=== PATIENT | male | born 1935 | race Caucasian/White ===

== ENCOUNTER 2018-12-09 19:23 | Inpatient (IN) | payer BC ==
[~2018-12-09] VITALS: Ht 165.1 cm; Wt 62.0 kg
[2018-12-09] MEDS ORDERED: AUGM500T34 PO (19:32)
[2018-12-09] MEDS ORDERED: DONE10TA90 PO (19:32)
[2018-12-09] MEDS ORDERED: FLOM0.4C39 PO (19:32)
[2018-12-09] MEDS ORDERED: DEPA500T2 PO (19:32)
[2018-12-09] MEDS: DONEPEZIL 5 MG TAB PO SCH (21:00)
[2018-12-09 22:06] LABS: BASO # 0.1 10^3/uL (0.0-0.2); BASO % 0.5 % (0.0-1.0); EOS # 0.1 10^3/uL (0.0-0.5); EOS % 1.1 % (0.0-3.0); HEMATOCRIT 30.4 % (42.0-52.0); HEMOGLOBIN 10.2 g/dl (13.5-17.5); LYMPH # 1.1 10^3/uL (1.5-5.0); LYMPH % 10.2 % (24.0-44.0); MEAN CORPUSCULAR HEMOGLOBIN 33.4 pg (27.0-33.0); MEAN CORPUSCULAR HGB CONC 33.6 g/dl (32.0-36.5); MEAN CORPUSCULAR VOLUME 99.7 fl (80.0-96.0); MONO % 9.7 % (0.0-5.0); NEUTROPHILS % 77.7 % (36.0-66.0); PLATELET COUNT, AUTOMATED 325 10^3/uL (150-450); RED BLOOD COUNT 3.05 10^6/uL (4.30-6.10); WHITE BLOOD COUNT 10.3 10^3/uL (4.0-10.0)
[2018-12-09 22:27] LABS: ALBUMIN 2.6 GM/DL (3.2-5.2); ALT/SGPT 20 U/L (12-78); BILIRUBIN,DIRECT < 0.1 MG/DL (0.0-0.2); BILIRUBIN,TOTAL 0.4 MG/DL (0.2-1.0); BLOOD UREA NITROGEN 31 MG/DL (7-18); CALCIUM LEVEL 8.6 MG/DL (8.8-10.2); CARBON DIOXIDE LEVEL 27 MEQ/L (21-32); CHLORIDE LEVEL 107 MEQ/L (98-107); CREATININE FOR GFR 1.28 MG/DL (0.70-1.30); GLUCOSE, FASTING 95 MG/DL (70-100); POTASSIUM SERUM 5.5 MEQ/L (3.5-5.1); SODIUM LEVEL 140 MEQ/L (136-145); TOTAL PROTEIN 7.2 GM/DL (6.4-8.2)
[2018-12-09 23:06] LABS: NT-PRO BNP 1391 PG/ML (<450)
--- NOTE | 2018-12-10 00:21 | HPEPDOC ---
General Date of Admission Date of Service: Dec 10, 2018 Chief Complaint The patient is a 83-year-old male admitted with a reason for visit of Weakness. History of Present Illness Pt is a 83 yo male with PMH of RA, COPD, dementia, and HTN presented to [facility] due to 3 weeks of generalized weakness and right fifth toe wound for a month. It was noted that he had been receiving augmentin about a week ago without improvement, and that his staff nuclear weapons officer said he will need to see a vascular surgeon. It was noted that it first appeared as tissue irritation/erythema, and it evolved into an eschar/gangrene; pt reported intermittent pain in the toe. No other symptoms reported. Pt was treated for PNA in August, but he still has some productive cough with yellow sputum. Pt usually walks with a walker at home, but he has not been able to since the generalized weakness, and family reported worsening of weakn ess especially from 2-3 days ago. Denies any fever, chills, nausea, vomiting, dyspnea, abdominal pain, constipation, or diarrhea. Home Medications Scheduled Amoxicillin/Potassium Clav (Augmentin 500-125 Tablet) 1 Each Tablet, 500 MG PO BID, (Reported) 10 DAYS SUPPLY: STARTING 12/01/18 Cholecalciferol (Vitamin D3) (Vitamin D3) 1,000 Unit Tablet, 1,000 UNIT PO QHS, (Reported) Cyanocobalamin (Vitamin B-12) (Vitamin B-12) 1,000 Mcg Tab.subl, 1,000 MCG SL QHS, (Reported) Divalproex Sodium (Divalproex Sodium ER) 500 Mg Tab.er.24h, 500 MG PO QHS, ( Reported) Donepezil HCl (Donepezil HCl) 10 Mg Tablet, 10 MG PO QHS, (Reported) Folic Acid (Folic Acid) 1 Mg Tablet, 1 MG PO QHS, (Reported) Tamsulosin HCl (Flomax) 0.4 Mg Capsule, 0.8 MG PO QHS, (Reported) Allergies Coded Allergies: No Known Allergies (Unverified , 12/09/18) Past Medical History Medical History Dementia Past pneumonia HTN Rheumatoid arthritis COPD Social History * Smoker: Denies A-FIB/CHADSVASC A-FIB History Current/History of A-Fib/PAF?: No Review of Systems Constitutional: Reports: Weakness (Generalized); Denies: Chills, Fever Skin: Reports: Lesions (right little toe) Pulmonary: Reports: Cough; Denies: Dyspnea, Pleuritic Chest Pain Cardiovascular: Denies: Chest Pain, Palpitations Gastrointestinal: Denies: Abdominal Pain, Diarrhea, Constipation Neurological: Reports: Other Symptoms (baseline dementia) Physical Examination General Exam: Positive: Alert, Cooperative, No Acute Distress Eye Exam: Negative: Sclera icteric ENT Exam: Positive: Atraumatic Neck Exam: Positive: Supple Chest Exam: Positive: Clear to auscultation, Normal air movement; Negative: Rales, Rhonchi, Wheezing Heart Exam: Positive: Rate Normal, Regular Rhythm, Normal S1, Normal S2; Negative: Murmurs Abdomen Exam: Positive: Normal bowel sounds, Soft; Negative: Tenderness Skin Exam: Positive: Breakdown (pruluent drainag on right little toe and web area b/w right 4th and 5th toe), Lesion (Eschar/necrosis of 5th right toe) Neuro Exam: Positive: Strength at 5/5 X4 ext Psych Exam: Positive: Mood NL, Other (mild dementia/slowed response) Vital Signs Vital Signs Date Time Temp Pulse Resp B/P (MAP) Pulse Ox O2 Delivery O2 Flow Rate FiO2 12/09/18 23:23 64 17 191/87 (121) 94 12/09/18 20:52 99.1 Room Air Laboratory Data Labs 24H Laboratory Tests 2 12/09/18 21:34: Immature Granulocyte % (Auto) 0.8, White Blood Count 10.3H, Red Blood Count 3.05L, Hemoglobin 10.2L, Hematocrit 30.4L, Mean Corpuscular Volume 99.7H, Mean Corpuscular Hemoglobin 33.4H, Mean Corpuscular Hemoglobin Concent 33.6, Red Cell Distribution Width 15.7H, Platelet Count 325, Neutrophils (%) (Auto) 77.7H, Lymphocytes (%) (Auto) 10.2L, Monocytes (%) (Auto) 9.7H, Eosinophils (%) (Auto) 1.1, Basophils (%) (Auto) 0.5, Neutrophils # (Auto) 8.0, Lymphocytes # (Auto) 1.1L, Monocytes # (Auto) 1.0H, Eosinophils # (Auto) 0.1, Basophils # (Auto) 0.1, Nucleated Red Blood Cells % (auto) 0.0, Anion Gap 6L, Glomerular Filtration Rate 57.0, Lactic Acid Level 1.0, Calcium Level 8.6L, Aspartate Amino Transf (AST/SGOT) 28, Alanine Aminotransferase (ALT/SGPT) 20, Alkaline Phosphatase 78, Total Bilirubin 0.4, Direct Bilirubin < 0.1, SS-Ryu-J-Type Natriuretic Peptide 1391H, Total Protein 7.2, Albumin 2.6L, Albumin/Globulin Ratio 0.57L CBC/BMP Laboratory Tests 12/09/18 21:34 Red Blood Count 3.05 L, Mean Corpuscular Volume 99.7 H, Mean Corpuscular Hemoglobin 33.4 H, Mean Corpuscular Hemoglobin Concent 33.6, Red Cell Distribution Width 15.7 H, Neutrophils (%) (Auto) 77.7 H, Lymphocytes (%) (Auto) 10.2 L, Monocytes (%) (Auto) 9.7 H, Eosinophils (%) (Auto) 1.1, Basophils (%) (Auto) 0.5, Neutrophils # (Auto) 8.0, Lymphocytes # (Auto) 1.1 L, Monocytes # (Auto) 1.0 H, Eosinophils # (Auto) 0.1, Basophils # (Auto) 0.1 Microbiology Microbiology 12/09/18 Blood Culture, Received Pending Assessment/Plan 1. Right fifth toe eschar/necrosis 2/2 cellulitis vs osteomyelitis vs antiphospholipid syndrome ulcer vs calciphylaxis vs less likely herpetic shagufta -MRI right foot ordered to r/o osteomyelitis, wound cx and gram stain -hold home med Ca supplement. Phos and PTH lvl pending -Start IV Vanco; wound care -Consider staff nuclear weapons officer and/or vascular surgeon consult in the morning 2. Rheumatoid arthritis -Pt has been having home med MTX on held -cont to hold MTX at this time; cont home med folic acid 3. COPD -no signs of exacerbation at this time. Cont duoneb, oxy therapy 4. HTN -Not on home med. Pt was on HCTZ but had not been on the medication. BP elevated with SBP 170s in ER. Give one dose of 12.5 HCTZ now. Vital signs as scheduled. HCTZ 12.5mg daily with holding parameters 5. Dementia -Cont home meds DVT prophylaxis SCD and TEDS diet: low Na diet I, Oscar Allan, have independently examined this patient and performed my own physical exam, as well as reviewed the documentation and edited where necessary. I have discussed in detail with the resident / student the findings and plan of treatment as documented by the resident / student and edited their note. There is concern for acute osteomyelitis, I started broad-spectrum antibiotics empirically. Foot MRI ordered to rule out or confirm osteomyelitis of right 5th toe. Appreciate/agree with staff nuclear weapons officer consult. We will check sedimentation rate and CRP I agree with their findings and treatment plan and have edited their documentation. I will continue to follow the patient during this hospital stay. Plan / VTE VTE Prophylaxis Ordered?: Yes KIRBY FULTON DO Dec 10, 2018 00:21 OSCAR ALLAN DO Dec 10, 2018 06:44
[2018-12-10] MEDS ORDERED: COMBIVENT RESPIMAT 100-20MCG INHALER 4GM INH SCH (00:30)
[2018-12-10] MEDS ORDERED: VANCOMYCIN HCL 1 MG in IV FLUID PLACE HOLDER 1 EA IV SCH (00:45)
[2018-12-10] MEDS ORDERED: VANCOMYCIN HCL 1,000 MG, VIAL MATE ADAPTER 1 EACH in D5W 250 ML IV ONE (01:00)
[2018-12-10] MEDS ORDERED: B-12100011 SL (01:02)
[2018-12-10] MEDS ORDERED: D31000TA PO (01:02)
[2018-12-10] MEDS ORDERED: DIVA500T9 PO (01:02)
[2018-12-10] MEDS ORDERED: FOLI1TAB11 PO (01:02)
[2018-12-10] MEDS ORDERED: AUGM500T34 PO (01:02)
[2018-12-10] MEDS ORDERED: hydroCHLOROthiazide 12.5 MG CAPSULE PO ONE (01:15)
--- NOTE | 2018-12-10 02:03 | PHACANCOPD ---
PHARMACY VANCOMYCIN DOSING Pt Demographics Demographics Patient Age:83 , Weight:62.270 , Gender: male Adjusted Body Weight Date: 12/10/18, Adjusted Body Weight: Kg Events Past 24 Hours Events Past 24 Hours: NO: Dialysis, Diuretic Therapy, Change in CrCl, Fever, Elevation in WBC, Pending Diagnostics, Pending Procedures, Other Vancomycin Vancomycin Target Ranges: 15-20 mcg/ml Vancomycin Load Y/N: No Load Dose Date Time Vancomycin Load Dose: Date: Time: Vancomycin Dose Date: 12/10/18. Current Vancomycin Dose: [1000mg q24h] Intermittent Dosing?: No Labs Labs Item Value Date Time White Blood Count 10.3 10^3/uL H 12/09/182133 Glomerular Filtration Rate 57.0 12/09/182133 Creatinine 1.28 MG/DL 12/09/182133 Blood Urea Nitrogen 31 MG/DL H 12/09/182133 Vital Signs Label Value Date Time Patient Temperature 99.1 degrees F 12/09/182051 Temperature Source Temporal 12/09/182051 Micro Microbiology 12/09/18 Blood Culture, Received Pending Creatinine Clearance Date:12/10/18. Creatinine Clearance: [~35]. Pending Labs Trough 09-13 @1999 Assessment and Plan Maintaining Current Dose?: Yes Reason for dose change: No Dose Change Pharmacist Note Pharmacist Note Date: 12/10/18. Pharmacist note:Will monitor and make adjustments as needed. [facility] Dec 10, 2018 02:03
[2018-12-10 02:45] LABS: PHOSPHORUS LEVEL 3.2 MG/DL (2.5-4.9)
[2018-12-10] MEDS: DIVALPROEX 500MG *ER* TAB PO SCH ×2 (06:41→20:48)
[2018-12-10] MEDS: FOLIC ACID 1 MG TAB PO SCH ×2 (06:41→20:48)
[2018-12-10] MEDS: TAMSULOSIN 0.4 MG CAP PO SCH ×2 (06:41→20:48)
[2018-12-10] MEDS: PIPERACILLIN/TAZOBACTAM SOD 3.375 GM in D5W MINI-BAG PLUS 50 ML IV SCH ×3 (06:42→20:47)
[2018-12-10] MEDS: hydroCHLOROthiazide 12.5 MG CAPSULE PO SCH (06:42)
[2018-12-10 07:55] LABS: BASO # 0.1 10^3/uL (0.0-0.2); BASO % 0.4 % (0.0-1.0); EOS # 0.3 10^3/uL (0.0-0.5); EOS % 2.5 % (0.0-3.0); HEMATOCRIT 36.6 % (42.0-52.0); HEMOGLOBIN 12.2 g/dl (13.5-17.5); LYMPH # 1.6 10^3/uL (1.5-5.0); LYMPH % 14.4 % (24.0-44.0); MEAN CORPUSCULAR HEMOGLOBIN 32.8 pg (27.0-33.0); MEAN CORPUSCULAR HGB CONC 33.3 g/dl (32.0-36.5); MEAN CORPUSCULAR VOLUME 98.4 fl (80.0-96.0); MONO # 1.2 10^3/uL (0.0-0.8); MONO % 10.5 % (0.0-5.0); NEUTROPHILS % 71.4 % (36.0-66.0); PLATELET COUNT, AUTOMATED 402 10^3/uL (150-450); RED BLOOD COUNT 3.72 10^6/uL (4.30-6.10); WHITE BLOOD COUNT 11.3 10^3/uL (4.0-10.0)
[2018-12-10] MEDS: IPRATROPIUM 0.5MG/ALBUTEROL 2.5MG INH SOL UD 3ML (DUONEB)(J7620) INH SCH ×4 (07:57→20:28)
[2018-12-10 08:12] LABS: ERYTHROCYTE SEDIMENTATION RATE 72 mm/hr (0-20)
[2018-12-10 08:12] LABS: C REACTIVE PROTEIN QUANTITATIV 3.98 MG/DL (0.00-0.30)
--- NOTE | 2018-12-10 08:14 | ECGEPIP ---
[facility] - ED Test Date: 2018-12-09 Pat Name: VLADIMIR POOLE Department: Room: [place] [address] Gender: Male Market Research Analyst: RANDY : 1935 Requested By: BOBBY Cain Order Number: [id number] Reading MD: Kacy Stubbs Measurements Intervals Byron Rate: 74 P: 16 ND: 141 QRS: -7 QRSD: 85 T: 18 QT: 390 QTc: 434 Interpretive Statements SINUS RHYTHM VOLTAGE CRITERIA FOR LVH NO PRIOR Electronically Signed on 12-10-2018 8:13:57 EDT by Kacy Stubbs
[2018-12-10 08:24] LABS: BLOOD UREA NITROGEN 29 MG/DL (7-18); CALCIUM LEVEL 8.7 MG/DL (8.8-10.2); CARBON DIOXIDE LEVEL 27 MEQ/L (21-32); CHLORIDE LEVEL 106 MEQ/L (98-107); CREATININE FOR GFR 1.18 MG/DL (0.70-1.30); GLOMERULAR FILTRATION RATE > 60.0 (>35); GLUCOSE, FASTING 87 MG/DL (70-100); MAGNESIUM LEVEL 2.1 MG/DL (1.8-2.4); POTASSIUM SERUM 4.1 MEQ/L (3.5-5.1); SODIUM LEVEL 140 MEQ/L (136-145)
[2018-12-10 08:31] LABS: PTH INTACT 29.8 PG/ML (18.5-88.0)
[2018-12-10] MEDS ORDERED: HEPARIN SOD (PORCINE) 5000 UNITS/ML VIAL SC SCH (09:00)
--- NOTE | 2018-12-10 09:06 | REP ---
Oral chest x-ray: Single view. History: Weakness. No comparison study. Findings: EKG monitoring electrodes are seen. The heart appears mildly prominent. Interstitial markings are increased particulate the bases consistent with fibrosis and/or interstitial edema. There is coarse linear discoid atelectasis or fibrosis at the right base. Pulmonary vasculature is not increased. There is some vascular calcification and diffuse osteopenia. Impression: Interstitial lung disease most prominent at the bases, fibrosis versus edema. Squared atelectasis versus coarse fibrosis right base. Electronically Signed by Jacinto Eisenberg MD 12/10/2018 08:59 A
--- NOTE | 2018-12-10 09:27 | REP ---
RIGHT TOE SERIES: HISTORY: Swelling of the 5th toe. Rule out osteomyelitis. Soft tissue eschar. FINDINGS: Incidental note is made of a severe hammertoe deformity of the 2nd digit. There is some vascular calcification. Overall mineralization pattern is normal. There is soft tissue swelling about the 5th proximal phalanx. No bony erosive change is seen. There may be some soft tissue gas adjacent to the proximal phalanx of the 5th toe. Lateral view shows diffuse soft tissue swelling dorsally over the forefoot. No opaque foreign body is seen. IMPRESSION: Possible soft tissue emphysema. Diffuse swelling. No acute bony erosive change. Electronically Signed by Jacinto Eisenberg MD 12/10/2018 12:53 P
[2018-12-10] MEDS ORDERED: ISOVUE-370 76% 100ML VIAL (Q9967) As Ordered ONE (09:46)
--- NOTE | 2018-12-10 10:54 | REP ---
CT STUDY RIGHT FOOT WITH IV CONTRAST: HISTORY: Right 5th digit necrosis. Comparison radiograph is from 09:[address] on the previous day. CT CONTRAST DOSE: 100 mL of intravenous Isovue 370. TECHNIQUE: Helical scanning is acquired and 2 mm axial images are generated. Coronal and sagittal MPR images are generated. CT FINDINGS: There is one bubble of gas in the soft tissues just medial to the proximal phalanx of the 5th toe. No other soft tissue emphysema is seen. There is no bony erosive change. No fracture is appreciated. There is no evidence of soft tissue abscess. No abnormal contrast enhancement is seen. There is diffuse dorsal forefoot and midfoot soft tissue swelling and there is diffuse swelling medially and laterally at the ankle. IMPRESSION: Diffuse soft tissue swelling of the forefoot, midfoot and ankle. No abscess is seen. One bubble of soft tissue gas is seen along the medial aspect of the proximal phalanx of the 5th digit. No other soft tissue emphysema is seen. No erosive change is seen to suggest osteomyelitis by CT criteria. Vascular calcification is noted. Electronically Signed by Jacinto Eisenberg MD 12/10/2018 12:59 P
--- NOTE | 2018-12-10 11:21 | REP ---
Right lower extremity Duplex Doppler venous ultrasound: Real time compression and duplex Doppler interrogation of the right lower extremity deep venous system is performed. The right common femoral, superficial femoral and popliteal veins are fully compressible with transducer pressure and demonstrate normal spontaneous and phasic flow, without evidence of deep venous thrombosis. Impression: No evidence of deep venous thrombosis of the right lower extremity femoral popliteal venous system. Electronically Signed by Jameson Duarte MD 12/10/2018 11:13 A
[2018-12-10 12:45] VITALS: BP 153/66
[2018-12-10 14:00] VITALS: BP 153/66
--- NOTE | 2018-12-10 14:54 | IPNPDOC ---
Text Note Date of Service The patient was seen on 12/10/18. NOTE SUBJECTIVE: Patient seen this AM in ED holding bed while eating breakfast, was not with him. He was unable to give much of a history likely secondary to his underlying dementia, but stated he had problems with his R-fifth toe for at least the past 2 weeks, but not longer than a month. He does not recall any specific inciting injury and nothing like this has happened before. Per Dr. Parra's note, the patient is being seen by a dry boss who recommended vascular surgery consultation after being on Augmentin for a week without improvement. OBJECTIVE: PHYSICAL EXAM: Vitals: (see below) General: No acute distress, laying comfortably in bed. HEENT: Normocephalic, atraumatic. EOMI. No scleral icterus. Moist mucous membranes. No pharyngeal erythema or uvular deviation. Neck: No JVD, lymphadenopathy, or thyromegaly. Cardiac: RRR, Normal S1 and S2, No murmurs, gallops, rubs. Pulm: Clear to auscultation b/l. Symmetric thorax. No wheezing, crackles, rhonchi Abd: Bowel Sounds present. Abdomen is soft, non-tender, non-distended. No guarding, rebound tenderness, or rigidity. No hepatosplenomegaly. No masses or eccymosis. Ext: Right lower extremity with circumferential 2+ pitting edema up to the ankle. 1+ DP, PT pulses. R-fifth digit circumferentially black with both hard planter and surrounding soft areas. No capillary refill appreciated in toe. Tingling sensation on palpation of 5th digit and below the ankle as well. LLE normal. Neuro: No focal neuro deficits LABORATORY DATA, MICROBIOLOGY: Please see below. IMAGING STUDIES: 12/09/18 chest x-ray: Interstitial lung disease most prominent at the bases, fibrosis versus edema. Squared atelectasis versus coarse fibrosis right base. 12/09/18 toe x-ray: Possible soft tissue emphysema. Diffuse swelling. No acute bony erosive change. 12/10/[address]: Diffuse soft tissue swelling of the forefoot, midfoot and ankle. No abscess is seen. One bubble of soft tissue gas is seen along the medial aspect of the proximal phalanx of the 5th digit. No other soft tissue emphysema is seen. No erosive change is seen to suggest osteomyelitis by CT criteria. Vascular calcification is noted. 12/10/18 vascular ultrasound: No evidence of deep venous thrombosis of the right lower extremity femoral popliteal venous system. ASSESSMENT AND PLAN: #. Right fifth toe necrosis -Consulted Dr. Hart, who will see patient today. CT angiogram ordered showing small bubble of soft tissue gas in medial aspect of proximal 5th digit. No erosive change to suggest osteomyelitis. RLE ultrasound negative for DVT. Rec ommendations from Dr. Hart appreciated. I imagine patient will likely require toe amputation as it does not seem viable at this time. We will continue to monitor. Given that their is evidence of gangrene we will continue broad spectrum antibiotics for the time being as well. #. Hypertension Continue hydrochlorothiazide, will continue to monitor and make appropriate changes. #.Rheumatoid Arthritis -Patient is on methotrexate at home, continue to hold - Continue folic acid supplements. #. COPD Continue home DuoNeb, albuterol #. Dementia Continue home donepezil, Depakote #.BPH -Continue flomax DVT prophylaxis: Teds and sequentials / Heparin DISPOSITION: Pending clinical improvement VS,Romy, I+O VS, Romy, I+O Laboratory Tests 12/09/18 21:34 Red Blood Count 3.05 L, Mean Corpuscular Volume 99.7 H, Mean Corpuscular Hemoglobin 33.4 H, Mean Corpuscular Hemoglobin Concent 33.6, Red Cell Distribution Width 15.7 H, Neutrophils (%) (Auto) 77.7 H, Lymphocytes (%) (Auto) 10.2 L, Monocytes (%) (Auto) 9.7 H, Eosinophils (%) (Auto) 1.1, Basophils (%) (Auto) 0.5, Neutrophils # (Auto) 8.0, Lymphocytes # (Auto) 1.1 L, Monocytes # (Auto) 1.0 H, Eosinophils # (Auto) 0.1, Basophils # (Auto) 0.1 12/10/18 07:25 Red Blood Count 3.72 L, Mean Corpuscular Volume 98.4 H, Mean Corpuscular Hemoglobin 32.8, Mean Corpuscular Hemoglobin Concent 33.3, Red Cell Distribution Width 15.7 H, Neutrophils (%) (Auto) 71.4 H, Lymphocytes (%) (Auto) 14.4 L, Monocytes (%) (Auto) 10.5 H, Eosinophils (%) (Auto) 2.5, Basophils (%) (Auto) 0.4, Neutrophils # (Auto) 8.0, Lymphocytes # (Auto) 1.6, Monocytes # (Auto) 1.2 H, Eosinophils # (Auto) 0.3, Basophils # (Auto) 0.1 12/10/18 07:34 Calcium Level 8.7 L Vital Signs Date Time Temp Pulse Resp B/P (MAP) Pulse Ox O2 Delivery O2 Flow Rate FiO2 12/10/18 12:45 97.6 64 18 153/66 (95) 97 12/10/18 08:15 Room Air GME ATTESTATION GME ATTESTATION My faculty preceptor for this patient encounter was physically present during the encounter and was fully available. All aspects of the patient interview, examination, medical decision making process, and medical care plan development were reviewed and approved by the faculty preceptor. The faculty preceptor is aware and concurs with the plan as stated in the body of this note and will attest to such by his/her cosignature. ATTENDING NOTE I, Oumar Doherty, have independently examined this patient and performed my own physical exam, as well as reviewed the documentation and edited where necessary. I have discussed in detail with the resident / student the findings and plan of treatment as documented by the resident / student and edited their note. I agree with their findings and treatment plan and have edited their documentation. I will continue to follow the patient during this hospital stay. SHEBA IRVING DO Dec 10, 2018 14:53 OUMAR DOHERTY MD Dec 10, 2018 15:49
[2018-12-10] MEDS: CYANOCOBALAMIN 500 MCG TAB PO SCH (15:10)
[2018-12-10] MEDS: HEPARIN SOD (PORCINE) 5000 UNITS/ML VIAL SC SCH ×2 (15:30→22:26)
[2018-12-10] MEDS: DONEPEZIL 5 MG TAB PO SCH (20:48)
[2018-12-10 22:00] VITALS: BP 148/85
[2018-12-10] MEDS: VANCOMYCIN HCL 1,000 MG, VIAL MATE ADAPTER 1 EACH in D5W 250 ML IV SCH (22:26)
[2018-12-11] MEDS: PIPERACILLIN/TAZOBACTAM SOD 3.375 GM in D5W MINI-BAG PLUS 50 ML IV SCH ×3 (03:47→20:21)
[2018-12-11] MEDS: HEPARIN SOD (PORCINE) 5000 UNITS/ML VIAL SC SCH ×3 (05:27→22:16)
[2018-12-11 06:00] VITALS: BP 167/77
[2018-12-11 07:09] LABS: HEMATOCRIT 33.7 % (42.0-52.0); HEMOGLOBIN 11.4 g/dl (13.5-17.5); MEAN CORPUSCULAR HEMOGLOBIN 32.1 pg (27.0-33.0); MEAN CORPUSCULAR HGB CONC 33.8 g/dl (32.0-36.5); MEAN CORPUSCULAR VOLUME 94.9 fl (80.0-96.0); PLATELET COUNT, AUTOMATED 377 10^3/uL (150-450); RED BLOOD COUNT 3.55 10^6/uL (4.30-6.10); WHITE BLOOD COUNT 12.3 10^3/uL (4.0-10.0)
[2018-12-11] MEDS: IPRATROPIUM 0.5MG/ALBUTEROL 2.5MG INH SOL UD 3ML (DUONEB)(J7620) INH SCH ×4 (07:13→20:49)
--- NOTE | 2018-12-11 07:24 | CR ---
DATE: 12/10/2018 CHIEF COMPLAINT: 83-year-old male seen for evaluation of swelling and pain of his 5th toe. Patient states it has been painful and swollen for several days. However, patient is a poor historian. He states it does not give him pain on a continuous basis but it is proximal in nature. PAST MEDICAL HISTORY: Positive for rheumatoid arthritis. Chronic obstructive pulmonary disease. Dementia. Hypertension. HOME MEDICATIONS: - vitamin D3 - donepezil 10 mg - folic acid 1 mg tablet - Flomax 0.4 mg - divalproex 500 tablet PHYSICAL EXAMINATION: Reveals and 83-year-old male. He is in no acute distress. Evaluation of his foot reveals a swollen right lower extremity. The entire dorsal aspect of the toe is firm and necrotic. He has a discolored planar 5th toe with no capillary filling time. Dorsalis pedis and posterior tibial pulses are not palpable but the popliteal pulse is palpable. Laboratory studies were reviewed revealing a white blood cell count of 11.3, ESR 72, C-reactive protein 3.98. Imaging studies were reviewed. Toe x-rays were negative for osteomyelitis. Foot CT was also negative for osteomyelitis. Some air noted in the soft tissue at the location of his dark eschar. Vascular duplex scan negative for deep vein thrombosis on the right side. ASSESSMENT: Necrotic 5th toe right foot. PLAN: Discussed with the patient monitoring his toe. This toe is not viable. We discussed since it is well demarcated a surgical amputation of the 5th toe could be performed. However, we could left the toe completely necrose, possible auto amputate. Discussed with the patient his options. He stated that he would like to talk to his to discuss his options. His questions were answered. Thank you for this consultation.
[2018-12-11 08:38] LABS: C REACTIVE PROTEIN QUANTITATIV 3.19 MG/DL (0.00-0.30); CALCIUM LEVEL 8.8 MG/DL (8.8-10.2); CREATININE FOR GFR 1.29 MG/DL (0.70-1.30); GLOMERULAR FILTRATION RATE 56.5 (>35); POTASSIUM SERUM 3.7 MEQ/L (3.5-5.1)
[2018-12-11] MEDS: hydroCHLOROthiazide 12.5 MG CAPSULE PO SCH (08:55)
[2018-12-11] MEDS: CYANOCOBALAMIN 500 MCG TAB PO SCH (08:55)
[2018-12-11 08:56] VITALS: BP 125/96
--- NOTE | 2018-12-11 10:09 | IPNPDOC ---
Text Note Date of Service The patient was seen on 12/11/18. NOTE SUBJECTIVE: No acute events overnight. Patient was seen by Dr. Hart last night but wanted to speak with his before making a decision regarding whether or not he should have surgery or let the toe fall off. addendum: Dr. Hart had long discussion with and about surgery vs letting the toe fall off on its own. The then asked to speak with me and I voiced agreement with Dr. Hart's plan. They want the toe to fall off on its own and do not wish to pursue surgery at this time. OBJECTIVE: PHYSICAL EXAM: Vitals: (see below) General: No acute distress, laying comfortably in bed. HEENT: Normocephalic, atraumatic. EOMI. No scleral icterus. Moist mucous membranes. No pharyngeal erythema or uvular deviation. Neck: No JVD, lymphadenopathy, or thyromegaly. Cardiac: RRR, Normal S1 and S2, No murmurs, gallops, rubs. Pulm: Clear to auscultation b/l. Symmetric thorax. No wheezing, crackles, rhonchi Abd: Bowel Sounds present. Abdomen is soft, non-tender, non-distended. No guarding, rebound tenderness, or rigidity. No hepatosplenomegaly. No masses or eccymosis. Ext: Right lower extremity with circumferential 2+ pitting edema up to the ankle. 1+ DP, PT pulses. R-fifth digit circumferentially black with both hard planter and surrounding soft areas. No capillary refill appreciated in toe. Tingling sensation on palpation of 5th digit and below the ankle as well. LLE normal. Neuro: No focal neuro deficits LABORATORY DATA, MICROBIOLOGY: Please see below. IMAGING STUDIES: 12/09/18 chest x-ray: Interstitial lung disease most prominent at the bases, fibrosis versus edema. Squared atelectasis versus coarse fibrosis right base. 12/09/18 toe x-ray: Possible soft tissue emphysema. Diffuse swelling. No acute bony erosive change. 12/10/[address]: Diffuse soft tissue swelling of the forefoot, midfoot and ankle. No abscess is seen. One bubble of soft tissue gas is seen along the medial aspect of the proximal phalanx of the 5th digit. No other soft tissue emphysema is seen. No erosive change is seen to suggest osteomyelitis by CT criteria. Vascular calcification is noted. 12/10/18 vascular ultrasound: No evidence of deep venous thrombosis of the right lower extremity femoral popliteal venous system. ASSESSMENT AND PLAN: #. Right fifth toe necrosis -Consulted Dr. Hart, who will see patient today. CT angiogram ordered showing small bubble of soft tissue gas in medial aspect of proximal 5th digit. No erosive change to suggest osteomyelitis. RLE ultrasound negative for DVT. Recommendations from Dr. Hart appreciated. -Continue broad spectrum antibiotics in the setting of gangrene - will be in today at 11:30 so we will await a decision after that. Dr. Hart going on vacation so may need Dr. Murphy if the plan is for surgery. -Patient will work with PT #. Hypertension Continue hydrochlorothiazide, will continue to monitor and make appropriate changes. #.Rheumatoid Arthritis -Patient is on methotrexate at home, continue to hold - Continue folic acid supplements. #. COPD Continue home DuoNeb, albuterol #. Dementia Continue home donepezil, Depakote #.BPH -Continue flomax DVT prophylaxis: Teds and sequentials / Heparin DISPOSITION: Pending clinical improvement VSRomy, I+O VS, Romy, I+O Laboratory Tests 12/11/18 06:53 Red Blood Count 3.55 L, Mean Corpuscular Volume 94.9, Mean Corpuscular Hemoglobin 32.1, Mean Corpuscular Hemoglobin Concent 33.8, Red Cell Distribution Width 15.6 H, Calcium Level 8.8 Vital Signs Date Time Temp Pulse Resp B/P (MAP) Pulse Ox O2 Delivery O2 Flow Rate FiO2 12/11/18 08:56 87 125/96 (106) 12/11/18 06:00 96.7 17 95 12/10/18 08:15 Room Air I&O- Last 24 Hours up to 6 AM 12/11/18 06:00 Intake Total 1290 ml Output Total 425 ml Balance 865 ml GME ATTESTATION GME ATTESTATION My faculty preceptor for this patient encounter was physically present during the encounter and was fully available. All aspects of the patient interview, examination, medical decision making process, and medical care plan development were reviewed and approved by the faculty preceptor. The faculty preceptor is aware and concurs with the plan as stated in the body of this note and will attest to such by his/her cosignature. ATTENDING NOTE I, Oumar Doherty, have independently examined this patient and performed my own physical exam, as well as reviewed the documentation and edited where necessary. I have discussed in detail with the resident / student the findings and plan of treatment as documented by the resident / student and edited their note. I agree with their findings and treatment plan and have edited their documentation. I will continue to follow the patient during this hospital stay. SHEBA IRVING DO Dec 11, 2018 10:09 OUMAR DOHERTY MD Dec 11, 2018 14:28
[2018-12-11 14:00] VITALS: BP 133/60
--- NOTE | 2018-12-11 18:07 | IPN ---
DATE: 12/11/2018 CHIEF COMPLAINT: The patient is seen today at bedside with his present. The patient was seen in the emergency room on where he had a dry gangrene on the top of his foot and some cyanotic changes of the fifth toe. We discussed with the patient a fifth toe amputation or letting his toe mummify and then fall off. He states he wishes to discuss this with his and he is seen today with his at bedside. The foot was evaluated. The foot has continued to remain swollen but considerably less swelling of the lower leg and foot. 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 Talking with the patient and his , they do not wish to have any surgery. They wish to have the toe mummify and fall off and we discuss with the patient they can change their opinion at any time and we will be happy to follow them in the future. She did state she was concerned about the toe falling off. I did advise the patient that they can keep a sock on his foot while in bed and try to monitor his toe daily for any changes. Their questions were answered.
[2018-12-11 20:00] VITALS: BP 171/71
[2018-12-11] MEDS: DONEPEZIL 5 MG TAB PO SCH (20:21)
[2018-12-11] MEDS: FOLIC ACID 1 MG TAB PO SCH (20:21)
[2018-12-11] MEDS: DIVALPROEX 500MG *ER* TAB PO SCH (20:22)
[2018-12-11] MEDS: TAMSULOSIN 0.4 MG CAP PO SCH (20:22)
[2018-12-11] MEDS: VANCOMYCIN HCL 1,000 MG, VIAL MATE ADAPTER 1 EACH in D5W 250 ML IV SCH (22:16)
[2018-12-11 23:15] VITALS: BP 144/76
[2018-12-12] MEDS: IPRATROPIUM 0.5MG/ALBUTEROL 2.5MG INH SOL UD 3ML (DUONEB)(J7620) INH SCH ×3 (01:17→14:00)
[2018-12-12] MEDS: PIPERACILLIN/TAZOBACTAM SOD 3.375 GM in D5W MINI-BAG PLUS 50 ML IV SCH (04:49)
[2018-12-12] MEDS: HEPARIN SOD (PORCINE) 5000 UNITS/ML VIAL SC SCH ×3 (05:51→21:25)
[2018-12-12 06:00] VITALS: BP 136/59
[2018-12-12 06:27] LABS: HEMATOCRIT 35.3 % (42.0-52.0); HEMOGLOBIN 11.8 g/dl (13.5-17.5); MEAN CORPUSCULAR HEMOGLOBIN 32.5 pg (27.0-33.0); MEAN CORPUSCULAR HGB CONC 33.4 g/dl (32.0-36.5); MEAN CORPUSCULAR VOLUME 97.2 fl (80.0-96.0); PLATELET COUNT, AUTOMATED 353 10^3/uL (150-450); RED BLOOD COUNT 3.63 10^6/uL (4.30-6.10)
[2018-12-12 06:59] LABS: C REACTIVE PROTEIN QUANTITATIV 4.7 MG/DL (0.00-0.30); CALCIUM LEVEL 8.7 MG/DL (8.8-10.2); CREATININE FOR GFR 1.36 MG/DL (0.70-1.30); GLOMERULAR FILTRATION RATE 53.1 (>35); POTASSIUM SERUM 3.9 MEQ/L (3.5-5.1)
[2018-12-12] MEDS: CYANOCOBALAMIN 500 MCG TAB PO SCH (09:32)
[2018-12-12] MEDS: hydroCHLOROthiazide 12.5 MG CAPSULE PO SCH (09:32)
--- NOTE | 2018-12-12 12:56 | IPNPDOC ---
Text Note Date of Service The patient was seen on 12/12/18. NOTE SUBJECTIVE: Pt reported no complaints including any fever, chills, nausea, vomiting. It was noted that per pt and family discussion with Dr. Hart, they would like to have the right fifth toe mummified instead of pursuing surgery at this time. It was noted that pt had not cleared PT yet OBJECTIVE: PHYSICAL EXAM: General: No acute distress, laying comfortably in bed. HEENT: Normocephalic, atraumatic. No scleral icterus. Moist mucous membranes. Neck: supple Cardiac: RRR, Normal S1 and S2, No murmurs Pulm: Clear to auscultation b/l. No wheezing, crackles, rhonchi Abd: Bowel Sounds present. Abdomen is soft; no tenderness in all quad. No guarding or distention. Ext: Right lower extremity with circumferential 1+ pitting edema. R-fifth digit circumferentially black with both hard planter and surrounding soft areas. No abnormality noted in left lower extremity Neuro: Slowed response IMAGING STUDIES: 12/09/18 chest x-ray: Interstitial lung disease most prominent at the bases, fibrosis versus edema. Squared atelectasis versus coarse fibrosis right base. 12/09/18 toe x-ray: Possible soft tissue emphysema. Diffuse swelling. No acute bony erosive change. 12/10/[address]: Diffuse soft tissue swelling of the forefoot, midfoot and ankle. No abscess is seen. One bubble of soft tissue gas is seen along the medial aspect of the proximal phalanx of the 5th digit. No other soft tissue emphysema is seen. No erosive change is seen to suggest osteomyelitis by CT criteria. Vascular calcification is noted. 12/10/18 vascular ultrasound: No evidence of deep venous thrombosis of the right lower extremity femoral popliteal venous system. ASSESSMENT AND PLAN: 1. Right fifth toe necrosis -Per Dr. Hart's discussion with family, they would like to have the right fifth toe mummified at this time instead of surgery -CT angiogram ordered showing small bubble of soft tissue gas in medial aspect of proximal 5th digit.; no erosive change to suggest osteomyelitis - RLE ultrasound negative for DVT -IV Vanco and Zosyn will be switched to PO doxy -Pt recommended to cont rehab vs home with / care -Pending PT clearance as it was reported pt has unsteady gait with walker use 2. Hypertension -will d/c HCTZ at this time as creatinine elevates -start amlodipine 5mg QD with holding parameters 3.Rheumatoid Arthritis -Patient is on methotrexate at home, continue to hold -Continue folic acid supplements. 4. COPD -Continue home DuoNeb, albuterol 5. Dementia Continue home donepezil, Depakote 6.BPH -Continue flomax DVT prophylaxis: Teds and sequentials / Heparin DISPOSITION: Awaiting right 5th toe mummified per family wish. Vanco and Zosyn switch to doxy. Pending PT clearance. VS,Fishbone, I+O VS, Fishbone, I+O Laboratory Tests 12/12/18 06:11 Red Blood Count 3.63 L, Mean Corpuscular Volume 97.2 H, Mean Corpuscular Hemoglobin 32.5, Mean Corpuscular Hemoglobin Concent 33.4, Red Cell Distribution Width 15.7 H, Calcium Level 8.7 L Vital Signs Date Time Temp Pulse Resp B/P (MAP) Pulse Ox O2 Delivery O2 Flow Rate FiO2 12/12/18 06:00 98.1 64 20 136/59 (84) 94 12/10/18 08:15 Room Air I&O- Last 24 Hours up to 6 AM 12/12/18 06:00 Intake Total 2400 ml Output Total 400 ml Balance 2000 ml GME ATTESTATION GME ATTESTATION My faculty preceptor for this patient encounter was physically present during the encounter and was fully available. All aspects of the patient interview, examination, medical decision making process, and medical care plan development were reviewed and approved by the faculty preceptor. The faculty preceptor is aware and concurs with the plan as stated in the body of this note and will attest to such by his/her cosignature. ATTENDING NOTE I, Oumar Acuña, have independently examined this patient and performed my own physical exam, as well as reviewed the documentation and edited where necessary. I have discussed in detail with the resident / student the findings and plan of treatment as documented by the resident / student and edited their note. I agree with their findings and treatment plan and have edited their documentation. I will continue to follow the patient during this hospital stay. KIRBY FULTON DO Dec 12, 2018 12:56 OUMAR ACUÑA MD Dec 12, 2018 14:35
[2018-12-12] MEDS: DOXYCYCLINE HYCLATE 100 MG TAB PO SCH ×2 (13:03→21:25)
[2018-12-12 14:00] VITALS: BP 140/65
[2018-12-12] MEDS ORDERED: IPRATROPIUM 0.5MG/ALBUTEROL 2.5MG INH SOL UD 3ML (DUONEB)(J7620) INH PRN (15:45)
[2018-12-12] MEDS: DONEPEZIL 5 MG TAB PO SCH (21:25)
[2018-12-12] MEDS: DIVALPROEX 500MG *ER* TAB PO SCH (21:25)
[2018-12-12] MEDS: FOLIC ACID 1 MG TAB PO SCH (21:25)
[2018-12-12] MEDS: TAMSULOSIN 0.4 MG CAP PO SCH (21:25)
[2018-12-12 22:00] VITALS: BP 146/62
[2018-12-13 06:00] VITALS: BP 158/67
[2018-12-13 06:32] LABS: HEMATOCRIT 34.1 % (42.0-52.0); HEMOGLOBIN 11.3 g/dl (13.5-17.5); MEAN CORPUSCULAR HEMOGLOBIN 31.7 pg (27.0-33.0); MEAN CORPUSCULAR HGB CONC 33.1 g/dl (32.0-36.5); MEAN CORPUSCULAR VOLUME 95.5 fl (80.0-96.0); PLATELET COUNT, AUTOMATED 371 10^3/uL (150-450); RED BLOOD COUNT 3.57 10^6/uL (4.30-6.10); WHITE BLOOD COUNT 11.6 10^3/uL (4.0-10.0)
[2018-12-13] MEDS: HEPARIN SOD (PORCINE) 5000 UNITS/ML VIAL SC SCH ×3 (06:32→20:12)
[2018-12-13 06:55] LABS: C REACTIVE PROTEIN QUANTITATIV 4.17 MG/DL (0.00-0.30); CALCIUM LEVEL 8.8 MG/DL (8.8-10.2); CREATININE FOR GFR 1.42 MG/DL (0.70-1.30); GLOMERULAR FILTRATION RATE 50.6 (>35); POTASSIUM SERUM 3.8 MEQ/L (3.5-5.1)
[2018-12-13] MEDS ORDERED: NS 1,000 ML IV SCH (08:00)
[2018-12-13] MEDS: CYANOCOBALAMIN 500 MCG TAB PO SCH (08:13)
[2018-12-13] MEDS: DOXYCYCLINE HYCLATE 100 MG TAB PO SCH ×2 (08:13→20:11)
[2018-12-13] MEDS: amLODIPine 5 MG TAB PO SCH (08:17)
[2018-12-13 14:00] VITALS: BP 134/69
[2018-12-13] MEDS: FOLIC ACID 1 MG TAB PO SCH (20:11)
[2018-12-13] MEDS: DONEPEZIL 5 MG TAB PO SCH (20:11)
[2018-12-13] MEDS: DIVALPROEX 500MG *ER* TAB PO SCH (20:11)
[2018-12-13] MEDS: TAMSULOSIN 0.4 MG CAP PO SCH (20:11)
[2018-12-13 22:00] VITALS: BP 136/69
[2018-12-14] MEDS: HEPARIN SOD (PORCINE) 5000 UNITS/ML VIAL SC SCH ×3 (05:36→20:44)
[2018-12-14 06:00] VITALS: BP 129/81
[2018-12-14 06:50] LABS: HEMATOCRIT 35.6 % (42.0-52.0); HEMOGLOBIN 11.9 g/dl (13.5-17.5); MEAN CORPUSCULAR HEMOGLOBIN 32.9 pg (27.0-33.0); MEAN CORPUSCULAR HGB CONC 33.4 g/dl (32.0-36.5); MEAN CORPUSCULAR VOLUME 98.3 fl (80.0-96.0); PLATELET COUNT, AUTOMATED 369 10^3/uL (150-450); RED BLOOD COUNT 3.62 10^6/uL (4.30-6.10); WHITE BLOOD COUNT 11.3 10^3/uL (4.0-10.0)
[2018-12-14 07:12] LABS: BLOOD UREA NITROGEN 32 MG/DL (7-18); C REACTIVE PROTEIN QUANTITATIV 3.39 MG/DL (0.00-0.30); CALCIUM LEVEL 8.5 MG/DL (8.8-10.2); CARBON DIOXIDE LEVEL 25 MEQ/L (21-32); CHLORIDE LEVEL 106 MEQ/L (98-107); CREATININE FOR GFR 1.17 MG/DL (0.70-1.30); GLOMERULAR FILTRATION RATE > 60.0 (>35); GLUCOSE, FASTING 82 MG/DL (70-100); POTASSIUM SERUM 3.9 MEQ/L (3.5-5.1); SODIUM LEVEL 139 MEQ/L (136-145)
[2018-12-14] MEDS: CYANOCOBALAMIN 500 MCG TAB PO SCH (08:42)
[2018-12-14] MEDS: DOXYCYCLINE HYCLATE 100 MG TAB PO SCH ×2 (08:42→20:43)
[2018-12-14] MEDS: amLODIPine 5 MG TAB PO SCH (08:43)
[2018-12-14 14:00] VITALS: BP 131/73
[2018-12-14] MEDS: DIVALPROEX 500MG *ER* TAB PO SCH (20:43)
[2018-12-14] MEDS: DONEPEZIL 5 MG TAB PO SCH (20:43)
[2018-12-14] MEDS: FOLIC ACID 1 MG TAB PO SCH (20:43)
[2018-12-14] MEDS: TAMSULOSIN 0.4 MG CAP PO SCH (20:43)
[2018-12-14 22:00] VITALS: BP 133/83
[2018-12-15] MEDS: HEPARIN SOD (PORCINE) 5000 UNITS/ML VIAL SC SCH ×3 (05:48→22:16)
[2018-12-15 05:58] VITALS: BP 151/79
[2018-12-15 06:17] LABS: HEMATOCRIT 33.8 % (42.0-52.0); HEMOGLOBIN 11.3 g/dl (13.5-17.5); MEAN CORPUSCULAR HEMOGLOBIN 31.8 pg (27.0-33.0); MEAN CORPUSCULAR HGB CONC 33.4 g/dl (32.0-36.5); MEAN CORPUSCULAR VOLUME 95.2 fl (80.0-96.0); PLATELET COUNT, AUTOMATED 401 10^3/uL (150-450); RED BLOOD COUNT 3.55 10^6/uL (4.30-6.10); WHITE BLOOD COUNT 12.3 10^3/uL (4.0-10.0)
[2018-12-15 06:39] LABS: BLOOD UREA NITROGEN 30 MG/DL (7-18); C REACTIVE PROTEIN QUANTITATIV 3.13 MG/DL (0.00-0.30); CALCIUM LEVEL 8.6 MG/DL (8.8-10.2); CARBON DIOXIDE LEVEL 25 MEQ/L (21-32); CHLORIDE LEVEL 106 MEQ/L (98-107); CREATININE FOR GFR 1.14 MG/DL (0.70-1.30); GLOMERULAR FILTRATION RATE > 60.0 (>35); GLUCOSE, FASTING 82 MG/DL (70-100); POTASSIUM SERUM 3.9 MEQ/L (3.5-5.1); SODIUM LEVEL 139 MEQ/L (136-145)
[2018-12-15 09:09] VITALS: BP 149/77
[2018-12-15] MEDS: CYANOCOBALAMIN 500 MCG TAB PO SCH (09:11)
[2018-12-15] MEDS: amLODIPine 5 MG TAB PO SCH (09:11)
[2018-12-15] MEDS: DOXYCYCLINE HYCLATE 100 MG TAB PO SCH ×2 (09:11→20:14)
[2018-12-15 14:00] VITALS: BP 136/60
[2018-12-15] MEDS: FOLIC ACID 1 MG TAB PO SCH (20:14)
[2018-12-15] MEDS: DONEPEZIL 5 MG TAB PO SCH (20:14)
[2018-12-15] MEDS: TAMSULOSIN 0.4 MG CAP PO SCH (20:15)
[2018-12-15] MEDS: DIVALPROEX 500MG *ER* TAB PO SCH (20:15)
[2018-12-15 22:00] VITALS: BP 140/68
[2018-12-16] MEDS: HEPARIN SOD (PORCINE) 5000 UNITS/ML VIAL SC SCH ×3 (05:21→22:03)
[2018-12-16 06:00] VITALS: BP 138/71
[2018-12-16 08:08] LABS: HEMATOCRIT 33.5 % (42.0-52.0); HEMOGLOBIN 11.1 g/dl (13.5-17.5); MEAN CORPUSCULAR HEMOGLOBIN 31.7 pg (27.0-33.0); MEAN CORPUSCULAR HGB CONC 33.1 g/dl (32.0-36.5); MEAN CORPUSCULAR VOLUME 95.7 fl (80.0-96.0); PLATELET COUNT, AUTOMATED 394 10^3/uL (150-450); WHITE BLOOD COUNT 12.2 10^3/uL (4.0-10.0)
[2018-12-16 08:34] LABS: C REACTIVE PROTEIN QUANTITATIV 4.03 MG/DL (0.00-0.30); CREATININE FOR GFR 1.29 MG/DL (0.70-1.30); GLOMERULAR FILTRATION RATE 56.5 (>35); POTASSIUM SERUM 4.1 MEQ/L (3.5-5.1)
[2018-12-16] MEDS: DOXYCYCLINE HYCLATE 100 MG TAB PO SCH ×2 (08:41→22:04)
[2018-12-16] MEDS: amLODIPine 5 MG TAB PO SCH (08:42)
[2018-12-16] MEDS: CYANOCOBALAMIN 500 MCG TAB PO SCH (08:42)
[2018-12-16 14:00] VITALS: BP 135/73
[2018-12-16 22:00] VITALS: BP 152/69
[2018-12-16] MEDS: DONEPEZIL 5 MG TAB PO SCH (22:03)
[2018-12-16] MEDS: DIVALPROEX 500MG *ER* TAB PO SCH (22:04)
[2018-12-16] MEDS: FOLIC ACID 1 MG TAB PO SCH (22:04)
[2018-12-16] MEDS: TAMSULOSIN 0.4 MG CAP PO SCH (22:04)
[2018-12-17 06:00] VITALS: BP_SYST 144; BP_SYST 168; BP_DIAS 70; BP_DIAS 82
[2018-12-17] MEDS: HEPARIN SOD (PORCINE) 5000 UNITS/ML VIAL SC SCH ×3 (06:24→22:28)
[2018-12-17] MEDS: CYANOCOBALAMIN 500 MCG TAB PO SCH (08:43)
[2018-12-17] MEDS: DOXYCYCLINE HYCLATE 100 MG TAB PO SCH ×2 (08:44→22:27)
[2018-12-17] MEDS: amLODIPine 5 MG TAB PO SCH (08:44)
[2018-12-17 14:00] VITALS: BP 140/66
[2018-12-17 22:00] VITALS: BP 150/82
[2018-12-17] MEDS: DONEPEZIL 5 MG TAB PO SCH ×2 (22:24→22:26)
[2018-12-17] MEDS: DIVALPROEX 500MG *ER* TAB PO SCH (22:26)
[2018-12-17] MEDS: FOLIC ACID 1 MG TAB PO SCH (22:27)
[2018-12-17] MEDS: TAMSULOSIN 0.4 MG CAP PO SCH (22:27)
[2018-12-18 06:00] VITALS: BP 140/78
[2018-12-18] MEDS: HEPARIN SOD (PORCINE) 5000 UNITS/ML VIAL SC SCH ×3 (06:06→23:31)
[2018-12-18] MEDS: CYANOCOBALAMIN 500 MCG TAB PO SCH (08:16)
[2018-12-18] MEDS: DOXYCYCLINE HYCLATE 100 MG TAB PO SCH (08:18)
[2018-12-18] MEDS: amLODIPine 5 MG TAB PO SCH (08:18)
[2018-12-18 14:00] VITALS: BP 160/70
--- NOTE | 2018-12-18 14:52 | IPNPDOC ---
Text Note Date of Service The patient was seen on 12/18/18. NOTE SUBJECTIVE: Pt reported no complaints including any fever, chills, nausea, vomiting. Pt's would like to have updates on his right fifth toe and also there seems to have some increased productive cough and sputum for the past 2-3 days but no fever was noted; pt reported baseline sensation of feeling cold. It was noted that pt had some occasional difficulty swallowing but still have good appetite. No other symptoms were noted and pt has been walking with PT. OBJECTIVE: PHYSICAL EXAM: General: No acute distress, laying comfortably in bed. HEENT: Normocephalic, atraumatic. No scleral icterus. Moist mucous membranes. Neck: supple Cardiac: RRR, Normal S1 and S2, No murmurs Pulm: Clear to auscultation b/l. Bilateral rales noted worse on right which was reported to be baseline by . No accessory muscle use noted. Cough noted Ext: Right lower extremity with circumferential minimal pitting edema. R-fifth digit circumferentially black with both hard planter and surrounding soft areas; part of tissue in the inferior portion of right fifth toe missing; no pus/drainage noted; no erythema noted around the toe. No abnormality noted in left lower extremity Neuro: Slowed response IMAGING STUDIES: 12/09/18 chest x-ray: Interstitial lung disease most prominent at the bases, fibrosis versus edema. Squared atelectasis versus coarse fibrosis right base. 12/09/18 toe x-ray: Possible soft tissue emphysema. Diffuse swelling. No acute bony erosive change. 12/10/[address]: Diffuse soft tissue swelling of the forefoot, midfoot and ankle. No abscess is seen. One bubble of soft tissue gas is seen along the medial aspect of the proximal phalanx of the 5th digit. No other soft tissue emphysema is seen. No erosive change is seen to suggest osteomyelitis by CT criteria. Vascular calcification is noted. 12/10/18 vascular ultrasound: No evidence of deep venous thrombosis of the right lower extremity femoral popliteal venous system. ASSESSMENT AND PLAN: 1. Right fifth toe necrosis -Per Dr. Hart's discussion with family, they would like to have the right fifth toe mummified at this time instead of surgery -CT angiogram ordered showing small bubble of soft tissue gas in medial aspect of proximal 5th digit.; no erosive change to suggest osteomyelitis -RLE ultrasound negative for DVT -D/c doxycycline at this time as per discussion with Dr. Hart it is thought to be 2/2 poor circulation -Pt recommended to cont rehab vs home with 21/10 care -Pending PT clearance as it was reported pt has unsteady gait with walker use 2. Hypertension -Cont amlodipine 5mg QD with holding parameters 3.Rheumatoid Arthritis -Patient is on methotrexate at home, continue to hold -Continue folic acid supplements. 4. COPD -Continue home DuoNeb, albuterol -It was reported that pt had some mild increased SOB and sputum production compared to baseline. At this time our team decided no further workup is needed. Cont to monitor the pt; leukocytosis at baseline since admission 5. Dementia Continue home donepezil, Depakote 6.BPH -Continue flomax 7. Difficulty swallowing -it was reported that pt has some difficulty swallowing; speech therapy swallow study ordered 8. Weight loss -may be 2/2 decreased oral intake vs other underlying etiology such as COPD vs malabsorption - reported pt seems to have weight loss since admission. 58kg compared to 62kg since admission. -no diarrhea noted. Diet consult recommends increased protein needs -Cont to f/u weight. Discussed with pt's to encourage PO intake. Past colonoscopy no abnormality and no smoking hx. Recommends workup outpatient DVT prophylaxis: Teds and sequentials / Heparin DISPOSITION: Awaiting right 5th toe mummified per family wish. D/C doxycycline; swallow eval and weigh daily I saw and evaluated the patient. I agree with the findings and plan of care as documented in the above note VS,Fishbone, I+O VS, Fishbone, I+O Vital Signs Date Time Temp Pulse Resp B/P (MAP) Pulse Ox O2 Delivery O2 Flow Rate FiO2 12/18/18 08:18 77 115/59 12/18/18 06:00 98.4 18 92 I&O- Last 24 Hours up to 6 AM 12/18/18 06:00 Intake Total 930 ml Output Total 0 ml Balance 930 ml KIRBY FULTON DO Dec 18, 2018 14:52 BRIDGETT SCRUGGS MD Dec 19, 2018 13:03
[2018-12-18] MEDS: DIVALPROEX 500MG *ER* TAB PO SCH (20:27)
[2018-12-18] MEDS: FOLIC ACID 1 MG TAB PO SCH (20:28)
[2018-12-18] MEDS: TAMSULOSIN 0.4 MG CAP PO SCH (20:28)
[2018-12-18 22:00] VITALS: BP 154/70
[2018-12-19 06:00] VITALS: BP 145/68
[2018-12-19] MEDS: HEPARIN SOD (PORCINE) 5000 UNITS/ML VIAL SC SCH ×3 (06:32→22:33)
[2018-12-19] MEDS: CYANOCOBALAMIN 500 MCG TAB PO SCH (09:27)
[2018-12-19] MEDS: amLODIPine 5 MG TAB PO SCH (09:29)
[2018-12-19 14:00] VITALS: BP 150/68
[2018-12-19 20:00] VITALS: BP 126/60
[2018-12-19] MEDS: NYSTATIN 100,000 UNITS/GM TOPICAL PWD 15 GM TOP SCH (20:00)
[2018-12-19 22:00] VITALS: BP 126/60
[2018-12-19] MEDS: FOLIC ACID 1 MG TAB PO SCH (22:32)
[2018-12-19] MEDS: DONEPEZIL 5 MG TAB PO SCH (22:32)
[2018-12-19] MEDS: TAMSULOSIN 0.4 MG CAP PO SCH (22:33)
[2018-12-19] MEDS: DIVALPROEX 500MG *ER* TAB PO SCH (22:33)
[2018-12-20] MEDS: HEPARIN SOD (PORCINE) 5000 UNITS/ML VIAL SC SCH ×3 (05:47→21:03)
[2018-12-20 06:00] VITALS: BP 155/63
[2018-12-20] MEDS: CYANOCOBALAMIN 500 MCG TAB PO SCH (08:19)
[2018-12-20] MEDS: NYSTATIN 100,000 UNITS/GM TOPICAL PWD 15 GM TOP SCH (08:20)
[2018-12-20] MEDS: amLODIPine 5 MG TAB PO SCH (08:21)
[2018-12-20 14:00] VITALS: BP 124/65
[2018-12-20] MEDS: DONEPEZIL 5 MG TAB PO SCH (20:29)
[2018-12-20] MEDS: TAMSULOSIN 0.4 MG CAP PO SCH (20:29)
[2018-12-20] MEDS: FOLIC ACID 1 MG TAB PO SCH (20:30)
[2018-12-20] MEDS: DIVALPROEX 500MG *ER* TAB PO SCH (20:30)
[2018-12-20 22:00] VITALS: BP 143/65
[2018-12-21] MEDS: HEPARIN SOD (PORCINE) 5000 UNITS/ML VIAL SC SCH ×3 (05:57→21:23)
[2018-12-21 06:00] VITALS: BP 176/70
[2018-12-21] MEDS: amLODIPine 5 MG TAB PO SCH (09:09)
[2018-12-21] MEDS: NYSTATIN 100,000 UNITS/GM TOPICAL PWD 15 GM TOP SCH (09:09)
[2018-12-21] MEDS: CYANOCOBALAMIN 500 MCG TAB PO SCH (09:09)
[2018-12-21] MEDS ORDERED: VARIBAR NECTAR 40% w/v 240ML SUSP BTL As Ordered ONE (11:05)
[2018-12-21] MEDS ORDERED: E-Z-PAQUE 96% w/w SUSP 176GM BTL As Ordered ONE (11:05)
[2018-12-21] MEDS ORDERED: VARIBAR PUDDING 40% w/v 230ML TUBE As Ordered ONE (11:05)
[2018-12-21] MEDS ORDERED: BARIUM SULFATE 700 MG TABLET (E-Z-DISK) As Ordered ONE (11:06)
[2018-12-21 14:00] VITALS: BP 155/66
[2018-12-21] MEDS: DONEPEZIL 5 MG TAB PO SCH (21:22)
[2018-12-21] MEDS: DIVALPROEX 500MG *ER* TAB PO SCH (21:22)
[2018-12-21] MEDS: TAMSULOSIN 0.4 MG CAP PO SCH (21:23)
[2018-12-21] MEDS: FOLIC ACID 1 MG TAB PO SCH (21:23)
[2018-12-21 22:00] VITALS: BP 144/69
[2018-12-22 06:00] VITALS: BP 140/66
[2018-12-22] MEDS: MIRALAX *UNIT DOSE* 17GM PACKET PO PRN ×2 (06:35→13:54)
[2018-12-22] MEDS: HEPARIN SOD (PORCINE) 5000 UNITS/ML VIAL SC SCH ×3 (06:35→21:26)
[2018-12-22] MEDS: amLODIPine 5 MG TAB PO SCH (09:36)
[2018-12-22] MEDS: CYANOCOBALAMIN 500 MCG TAB PO SCH (09:36)
[2018-12-22] MEDS: NYSTATIN 100,000 UNITS/GM TOPICAL PWD 15 GM TOP SCH (09:37)
--- NOTE | 2018-12-22 09:52 | REP ---
COOKIE SWALLOW The procedure was performed under the direct supervision of Dr. Duarte. The procedure was performed with Salome Ross from speech pathology present. 5 ml aliquots of nectar, pudding, thin, honey and soft solid consistency barium was administered. With nectar and thin consistency barium there is laryngeal penetration. The detailed report of this examination will be provided by speech pathology. 2.3 minutes of fluoroscopy time was utilized for this procedure. Electronically Signed by NARA Blake 12/21/2018 03:55 P Electronically Signed by Jameson Duarte MD 12/22/2018 09:43 A
[2018-12-22] MEDS: TAMSULOSIN 0.4 MG CAP PO SCH (21:26)
[2018-12-22] MEDS: DONEPEZIL 5 MG TAB PO SCH (21:26)
[2018-12-22] MEDS: FOLIC ACID 1 MG TAB PO SCH (21:26)
[2018-12-22] MEDS: DIVALPROEX 500MG *ER* TAB PO SCH (21:26)
[2018-12-22 22:00] VITALS: BP 116/58
[2018-12-23] MEDS: HEPARIN SOD (PORCINE) 5000 UNITS/ML VIAL SC SCH (05:22)
[2018-12-23 06:00] VITALS: BP 127/66
[2018-12-23] MEDS: CYANOCOBALAMIN 500 MCG TAB PO SCH (09:12)
[2018-12-23 09:13] VITALS: BP 127/66
[2018-12-23] MEDS: NYSTATIN 100,000 UNITS/GM TOPICAL PWD 15 GM TOP SCH (09:13)
[2018-12-23] MEDS: amLODIPine 5 MG TAB PO SCH (09:13)
--- NOTE | 2018-12-23 11:05 | DS.PDOC ---
Discharge Summary General Date of Admission Dec 10, 2018 at 03:07 Date of Discharge 12/23/18 Discharge Summary Chief Complaint The patient is a 83-year-old male admitted with a reason for visit of Weakness. Final diagnosis Right fifth toe necrosis Rheumatoid Arthritis History of present illness and Hospital course Pt is a 83 yo male with PMH of RA, COPD, dementia, and HTN presented to [facility] due to 3 weeks of generalized weakness and right fifth toe wound for a month. 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 It was noted that it first appeared as tissue irritation/erythema, and it evolved into an eschar/gangrene; pt reported intermittent pain in the toe. For her to pain as Per Dr. Hart's discussion with family, they would like to have the right fifth toe mummified at this time instead of surgery. CT angiogram ordered showing small bubble of soft tissue gas in medial aspect of proximal 5th digit.; no erosive change to suggest osteomyelitis .RLE ultrasound negative for DVT. D/c doxycycline at this time as per discussion with Dr. Hart it is thought to be 2/2 poor circulation . Pt recommended to cont rehab vs home with 24/ care. The patient will be discharged today. He also had Difficulty swallowing Speech therapy saw and cleared the patient. For the patient's Weight loss , may be 2/2 decreased oral intake vs other underlying etiology such as COPD vs malabsorption. reported pt seems to have weight loss since admission. 58kg compared to 62kg since admission. no diarrhea noted. Diet consult recommends increased protein needs. Discussed with pt's to encourage PO intake. Past colonoscopy no abnormality and no smoking hx. Recommends workup outpatient. PHYSICAL EXAM: General: No acute distress, laying comfortably in bed. HEENT: Normocephalic, atraumatic. No scleral icterus. Moist mucous membranes. Neck: supple Cardiac: RRR, Normal S1 and S2, No murmurs Pulm: Clear to auscultation b/l. Bilateral rales noted worse on right which was reported to be baseline by . No accessory muscle use noted. Cough noted Ext: Right lower extremity with circumferential minimal pitting edema. R-fifth digit circumferentially black with both hard planter and surrounding soft areas; part of tissue in the inferior portion of right fifth toe missing; no pus/drainage noted; no erythema noted around the toe. No abnormality noted in left lower extremity Neuro: Slowed response IMAGING STUDIES: 12/09/18 chest x-ray: Interstitial lung disease most prominent at the bases, fibrosis versus edema. Squared atelectasis versus coarse fibrosis right base. 12/09/18 toe x-ray: Possible soft tissue emphysema. Diffuse swelling. No acute bony erosive change. 12/10/[address]: Diffuse soft tissue swelling of the forefoot, midfoot and ankle. No abscess is seen. One bubble of soft tissue gas is seen along the medial aspect of the proximal phalanx of the 5th digit. No other soft tissue emphysema is seen. No erosive change is seen to suggest osteomyelitis by CT criteria. Vascular calcification is noted. 12/10/18 vascular ultrasound: No evidence of deep venous thrombosis of the right lower extremity femoral popliteal venous system. Medications. As per discharge reconciliation medication list Activity as tolerated Diet. 2 g sodium diet Follow-up appointments. PCP in 1 week Condition on discharge. Patient is medically optimized for discharge Discharge disposition: Subacute rehabilitation Total time spent on this discharge including coordination of care, review of chart documentation and extubation contact is around 35 minutes Vital Signs/I&Os Vital Signs Date Time Temp Pulse Resp B/P (MAP) Pulse Ox O2 Delivery O2 Flow Rate FiO2 12/23/18 09:13 77 127/66 12/23/18 06:00 98.0 18 98 I&O- Last 24 Hours up to 6 AM 12/23/18 06:00 Intake Total 760 ml Balance 760 ml Discharge Medications Scheduled Cholecalciferol (Vitamin D3) (Vitamin D3) 1,000 Unit Tablet, 1,000 UNIT PO QHS, (Reported) Cyanocobalamin (Vitamin B-12) (Vitamin B-12) 1,000 Mcg Tab.subl, 1,000 MCG SL QHS, (Reported) Divalproex Sodium (Divalproex Sodium ER) 500 Mg Tab.er.24h, 500 MG PO QHS, (Reported) Donepezil HCl (Donepezil HCl) 10 Mg Tablet, 10 MG PO QHS, (Reported) Folic Acid (Folic Acid) 1 Mg Tablet, 1 MG PO QHS, (Reported) Tamsulosin HCl (Flomax) 0.4 Mg Capsule, 0.8 MG PO QHS, (Reported) Allergies Coded Allergies: No Known Allergies (Unverified , 12/09/18) PERLA ROBERSON MD Dec 23, 2018 11:05
== END 2018-12-23 12:02 | DRG 197 ==
LOC: M ED 19:23 → M ED INP 12-10 03:07 → M MSPAV 12-10 12:42
PROVIDERS: ADMIT Internal Medicine; ATTEND Internal Medicine
DX: I96 Gangrene, not elsewhere classified (principal); J44.9 Chronic obstructive pulmonary disease, unspecified; F03.90 Unspecified dementia, unspecified severity, without behavioral disturbance, psychotic disturbance, mood disturbance, and anxiety; M06.9 Rheumatoid arthritis, unspecified; L03.031 Cellulitis of right toe; I10 Essential (primary) hypertension; Z79.899 Other long term (current) drug therapy; N40.0 Benign prostatic hyperplasia without lower urinary tract symptoms

== ENCOUNTER 2019-02-12 00:44 | Inpatient (IN) | payer MEDICARE, MEDICAID ==
[2019-02-12] VITALS (15 sets, daily range): BP systolic 116–200; BP diastolic 58–83
[~2019-02-12] VITALS: Ht 165.1 cm; Wt 51.7 kg
[~2019-02-12 00:44] MED LIST: AUGM500T34 PO; B-12100011 SL; D31000TA PO; DEPA500T2 PO; DIVA500T9 PO; DONE10TA90 PO; FLOM0.4C39 PO; FOLI1TAB11 PO
--- NOTE | 2019-02-12 02:29 | HPEPDOC ---
[facility] Medical History & Physical Date of Admission Feb 12, 2019 Date of Service: Feb 12, 2019 Other Provider Kennedy Granger MD Attending Physician: NICHOLAS MEJÍA MD History and Physical TIME OF SERVICE: 2:43AM CHIEF COMPLAINT: Gangrene of the toes HISTORY OF PRESENT ILLNESS: This patient has dementia and is a poor historian. The majority of history is obtained from the Dr. Malagon [facility]. This is an 83-year-old male who was transferred from [facility] for management of right second and fifth toe dry gangrene. The patient was initially sent from his fdc for evaluation of a foot infection; he was afebrile and his vitals were within normal limits except for blood pressure 170/80. His WBC count was 9, hematocrit was 33, creatinine is 1.4 which is at baseline, and BUN is 27. X-ray of the foot was negative for signs of osteoarthritis or gas gangrene. Bilateral lower extremity ultrasounds were unremarkable. The patient received vancomycin & Unasyn and was evaluated by an Orthopedic surgeon who recommended transfer for evaluation a by Vascular surgeon. Currently the patient denies having any pain. REVIEW OF SYSTEMS: unable to obtain because the patient has dementia PAST MEDICAL/ SURGICAL HISTORY: COPD Dementia PVD Per Dr. Malagon the patient's family denied a history of hypertension SOCIAL HISTORY: The patient resides in a fdc FAMILY HISTORY: unable to obtain because the patient has dementia ALLERGIES: Please see below. HOME MEDICATIONS: Please see below. PHYSICAL EXAMINATION: VITAL SIGNS: Please see below. GENERAL APPEARANCE: Slim built, well-developed, does not appear toxic. HEENT: normocephalic, atraumatic, mucous members slightly dry CARDIOVASCULAR: Regular rate and rhythm, no murmurs, rubs or gallops. Dorsalis pedis pulses are palpable bilaterally LUNGS: clear to auscultation bilaterally on room air ABDOMEN: soft and nontender MUSCULOSKELETAL: . There is no redness or swelling of the lower legs. INTEGUMENT: The right foot is red and swollen. The second and fifth toes are black in color NEUROLOGICAL: Unable to evaluate cranial nerves because patient is not cooperative. His speech is not dysarthric PSYCHIATRIC: The patient is asleep but arousable with vocal stimuli. He is not cooperative with exam LABORATORY DATA: Pending ASSESSMENT: Mr. Gomez is an 83 old male with a past medical history of dementia, COPD, severe PVD and possibly hypertension. Will be admitted for evaluation of dry gangrene affecting the toes. PLAN: 1. Dry gangrene affecting the 2nd and 5th toes on the right foot Plan: Admit to PCU/telemetry/nothing by mouth/fluids/ continue vancomycin and Unasyn/follow-up with orthopedics and vascular surgery in the morning 2. Uncontrolled hypertension. Plan: IV labetalol when necessary 3. PVD Plan: Resume home meds 4. COPD Stable. Plan: Resume home meds DVT prophylaxis with SCDs. Disposition: Likely back to fdc after more than 2 midnight's stay/ will consult PFS Laboratory Data Labs 24H Vital Signs Date Time Temp Pulse Resp B/P (MAP) Pulse Ox O2 Delivery O2 Flow Rate FiO2 02/12/19 02:20 97.8 57 18 188/80 (116) 96 Room Air Laboratory Tests 02/12/19 03:01 Home Medications Scheduled Cholecalciferol (Vitamin D3) (Vitamin D3) 1,000 Unit Tablet, 1,000 UNIT PO QHS Cyanocobalamin (Vitamin B-12) (Vitamin B-12) 1,000 Mcg Tab.subl, 1,000 MCG SL QHS Divalproex Sodium (Divalproex Sodium ER) 500 Mg Tab.er.24h, 500 MG PO QHS Donepezil HCl (Donepezil HCl) 10 Mg Tablet, 10 MG PO QHS Saline Lock Flush (Normal Saline Flush) 3 Ml Syringe, 3 ML IV Q8H Tamsulosin HCl (Flomax) 0.4 Mg Capsule, 0.4 MG PO QHS Vancomycin HCl (Vancomycin HCl) 500 Mg Vial, 400 MG IV DAILY 1400 Scheduled PRN Bisacodyl (Bisacodyl) 10 Mg Supp.rect, 10 MG MT Q3DP PRN for CONSTIPATION IF NO BM BY DAY 3 AT 0600 Glucagon,Human Recombinant (Glucagon Emergency Kit) 1 Mg Vial, 1 MG IM ASDIRECTED PRN for LOW BLOOD SUGAR Magnesium Hydroxide (Milk of Magnesia) 400 Mg/5 Ml Oral.susp, 2,400 MG PO Q2D PRN for CONSTIPATION IF NO BOWEL MOVEMENT BY DAY 2 AT 2000 Sodium Phosphate,Assumption-Dibasic (Fleet Enema) 133 Ml Enema, 1 RYLIE MT Q4DP PRN for CONGESTION IF NO BM BY DAY 4 Allergies Coded Allergies: No Known Allergies (Unverified , 12/09/18) A-FIB/CHADSVASC A-FIB History Current/History of A-Fib/PAF?: No Current PO Anticoag Therapy: No NICHOLAS MEJÍA MD Feb 12, 2019 02:29
[2019-02-12] MEDS ORDERED: D5W/LR 1,000 ML IV SCH (02:30)
[2019-02-12] MEDS ORDERED: VANCOMYCIN HCL 750 MG, VIAL MATE ADAPTER 1 EACH in D5W 250 ML IV SCH (02:30)
[2019-02-12 03:06] LABS: HEMATOCRIT 31.5 % (42.0-52.0); HEMOGLOBIN 10.3 g/dl (13.5-17.5); MEAN CORPUSCULAR HEMOGLOBIN 31.6 pg (27.0-33.0); MEAN CORPUSCULAR HGB CONC 32.7 g/dl (32.0-36.5); MEAN CORPUSCULAR VOLUME 96.6 fl (80.0-96.0); PLATELET COUNT, AUTOMATED 302 10^3/uL (150-450); RED BLOOD COUNT 3.26 10^6/uL (4.30-6.10); WHITE BLOOD COUNT 9.4 10^3/uL (4.0-10.0)
[2019-02-12 03:17] LABS: INR 1.09; PROTHROMBIN TIME 13.8 SECONDS (11.8-14.0)
[2019-02-12] MEDS ORDERED: LABETALOL 100MG/20ML VIAL IV PRN (03:45)
[2019-02-12] MEDS ORDERED: VANC50SOL IV (03:51)
[2019-02-12] MEDS ORDERED: FLEEENE12 PR (03:51)
[2019-02-12] MEDS ORDERED: BISA10SU20 PR (03:51)
[2019-02-12] MEDS ORDERED: GLUC1KIT IM (03:51)
[2019-02-12] MEDS ORDERED: MOM30SS2 PO (03:51)
[2019-02-12] MEDS ORDERED: SLF3ML IV (03:54)
[2019-02-12 04:03] LABS: ALBUMIN 2.3 GM/DL (3.2-5.2); BILIRUBIN,TOTAL 0.2 MG/DL (0.2-1.0); CALCIUM LEVEL 8.4 MG/DL (8.8-10.2); CREATININE FOR GFR 1.34 MG/DL (0.70-1.30); GLOMERULAR FILTRATION RATE 54.1 (>35); POTASSIUM SERUM 3.9 MEQ/L (3.5-5.1)
[2019-02-12] MEDS: AMPICILLIN SOD/SULBACTAM SOD 1.5 GM in D5W MINI-BAG PLUS 50 ML IV SCH ×4 (04:57→22:35)
[2019-02-12 05:18] LABS: VANCOMYCIN RANDOM 5.9 UG/ML
[2019-02-12] MEDS: VANCOMYCIN HCL 1,000 MG, VIAL MATE ADAPTER 1 EACH in D5W 250 ML IV SCH (06:35)
--- NOTE | 2019-02-12 06:45 | PHACANCOPD ---
PHARMACY VANCOMYCIN DOSING Pt Demographics Demographics Patient Age:83 , Weight:57.500 , Gender: male Adjusted Body Weight Date: 02/12/19, Adjusted Body Weight: [55.48] Kg(ACTUAL) Vancomycin Vancomycin indication: GANGRENE TOES Vancomycin Target Ranges: 15-20 mcg/ml Vancomycin Load Y/N: No Load Dose Date Time Vancomycin Load Dose: Date: Time: Vancomycin Dose Date: 02/12/19. Current Vancomycin Dose: [1GM Q18H] Intermittent Dosing?: No Labs Micro Microbiology 02/12/19 Blood Culture, Received Pending Creatinine Clearance Date:02/12/19. Creatinine Clearance: [32.2].CALCULATED Assessment and Plan Maintaining Current Dose?: Yes Reason for dose change: No Dose Change Pharmacist Note Pharmacist Note Date: 02/12/19. Pharmacist note: [id number] Direct admission from [facility] w/gangrene toes. SCR=1.34,CALCULATED CRCL=32.2,NKDA,TO RECEIVE Ampicillin Sulbactam 1.5GM [id number] and Pharmacy dosed Vancomycin.Had received Vancomycin at [facility] so random level was ordered (reported as 5.9@05:30),Will begin Vancomycin 1 gram IV [id number]@0600. Next level is scheduled for 02/13@1700-will continue to follow labs JOHN [facility]ARC[facility] Feb 12, 2019 06:45
--- NOTE | 2019-02-12 08:56 | CR.PDOC ---
General Date of Consultation: Feb 12, [address] Jolly. 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 The [facility] was [facility] for [facility] of a foot infection; he was afebrile and his vitals were within normal limits except for blood pressure 170/80. His WBC count was 9, hematocrit was 33, creatinine is 1.4 GFR 48. X-ray of the foot was reportedly negative for signs of osteoarthritis or gas gangrene. The patient received vancomycin & Unasyn and was evaluated by an Orthopedic surgeon who recommended transfer for evaluation a by Vascular surgeon. Vascular Surgery is consulted. It is not clear the last time the Pt was ambulatory but appears to possibly have contractures in LEs. The pt is unable to provide history and there is currently no family available. PMHx: COPD Dementia PVD Elevated BP incontinence SOCHX: Resides in longterm facility Advanced directives: Full code FAMHX: The pt is unable to provide additional history ROS: The pt is unable to provide additional history. PE: GEN: 83yoM. Thin appearing. No acute distress. Alert but confused. HEENT: Normocephalic, atraumatic. Moist mucous membranes. CHEST: Regular rate and rhythm, +S1, +S2 LUNGS: Clear to auscultation bilaterally. No accessory muscle use. ABD: Flat, soft, non-tender, non-distended. EXT: The Rt foot noted to have edema and erythema extending to the distal pretib area. There is dark discoloration quarter sized on heels bilaterally. There is a scabbed area on Rt second toe, no drainage. Rt fifth toe with gangrene. Monophasic DP/PT pulses are obtained with doppler bilaterally. NEURO: No focal deficits appreciated, he is moving both UEs and LEs but appears to possibly have contractures of LEs B/L. BLE arterial US pending. A&P: 1. PAD with Rt foot cellulitis and fifth toe gangrene. Little history is able to be obtained, and it is not clear the last time the pt was ambulatory. Appears to have contractures of LEs. Limited cooperation with exam at this time. Monophasic pulses BL. The pt is afebrile. WBC 9.4. Scr 1.34, GFR 54. IV antibiotics as per Medicine Svc. Podiatry consult pending for foot wound. Heel discoloration likely related to pressure, avoid pressure on heels. Chart mentions Arterial US however no records are available for review at this time, therefore will begin with BL LE Arterial US and provide further recommendations pending results. The pt appears to be a poor candidate for arteriogram as he is poorly following commands and it is not clear he will comply with lying flat. 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 Since these contractures would indicate the pt is non ambulatory, it is unlikely he would benefit from any heroic revascularization. Will continue to follow with you. Vital Signs/I&O Vital Signs Date Time Temp Pulse Resp B/P (MAP) Pulse Ox O2 Delivery O2 Flow Rate FiO2 02/12/19 06:00 47 149/69 (95) 96 Room Air 02/12/19 04:00 97.8 16 I&O- Last 24 Hours up to 6 AM 02/12/19 05:59 Intake Total 0 ml Output Total 30 ml Balance -30 ml Laboratory Data Labs 24H Laboratory Tests 2 02/12/19 03:01: Nucleated Red Blood Cells % (auto) 0.0, Prothrombin Time 13.8, Prothromb Time International Ratio 1.09, Anion Gap 8, Glomerular Filtration Rate 54.1, Calcium Level 8.4L, Total Bilirubin 0.2, Aspartate Amino Transf (AST/SGOT) 15, Alanine Aminotransferase (ALT/SGPT) 15, Alkaline Phosphatase 80, Total Protein 7.0, Albumin 2.3L, Albumin/Globulin Ratio 0.49L, Random Vancomycin Level 5.9 02/12/19 03:31: Methicillin-Resist S.aureus DNA PCR NOT DETECTED CBC/BMP Laboratory Tests 02/12/19 03:01 Microbiology Microbiology 02/12/19 Blood Culture, Received Pending Allergies Coded Allergies: No Known Allergies (Unverified , 12/09/18) Home Medications Scheduled Cholecalciferol (Vitamin D3) (Vitamin D3) 1,000 Unit Tablet, 1,000 UNIT PO QHS, (Reported) Cyanocobalamin (Vitamin B-12) (Vitamin B-12) 1,000 Mcg Tab.subl, 1,000 MCG SL QHS, (Reported) Divalproex Sodium (Divalproex Sodium ER) 500 Mg Tab.er.24h, 500 MG PO QHS, (Reported) Donepezil HCl (Donepezil HCl) 10 Mg Tablet, 10 MG PO QHS, (Reported) Saline Lock Flush (Normal Saline Flush) 3 Ml Syringe, 3 ML IV Q8H, (Reported) Tamsulosin HCl (Flomax) 0.4 Mg Capsule, 0.4 MG PO QHS, (Reported) Vancomycin HCl (Vancomycin HCl) 500 Mg Vial, 400 MG IV DAILY, (Reported) 1400 Scheduled PRN Bisacodyl (Bisacodyl) 10 Mg Supp.rect, 10 MG [place] Q3DP PRN for CONSTIPATION, (Reported) IF NO BM BY DAY 3 AT 0600 Glucagon,Human Recombinant (Glucagon Emergency Kit) 1 Mg Vial, 1 MG IM ASDIRECTED PRN for LOW BLOOD SUGAR, (Reported) Magnesium Hydroxide (Milk of Magnesia) 400 Mg/5 Ml Oral.susp, 2,400 MG PO Q2D PRN for CONSTIPATION, (Reported) IF NO BOWEL MOVEMENT BY DAY 2 AT 2000 Sodium Phosphate,[place]-Dibasic (Fleet Enema) 133 Ml Enema, 1 RYLIE [place] Q4DP PRN for CONGESTION, (Reported) IF NO BM BY DAY 4 Jewels Barrera Feb 12, 2019 08:56
--- NOTE | 2019-02-12 11:04 | REP ---
Bilateral lower extremity duplex arterial ultrasound: History: Peripheral vascular disease with gangrene. Findings: Ankle brachial indices could not be obtained on either side due to noncompressible vessels. Mild plaquing is seen in the upper legs and severe plaquing is seen in the calves bilaterally. The distal right posterior tibial artery is heavily calcified and we were not able to demonstrate flow within it. Monophasic waveforms are noted in the proximal AT A and proximal CHIP APPLYING MACHINE TENDER on the right as well as the posterior tibial artery on the left. This vessel shows reverse flow at the ankle. Monophasic waveforms are noted in the proximal anterior tibial artery on the left as well. Right lower extremity arterial Doppler velocity chart: Right CF A 65 cm/S Profunda 30 Proximal SFA 66 Mid SFA 81 Distal SFA 62 Popliteal 50 Proximal AT A 41 Tibioperoneal trunk 61 Proximal CHIP APPLYING MACHINE TENDER 20 Distal CHIP APPLYING MACHINE TENDER heavily calcified Distal AT A 120 Left lower extremity arterial Doppler velocity chart: CF A 51 cm/S Profunda 26 Proximal SFA 57 Mid SFA 60 five Distal SFA 43 Popliteal 33 Proximal AT A 42 Tibioperoneal trunk 31 Proximal CHIP APPLYING MACHINE TENDER 30 Distal CHIP APPLYING MACHINE TENDER 41 Distal AT A 27 Electronically Signed by Jacinto Eisenberg MD 02/12/2019 10:55 A
[2019-02-12] MEDS ORDERED: **hydrALAZINE** 10 MG TAB PO SCH (12:00)
[2019-02-12] MEDS ORDERED: **hydrALAZINE** 10 MG TAB PO ONE (12:30)
[2019-02-12] MEDS ORDERED: amLODIPine 10 MG TAB PO ONE (12:30)
[2019-02-12] MEDS: amLODIPine 10 MG TAB PO SCH (12:53)
[2019-02-12] MEDS: NITROGLYCERIN 2% OINT 1 GM *U/D* PKT TOP SCH ×3 (12:54→21:00)
[2019-02-12] MEDS: hydrALAZINE 20MG/ML 1ML VIAL (J0360 PER 20MG) IV SCH ×3 (14:38→20:26)
--- NOTE | 2019-02-12 18:10 | CR ---
DATE OF CONSULTATION: 02/12/2019 REASON FOR CONSULTATION: Toe gangrene. Cristian Gomez is an 83-year-old male who presented to the hospital with concern of gangrene to his right 5th toe. He is accompanied by his family, who gives most of the history. He has dementia, and he is a poor historian. They state that the toe has been black for about 2 months. There is some concern whether there was extending infection from this wound, for which he was admitted. REVIEW OF SYSTEMS: Not obtainable. PAST MEDICAL HISTORY: 1. Chronic obstructive pulmonary disease (COPD). 2. Dementia. 3. Peripheral vascular disease. SOCIAL HISTORY: Resides in shelter. FAMILY HISTORY: Noncontributory ALLERGIES: None. Vital signs are reviewed. He has remained afebrile since admission. White blood cell count is 9.4. Arterial studies reviewed. There are noncompressible vessels. There is no flow obvious noted from the right posterior tibial artery. There are some monophasic waveforms to the right anterior tibial artery (JÚNIOR) and posterior tibial artery (LOG DECK TENDER). Lower extremity examination: Mild edema to the right foot with some local erythema to the right forefoot. He has a fully gangrenous right 5th toe. There is some gangrene on the dorsal proximal interphalangeal joint. Gangrenous portion is well demarcated. There are no signs of wet gangrene or soft tissue gas. This is an 83-year-old male with peripheral vascular disease (PVD) and gangrene. PLAN: Discussion had with family. Family concerned about anesthesia affecting his mental status. Last time he had anesthesia, his dementia was greatly worsened for a time, and he took quite awhile to come out of it. Given this and that the wound is well demarcated, would plan to do amputation of toe using local anesthetic only. This could be done either while he is in house or outpatient. Family would like to wait to see how his blood pressure does for a day or two. Will plan to continue current antibiotics for a day or two. Patient most likely will be able to be discharged back to facility Friday. If patient amenable, will remove toe while in house, otherwise can be done in my office. Keep wound dry with Betadine. He is okay to eat.
[2019-02-12] MEDS ORDERED: BISACODYL 10 MG SUPP PR PRN (18:45)
[2019-02-12] MEDS ORDERED: MOM 30ML SUSPENSION UDC PO PRN (19:00)
[2019-02-12] MEDS ORDERED: FLEET ENEMA PR PRN (19:00)
--- NOTE | 2019-02-12 20:06 | IPN ---
DATE: 02/12/2019 According to nurse, patient has been very irritable. He does not open his eyes during interview. Denied any headaches despite elevated blood pressure. Patient remains with his knees flexed. Appears to be contracted with his toes and feet. He denies any headache, changes in vision, blurred vision, pain, eye pain, nausea, vomiting, chest pain, pressure, or tightness, or shortness of breath. As he was being cleaned up at the bedside, he kept on yelling "no" and did not appear to be very cooperative. Patient was to be evaluated with arterial ultrasound for his known gangrene in the right 3rd and 5th toes, to be evaluated by vascular surgery as well as Dr. Murphy. Patient was found to be bradycardic with a rate of 47 overnight but no sinus pauses. Blood pressure was very well maintained without any decompensation. Temperature 97.8, pulse 54, respiratory rate 18, blood pressure is 200/80, 97% on room air. GENERAL: Patient is awake and alert only to his name. He is not very cooperative this morning. Has his eyes closed during the entire interview. Does not truly follow commands but appears to be much more subjective than not being able to. He does have purposeful movements but is not very interactive this morning. No respiratory distress. No jugular venous distention (JVD). No thyromegaly. LUNGS: Rhonchi with diminished breath sounds, coarse. HEART: S1, S2, sinus bradycardia. ABDOMEN: Is soft, nontender. Positive bowel sounds. No rebound or guarding. EXTREMITIES: Patient has a gangrenous right 5th and 2nd toe with some edema and gangrene of the 5th toe. No purulent drainage or open ulcers. Diminished pulses bilaterally, unable to be palpated, but reported to be present by nursing. NEUROLOGIC: Patient is not cooperative but does state his name. He has purposeful movements but does not cooperative with a neurologic exam with contractures of lower extremities with his knees flexes. LABORATORY DATA: White count 9.4, hemoglobin 10, hematocrit 31, platelet count 302. Sodium 141, potassium 3.9, chloride 106, bicarbonate 27, BUN 25, creatinine 1.34, glucose of 88, calcium 8.4. Total bilirubin 0.2 direct. AST 15, ALT 15, alkaline phosphatase 80, albumin 2.3, total protein 7. Blood culture is pending. IMAGING STUDY: Extremity arterial study: Mild plaquing in the upper legs. Severe plaquing in the calves bilaterally. Distal right posterior tibial arteries heavy calcified. Not able to demonstrate flow within it. Reverse flow at the ankle. Monophasic waveforms are noted proximal anterior tibial artery (JÚNIOR) and proximal posterior tibial artery (TREAD BUILDER) on the right as well as posterior tibial artery on the left. Monophasic waveforms are noted within the proximal anterior tibial artery on the left as well. ASSESSMENT AND PLAN: This is an 83-year-old male with a history of chronic obstructive pulmonary disease (COPD), dementia, peripheral vascular disease, transferred from [facility] for vascular services due to right 2nd and 5th toe gangrene and evaluation of a foot infection. Patient was stable overnight. X-ray of the foot was negative for signs of gas gangrene. Lower extremity ultrasounds were negative. Patient was started on vancomycin and Unasyn, and vascular surgery was consulted for revascularization versus amputation. Active issues: 1. Gangrene on the right 5th toe, 2nd toe. Vascular surgery has been consulted. Arterial Doppler shows heavy plaquing, bilateral lower extremities, at the calves. Defer to vascular surgery regarding revascularization. If unable to salvage, may need amputation. Patient is unable to give consent but has a son as well as his to provide consent if needed. 2. Hypertensive urgency. Patient denies any pain at the bedside. He is a known vasculopath. He may benefit from better blood pressure control. Because of the significant bradycardia, we have attempted to avoid beta blockers and calcium channel blockers. Therefore, patient has been given direct vasodilator, hydralazine, and nitroglycerine patch for faster control. Currently denies any headaches or any focal neurologic complaints to suggest a possible intracranial hemorrhage from uncontrolled blood pressure but will continue to monitor. 3. Sinus bradycardia. Will check a thyroid function test, Lyme. Monitor for heart blocks. May need cardiology referral for pacer if patient has sinus pauses or significant bradycardia causing hemodynamic compromise. Patient's blood pressure has been well maintained. He is currently not complaining of any acute ischemic symptoms, such as chest pain or pressure, chest tightness. Patient is nonambulatory and unable to assess for lightheadedness or dizziness with ambulation. 4. History of chronic obstructive pulmonary disease (COPD). Currently with no acute exacerbation. 5. Dementia. Consent to be obtained from the patient's son and . 6. Deep vein thrombosis (DVT) prophylaxis. Held for possible intervention. Will defer to vascular surgery regarding timing of revascularization after consent has been obtained from the family. Code status is a full code. Will need to discuss with the family once they are available. FLORINA
[2019-02-12] MEDS: DONEPEZIL 5 MG TAB PO SCH (20:24)
[2019-02-12] MEDS: DIVALPROEX 250MG *ER* TAB PO SCH (20:25)
[2019-02-12] MEDS: CYANOCOBALAMIN 500 MCG TAB PO SCH (20:25)
[2019-02-12] MEDS: VITAMIN D 1,000 INTERNATIONAL UNITS TABLET PO SCH (20:25)
[2019-02-12] MEDS: TAMSULOSIN 0.4 MG CAP PO SCH (20:25)
[2019-02-13] VITALS (10 sets, daily range): BP systolic 118–162; BP diastolic 56–70
[2019-02-13] MEDS: VANCOMYCIN HCL 1,000 MG, VIAL MATE ADAPTER 1 EACH in D5W 250 ML IV SCH ×2 (00:36→18:28)
[2019-02-13] MEDS: NITROGLYCERIN 2% OINT 1 GM *U/D* PKT TOP SCH ×3 (00:37→08:53)
[2019-02-13] MEDS: hydrALAZINE 20MG/ML 1ML VIAL (J0360 PER 20MG) IV SCH ×2 (03:20→05:23)
[2019-02-13] MEDS: AMPICILLIN SOD/SULBACTAM SOD 1.5 GM in D5W MINI-BAG PLUS 50 ML IV SCH ×4 (05:23→22:26)
[2019-02-13 05:32] LABS: HEMATOCRIT 30.4 % (42.0-52.0); HEMOGLOBIN 10.1 g/dl (13.5-17.5); MEAN CORPUSCULAR HEMOGLOBIN 31.6 pg (27.0-33.0); MEAN CORPUSCULAR HGB CONC 33.2 g/dl (32.0-36.5); PLATELET COUNT, AUTOMATED 295 10^3/uL (150-450); WHITE BLOOD COUNT 10.6 10^3/uL (4.0-10.0)
[2019-02-13 05:58] LABS: CALCIUM LEVEL 7.9 MG/DL (8.8-10.2); CREATININE FOR GFR 1.26 MG/DL (0.70-1.30); POTASSIUM SERUM 3.6 MEQ/L (3.5-5.1)
[2019-02-13] MEDS: amLODIPine 10 MG TAB PO SCH (08:52)
[2019-02-13] MEDS: ACETAMINOPHEN TAB 650MG DOSE (2X325MG) PO PRN (08:57)
[2019-02-13] MEDS ORDERED: amLODIPine 10 MG TAB PO SCH (09:00)
[2019-02-13] MEDS ORDERED: SODIUM CHLORIDE NASAL 0.65% SPRAY BTL (OCEAN) PRN (09:30)
[2019-02-13] MEDS ORDERED: CETIRIZINE (ZyrTEC) 10 MG TAB PO ONE (09:30)
[2019-02-13] MEDS ORDERED: ACETAMINOPHEN 500 MG TAB PO ONE (09:30)
--- NOTE | 2019-02-13 09:39 | IPNPDOC ---
Date Seen The patient was seen on 02/13/19. Progress Note The patient was seen and examined at the bedside yesterday, with his and son present. Please see Jewels HOOD consult note for full consultation. I discussed with the patient his and his son with her goals of care were. The patient is demented, lives at home with his . She says he no longer walks because physical therapy has been discontinued as of a week ago. She said he is able to move from the bed to the chair and the chair to the commode and that is the extent of his ambulation. She does not feel he will be able to ambulate without consistent work with physical therapy. I asked her if she felt he would be bedridden and she said possibly soon but she is not sure. I asked her if her goal is to get him to another living environment or to keep him home and it seems that her goal is to keep him home. Initially, the patient's knees would not straighten this morning and he appeared chronically contracted but this afternoon his legs are straight and he does not appear to have a chronic contraction. He does have pressure ulcers on the back of both heels, a gangrenous right toe with an ulceration over the second toe as well. I put Betadine and gauze over the toe and wrap the foot with dry gauze. The foot is swollen, there is erythema, and it appears the swelling extends to the midcalf. The foot is warm, but there is monophasic DP and PT signals in both feet. I have reviewed his noninvasive arterial study and he appears to have good perfusion to the knee but poor tibial outflow. This is the case bilaterally. Unfortunately, I am not sure he has adequate flow for healing. I discussed with the patient and his if they thought that he could tolerate an arteriogram to see if we might improve flow. There is concerned that he would not be able to lay flat or hold still for the procedure, or to stay in bed after the procedure, but his thinks he may be able to tolerate that she is just not sure. I discussed with her that if the goal was to keep him home and for him to be able to continue to use his foot to help her with transfers, we should probably be more aggressive in our efforts to get more blood flow to the foot and help with amputation healing of that toe. She is not sure if that is what she wants or not. I told her that if there becomes a rapid ascending infection of the foot and leg, the patient would likely require an above-knee amputation. I do not think he has adequate flow for sufficient healing of a below-knee amputation. If he is nonambulatory, and above-knee amputation is a better option. However, at this moment, that is not urgent. I gave him several options to think about, and answered all of their questions. Following this yesterday afternoon, I discussed the patient's case with our podiatry colleague, Dr Murphy, who felt it may be worthwhile to amputate the toe at the bedside, limiting anesthesia (the patient had significant mental status changes after his last round of anesthesia) and addressing the gangrene. Depending on how he heals from this, we may need to pursue arterial intervention, or re-visit the idea of amputation above the knee. Scars the left lower extremity, the heel pressure wound is concerning, but there is no open wound and no gangrene is noted in the left lower extremity tests there is no urgent intervention required. For now we will continue to follow along with podiatry and try to help the family with their decisions regarding further intervention and goals of care. We appreciate the opportunity to participate in the care of this patient. VS, I&O, 24H, Fishbone Vital Signs/I&O Vital Signs Date Time Temp Pulse Resp B/P (MAP) Pulse Ox O2 Delivery O2 Flow Rate FiO2 02/13/19 08:53 143/63 02/13/19 08:52 75 02/13/19 07:36 99.8 16 94 Room Air I&O- Last 24 Hours up to 6 AM 02/13/19 06:00 Intake Total 1750 ml Output Total 0 ml Balance 1750 ml Laboratory Data 24H LABS Laboratory Tests 2 02/13/19 05:06: Nucleated Red Blood Cells % (auto) 0.0, Anion Gap 7L, Glomerular Filtration Rate 58.0, Calcium Level 7.9L CBC/BMP Laboratory Tests 02/13/19 05:06 Microbiology Microbiology 02/12/19 Blood Culture - Preliminary, Resulted No growth after 24 hours . All specim... MARYANNE POPE MD Feb 13, 2019 09:39
[2019-02-13] MEDS: **hydrALAZINE HCL** 25 MG TAB PO SCH ×4 (09:53→21:00)
[2019-02-13] MEDS: SODIUM CHLORIDE NASAL 0.65% SPRAY BTL (OCEAN) SCH ×3 (11:09→22:27)
[2019-02-13] MEDS: ATENOLOL 12.5MG PER 1/2 TABLET PO SCH ×2 (11:10→21:00)
--- NOTE | 2019-02-13 16:45 | IPN ---
DATE: 02/13/2019 The patient's blood pressure was better controlled on IV hydralazine and nitroglycerin. He complains of headache this morning, rated at 6 out of 10, most likely due to nitroglycerin. The patient has no other complaints aside from nasal congestion. He does not take any medications for this at home. Denies any runny nose, rhinorrhea, cough, sore throat, chest pain, pressure, tightness, shortness of breath, lightheadedness or dizziness. The patient, per the family, was ambulating about 2 weeks ago but due to no significant progression physical therapy (PT) was discontinued at the senior care. Family is undecided whether to proceed with revascularization versus amputation. They have many questions and have yet to decide. PHYSICAL EXAMINATION: VITAL SIGNS: Temperature 99.8, pulse 65, respiratory rate 16, blood pressure 150/68, pulse oximetry is 94% on room air. GENERAL: The patient has a bruise under the left eye. He is awake, alert, oriented to person only. He does answer questions appropriately. No use of respiratory muscles. Face is symmetric. No jugular venous distention (JVD) or thyromegaly. Dry mucous membranes. LUNGS: Clear to auscultation. HEART: S1, S2. Sinus rhythm. No murmurs or rubs. ABDOMEN: Soft, nontender, nondistended. EXTREMITIES: The has gangrene on the fifth right digit. Dorsalis pedis and posterior tibialis bilateral lower extremities could not be palpated at bedside but found on Dopplers. Foot remains warm, pink in color with gangrenous changes on the right fifth toe and right second toe with ulcers on bilateral heels, positive pitting edema. Arterial extremity ultrasound showed monophasic waveform is noted, proximal AV and proximal PT on the right, as well as posterior tibial artery, distal right posterior tibial is heavily calcified and we were not able to demonstrate flow within it. The patient has mild plaquing in the upper legs and severe plaquing in the calves bilaterally. LABORATORY DATA: 02/13/2019 white count 10, hemoglobin 10, hematocrit 30, platelet count 295. Sodium 138, potassium 3.6, chloride 105, bicarbonate 26, BUN 22, creatinine 1.26, glucose of 85. Blood culture negative after 24 hours. ASSESSMENT AND PLAN: This is an 83-year-old male who lives at a senior care with chronic obstructive pulmonary disease (COPD), dementia, peripheral vascular disease, transferred from [facility] for vascular services due to right second and fifth toe gangrene and treatment for foot infection. The patient had no issues overnight and with better blood pressure control on IV hydralazine. X-ray of the foot was negative for gas gangrene. Lower ultrasound negative. The patient is currently on Unasyn and vancomycin. Vascular surgery and podiatry, Dr. Murphy, have been consulted. CURRENT ISSUES: 1. Gangrene of the right fifth and second toe. Vascular surgery has been consulted. Arterial studies show heavy plaquing bilaterally. The patient has adequate perfusion to the knee but poor tibial outflow bilaterally. Per vascular surgery, this may not be sufficient for healing. The patient may not tolerate arteriogram and decision still needs to be made regarding further intervention. is not sure whether to proceed. He is currently still being treated for infection of the foot and leg. Options are above the knee amputation, as the patient may not have enough circulation for proper healing for below the knee amputation. Per the family, the patient was ambulatory 2 weeks ago but since he had not progressed, physical therapy (PT) had been discontinued. He was walking previously with a walker about 2 weeks ago. Awaiting decision from the family regarding what type of intervention they would like to proceed with. 2. Hypertension, uncontrolled. The patient's IV hydralazine and nitroglycerin have been discontinued. He may be transferred to medical/surgical floor. Low dose atenolol has been given, 12.5 mg twice a day with holding parameters for a heart rate less than 60, systolic pressure that is less than 140. He is continued on hydralazine 20 mg four times a day and Norvasc 10 mg daily. 3. Headaches due to nitroglycerin patch given at the right dose and frequency. The patient has had complaints of headache, therefore it has been discontinued. 4. Chronic obstructive pulmonary disease (COPD). No exacerbation. 5. Sinus bradycardia. The patient has not had any sinus pauses during this admission. 6. Dementia. The patient lives at a senior care. Consent to be obtained from the patient's for any intervention. [facility]
[2019-02-13] MEDS: ISOSORBIDE DIN. (ISORDIL) 20 MG TAB PO SCH (18:29)
[2019-02-13] MEDS: TAMSULOSIN 0.4 MG CAP PO SCH (22:26)
[2019-02-13] MEDS: CYANOCOBALAMIN 500 MCG TAB PO SCH (22:26)
[2019-02-13] MEDS: DONEPEZIL 5 MG TAB PO SCH (22:26)
[2019-02-13] MEDS: VITAMIN D 1,000 INTERNATIONAL UNITS TABLET PO SCH (22:26)
[2019-02-13] MEDS: DIVALPROEX 250MG *ER* TAB PO SCH (22:26)
[2019-02-14] VITALS (7 sets, daily range): BP systolic 110–146; BP diastolic 49–64
[2019-02-14] MEDS: ISOSORBIDE DIN. (ISORDIL) 20 MG TAB PO SCH ×5 (06:49→23:26)
[2019-02-14] MEDS: AMPICILLIN SOD/SULBACTAM SOD 1.5 GM in D5W MINI-BAG PLUS 50 ML IV SCH ×4 (06:50→23:26)
[2019-02-14] MEDS: **hydrALAZINE HCL** 25 MG TAB PO SCH ×4 (09:00→20:57)
[2019-02-14] MEDS: ATENOLOL 12.5MG PER 1/2 TABLET PO SCH ×2 (09:00→20:57)
[2019-02-14] MEDS: amLODIPine 10 MG TAB PO SCH (09:52)
[2019-02-14] MEDS: CETIRIZINE (ZyrTEC) 10 MG TAB PO SCH (09:52)
[2019-02-14] MEDS: SODIUM CHLORIDE NASAL 0.65% SPRAY BTL (OCEAN) SCH ×3 (09:58→20:55)
[2019-02-14 10:26] LABS: BASO % 0.4 % (0.0-1.0); EOS # 0.3 10^3/uL (0.0-0.5); EOS % 2.9 % (0.0-3.0); HEMATOCRIT 31.9 % (42.0-52.0); HEMOGLOBIN 10.3 g/dl (13.5-17.5); LYMPH # 1.5 10^3/uL (1.5-5.0); LYMPH % 15.3 % (24.0-44.0); MEAN CORPUSCULAR HEMOGLOBIN 31.8 pg (27.0-33.0); MEAN CORPUSCULAR HGB CONC 32.3 g/dl (32.0-36.5); MEAN CORPUSCULAR VOLUME 98.5 fl (80.0-96.0); MONO # 1.1 10^3/uL (0.0-0.8); MONO % 11.6 % (0.0-5.0); NEUTROPHILS # 6.7 10^3/uL (1.5-8.5); NEUTROPHILS % 69.2 % (36.0-66.0); PLATELET COUNT, AUTOMATED 326 10^3/uL (150-450); RED BLOOD COUNT 3.24 10^6/uL (4.30-6.10); WHITE BLOOD COUNT 9.7 10^3/uL (4.0-10.0)
[2019-02-14 10:44] LABS: ERYTHROCYTE SEDIMENTATION RATE 79 mm/hr (0-20)
[2019-02-14 10:50] LABS: C REACTIVE PROTEIN QUANTITATIV 2.72 MG/DL (0.00-0.30); CALCIUM LEVEL 8.6 MG/DL (8.8-10.2); CREATININE FOR GFR 1.46 MG/DL (0.70-1.30); POTASSIUM SERUM 3.8 MEQ/L (3.5-5.1)
[2019-02-14] MEDS: VANCOMYCIN HCL 1,000 MG, VIAL MATE ADAPTER 1 EACH in D5W 250 ML IV SCH (11:20)
--- NOTE | 2019-02-14 19:28 | IPN ---
DATE: 02/14/2019 The patient had no complaints overnight. The had demanded that the patient be transferred to [facility] for a second opinion from vascular surgery. Per [facility], since this is a lateral transfer we would need preauthorization from the patient's medical insurance prior to acceptance. Vascular surgeon at [facility] and [facility] felt that the patient has services available at [facility] and did not requite an emergent transfer and therefore the patient was not accepted. Awaiting patient and family services (PFS) to call the patient's insurance to see if they would provide us with preauthorization to transfer for a second opinion. The patient was afebrile. No complaints of chills. No other issues per nursing overnight. The patient's blood pressure was stable on oral medications, 146 systolic with holding parameters on his medications. He denies any headaches this morning. No chest pain, pressure, tightness or changes in vision. The patient is willing to work with physical therapy (PT) to start ambulation again. He is still maintained on vancomycin and Zosyn for gangrene infection. PHYSICAL EXAMINATION: Temperature 97.8, pulse 60, respiratory rate 18, blood pressure 146/57, 94% on room air. GENERAL: Patient is awake, alert, oriented to himself. Answers questions appropriately. Disoriented to time and place. He has a bruise under the left eye. Face is symmetric. There is no jugular venous distention (JVD) or thyromegaly. Dry mucous membranes. LUNGS: Diminished but clear to auscultation. There is no wheezing, rales or rhonchi. HEART: S1, S2. Sinus rhythm. No murmurs, rubs or gallops. ABDOMEN: Soft, nontender, nondistended. Normoactive bowel sounds. No abdominal bruits, hepatosplenomegaly. No rebound or guarding. EXTREMITIES: Gangrene at the fifth right toe. Dorsalis pedis and posterior tibialis of bilateral lower extremities could not be palpated, best found on Dopplers. The foot remains warm and pink in color. Gangrenous changes and ulcers on bilateral heels and positive 1+ pitting edema. Arterial extremity ultrasound showed monophasic waveform in the proximal AV, proximal PT on the right and posterior tibial artery distal and right posterior tibial is heavily calcified. Unable to demonstrate flow within it. The patient has mild plaquing in the upper legs and severe plaquing in the calves bilaterally. LABORATORY DATA: Pending. ASSESSMENT AND PLAN: This is an 86-year-old, FULL CODE, demented gentleman from a senior living with a history of chronic obstructive pulmonary disease (COPD), peripheral vascular disease, transferred from [facility] for vascular services due to right second and fifth toe gangrene and treatment for foot infection. The patient was found to have hypertensive urgency and required blood pressure medications, initially intravenously, but currently stable on oral medications. He is currently on Unasyn, vancomycin. Vascular surgery and career technical education instructor, Dr. Murphy, has been consulted for gangrene in right fifth and second toe, vascular surgery consulted, arterial studies showed heavy plaquing bilaterally. The patient has adequate perfusion to the knee but poor tibial outflow bilaterally, which may not be sufficient for healing. The patient may not tolerate arteriogram. Decision needs to be made regarding further intervention. is unsure what to do but demanding to be transferred for a second opinion to [facility]. We are currently awaiting insurance preauthorization for lateral transfer. Patient and family services (PFS) has been consulted. He is currently being treated with Unasyn, IV vancomycin for infection of the foot. Options are above the knee amputation, the patient may not have enough circulation for proper healing below the knee. Per the family, the patient was ambulatory with a walker 2 weeks ago and since he has not progressed, physical therapy (PT) has been discontinued at the outlying facility. Hypertension, improved. Currently with holding parameters on his Norvasc, hydralazine and isosorbide. Atenolol has been added with holding parameters for heart rate less than 60. Headache due to nitroglycerin. At this time, nitroglycerin patch has been discontinued. Chronic obstructive pulmonary disease (COPD), currently compensated. Sinus bradycardia. No signs of pauses noted on telemetry. Judicious use of atenolol and discontinue if heart rate is less than 60. Dementia. Lives at a senior living. Consent is obtained from the . [facility]
[2019-02-14] MEDS: DIVALPROEX 250MG *ER* TAB PO SCH (20:54)
[2019-02-14] MEDS: CYANOCOBALAMIN 500 MCG TAB PO SCH (20:54)
[2019-02-14] MEDS: DONEPEZIL 5 MG TAB PO SCH (20:54)
[2019-02-14] MEDS: VITAMIN D 1,000 INTERNATIONAL UNITS TABLET PO SCH (20:54)
[2019-02-14] MEDS: TAMSULOSIN 0.4 MG CAP PO SCH (20:54)
[2019-02-15] MEDS: AMPICILLIN SOD/SULBACTAM SOD 1.5 GM in D5W MINI-BAG PLUS 50 ML IV SCH (05:19)
[2019-02-15] MEDS: ISOSORBIDE DIN. (ISORDIL) 20 MG TAB PO SCH ×3 (05:21→18:05)
[2019-02-15 06:00] VITALS: BP 136/54
--- NOTE | 2019-02-15 06:06 | PHACANCOPD ---
PHARMACY VANCOMYCIN DOSING Pt Demographics Demographics Patient Age:83 , Weight:58.700 , Gender: male Adjusted Body Weight Date: 02/12/19, Adjusted Body Weight: [55.48] Kg(ACTUAL) Vancomycin Vancomycin indication: GANGRENE TOES Vancomycin Target Ranges: 15-20 mcg/ml Vancomycin Load Y/N: No Load Dose Date Time Vancomycin Load Dose: Date: Time: Vancomycin Dose Date: 02/12/19. Current Vancomycin Dose: [1GM Q18H] Intermittent Dosing?: No Labs Micro Microbiology 02/12/19 Blood Culture - Preliminary, Resulted No Growth after 72 hours. All specime... Creatinine Clearance Date:02/12/19. Creatinine Clearance: [32.2].CALCULATED Assessment and Plan Maintaining Current Dose?: No Reason for dose change: Trough too high, Trough too low Pharmacist Note Pharmacist Note Date: 02/15/19. Pharmacist note:Vancomycin trough drawn this morning@5:15 reported as 220.3. Will adjust Vancomycin regimen to from 1 gram IV Q18 hours to 1 gram IV Q24 hours to begin@12noon today.-will continue to follow labs Date: 02/12/19. Pharmacist note: [id number] Direct admission from [facility] w/gangrene toes. SCR=1.34,CALCULATED CRCL=32.2,NKDA,TO RECEIVE Ampicillin Sulbactam 1.5GM [id number] and Pharmacy dosed Vancomycin.Had received Vancomycin at [facility] so random level was ordered (reported as 5.9@05:30),Will begin Vancomycin 1 gram IV [id number]@0600. Next level is scheduled for 02/13@1700-will continue to follow labs JOHN GARCIA PHARMACY Feb 15, 2019 06:06
[2019-02-15] MEDS: **hydrALAZINE HCL** 25 MG TAB PO SCH ×4 (08:40→21:00)
[2019-02-15] MEDS: amLODIPine 10 MG TAB PO SCH (08:41)
[2019-02-15] MEDS: ATENOLOL 12.5MG PER 1/2 TABLET PO SCH (08:41)
[2019-02-15] MEDS: CETIRIZINE (ZyrTEC) 10 MG TAB PO SCH (09:00)
[2019-02-15] MEDS: SODIUM CHLORIDE NASAL 0.65% SPRAY BTL (OCEAN) SCH ×3 (09:01→21:24)
[2019-02-15] MEDS ORDERED: NS 500 ML IV ONE (09:30)
[2019-02-15 10:00] VITALS: BP 132/55
[2019-02-15] MEDS: AUGMENTIN 875 MG TAB PO SCH ×2 (11:19→21:22)
[2019-02-15] MEDS ORDERED: VANCOMYCIN HCL 1,000 MG, VIAL MATE ADAPTER 1 EACH in D5W 250 ML IV SCH (12:00)
[2019-02-15] MEDS: ENOXAPARIN 30MG/0.3ML SYRINGE (J1650 PER 10MG) SC SCH (12:21)
--- NOTE | 2019-02-15 15:01 | IPN ---
DATE OF SERVICE: 02/15/2019 Patient has no complaints. Was noted to cough whenever he tried to eat. Swallow evaluation recommends a mechanical soft diet for him. He is has been bradycardic but denies any lightheadedness or dizziness. No pain, pressure or tightness of the chest. No nausea or vomiting. Tolerating his diet well. The patient is nonambulatory at the moment, but family is requesting rehab services. PHYSICAL EXAMINATION: Temperature 97.6, pulse 51, respiratory rate 19, blood pressure 132/55, 99% on room air. GENERAL: Awake, alert, oriented to himself only. He is disoriented to time and place. He does answer questions, but inappropriate at times. No use of accessory muscles. No jugular venous distention (JVD). No thyromegaly. LUNGS: Diminished but clear to auscultation. No wheezing, rales or rhonchi. HEART: S1, S2. Sinus rhythm. No murmurs, rubs or gallops. ABDOMEN: Soft, nontender, nondistended. Normal active bowel sounds. No abdominal bruits, hepatosplenomegaly. No rebound or guarding. EXTREMITIES: Gangrene of the fifth right toe. Dorsalis pedis and posterior tibialis of bilateral lower extremities could not be palpated, best found on Dopplers. The foot remains warm, pink in color, except for the gangrenous changes in the fifth right toe and second right toe. The patient does have ulcers on bilateral heels with 1+ pitting edema. Extremity ultrasound monophasic waveform proximal AVPT on the right and posterior tibial artery distal and right posterior tibial is heavily calcified. Unable to demonstrate flow within it. The patient has mild plaquing in the upper legs and severe plaquing in the calves bilaterally. LABORATORY DATA: Microbiology and other imaging studies have been reviewed. ASSESSMENT AND PLAN: 86-year-old, FULL CODE, demented gentleman from group home with history of chronic obstructive pulmonary disease (COPD), peripheral vascular disease, transferred from [facility] for vascular services due to right second and fifth toe gangrene and treatment for foot infection. The patient was found to have hypertensive urgency and required blood pressure medications, intravenously initially, but currently stable on oral medications. The patient had been on IV Zosyn and vancomycin per vascular surgery and events administrative assistant, Dr. Murphy. Amputation or autoamputation can be provided and the patient may followup as an outpatient with Dr. Jolly if the patient can tolerate angiogram and if the amputated toe does not heal may consider revascularization. At this time, the patient's is opting to pursue any amputation. CURRENT ISSUES: 1. Gangrene of the right fifth toe and right second toe. The patient's is not giving permission for amputation. She would like autoamputation. His IV vanco and Unasyn have been changed to Augmentin for now. Methicillin-resistant Staphylococcus aureus (MRSA) screen was negative. 2. Hypertension. Currently on Norvasc, hydralazine and isosorbide. 3. Headache due to nitroglycerin has been resolved. 4. Chronic obstructive pulmonary disease (COPD), compensated. 5. Sinus bradycardia. On telemetry. Atenolol discontinued. 6. Dementia. Lives at a group home, but will need replacement. [facility]
[2019-02-15] MEDS: TAMSULOSIN 0.4 MG CAP PO SCH (21:22)
[2019-02-15] MEDS: VITAMIN D 1,000 INTERNATIONAL UNITS TABLET PO SCH (21:22)
[2019-02-15] MEDS: DIVALPROEX 250MG *ER* TAB PO SCH (21:23)
[2019-02-15] MEDS: CYANOCOBALAMIN 500 MCG TAB PO SCH (21:23)
[2019-02-15] MEDS: DONEPEZIL 5 MG TAB PO SCH (21:23)
[2019-02-15 22:00] VITALS: BP 147/67
[2019-02-16] MEDS: ISOSORBIDE DIN. (ISORDIL) 20 MG TAB PO SCH ×4 (00:37→17:31)
[2019-02-16 02:00] VITALS: BP 141/68
[2019-02-16 06:00] VITALS: BP 142/66
[2019-02-16 08:10] LABS: HEMATOCRIT 28.2 % (42.0-52.0); HEMOGLOBIN 9.3 g/dl (13.5-17.5); MEAN CORPUSCULAR VOLUME 96.9 fl (80.0-96.0); PLATELET COUNT, AUTOMATED 307 10^3/uL (150-450); RED BLOOD COUNT 2.91 10^6/uL (4.30-6.10); WHITE BLOOD COUNT 9.7 10^3/uL (4.0-10.0)
[2019-02-16 08:38] LABS: CALCIUM LEVEL 8.3 MG/DL (8.8-10.2); CREATININE FOR GFR 1.24 MG/DL (0.70-1.30); GLOMERULAR FILTRATION RATE 59.1 (>35); POTASSIUM SERUM 3.9 MEQ/L (3.5-5.1)
[2019-02-16 09:00] VITALS: BP 128/60
[2019-02-16] MEDS: AUGMENTIN 875 MG TAB PO SCH ×2 (11:11→21:18)
[2019-02-16] MEDS: SODIUM CHLORIDE NASAL 0.65% SPRAY BTL (OCEAN) SCH ×3 (11:11→21:17)
[2019-02-16] MEDS: amLODIPine 10 MG TAB PO SCH (11:12)
[2019-02-16] MEDS: CETIRIZINE (ZyrTEC) 10 MG TAB PO SCH (11:12)
[2019-02-16] MEDS: **hydrALAZINE HCL** 25 MG TAB PO SCH ×4 (11:12→21:18)
[2019-02-16] MEDS: ENOXAPARIN 30MG/0.3ML SYRINGE (J1650 PER 10MG) SC SCH (11:34)
--- NOTE | 2019-02-16 11:41 | IPNPDOC ---
Text Note Date of Service The patient was seen on 02/16/19. NOTE SUBJECTIVE: Somnolent but easily arousable and answers questions though inap propriately, cooperative , follows commands. Falls asleep during interview. Denies any complaints. PHYSICAL EXAMINATION: VITALS : As below. GENERAL: Awake, alert, oriented to himself only. He is disoriented to time and place. He does answer questions, but inappropriate at times. HEENT: Normocephalic , atraumatic, anicteric eyes, moist mucus membranes. NECK: No jugular venous distention (JVD). No thyromegaly. LUNGS: Diminished but clear to auscultation. No wheezing, rales or rhonchi. HEART: S1, S2. Sinus rhythm. No murmurs, rubs or gallops. ABDOMEN: Soft, nontender, nondistended. Normal active bowel sounds. No hepatosplenomegaly. No rebound or guarding. EXTREMITIES: Gangrene of the right fifth toe and right second toe. Dorsalis pedis and posterior tibialis of bilateral lower extremities could not be palpated, best found on Dopplers. The foot remains warm, pink in color, except for the gangrenous changes in the fifth right toe and second right toe. The patient does have ulcers on bilateral heels , No edema. LABORATORY DATA: Reviewed. ASSESSMENT AND PLAN: 86-year-old, FULL CODE, demented [facility] with history of chronic obstructive pulmonary disease (COPD), peripheral vascular disease, Dementia, Hypertension, transferred from [facility] for vascular services due to right second and fifth toe gangrene and treatment for foot infection. The patient was found to have hypertensive urgency and required blood pressure medications, intravenously initially, but currently stable on oral medications. The patient had been on IV Zosyn and vancomycin now discontinued. Per vascular surgery and ed educational aide, Dr. Murphy amputation or autoamputation can be provided and the patient may followup as an outpatient with Dr. Jolly if the patient can tolerate angiogram and if the amputated toe does not heal may consider revascularization. At this time, the patient's is opting not to pursue any amputation. Wants it to autoamputate. PVD with Gangrene of the right fifth toe and right second toe. The patient's is not giving permission for amputation. She would like autoamputation. on augmentin (MRSA) screen was negative. Hypertension. Currently on Norvasc, hydralazine Had bradycardia with betablocker. Chronic obstructive pulmonary disease (COPD), compensated. Sinus bradycardia. On telemetry. Atenolol discontinued. Dementia : penitentiary replacement. on donepezil and depakote BPH continue flomax. Pressure ulcers in both heels. boots in place. DVT prophylaxis in place. Dispo: [facility] placement. VS,Fishbone, I+O VS, Christoferbone, I+O Laboratory Tests 02/16/19 07:58 Vital Signs Date Time Temp Pulse Resp B/P (MAP) Pulse Ox O2 Delivery O2 Flow Rate FiO2 02/16/19 11:12 65 128/60 02/16/19 06:00 97.9 20 91 Room Air I&O- Last 24 Hours up to 6 AM 02/16/19 06:00 Intake Total 1802 ml Output Total 0 ml Balance 1802 ml PARESH BAKER MD Feb 16, 2019 11:40
[2019-02-16 14:00] VITALS: BP 120/60
[2019-02-16 18:00] VITALS: BP 130/75
[2019-02-16] MEDS: VITAMIN D 1,000 INTERNATIONAL UNITS TABLET PO SCH (21:18)
[2019-02-16] MEDS: CYANOCOBALAMIN 500 MCG TAB PO SCH (21:18)
[2019-02-16] MEDS: TAMSULOSIN 0.4 MG CAP PO SCH (21:18)
[2019-02-16] MEDS: DONEPEZIL 5 MG TAB PO SCH (21:18)
[2019-02-16] MEDS: DIVALPROEX 250MG *ER* TAB PO SCH (21:19)
[2019-02-16 22:00] VITALS: BP 169/65
[2019-02-17] VITALS (8 sets, daily range): BP systolic 110–164; BP diastolic 49–83
[2019-02-17] MEDS: ISOSORBIDE DIN. (ISORDIL) 20 MG TAB PO SCH ×3 (00:25→11:06)
[2019-02-17 06:31] LABS: HEMATOCRIT 29.3 % (42.0-52.0); HEMOGLOBIN 9.8 g/dl (13.5-17.5); MEAN CORPUSCULAR HEMOGLOBIN 32.2 pg (27.0-33.0); MEAN CORPUSCULAR HGB CONC 33.4 g/dl (32.0-36.5); MEAN CORPUSCULAR VOLUME 96.4 fl (80.0-96.0); PLATELET COUNT, AUTOMATED 347 10^3/uL (150-450); RED BLOOD COUNT 3.04 10^6/uL (4.30-6.10); WHITE BLOOD COUNT 9.5 10^3/uL (4.0-10.0)
[2019-02-17 06:50] LABS: CALCIUM LEVEL 8.5 MG/DL (8.8-10.2); CREATININE FOR GFR 1.3 MG/DL (0.70-1.30); POTASSIUM SERUM 3.8 MEQ/L (3.5-5.1)
--- NOTE | 2019-02-17 08:49 | IPN ---
DATE OF VISIT: 02/15/2019 The patient seen and examined. Family is at bedside. No overnight events are noted. Maximum temperature (Tmax) 99. Labs are reviewed. Most recent white blood cell count was 9.7, ESR 79, CRP 2.72. Lower extremity examination: Erythema and edema somewhat improved of the right foot. Right 5th toe is still fully gangrenous. No purulence is noted. No further dysvascular changes. ASSESSMENT: 83-year-old male with peripheral vascular disease with right 5th toe gangrene and cellulitis. PLAN: Treatment options discussed with family. The family had come to consensus that for now they do not wish the toe to be removed and would like the gangrene to take its course, ideally allowing the toe to fall off on its own. Did discuss risks of this including persisting or recurring infection. Given poor vasculature though it is not any guarantee that removing the 5th toe would heal. The family at this time not interested in preceding with vascular intervention. There had been some discussion of possible transfer to [place] for another opinion regarding vascular options, but family at time of my visit no longer seemed interested in this. For now the plan will be to allow the toe to continue to mummify and ideally cleanly fall on its own accord. They are to keep it clean with Betadine. If there is persisting infection or any changes otherwise, can plan to remove the toe. This could be done in my office outpatient with just local anesthesia if need be. They are directed to call me if any changes or any new problems arise. He should have followup with me in the office 1-2 weeks after discharge. Edited: 02/17/2019 0848 colby
[2019-02-17] MEDS: AUGMENTIN 875 MG TAB PO SCH ×2 (11:04→20:26)
[2019-02-17] MEDS: CETIRIZINE (ZyrTEC) 10 MG TAB PO SCH (11:04)
[2019-02-17] MEDS: ENOXAPARIN 30MG/0.3ML SYRINGE (J1650 PER 10MG) SC SCH (11:05)
[2019-02-17] MEDS: SODIUM CHLORIDE NASAL 0.65% SPRAY BTL (OCEAN) SCH ×3 (11:05→20:27)
[2019-02-17] MEDS: amLODIPine 10 MG TAB PO SCH (11:08)
[2019-02-17] MEDS: **hydrALAZINE HCL** 25 MG TAB PO SCH (11:08)
--- NOTE | 2019-02-17 12:50 | IPNPDOC ---
Text Note Date of Service The patient was seen on 02/17/19. NOTE SUBJECTIVE: Awake and alert this am. DOes not offer any complaints. No fever or chills, no abdominal pain , nausea or vomiting. PHYSICAL EXAMINATION: VITALS : As below. GENERAL: Awake, alert, oriented to himself only. He is disoriented to time and place. He does answer questions, but inappropriate at times. HEENT: Normocephalic , atraumatic, anicteric eyes, moist mucus membranes. NECK: No jugular venous distention (JVD). No thyromegaly. LUNGS: Diminished but clear to auscultation. No wheezing, rales or rhonchi. HEART: S1, S2. Sinus rhythm. No murmurs, rubs or gallops. ABDOMEN: Soft, nontender, nondistended. Normal active bowel sounds. No hepatosplenomegaly. No rebound or guarding. EXTREMITIES: Gangrene of the right fifth toe and right second toe. Dorsalis pedis and posterior tibialis of bilateral lower extremities could not be palpated, best found on Dopplers. The foot remains warm, pink in color, except for the gangrenous changes in the fifth right toe and second right toe. The patient does have ulcers on bilateral heels , No edema. LABORATORY DATA: Reviewed. ASSESSMENT AND PLAN: 86-year-old, FULL CODE, demented gentleman from snf with history of chronic obstructive pulmonary disease (COPD), peripheral vascular disease, Dementia, Hypertension, transferred from [facility] for vascular services due to right second and fifth toe gangrene and treatment for foot infection. The patient was found to have hypertensive urgency and required blood pressure medications, intravenously initially, but currently stable on oral medications. The patient had been on IV Zosyn and vancomycin now discontinued. Per vascular surgery and straight tooth gear generator operator, Dr. Murphy amputation or autoamputation can be provided and the patient may followup as an outpatient with Dr. Jolly if the patient can tolerate angiogram and if the amputated toe does not heal may consider revascularization. At this time, the patient's is opting not to pursue any amputation. Wants it to autoamputate. PVD with Gangrene of the right fifth toe and right second toe. family does not want any surgical intervention now. Wants to allow it to autoamputate. (MRSA) screen was negative. Follow up with Dr Murphy in 1 to 2 weeks after discharge or prn . If surgical amputation is required it can be done in the office under local anesthesia Hypertension. Currently on Norvasc, will start on lisinopril. willstop hydralazine and isosorbide. Had bradycardia with betablocker. Chronic obstructive pulmonary disease (COPD), compensated. Sinus bradycardia. On telemetry. Atenolol discontinued. Dementia : snf replacement. on donepezil and depakote BPH continue flomax. Pressure ulcers in both heels. boots in place. DVT prophylaxis in place. Dispo: halfway placement. VS,Fishbone, I+O VS, Fishbone, I+O Laboratory Tests 02/17/19 06:06 Vital Signs Date Time Temp Pulse Resp B/P (MAP) Pulse Ox O2 Delivery O2 Flow Rate FiO2 02/17/19 11:08 70 162/60 02/17/19 10:00 97.7 17 91 Room Air I&O- Last 24 Hours up to 6 AM 02/17/19 06:00 Intake Total 780 ml Output Total 0 ml Balance 780 ml PARESH BAKER MD Feb 17, 2019 12:49
[2019-02-17] MEDS: DONEPEZIL 5 MG TAB PO SCH (20:26)
[2019-02-17] MEDS: lisinopriL 10 MG TAB PO SCH (20:26)
[2019-02-17] MEDS: TAMSULOSIN 0.4 MG CAP PO SCH (20:26)
[2019-02-17] MEDS: CYANOCOBALAMIN 500 MCG TAB PO SCH (20:26)
[2019-02-17] MEDS: VITAMIN D 1,000 INTERNATIONAL UNITS TABLET PO SCH (20:26)
[2019-02-17] MEDS: DIVALPROEX 250MG *ER* TAB PO SCH (20:27)
[2019-02-18] VITALS (7 sets, daily range): BP systolic 92–154; BP diastolic 54–80
[2019-02-18 06:32] LABS: HEMATOCRIT 31.2 % (42.0-52.0); MEAN CORPUSCULAR HEMOGLOBIN 31.6 pg (27.0-33.0); MEAN CORPUSCULAR HGB CONC 32.1 g/dl (32.0-36.5); MEAN CORPUSCULAR VOLUME 98.7 fl (80.0-96.0); PLATELET COUNT, AUTOMATED 353 10^3/uL (150-450); RED BLOOD COUNT 3.16 10^6/uL (4.30-6.10); WHITE BLOOD COUNT 9.8 10^3/uL (4.0-10.0)
[2019-02-18 06:53] LABS: CALCIUM LEVEL 8.1 MG/DL (8.8-10.2); CREATININE FOR GFR 1.35 MG/DL (0.70-1.30); GLOMERULAR FILTRATION RATE 53.6 (>35); POTASSIUM SERUM 3.6 MEQ/L (3.5-5.1)
[2019-02-18] MEDS: ENOXAPARIN 30MG/0.3ML SYRINGE (J1650 PER 10MG) SC SCH (09:00)
[2019-02-18] MEDS: amLODIPine 10 MG TAB PO SCH (09:00)
[2019-02-18] MEDS: CETIRIZINE (ZyrTEC) 10 MG TAB PO SCH (09:42)
[2019-02-18] MEDS: AUGMENTIN 875 MG TAB PO SCH ×2 (09:42→21:30)
[2019-02-18] MEDS: SODIUM CHLORIDE NASAL 0.65% SPRAY BTL (OCEAN) SCH ×3 (09:43→21:31)
[2019-02-18] MEDS: DIVALPROEX 250MG *ER* TAB PO SCH (21:30)
[2019-02-18] MEDS: VITAMIN D 1,000 INTERNATIONAL UNITS TABLET PO SCH (21:30)
[2019-02-18] MEDS: lisinopriL 10 MG TAB PO SCH (21:30)
[2019-02-18] MEDS: TAMSULOSIN 0.4 MG CAP PO SCH (21:30)
[2019-02-18] MEDS: DONEPEZIL 5 MG TAB PO SCH (21:30)
[2019-02-18] MEDS: CYANOCOBALAMIN 500 MCG TAB PO SCH (21:30)
[2019-02-19 02:00] VITALS: BP 149/78
[2019-02-19 06:00] VITALS: BP 149/80
[2019-02-19] MEDS: AUGMENTIN 875 MG TAB PO SCH ×2 (08:33→20:31)
[2019-02-19] MEDS: CETIRIZINE (ZyrTEC) 10 MG TAB PO SCH (08:33)
[2019-02-19] MEDS: amLODIPine 10 MG TAB PO SCH (08:33)
[2019-02-19] MEDS: SODIUM CHLORIDE NASAL 0.65% SPRAY BTL (OCEAN) SCH ×3 (08:34→20:37)
[2019-02-19] MEDS: ENOXAPARIN 30MG/0.3ML SYRINGE (J1650 PER 10MG) SC SCH (08:34)
[2019-02-19 10:00] VITALS: BP 106/54
[2019-02-19 14:00] VITALS: BP 112/68
[2019-02-19 18:00] VITALS: BP 120/74
[2019-02-19] MEDS: VITAMIN D 1,000 INTERNATIONAL UNITS TABLET PO SCH (20:30)
[2019-02-19] MEDS: CYANOCOBALAMIN 500 MCG TAB PO SCH (20:30)
[2019-02-19] MEDS: DONEPEZIL 5 MG TAB PO SCH (20:31)
[2019-02-19] MEDS: DIVALPROEX 250MG *ER* TAB PO SCH (20:31)
[2019-02-19] MEDS: TAMSULOSIN 0.4 MG CAP PO SCH (20:31)
[2019-02-19] MEDS: lisinopriL 10 MG TAB PO SCH (20:35)
[2019-02-19 22:00] VITALS: BP 146/78
[2019-02-20 02:00] VITALS: BP 151/75
[2019-02-20] MEDS: amLODIPine 10 MG TAB PO SCH (09:00)
[2019-02-20] MEDS: AUGMENTIN 875 MG TAB PO SCH ×2 (09:10→20:28)
[2019-02-20] MEDS: CETIRIZINE (ZyrTEC) 10 MG TAB PO SCH (09:10)
[2019-02-20] MEDS: ENOXAPARIN 30MG/0.3ML SYRINGE (J1650 PER 10MG) SC SCH (09:11)
[2019-02-20] MEDS: SODIUM CHLORIDE NASAL 0.65% SPRAY BTL (OCEAN) SCH ×3 (09:11→20:45)
[2019-02-20 10:00] VITALS: BP 97/52
[2019-02-20 14:00] VITALS: BP 130/58
[2019-02-20 18:00] VITALS: BP 90/52
[2019-02-20 18:38] VITALS: BP 104/62
[2019-02-20] MEDS: DIVALPROEX 250MG *ER* TAB PO SCH (20:28)
[2019-02-20] MEDS: VITAMIN D 1,000 INTERNATIONAL UNITS TABLET PO SCH (20:28)
[2019-02-20] MEDS: CYANOCOBALAMIN 500 MCG TAB PO SCH (20:29)
[2019-02-20] MEDS: DONEPEZIL 5 MG TAB PO SCH (20:29)
[2019-02-20] MEDS: TAMSULOSIN 0.4 MG CAP PO SCH (20:29)
[2019-02-20] MEDS: lisinopriL 10 MG TAB PO SCH (20:31)
[2019-02-20 22:00] VITALS: BP 142/72
[2019-02-21] VITALS (7 sets, daily range): BP systolic 98–180; BP diastolic 50–80
[2019-02-21] MEDS ORDERED: amLODIPine 10 MG TAB PO ONE (01:45)
[2019-02-21] MEDS ORDERED: traZODone 25MG PER 1/2 TABLET PO PRN (06:45)
[2019-02-21 07:07] LABS: BASO % 0.3 % (0.0-1.0); EOS # 0.3 10^3/uL (0.0-0.5); EOS % 2.3 % (0.0-3.0); HEMOGLOBIN 10.5 g/dl (13.5-17.5); LYMPH # 1.6 10^3/uL (1.5-5.0); LYMPH % 15.1 % (24.0-44.0); MEAN CORPUSCULAR HEMOGLOBIN 32.7 pg (27.0-33.0); MEAN CORPUSCULAR HGB CONC 32.8 g/dl (32.0-36.5); MEAN CORPUSCULAR VOLUME 99.7 fl (80.0-96.0); MONO # 1.1 10^3/uL (0.0-0.8); MONO % 9.9 % (0.0-5.0); NEUTROPHILS # 7.7 10^3/uL (1.5-8.5); NEUTROPHILS % 71.7 % (36.0-66.0); PLATELET COUNT, AUTOMATED 405 10^3/uL (150-450); RED BLOOD COUNT 3.21 10^6/uL (4.30-6.10); WHITE BLOOD COUNT 10.8 10^3/uL (4.0-10.0)
[2019-02-21 07:38] LABS: CALCIUM LEVEL 8.6 MG/DL (8.8-10.2); CREATININE FOR GFR 1.48 MG/DL (0.70-1.30); GLOMERULAR FILTRATION RATE 48.2 (>35); POTASSIUM SERUM 4.4 MEQ/L (3.5-5.1)
[2019-02-21] MEDS: CETIRIZINE (ZyrTEC) 10 MG TAB PO SCH (08:06)
[2019-02-21] MEDS: SODIUM CHLORIDE NASAL 0.65% SPRAY BTL (OCEAN) SCH ×3 (08:07→20:31)
[2019-02-21] MEDS: AUGMENTIN 875 MG TAB PO SCH ×2 (08:07→20:29)
[2019-02-21] MEDS: ENOXAPARIN 30MG/0.3ML SYRINGE (J1650 PER 10MG) SC SCH (08:07)
--- NOTE | 2019-02-21 08:46 | IPNPDOC ---
Text Note Date of Service The patient was seen on 02/21/19. NOTE SUBJECTIVE: No issues this week. pateint does not offer any complaints today. Seen sitting up in chair having his breakfast by himself. No fever or chills, no abdominal pain , nausea or vomiting. answers questions and follows commands. Oriented to only person. Says he is in the [facility]. PHYSICAL EXAMINATION: VITALS : As below. GENERAL: Awake, alert, oriented to himself only. He is disoriented to time and place. He does answer questions, but inappropriate at times. HEENT: Normocephalic , atraumatic, anicteric eyes, moist mucus membranes. NECK: No jugular venous distention (JVD). No thyromegaly. LUNGS: Diminished but clear to auscultation. No wheezing, rales or rhonchi. HEART: S1, S2. Sinus rhythm. No murmurs, rubs or gallops. ABDOMEN: Soft, nontender, nondistended. Normal active bowel sounds. No hepatosplenomegaly. No rebound or guarding. EXTREMITIES: Gangrene of the right fifth toe and right second toe. Dorsalis pedis and posterior tibialis of bilateral lower extremities could not be palpated, best found on Dopplers. The foot remains warm, pink in color, except for the gangrenous changes in the fifth right toe . The patient does have ulcers on bilateral heels , No edema. LABORATORY DATA: Reviewed. ASSESSMENT AND PLAN: 86-year-old, FULL CODE, demented gentleman from intermediate with history of chronic obstructive pulmonary disease (COPD), peripheral vascular disease, Dementia, Hypertension, transferred from [facility] for vascular services due to right second and fifth toe gangrene and treatment for foot infection. The patient was found to have hypertensive urgency and required b lood pressure medications, intravenously initially, but currently stable on oral medications. The patient had been on IV Zosyn and vancomycin now discontinued. Per vascular surgery and pasteurizer, Dr. Murphy amputation or autoamputation can be provided and the patient may followup as an outpatient with Dr. Jolly if the patient can tolerate angiogram and if the amputated toe does not heal may consider revascularization. At this time, the patient's is opting not to pursue any amputation. Wants it to autoamputate. PVD with Gangrene of the right fifth toe and right second toe. family does not want any surgical intervention now. Wants to allow it to autoamputate. (MRSA) screen was negative. Follow up with Dr Murphy in 1 to 2 weeks after discharge or prn . If surgical amputation is required it can be done in the office under local anesthesia finished a course of antibiotics. Hypertension. not controlled at night. however low in the AMs Currently on Norvasc and lisinopril. will decrease lisinopril to 5 and change amlodipine to night time. Had bradycardia with betablocker. Chronic obstructive pulmonary disease (COPD), compensated. Sinus bradycardia. On telemetry. Atenolol discontinued. Dementia : intermediate replacement. on donepezil and depakote trazodone for insomnia. BPH continue flomax. Pressure ulcers in both heels. boots in place. CKD stage 3 mild elevation in creatinine. will continue to monitor Lisinopril dosage reduced. DVT prophylaxis in place. Dispo: [facility] placement. VS,Santie, I+O VS, Romy, I+O Vital Signs Date Time Temp Pulse Resp B/P (MAP) Pulse Ox O2 Delivery O2 Flow Rate FiO2 02/21/19 06:00 97.9 61 17 144/76 (98) 94 Room Air I&O- Last 24 Hours up to 6 AM 02/21/19 06:00 Intake Total 1300 ml Output Total 475 ml Balance 825 ml PARESH BAKER MD Feb 21, 2019 06:46
[2019-02-21] MEDS ORDERED: amLODIPine 10 MG TAB PO SCH (09:00)
[2019-02-21] MEDS: TAMSULOSIN 0.4 MG CAP PO SCH (20:28)
[2019-02-21] MEDS: VITAMIN D 1,000 INTERNATIONAL UNITS TABLET PO SCH (20:28)
[2019-02-21] MEDS: DONEPEZIL 5 MG TAB PO SCH (20:28)
[2019-02-21] MEDS: DIVALPROEX 250MG *ER* TAB PO SCH (20:29)
[2019-02-21] MEDS: CYANOCOBALAMIN 500 MCG TAB PO SCH (20:29)
[2019-02-21] MEDS: amLODIPine 10 MG TAB PO SCH (20:29)
[2019-02-21] MEDS: lisinopriL 5 MG TAB PO SCH (20:30)
[2019-02-21] MEDS ORDERED: lisinopriL 10 MG TAB PO SCH ×2 (21:00)
[2019-02-22 02:00] VITALS: BP 156/68
[2019-02-22 06:00] VITALS: BP 148/64
[2019-02-22] MEDS: CETIRIZINE (ZyrTEC) 10 MG TAB PO SCH (09:09)
[2019-02-22] MEDS: ENOXAPARIN 30MG/0.3ML SYRINGE (J1650 PER 10MG) SC SCH (09:10)
[2019-02-22] MEDS: SODIUM CHLORIDE NASAL 0.65% SPRAY BTL (OCEAN) SCH ×3 (09:10→20:47)
[2019-02-22 10:00] VITALS: BP 118/56
[2019-02-22 14:00] VITALS: BP 106/53
[2019-02-22] MEDS: DONEPEZIL 5 MG TAB PO SCH (20:44)
[2019-02-22] MEDS: TAMSULOSIN 0.4 MG CAP PO SCH (20:45)
[2019-02-22] MEDS: CYANOCOBALAMIN 500 MCG TAB PO SCH (20:45)
[2019-02-22] MEDS: VITAMIN D 1,000 INTERNATIONAL UNITS TABLET PO SCH (20:45)
[2019-02-22] MEDS: DIVALPROEX 250MG *ER* TAB PO SCH (20:45)
[2019-02-22] MEDS: amLODIPine 10 MG TAB PO SCH (20:47)
[2019-02-22] MEDS: lisinopriL 5 MG TAB PO SCH (20:47)
[2019-02-23 06:00] VITALS: BP 147/65
[2019-02-23] MEDS: CETIRIZINE (ZyrTEC) 10 MG TAB PO SCH (08:03)
[2019-02-23] MEDS: ENOXAPARIN 30MG/0.3ML SYRINGE (J1650 PER 10MG) SC SCH (08:04)
[2019-02-23] MEDS: SODIUM CHLORIDE NASAL 0.65% SPRAY BTL (OCEAN) SCH ×3 (08:04→20:36)
[2019-02-23] MEDS ORDERED: VARIBAR PUDDING 40% w/v 230ML TUBE As Ordered ONE (13:20)
[2019-02-23] MEDS ORDERED: VARIBAR NECTAR 40% w/v 240ML SUSP BTL As Ordered ONE ×2 (13:21→13:22)
[2019-02-23] MEDS ORDERED: E-Z-PAQUE 96% w/w SUSP 176GM BTL As Ordered ONE (13:21)
[2019-02-23] MEDS ORDERED: BARIUM SULFATE 700 MG TABLET (E-Z-DISK) As Ordered ONE (13:21)
[2019-02-23] MEDS: TAMSULOSIN 0.4 MG CAP PO SCH (20:34)
[2019-02-23] MEDS: amLODIPine 10 MG TAB PO SCH (20:34)
[2019-02-23] MEDS: DIVALPROEX 250MG *ER* TAB PO SCH (20:34)
[2019-02-23] MEDS: CYANOCOBALAMIN 500 MCG TAB PO SCH (20:35)
[2019-02-23] MEDS: DONEPEZIL 5 MG TAB PO SCH (20:35)
[2019-02-23] MEDS: VITAMIN D 1,000 INTERNATIONAL UNITS TABLET PO SCH (20:35)
[2019-02-23] MEDS: lisinopriL 5 MG TAB PO SCH (20:35)
[2019-02-24 06:00] VITALS: BP 118/55
[2019-02-24] MEDS: SODIUM CHLORIDE NASAL 0.65% SPRAY BTL (OCEAN) SCH ×3 (07:54→20:18)
[2019-02-24] MEDS: CETIRIZINE (ZyrTEC) 10 MG TAB PO SCH (07:55)
[2019-02-24] MEDS: ENOXAPARIN 30MG/0.3ML SYRINGE (J1650 PER 10MG) SC SCH (07:55)
[2019-02-24] MEDS: amLODIPine 10 MG TAB PO SCH (20:17)
[2019-02-24] MEDS: DONEPEZIL 5 MG TAB PO SCH (20:17)
[2019-02-24] MEDS: VITAMIN D 1,000 INTERNATIONAL UNITS TABLET PO SCH (20:17)
[2019-02-24] MEDS: DIVALPROEX 250MG *ER* TAB PO SCH (20:18)
[2019-02-24] MEDS: TAMSULOSIN 0.4 MG CAP PO SCH (20:18)
[2019-02-24] MEDS: CYANOCOBALAMIN 500 MCG TAB PO SCH (20:18)
[2019-02-24] MEDS: lisinopriL 5 MG TAB PO SCH (20:18)
[2019-02-25 06:00] VITALS: BP 140/66
[2019-02-25] MEDS: ENOXAPARIN 30MG/0.3ML SYRINGE (J1650 PER 10MG) SC SCH (09:08)
[2019-02-25] MEDS: CETIRIZINE (ZyrTEC) 10 MG TAB PO SCH (09:08)
[2019-02-25] MEDS: SODIUM CHLORIDE NASAL 0.65% SPRAY BTL (OCEAN) SCH ×3 (09:09→22:58)
[2019-02-25 14:00] VITALS: BP 135/70
--- NOTE | 2019-02-25 17:41 | IPNPDOC ---
Text Note Date of Service The patient was seen on 02/25/19. NOTE Mr. Gomez is comfortable sitting up in a chair in his room. He is oriented principally to self. He is aware that he has gangrene to his toes and states that it "stings a little" but otherwise has no distress. Physical exam: Please see vital signs below HEENT: The patient has some resolving left periorbital ecchymoses without contusion, neck is otherwise supple with no adenopathy, dentition is moderately poor Cardiovascular: Regular rate and rhythm with a normal S1 and S2 Respiratory: Clear to auscultation with good air movement currently. Abdomen: Soft, nontender, nondistended, normal bowel tones. Extremities: With directed attention to the right foot. The right fifth toe exhibits dry gangrene, patient then has a hammertoe deformity to the second toe. Assessment/Plan: This is an 83-year-old male with dry gangrene to his right foot involving his toes. His family has opted to allow this to "self amputate". There is to be no further intervention. While patient is awaiting placement. His underlying conditions of chronic kidney disease, hypertension and COPD remain stable. VS,Fishbone, I+O VS, Fishbone, I+O Vital Signs Date Time Temp Pulse Resp B/P (MAP) Pulse Ox O2 Delivery O2 Flow Rate FiO2 02/25/19 14:00 97.4 75 17 135/70 (91) 96 Room Air I&O- Last 24 Hours up to 6 AM 02/25/19 06:00 Intake Total 890 ml Output Total 100 ml Balance 790 ml GEOFF JACINTO MD Feb 25, 2019 17:40
[2019-02-25] MEDS: VITAMIN D 1,000 INTERNATIONAL UNITS TABLET PO SCH (22:56)
[2019-02-25] MEDS: DONEPEZIL 5 MG TAB PO SCH (22:56)
[2019-02-25] MEDS: TAMSULOSIN 0.4 MG CAP PO SCH (22:56)
[2019-02-25] MEDS: lisinopriL 5 MG TAB PO SCH (22:57)
[2019-02-25] MEDS: amLODIPine 10 MG TAB PO SCH (22:57)
[2019-02-25] MEDS: DIVALPROEX 250MG *ER* TAB PO SCH (22:58)
[2019-02-25] MEDS: CYANOCOBALAMIN 500 MCG TAB PO SCH (22:58)
[2019-02-26 06:00] VITALS: BP 143/69
[2019-02-26 06:30] LABS: HEMATOCRIT 33.9 % (42.0-52.0); HEMOGLOBIN 10.8 g/dl (13.5-17.5); MEAN CORPUSCULAR HEMOGLOBIN 31.4 pg (27.0-33.0); MEAN CORPUSCULAR HGB CONC 31.9 g/dl (32.0-36.5); MEAN CORPUSCULAR VOLUME 98.5 fl (80.0-96.0); PLATELET COUNT, AUTOMATED 378 10^3/uL (150-450); RED BLOOD COUNT 3.44 10^6/uL (4.30-6.10); WHITE BLOOD COUNT 11.3 10^3/uL (4.0-10.0)
[2019-02-26 06:47] LABS: CALCIUM LEVEL 8.4 MG/DL (8.8-10.2); CREATININE FOR GFR 1.28 MG/DL (0.70-1.30); POTASSIUM SERUM 4.1 MEQ/L (3.5-5.1)
[2019-02-26] MEDS: SODIUM CHLORIDE NASAL 0.65% SPRAY BTL (OCEAN) SCH ×3 (08:02→20:14)
[2019-02-26] MEDS: CETIRIZINE (ZyrTEC) 10 MG TAB PO SCH (08:02)
[2019-02-26] MEDS: ENOXAPARIN 30MG/0.3ML SYRINGE (J1650 PER 10MG) SC SCH (08:02)
--- NOTE | 2019-02-26 08:43 | REP ---
Examination Requested: Cookie Swallow Reason For Exam: Reevaluate swallowing The procedure was performed by NARA Jones, under the direct supervision of Dr. Cavanaugh. The procedure was performed with Arin Mckeon from speech pathology present. 5 ml aliquots of thin, pudding, mixed fruit, soft food, and pill consistency barium was administered. Flash penetration was visualized with thin consistency barium. The detailed report of this examination will be provided by speech pathology. 2.7 minutes of fluoroscopy time was utilized for this procedure. Reviewed by NARA Montes 02/23/2019 04:25 P Electronically Signed by Sergio Cavanaugh MD 02/26/2019 08:34 A
--- NOTE | 2019-02-26 16:25 | IPNPDOC ---
Text Note Date of Service The patient was seen on 02/26/19. NOTE SUBJECTIVE: Mr. Gomez is comfortable sitting up in a chair in his room. He is oriented principally to self. Although there is a bed alarm and chair alarm attached to him. He somehow had a fall to the floor last night; he was found on the floor with a blanket over his head. He states he got entangled in the bed rails and slipped to the floor. OBJECTIVE: Physical exam: Please see vital signs below General: Patient is fully inspected at bedside. There are no signs of skin injury, contusion or abrasion and he does not complain of any site of pain. HEENT: The patient has some resolving left periorbital ecchymoses without contusion, neck is otherwise supple with no adenopathy, dentition is moderately poor Cardiovascular: Regular rate and rhythm with a normal S1 and S2 Respiratory: Clear to auscultation with good air movement currently. Abdomen: Soft, nontender, nondistended, normal bowel tones. Extremities: With directed attention to the right foot. The right fifth toe exhibits dry gangrene, patient then has a hammertoe deformity to the second toe. 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 His family has opted to allow this to "self amputate". There is to be no further intervention while patient is awaiting placement. His underlying conditions of chronic kidney disease, hypertension and COPD adriano in stable. VS,Fishbone, I+O VS, Fishbone, I+O Laboratory Tests 02/26/19 06:01 Vital Signs Date Time Temp Pulse Resp B/P (MAP) Pulse Ox O2 Delivery O2 Flow Rate FiO2 02/26/19 06:00 97.8 69 15 143/69 (93) 98 Room Air I&O- Last 24 Hours up to 6 AM 02/26/19 06:00 Intake Total 1210 ml Output Total 50 ml Balance 1160 ml GEOFF JACINTO MD Feb 26, 2019 16:25
[2019-02-26] MEDS: DONEPEZIL 5 MG TAB PO SCH (20:12)
[2019-02-26] MEDS: TAMSULOSIN 0.4 MG CAP PO SCH (20:12)
[2019-02-26] MEDS: CYANOCOBALAMIN 500 MCG TAB PO SCH (20:12)
[2019-02-26] MEDS: lisinopriL 5 MG TAB PO SCH (20:13)
[2019-02-26] MEDS: DIVALPROEX 250MG *ER* TAB PO SCH (20:13)
[2019-02-26] MEDS: VITAMIN D 1,000 INTERNATIONAL UNITS TABLET PO SCH (20:14)
[2019-02-26] MEDS: amLODIPine 10 MG TAB PO SCH (20:14)
[2019-02-27 06:00] VITALS: BP 134/61
[2019-02-27] MEDS: SODIUM CHLORIDE NASAL 0.65% SPRAY BTL (OCEAN) SCH ×3 (08:22→20:58)
[2019-02-27] MEDS: CETIRIZINE (ZyrTEC) 10 MG TAB PO SCH (08:22)
[2019-02-27] MEDS: ENOXAPARIN 30MG/0.3ML SYRINGE (J1650 PER 10MG) SC SCH (08:22)
--- NOTE | 2019-02-27 10:40 | IPNPDOC ---
Text Note Date of Service The patient was seen on 02/27/19. NOTE SUBJECTIVE: Mr. Gomez is comfortable sitting up in a chair in his room. He is oriented principally to self due to underlying dementia, but can be social. He has not had any acute events overnight. He is admitted with dry gangrene to his right foot. OBJECTIVE: Physical exam: Please see vital signs below General: Patient is fully inspected at bedside. There are no signs of skin injury, contusion or abrasion and he does not complain of any site of pain. HEENT: The patient has some resolving left periorbital ecchymoses without contusion, neck is otherwise supple with no adenopathy, dentition is moderately poor Cardiovascular: Regular rate and rhythm with a normal S1 and S2 Respiratory: Clear to auscultation with good air movement currently. Abdomen: Soft, nontender, nondistended, normal bowel tones. Extremities: With directed attention to the right foot-The right fifth toe exhibits dry gangrene, with a hammertoe deformity to the second toe. 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 His family has opted to allow this to "self amputate". There is to be no further intervention while patient is awaiting placement. His underlying conditions of chronic kidney disease, hypertension and COPD remain stable. Chronic kidney disease stage III--stable. Essential hypertension--patient remains on Norvasc and lisinopril COPD-patient does not have any exacerbation at this time. VS,Fishbone, I+O VS, Fishbone, I+O Vital Signs Date Time Temp Pulse Resp B/P (MAP) Pulse Ox O2 Delivery O2 Flow Rate FiO2 02/27/19 06:00 98.0 65 16 134/61 (85) 94 Room Air I&O- Last 24 Hours up to 6 AM 02/27/19 06:00 Intake Total 1414 ml Output Total 0 ml Balance 1414 ml GEOFF JACINTO MD Feb 27, 2019 10:40
[2019-02-27] MEDS: CYANOCOBALAMIN 500 MCG TAB PO SCH (20:56)
[2019-02-27] MEDS: DONEPEZIL 5 MG TAB PO SCH (20:56)
[2019-02-27] MEDS: DIVALPROEX 250MG *ER* TAB PO SCH (20:57)
[2019-02-27] MEDS: amLODIPine 10 MG TAB PO SCH (20:57)
[2019-02-27] MEDS: VITAMIN D 1,000 INTERNATIONAL UNITS TABLET PO SCH (20:57)
[2019-02-27] MEDS: lisinopriL 5 MG TAB PO SCH (20:58)
[2019-02-27] MEDS: TAMSULOSIN 0.4 MG CAP PO SCH (20:58)
[2019-02-28 06:00] VITALS: BP 137/75
[2019-02-28] MEDS: SODIUM CHLORIDE NASAL 0.65% SPRAY BTL (OCEAN) SCH ×3 (09:00→20:08)
[2019-02-28] MEDS: CETIRIZINE (ZyrTEC) 10 MG TAB PO SCH (09:00)
[2019-02-28] MEDS: ENOXAPARIN 30MG/0.3ML SYRINGE (J1650 PER 10MG) SC SCH (09:00)
[2019-02-28] MEDS: amLODIPine 10 MG TAB PO SCH (20:06)
[2019-02-28] MEDS: TAMSULOSIN 0.4 MG CAP PO SCH (20:07)
[2019-02-28] MEDS: CYANOCOBALAMIN 500 MCG TAB PO SCH (20:07)
[2019-02-28] MEDS: DIVALPROEX 250MG *ER* TAB PO SCH (20:07)
[2019-02-28] MEDS: VITAMIN D 1,000 INTERNATIONAL UNITS TABLET PO SCH (20:07)
[2019-02-28] MEDS: lisinopriL 5 MG TAB PO SCH (20:07)
[2019-02-28] MEDS: DONEPEZIL 5 MG TAB PO SCH (20:07)
[2019-03-01 06:00] VITALS: BP 134/64
[2019-03-01] MEDS: CETIRIZINE (ZyrTEC) 10 MG TAB PO SCH (07:58)
[2019-03-01] MEDS: ENOXAPARIN 30MG/0.3ML SYRINGE (J1650 PER 10MG) SC SCH (07:59)
[2019-03-01] MEDS: SODIUM CHLORIDE NASAL 0.65% SPRAY BTL (OCEAN) SCH ×3 (07:59→20:13)
[2019-03-01] MEDS: DIVALPROEX 250MG *ER* TAB PO SCH (20:11)
[2019-03-01] MEDS: DONEPEZIL 5 MG TAB PO SCH (20:11)
[2019-03-01] MEDS: CYANOCOBALAMIN 500 MCG TAB PO SCH (20:11)
[2019-03-01] MEDS: TAMSULOSIN 0.4 MG CAP PO SCH (20:11)
[2019-03-01] MEDS: lisinopriL 5 MG TAB PO SCH (20:11)
[2019-03-01] MEDS: amLODIPine 10 MG TAB PO SCH (20:12)
[2019-03-01] MEDS: VITAMIN D 1,000 INTERNATIONAL UNITS TABLET PO SCH (20:12)
[2019-03-02 06:00] VITALS: BP 111/52
[2019-03-02] MEDS: SODIUM CHLORIDE NASAL 0.65% SPRAY BTL (OCEAN) SCH ×3 (10:09→21:27)
[2019-03-02] MEDS: CETIRIZINE (ZyrTEC) 10 MG TAB PO SCH (10:09)
[2019-03-02] MEDS: ENOXAPARIN 30MG/0.3ML SYRINGE (J1650 PER 10MG) SC SCH (10:09)
[2019-03-02] MEDS: DONEPEZIL 5 MG TAB PO SCH (21:27)
[2019-03-02] MEDS: TAMSULOSIN 0.4 MG CAP PO SCH (21:28)
[2019-03-02] MEDS: CYANOCOBALAMIN 500 MCG TAB PO SCH (21:28)
[2019-03-02] MEDS: DIVALPROEX 250MG *ER* TAB PO SCH (21:28)
[2019-03-02] MEDS: VITAMIN D 1,000 INTERNATIONAL UNITS TABLET PO SCH (21:28)
[2019-03-02] MEDS: amLODIPine 10 MG TAB PO SCH (21:33)
[2019-03-02] MEDS: lisinopriL 5 MG TAB PO SCH (21:33)
[2019-03-03 06:00] VITALS: BP 146/69
[2019-03-03] MEDS: CETIRIZINE (ZyrTEC) 10 MG TAB PO SCH (09:04)
[2019-03-03] MEDS: SODIUM CHLORIDE NASAL 0.65% SPRAY BTL (OCEAN) SCH ×3 (09:05→21:55)
[2019-03-03] MEDS: ENOXAPARIN 30MG/0.3ML SYRINGE (J1650 PER 10MG) SC SCH (09:05)
[2019-03-03] MEDS: DIVALPROEX 250MG *ER* TAB PO SCH (21:50)
[2019-03-03] MEDS: TAMSULOSIN 0.4 MG CAP PO SCH (21:54)
[2019-03-03] MEDS: DONEPEZIL 5 MG TAB PO SCH (21:54)
[2019-03-03] MEDS: VITAMIN D 1,000 INTERNATIONAL UNITS TABLET PO SCH (21:54)
[2019-03-03] MEDS: CYANOCOBALAMIN 500 MCG TAB PO SCH (21:54)
[2019-03-03] MEDS: amLODIPine 10 MG TAB PO SCH (21:55)
[2019-03-03] MEDS: lisinopriL 5 MG TAB PO SCH (21:55)
[2019-03-04 04:24] VITALS: BP 159/67
[2019-03-04 06:00] VITALS: BP 139/65
[2019-03-04] MEDS: SODIUM CHLORIDE NASAL 0.65% SPRAY BTL (OCEAN) SCH ×3 (09:12→21:08)
[2019-03-04] MEDS: CETIRIZINE (ZyrTEC) 10 MG TAB PO SCH (09:12)
[2019-03-04] MEDS: ENOXAPARIN 30MG/0.3ML SYRINGE (J1650 PER 10MG) SC SCH (09:12)
[2019-03-04] MEDS: TAMSULOSIN 0.4 MG CAP PO SCH (21:06)
[2019-03-04] MEDS: lisinopriL 5 MG TAB PO SCH (21:06)
[2019-03-04] MEDS: DONEPEZIL 5 MG TAB PO SCH (21:07)
[2019-03-04] MEDS: VITAMIN D 1,000 INTERNATIONAL UNITS TABLET PO SCH (21:07)
[2019-03-04] MEDS: DIVALPROEX 250MG *ER* TAB PO SCH (21:07)
[2019-03-04] MEDS: CYANOCOBALAMIN 500 MCG TAB PO SCH (21:07)
[2019-03-04] MEDS: amLODIPine 10 MG TAB PO SCH (21:07)
[2019-03-05 06:00] VITALS: BP 144/71
[2019-03-05] MEDS: ENOXAPARIN 30MG/0.3ML SYRINGE (J1650 PER 10MG) SC SCH (09:19)
[2019-03-05] MEDS: SODIUM CHLORIDE NASAL 0.65% SPRAY BTL (OCEAN) SCH ×3 (09:19→20:10)
[2019-03-05] MEDS: CETIRIZINE (ZyrTEC) 10 MG TAB PO SCH (09:19)
[2019-03-05 11:30] VITALS: BP 103/42
[2019-03-05 12:42] LABS: BASO % 0.2 % (0.0-1.0); EOS % 0.1 % (0.0-3.0); HEMATOCRIT 33.8 % (42.0-52.0); HEMOGLOBIN 10.9 g/dl (13.5-17.5); LYMPH % 5.1 % (24.0-44.0); MEAN CORPUSCULAR HEMOGLOBIN 31.7 pg (27.0-33.0); MEAN CORPUSCULAR HGB CONC 32.2 g/dl (32.0-36.5); MEAN CORPUSCULAR VOLUME 98.3 fl (80.0-96.0); MONO # 1.3 10^3/uL (0.0-0.8); MONO % 7.2 % (0.0-5.0); NEUTROPHILS % 86.5 % (36.0-66.0); PLATELET COUNT, AUTOMATED 350 10^3/uL (150-450); RED BLOOD COUNT 3.44 10^6/uL (4.30-6.10); WHITE BLOOD COUNT 18.5 10^3/uL (4.0-10.0)
--- NOTE | 2019-03-05 13:03 | REP ---
Clinical: Pneumonia. Technique: AP and lateral. Comparison: 12/09/2018. Findings: Mediastinum and cardiac silhouette are stable. Diffuse chronic interstitial changes with bibasilar fibrosis. Superimposed atelectasis/infiltrates cannot be excluded. No obvious effusion. No pneumothorax. Skeletal structures demonstrate osteopenia and degenerative changes as well as suggestions for chronic vertebra plana at T6. Impression: Chronic interstitial changes. Superimposed basilar infiltrate cannot be excluded. Suspected chronic compression fracture of T6. Electronically Signed by Sergio Cavanaugh MD 03/05/2019 12:55 P
[2019-03-05 13:10] LABS: ALBUMIN 2.5 GM/DL (3.2-5.2); BILIRUBIN,TOTAL 0.7 MG/DL (0.2-1.0); CALCIUM LEVEL 8.8 MG/DL (8.8-10.2); CREATININE FOR GFR 2.02 MG/DL (0.70-1.30); GLOMERULAR FILTRATION RATE 33.7 (>35); TOTAL PROTEIN 7.5 GM/DL (6.4-8.2)
[2019-03-05] MEDS: ACETAMINOPHEN TAB 650MG DOSE (2X325MG) PO PRN (16:25)
[2019-03-05] MEDS: DIVALPROEX 250MG *ER* TAB PO SCH (20:11)
[2019-03-05] MEDS: VITAMIN D 1,000 INTERNATIONAL UNITS TABLET PO SCH (20:12)
[2019-03-05] MEDS: DONEPEZIL 5 MG TAB PO SCH (20:13)
[2019-03-05] MEDS: TAMSULOSIN 0.4 MG CAP PO SCH (20:13)
[2019-03-05] MEDS: CYANOCOBALAMIN 500 MCG TAB PO SCH (20:13)
[2019-03-05] MEDS: amLODIPine 10 MG TAB PO SCH (20:17)
[2019-03-05] MEDS: lisinopriL 5 MG TAB PO SCH (20:17)
[2019-03-06] MEDS: AZITHROMYCIN INJ 500 MG, VIAL MATE ADAPTER 1 EACH in D5W 250 ML IV SCH (01:09)
[2019-03-06 06:00] VITALS: BP 124/76
[2019-03-06 06:57] LABS: BASO % 0.3 % (0.0-1.0); EOS # 0.1 10^3/uL (0.0-0.5); EOS % 0.9 % (0.0-3.0); HEMATOCRIT 34.6 % (42.0-52.0); HEMOGLOBIN 11.2 g/dl (13.5-17.5); LYMPH # 1.3 10^3/uL (1.5-5.0); LYMPH % 10.2 % (24.0-44.0); MEAN CORPUSCULAR HEMOGLOBIN 31.5 pg (27.0-33.0); MEAN CORPUSCULAR HGB CONC 32.4 g/dl (32.0-36.5); MEAN CORPUSCULAR VOLUME 97.2 fl (80.0-96.0); MONO % 7.6 % (0.0-5.0); NEUTROPHILS # 10.5 10^3/uL (1.5-8.5); NEUTROPHILS % 80.1 % (36.0-66.0); PLATELET COUNT, AUTOMATED 336 10^3/uL (150-450); RED BLOOD COUNT 3.56 10^6/uL (4.30-6.10); WHITE BLOOD COUNT 13.1 10^3/uL (4.0-10.0)
[2019-03-06] MEDS: CETIRIZINE (ZyrTEC) 10 MG TAB PO SCH (10:01)
[2019-03-06] MEDS: ENOXAPARIN 30MG/0.3ML SYRINGE (J1650 PER 10MG) SC SCH (10:02)
[2019-03-06] MEDS: SODIUM CHLORIDE NASAL 0.65% SPRAY BTL (OCEAN) SCH ×3 (10:02→21:07)
--- NOTE | 2019-03-06 14:10 | IPNPDOC ---
Text Note Date of Service The patient was seen on 03/06/19. NOTE Subjective: No any acute events overnight. Patient stated that he has mild sh ortness of breath GENERAL APPEARANCE: Well-nourished, well-developed, not in apparent distress HEENT: Normocephalic, atraumatic. Mucous members moist and pink CARDIOVASCULAR: Regular rate and rhythm. No murmurs, rubs or gallops. Radial pulses are intact. There is no lower extremity edema LUNGS: . Diminished lung sounds, ABDOMEN: Bowel sounds are hypoactive. Abdomen is soft and nontender. MUSCULOSKELETAL: Range of motion is intact in all 4 extremities NEUROLOGICAL: Cranial nerves II-12 are grossly intact. Speech is not dysarthric Comparison: 12/09/2018. Findings: Mediastinum and cardiac silhouette are stable. Diffuse chronic interstitial changes with bibasilar fibrosis. Superimposed atelectasis/infiltrates cannot be excluded. No obvious effusion. No pneumothorax. Skeletal structures demonstrate osteopenia and degenerative changes as well as suggestions for chronic vertebra plana at T6. Impression: Chronic interstitial changes. Superimposed basilar infiltrate cannot be excluded. Suspected chronic compression fracture of T6. 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 His family has opted to allow this to "self amputate". His underlying conditions of chronic kidney disease, hypertension and COPD remain stable. Oropharyngeal dysfunction Patient was found to have oropharyngeal dysfunction. His diet was modified Aspiration pneumonia/reactive pneumonitis Patient developed some aspiration episodes yesterday with desaturation Leukocytes count was significantly elevated I started Unasyn IV and azithromycin IV Leukocytes count improvedtoday Chronic kidney disease stage III--stable. Essential hypertension--patient remains on Norvasc and lisinopril VS,Fishbone, I+O VS, Fishbone, I+O Laboratory Tests 03/06/19 06:35 Vital Signs Date Time Temp Pulse Resp B/P (MAP) Pulse Ox O2 Delivery O2 Flow Rate FiO2 03/06/19 06:00 96.7 63 18 124/76 (92) 95 Room Air I&O- Last 24 Hours up to 6 AM 03/06/19 06:00 Intake Total 1069 ml Balance 1069 ml HAMILTON AGUILAR DO Mar 06, 2019 14:09
[2019-03-06 15:13] LABS: CALCIUM LEVEL 8.4 MG/DL (8.8-10.2); CREATININE FOR GFR 1.89 MG/DL (0.70-1.30); GLOMERULAR FILTRATION RATE 36.4 (>35); POTASSIUM SERUM 3.8 MEQ/L (3.5-5.1)
[2019-03-06] MEDS: VITAMIN D 1,000 INTERNATIONAL UNITS TABLET PO SCH (21:06)
[2019-03-06] MEDS: CYANOCOBALAMIN 500 MCG TAB PO SCH (21:06)
[2019-03-06] MEDS: DONEPEZIL 5 MG TAB PO SCH (21:07)
[2019-03-06] MEDS: DIVALPROEX 250MG *ER* TAB PO SCH (21:07)
[2019-03-06] MEDS: TAMSULOSIN 0.4 MG CAP PO SCH (21:07)
[2019-03-06] MEDS: amLODIPine 10 MG TAB PO SCH (21:11)
[2019-03-06] MEDS: lisinopriL 5 MG TAB PO SCH (21:12)
[2019-03-06] MEDS: AMPICILLIN SOD/SULBACTAM SOD 3 GM in D5W MINI-BAG PLUS 100 ML IV SCH (23:23)
[2019-03-07] MEDS: AZITHROMYCIN INJ 500 MG, VIAL MATE ADAPTER 1 EACH in D5W 250 ML IV SCH (00:44)
[2019-03-07 06:00] VITALS: BP 155/66
[2019-03-07 07:12] LABS: BASO # 0.1 10^3/uL (0.0-0.2); BASO % 0.4 % (0.0-1.0); EOS # 0.2 10^3/uL (0.0-0.5); EOS % 1.5 % (0.0-3.0); HEMATOCRIT 31.3 % (42.0-52.0); HEMOGLOBIN 10.3 g/dl (13.5-17.5); LYMPH # 1.6 10^3/uL (1.5-5.0); LYMPH % 12.5 % (24.0-44.0); MEAN CORPUSCULAR HEMOGLOBIN 31.7 pg (27.0-33.0); MEAN CORPUSCULAR HGB CONC 32.9 g/dl (32.0-36.5); MEAN CORPUSCULAR VOLUME 96.3 fl (80.0-96.0); MONO # 0.9 10^3/uL (0.0-0.8); MONO % 7.6 % (0.0-5.0); NEUTROPHILS # 9.6 10^3/uL (1.5-8.5); NEUTROPHILS % 77.2 % (36.0-66.0); PLATELET COUNT, AUTOMATED 335 10^3/uL (150-450); RED BLOOD COUNT 3.25 10^6/uL (4.30-6.10); WHITE BLOOD COUNT 12.4 10^3/uL (4.0-10.0)
[2019-03-07] MEDS: CETIRIZINE (ZyrTEC) 10 MG TAB PO SCH (08:39)
[2019-03-07] MEDS: SODIUM CHLORIDE NASAL 0.65% SPRAY BTL (OCEAN) SCH ×3 (08:40→21:10)
[2019-03-07] MEDS: ENOXAPARIN 30MG/0.3ML SYRINGE (J1650 PER 10MG) SC SCH (08:48)
[2019-03-07] MEDS: AMPICILLIN SOD/SULBACTAM SOD 3 GM in D5W MINI-BAG PLUS 100 ML IV SCH (11:39)
--- NOTE | 2019-03-07 17:24 | IPNPDOC ---
Text Note Date of Service The patient was seen on 03/07/19. NOTE Subjective: No any acute events overnight, shortness of breath resolved GENERAL APPEARANCE: Well-nourished, well-developed, not in apparent distress HEENT: Normocephalic, atraumatic. Mucous members moist and pink CARDIOVASCULAR: Regular rate and rhythm. No murmurs, rubs or gallops. Radial pulses are intact. There is no lower extremity edema LUNGS: Diminished lung sounds, ABDOMEN: Bowel sounds are hypoactive. Abdomen is soft and nontender. MUSCULOSKELETAL: Range of motion is intact in all 4 extremities NEUROLOGICAL: Cranial nerves II-12 are grossly intact. 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 His family has opted to allow this to "self amputate". His underlying conditions of chronic kidney disease, hypertension and COPD remain stable. Oropharyngeal dysfunction Patient was found to have oropharyngeal dysfunction. His diet was modified ST follows him Aspiration pneumonia/reactive pneumonitis Patient developed some aspiration episodes with desaturation Leukocytes count was significantly elevated I changed his IV medications to by mouth on 03/07/19 Leukocytes count improved today Chronic kidney disease stage III--stable. Essential hypertension--patient remains on Norvasc and lisinopril VS,Fishbone, I+O VS, Fishbone, I+O Laboratory Tests 03/07/19 06:38 Vital Signs Date Time Temp Pulse Resp B/P (MAP) Pulse Ox O2 Delivery O2 Flow Rate FiO2 03/07/19 06:00 97.5 60 18 155/66 (95) 95 Room Air I&O- Last 24 Hours up to 6 AM 03/07/19 06:00 Intake Total 1292 ml Balance 1292 ml HAMILTON AGUILAR DO Mar 07, 2019 17:24
[2019-03-07] MEDS: AZITHROMYCIN 250MG TABLET PO SCH (17:48)
[2019-03-07] MEDS: VITAMIN D 1,000 INTERNATIONAL UNITS TABLET PO SCH (21:08)
[2019-03-07] MEDS: AUGMENTIN 500 MG TAB PO SCH (21:08)
[2019-03-07] MEDS: amLODIPine 10 MG TAB PO SCH (21:09)
[2019-03-07] MEDS: TAMSULOSIN 0.4 MG CAP PO SCH (21:09)
[2019-03-07] MEDS: CYANOCOBALAMIN 500 MCG TAB PO SCH (21:09)
[2019-03-07] MEDS: DONEPEZIL 5 MG TAB PO SCH (21:09)
[2019-03-07] MEDS: lisinopriL 5 MG TAB PO SCH (21:09)
[2019-03-07] MEDS: DIVALPROEX 250MG *ER* TAB PO SCH (21:20)
[2019-03-08 06:00] VITALS: BP_SYST 135; BP_SYST 147; BP_DIAS 63; BP_DIAS 67
[2019-03-08 06:27] LABS: BASO # 0.1 10^3/uL (0.0-0.2); BASO % 0.5 % (0.0-1.0); EOS # 0.2 10^3/uL (0.0-0.5); EOS % 2.2 % (0.0-3.0); HEMATOCRIT 32.6 % (42.0-52.0); HEMOGLOBIN 10.8 g/dl (13.5-17.5); LYMPH # 1.3 10^3/uL (1.5-5.0); LYMPH % 13.4 % (24.0-44.0); MEAN CORPUSCULAR HEMOGLOBIN 31.7 pg (27.0-33.0); MEAN CORPUSCULAR HGB CONC 33.1 g/dl (32.0-36.5); MEAN CORPUSCULAR VOLUME 95.6 fl (80.0-96.0); MONO # 0.7 10^3/uL (0.0-0.8); MONO % 7.1 % (0.0-5.0); NEUTROPHILS # 7.6 10^3/uL (1.5-8.5); NEUTROPHILS % 75.7 % (36.0-66.0); PLATELET COUNT, AUTOMATED 357 10^3/uL (150-450); RED BLOOD COUNT 3.41 10^6/uL (4.30-6.10)
[2019-03-08] MEDS: AZITHROMYCIN 250MG TABLET PO SCH (09:05)
[2019-03-08] MEDS: CETIRIZINE (ZyrTEC) 10 MG TAB PO SCH (09:05)
[2019-03-08] MEDS: AUGMENTIN 500 MG TAB PO SCH ×2 (09:05→20:49)
[2019-03-08] MEDS: SODIUM CHLORIDE NASAL 0.65% SPRAY BTL (OCEAN) SCH ×3 (09:06→20:55)
[2019-03-08] MEDS: ENOXAPARIN 30MG/0.3ML SYRINGE (J1650 PER 10MG) SC SCH (09:06)
[2019-03-08] MEDS: DIVALPROEX 250MG *ER* TAB PO SCH (20:54)
[2019-03-08] MEDS: VITAMIN D 1,000 INTERNATIONAL UNITS TABLET PO SCH (20:54)
[2019-03-08] MEDS: DONEPEZIL 5 MG TAB PO SCH (20:54)
[2019-03-08] MEDS: CYANOCOBALAMIN 500 MCG TAB PO SCH (20:55)
[2019-03-08] MEDS: TAMSULOSIN 0.4 MG CAP PO SCH (20:55)
[2019-03-08] MEDS: amLODIPine 10 MG TAB PO SCH (21:00)
[2019-03-08] MEDS: lisinopriL 5 MG TAB PO SCH (21:00)
[2019-03-09 06:00] VITALS: BP 153/67
[2019-03-09 06:48] LABS: BASO # 0.1 10^3/uL (0.0-0.2); BASO % 0.8 % (0.0-1.0); EOS # 0.3 10^3/uL (0.0-0.5); EOS % 2.8 % (0.0-3.0); HEMATOCRIT 33.1 % (42.0-52.0); HEMOGLOBIN 10.8 g/dl (13.5-17.5); LYMPH # 1.5 10^3/uL (1.5-5.0); LYMPH % 15.5 % (24.0-44.0); MEAN CORPUSCULAR HEMOGLOBIN 31.3 pg (27.0-33.0); MEAN CORPUSCULAR HGB CONC 32.6 g/dl (32.0-36.5); MEAN CORPUSCULAR VOLUME 95.9 fl (80.0-96.0); MONO # 0.7 10^3/uL (0.0-0.8); MONO % 7.6 % (0.0-5.0); NEUTROPHILS # 6.8 10^3/uL (1.5-8.5); PLATELET COUNT, AUTOMATED 361 10^3/uL (150-450); RED BLOOD COUNT 3.45 10^6/uL (4.30-6.10); WHITE BLOOD COUNT 9.4 10^3/uL (4.0-10.0)
[2019-03-09] MEDS: AUGMENTIN 500 MG TAB PO SCH ×2 (08:34→22:03)
[2019-03-09] MEDS: CETIRIZINE (ZyrTEC) 10 MG TAB PO SCH (08:34)
[2019-03-09] MEDS: AZITHROMYCIN 250MG TABLET PO SCH (08:34)
[2019-03-09] MEDS: SODIUM CHLORIDE NASAL 0.65% SPRAY BTL (OCEAN) SCH ×3 (08:35→22:04)
[2019-03-09] MEDS: ENOXAPARIN 30MG/0.3ML SYRINGE (J1650 PER 10MG) SC SCH (08:35)
--- NOTE | 2019-03-09 19:41 | IPNPDOC ---
Text Note Date of Service The patient was seen on 03/09/19. NOTE Subjective: -No any acute events overnight, -No shortness of breath or chest pain Interval events: -Patient does appear more lethargic and tired - concerned that he may actually be worsening despite normal vitals without a fever or hypoxemia Objective: GENERAL APPEARANCE: Well-nourished, ill appearing, not in apparent distress HEENT: Normocephalic, atraumatic. Mucous members moist and pink CARDIOVASCULAR: Regular rate and rhythm. No murmurs, rubs or gallops. Ext: Radial pulses are intact. There is no lower extremity edema. WWP LUNGS: Diminished lung sounds without kevon crackles, rhonchi or wheezing ABDOMEN: Bowel sounds are normoactive. Abdomen is soft and nontender. MUSCULOSKELETAL: Range of motion is intact in all 4 extremities NEUROLOGICAL: Cranial nerves II-12 are grossly intact. Speech is not dysarthric. Sleeping in chair, lethargic. Labs: WBC: 9.4 Hct: 10.8 Ht: 33.1 Platelets 361 Assessment: 83-year-old man with dry gangrene of his right foot involving his toes with family decision to allow them to "self amputate" as well as underlying CKD, h ypertension and COPD, who was brought in for generally feeling unwell whose course was c/b presumed aspiration PNA and is on augmentin, who is pending placement. Oropharyngeal dysfunction -Patient was found to have oropharyngeal dysfunction. His diet was modified to mechanical soft -is currently on augmentin for aspiration PNA Aspiration pneumonia/reactive pneumonitis -Patient developed some aspiration episodes with desaturation with leukocytosis and so he was started on unasyn and eventually now on augmentin, this is day 4 of antibiotics. -Looks unwell today despite labs being stable and hemodynamically stable, so will check CXR Chronic kidney disease stage III: -stable. Essential hypertension: -patient remains on Norvasc and lisinopril DVT ppx: lovenox Diet: mechanical soft VS,Fishbone, I+O VS, Fishbone, I+O Laboratory Tests 03/09/19 06:18 Vital Signs Date Time Temp Pulse Resp B/P (MAP) Pulse Ox O2 Delivery O2 Flow Rate FiO2 03/09/19 06:00 97.8 66 16 153/67 (95) 94 Room Air I&O- Last 24 Hours up to 6 AM 03/09/19 06:00 Intake Total 1320 ml Output Total 0 ml Balance 1320 ml GENNA PRIETO MD Mar 09, 2019 19:41
[2019-03-09] MEDS: VITAMIN D 1,000 INTERNATIONAL UNITS TABLET PO SCH (22:03)
[2019-03-09] MEDS: DIVALPROEX 250MG *ER* TAB PO SCH (22:03)
[2019-03-09] MEDS: DONEPEZIL 5 MG TAB PO SCH (22:03)
[2019-03-09] MEDS: TAMSULOSIN 0.4 MG CAP PO SCH (22:03)
[2019-03-09] MEDS: CYANOCOBALAMIN 500 MCG TAB PO SCH (22:03)
[2019-03-09] MEDS: lisinopriL 5 MG TAB PO SCH (22:04)
[2019-03-09] MEDS: amLODIPine 10 MG TAB PO SCH (22:04)
[2019-03-10 06:00] VITALS: BP 130/64
[2019-03-10 06:23] LABS: BASO # 0.1 10^3/uL (0.0-0.2); BASO % 0.5 % (0.0-1.0); EOS # 0.2 10^3/uL (0.0-0.5); HEMATOCRIT 33.7 % (42.0-52.0); HEMOGLOBIN 11.1 g/dl (13.5-17.5); LYMPH # 1.3 10^3/uL (1.5-5.0); LYMPH % 13.2 % (24.0-44.0); MEAN CORPUSCULAR HEMOGLOBIN 31.9 pg (27.0-33.0); MEAN CORPUSCULAR HGB CONC 32.9 g/dl (32.0-36.5); MEAN CORPUSCULAR VOLUME 96.8 fl (80.0-96.0); MONO # 0.8 10^3/uL (0.0-0.8); MONO % 7.9 % (0.0-5.0); NEUTROPHILS # 7.4 10^3/uL (1.5-8.5); NEUTROPHILS % 75.1 % (36.0-66.0); PLATELET COUNT, AUTOMATED 341 10^3/uL (150-450); RED BLOOD COUNT 3.48 10^6/uL (4.30-6.10); WHITE BLOOD COUNT 9.9 10^3/uL (4.0-10.0)
[2019-03-10 06:46] LABS: CALCIUM LEVEL 8.8 MG/DL (8.8-10.2); CREATININE FOR GFR 1.28 MG/DL (0.70-1.30); MAGNESIUM LEVEL 2.1 MG/DL (1.8-2.4); POTASSIUM SERUM 4.3 MEQ/L (3.5-5.1)
--- NOTE | 2019-03-10 08:37 | REP ---
Portable chest x-ray: Single view. History: Shortness of breath. Comparison chest x-ray is from March 05, 2019. December 09, 2018 prior chest x-ray is also reviewed. Findings: There are chronic interstitial infiltrates in the bases bilaterally. Interstitial fibrosis is suspected diffusely. These findings are essentially unchanged. No definite acute infiltrate is seen. Heart size is borderline unchanged. Electronically Signed by Jacinto Eisenberg MD 03/10/2019 08:28 A
[2019-03-10] MEDS: AZITHROMYCIN 250MG TABLET PO SCH (09:00)
[2019-03-10] MEDS: SODIUM CHLORIDE NASAL 0.65% SPRAY BTL (OCEAN) SCH ×3 (09:00→21:21)
[2019-03-10] MEDS: AUGMENTIN 500 MG TAB PO SCH ×2 (09:00→21:18)
[2019-03-10] MEDS: ENOXAPARIN 30MG/0.3ML SYRINGE (J1650 PER 10MG) SC SCH (09:00)
[2019-03-10] MEDS: CETIRIZINE (ZyrTEC) 10 MG TAB PO SCH (09:00)
--- NOTE | 2019-03-10 15:59 | IPNPDOC ---
Text Note Date of Service The patient was seen on 03/10/19. NOTE Subjective: -No any acute events overnight, -No shortness of breath or chest pain Interim events: -interval CXR looks the same, no worsening -Cr improved Objective: GENERAL APPEARANCE: Well-nourished, ill appearing, not in apparent distress HEENT: Normocephalic, atraumatic. Mucous members moist and pink CARDIOVASCULAR: Regular rate and rhythm. No murmurs, rubs or gallops. Ext: Radial pulses are intact. There is no lower extremity edema. WWP LUNGS: Diminished lung sounds without kevon crackles, rhonchi or wheezing ABDOMEN: Bowel sounds are normoactive. Abdomen is soft and nontender. MUSCULOSKELETAL: Range of motion is intact in all 4 extremities NEUROLOGICAL: Cranial nerves II-12 are grossly intact. Speech is not dysarthric. Sleeping in chair, lethargic. Labs: WBC: 9.9 Hgb: 11.1 Ht: 33.7 Platelets 341 K 4.3 Cr 1.28 Mag 2.1 Assessment: 83-year-old man with dry gangrene of his right foot involving his toes with family decision to allow them to "self amputate" as well as underlying CKD, hypertension and COPD, who was brought in for generally feeling unwell whose course was c/b presumed aspiration PNA and is on augmentin, who is pending placement. Oropharyngeal dysfunction -Patient was found to have oropharyngeal dysfunction. His diet was modified to mechanical soft -is currently on augmentin for aspiration PNA Aspiration pneumonia/reactive pneumonitis -Patient developed some aspiration episodes with desaturation with leukocytosis and so he was started on unasyn and eventually now on augmentin, this is day 5 of 7 of antibiotics Chronic kidney disease stage III: improved -stable. Essential hypertension: -patient remains on Norvasc and lisinopril DVT ppx: lovenox Diet: mechanical soft VS,Fishbone, I+O VS, Fishbone, I+O Laboratory Tests 03/10/19 06:05 Vital Signs Date Time Temp Pulse Resp B/P (MAP) Pulse Ox O2 Delivery O2 Flow Rate FiO2 03/10/19 06:00 97.0 64 20 130/64 (86) 96 Room Air I&O- Last 24 Hours up to 6 AM 03/10/19 06:00 Intake Total 960 ml Output Total 0 ml Balance 960 ml [id number],GENNA V. MD Mar 10, 2019 08:30
[2019-03-10] MEDS: TAMSULOSIN 0.4 MG CAP PO SCH (21:18)
[2019-03-10] MEDS: DONEPEZIL 5 MG TAB PO SCH (21:18)
[2019-03-10] MEDS: DIVALPROEX 250MG *ER* TAB PO SCH (21:18)
[2019-03-10] MEDS: amLODIPine 10 MG TAB PO SCH (21:21)
[2019-03-10] MEDS: CYANOCOBALAMIN 500 MCG TAB PO SCH (21:21)
[2019-03-10] MEDS: VITAMIN D 1,000 INTERNATIONAL UNITS TABLET PO SCH (21:21)
[2019-03-10] MEDS: lisinopriL 5 MG TAB PO SCH (21:21)
[2019-03-11 06:00] VITALS: BP 136/61
[2019-03-11 07:09] LABS: BASO # 0.1 10^3/uL (0.0-0.2); BASO % 0.9 % (0.0-1.0); EOS # 0.3 10^3/uL (0.0-0.5); EOS % 2.8 % (0.0-3.0); HEMOGLOBIN 10.4 g/dl (13.5-17.5); LYMPH # 1.8 10^3/uL (1.5-5.0); MEAN CORPUSCULAR HEMOGLOBIN 31.1 pg (27.0-33.0); MEAN CORPUSCULAR HGB CONC 31.5 g/dl (32.0-36.5); MEAN CORPUSCULAR VOLUME 98.8 fl (80.0-96.0); MONO # 1.1 10^3/uL (0.0-0.8); MONO % 10.2 % (0.0-5.0); NEUTROPHILS % 67.2 % (36.0-66.0); PLATELET COUNT, AUTOMATED 360 10^3/uL (150-450); RED BLOOD COUNT 3.34 10^6/uL (4.30-6.10); WHITE BLOOD COUNT 10.4 10^3/uL (4.0-10.0)
[2019-03-11 07:35] LABS: CALCIUM LEVEL 8.6 MG/DL (8.8-10.2); CREATININE FOR GFR 1.73 MG/DL (0.70-1.30); GLOMERULAR FILTRATION RATE 40.3 (>35); MAGNESIUM LEVEL 2.2 MG/DL (1.8-2.4); POTASSIUM SERUM 4.2 MEQ/L (3.5-5.1)
[2019-03-11] MEDS: AUGMENTIN 500 MG TAB PO SCH ×2 (08:29→21:58)
[2019-03-11] MEDS: SODIUM CHLORIDE NASAL 0.65% SPRAY BTL (OCEAN) SCH ×3 (08:29→21:59)
[2019-03-11] MEDS: ENOXAPARIN 30MG/0.3ML SYRINGE (J1650 PER 10MG) SC SCH (08:29)
[2019-03-11] MEDS: AZITHROMYCIN 250MG TABLET PO SCH (08:29)
[2019-03-11] MEDS: CETIRIZINE (ZyrTEC) 10 MG TAB PO SCH (08:29)
--- NOTE | 2019-03-11 15:58 | IPNPDOC ---
Text Note Date of Service The patient was seen on 03/11/19. NOTE Subjective: -No any acute events overnight, -No shortness of breath or chest pain Objective: GENERAL APPEARANCE: Well-nourished, ill appearing, not in apparent distress HEENT: Normocephalic, atraumatic, bruising over L lower eyelid. Mucous members moist and pink CARDIOVASCULAR: Regular rate and rhythm. No murmurs, rubs or gallops. Ext: Radial pulses are intact. There is no lower extremity edema. WWP LUNGS: Diminished lung sounds without kevon crackles, rhonchi or wheezing ABDOMEN: Bowel sounds are normoactive. Abdomen is soft and nontender. MUSCULOSKELETAL: Range of motion is intact in all 4 extremities NEUROLOGICAL: Cranial nerves II-12 are grossly intact. Speech is not dysarthric. Sleeping in chair, lethargic. Labs: WBC: 10.4 Hgb: 10.4 Ht: 33 K 4.2 Cr 1.73 Assessment: 83-year-old man with dry gangrene of his right foot involving his toes with family decision to allow them to "self amputate" as well as underlying CKD, hypertension and COPD, who was brought in for generally feeling unwell whose course was c/b presumed aspiration PNA and is on augmentin, who is pending placement. Oropharyngeal dysfunction -Patient was found to have oropharyngeal dysfunction. His diet was modified to mechanical soft -is currently on augmentin for aspiration PNA Aspiration pneumonia/reactive pneumonitis -Patient developed some aspiration episodes with desaturation with leukocytosis and so he was started on unasyn and eventually now on augmentin, this is day 6 of 7 of antibiotics Chronic kidney disease stage III: improved -will monitor Essential hypertension: -patient remains on Norvasc and lisinopril DVT ppx: lovenox Diet: mechanical soft Dispo: pending placement VS,Fishbone, I+O VS, Fishbone, I+O Laboratory Tests 03/11/19 06:21 Vital Signs Date Time Temp Pulse Resp B/P (MAP) Pulse Ox O2 Delivery O2 Flow Rate FiO2 03/11/19 06:00 98.2 59 15 136/61 (86) 96 Room Air l I&O- Last 24 Hours up to 6 AM 03/11/19 06:00 Intake Total 1190 ml Output Total 0 ml Balance 1190 ml GENNA PRIETO MD Mar 11, 2019 07:32
[2019-03-11] MEDS: VITAMIN D 1,000 INTERNATIONAL UNITS TABLET PO SCH (21:58)
[2019-03-11] MEDS: DIVALPROEX 250MG *ER* TAB PO SCH (21:58)
[2019-03-11] MEDS: DONEPEZIL 5 MG TAB PO SCH (21:59)
[2019-03-11] MEDS: lisinopriL 5 MG TAB PO SCH (21:59)
[2019-03-11] MEDS: amLODIPine 10 MG TAB PO SCH (21:59)
[2019-03-11] MEDS: CYANOCOBALAMIN 500 MCG TAB PO SCH (21:59)
[2019-03-11] MEDS: TAMSULOSIN 0.4 MG CAP PO SCH (21:59)
[2019-03-12 06:00] VITALS: BP 129/60
[2019-03-12 06:52] LABS: BASO # 0.1 10^3/uL (0.0-0.2); BASO % 0.6 % (0.0-1.0); EOS # 0.4 10^3/uL (0.0-0.5); HEMATOCRIT 33.6 % (42.0-52.0); LYMPH # 1.6 10^3/uL (1.5-5.0); LYMPH % 13.7 % (24.0-44.0); MEAN CORPUSCULAR HEMOGLOBIN 31.7 pg (27.0-33.0); MEAN CORPUSCULAR HGB CONC 32.7 g/dl (32.0-36.5); MEAN CORPUSCULAR VOLUME 96.8 fl (80.0-96.0); MONO % 8.5 % (0.0-5.0); NEUTROPHILS # 8.4 10^3/uL (1.5-8.5); NEUTROPHILS % 72.8 % (36.0-66.0); PLATELET COUNT, AUTOMATED 351 10^3/uL (150-450); RED BLOOD COUNT 3.47 10^6/uL (4.30-6.10); WHITE BLOOD COUNT 11.6 10^3/uL (4.0-10.0)
[2019-03-12 07:20] LABS: CALCIUM LEVEL 8.6 MG/DL (8.8-10.2); CREATININE FOR GFR 1.64 MG/DL (0.70-1.30); GLOMERULAR FILTRATION RATE 42.8 (>35); MAGNESIUM LEVEL 2.2 MG/DL (1.8-2.4); POTASSIUM SERUM 4.5 MEQ/L (3.5-5.1)
[2019-03-12] MEDS: AZITHROMYCIN 250MG TABLET PO SCH (09:03)
[2019-03-12] MEDS: ENOXAPARIN 30MG/0.3ML SYRINGE (J1650 PER 10MG) SC SCH (09:03)
[2019-03-12] MEDS: CETIRIZINE (ZyrTEC) 10 MG TAB PO SCH (09:03)
[2019-03-12] MEDS: SODIUM CHLORIDE NASAL 0.65% SPRAY BTL (OCEAN) SCH ×3 (09:03→22:26)
[2019-03-12] MEDS: AUGMENTIN 500 MG TAB PO SCH (09:04)
--- NOTE | 2019-03-12 13:26 | IPNPDOC ---
Text Note Date of Service The patient was seen on 03/12/19. NOTE Subjective: -No any acute events overnight, -No shortness of breath or chest pain Objective: GENERAL APPEARANCE: Well-nourished, ill appearing, not in apparent distress HEENT: Normocephalic, atraumatic, bruising over L lower eyelid. Mucous members moist and pink CARDIOVASCULAR: Regular rate and rhythm. No murmurs, rubs or gallops. Ext: Radial pulses are intact. There is no lower extremity edema. WWP LUNGS: Diminished lung sounds without kevon crackles, rhonchi or wheezing ABDOMEN: Bowel sounds are normoactive. Abdomen is soft and nontender. MUSCULOSKELETAL: Range of motion is intact in all 4 extremities NEUROLOGICAL: Cranial nerves II-12 are grossly intact. Speech is not dysarthric. Sleeping in chair, lethargic. 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 Oropharyngeal dysfunction -Patient was found to have oropharyngeal dysfunction. His diet was modified to mechanical soft -is currently on augmentin for aspiration PNA Aspiration pneumonia/reactive pneumonitis -Patient developed some aspiration episodes with desaturation with leukocytosis and so he was started on unasyn and eventually now on augmentin, this is day 6 of 7 of antibiotics Chronic kidney disease stage III: improved -will monitor Essential hypertension: -patient remains on Norvasc and lisinopril DVT ppx: lovenox Diet: mechanical soft Dispo: pending placement VS,Fishbone, I+O VS, Fishbone, I+O Laboratory Tests 03/12/19 06:25 Vital Signs Date Time Temp Pulse Resp B/P (MAP) Pulse Ox O2 Delivery O2 Flow Rate FiO2 03/12/19 06:00 97.6 71 16 129/60 (83) 96 Room Air I&O- Last 24 Hours up to 6 AM 03/12/19 05:59 Intake Total 360 ml Output Total 0 ml Balance 360 ml GENNA PRIETO MD Mar 12, 2019 09:18
[2019-03-12] MEDS: amLODIPine 10 MG TAB PO SCH (22:24)
[2019-03-12] MEDS: VITAMIN D 1,000 INTERNATIONAL UNITS TABLET PO SCH (22:24)
[2019-03-12] MEDS: TAMSULOSIN 0.4 MG CAP PO SCH (22:25)
[2019-03-12] MEDS: CYANOCOBALAMIN 500 MCG TAB PO SCH (22:25)
[2019-03-12] MEDS: DONEPEZIL 5 MG TAB PO SCH (22:25)
[2019-03-12] MEDS: DIVALPROEX 250MG *ER* TAB PO SCH (22:25)
[2019-03-12] MEDS: lisinopriL 5 MG TAB PO SCH (22:25)
[2019-03-13 06:00] VITALS: BP 145/66
[2019-03-13] MEDS: CETIRIZINE (ZyrTEC) 10 MG TAB PO SCH (10:02)
[2019-03-13] MEDS: SODIUM CHLORIDE NASAL 0.65% SPRAY BTL (OCEAN) SCH ×3 (10:03→20:57)
[2019-03-13] MEDS: ENOXAPARIN 30MG/0.3ML SYRINGE (J1650 PER 10MG) SC SCH (10:03)
[2019-03-13] MEDS: AZITHROMYCIN 250MG TABLET PO SCH (10:03)
--- NOTE | 2019-03-13 14:20 | IPNPDOC ---
Text Note Date of Service The patient was seen on 03/13/19. NOTE Subjective: -No any acute events overnight, -No shortness of breath or chest pain Objective: GENERAL APPEARANCE: Well-nourished, ill appearing, not in apparent distress HEENT: Normocephalic, atraumatic, bruising over L lower eyelid. Mucous members moist and pink CARDIOVASCULAR: Regular rate and rhythm. No murmurs, rubs or gallops. Ext: Radial pulses are intact. There is no lower extremity edema. WWP LUNGS: Diminished lung sounds without kevon crackles, rhonchi or wheezing ABDOMEN: Bowel sounds are normoactive. Abdomen is soft and nontender. MUSCULOSKELETAL: Range of motion is intact in all 4 extremities NEUROLOGICAL: Cranial nerves II-12 are grossly intact. Speech is not dysarthric. Sleeping in chair, lethargic. Labs: No labs today. Ordered for tomorrow and then Q72H. 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 Oropharyngeal dysfunction -Patient was found to have oropharyngeal dysfunction. His diet was modified to mechanical soft Aspiration pneumonia/reactive pneumonitis -Patient developed some aspiration episodes with desaturation with leukocytosis and so he was started on unasyn and eventually now on augmentin, completed 7d of antibiotics. Chronic kidney disease stage III: improved -will monitor Essential hypertension: -patient remains on Norvasc and lisinopril DVT ppx: lovenox Diet: mechanical soft Dispo: switched to [facility], pending placement VS,Fishbone, I+O VS, Fishbone, I+O Vital Signs Date Time Temp Pulse Resp B/P (MAP) Pulse Ox O2 Delivery O2 Flow Rate FiO2 03/13/19 06:00 96.8 73 18 145/66 (92) 96 Room Air I&O- Last 24 Hours up to 6 AM 03/13/19 06:00 Intake Total 1160 ml Output Total 0 ml Balance 1160 ml GENNA PRIETO MD Mar 13, 2019 14:20
[2019-03-13] MEDS: DONEPEZIL 5 MG TAB PO SCH (20:53)
[2019-03-13] MEDS: VITAMIN D 1,000 INTERNATIONAL UNITS TABLET PO SCH (20:53)
[2019-03-13] MEDS: DIVALPROEX 250MG *ER* TAB PO SCH (20:56)
[2019-03-13] MEDS: amLODIPine 10 MG TAB PO SCH ×2 (20:56→21:15)
[2019-03-13] MEDS: TAMSULOSIN 0.4 MG CAP PO SCH (20:56)
[2019-03-13] MEDS: CYANOCOBALAMIN 500 MCG TAB PO SCH (20:57)
[2019-03-13] MEDS: lisinopriL 5 MG TAB PO SCH (21:14)
[2019-03-14 06:00] VITALS: BP 152/67
[2019-03-14 06:15] LABS: HEMATOCRIT 33.6 % (42.0-52.0); HEMOGLOBIN 10.9 g/dl (13.5-17.5); MEAN CORPUSCULAR HEMOGLOBIN 31.7 pg (27.0-33.0); MEAN CORPUSCULAR HGB CONC 32.4 g/dl (32.0-36.5); MEAN CORPUSCULAR VOLUME 97.7 fl (80.0-96.0); PLATELET COUNT, AUTOMATED 342 10^3/uL (150-450); RED BLOOD COUNT 3.44 10^6/uL (4.30-6.10); WHITE BLOOD COUNT 9.5 10^3/uL (4.0-10.0)
[2019-03-14 06:42] LABS: CALCIUM LEVEL 8.9 MG/DL (8.8-10.2); CREATININE FOR GFR 1.36 MG/DL (0.70-1.30); GLOMERULAR FILTRATION RATE 53.1 (>35); POTASSIUM SERUM 4.2 MEQ/L (3.5-5.1)
[2019-03-14] MEDS: ENOXAPARIN 30MG/0.3ML SYRINGE (J1650 PER 10MG) SC SCH (09:42)
[2019-03-14] MEDS: CETIRIZINE (ZyrTEC) 10 MG TAB PO SCH (09:42)
[2019-03-14] MEDS: SODIUM CHLORIDE NASAL 0.65% SPRAY BTL (OCEAN) SCH ×3 (09:42→21:46)
[2019-03-14] MEDS: TAMSULOSIN 0.4 MG CAP PO SCH (21:46)
[2019-03-14] MEDS: DIVALPROEX 250MG *ER* TAB PO SCH (21:46)
[2019-03-14] MEDS: VITAMIN D 1,000 INTERNATIONAL UNITS TABLET PO SCH (21:46)
[2019-03-14] MEDS: CYANOCOBALAMIN 500 MCG TAB PO SCH (21:46)
[2019-03-14] MEDS: DONEPEZIL 5 MG TAB PO SCH (21:46)
[2019-03-14] MEDS: amLODIPine 10 MG TAB PO SCH (21:49)
[2019-03-14] MEDS: lisinopriL 5 MG TAB PO SCH (21:49)
[2019-03-15 06:00] VITALS: BP 130/60
[2019-03-15] MEDS: CETIRIZINE (ZyrTEC) 10 MG TAB PO SCH (09:35)
[2019-03-15] MEDS: SODIUM CHLORIDE NASAL 0.65% SPRAY BTL (OCEAN) SCH ×3 (09:35→22:44)
[2019-03-15] MEDS: ENOXAPARIN 30MG/0.3ML SYRINGE (J1650 PER 10MG) SC SCH (09:36)
[2019-03-15] MEDS: DONEPEZIL 5 MG TAB PO SCH (22:43)
[2019-03-15] MEDS: TAMSULOSIN 0.4 MG CAP PO SCH (22:43)
[2019-03-15] MEDS: DIVALPROEX 250MG *ER* TAB PO SCH (22:43)
[2019-03-15] MEDS: VITAMIN D 1,000 INTERNATIONAL UNITS TABLET PO SCH (22:43)
[2019-03-15] MEDS: CYANOCOBALAMIN 500 MCG TAB PO SCH (22:43)
[2019-03-15] MEDS: lisinopriL 5 MG TAB PO SCH (22:44)
[2019-03-15] MEDS: amLODIPine 10 MG TAB PO SCH (22:44)
[2019-03-16 06:00] VITALS: BP 139/59
[2019-03-16] MEDS: CETIRIZINE (ZyrTEC) 10 MG TAB PO SCH (08:54)
[2019-03-16] MEDS: ENOXAPARIN 30MG/0.3ML SYRINGE (J1650 PER 10MG) SC SCH (08:54)
[2019-03-16] MEDS: SODIUM CHLORIDE NASAL 0.65% SPRAY BTL (OCEAN) SCH ×3 (08:54→22:10)
[2019-03-16] MEDS: DONEPEZIL 5 MG TAB PO SCH (22:09)
[2019-03-16] MEDS: CYANOCOBALAMIN 500 MCG TAB PO SCH (22:10)
[2019-03-16] MEDS: TAMSULOSIN 0.4 MG CAP PO SCH (22:10)
[2019-03-16] MEDS: VITAMIN D 1,000 INTERNATIONAL UNITS TABLET PO SCH (22:10)
[2019-03-16] MEDS: DIVALPROEX 250MG *ER* TAB PO SCH (22:10)
[2019-03-16] MEDS: amLODIPine 10 MG TAB PO SCH (22:11)
[2019-03-16] MEDS: lisinopriL 5 MG TAB PO SCH (22:11)
[2019-03-17 06:00] VITALS: BP 133/79
[2019-03-17 06:54] LABS: HEMATOCRIT 34.4 % (42.0-52.0); HEMOGLOBIN 11.1 g/dl (13.5-17.5); MEAN CORPUSCULAR HEMOGLOBIN 31.5 pg (27.0-33.0); MEAN CORPUSCULAR HGB CONC 32.3 g/dl (32.0-36.5); MEAN CORPUSCULAR VOLUME 97.7 fl (80.0-96.0); PLATELET COUNT, AUTOMATED 345 10^3/uL (150-450); RED BLOOD COUNT 3.52 10^6/uL (4.30-6.10); WHITE BLOOD COUNT 11.6 10^3/uL (4.0-10.0)
[2019-03-17 07:29] LABS: CALCIUM LEVEL 8.8 MG/DL (8.8-10.2); CREATININE FOR GFR 1.5 MG/DL (0.70-1.30); GLOMERULAR FILTRATION RATE 47.5 (>35); POTASSIUM SERUM 4.3 MEQ/L (3.5-5.1)
[2019-03-17] MEDS: ENOXAPARIN 30MG/0.3ML SYRINGE (J1650 PER 10MG) SC SCH (09:02)
[2019-03-17] MEDS: CETIRIZINE (ZyrTEC) 10 MG TAB PO SCH (09:02)
[2019-03-17] MEDS: SODIUM CHLORIDE NASAL 0.65% SPRAY BTL (OCEAN) SCH ×3 (09:02→21:33)
[2019-03-17] MEDS: DONEPEZIL 5 MG TAB PO SCH (21:31)
[2019-03-17] MEDS: CYANOCOBALAMIN 500 MCG TAB PO SCH (21:32)
[2019-03-17] MEDS: DIVALPROEX 250MG *ER* TAB PO SCH (21:32)
[2019-03-17] MEDS: VITAMIN D 1,000 INTERNATIONAL UNITS TABLET PO SCH (21:32)
[2019-03-17] MEDS: TAMSULOSIN 0.4 MG CAP PO SCH (21:32)
[2019-03-17] MEDS: amLODIPine 10 MG TAB PO SCH (21:34)
[2019-03-17] MEDS: lisinopriL 5 MG TAB PO SCH (21:35)
[2019-03-18 06:00] VITALS: BP 135/65
[2019-03-18] MEDS: ENOXAPARIN 30MG/0.3ML SYRINGE (J1650 PER 10MG) SC SCH (08:58)
[2019-03-18] MEDS: CETIRIZINE (ZyrTEC) 10 MG TAB PO SCH (08:58)
[2019-03-18] MEDS: SODIUM CHLORIDE NASAL 0.65% SPRAY BTL (OCEAN) SCH (08:58)
[2019-03-18] MEDS: CYANOCOBALAMIN 500 MCG TAB PO SCH (21:01)
[2019-03-18] MEDS: TAMSULOSIN 0.4 MG CAP PO SCH (21:01)
[2019-03-18] MEDS: VITAMIN D 1,000 INTERNATIONAL UNITS TABLET PO SCH (21:01)
[2019-03-18] MEDS: lisinopriL 5 MG TAB PO SCH (21:01)
[2019-03-18] MEDS: amLODIPine 10 MG TAB PO SCH (21:01)
[2019-03-18] MEDS: DONEPEZIL 5 MG TAB PO SCH (21:01)
[2019-03-18] MEDS: DIVALPROEX 250MG *ER* TAB PO SCH (21:02)
[2019-03-19 06:00] VITALS: BP 136/58
[2019-03-19] MEDS: ENOXAPARIN 30MG/0.3ML SYRINGE (J1650 PER 10MG) SC SCH (09:08)
[2019-03-19] MEDS: CETIRIZINE (ZyrTEC) 10 MG TAB PO SCH (09:08)
[2019-03-19] MEDS: DIVALPROEX 250MG *ER* TAB PO SCH (21:32)
[2019-03-19] MEDS: VITAMIN D 1,000 INTERNATIONAL UNITS TABLET PO SCH (21:32)
[2019-03-19] MEDS: TAMSULOSIN 0.4 MG CAP PO SCH (21:32)
[2019-03-19] MEDS: DONEPEZIL 5 MG TAB PO SCH (21:32)
[2019-03-19] MEDS: CYANOCOBALAMIN 500 MCG TAB PO SCH (21:35)
[2019-03-19] MEDS: lisinopriL 5 MG TAB PO SCH (21:35)
[2019-03-19] MEDS: amLODIPine 10 MG TAB PO SCH (21:35)
[2019-03-20 06:26] LABS: HEMATOCRIT 31.5 % (42.0-52.0); HEMOGLOBIN 10.3 g/dl (13.5-17.5); MEAN CORPUSCULAR HEMOGLOBIN 31.6 pg (27.0-33.0); MEAN CORPUSCULAR HGB CONC 32.7 g/dl (32.0-36.5); MEAN CORPUSCULAR VOLUME 96.6 fl (80.0-96.0); PLATELET COUNT, AUTOMATED 376 10^3/uL (150-450); RED BLOOD COUNT 3.26 10^6/uL (4.30-6.10); WHITE BLOOD COUNT 10.8 10^3/uL (4.0-10.0)
[2019-03-20 06:51] LABS: CALCIUM LEVEL 8.3 MG/DL (8.8-10.2); CREATININE FOR GFR 1.33 MG/DL (0.70-1.30); GLOMERULAR FILTRATION RATE 54.5 (>35); POTASSIUM SERUM 4.2 MEQ/L (3.5-5.1)
--- NOTE | 2019-03-20 08:32 | IPNPDOC ---
Text Note Date of Service The patient was seen on 03/20/19. NOTE Subjective: Patient was seen and examined at the bedside. Patient was seen sitting up in a chair at the bedside. Patient denies any chest pain, shortness of breath, palpitations. Denies nausea, vomiting, abdominal pain or diarrhea. Objective: Vitals (See below) General: Lying in bed, no acute distress, comfortable, Awake / Alert HEENT: NC, AT CVS: +S1S2 Lungs: Fair air entry b/l, -w/r/r Abdomen: Soft, ND, NT Extremities: - Edema, - Calf tenderness Assessment and plan: Patient is an 83-year-old male with dry gangrene of his right foot involving his toes with family decision to allow them to "self amputate" as well as underlying CKD, hypertension and COPD, who was brought in for generally fe eling unwell whose course was c/b presumed aspiration PNA s/p antibiotic course, who is pending placement. Dry gangrene of right 5th toe - Was evaluated by Podiatry; Dr. Murphy - Family has decided that they will allow self-amputation; surgery was deferred Oropharyngeal dysfunction - Patient was found to have oropharyngeal dysfunction - Speech therapy has evaluated; c/w modified to mechanical soft Aspiration pneumonia / Reactive pneumonitis - Patient developed some aspiration episodes with desaturation with leukocytosis - s/p Unasyn; s/p Augmentin - Completed 7 day course CKD3 - Cr appears to be at baseline HTN - BP appears well controlled - c/w Amlodipine and Lisinopril Seizure disorder - c/w Divalproex Dementia - c/w Donepezil BPH - c/w Tamsulosin Insomnia - c/w Trazodone Vitamin D deficiency - c/w Supplementation DVT prophylaxis - c/w Lovenox Disposition: - Currently is ALC status - Awaiting placement VS,Fishbone, I+O VS, Fishbone, I+O Laboratory Tests 03/20/19 06:03 Vital Signs Date Time Temp Pulse Resp B/P (MAP) Pulse Ox O2 Delivery O2 Flow Rate FiO2 03/19/19 21:35 60 134/57 03/19/19 06:00 98.1 20 96 Room Air I&O- Last 24 Hours up to 6 AM 03/20/19 06:00 Intake Total 840 ml Output Total 0 ml Balance 840 ml ACUÑA,VIJESH MD Mar 20, 2019 08:32
[2019-03-20] MEDS: CETIRIZINE (ZyrTEC) 10 MG TAB PO SCH (08:38)
[2019-03-20] MEDS: ENOXAPARIN 30MG/0.3ML SYRINGE (J1650 PER 10MG) SC SCH (08:38)
[2019-03-20] MEDS: DONEPEZIL 5 MG TAB PO SCH (22:14)
[2019-03-20] MEDS: amLODIPine 10 MG TAB PO SCH (22:14)
[2019-03-20] MEDS: lisinopriL 5 MG TAB PO SCH (22:14)
[2019-03-20] MEDS: VITAMIN D 1,000 INTERNATIONAL UNITS TABLET PO SCH (22:15)
[2019-03-20] MEDS: DIVALPROEX 250MG *ER* TAB PO SCH (22:15)
[2019-03-20] MEDS: CYANOCOBALAMIN 500 MCG TAB PO SCH (22:15)
[2019-03-20] MEDS: TAMSULOSIN 0.4 MG CAP PO SCH (22:15)
[2019-03-21] MEDS: amLODIPine 10 MG TAB PO SCH ×2 (00:46→22:33)
[2019-03-21] MEDS: lisinopriL 5 MG TAB PO SCH ×2 (00:46→22:33)
[2019-03-21 06:00] VITALS: BP 133/89
[2019-03-21] MEDS: ENOXAPARIN 30MG/0.3ML SYRINGE (J1650 PER 10MG) SC SCH (09:20)
[2019-03-21] MEDS: CETIRIZINE (ZyrTEC) 10 MG TAB PO SCH (09:20)
[2019-03-21 14:00] VITALS: BP 115/63
[2019-03-21 22:00] VITALS: BP 137/58
[2019-03-21] MEDS: DIVALPROEX 250MG *ER* TAB PO SCH (22:21)
[2019-03-21] MEDS: TAMSULOSIN 0.4 MG CAP PO SCH (22:21)
[2019-03-21] MEDS: DONEPEZIL 5 MG TAB PO SCH (22:21)
[2019-03-21] MEDS: CYANOCOBALAMIN 500 MCG TAB PO SCH (22:21)
[2019-03-21] MEDS: VITAMIN D 1,000 INTERNATIONAL UNITS TABLET PO SCH (22:22)
[2019-03-22] VITALS: BP 137/58
[2019-03-22 06:00] VITALS: BP 140/56
[2019-03-22] MEDS: ENOXAPARIN 30MG/0.3ML SYRINGE (J1650 PER 10MG) SC SCH ×2 (09:00→09:13)
[2019-03-22] MEDS: CETIRIZINE (ZyrTEC) 10 MG TAB PO SCH (09:12)
[2019-03-22] MEDS: DONEPEZIL 5 MG TAB PO SCH (21:15)
[2019-03-22] MEDS: VITAMIN D 1,000 INTERNATIONAL UNITS TABLET PO SCH (21:16)
[2019-03-22] MEDS: CYANOCOBALAMIN 500 MCG TAB PO SCH (21:16)
[2019-03-22] MEDS: amLODIPine 10 MG TAB PO SCH (21:16)
[2019-03-22] MEDS: lisinopriL 5 MG TAB PO SCH (21:16)
[2019-03-22] MEDS: TAMSULOSIN 0.4 MG CAP PO SCH (21:16)
[2019-03-22] MEDS: DIVALPROEX 250MG *ER* TAB PO SCH (21:16)
[2019-03-23 06:00] VITALS: BP 119/57
[2019-03-23] MEDS: ENOXAPARIN 30MG/0.3ML SYRINGE (J1650 PER 10MG) SC SCH (09:54)
[2019-03-23] MEDS: CETIRIZINE (ZyrTEC) 10 MG TAB PO SCH (09:54)
[2019-03-23] MEDS: VITAMIN D 1,000 INTERNATIONAL UNITS TABLET PO SCH (21:38)
[2019-03-23] MEDS: CYANOCOBALAMIN 500 MCG TAB PO SCH (21:40)
[2019-03-23] MEDS: lisinopriL 5 MG TAB PO SCH (21:40)
[2019-03-23] MEDS: DONEPEZIL 5 MG TAB PO SCH (21:40)
[2019-03-23] MEDS: TAMSULOSIN 0.4 MG CAP PO SCH (21:40)
[2019-03-23] MEDS: DIVALPROEX 250MG *ER* TAB PO SCH (21:40)
[2019-03-23] MEDS: amLODIPine 10 MG TAB PO SCH (21:41)
[2019-03-24 06:00] VITALS: BP 140/61
[2019-03-24] MEDS: ENOXAPARIN 30MG/0.3ML SYRINGE (J1650 PER 10MG) SC SCH (09:00)
[2019-03-24] MEDS: CETIRIZINE (ZyrTEC) 10 MG TAB PO SCH (09:00)
[2019-03-24] MEDS: ACETAMINOPHEN TAB 650MG DOSE (2X325MG) PO PRN (12:44)
[2019-03-24] MEDS: CYANOCOBALAMIN 500 MCG TAB PO SCH (20:57)
[2019-03-24] MEDS: VITAMIN D 1,000 INTERNATIONAL UNITS TABLET PO SCH (20:57)
[2019-03-24] MEDS: lisinopriL 5 MG TAB PO SCH (20:58)
[2019-03-24] MEDS: DONEPEZIL 5 MG TAB PO SCH (20:58)
[2019-03-24] MEDS: amLODIPine 10 MG TAB PO SCH (20:59)
[2019-03-24] MEDS: DIVALPROEX 250MG *ER* TAB PO SCH (20:59)
[2019-03-24] MEDS: TAMSULOSIN 0.4 MG CAP PO SCH (21:00)
[2019-03-24 22:00] VITALS: BP 118/59
[2019-03-25 06:00] VITALS: BP 150/59
[2019-03-25] MEDS: CETIRIZINE (ZyrTEC) 10 MG TAB PO SCH (08:46)
[2019-03-25] MEDS: ENOXAPARIN 30MG/0.3ML SYRINGE (J1650 PER 10MG) SC SCH (08:46)
[2019-03-25] MEDS: TAMSULOSIN 0.4 MG CAP PO SCH (21:13)
[2019-03-25] MEDS: DIVALPROEX 250MG *ER* TAB PO SCH (21:13)
[2019-03-25] MEDS: VITAMIN D 1,000 INTERNATIONAL UNITS TABLET PO SCH (21:13)
[2019-03-25] MEDS: DONEPEZIL 5 MG TAB PO SCH (21:14)
[2019-03-25] MEDS: amLODIPine 10 MG TAB PO SCH (21:14)
[2019-03-25] MEDS: lisinopriL 5 MG TAB PO SCH (21:14)
[2019-03-25] MEDS: CYANOCOBALAMIN 500 MCG TAB PO SCH (21:14)
[2019-03-26 06:00] VITALS: BP 121/52
[2019-03-26] MEDS: CETIRIZINE (ZyrTEC) 10 MG TAB PO SCH (08:16)
[2019-03-26] MEDS: ENOXAPARIN 30MG/0.3ML SYRINGE (J1650 PER 10MG) SC SCH (08:16)
[2019-03-26 20:25] VITALS: BP 158/69
[2019-03-26] MEDS: CYANOCOBALAMIN 500 MCG TAB PO SCH (20:29)
[2019-03-26] MEDS: VITAMIN D 1,000 INTERNATIONAL UNITS TABLET PO SCH (20:29)
[2019-03-26] MEDS: TAMSULOSIN 0.4 MG CAP PO SCH (20:29)
[2019-03-26] MEDS: DIVALPROEX 250MG *ER* TAB PO SCH (20:29)
[2019-03-26] MEDS: DONEPEZIL 5 MG TAB PO SCH (20:29)
[2019-03-26] MEDS: lisinopriL 5 MG TAB PO SCH (20:30)
[2019-03-26] MEDS: amLODIPine 10 MG TAB PO SCH (20:30)
[2019-03-27 06:00] VITALS: BP 147/66
[2019-03-27] MEDS: ENOXAPARIN 30MG/0.3ML SYRINGE (J1650 PER 10MG) SC SCH (08:47)
[2019-03-27] MEDS: CETIRIZINE (ZyrTEC) 10 MG TAB PO SCH (08:47)
[2019-03-27 20:43] VITALS: BP 151/72
[2019-03-27] MEDS: lisinopriL 5 MG TAB PO SCH (20:44)
[2019-03-27] MEDS: amLODIPine 10 MG TAB PO SCH (20:44)
[2019-03-27] MEDS: DONEPEZIL 5 MG TAB PO SCH (20:45)
[2019-03-27] MEDS: DIVALPROEX 250MG *ER* TAB PO SCH (20:46)
[2019-03-27] MEDS: CYANOCOBALAMIN 500 MCG TAB PO SCH (20:46)
[2019-03-27] MEDS: TAMSULOSIN 0.4 MG CAP PO SCH (20:46)
[2019-03-27] MEDS: VITAMIN D 1,000 INTERNATIONAL UNITS TABLET PO SCH (20:46)
[2019-03-28 06:00] VITALS: BP 137/56
[2019-03-28] MEDS: ENOXAPARIN 30MG/0.3ML SYRINGE (J1650 PER 10MG) SC SCH (09:41)
[2019-03-28] MEDS: CETIRIZINE (ZyrTEC) 10 MG TAB PO SCH (09:41)
[2019-03-28] MEDS: DONEPEZIL 5 MG TAB PO SCH (20:12)
[2019-03-28] MEDS: TAMSULOSIN 0.4 MG CAP PO SCH (20:12)
[2019-03-28] MEDS: VITAMIN D 1,000 INTERNATIONAL UNITS TABLET PO SCH (20:12)
[2019-03-28] MEDS: DIVALPROEX 250MG *ER* TAB PO SCH (20:12)
[2019-03-28] MEDS: CYANOCOBALAMIN 500 MCG TAB PO SCH (20:12)
[2019-03-28] MEDS: lisinopriL 5 MG TAB PO SCH (20:13)
[2019-03-28] MEDS: amLODIPine 10 MG TAB PO SCH (20:13)
[2019-03-28 20:15] VITALS: BP 146/57
[2019-03-29 06:00] VITALS: BP 144/58
[2019-03-29] MEDS: CETIRIZINE (ZyrTEC) 10 MG TAB PO SCH (08:55)
[2019-03-29] MEDS: ENOXAPARIN 30MG/0.3ML SYRINGE (J1650 PER 10MG) SC SCH (08:55)
[2019-03-29] MEDS: VITAMIN D 1,000 INTERNATIONAL UNITS TABLET PO SCH (20:41)
[2019-03-29] MEDS: TAMSULOSIN 0.4 MG CAP PO SCH (20:41)
[2019-03-29] MEDS: CYANOCOBALAMIN 500 MCG TAB PO SCH (20:42)
[2019-03-29] MEDS: DONEPEZIL 5 MG TAB PO SCH (20:42)
[2019-03-29] MEDS: amLODIPine 10 MG TAB PO SCH (20:42)
[2019-03-29] MEDS: lisinopriL 5 MG TAB PO SCH (20:42)
[2019-03-29] MEDS: DIVALPROEX 250MG *ER* TAB PO SCH (20:42)
[2019-03-30 06:00] VITALS: BP 149/62
[2019-03-30] MEDS: CETIRIZINE (ZyrTEC) 10 MG TAB PO SCH (08:56)
[2019-03-30] MEDS: ENOXAPARIN 30MG/0.3ML SYRINGE (J1650 PER 10MG) SC SCH (08:57)
[2019-03-30] MEDS: CYANOCOBALAMIN 500 MCG TAB PO SCH (21:06)
[2019-03-30] MEDS: DONEPEZIL 5 MG TAB PO SCH (21:06)
[2019-03-30] MEDS: TAMSULOSIN 0.4 MG CAP PO SCH (21:06)
[2019-03-30] MEDS: VITAMIN D 1,000 INTERNATIONAL UNITS TABLET PO SCH (21:06)
[2019-03-30] MEDS: DIVALPROEX 250MG *ER* TAB PO SCH (21:06)
[2019-03-30] MEDS: lisinopriL 5 MG TAB PO SCH (21:07)
[2019-03-30] MEDS: amLODIPine 10 MG TAB PO SCH (21:07)
[2019-03-31 06:00] VITALS: BP 132/66
[2019-03-31] MEDS: ENOXAPARIN 30MG/0.3ML SYRINGE (J1650 PER 10MG) SC SCH (08:29)
[2019-03-31] MEDS: CETIRIZINE (ZyrTEC) 10 MG TAB PO SCH (08:29)
[2019-03-31] MEDS: lisinopriL 5 MG TAB PO SCH (21:00)
[2019-03-31] MEDS: amLODIPine 10 MG TAB PO SCH (21:00)
[2019-03-31] MEDS: VITAMIN D 1,000 INTERNATIONAL UNITS TABLET PO SCH (21:46)
[2019-03-31] MEDS: CYANOCOBALAMIN 500 MCG TAB PO SCH (21:47)
[2019-03-31] MEDS: DIVALPROEX 250MG *ER* TAB PO SCH (21:47)
[2019-03-31] MEDS: DONEPEZIL 5 MG TAB PO SCH (21:47)
[2019-03-31] MEDS: TAMSULOSIN 0.4 MG CAP PO SCH (21:47)
[2019-04-01 06:00] VITALS: BP 127/66
[2019-04-01] MEDS: ENOXAPARIN 30MG/0.3ML SYRINGE (J1650 PER 10MG) SC SCH (08:59)
[2019-04-01] MEDS: CETIRIZINE (ZyrTEC) 10 MG TAB PO SCH (08:59)
[2019-04-01 14:00] VITALS: BP 118/56
[2019-04-01] MEDS: DONEPEZIL 5 MG TAB PO SCH (20:07)
[2019-04-01] MEDS: TAMSULOSIN 0.4 MG CAP PO SCH (20:07)
[2019-04-01] MEDS: CYANOCOBALAMIN 500 MCG TAB PO SCH (20:07)
[2019-04-01] MEDS: lisinopriL 5 MG TAB PO SCH (20:08)
[2019-04-01] MEDS: DIVALPROEX 250MG *ER* TAB PO SCH (20:08)
[2019-04-01] MEDS: VITAMIN D 1,000 INTERNATIONAL UNITS TABLET PO SCH (20:09)
[2019-04-01] MEDS: amLODIPine 10 MG TAB PO SCH (20:09)
[2019-04-02 06:00] VITALS: BP_SYST 119; BP_DIAS 66; BP_DIAS 99
[2019-04-02] MEDS: ENOXAPARIN 30MG/0.3ML SYRINGE (J1650 PER 10MG) SC SCH (08:20)
[2019-04-02] MEDS: CETIRIZINE (ZyrTEC) 10 MG TAB PO SCH (08:20)
[2019-04-02] MEDS: VITAMIN D 1,000 INTERNATIONAL UNITS TABLET PO SCH (21:41)
[2019-04-02] MEDS: TAMSULOSIN 0.4 MG CAP PO SCH (21:42)
[2019-04-02] MEDS: amLODIPine 10 MG TAB PO SCH (21:42)
[2019-04-02] MEDS: lisinopriL 5 MG TAB PO SCH (21:42)
[2019-04-02] MEDS: CYANOCOBALAMIN 500 MCG TAB PO SCH (21:42)
[2019-04-02] MEDS: DIVALPROEX 250MG *ER* TAB PO SCH (21:43)
[2019-04-02] MEDS: DONEPEZIL 5 MG TAB PO SCH (21:43)
[2019-04-03 06:00] VITALS: BP 147/65
[2019-04-03] MEDS: ENOXAPARIN 30MG/0.3ML SYRINGE (J1650 PER 10MG) SC SCH (08:27)
[2019-04-03] MEDS: CETIRIZINE (ZyrTEC) 10 MG TAB PO SCH (08:27)
[2019-04-03] MEDS: amLODIPine 10 MG TAB PO SCH (21:39)
[2019-04-03] MEDS: DIVALPROEX 250MG *ER* TAB PO SCH (21:39)
[2019-04-03] MEDS: VITAMIN D 1,000 INTERNATIONAL UNITS TABLET PO SCH (21:39)
[2019-04-03] MEDS: DONEPEZIL 5 MG TAB PO SCH (21:39)
[2019-04-03] MEDS: CYANOCOBALAMIN 500 MCG TAB PO SCH (21:40)
[2019-04-03] MEDS: TAMSULOSIN 0.4 MG CAP PO SCH (21:40)
[2019-04-03] MEDS: lisinopriL 5 MG TAB PO SCH (21:40)
[2019-04-04 06:00] VITALS: BP 128/62
[2019-04-04] MEDS: CETIRIZINE (ZyrTEC) 10 MG TAB PO SCH (08:20)
[2019-04-04] MEDS: ENOXAPARIN 30MG/0.3ML SYRINGE (J1650 PER 10MG) SC SCH (08:20)
[2019-04-04] MEDS: DIVALPROEX 250MG *ER* TAB PO SCH (20:07)
[2019-04-04] MEDS: DONEPEZIL 5 MG TAB PO SCH (20:07)
[2019-04-04] MEDS: CYANOCOBALAMIN 500 MCG TAB PO SCH (20:07)
[2019-04-04] MEDS: TAMSULOSIN 0.4 MG CAP PO SCH (20:07)
[2019-04-04] MEDS: VITAMIN D 1,000 INTERNATIONAL UNITS TABLET PO SCH (20:07)
[2019-04-04] MEDS: lisinopriL 5 MG TAB PO SCH (20:12)
[2019-04-04] MEDS: amLODIPine 10 MG TAB PO SCH (20:13)
[2019-04-05 06:00] VITALS: BP 145/67
[2019-04-05] MEDS: ENOXAPARIN 30MG/0.3ML SYRINGE (J1650 PER 10MG) SC SCH (10:08)
[2019-04-05] MEDS: CETIRIZINE (ZyrTEC) 10 MG TAB PO SCH (10:09)
[2019-04-05] MEDS: TAMSULOSIN 0.4 MG CAP PO SCH (20:16)
[2019-04-05] MEDS: DIVALPROEX 250MG *ER* TAB PO SCH (20:16)
[2019-04-05] MEDS: VITAMIN D 1,000 INTERNATIONAL UNITS TABLET PO SCH (20:16)
[2019-04-05] MEDS: DONEPEZIL 5 MG TAB PO SCH (20:17)
[2019-04-05] MEDS: CYANOCOBALAMIN 500 MCG TAB PO SCH (20:17)
[2019-04-05] MEDS: lisinopriL 5 MG TAB PO SCH (20:17)
[2019-04-05] MEDS: amLODIPine 10 MG TAB PO SCH (20:17)
[2019-04-06 06:00] VITALS: BP 145/63
[2019-04-06] MEDS: ENOXAPARIN 30MG/0.3ML SYRINGE (J1650 PER 10MG) SC SCH (09:00)
[2019-04-06] MEDS: CETIRIZINE (ZyrTEC) 10 MG TAB PO SCH (09:52)
[2019-04-06] MEDS: VITAMIN D 1,000 INTERNATIONAL UNITS TABLET PO SCH (20:30)
[2019-04-06] MEDS: TAMSULOSIN 0.4 MG CAP PO SCH (20:30)
[2019-04-06] MEDS: DONEPEZIL 5 MG TAB PO SCH (20:30)
[2019-04-06] MEDS: lisinopriL 5 MG TAB PO SCH (20:31)
[2019-04-06] MEDS: DIVALPROEX 250MG *ER* TAB PO SCH (20:31)
[2019-04-06] MEDS: amLODIPine 10 MG TAB PO SCH (20:31)
[2019-04-06] MEDS: CYANOCOBALAMIN 500 MCG TAB PO SCH (20:31)
[2019-04-07 06:00] VITALS: BP 122/58
[2019-04-07] MEDS: ENOXAPARIN 30MG/0.3ML SYRINGE (J1650 PER 10MG) SC SCH (08:26)
[2019-04-07] MEDS: CETIRIZINE (ZyrTEC) 10 MG TAB PO SCH (08:26)
--- NOTE | 2019-04-07 13:49 | IPN ---
DATE OF VISIT: 04/07/2019 Patient seen and examined at the bedside. Nursing had called saying that the and family have decided that they did want the toe amputated. Last discussion was on 02/12/2019 when I had previously seen him, at which time the family was not willing to have the toe removed with hopes that the toe would auto amputate. On my examination today, no significant changes appear to have happened in the last two months. The toe remains fully gangrenous with some slight malodor. There is no other signs of infection or erythema. I called the as the patient is not able to consent himself for surgery, and after further discussion she states she did not want the toe removed and did not want any surgery performed today and that she would have to think about it further before making that decision. The patient is fine to eat. The tentative surgery has been cancelled. Reconsult once the family amenable to having surgery and are willing to consent as such.
[2019-04-07] MEDS: lisinopriL 5 MG TAB PO SCH (21:00)
[2019-04-07] MEDS: DIVALPROEX 250MG *ER* TAB PO SCH (21:18)
[2019-04-07] MEDS: VITAMIN D 1,000 INTERNATIONAL UNITS TABLET PO SCH (21:18)
[2019-04-07] MEDS: TAMSULOSIN 0.4 MG CAP PO SCH (21:18)
[2019-04-07] MEDS: CYANOCOBALAMIN 500 MCG TAB PO SCH (21:18)
[2019-04-07] MEDS: DONEPEZIL 5 MG TAB PO SCH (21:18)
[2019-04-07] MEDS: amLODIPine 10 MG TAB PO SCH (21:23)
[2019-04-08] MEDS: ACETAMINOPHEN TAB 650MG DOSE (2X325MG) PO PRN (00:18)
[2019-04-08 06:00] VITALS: BP 131/55
[2019-04-08 08:51] LABS: HEMATOCRIT 31.7 % (42.0-52.0); HEMOGLOBIN 10.5 g/dl (13.5-17.5); MEAN CORPUSCULAR HEMOGLOBIN 31.6 pg (27.0-33.0); MEAN CORPUSCULAR HGB CONC 33.1 g/dl (32.0-36.5); MEAN CORPUSCULAR VOLUME 95.5 fl (80.0-96.0); PLATELET COUNT, AUTOMATED 315 10^3/uL (150-450); RED BLOOD COUNT 3.32 10^6/uL (4.30-6.10); WHITE BLOOD COUNT 8.4 10^3/uL (4.0-10.0)
[2019-04-08 08:55] LABS: CALCIUM LEVEL 8.3 MG/DL (8.8-10.2); CREATININE FOR GFR 1.27 MG/DL (0.70-1.30); GLOMERULAR FILTRATION RATE 57.5 (>35); MAGNESIUM LEVEL 2.1 MG/DL (1.8-2.4); POTASSIUM SERUM 3.9 MEQ/L (3.5-5.1)
[2019-04-08] MEDS: ENOXAPARIN 30MG/0.3ML SYRINGE (J1650 PER 10MG) SC SCH (09:15)
[2019-04-08] MEDS: CETIRIZINE (ZyrTEC) 10 MG TAB PO SCH (09:15)
--- NOTE | 2019-04-08 11:18 | IPNPDOC ---
Subjective Date Seen The patient was seen on 04/08/19. Subjective Chief Complaint/HPI Seen and examined at bedside, asleep in bed, arousable. Assessment /Plan Assessment 1. 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 Murphy today. - family is again refusing surgical amputation. 2. Oropharyngeal dysfunction - seen by SUPERVISOR SEAMING, on modified mechanical soft diet. 3. Aspiration pneumonia / Reactive pneumonitis - completed 7 day course of unasyn/augmentin. 4. CKD stage 3 - SCr appears at baseline. 5. HTN - controlled, monitor. - continue amlodipine and lisinopril. 6. Seizure disorder - divalproex. 7. Dementia - donepezil. 8. BPH - flomax. 9. Insomnia - trazodone. 10. DVT prophylaxis - lovenox. Disposition: - Currently is ALC status - Awaiting placement Plan/VTE VTE Prophylaxis Ordered?: Yes VS, I&O, 24H, Fishbone Vital Signs/I&O Vital Signs Date Time Temp Pulse Resp B/P (MAP) Pulse Ox O2 Delivery O2 Flow Rate FiO2 04/08/19 06:00 99.0 51 20 131/55 (80) 95 Room Air I&O- Last 24 Hours up to 6 AM 04/08/19 06:00 Intake Total 560 ml Output Total 225 ml Balance 335 ml Laboratory Data 24H LABS Laboratory Tests 2 04/08/19 08:14: Nucleated Red Blood Cells % (auto) 0.0, Anion Gap 7L, Glomerular Filtration Rate 57.5, Calcium Level 8.3L, Magnesium Level 2.1 CBC/BMP Laboratory Tests 04/08/19 08:14 JC ACUÑA MD Apr 08, 2019 11:18
[2019-04-08] MEDS: CYANOCOBALAMIN 500 MCG TAB PO SCH (20:14)
[2019-04-08] MEDS: lisinopriL 5 MG TAB PO SCH (20:15)
[2019-04-08] MEDS: DONEPEZIL 5 MG TAB PO SCH (20:15)
[2019-04-08] MEDS: TAMSULOSIN 0.4 MG CAP PO SCH (20:15)
[2019-04-08] MEDS: VITAMIN D 1,000 INTERNATIONAL UNITS TABLET PO SCH (20:15)
[2019-04-08] MEDS: amLODIPine 10 MG TAB PO SCH (20:15)
[2019-04-08] MEDS: DIVALPROEX 250MG *ER* TAB PO SCH (20:16)
[2019-04-09 06:00] VITALS: BP 137/54
[2019-04-09 06:34] LABS: HEMATOCRIT 30.7 % (42.0-52.0); HEMOGLOBIN 10.3 g/dl (13.5-17.5); MEAN CORPUSCULAR HEMOGLOBIN 31.8 pg (27.0-33.0); MEAN CORPUSCULAR HGB CONC 33.6 g/dl (32.0-36.5); MEAN CORPUSCULAR VOLUME 94.8 fl (80.0-96.0); PLATELET COUNT, AUTOMATED 323 10^3/uL (150-450); RED BLOOD COUNT 3.24 10^6/uL (4.30-6.10); WHITE BLOOD COUNT 10.3 10^3/uL (4.0-10.0)
[2019-04-09 06:54] LABS: CALCIUM LEVEL 8.5 MG/DL (8.8-10.2); CREATININE FOR GFR 1.27 MG/DL (0.70-1.30); GLOMERULAR FILTRATION RATE 57.5 (>35); POTASSIUM SERUM 3.7 MEQ/L (3.5-5.1)
[2019-04-09] MEDS: CETIRIZINE (ZyrTEC) 10 MG TAB PO SCH (09:48)
[2019-04-09] MEDS: ENOXAPARIN 30MG/0.3ML SYRINGE (J1650 PER 10MG) SC SCH (09:48)
[2019-04-09] MEDS: VITAMIN D 1,000 INTERNATIONAL UNITS TABLET PO SCH (20:56)
[2019-04-09] MEDS: DIVALPROEX 250MG *ER* TAB PO SCH (20:57)
[2019-04-09] MEDS: TAMSULOSIN 0.4 MG CAP PO SCH (20:58)
[2019-04-09] MEDS: DONEPEZIL 5 MG TAB PO SCH (20:58)
[2019-04-09] MEDS: CYANOCOBALAMIN 500 MCG TAB PO SCH (20:58)
[2019-04-09] MEDS: amLODIPine 10 MG TAB PO SCH (20:58)
[2019-04-09] MEDS: lisinopriL 5 MG TAB PO SCH (20:58)
[2019-04-10 06:00] VITALS: BP 134/58
[2019-04-10 06:43] LABS: HEMATOCRIT 30.6 % (42.0-52.0); HEMOGLOBIN 10.1 g/dl (13.5-17.5); MEAN CORPUSCULAR HEMOGLOBIN 31.4 pg (27.0-33.0); PLATELET COUNT, AUTOMATED 348 10^3/uL (150-450); RED BLOOD COUNT 3.22 10^6/uL (4.30-6.10); WHITE BLOOD COUNT 9.7 10^3/uL (4.0-10.0)
[2019-04-10 07:12] LABS: BLOOD UREA NITROGEN 30 MG/DL (7-18); CALCIUM LEVEL 8.1 MG/DL (8.8-10.2); CARBON DIOXIDE LEVEL 25 MEQ/L (21-32); CHLORIDE LEVEL 105 MEQ/L (98-107); CREATININE FOR GFR 1.21 MG/DL (0.70-1.30); GLOMERULAR FILTRATION RATE > 60.0 (>35); GLUCOSE, FASTING 73 MG/DL (70-100); MAGNESIUM LEVEL 2.1 MG/DL (1.8-2.4); POTASSIUM SERUM 4.1 MEQ/L (3.5-5.1); SODIUM LEVEL 138 MEQ/L (136-145)
[2019-04-10] MEDS: CETIRIZINE (ZyrTEC) 10 MG TAB PO SCH (08:30)
[2019-04-10] MEDS: ENOXAPARIN 30MG/0.3ML SYRINGE (J1650 PER 10MG) SC SCH (08:31)
[2019-04-10] MEDS: DIVALPROEX 250MG *ER* TAB PO SCH (20:22)
[2019-04-10] MEDS: VITAMIN D 1,000 INTERNATIONAL UNITS TABLET PO SCH (20:23)
[2019-04-10] MEDS: DONEPEZIL 5 MG TAB PO SCH (20:23)
[2019-04-10] MEDS: TAMSULOSIN 0.4 MG CAP PO SCH (20:23)
[2019-04-10] MEDS: lisinopriL 5 MG TAB PO SCH (20:24)
[2019-04-10] MEDS: amLODIPine 10 MG TAB PO SCH (20:25)
[2019-04-10] MEDS: CYANOCOBALAMIN 500 MCG TAB PO SCH (20:25)
[2019-04-11 06:00] VITALS: BP 132/83
[2019-04-11 06:38] LABS: HEMATOCRIT 32.5 % (42.0-52.0); HEMOGLOBIN 10.4 g/dl (13.5-17.5); MEAN CORPUSCULAR HEMOGLOBIN 30.9 pg (27.0-33.0); MEAN CORPUSCULAR VOLUME 96.4 fl (80.0-96.0); PLATELET COUNT, AUTOMATED 346 10^3/uL (150-450); RED BLOOD COUNT 3.37 10^6/uL (4.30-6.10); WHITE BLOOD COUNT 10.1 10^3/uL (4.0-10.0)
[2019-04-11 06:56] LABS: CALCIUM LEVEL 8.2 MG/DL (8.8-10.2); CREATININE FOR GFR 1.27 MG/DL (0.70-1.30); GLOMERULAR FILTRATION RATE 57.5 (>35); MAGNESIUM LEVEL 1.9 MG/DL (1.8-2.4); POTASSIUM SERUM 4.1 MEQ/L (3.5-5.1)
[2019-04-11] MEDS: ENOXAPARIN 30MG/0.3ML SYRINGE (J1650 PER 10MG) SC SCH (08:23)
[2019-04-11] MEDS: CETIRIZINE (ZyrTEC) 10 MG TAB PO SCH (08:24)
[2019-04-11] MEDS: DIVALPROEX 250MG *ER* TAB PO SCH (21:30)
[2019-04-11] MEDS: TAMSULOSIN 0.4 MG CAP PO SCH (21:30)
[2019-04-11] MEDS: VITAMIN D 1,000 INTERNATIONAL UNITS TABLET PO SCH (21:30)
[2019-04-11] MEDS: DONEPEZIL 5 MG TAB PO SCH (21:31)
[2019-04-11] MEDS: amLODIPine 10 MG TAB PO SCH (21:31)
[2019-04-11] MEDS: CYANOCOBALAMIN 500 MCG TAB PO SCH (21:31)
[2019-04-11] MEDS: lisinopriL 5 MG TAB PO SCH (21:31)
[2019-04-12 05:37] LABS: HEMATOCRIT 31.7 % (42.0-52.0); HEMOGLOBIN 10.4 g/dl (13.5-17.5); MEAN CORPUSCULAR HEMOGLOBIN 31.3 pg (27.0-33.0); MEAN CORPUSCULAR HGB CONC 32.8 g/dl (32.0-36.5); MEAN CORPUSCULAR VOLUME 95.5 fl (80.0-96.0); PLATELET COUNT, AUTOMATED 344 10^3/uL (150-450); RED BLOOD COUNT 3.32 10^6/uL (4.30-6.10); WHITE BLOOD COUNT 10.7 10^3/uL (4.0-10.0)
[2019-04-12 06:00] VITALS: BP 128/61
[2019-04-12 06:01] LABS: CALCIUM LEVEL 8.3 MG/DL (8.8-10.2); CREATININE FOR GFR 1.25 MG/DL (0.70-1.30); GLOMERULAR FILTRATION RATE 58.6 (>35); POTASSIUM SERUM 4.3 MEQ/L (3.5-5.1)
[2019-04-12] MEDS: CETIRIZINE (ZyrTEC) 10 MG TAB PO SCH (08:44)
[2019-04-12] MEDS: ENOXAPARIN 30MG/0.3ML SYRINGE (J1650 PER 10MG) SC SCH (08:44)
--- NOTE | 2019-04-12 12:01 | IPNPDOC ---
Subjective Date Seen The patient was seen on 04/12/19. Subjective Chief Complaint/HPI Seen and examined at bedside, no change in clinical condition. General: Reports: ROS Unobtainable Objective Physical Examination General Exam: Positive: No Acute Distress Eye Exam: Positive: Conjunctiva & lids normal ENT Exam: Positive: Atraumatic, Mucous membr. moist/pink, Pharynx Normal Neck Exam: Positive: Supple; Negative: JVD, thyromegaly Chest Exam: Positive: Clear to auscultation, Normal air movement Heart Exam: Positive: Rate Normal, Regular Rhythm, Normal S1, Normal S2; Negative: Murmurs, Rubs Telemetry: Positive: No significant arrhythmia Abdomen Exam: Positive: Normal bowel sounds, Soft; Negative: Tenderness, Hepatospenomegaly Male Exam: Positive: Normal Genital Exam Extremity Exam: Positive: Normal pulses; Negative: Clubbing, Cyanosis, Edema Skin Exam: Positive: Nl turgor and temperature; Negative: Rash, Breakdown Assessment /Plan Assessment 1. 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 - family has refused surgical amputation. 2. Oropharyngeal dysfunction - seen by PROOF CLERK, on modified mechanical soft diet. 3. Aspiration pneumonia / Reactive pneumonitis - completed 7 day course of unasyn/augmentin. 4. CKD stage 3 - SCr appears at baseline. 5. HTN - controlled, monitor. - continue amlodipine and lisinopril. 6. Seizure disorder - divalproex. 7. Dementia - donepezil. 8. BPH - flomax. 9. Insomnia - trazodone. 10. DVT prophylaxis - lovenox. Disposition: - Currently is ALC status - Awaiting placement Plan/VTE VTE Prophylaxis Ordered?: Yes VS, I&O, 24H, Fishbone Vital Signs/I&O Vital Signs Date Time Temp Pulse Resp B/P (MAP) Pulse Ox O2 Delivery O2 Flow Rate FiO2 04/12/19 06:00 98.4 51 18 128/61 (83) 93 Room Air I&O- Last 24 Hours up to 6 AM 04/12/19 06:00 Intake Total 480 ml Output Total 100 ml Balance 380 ml Laboratory Data 24H LABS Laboratory Tests 2 04/12/19 05:10: Nucleated Red Blood Cells % (auto) 0.0, Anion Gap 5L, Glomerular Filtration Rate 58.6, Calcium Level 8.3L, Magnesium Level 2.0 CBC/BMP Laboratory Tests 04/12/19 05:10 JC ACUÑA MD Apr 12, 2019 12:01
[2019-04-12] MEDS: CYANOCOBALAMIN 500 MCG TAB PO SCH (20:38)
[2019-04-12] MEDS: DONEPEZIL 5 MG TAB PO SCH (20:38)
[2019-04-12] MEDS: VITAMIN D 1,000 INTERNATIONAL UNITS TABLET PO SCH (20:38)
[2019-04-12] MEDS: TAMSULOSIN 0.4 MG CAP PO SCH (20:39)
[2019-04-12] MEDS: DIVALPROEX 250MG *ER* TAB PO SCH (20:39)
[2019-04-12] MEDS: amLODIPine 10 MG TAB PO SCH (20:43)
[2019-04-12] MEDS: lisinopriL 5 MG TAB PO SCH (20:43)
[2019-04-13 06:00] VITALS: BP 133/59
[2019-04-13 07:36] LABS: HEMATOCRIT 32.1 % (42.0-52.0); HEMOGLOBIN 10.5 g/dl (13.5-17.5); MEAN CORPUSCULAR HEMOGLOBIN 31.6 pg (27.0-33.0); MEAN CORPUSCULAR HGB CONC 32.7 g/dl (32.0-36.5); MEAN CORPUSCULAR VOLUME 96.7 fl (80.0-96.0); PLATELET COUNT, AUTOMATED 352 10^3/uL (150-450); RED BLOOD COUNT 3.32 10^6/uL (4.30-6.10); WHITE BLOOD COUNT 9.1 10^3/uL (4.0-10.0)
[2019-04-13 08:07] LABS: CALCIUM LEVEL 8.4 MG/DL (8.8-10.2); CREATININE FOR GFR 1.27 MG/DL (0.70-1.30); GLOMERULAR FILTRATION RATE 57.5 (>35); POTASSIUM SERUM 4.3 MEQ/L (3.5-5.1)
[2019-04-13] MEDS: ENOXAPARIN 30MG/0.3ML SYRINGE (J1650 PER 10MG) SC SCH (09:00)
[2019-04-13] MEDS: CETIRIZINE (ZyrTEC) 10 MG TAB PO SCH (09:00)
--- NOTE | 2019-04-13 19:55 | IPNPDOC ---
Date Seen The patient was seen on 04/13/19. Progress Note SUBJECTIVE: Patient reports discomfort in gangrenous toe but otherwise denies any other c omplaints. No acute events reported overnight. Afebrile with resolution of leukocytosis. OBJECTIVE PHYSICAL EXAMINATION: VITAL SIGNS: Please see below. General: No acute distress, Alert Eyes: Normal sclera, EOMI HENT: Atraumatic Cardiovascular: Normal rate, normal rhythm. Pulmonary: Clear to auscultation b/l, no wheezing GI: Soft, nontender, nondistended Skin: R. 5th toe gangrene, dry. Neuro: CN grossly intact. No focal deficits. Strengths equal b/l. Psych: oriented x 3 LABORATORY DATA, IMAGING STUDIES, MICROBIOLOGY: Please see below. DVT prophylaxis ordered?: Lovenox ASSESSMENT AND PLAN: 1. 5th toe dry gangrene - Evaluated by podiatry but family had refused surgical amputation. - Monitor at this time. No further intervention plan. 2. Oropharyngeal dysfunction - seen by speech. on modified mechanical soft diet. 3. Aspiration PNA - s/p 7 day course of Unasyn/Augmentin. 4. HTN - c/w norvasc and lisinopril 5. Seizure disorder - c/w divalproex. 6. dementia - c/w donepezil 7. ckd stage 3 - at baseline DISPOSITION: ALC status pending placement. VS, I&O, 24H, [facility] Vital Signs/I&O Vital Signs Date Time Temp Pulse Resp B/P (MAP) Pulse Ox O2 Delivery O2 Flow Rate FiO2 04/13/19 06:00 99.1 56 17 133/59 (83) 94 Room Air I&O- Last 24 Hours up to 6 AM 04/13/19 06:00 Intake Total 640 ml Output Total 100 ml Balance 540 ml Laboratory Data 24H LABS Laboratory Tests 2 04/13/19 07:23: Nucleated Red Blood Cells % (auto) 0.0, Anion Gap 6L, Glomerular Filtration Rate 57.5, Calcium Level 8.4L CBC/BMP Laboratory Tests 04/13/19 07:23 HUMERA DAMON MD Apr 13, 2019 19:55
[2019-04-13] MEDS: CYANOCOBALAMIN 500 MCG TAB PO SCH (21:30)
[2019-04-13] MEDS: DONEPEZIL 5 MG TAB PO SCH (21:30)
[2019-04-13] MEDS: TAMSULOSIN 0.4 MG CAP PO SCH (21:30)
[2019-04-13] MEDS: VITAMIN D 1,000 INTERNATIONAL UNITS TABLET PO SCH (21:30)
[2019-04-13] MEDS: amLODIPine 10 MG TAB PO SCH (21:31)
[2019-04-13] MEDS: DIVALPROEX 250MG *ER* TAB PO SCH (21:31)
[2019-04-13] MEDS: lisinopriL 5 MG TAB PO SCH (21:31)
[2019-04-14 06:00] VITALS: BP 106/76
[2019-04-14] MEDS: CETIRIZINE (ZyrTEC) 10 MG TAB PO SCH (09:11)
[2019-04-14] MEDS: ENOXAPARIN 30MG/0.3ML SYRINGE (J1650 PER 10MG) SC SCH (09:12)
[2019-04-14] MEDS: DIVALPROEX 250MG *ER* TAB PO SCH (22:28)
[2019-04-14] MEDS: CYANOCOBALAMIN 500 MCG TAB PO SCH (22:30)
[2019-04-14] MEDS: amLODIPine 10 MG TAB PO SCH (22:30)
[2019-04-14] MEDS: lisinopriL 5 MG TAB PO SCH (22:30)
[2019-04-14] MEDS: VITAMIN D 1,000 INTERNATIONAL UNITS TABLET PO SCH (22:30)
[2019-04-14] MEDS: DONEPEZIL 5 MG TAB PO SCH (22:30)
[2019-04-14] MEDS: TAMSULOSIN 0.4 MG CAP PO SCH (22:31)
[2019-04-15 06:00] VITALS: BP 117/56
[2019-04-15] MEDS: ENOXAPARIN 30MG/0.3ML SYRINGE (J1650 PER 10MG) SC SCH ×2 (09:00→09:39)
[2019-04-15] MEDS: CETIRIZINE (ZyrTEC) 10 MG TAB PO SCH (09:39)
[2019-04-15] MEDS: TAMSULOSIN 0.4 MG CAP PO SCH (21:51)
[2019-04-15] MEDS: VITAMIN D 1,000 INTERNATIONAL UNITS TABLET PO SCH (21:51)
[2019-04-15] MEDS: CYANOCOBALAMIN 500 MCG TAB PO SCH (21:52)
[2019-04-15] MEDS: DONEPEZIL 5 MG TAB PO SCH (21:52)
[2019-04-15] MEDS: DIVALPROEX 250MG *ER* TAB PO SCH (21:52)
[2019-04-15] MEDS: lisinopriL 5 MG TAB PO SCH (21:53)
[2019-04-15] MEDS: amLODIPine 10 MG TAB PO SCH (21:53)
[2019-04-16 06:00] VITALS: BP 142/61
[2019-04-16] MEDS: ENOXAPARIN 30MG/0.3ML SYRINGE (J1650 PER 10MG) SC SCH (08:19)
[2019-04-16] MEDS: CETIRIZINE (ZyrTEC) 10 MG TAB PO SCH (08:19)
[2019-04-16] MEDS: lisinopriL 5 MG TAB PO SCH (21:00)
[2019-04-16] MEDS: amLODIPine 10 MG TAB PO SCH (21:00)
[2019-04-16] MEDS: DIVALPROEX 250MG *ER* TAB PO SCH (21:54)
[2019-04-16] MEDS: TAMSULOSIN 0.4 MG CAP PO SCH (21:54)
[2019-04-16] MEDS: DONEPEZIL 5 MG TAB PO SCH (21:54)
[2019-04-16] MEDS: CYANOCOBALAMIN 500 MCG TAB PO SCH (21:54)
[2019-04-16] MEDS: VITAMIN D 1,000 INTERNATIONAL UNITS TABLET PO SCH (21:55)
[2019-04-17] MEDS: ACETAMINOPHEN TAB 650MG DOSE (2X325MG) PO PRN ×3 (01:32→20:31)
[2019-04-17 06:00] VITALS: BP 156/68
[2019-04-17] MEDS: CETIRIZINE (ZyrTEC) 10 MG TAB PO SCH (08:25)
[2019-04-17] MEDS: ENOXAPARIN 30MG/0.3ML SYRINGE (J1650 PER 10MG) SC SCH (08:25)
--- NOTE | 2019-04-17 10:22 | IPNPDOC ---
Date Seen The patient was seen on 04/17/19. Progress Note SUBJECTIVE: Patient denies any noticable discomfort today including pain in the toe. Afebrile overnight. OBJECTIVE PHYSICAL EXAMINATION: VITAL SIGNS: Please see below. General: No acute distress, Alert Eyes: Normal sclera, EOMI HENT: Atraumatic Cardiovascular: Normal rate, normal rhythm. Pulmonary: Clear to auscultation b/l, no wheezing GI: Soft, nontender, nondistended Skin: R. 5th toe gangrene, dry. Neuro: CN grossly intact. No focal deficits. Strengths equal b/l. Psych: oriented x 3 LABORATORY DATA, IMAGING STUDIES, MICROBIOLOGY: Please see below. DVT prophylaxis ordered?: Lovenox ASSESSMENT AND PLAN: 1. 5th toe dry gangrene - Evaluated by podiatry but family had refused surgical amputation. - Monitor at this time. No further intervention plan until patient agrees to treatment. - No evidence of systemic infection at this time. 2. Oropharyngeal dysfunction - seen by speech. on modified mechanical soft diet. 3. Aspiration PNA - s/p 7 day course of Unasyn/Augmentin. 4. HTN - c/w norvasc and lisinopril 5. Seizure disorder - c/w divalproex. 6. dementia - c/w donepezil 7. ckd stage 3 - at baseline DISPOSITION: ALC status pending placement. VS, I&O, 24H, Fishbone Vital Signs/I&O Vital Signs Date Time Temp Pulse Resp B/P (MAP) Pulse Ox O2 Delivery O2 Flow Rate FiO2 04/17/19 06:00 98.3 62 16 156/68 (97) 95 Room Air I&O- Last 24 Hours up to 6 AM 04/17/19 06:00 Intake Total 360 ml Output Total 50 ml Balance 310 ml HUMERA DAMON MD Apr 17, 2019 10:22
[2019-04-17] MEDS: VITAMIN D 1,000 INTERNATIONAL UNITS TABLET PO SCH (20:31)
[2019-04-17] MEDS: DIVALPROEX 250MG *ER* TAB PO SCH (20:31)
[2019-04-17] MEDS: DONEPEZIL 5 MG TAB PO SCH (20:31)
[2019-04-17] MEDS: CYANOCOBALAMIN 500 MCG TAB PO SCH (20:31)
[2019-04-17] MEDS: TAMSULOSIN 0.4 MG CAP PO SCH (20:31)
[2019-04-17] MEDS: amLODIPine 10 MG TAB PO SCH (20:33)
[2019-04-17] MEDS: lisinopriL 5 MG TAB PO SCH (20:34)
[2019-04-18 06:00] VITALS: BP 103/57
[2019-04-18] MEDS: ENOXAPARIN 30MG/0.3ML SYRINGE (J1650 PER 10MG) SC SCH (08:55)
[2019-04-18] MEDS: CETIRIZINE (ZyrTEC) 10 MG TAB PO SCH (08:55)
[2019-04-18] MEDS: DIVALPROEX 250MG *ER* TAB PO SCH (20:55)
[2019-04-18] MEDS: amLODIPine 10 MG TAB PO SCH (20:56)
[2019-04-18] MEDS: DONEPEZIL 5 MG TAB PO SCH (20:56)
[2019-04-18] MEDS: VITAMIN D 1,000 INTERNATIONAL UNITS TABLET PO SCH (20:56)
[2019-04-18] MEDS: TAMSULOSIN 0.4 MG CAP PO SCH (20:56)
[2019-04-18] MEDS: lisinopriL 5 MG TAB PO SCH (20:57)
[2019-04-18] MEDS: CYANOCOBALAMIN 500 MCG TAB PO SCH (20:57)
[2019-04-19] MEDS: ACETAMINOPHEN TAB 650MG DOSE (2X325MG) PO PRN (02:05)
[2019-04-19 06:00] VITALS: BP 111/59
[2019-04-19] MEDS: ENOXAPARIN 30MG/0.3ML SYRINGE (J1650 PER 10MG) SC SCH (08:15)
[2019-04-19] MEDS: CETIRIZINE (ZyrTEC) 10 MG TAB PO SCH (08:15)
[2019-04-19] MEDS: DONEPEZIL 5 MG TAB PO SCH (20:11)
[2019-04-19] MEDS: TAMSULOSIN 0.4 MG CAP PO SCH (20:11)
[2019-04-19] MEDS: CYANOCOBALAMIN 500 MCG TAB PO SCH (20:11)
[2019-04-19] MEDS: amLODIPine 10 MG TAB PO SCH (20:12)
[2019-04-19] MEDS: DIVALPROEX 250MG *ER* TAB PO SCH (20:12)
[2019-04-19] MEDS: VITAMIN D 1,000 INTERNATIONAL UNITS TABLET PO SCH (20:12)
[2019-04-19] MEDS: lisinopriL 5 MG TAB PO SCH (20:12)
[2019-04-20 06:00] VITALS: BP 129/81
[2019-04-20] MEDS: CETIRIZINE (ZyrTEC) 10 MG TAB PO SCH (09:21)
[2019-04-20] MEDS: ENOXAPARIN 30MG/0.3ML SYRINGE (J1650 PER 10MG) SC SCH (09:21)
[2019-04-20 14:12] VITALS: BP 104/54
[2019-04-20 16:57] VITALS: BP 130/56
[2019-04-20] MEDS: amLODIPine 5 MG TAB PO SCH (22:25)
[2019-04-20] MEDS: TAMSULOSIN 0.4 MG CAP PO SCH (22:25)
[2019-04-20] MEDS: VITAMIN D 1,000 INTERNATIONAL UNITS TABLET PO SCH (22:25)
[2019-04-20] MEDS: DONEPEZIL 5 MG TAB PO SCH (22:26)
[2019-04-20] MEDS: CYANOCOBALAMIN 500 MCG TAB PO SCH (22:26)
[2019-04-20] MEDS: lisinopriL 5 MG TAB PO SCH (22:26)
[2019-04-20] MEDS: DIVALPROEX 250MG *ER* TAB PO SCH (22:27)
[2019-04-21 06:00] VITALS: BP 133/61
[2019-04-21] MEDS: CETIRIZINE (ZyrTEC) 10 MG TAB PO SCH (10:15)
[2019-04-21] MEDS: ENOXAPARIN 30MG/0.3ML SYRINGE (J1650 PER 10MG) SC SCH (10:16)
--- NOTE | 2019-04-21 20:39 | IPNPDOC ---
Text Note Date of Service The patient was seen on 04/21/19. NOTE SUBJECTIVE This is an 83-year-old male who unfortunately has significant gangrene to the toes of his right foot. He's had an extended hospital stay. Family has been reluctant and essentially refused any intervention. This is been a long ongoing process with trying to get this patient to transition to appropriate care; patient would likely be best placed in a facility, but family continues to want to make plans to bring the patient home. OBJECTIVE: Please see vital signs below Physical exam: General: Patient appears principally oriented to self HEENT: Neck is supple with no adenopathy or thyromegaly. He appears to have right lower periorbital ecchymoses. Cardiovascular: Regular rate and rhythm with a normal S1 and S2 Respiratory: Generally clear to auscultation, patient is at its at times be apneic. Abdomen: Soft, nontender, nondistended, positive bowel tones. Extremities: Both feet are in heel lift boots, right foot has a foul odor. Neuro: Patient moves his extremities volitionally but is very weak and requires remarkable mechanical assistance to get out of bed ASSESSMENT/PLAN: 1. Gangrene Initially, this involved the right fifth toe; this appears to extended to other toes as well. There is to be no surgical intervention. Services continue to attempt placement. 2. Dysphagia. Patient does have swallowing difficulty. This has been manifested by aspiration pneumonia. He continues at risk. VS,Fishbone, I+O VS, Fishbone, I+O Vital Signs Date Time Temp Pulse Resp B/P (MAP) Pulse Ox O2 Delivery O2 Flow Rate FiO2 04/21/19 06:00 98.0 64 18 133/61 (85) 96 04/19/19 06:00 Room Air I&O- Last 24 Hours up to 6 AM 04/21/19 06:00 Intake Total 240 ml Output Total 0 ml Balance 240 ml GEOFF JACINTO MD Apr 21, 2019 20:39
[2019-04-21] MEDS: lisinopriL 5 MG TAB PO SCH (21:40)
[2019-04-21] MEDS: DONEPEZIL 5 MG TAB PO SCH (21:40)
[2019-04-21] MEDS: amLODIPine 5 MG TAB PO SCH (21:40)
[2019-04-21] MEDS: TAMSULOSIN 0.4 MG CAP PO SCH (21:40)
[2019-04-21] MEDS: VITAMIN D 1,000 INTERNATIONAL UNITS TABLET PO SCH (21:41)
[2019-04-21] MEDS: DIVALPROEX 250MG *ER* TAB PO SCH (21:41)
[2019-04-21] MEDS: CYANOCOBALAMIN 500 MCG TAB PO SCH (21:41)
[2019-04-22 06:00] VITALS: BP 121/59
[2019-04-22] MEDS: CETIRIZINE (ZyrTEC) 10 MG TAB PO SCH (08:54)
[2019-04-22] MEDS: ENOXAPARIN 30MG/0.3ML SYRINGE (J1650 PER 10MG) SC SCH (08:55)
--- NOTE | 2019-04-22 21:30 | IPNPDOC ---
Text Note Date of Service The patient was seen on 04/22/19. NOTE SUBJECTIVE This is an 83-year-old male who unfortunately has significant gangrene to the toes of his right foot. He's had an extended hospital stay. Family has been reluctant and essentially refused any intervention. This is been a long ongoing process with trying to get this patient to transition to appropriate care; patient would likely be best placed in a facility, but family continues to want to make plans to bring the patient home. OBJECTIVE: Please see vital signs below Physical exam: General: Patient appears principally oriented to self HEENT: Neck is supple with no adenopathy or thyromegaly. He appears to have right lower periorbital ecchymoses. Cardiovascular: Regular rate and rhythm with a normal S1 and S2 Respiratory: Generally clear to auscultation, patient is observed at times be apneic. Abdomen: Soft, nontender, nondistended, positive bowel tones. Extremities: Right 5th toe with dry gangrene and underlying purulence with odor. Neuro: Patient moves his extremities volitionally but is very weak and requires remarkable mechanical assistance to get out of bed Psych: Cognition and insight are questionable, patient states his foot is going to "take care of itself" ASSESSMENT/PLAN: 1. Gangrene Initially, this involved the right fifth toe; this appears to extended to other toes as well. There is to be no surgical intervention per patient and family. Services continue to attempt placement but family states they prefer to take him home. Would need wheelchair, hospital bed and Pravin lift. 2. Dysphagia. Patient does have swallowing difficulty. This has been manifested by aspiration pneumonia. He continues at risk. VS,Fishbone, I+O VS, Fishbone, I+O Vital Signs Date Time Temp Pulse Resp B/P (MAP) Pulse Ox O2 Delivery O2 Flow Rate FiO2 04/22/19 06:00 97.8 60 20 121/59 (79) 94 Room Air I&O- Last 24 Hours up to 6 AM 04/22/19 06:00 Intake Total 1150 ml Output Total 200 ml Balance 950 ml GEOFF JACINTO MD Apr 22, 2019 21:30
[2019-04-22] MEDS: DIVALPROEX 250MG *ER* TAB PO SCH (22:58)
[2019-04-22] MEDS: VITAMIN D 1,000 INTERNATIONAL UNITS TABLET PO SCH (22:58)
[2019-04-22] MEDS: DONEPEZIL 5 MG TAB PO SCH (22:58)
[2019-04-22] MEDS: TAMSULOSIN 0.4 MG CAP PO SCH (22:59)
[2019-04-22] MEDS: CYANOCOBALAMIN 500 MCG TAB PO SCH (22:59)
[2019-04-22] MEDS: amLODIPine 5 MG TAB PO SCH (22:59)
[2019-04-22] MEDS: lisinopriL 5 MG TAB PO SCH (23:00)
[2019-04-23 06:00] VITALS: BP 134/75
[2019-04-23] MEDS: ENOXAPARIN 30MG/0.3ML SYRINGE (J1650 PER 10MG) SC SCH (10:07)
[2019-04-23] MEDS: CETIRIZINE (ZyrTEC) 10 MG TAB PO SCH (10:07)
--- NOTE | 2019-04-23 19:45 | IPNPDOC ---
Text Note Date of Service The patient was seen on 04/23/19. NOTE SUBJECTIVE This is an 83-year-old male who unfortunately has significant gangrene to the toes of his right foot. He's had an extended hospital stay. Family has been reluctant and essentially refused any intervention. This is been a long ongoing process with trying to get this patient to transition to appropriate care; patient would likely be best placed in a facility, but family continues to want to make plans to bring the patient home. OBJECTIVE: Please see vital signs below Physical exam: General: Patient appears principally oriented to self HEENT: Neck is supple with no adenopathy or thyromegaly. He appears to have right lower periorbital ecchymoses. Cardiovascular: Regular rate and rhythm with a normal S1 and S2 Respiratory: Generally clear to auscultation, patient is observed at times be apneic. Abdomen: Soft, nontender, nondistended, positive bowel tones. Extremities: Right 5th toe with dry gangrene and underlying purulence with odor. Neuro: Patient moves his extremities volitionally but is very weak and requires remarkable mechanical assistance to get out of bed Psych: Cognition and insight are questionable, patient states his foot is going to "take care of itself" ASSESSMENT/PLAN: 1. Gangrene Initially, this involved the right fifth toe; this appears to extend to adjacent toes as well. There is to be no surgical intervention per patient and family. Family is now stating they cannot take him home and requesting placement. Case management continues to attempt assistance. 2. Dysphagia. Patient does have swallowing difficulty. This has been manifested by aspiration pneumonia. He continues at risk. VS,Fishbone, I+O VS, Fishbone, I+O Vital Signs Date Time Temp Pulse Resp B/P (MAP) Pulse Ox O2 Delivery O2 Flow Rate FiO2 04/23/19 06:00 97.8 59 20 134/75 (94) 95 Room Air I&O- Last 24 Hours up to 6 AM 04/23/19 06:00 Intake Total 1140 ml Balance 1140 ml GEOFF JACINTO MD Apr 23, 2019 19:45
[2019-04-23] MEDS: amLODIPine 5 MG TAB PO SCH (20:46)
[2019-04-23] MEDS: VITAMIN D 1,000 INTERNATIONAL UNITS TABLET PO SCH (20:47)
[2019-04-23] MEDS: CYANOCOBALAMIN 500 MCG TAB PO SCH (20:47)
[2019-04-23] MEDS: lisinopriL 5 MG TAB PO SCH (20:47)
[2019-04-23] MEDS: DONEPEZIL 5 MG TAB PO SCH (20:47)
[2019-04-23] MEDS: TAMSULOSIN 0.4 MG CAP PO SCH (20:48)
[2019-04-23] MEDS: DIVALPROEX 250MG *ER* TAB PO SCH (20:48)
[2019-04-24 06:00] VITALS: BP 124/59
[2019-04-24] MEDS: CETIRIZINE (ZyrTEC) 10 MG TAB PO SCH (10:36)
[2019-04-24] MEDS: ENOXAPARIN 30MG/0.3ML SYRINGE (J1650 PER 10MG) SC SCH (10:36)
[2019-04-24] MEDS: amLODIPine 5 MG TAB PO SCH (21:00)
[2019-04-24] MEDS: lisinopriL 5 MG TAB PO SCH (21:00)
[2019-04-24] MEDS: VITAMIN D 1,000 INTERNATIONAL UNITS TABLET PO SCH (21:02)
[2019-04-24] MEDS: DONEPEZIL 5 MG TAB PO SCH (21:02)
[2019-04-24] MEDS: CYANOCOBALAMIN 500 MCG TAB PO SCH (21:02)
[2019-04-24] MEDS: TAMSULOSIN 0.4 MG CAP PO SCH (21:02)
[2019-04-24] MEDS: DIVALPROEX 250MG *ER* TAB PO SCH (21:02)
[2019-04-25 06:00] VITALS: BP 133/70
[2019-04-25] MEDS: ENOXAPARIN 30MG/0.3ML SYRINGE (J1650 PER 10MG) SC SCH (08:51)
[2019-04-25] MEDS: CETIRIZINE (ZyrTEC) 10 MG TAB PO SCH (08:51)
[2019-04-25] MEDS: DONEPEZIL 5 MG TAB PO SCH (22:22)
[2019-04-25] MEDS: DIVALPROEX 250MG *ER* TAB PO SCH (22:22)
[2019-04-25] MEDS: TAMSULOSIN 0.4 MG CAP PO SCH (22:22)
[2019-04-25] MEDS: lisinopriL 5 MG TAB PO SCH (22:23)
[2019-04-25] MEDS: VITAMIN D 1,000 INTERNATIONAL UNITS TABLET PO SCH (22:23)
[2019-04-25] MEDS: CYANOCOBALAMIN 500 MCG TAB PO SCH (22:23)
[2019-04-25] MEDS: amLODIPine 5 MG TAB PO SCH (22:23)
[2019-04-26 06:00] VITALS: BP 137/74
[2019-04-26] MEDS: ENOXAPARIN 30MG/0.3ML SYRINGE (J1650 PER 10MG) SC SCH (10:44)
[2019-04-26] MEDS: CETIRIZINE (ZyrTEC) 10 MG TAB PO SCH (10:44)
[2019-04-26] MEDS: VITAMIN D 1,000 INTERNATIONAL UNITS TABLET PO SCH (21:24)
[2019-04-26] MEDS: CYANOCOBALAMIN 500 MCG TAB PO SCH (21:24)
[2019-04-26] MEDS: DIVALPROEX 250MG *ER* TAB PO SCH (21:24)
[2019-04-26] MEDS: DONEPEZIL 5 MG TAB PO SCH (21:24)
[2019-04-26] MEDS: TAMSULOSIN 0.4 MG CAP PO SCH (21:24)
[2019-04-26] MEDS: amLODIPine 5 MG TAB PO SCH (21:25)
[2019-04-26] MEDS: lisinopriL 5 MG TAB PO SCH (21:25)
[2019-04-27 06:00] VITALS: BP 131/76
[2019-04-27] MEDS: CETIRIZINE (ZyrTEC) 10 MG TAB PO SCH (10:15)
[2019-04-27] MEDS: ENOXAPARIN 30MG/0.3ML SYRINGE (J1650 PER 10MG) SC SCH (11:13)
--- NOTE | 2019-04-27 13:06 | IPNPDOC ---
Subjective Date Seen The patient was seen on 04/27/19. Subjective Chief Complaint/HPI Cristian is sitting in chair, no family members are at the bedside. He is in no distress and has been awaiting placement for some time due to pending medicaid application. Objective Physical Examination General Exam: Positive: No Acute Distress ENT Exam: Positive: Atraumatic, Pharynx Normal Neck Exam: Positive: Supple; Negative: JVD, thyromegaly Chest Exam: Positive: Clear to auscultation, Normal air movement Heart Exam: Positive: Rate Normal, Regular Rhythm, Normal S1, Normal S2; Negative: Murmurs, Rubs Telemetry: Positive: No significant arrhythmia Abdomen Exam: Positive: Normal bowel sounds, Soft; Negative: Tenderness, Hepatospenomegaly Male Exam: Positive: Normal Genital Exam Extremity Exam: Positive: Normal pulses, Other (right foot 5th and 2nd digit dry gangrene); Negative: Clubbing, Cyanosis, Edema Skin Exam: Positive: Nl turgor and temperature; Negative: Rash, Breakdown Assessment /Plan Assessment # 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 - family has declined surgical intervention - he's HOD # 74 awaiting placement due to pending medicaid application - both podiatry and vascular were consulted during the initial days of hospitalization # Dementia - continue with aricept # HTN - controlled with lisinopril + norvasc - check am labs # BPH - continue flomax # Chronic COPD - stable no intervention warranted Plan/VTE VTE Prophylaxis Ordered?: Yes VS, I&O, 24H, Fishbone Vital Signs/I&O Vital Signs Date Time Temp Pulse Resp B/P (MAP) Pulse Ox O2 Delivery O2 Flow Rate FiO2 04/27/19 06:00 97.1 70 21 131/76 (94) 97 Room Air I&O- Last 24 Hours up to 6 AM 04/27/19 05:59 Intake Total 480 ml Balance 480 ml YRN STONER MD Apr 27, 2019 12:56
[2019-04-27] MEDS: TAMSULOSIN 0.4 MG CAP PO SCH (21:18)
[2019-04-27] MEDS: VITAMIN D 1,000 INTERNATIONAL UNITS TABLET PO SCH (21:18)
[2019-04-27] MEDS: DIVALPROEX 250MG *ER* TAB PO SCH (21:18)
[2019-04-27] MEDS: DONEPEZIL 5 MG TAB PO SCH (21:18)
[2019-04-27] MEDS: lisinopriL 5 MG TAB PO SCH (21:18)
[2019-04-27] MEDS: CYANOCOBALAMIN 500 MCG TAB PO SCH (21:18)
[2019-04-27] MEDS: amLODIPine 5 MG TAB PO SCH (21:18)
[2019-04-28 06:00] VITALS: BP 136/63
[2019-04-28 06:18] LABS: HEMATOCRIT 34.1 % (42.0-52.0); HEMOGLOBIN 10.7 g/dl (13.5-17.5); MEAN CORPUSCULAR HEMOGLOBIN 30.8 pg (27.0-33.0); MEAN CORPUSCULAR HGB CONC 31.4 g/dl (32.0-36.5); MEAN CORPUSCULAR VOLUME 98.3 fl (80.0-96.0); PLATELET COUNT, AUTOMATED 310 10^3/uL (150-450); RED BLOOD COUNT 3.47 10^6/uL (4.30-6.10); WHITE BLOOD COUNT 7.5 10^3/uL (4.0-10.0)
[2019-04-28 06:48] LABS: CALCIUM LEVEL 8.6 MG/DL (8.8-10.2); CREATININE FOR GFR 1.61 MG/DL (0.70-1.30); GLOMERULAR FILTRATION RATE 43.7 (>35)
[2019-04-28] MEDS: CETIRIZINE (ZyrTEC) 10 MG TAB PO SCH (08:02)
[2019-04-28] MEDS: ENOXAPARIN 30MG/0.3ML SYRINGE (J1650 PER 10MG) SC SCH (08:02)
[2019-04-28] MEDS: LR 1,000 ML IV SCH ×2 (09:18→20:48)
--- NOTE | 2019-04-28 13:08 | IPNPDOC ---
Subjective Date Seen The patient was seen on 04/28/19. Subjective Chief Complaint/HPI Cristian's 5th digit has partially amputated this morning. No other event reported. Objective Physical Examination General Exam: Positive: No Acute Distress ENT Exam: Positive: Atraumatic Neck Exam: Positive: Supple; Negative: JVD, thyromegaly Chest Exam: Positive: Clear to auscultation, Normal air movement Heart Exam: Positive: Rate Normal, Regular Rhythm, Normal S1, Normal S2; Negative: Murmurs, Rubs Telemetry: Positive: No significant arrhythmia Abdomen Exam: Positive: Normal bowel sounds, Soft; Negative: Tenderness, Hepatospenomegaly Male Exam: Positive: Normal Genital Exam Extremity Exam: Positive: Normal pulses, Other (right foot 5th and 2nd digit dry gangrene, 5th digit partially amputated.); Negative: Clubbing, Cyanosis, Edema Skin Exam: Positive: Nl turgor and temperature; Negative: Rash, Breakdown Assessment /Plan Assessment # 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 - family has declined surgical intervention - he's HOD # 75 awaiting placement due to pending medicaid application - both podiatry and vascular were consulted during the initial days of hospitalization - continue local wound care # Mild dehydration (Creat 1.6) - give IVF x 24 hours and recheck - encouraged increased po intake # Dementia - continue with aricept # HTN - controlled with lisinopril + norvasc - check am labs # BPH - continue flomax # Chronic COPD - stable no intervention warranted Plan/VTE VTE Prophylaxis Ordered?: Yes (lovenox 30 mg daily) VTE Exclusion Mechanical Proph: N/A:VTE Prophy Ordered VTE Exclusion Pharmacological: N/A:VTE Prophy Ordered VS, I&O, 24H, Fishbone Vital Signs/I&O Vital Signs Date Time Temp Pulse Resp B/P (MAP) Pulse Ox O2 Delivery O2 Flow Rate FiO2 04/28/19 06:00 97.0 60 18 136/63 (87) 96 Room Air I&O- Last 24 Hours up to 6 AM 04/28/19 06:00 Intake Total 840 ml Output Total 100 ml Balance 740 ml Laboratory Data 24H LABS Laboratory Tests 2 04/28/19 06:02: Nucleated Red Blood Cells % (auto) 0.0, Anion Gap 5L, Glomerular Filtration Rate 43.7, Calcium Level 8.6L CBC/BMP Laboratory Tests 04/28/19 06:02 YRN STONER MD Apr 28, 2019 13:08
[2019-04-28] MEDS: CYANOCOBALAMIN 500 MCG TAB PO SCH (20:46)
[2019-04-28] MEDS: DONEPEZIL 5 MG TAB PO SCH (20:46)
[2019-04-28] MEDS: VITAMIN D 1,000 INTERNATIONAL UNITS TABLET PO SCH (20:46)
[2019-04-28] MEDS: lisinopriL 5 MG TAB PO SCH (20:46)
[2019-04-28] MEDS: TAMSULOSIN 0.4 MG CAP PO SCH (20:47)
[2019-04-28] MEDS: DIVALPROEX 250MG *ER* TAB PO SCH (20:47)
[2019-04-28] MEDS: amLODIPine 5 MG TAB PO SCH (20:47)
[2019-04-29] VITALS (9 sets, daily range): BP systolic 72–141; BP diastolic 34–74
[2019-04-29 06:13] LABS: CALCIUM LEVEL 8.2 MG/DL (8.8-10.2); CREATININE FOR GFR 1.29 MG/DL (0.70-1.30); GLOMERULAR FILTRATION RATE 56.5 (>35)
[2019-04-29] MEDS: ENOXAPARIN 30MG/0.3ML SYRINGE (J1650 PER 10MG) SC SCH (08:49)
[2019-04-29] MEDS: CETIRIZINE (ZyrTEC) 10 MG TAB PO SCH (08:50)
[2019-04-29] MEDS: ACETAMINOPHEN TAB 650MG DOSE (2X325MG) PO PRN (08:51)
--- NOTE | 2019-04-29 10:52 | REP ---
Portable chest, 10:31 a.m., single AP view with the patient upright: Comparisons are 12/09/2018 and 05/06/2018. There are chronic bibasilar densities, unchanged, compatible with fibrosis. The interstitium is otherwise mildly coarsened chronically, also compatible with fibrosis and chronic lung disease. There are no acute infiltrates or pleural effusions. There are no masses or nodules. Cardiac size is upper normal, unchanged. The elvin, mediastinum, skeletal structures are unremarkable. Impression: There are chronic findings compatible with fibrosis and chronic lung disease. There are no new or acute cardiopulmonary findings. Electronically Signed by Jameson Alexander MD 04/29/2019 10:44 A
--- NOTE | 2019-04-29 12:12 | IPNPDOC ---
Subjective Date Seen The patient was seen on 04/29/19. Subjective Chief Complaint/HPI Cristian experienced a low BP this morning, his pressure has improved. He is asymptomatic during the event. Objective Physical Examination General Exam: Positive: No Acute Distress ENT Exam: Positive: Atraumatic Neck Exam: Positive: Supple; Negative: JVD, thyromegaly Chest Exam: Positive: Clear to auscultation, Normal air movement Heart Exam: Positive: Rate Normal, Regular Rhythm, Normal S1, Normal S2; Negative: Murmurs, Rubs Telemetry: Positive: No significant arrhythmia Abdomen Exam: Positive: Normal bowel sounds, Soft; Negative: Tenderness, Hepatospenomegaly Male Exam: Positive: Normal Genital Exam Extremity Exam: Positive: Normal pulses, Other (right foot 5th and 2nd digit dry gangrene, 5th digit partially amputated.); Negative: Clubbing, Cyanosis, Edema Skin Exam: Positive: Nl turgor and temperature; Negative: Rash, Breakdown Assessment /Plan Assessment # 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 - family has declined surgical intervention - he's HOD # 76 awaiting placement due to pending medicaid application - both podiatry and vascular were consulted during the initial days of hospitalization - continue local wound care # Mild dehydration (Creat 1.6) - resolved with fluid hydration - stop IVFs # Hypotension - likely multifactorial due to dehydration and combination of anti-hypertensive medications - monitor for now, if persists then check blood cultures. - consider stopping BP meds # Dementia - continue with aricept # HTN - on lisinopril + norvasc - with low BP will consider stopping and watching BP # BPH - continue flomax, but monitor therapy with sof tBP # Chronic COPD - stable no intervention warranted Plan/VTE VTE Prophylaxis Ordered?: Yes (lovenox 30 mg daily) VTE Exclusion Mechanical Proph: N/A:VTE Prophy Ordered VTE Exclusion Pharmacological: N/A:VTE Prophy Ordered VS, I&O, 24H, Fishbone Vital Signs/I&O Vital Signs Date Time Temp Pulse Resp B/P (MAP) Pulse Ox O2 Delivery O2 Flow Rate FiO2 04/29/19 09:30 98.1 62 22 82/48 (59) 90 Room Air I&O- Last 24 Hours up to 6 AM 04/29/19 06:00 Intake Total 2983 ml Output Total 0 ml Balance 2983 ml Laboratory Data 24H LABS Laboratory Tests 2 1/30/20 05:36: Anion Gap 4L, Glomerular Filtration Rate 56.5, Calcium Level 8.2L CBC/BMP Laboratory Tests 04/29/19 05:36 YRN STONER MD Apr 29, 2019 12:12
[2019-04-29] MEDS ORDERED: LR 1,000 ML IV ONE (14:30)
[2019-04-29 15:12] LABS: HEMATOCRIT 28.7 % (42.0-52.0); HEMOGLOBIN 9.3 g/dl (13.5-17.5); MEAN CORPUSCULAR HEMOGLOBIN 31.8 pg (27.0-33.0); MEAN CORPUSCULAR HGB CONC 32.4 g/dl (32.0-36.5); MEAN CORPUSCULAR VOLUME 98.3 fl (80.0-96.0); PLATELET COUNT, AUTOMATED 311 10^3/uL (150-450); RED BLOOD COUNT 2.92 10^6/uL (4.30-6.10); WHITE BLOOD COUNT 8.7 10^3/uL (4.0-10.0)
--- NOTE | 2019-04-29 15:12 | PHACANCOPD ---
PHARMACY VANCOMYCIN DOSING Pt Demographics Demographics Patient Age:83 , Weight:58.700 , Gender: male Adjusted Body Weight Date: 02/12/19, Adjusted Body Weight: [55.48] Kg(ACTUAL) Vancomycin Vancomycin indication: GANGRENE TOES Vancomycin Target Ranges: 15-20 mcg/ml Vancomycin Load Y/N: No Load Dose Date Time Vancomycin Load Dose: 1250 MG Date: 04/29/19 Time:1600 Vancomycin Dose Date: 04/29/19. Current Vancomycin Dose: [750 MG IV Q24H] Intermittent Dosing?: No Labs Micro Microbiology 04/29/19 Blood Culture, Received Pending Creatinine Clearance Assessment and Plan Maintaining Current Dose?: Yes Reason for dose change: No Dose Change Pharmacist Note Pharmacist Note Date: 04/29/19. Pharmacist note: Pharmacy consulted for Vancomycin dosing with a goal trough of 15-20 mcg/ml. Patient does have a history of Vanco here at [facility], we'll load him with 1250 mg and follow with 750 mg IV q24h. Pharmacy will continue to monitor and make adjustments as needed. [facility] Apr 29, 2019 15:12
[2019-04-29 15:29] LABS: APPEARANCE, URINE CLEAR (CLEAR); BACTERIA, URINE AUTO NEGATIVE (NEGATIVE); BILIRUBIN, URINE AUTO NEGATIVE (NEGATIVE); BLOOD, URINE BLOOD 1+ (NEGATIVE); COLOR, URINE YELLOW (YELLOW); GLUCOSE, URINE (UA) AUTO NEGATIVE (NEGATIVE); KETONE, URINE AUTO NEGATIVE (NEGATIVE); LEUKOCYTE ESTERASE, URINE AUTO NEGATIVE (NEGATIVE); MUCUS, URINE SMALL (NEGATIVE); NITRITE, URINE AUTO NEGATIVE (NEGATIVE); PROTEIN, URINE AUTO NEGATIVE (NEGATIVE); RBC, URINE AUTO 9 /HPF (0-3); SPECIFIC GRAVITY URINE AUTO 1.018 (1.002-1.035); SQUAMOUS EPITHELIAL CELL UR AU 0 /HPF (0-6); UROBILINOGEN, URINE AUTO 0.2 mg/dL (0.0-2.0); WBC, URINE AUTO 2 /HPF (0-3)
[2019-04-29] MEDS: PIPERACILLIN/TAZOBACTAM SOD 3.375 GM in D5W MINI-BAG PLUS 50 ML IV SCH ×2 (15:57→21:36)
[2019-04-29] MEDS ORDERED: VANCOMYCIN HCL 750 MG, VIAL MATE ADAPTER 1 EACH in D5W 250 ML IV SCH (16:00)
[2019-04-29] MEDS: LR 1,000 ML IV SCH ×2 (16:50→21:37)
[2019-04-29] MEDS ORDERED: VANCOMYCIN HCL 500 MG in D5W MINI-BAG PLUS 100 ML IV ONE (17:00)
[2019-04-29] MEDS: DONEPEZIL 5 MG TAB PO SCH (21:36)
[2019-04-29] MEDS: VITAMIN D 1,000 INTERNATIONAL UNITS TABLET PO SCH (21:36)
[2019-04-29] MEDS: DIVALPROEX 250MG *ER* TAB PO SCH (21:36)
[2019-04-29] MEDS: TAMSULOSIN 0.4 MG CAP PO SCH (21:36)
[2019-04-29] MEDS: CYANOCOBALAMIN 500 MCG TAB PO SCH (21:37)
[2019-04-30] MEDS: PIPERACILLIN/TAZOBACTAM SOD 3.375 GM in D5W MINI-BAG PLUS 50 ML IV SCH ×4 (03:50→20:47)
[2019-04-30] MEDS: LR 1,000 ML IV SCH ×2 (05:20→19:00)
[2019-04-30 05:59] LABS: HEMATOCRIT 32.1 % (42.0-52.0); HEMOGLOBIN 10.6 g/dl (13.5-17.5); PLATELET COUNT, AUTOMATED 299 10^3/uL (150-450); RED BLOOD COUNT 3.31 10^6/uL (4.30-6.10)
[2019-04-30 06:00] VITALS: BP 133/81
[2019-04-30 06:18] LABS: CALCIUM LEVEL 8.4 MG/DL (8.8-10.2); CREATININE FOR GFR 1.47 MG/DL (0.70-1.30); GLOMERULAR FILTRATION RATE 48.6 (>35)
[2019-04-30] MEDS: ENOXAPARIN 30MG/0.3ML SYRINGE (J1650 PER 10MG) SC SCH (08:01)
[2019-04-30] MEDS: CETIRIZINE (ZyrTEC) 10 MG TAB PO SCH (08:01)
--- NOTE | 2019-04-30 12:09 | IPNPDOC ---
Subjective Date Seen The patient was seen on 04/30/19. Subjective Chief Complaint/HPI Cristian's BP has remained stable overnight, and has not dropped further. He's afebrile. Objective Physical Examination General Exam: Positive: Alert, Cooperative, No Acute Distress Eye Exam: Positive: PERRLA, EOMI; Negative: Sclera icteric ENT Exam: Positive: Atraumatic Neck Exam: Positive: Supple; Negative: JVD, thyromegaly Chest Exam: Positive: Clear to auscultation, Normal air movement Heart Exam: Positive: Rate Normal, Regular Rhythm, Normal S1, Normal S2; Negative: Murmurs, Rubs Telemetry: Positive: No significant arrhythmia Abdomen Exam: Positive: Normal bowel sounds, Soft; Negative: Tenderness, Hepatospenomegaly Male Exam: Positive: Normal Genital Exam Extremity Exam: Positive: Normal pulses, Other (right foot 5th and 2nd digit dry gangrene, 5th digit partially amputated.); Negative: Clubbing, Cyanosis, Edema Skin Exam: Positive: Nl turgor and temperature, Other skin issue (Toe with mild surrounding erythema, and anaerobic odor, no pus noted); Negative: Rash, Breakdown Assessment /Plan Assessment # 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 - family has declined surgical intervention - he's HOD # 77 awaiting placement due to pending medicaid application - both podiatry and vascular were consulted during the initial days of hospitalization - continue local wound care # Hypotension - likely multifactorial due to dehydration and combination of anti-hypertensive medications - BP meds stopped - IVF rate decreased this am - b.cx no growth yet - continue zosyn for another 24 hours until b.cx results back - can stop vancomycin # Dementia - continue with aricept # HTN - stopped lisinopril + norvasc due to hypotension # BPH - continue flomax # Chronic COPD - stable no intervention warranted Plan/VTE VTE Prophylaxis Ordered?: Yes (lovenox 30 mg daily) VTE Exclusion Mechanical Proph: N/A:VTE Prophy Ordered VTE Exclusion Pharmacological: N/A:VTE Prophy Ordered VS, I&O, 24H, Fishbone Vital Signs/I&O Vital Signs Date Time Temp Pulse Resp B/P (MAP) Pulse Ox O2 Delivery O2 Flow Rate FiO2 04/30/19 06:00 97.0 58 20 133/81 (98) 93 04/29/19 14:50 Room Air I&O- Last 24 Hours up to 6 AM 04/30/19 06:00 Intake Total 2750 ml Output Total 0 ml Balance 2750 ml Laboratory Data 24H LABS Laboratory Tests 2 04/29/19 14:55: Nucleated Red Blood Cells % (auto) 0.0, Lactic Acid Level 2.6*H 04/29/19 15:12: Urine Color YELLOW, Urine Appearance CLEAR, Urine pH 5.0, Urine Specific [place] 1.018, Urine Protein NEGATIVE, Urine Glucose (Auto)(UA) NEGATIVE, Urine Ketones (Auto) NEGATIVE, Urine Blood 1+H, Urine Nitrite NEGATIVE, Urine Bilirubin NEGATIVE, Urine Urobilinogen 0.2, Urine Leukocyte Esterase (Auto) NEGATIVE, Urine WBC (Auto) 2, Urine RBC (Auto) 9H, Urine Hyaline Casts (Auto) 5, Urine Bacteria (Auto) NEGATIVE, Urine Squamous Epithelial Cells 0, Urine Mucus (Auto) SMALL, Urine Sperm (Auto) 04/29/19 18:52: Lactic Acid Level 2.6*H 04/29/19 23:14: Lactic Acid Followup at 4 Hours 1.2 04/30/19 05:31: Nucleated Red Blood Cells % (auto) 0.0, Anion Gap 2L, Glomerular Filtration Rate 48.6, Calcium Level 8.4L CBC/BMP Laboratory Tests 04/29/19 14:55 04/30/19 05:31 Microbiology Microbiology 04/29/19 Urine Culture, Received Pending 04/29/19 Blood Culture, Received Pending YRN STONER MD Apr 30, 2019 12:09
[2019-04-30 14:00] VITALS: BP 128/51
[2019-04-30] MEDS: VITAMIN D 1,000 INTERNATIONAL UNITS TABLET PO SCH (20:47)
[2019-04-30] MEDS: DONEPEZIL 5 MG TAB PO SCH (20:48)
[2019-04-30] MEDS: CYANOCOBALAMIN 500 MCG TAB PO SCH (20:48)
[2019-04-30] MEDS: TAMSULOSIN 0.4 MG CAP PO SCH (20:48)
[2019-04-30] MEDS: DIVALPROEX 250MG *ER* TAB PO SCH (20:48)
[2019-04-30 22:00] VITALS: BP 158/58
[2019-05-01] MEDS: PIPERACILLIN/TAZOBACTAM SOD 3.375 GM in D5W MINI-BAG PLUS 50 ML IV SCH (03:19)
[2019-05-01 06:00] VITALS: BP 140/58
[2019-05-01] MEDS: ENOXAPARIN 30MG/0.3ML SYRINGE (J1650 PER 10MG) SC SCH (11:22)
[2019-05-01] MEDS: CETIRIZINE (ZyrTEC) 10 MG TAB PO SCH (11:22)
[2019-05-01] MEDS: AUGMENTIN 500 MG TAB PO SCH ×2 (11:22→21:03)
[2019-05-01 11:51] VITALS: BP 140/58
--- NOTE | 2019-05-01 12:52 | IPNPDOC ---
Subjective Date Seen The patient was seen on 05/01/19. Subjective Chief Complaint/HPI Cristian is grumpy this morning. BP has remained stable w/o any dips. His right foot has more pus drainage Objective Physical Examination General Exam: Positive: Alert, Cooperative, No Acute Distress Eye Exam: Positive: PERRLA, EOMI; Negative: Sclera icteric ENT Exam: Positive: Atraumatic Neck Exam: Positive: Supple; Negative: JVD, thyromegaly Chest Exam: Positive: Clear to auscultation, Normal air movement Heart Exam: Positive: Rate Normal, Regular Rhythm, Normal S1, Normal S2; Negative: Murmurs, Rubs Telemetry: Positive: No significant arrhythmia Abdomen Exam: Positive: Normal bowel sounds, Soft; Negative: Tenderness, Hepatospenomegaly Male Exam: Positive: Normal Genital Exam Extremity Exam: Positive: Normal pulses, Other (right foot 5th and 2nd digit dry gangrene, 5th digit partially amputated.); Negative: Clubbing, Cyanosis, Edema Skin Exam: Positive: Nl turgor and temperature, Other skin issue (Toe with mild surrounding erythema, and anaerobic odor, no pus noted); Negative: Rash, Breakdown Assessment /Plan Assessment # 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 # Right foot infection - family has declined surgical intervention - he's HOD # 78 awaiting placement due to pending medicaid application - both podiatry and vascular were consulted during the initial days of hospitalization - continue local wound care - change to Augmentin + Flagyl, wound cx pending - wound care # Hypotension - likely multifactorial due to dehydration and combination of anti-hypertensive medications - BP meds stopped - stop IVFs - b.cx no growth yet - discontinue zosyn and switch to oral abx # Dementia - continue with aricept # HTN - stopped lisinopril + norvasc due to hypotension # BPH - continue flomax # Chronic COPD - stable no intervention warranted Plan/VTE VTE Prophylaxis Ordered?: Yes (lovenox 30 mg daily) VTE Exclusion Mechanical Proph: N/A:VTE Prophy Ordered VTE Exclusion Pharmacological: N/A:VTE Prophy Ordered VS, I&O, 24H, Fishbone Vital Signs/I&O Vital Signs Date Time Temp Pulse Resp B/P (MAP) Pulse Ox O2 Delivery O2 Flow Rate FiO2 05/01/19 11:51 99.5 53 17 140/58 93 Room Air I&O- Last 24 Hours up to 6 AM 05/01/19 06:00 Intake Total 2210 ml Output Total 1850 ml Balance 360 ml Laboratory Data Microbiology Microbiology 04/29/19 Urine Culture - Final, Complete 04/29/19 Blood Culture - Preliminary, Resulted No growth after 24 hours . All specim... YRN STONER MD May 01, 2019 12:52
[2019-05-01 14:00] VITALS: BP 142/49
[2019-05-01] MEDS: metroNIDAZOLE (FLAGYL) 500MG TABLET PO SCH ×2 (14:10→21:03)
[2019-05-01] MEDS ORDERED: AUGMENTIN 875 MG TAB PO SCH (21:00)
[2019-05-01] MEDS: DIVALPROEX 250MG *ER* TAB PO SCH (21:03)
[2019-05-01] MEDS: DONEPEZIL 5 MG TAB PO SCH (21:03)
[2019-05-01] MEDS: CYANOCOBALAMIN 500 MCG TAB PO SCH (21:03)
[2019-05-01] MEDS: TAMSULOSIN 0.4 MG CAP PO SCH (21:03)
[2019-05-01] MEDS: VITAMIN D 1,000 INTERNATIONAL UNITS TABLET PO SCH (21:03)
[2019-05-01 22:00] VITALS: BP 160/62
[2019-05-02] MEDS: metroNIDAZOLE (FLAGYL) 500MG TABLET PO SCH ×3 (05:38→21:35)
[2019-05-02 06:04] LABS: HEMATOCRIT 31.6 % (42.0-52.0); HEMOGLOBIN 10.6 g/dl (13.5-17.5); MEAN CORPUSCULAR HEMOGLOBIN 31.9 pg (27.0-33.0); MEAN CORPUSCULAR HGB CONC 33.5 g/dl (32.0-36.5); MEAN CORPUSCULAR VOLUME 95.2 fl (80.0-96.0); PLATELET COUNT, AUTOMATED 294 10^3/uL (150-450); RED BLOOD COUNT 3.32 10^6/uL (4.30-6.10); WHITE BLOOD COUNT 8.9 10^3/uL (4.0-10.0)
[2019-05-02 06:26] LABS: CALCIUM LEVEL 8.6 MG/DL (8.8-10.2); CREATININE FOR GFR 1.3 MG/DL (0.70-1.30); POTASSIUM SERUM 3.8 MEQ/L (3.5-5.1)
[2019-05-02] MEDS: CETIRIZINE (ZyrTEC) 10 MG TAB PO SCH (09:06)
[2019-05-02] MEDS: AUGMENTIN 500 MG TAB PO SCH ×2 (09:06→21:35)
[2019-05-02] MEDS: ENOXAPARIN 30MG/0.3ML SYRINGE (J1650 PER 10MG) SC SCH (09:06)
--- NOTE | 2019-05-02 12:17 | IPNPDOC ---
Subjective Date Seen The patient was seen on 05/02/19. Subjective Chief Complaint/HPI Cristian is fine this morning, reports his cough is better. His BP has remained stable since stopping BP meds, and IVFs. No fever overnight. Objective Physical Examination General Exam: Positive: Alert, Cooperative, No Acute Distress Eye Exam: Positive: PERRLA, EOMI; Negative: Sclera icteric ENT Exam: Positive: Atraumatic Neck Exam: Positive: Supple; Negative: JVD, thyromegaly Chest Exam: Positive: Clear to auscultation, Normal air movement Heart Exam: Positive: Rate Normal, Regular Rhythm, Normal S1, Normal S2; Negative: Murmurs, Rubs Telemetry: Positive: No significant arrhythmia Abdomen Exam: Positive: Normal bowel sounds, Soft; Negative: Tenderness, Hepatospenomegaly Male Exam: Positive: Normal Genital Exam Extremity Exam: Positive: Normal pulses, Other (right foot 5th and 2nd digit dry gangrene, 5th digit partially amputated.); Negative: Clubbing, Cyanosis, Edema Skin Exam: Positive: Nl turgor and temperature, Other skin issue (Toe looks fine no pus drainage noted, wound is wet in appearance, necrotic toe remains partially attached.); Negative: Rash, Breakdown Assessment /Plan Assessment # 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 # Right foot infection - family has declined surgical intervention - HOD # 79 awaiting placement due to pending medicaid application - both podiatry and vascular were consulted during the initial days of hospitalization - continue local wound care - change to Augmentin + Flagyl, wound cx thus far no growth, gram stain normal, can discontinue abx when cx finalized # Hypotension - likely multifactorial due to dehydration and combination of anti-hypertensive medications - BP meds stopped, can consider resuming at lower doses in next 24 hours - stop IVFs - b.cx no growth to date # Dementia - continue with aricept # HTN - stopped lisinopril + norvasc due to hypotension # BPH - continue flomax # Chronic COPD - stable no intervention warranted Plan/VTE VTE Prophylaxis Ordered?: Yes (lovenox 30 mg daily) VTE Exclusion Mechanical Proph: N/A:VTE Prophy Ordered VTE Exclusion Pharmacological: N/A:VTE Prophy Ordered VS, I&O, 24H, Fishbone Vital Signs/I&O Vital Signs Date Time Temp Pulse Resp B/P (MAP) Pulse Ox O2 Delivery O2 Flow Rate FiO2 05/02/19 09:20 15 05/01/19 22:00 98.7 68 160/62 (94) 91 Room Air I&O- Last 24 Hours up to 6 AM 05/02/19 06:00 Intake Total 456 ml Output Total 400 ml Balance 56 ml Laboratory Data 24H LABS Laboratory Tests 2 05/02/19 05:47: Nucleated Red Blood Cells % (auto) 0.0, Anion Gap 5L, Glomerular Filtration Rate 56.0, Calcium Level 8.6L CBC/BMP Laboratory Tests 05/02/19 05:47 Microbiology Microbiology 05/01/19 Gram Stain - Final, Resulted 05/01/19 Wound Culture, Resulted Pending 04/29/19 Urine Culture - Final, Complete 04/29/19 Blood Culture - Preliminary, Resulted No Growth after 48 hours. All Specime... YRN STONER MD May 02, 2019 12:17
[2019-05-02 14:00] VITALS: BP 154/62
[2019-05-02 21:15] VITALS: BP 172/63
[2019-05-02] MEDS: DONEPEZIL 5 MG TAB PO SCH (21:34)
[2019-05-02] MEDS: VITAMIN D 1,000 INTERNATIONAL UNITS TABLET PO SCH (21:35)
[2019-05-02] MEDS: DIVALPROEX 250MG *ER* TAB PO SCH (21:35)
[2019-05-02] MEDS: CYANOCOBALAMIN 500 MCG TAB PO SCH (21:35)
[2019-05-02] MEDS: TAMSULOSIN 0.4 MG CAP PO SCH (21:35)
[2019-05-02 22:40] VITALS: BP 166/62
[2019-05-02] MEDS ORDERED: amLODIPine 5 MG TAB PO ONE (23:00)
[2019-05-03 06:00] VITALS: BP 135/70
[2019-05-03] MEDS: metroNIDAZOLE (FLAGYL) 500MG TABLET PO SCH (06:56)
[2019-05-03] MEDS: CETIRIZINE (ZyrTEC) 10 MG TAB PO SCH (10:01)
[2019-05-03] MEDS: lisinopriL 10 MG TAB PO SCH (10:01)
[2019-05-03] MEDS: amLODIPine 10 MG TAB PO SCH (10:01)
[2019-05-03] MEDS: AUGMENTIN 500 MG TAB PO SCH ×2 (10:01→21:40)
[2019-05-03] MEDS: ENOXAPARIN 30MG/0.3ML SYRINGE (J1650 PER 10MG) SC SCH (10:01)
--- NOTE | 2019-05-03 11:42 | IPNPDOC ---
Subjective Date Seen The patient was seen on 05/03/19. Subjective Chief Complaint/HPI Cristian's BP is elevated this morning. He's sitting in chair eating breakfast. Appears comfortable, c/o constipation. Objective Physical Examination General Exam: Positive: Alert, Cooperative, No Acute Distress Eye Exam: Positive: PERRLA, EOMI; Negative: Sclera icteric ENT Exam: Positive: Atraumatic Neck Exam: Positive: Supple; Negative: JVD, thyromegaly Chest Exam: Positive: Clear to auscultation, Normal air movement Heart Exam: Positive: Rate Normal, Regular Rhythm, Normal S1, Normal S2; Negative: Murmurs, Rubs Telemetry: Positive: No significant arrhythmia Abdomen Exam: Positive: Normal bowel sounds, Soft; Negative: Tenderness, Hepatospenomegaly Male Exam: Positive: Normal Genital Exam Extremity Exam: Positive: Normal pulses, Other (right foot 5th and 2nd digit dry gangrene, 5th digit partially amputated.); Negative: Clubbing, Cyanosis, Edema Skin Exam: Positive: Nl turgor and temperature, Other skin issue (Toe looks fine no pus drainage noted, wound is wet in appearance, necrotic toe remains partially attached.); Negative: Rash, Breakdown Assessment /Plan Assessment # 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 # Right foot infection (Cx + enterococcus and corynebacterium) - family has declined surgical intervention - HOD # 80 awaiting placement due to pending medicaid application - both podiatry and vascular were consulted during the initial days of hospitalization - continue local wound care - continue Augmentin, stop flagyl, no anaerobes isolated - can change back to [facility] status # Hypotension - likely multifactorial due to dehydration and combination of anti-hypertensive medications - BP elevated now, will resume norvasc 10 mg daily, and lower dose of lisinopril 10 mg daily - b.cx no growth to date # Dementia - continue with aricept # HTN - resuming BP meds see above # BPH - continue flomax # Chronic COPD - stable no intervention warranted Plan/VTE VTE Prophylaxis Ordered?: Yes (lovenox 30 mg daily) VTE Exclusion Mechanical Proph: N/A:VTE Prophy Ordered VTE Exclusion Pharmacological: N/A:VTE Prophy Ordered VS, I&O, 24H, Fishbone Vital Signs/I&O Vital Signs Date Time Temp Pulse Resp B/P (MAP) Pulse Ox O2 Delivery O2 Flow Rate FiO2 05/03/19 06:00 98.5 59 15 135/70 (91) 91 Room Air I&O- Last 24 Hours up to 6 AM 05/03/19 06:00 Intake Total 920 ml Output Total 300 ml Balance 620 ml Laboratory Data Microbiology Microbiology 05/01/19 Gram Stain - Final, Complete 05/01/19 Wound Culture - Final, Complete Corynebacterium Species Enterococcus Faecalis 04/29/19 Urine Culture - Final, Complete 04/29/19 Blood Culture - Preliminary, Resulted No Growth after 72 hours. All specime... YRN STONER MD May 03, 2019 11:42
[2019-05-03] MEDS ORDERED: DOCUSATE SODIUM 100 MG CAP PO PRN (11:45)
[2019-05-03 14:00] VITALS: BP 110/69
[2019-05-03] MEDS: DIVALPROEX 250MG *ER* TAB PO SCH (21:39)
[2019-05-03] MEDS: CYANOCOBALAMIN 500 MCG TAB PO SCH (21:40)
[2019-05-03] MEDS: VITAMIN D 1,000 INTERNATIONAL UNITS TABLET PO SCH (21:40)
[2019-05-03] MEDS: DONEPEZIL 5 MG TAB PO SCH (21:40)
[2019-05-03] MEDS: TAMSULOSIN 0.4 MG CAP PO SCH (21:40)
[2019-05-03 22:00] VITALS: BP 125/60
[2019-05-04 06:00] VITALS: BP 129/64
[2019-05-04] MEDS: ENOXAPARIN 30MG/0.3ML SYRINGE (J1650 PER 10MG) SC SCH (10:17)
[2019-05-04] MEDS: amLODIPine 10 MG TAB PO SCH (10:18)
[2019-05-04] MEDS: AUGMENTIN 500 MG TAB PO SCH ×2 (10:18→21:52)
[2019-05-04] MEDS: CETIRIZINE (ZyrTEC) 10 MG TAB PO SCH (10:18)
[2019-05-04] MEDS: lisinopriL 10 MG TAB PO SCH (10:19)
[2019-05-04 14:00] VITALS: BP 124/65
[2019-05-04] MEDS: CYANOCOBALAMIN 500 MCG TAB PO SCH (21:52)
[2019-05-04] MEDS: VITAMIN D 1,000 INTERNATIONAL UNITS TABLET PO SCH (21:52)
[2019-05-04] MEDS: DONEPEZIL 5 MG TAB PO SCH (21:52)
[2019-05-04] MEDS: DIVALPROEX 250MG *ER* TAB PO SCH (21:52)
[2019-05-04] MEDS: TAMSULOSIN 0.4 MG CAP PO SCH (21:52)
[2019-05-04 22:00] VITALS: BP 117/55
[2019-05-05 06:00] VITALS: BP 146/57
[2019-05-05] MEDS: AUGMENTIN 500 MG TAB PO SCH ×2 (08:40→20:21)
[2019-05-05] MEDS: CETIRIZINE (ZyrTEC) 10 MG TAB PO SCH (08:40)
[2019-05-05] MEDS: ENOXAPARIN 30MG/0.3ML SYRINGE (J1650 PER 10MG) SC SCH (08:47)
[2019-05-05] MEDS: lisinopriL 10 MG TAB PO SCH (08:58)
[2019-05-05 09:00] VITALS: BP 98/48
[2019-05-05] MEDS: amLODIPine 10 MG TAB PO SCH (09:00)
[2019-05-05 10:30] VITALS: BP 112/52
[2019-05-05 14:00] VITALS: BP 127/56
[2019-05-05] MEDS: DIVALPROEX 250MG *ER* TAB PO SCH (20:21)
[2019-05-05] MEDS: DONEPEZIL 5 MG TAB PO SCH (20:21)
[2019-05-05] MEDS: VITAMIN D 1,000 INTERNATIONAL UNITS TABLET PO SCH (20:21)
[2019-05-05] MEDS: CYANOCOBALAMIN 500 MCG TAB PO SCH (20:21)
[2019-05-05] MEDS: TAMSULOSIN 0.4 MG CAP PO SCH (20:21)
[2019-05-06 06:00] VITALS: BP 141/63
[2019-05-06] MEDS: AUGMENTIN 500 MG TAB PO SCH ×2 (08:31→20:31)
[2019-05-06] MEDS: lisinopriL 10 MG TAB PO SCH (08:31)
[2019-05-06] MEDS: ENOXAPARIN 30MG/0.3ML SYRINGE (J1650 PER 10MG) SC SCH (08:31)
[2019-05-06] MEDS: CETIRIZINE (ZyrTEC) 10 MG TAB PO SCH (08:31)
[2019-05-06] MEDS: amLODIPine 10 MG TAB PO SCH (08:31)
[2019-05-06] MEDS: VITAMIN D 1,000 INTERNATIONAL UNITS TABLET PO SCH (20:31)
[2019-05-06] MEDS: TAMSULOSIN 0.4 MG CAP PO SCH (20:31)
[2019-05-06] MEDS: DONEPEZIL 5 MG TAB PO SCH (20:32)
[2019-05-06] MEDS: CYANOCOBALAMIN 500 MCG TAB PO SCH (20:32)
[2019-05-06] MEDS: DIVALPROEX 250MG *ER* TAB PO SCH (21:09)
[2019-05-07 06:00] VITALS: BP 173/80
[2019-05-07] MEDS: CETIRIZINE (ZyrTEC) 10 MG TAB PO SCH (08:07)
[2019-05-07] MEDS: lisinopriL 10 MG TAB PO SCH (08:07)
[2019-05-07] MEDS: ENOXAPARIN 30MG/0.3ML SYRINGE (J1650 PER 10MG) SC SCH (08:07)
[2019-05-07] MEDS: amLODIPine 10 MG TAB PO SCH (08:07)
[2019-05-07] MEDS: AUGMENTIN 500 MG TAB PO SCH ×2 (08:07→19:42)
[2019-05-07] MEDS: DONEPEZIL 5 MG TAB PO SCH (19:41)
[2019-05-07] MEDS: TAMSULOSIN 0.4 MG CAP PO SCH (19:41)
[2019-05-07] MEDS: CYANOCOBALAMIN 500 MCG TAB PO SCH (19:41)
[2019-05-07] MEDS: DIVALPROEX 250MG *ER* TAB PO SCH (19:42)
[2019-05-07] MEDS: VITAMIN D 1,000 INTERNATIONAL UNITS TABLET PO SCH (19:42)
[2019-05-08 06:00] VITALS: BP 148/61
[2019-05-08] MEDS: AUGMENTIN 500 MG TAB PO SCH ×2 (08:19→19:47)
[2019-05-08] MEDS: ENOXAPARIN 30MG/0.3ML SYRINGE (J1650 PER 10MG) SC SCH (08:19)
[2019-05-08] MEDS: CETIRIZINE (ZyrTEC) 10 MG TAB PO SCH (08:19)
[2019-05-08] MEDS: amLODIPine 10 MG TAB PO SCH (08:23)
[2019-05-08] MEDS: lisinopriL 10 MG TAB PO SCH (08:23)
[2019-05-08] MEDS: TAMSULOSIN 0.4 MG CAP PO SCH (19:46)
[2019-05-08] MEDS: CYANOCOBALAMIN 500 MCG TAB PO SCH (19:46)
[2019-05-08] MEDS: VITAMIN D 1,000 INTERNATIONAL UNITS TABLET PO SCH (19:47)
[2019-05-08] MEDS: DIVALPROEX 250MG *ER* TAB PO SCH (19:47)
[2019-05-08] MEDS: DONEPEZIL 5 MG TAB PO SCH (19:47)
[2019-05-08 22:00] VITALS: BP 118/62
[2019-05-09 06:00] VITALS: BP 158/61
[2019-05-09] MEDS: ENOXAPARIN 30MG/0.3ML SYRINGE (J1650 PER 10MG) SC SCH (08:35)
[2019-05-09] MEDS: amLODIPine 10 MG TAB PO SCH (08:35)
[2019-05-09] MEDS: CETIRIZINE (ZyrTEC) 10 MG TAB PO SCH (08:35)
[2019-05-09] MEDS: lisinopriL 10 MG TAB PO SCH ×2 (08:35→20:13)
--- NOTE | 2019-05-09 10:05 | IPNPDOC ---
Subjective Date Seen The patient was seen on 05/09/19. Subjective Chief Complaint/HPI Patient is comfortable offers no new complaints. He tended to have a low blood pressure in the morning before he gets his tablets every day since last 2 days. Patient is asymptomatic General: Denies: ROS Unobtainable, Chills, Night Sweats, Fatigue, Malaise, Normal Appetite, Other Symptoms Constitutional: Denies: Chills, Fever, Malaise, Night Sweats, Weakness, Fatigue, Weight Loss, Lethargy, Other Pulmonary: Denies: Dyspnea, Cough, Pleuritic Chest Pain, Other Symptoms Cardiovascular: Denies: Chest Pain, Palpitations, Orthopnea, Paroxysmal Noc. Dyspnea, Edema, Lt Headedness, Other Symptoms Gastrointestinal: Denies: Nausea, Vomiting, Abdominal Pain, Diarrhea, Constipation, Melena, Hematochezia, Other Symptoms Musculoskeletal: Denies: Neck Pain, Back Pain, Shoulder Pain, Arm Pain, Hand Pain, Leg Pain, Foot Pain, Joint Pain, Muscle Pain, Spasms, Other Symptoms Neurological: Denies: Weakness, Numbness, Incoordination, Change in speech, Confusion, Seizures, Other Symptoms Psych: Denies: Mood Normal, Anxiety, Depression, Memory Issues, Thoughts of Self Harm, Anger, Thoughts of Harming Other, Other Psych Objective Physical Examination Neck Exam: Positive: Supple Chest Exam: Positive: Clear to auscultation, Normal air movement Heart Exam: Positive: Rate Normal, Regular Rhythm, Normal S1, Normal S2 Telemetry: Positive: No significant arrhythmia Abdomen Exam: Positive: Normal bowel sounds, Soft Male Exam: Positive: Normal Genital Exam Extremity Exam: Positive: Normal pulses, Other (right foot 5th and 2nd digit dry gangrene, 5th digit partially amputated.) Skin Exam: Positive: Nl turgor and temperature, Other skin issue (Toe looks fine no pus drainage noted, wound is wet in appearance, necrotic toe remains partially attached.) Assessment /Plan Problems (1) Gangrene of toe of right foot Status: Acute Problem Text: 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 # Right foot infection (Cx + enterococcus and corynebacterium) - family has declined surgical intervention - HOD # 80 awaiting placement due to pending medicaid application - both podiatry and vascular were consulted during the initial days of hospitalization - continue local wound care -Augmentin and Flagyl, both were stopped -[facility] -Awaiting placement in a rehabilitation facility (2) Cellulitis of fifth toe of right foot Status: Resolved Problem Text: As above (3) HTN (hypertension) Status: Chronic Problem Text: Change lisinopril to 10 mg by mouth every PM Change Norvasc to 5 mg by mouth every morning Will monitor blood pressure readings and adjust dose and timing accordingly (4) BPH (benign prostatic hyperplasia) Status: Chronic Problem Text: Continue home meds (5) Dementia Status: Chronic Problem Text: Continue home meds Plan/VTE VTE Prophylaxis Ordered?: Yes (lovenox 30 mg daily) VTE Exclusion Mechanical Proph: N/A:VTE Prophy Ordered VTE Exclusion Pharmacological: N/A:VTE Prophy Ordered Plan # Hypotension - likely multifactorial due to dehydration and combination of anti-hypertensive medications - BP elevated now, will resume norvasc 10 mg daily, and lower dose of lisinopril 10 mg daily - b.cx no growth to date # Dementia - continue with aricept # HTN - resuming BP meds see above # BPH - continue flomax # Chronic COPD - stable no intervention warranted VS, I&O, 24H, Fishbone Vital Signs/I&O Vital Signs Date Time Temp Pulse Resp B/P (MAP) Pulse Ox O2 Delivery O2 Flow Rate FiO2 05/09/19 08:35 99/47 05/09/19 08:35 55 05/09/19 06:00 98.2 18 90 Room Air I&O- Last 24 Hours up to 6 AM 05/09/19 06:00 Intake Total 760 ml Output Total 75 ml Balance 685 ml Laboratory Data Microbiology Microbiology 05/01/19 Gram Stain - Final, Complete 05/01/19 Wound Culture - Final, Complete Corynebacterium Species Enterococcus Faecalis 04/29/19 Urine Culture - Final, Complete 04/29/19 Blood Culture - Final, Complete NO GROWTH AFTER 5 DAYS ALVERTO EDDY MD May 09, 2019 10:05
[2019-05-09] MEDS: DONEPEZIL 5 MG TAB PO SCH (20:12)
[2019-05-09] MEDS: VITAMIN D 1,000 INTERNATIONAL UNITS TABLET PO SCH (20:12)
[2019-05-09] MEDS: TAMSULOSIN 0.4 MG CAP PO SCH (20:13)
[2019-05-09] MEDS: CYANOCOBALAMIN 500 MCG TAB PO SCH (20:13)
[2019-05-09] MEDS: DIVALPROEX 250MG *ER* TAB PO SCH (20:13)
[2019-05-10 06:00] VITALS: BP 145/59
[2019-05-10] MEDS ORDERED: amLODIPine 5 MG TAB PO SCH (09:00)
[2019-05-10] MEDS: ENOXAPARIN 30MG/0.3ML SYRINGE (J1650 PER 10MG) SC SCH (09:10)
[2019-05-10] MEDS: CETIRIZINE (ZyrTEC) 10 MG TAB PO SCH (09:10)
[2019-05-10] MEDS: VITAMIN D 1,000 INTERNATIONAL UNITS TABLET PO SCH (21:50)
[2019-05-10] MEDS: TAMSULOSIN 0.4 MG CAP PO SCH (21:50)
[2019-05-10] MEDS: DONEPEZIL 5 MG TAB PO SCH (21:50)
[2019-05-10] MEDS: DIVALPROEX 250MG *ER* TAB PO SCH (21:50)
[2019-05-10] MEDS: CYANOCOBALAMIN 500 MCG TAB PO SCH (21:50)
[2019-05-10] MEDS: lisinopriL 10 MG TAB PO SCH (21:51)
[2019-05-11 06:00] VITALS: BP 131/61
[2019-05-11] MEDS: ENOXAPARIN 30MG/0.3ML SYRINGE (J1650 PER 10MG) SC SCH (09:18)
[2019-05-11] MEDS: CETIRIZINE (ZyrTEC) 10 MG TAB PO SCH (09:18)
[2019-05-11] MEDS: VITAMIN D 1,000 INTERNATIONAL UNITS TABLET PO SCH (21:16)
[2019-05-11] MEDS: DONEPEZIL 5 MG TAB PO SCH (21:17)
[2019-05-11] MEDS: CYANOCOBALAMIN 500 MCG TAB PO SCH (21:17)
[2019-05-11] MEDS: TAMSULOSIN 0.4 MG CAP PO SCH (21:17)
[2019-05-11] MEDS: DIVALPROEX 250MG *ER* TAB PO SCH (21:17)
[2019-05-11] MEDS: lisinopriL 10 MG TAB PO SCH (21:17)
[2019-05-12 06:00] VITALS: BP 146/61
[2019-05-12] MEDS: CETIRIZINE (ZyrTEC) 10 MG TAB PO SCH (11:33)
[2019-05-12] MEDS: ENOXAPARIN 30MG/0.3ML SYRINGE (J1650 PER 10MG) SC SCH (11:34)
[2019-05-12] MEDS: TAMSULOSIN 0.4 MG CAP PO SCH (21:16)
[2019-05-12] MEDS: lisinopriL 10 MG TAB PO SCH (21:16)
[2019-05-12] MEDS: DONEPEZIL 5 MG TAB PO SCH (21:16)
[2019-05-12] MEDS: DIVALPROEX 250MG *ER* TAB PO SCH (21:16)
[2019-05-12] MEDS: VITAMIN D 1,000 INTERNATIONAL UNITS TABLET PO SCH (21:16)
[2019-05-12] MEDS: CYANOCOBALAMIN 500 MCG TAB PO SCH (21:16)
[2019-05-13 06:00] VITALS: BP 135/58
[2019-05-13 08:00] VITALS: BP 113/60
[2019-05-13] MEDS: ENOXAPARIN 30MG/0.3ML SYRINGE (J1650 PER 10MG) SC SCH (12:57)
[2019-05-13] MEDS: CETIRIZINE (ZyrTEC) 10 MG TAB PO SCH (12:58)
[2019-05-13] MEDS: DIVALPROEX 250MG *ER* TAB PO SCH (20:34)
[2019-05-13] MEDS: VITAMIN D 1,000 INTERNATIONAL UNITS TABLET PO SCH (20:34)
[2019-05-13] MEDS: DONEPEZIL 5 MG TAB PO SCH (20:35)
[2019-05-13] MEDS: TAMSULOSIN 0.4 MG CAP PO SCH (20:35)
[2019-05-13] MEDS: CYANOCOBALAMIN 500 MCG TAB PO SCH (20:35)
[2019-05-13] MEDS: lisinopriL 10 MG TAB PO SCH (20:39)
[2019-05-14 06:00] VITALS: BP 101/57
[2019-05-14] MEDS: CETIRIZINE (ZyrTEC) 10 MG TAB PO SCH (10:07)
[2019-05-14] MEDS: ENOXAPARIN 30MG/0.3ML SYRINGE (J1650 PER 10MG) SC SCH (10:07)
[2019-05-14] MEDS: DONEPEZIL 5 MG TAB PO SCH (22:00)
[2019-05-14] MEDS: CYANOCOBALAMIN 500 MCG TAB PO SCH (22:01)
[2019-05-14] MEDS: VITAMIN D 1,000 INTERNATIONAL UNITS TABLET PO SCH (22:01)
[2019-05-14] MEDS: TAMSULOSIN 0.4 MG CAP PO SCH (22:01)
[2019-05-14] MEDS: DIVALPROEX 250MG *ER* TAB PO SCH (22:01)
[2019-05-14] MEDS: ACETAMINOPHEN TAB 650MG DOSE (2X325MG) PO PRN (22:03)
[2019-05-14] MEDS: lisinopriL 10 MG TAB PO SCH (22:04)
[2019-05-15 06:00] VITALS: BP 133/60
[2019-05-15] MEDS: ENOXAPARIN 30MG/0.3ML SYRINGE (J1650 PER 10MG) SC SCH (08:10)
[2019-05-15] MEDS: CETIRIZINE (ZyrTEC) 10 MG TAB PO SCH (08:10)
[2019-05-15] MEDS: VITAMIN D 1,000 INTERNATIONAL UNITS TABLET PO SCH (20:30)
[2019-05-15] MEDS: lisinopriL 10 MG TAB PO SCH (20:30)
[2019-05-15] MEDS: TAMSULOSIN 0.4 MG CAP PO SCH (20:30)
[2019-05-15] MEDS: DIVALPROEX 250MG *ER* TAB PO SCH (20:30)
[2019-05-15] MEDS: CYANOCOBALAMIN 500 MCG TAB PO SCH (20:30)
[2019-05-15] MEDS: DONEPEZIL 5 MG TAB PO SCH (20:30)
[2019-05-16 06:00] VITALS: BP 156/70
[2019-05-16] MEDS: ENOXAPARIN 30MG/0.3ML SYRINGE (J1650 PER 10MG) SC SCH (10:04)
[2019-05-16] MEDS: CETIRIZINE (ZyrTEC) 10 MG TAB PO SCH (10:04)
--- NOTE | 2019-05-16 10:10 | IPNPDOC ---
Subjective Date Seen The patient was seen on 05/16/19. Subjective Chief Complaint/HPI pt is comfortable, in no distress General: Denies: ROS Unobtainable, Chills, Night Sweats, Fatigue, Malaise, Normal Appetite, Other Symptoms Constitutional: Denies: Chills, Fever, Malaise, Night Sweats, Weakness, Fatigue, Weight Loss, Lethargy, Other Pulmonary: Denies: Dyspnea, Cough, Pleuritic Chest Pain, Other Symptoms Cardiovascular: Denies: Chest Pain, Palpitations, Orthopnea, Paroxysmal Noc. Dyspnea, Edema, Lt Headedness, Other Symptoms Gastrointestinal: Denies: Nausea, Vomiting, Abdominal Pain, Diarrhea, Constipation, Melena, Hematochezia, Other Symptoms Musculoskeletal: Denies: Neck Pain, Back Pain, Shoulder Pain, Arm Pain, Hand Pain, Leg Pain, Foot Pain, Joint Pain, Muscle Pain, Spasms, Other Symptoms Neurological: Denies: Weakness, Numbness, Incoordination, Change in speech, Confusion, Seizures, Other Symptoms Objective Physical Examination Neck Exam: Positive: Supple Chest Exam: Positive: Clear to auscultation, Normal air movement Heart Exam: Positive: Rate Normal, Regular Rhythm, Normal S1, Normal S2 Telemetry: Positive: No significant arrhythmia Abdomen Exam: Positive: Normal bowel sounds, Soft Male Exam: Positive: Normal Genital Exam Extremity Exam: Positive: Normal pulses, Other (right foot 5th and 2nd digit dry gangrene, 5th digit partially amputated.) Skin Exam: Positive: Nl turgor and temperature, Other skin issue (Toe looks fine no pus drainage noted, wound is wet in appearance, necrotic toe remains partially attached.) Assessment /Plan Problems (1) Gangrene of toe of right foot Status: Acute Problem Text: 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 # Right foot infection (Cx + enterococcus and corynebacterium) - family has declined surgical intervention - both podiatry and vascular were consulted during the initial days of hospitalization - continue local wound care - Augmentin and Flagyl, both were stopped - Pt is awaiting placement, difficulty due to insurance reasons. (2) Cellulitis of fifth toe of right foot Status: Resolved Problem Text: As above (3) HTN (hypertension) Status: Chronic Problem Text: Changed lisinopril to 10 mg by mouth every PM Changed Norvasc to 5 mg by mouth every morning Patient, his blood pressure and heart rate under well control and will continue present meds (4) BPH (benign prostatic hyperplasia) Status: Chronic Problem Text: Continue home meds (5) Dementia Status: Chronic Problem Text: Continue home meds Plan/VTE VTE Prophylaxis Ordered?: Yes (lovenox 30 mg daily) VTE Exclusion Mechanical Proph: N/A:VTE Prophy Ordered VTE Exclusion Pharmacological: N/A:VTE Prophy Ordered Plan Addendum: RN called me in the afternoon as she has noticed some weakness in excessive sleepiness on her part and not behaving as usual, as per nursing staff. Stat CT head was obtained which was negative CBC, CMP essentially within normal limits UA is still pending Was likely waxing and waning of his dementia, will continue observing patient clinically. VS, I&O, 24H, Fishbone Vital Signs/I&O Vital Signs Date Time Temp Pulse Resp B/P (MAP) Pulse Ox O2 Delivery O2 Flow Rate FiO2 05/16/19 06:00 98.4 54 17 156/70 (98) 93 Room Air I&O- Last 24 Hours up to 6 AM 05/16/19 06:00 Intake Total 838 ml Balance 838 ml ALVERTO EDDY MD May 16, 2019 10:10
--- NOTE | 2019-05-16 18:45 | REPVR ---
PROCEDURE INFORMATION: Exam: CT Head Without Contrast Exam date and time: 05/16/2019 5:41 PM Age: 83 years old Clinical indication: Altered mental status/memory loss; Confusion or disorientation; Additional info: Altered mentation TECHNIQUE: Imaging protocol: Computed tomography of the head without contrast. Radiation optimization: All CT scans at this facility use at least one of these dose optimization techniques: automated exposure control; mA and/or kV adjustment per patient size (includes targeted exams where dose is matched to clinical indication); or iterative reconstruction. COMPARISON: No relevant prior studies available. 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 There are moderate periventricular and subcortical lucencies consistent with chronic microvascular ischemic changes. The andrews-white differentiation is maintained. No hemorrhage. No edema. Chronic lacunar infarct of the left basal ganglia. Encephalomalacia in the high left frontal lobe. Ventricles: Normal. No ventriculomegaly. Bones/joints: Unremarkable. No acute fracture. Sinuses: Visualized sinuses are unremarkable. No fluid levels. Mastoid air cells: Visualized mastoid air cells are well aerated. Orbits: Bilateral cataract surgery. Soft tissues: Unremarkable. IMPRESSION: No acute intracranial abnormality. Chronic microvascular ischemic changes. Electronically signed by: Fuad Winn On 05/16/2019 18:44:50 PM
[2019-05-16 20:04] LABS: HEMATOCRIT 33.6 % (42.0-52.0); HEMOGLOBIN 10.8 g/dl (13.5-17.5); MEAN CORPUSCULAR HEMOGLOBIN 31.6 pg (27.0-33.0); MEAN CORPUSCULAR HGB CONC 32.1 g/dl (32.0-36.5); MEAN CORPUSCULAR VOLUME 98.2 fl (80.0-96.0); PLATELET COUNT, AUTOMATED 378 10^3/uL (150-450); RED BLOOD COUNT 3.42 10^6/uL (4.30-6.10); WHITE BLOOD COUNT 10.7 10^3/uL (4.0-10.0)
[2019-05-16] MEDS: VITAMIN D 1,000 INTERNATIONAL UNITS TABLET PO SCH (20:09)
[2019-05-16] MEDS: DIVALPROEX 250MG *ER* TAB PO SCH (20:09)
[2019-05-16] MEDS: TAMSULOSIN 0.4 MG CAP PO SCH (20:09)
[2019-05-16] MEDS: lisinopriL 10 MG TAB PO SCH (20:10)
[2019-05-16] MEDS: DONEPEZIL 5 MG TAB PO SCH (20:11)
[2019-05-16] MEDS: CYANOCOBALAMIN 500 MCG TAB PO SCH (20:11)
[2019-05-16 20:33] LABS: ALBUMIN 2.3 GM/DL (3.2-5.2); BILIRUBIN,TOTAL 0.2 MG/DL (0.2-1.0); CALCIUM LEVEL 8.4 MG/DL (8.8-10.2); CREATININE FOR GFR 1.66 MG/DL (0.70-1.30); GLOMERULAR FILTRATION RATE 42.2 (>35); POTASSIUM SERUM 4.5 MEQ/L (3.5-5.1); TOTAL PROTEIN 7.4 GM/DL (6.4-8.2)
[2019-05-17 06:00] VITALS: BP 154/65
[2019-05-17 09:16] VITALS: BP 102/56
[2019-05-17] MEDS: CETIRIZINE (ZyrTEC) 10 MG TAB PO SCH (10:54)
[2019-05-17] MEDS: ENOXAPARIN 30MG/0.3ML SYRINGE (J1650 PER 10MG) SC SCH (10:54)
--- NOTE | 2019-05-17 15:16 | IPNPDOC ---
Text Note Date of Service The patient was seen on 05/17/19. NOTE Pt was reportedly lethargic and and behaving unusually over the weekend. Stat CT, CBC, CMP - unremarkable. Clean catch UA today - unremarkable. Per nursing - he has returned to his baseline./ He was seen sitting up in his recliner getting ready to eat this morning. VS,Fishbone, I+O VS, Fishbone, I+O Laboratory Tests 05/16/19 19:53 Vital Signs Date Time Temp Pulse Resp B/P (MAP) Pulse Ox O2 Delivery O2 Flow Rate FiO2 05/17/19 09:16 62 14 102/56 (71) 96 Room Air 05/17/19 06:00 98.2 I&O- Last 24 Hours up to 6 AM 05/17/19 06:00 Intake Total 220 ml Output Total 0 ml Balance 220 ml NIGEL DUGGAN PA-C May 17, 2019 15:16
[2019-05-17] MEDS: TAMSULOSIN 0.4 MG CAP PO SCH (22:10)
[2019-05-17] MEDS: CYANOCOBALAMIN 500 MCG TAB PO SCH (22:10)
[2019-05-17] MEDS: DIVALPROEX 250MG *ER* TAB PO SCH (22:10)
[2019-05-17] MEDS: VITAMIN D 1,000 INTERNATIONAL UNITS TABLET PO SCH (22:10)
[2019-05-17] MEDS: lisinopriL 10 MG TAB PO SCH (22:11)
[2019-05-17] MEDS: DONEPEZIL 5 MG TAB PO SCH (22:15)
[2019-05-18 06:00] VITALS: BP 155/63
[2019-05-18] MEDS: ENOXAPARIN 30MG/0.3ML SYRINGE (J1650 PER 10MG) SC SCH (09:12)
[2019-05-18] MEDS: CETIRIZINE (ZyrTEC) 10 MG TAB PO SCH (09:12)
[2019-05-18 14:00] VITALS: BP 100/55
[2019-05-18] MEDS: DONEPEZIL 5 MG TAB PO SCH (20:47)
[2019-05-18] MEDS: TAMSULOSIN 0.4 MG CAP PO SCH (20:47)
[2019-05-18] MEDS: CYANOCOBALAMIN 500 MCG TAB PO SCH (20:47)
[2019-05-18] MEDS: VITAMIN D 1,000 INTERNATIONAL UNITS TABLET PO SCH (20:48)
[2019-05-18] MEDS: lisinopriL 10 MG TAB PO SCH (20:48)
[2019-05-18] MEDS: DIVALPROEX 250MG *ER* TAB PO SCH (20:48)
[2019-05-18 22:00] VITALS: BP 145/72
[2019-05-19 06:00] VITALS: BP 154/80
[2019-05-19] MEDS: CETIRIZINE (ZyrTEC) 10 MG TAB PO SCH (10:31)
[2019-05-19] MEDS: ENOXAPARIN 30MG/0.3ML SYRINGE (J1650 PER 10MG) SC SCH (10:32)
[2019-05-19] MEDS: ACETAMINOPHEN TAB 650MG DOSE (2X325MG) PO PRN ×2 (10:40→21:29)
[2019-05-19] MEDS: CYANOCOBALAMIN 500 MCG TAB PO SCH (21:25)
[2019-05-19] MEDS: TAMSULOSIN 0.4 MG CAP PO SCH (21:25)
[2019-05-19] MEDS: lisinopriL 10 MG TAB PO SCH (21:27)
[2019-05-19] MEDS: VITAMIN D 1,000 INTERNATIONAL UNITS TABLET PO SCH (21:27)
[2019-05-19] MEDS: DONEPEZIL 5 MG TAB PO SCH (21:27)
[2019-05-19] MEDS: DIVALPROEX 250MG *ER* TAB PO SCH (21:29)
[2019-05-20 06:00] VITALS: BP 123/84
[2019-05-20] MEDS: ENOXAPARIN 30MG/0.3ML SYRINGE (J1650 PER 10MG) SC SCH (10:08)
[2019-05-20] MEDS: CETIRIZINE (ZyrTEC) 10 MG TAB PO SCH (10:08)
[2019-05-20] MEDS: VITAMIN D 1,000 INTERNATIONAL UNITS TABLET PO SCH (21:49)
[2019-05-20] MEDS: CYANOCOBALAMIN 500 MCG TAB PO SCH (21:49)
[2019-05-20] MEDS: DONEPEZIL 5 MG TAB PO SCH (21:49)
[2019-05-20] MEDS: TAMSULOSIN 0.4 MG CAP PO SCH (21:49)
[2019-05-20] MEDS: lisinopriL 10 MG TAB PO SCH (21:50)
[2019-05-20] MEDS: DIVALPROEX 250MG *ER* TAB PO SCH (21:50)
[2019-05-21 06:00] VITALS: BP 127/53
[2019-05-21] MEDS: ENOXAPARIN 30MG/0.3ML SYRINGE (J1650 PER 10MG) SC SCH (10:57)
[2019-05-21] MEDS: CETIRIZINE (ZyrTEC) 10 MG TAB PO SCH (10:58)
[2019-05-21 20:20] VITALS: BP 170/72
[2019-05-21] MEDS: TAMSULOSIN 0.4 MG CAP PO SCH (20:26)
[2019-05-21] MEDS: CYANOCOBALAMIN 500 MCG TAB PO SCH (20:26)
[2019-05-21] MEDS: DIVALPROEX 250MG *ER* TAB PO SCH (20:26)
[2019-05-21] MEDS: VITAMIN D 1,000 INTERNATIONAL UNITS TABLET PO SCH (20:26)
[2019-05-21] MEDS: DONEPEZIL 5 MG TAB PO SCH (20:26)
[2019-05-21] MEDS: lisinopriL 10 MG TAB PO SCH (20:29)
[2019-05-22 06:00] VITALS: BP 154/66
[2019-05-22] MEDS: CETIRIZINE (ZyrTEC) 10 MG TAB PO SCH (08:40)
[2019-05-22] MEDS: ENOXAPARIN 30MG/0.3ML SYRINGE (J1650 PER 10MG) SC SCH (08:40)
[2019-05-22] MEDS: DIVALPROEX 250MG *ER* TAB PO SCH (19:38)
[2019-05-22] MEDS: DONEPEZIL 5 MG TAB PO SCH (19:38)
[2019-05-22] MEDS: VITAMIN D 1,000 INTERNATIONAL UNITS TABLET PO SCH (19:38)
[2019-05-22] MEDS: TAMSULOSIN 0.4 MG CAP PO SCH (19:38)
[2019-05-22] MEDS: CYANOCOBALAMIN 500 MCG TAB PO SCH (19:38)
[2019-05-22] MEDS: lisinopriL 10 MG TAB PO SCH (19:42)
[2019-05-23 06:00] VITALS: BP 143/59
[2019-05-23] MEDS: CETIRIZINE (ZyrTEC) 10 MG TAB PO SCH (08:20)
[2019-05-23] MEDS: ENOXAPARIN 30MG/0.3ML SYRINGE (J1650 PER 10MG) SC SCH (08:20)
[2019-05-23] MEDS: TAMSULOSIN 0.4 MG CAP PO SCH (19:53)
[2019-05-23] MEDS: VITAMIN D 1,000 INTERNATIONAL UNITS TABLET PO SCH (19:53)
[2019-05-23] MEDS: DIVALPROEX 250MG *ER* TAB PO SCH (19:54)
[2019-05-23] MEDS: CYANOCOBALAMIN 500 MCG TAB PO SCH (19:54)
[2019-05-23] MEDS: DONEPEZIL 5 MG TAB PO SCH (19:54)
[2019-05-23] MEDS: lisinopriL 10 MG TAB PO SCH (19:54)
[2019-05-24 06:00] VITALS: BP 160/69
[2019-05-24] MEDS: CETIRIZINE (ZyrTEC) 10 MG TAB PO SCH ×2 (10:30→10:39)
[2019-05-24] MEDS: ENOXAPARIN 30MG/0.3ML SYRINGE (J1650 PER 10MG) SC SCH (10:39)
--- NOTE | 2019-05-24 14:14 | IPNPDOC ---
Text Note Date of Service The patient was seen on 05/24/19. NOTE SUBJECTIVE: Patient lethargic this am. Poor interaction and does not want to talk, having low grade fevers. Poor oral intake. Foot smeling bad and looks worse than pratik and the gangrene seems to be spreading proximally. Will get new labs PHYSICAL EXAMINATION: VITALS : As below. GENERAL: Awake, oriented to himself only, lethargic. He is disoriented to time and place. He does answer questions, but inappropriate at times. HEENT: Normocephalic , atraumatic, anicteric eyes, moist mucus membranes. NECK: No jugular venous distention (JVD). No thyromegaly. LUNGS: Diminished but clear to auscultation. No wheezing, rales or rhonchi. HEART: S1, S2. Sinus rhythm. No murmurs, rubs or gallops. ABDOMEN: Soft, nontender, nondistended. Normal active bowel sounds. No hepatosplenomegaly. No rebound or guarding. EXTREMITIES: Gangrene of the right fifth toe and right second toe extending up the side of the lateral aspect of the foot. Dorsalis pedis and posterior tibialis of bilateral lower extremities could not be palpated, best found on Dopplers. The foot remains warm, The patient does have ulcers on bilateral heels , No edema. LABORATORY DATA: Reviewed. ASSESSMENT AND PLAN: 86-year-old, FULL CODE, demented gentleman from [facility] with history of chronic obstructive pulmonary disease (COPD), peripheral vascular disease, Dementia, Hypertension, transferred from [facility] for vascular services due to right second and fifth toe gangrene and treatment for foot infection. The patient was found to have hypertensive urgency and required blood pressure medications, intravenously initially, but currently stable on oral medications. The patient had been on IV Zosyn and vancomycin now discontinued. Per vascular surgery and quantitative equity head, Dr. Murphy amputation or autoamputation can be provided and the patient may followup as an outpatient with Dr. Jolly if the patient can tolerate angiogram and if the amputated toe does not heal may consider revascularization. At this time, the patient's is opting not to pursue any amputation. Wants it to autoamputate. Gangrene of the right fifth toe and right second toe. with proximal spread seen by Dr Murphy today. Needs debriidement spoke with son and left message for . Son says they will be coming up to the hospital this afternoon to discuss the further plans PVD chronic Hypertension. on lisinopril Had bradycardia with betablocker. Chronic obstructive pulmonary disease (COPD), compensated. Dementia : [facility] replacement. on donepezil and depakote trazodone for insomnia. BPH continue flomax. Pressure ulcers in both heels. boots in place. CKD stage 3 mild elevation in creatinine. will continue to monitor DVT prophylaxis in place. Dispo: [facility] placement. VS,Fishbone, I+O VS, Fishbone, I+O Vital Signs Date Time Temp Pulse Resp B/P (MAP) Pulse Ox O2 Delivery O2 Flow Rate FiO2 05/24/19 06:00 98.0 59 20 160/69 (99) 91 Room Air I&O- Last 24 Hours up to 6 AM 05/24/19 06:00 Intake Total 560 ml Balance 560 ml PARESH BAKER MD May 24, 2019 14:14
[2019-05-24 14:35] LABS: BASO % 0.4 % (0.0-1.0); EOS # 0.3 10^3/uL (0.0-0.5); EOS % 2.5 % (0.0-3.0); HEMATOCRIT 32.1 % (42.0-52.0); HEMOGLOBIN 10.5 g/dl (13.5-17.5); LYMPH # 1.2 10^3/uL (1.5-5.0); LYMPH % 10.7 % (24.0-44.0); MEAN CORPUSCULAR HEMOGLOBIN 31.9 pg (27.0-33.0); MEAN CORPUSCULAR HGB CONC 32.7 g/dl (32.0-36.5); MEAN CORPUSCULAR VOLUME 97.6 fl (80.0-96.0); MONO % 9.2 % (0.0-5.0); NEUTROPHILS # 8.4 10^3/uL (1.5-8.5); NEUTROPHILS % 76.2 % (36.0-66.0); PLATELET COUNT, AUTOMATED 381 10^3/uL (150-450); RED BLOOD COUNT 3.29 10^6/uL (4.30-6.10)
[2019-05-24 14:56] LABS: CREATININE FOR GFR 1.53 MG/DL (0.70-1.30); GLOMERULAR FILTRATION RATE 46.4 (>35); POTASSIUM SERUM 3.8 MEQ/L (3.5-5.1)
[2019-05-24] MEDS: CYANOCOBALAMIN 500 MCG TAB PO SCH (21:32)
[2019-05-24] MEDS: VITAMIN D 1,000 INTERNATIONAL UNITS TABLET PO SCH (21:32)
[2019-05-24] MEDS: lisinopriL 10 MG TAB PO SCH (21:33)
[2019-05-24] MEDS: TAMSULOSIN 0.4 MG CAP PO SCH (21:33)
[2019-05-24] MEDS: DIVALPROEX 250MG *ER* TAB PO SCH (21:33)
[2019-05-24] MEDS: DONEPEZIL 5 MG TAB PO SCH (21:33)
[2019-05-25 06:00] VITALS: BP 143/66
[2019-05-25] MEDS: CETIRIZINE (ZyrTEC) 10 MG TAB PO SCH (09:42)
--- NOTE | 2019-05-25 11:22 | IPNPDOC ---
Text Note Date of Service The patient was seen on 05/25/19. NOTE SUBJECTIVE: More awake this am, sitting up in chair , planned for amputation of the right fifth toe at bedside today. PHYSICAL EXAMINATION: VITALS : As below. GENERAL: Awake, oriented to himself only, lethargic. He is disoriented to time and place. He does answer questions, but inappropriate at times. HEENT: Normocephalic , atraumatic, anicteric eyes, moist mucus membranes. NECK: No jugular venous distention (JVD). No thyromegaly. LUNGS: Diminished but clear to auscultation. No wheezing, rales or rhonchi. HEART: S1, S2. Sinus rhythm. No murmurs, rubs or gallops. ABDOMEN: Soft, nontender, nondistended. Normal active bowel sounds. No hepatosplenomegaly. No rebound or guarding. EXTREMITIES: Gangrene of the right fifth toe and right second toe extending up the side of the lateral aspect of the foot. Dorsalis pedis and posterior tibialis of bilateral lower extremities could not be palpated, best found on Doppler. The foot remains warm, The patient does have ulcers on bilateral heels , No edema. LABORATORY DATA: Reviewed. ASSESSMENT AND PLAN: 86-year-old, FULL CODE, demented gentleman from [facility] with history of chronic obstructive pulmonary disease (COPD), peripheral vascular disease, Dementia, Hypertension, transferred from [facility] for vascular services due to right second and fifth toe gangrene and treatment for foot infection. The patient was found to have hypertensive urgency and required blood pressure medications, intravenously initially, but currently stable on oral medications. The patient had been on IV Zosyn and vancomycin now discontinued. Per vascular surgery and olive pitter, Dr. Murphy amputation or autoamputation can be provided and the patient may followup as an outpatient with Dr. Jolly if the patient can tolerate angiogram and if the amputated toe does not heal may consider revascularization. At this time, the patient's is opting not to pursue any amputation. Wants it to autoamputate. Gangrene of the right fifth toe with proximal spread amputation planned for 05/25/19 PVD chronic Hypertension. on lisinopril Had bradycardia with betablocker. Chronic obstructive pulmonary disease (COPD), compensated. Dementia : [facility] replacement. on donepezil and depakote trazodone for insomnia. BPH continue flomax. Pressure ulcers in both heels. boots in place. CKD stage 3 mild elevation in creatinine. will continue to monitor DVT prophylaxis in place. Dispo: [facility] placement. VS,Fishbone, I+O VS, Fishbone, I+O Laboratory Tests 05/24/19 14:25 Vital Signs Date Time Temp Pulse Resp B/P (MAP) Pulse Ox O2 Delivery O2 Flow Rate FiO2 05/25/19 06:00 98.1 63 18 143/66 (91) 95 Room Air I&O- Last 24 Hours up to 6 AM 05/25/19 05:59 Intake Total 240 ml Output Total 0 ml Balance 240 ml PARESH BAKER MD May 25, 2019 11:22
[2019-05-25] MEDS: CEPHALEXIN 500 MG CAP PO SCH ×2 (12:46→20:35)
[2019-05-25] MEDS: ENOXAPARIN 30MG/0.3ML SYRINGE (J1650 PER 10MG) SC SCH (12:47)
--- NOTE | 2019-05-25 15:14 | IPN ---
DATE OF SERVICE: 05/25/2019 The patient was seen and examined. Lengthy discussion had with the family last night. Decision was finally made to have amputation of the gangrenous toe performed. PHYSICAL EXAMINATION: The patient has dry gangrenous toe with some necrotic tissue undermining it. ASSESSMENT: 83-year-old patient with peripheral vascular disease and gangrene of the right foot. PLAN: Right 5th Toe amputation and 5th metatarsal head amputation performed at bedside. After obtaining consent, the foot was prepped with Betadine solution. 6 mL of 1% Lidocaine plain were injected into the right foot. Using a #15 blade, the toe was disarticulated at the metatarsophalangeal joint. It should be noted that his toe was extremely loose and only holding on by a small piece of gangrenous tissue. The metatarsal head was noted to be dessicated in the wound base as well and the amputation of this metatarsal head was performed using heavy scissors. This too was sent for pathology. Culture swab was taken and sterile dressings were applied. The patient will be started on cephalexin. Await culture results. Daily dressing changes can be started. [facility]
[2019-05-25] MEDS: DIVALPROEX 250MG *ER* TAB PO SCH (20:34)
[2019-05-25] MEDS: VITAMIN D 1,000 INTERNATIONAL UNITS TABLET PO SCH (20:34)
[2019-05-25] MEDS: DONEPEZIL 5 MG TAB PO SCH (20:35)
[2019-05-25] MEDS: lisinopriL 10 MG TAB PO SCH (20:35)
[2019-05-25] MEDS: TAMSULOSIN 0.4 MG CAP PO SCH (20:35)
[2019-05-25] MEDS: CYANOCOBALAMIN 500 MCG TAB PO SCH (20:35)
[2019-05-26 06:00] VITALS: BP 126/81
[2019-05-26 06:38] LABS: CALCIUM LEVEL 8.6 MG/DL (8.8-10.2); CREATININE FOR GFR 1.39 MG/DL (0.70-1.30); GLOMERULAR FILTRATION RATE 51.8 (>35); POTASSIUM SERUM 4.1 MEQ/L (3.5-5.1)
[2019-05-26] MEDS: ENOXAPARIN 30MG/0.3ML SYRINGE (J1650 PER 10MG) SC SCH (09:47)
[2019-05-26] MEDS: CEPHALEXIN 500 MG CAP PO SCH ×2 (09:47→22:26)
[2019-05-26] MEDS: CETIRIZINE (ZyrTEC) 10 MG TAB PO SCH (09:47)
[2019-05-26] MEDS: DIVALPROEX 250MG *ER* TAB PO SCH (22:26)
[2019-05-26] MEDS: TAMSULOSIN 0.4 MG CAP PO SCH (22:26)
[2019-05-26] MEDS: VITAMIN D 1,000 INTERNATIONAL UNITS TABLET PO SCH (22:26)
[2019-05-26] MEDS: DONEPEZIL 5 MG TAB PO SCH (22:26)
[2019-05-26] MEDS: lisinopriL 10 MG TAB PO SCH (22:27)
[2019-05-26] MEDS: CYANOCOBALAMIN 500 MCG TAB PO SCH (22:27)
[2019-05-27 06:00] VITALS: BP 147/70
[2019-05-27] MEDS: CEPHALEXIN 500 MG CAP PO SCH ×2 (14:57→22:20)
[2019-05-27] MEDS: ENOXAPARIN 30MG/0.3ML SYRINGE (J1650 PER 10MG) SC SCH (14:57)
[2019-05-27] MEDS: CETIRIZINE (ZyrTEC) 10 MG TAB PO SCH (14:57)
[2019-05-27] MEDS: lisinopriL 10 MG TAB PO SCH (22:19)
[2019-05-27] MEDS: DIVALPROEX 250MG *ER* TAB PO SCH (22:19)
[2019-05-27] MEDS: DONEPEZIL 5 MG TAB PO SCH (22:19)
[2019-05-27] MEDS: VITAMIN D 1,000 INTERNATIONAL UNITS TABLET PO SCH (22:19)
[2019-05-27] MEDS: TAMSULOSIN 0.4 MG CAP PO SCH (22:20)
[2019-05-27] MEDS: CYANOCOBALAMIN 500 MCG TAB PO SCH (22:20)
[2019-05-28 06:00] VITALS: BP 145/55
[2019-05-28 06:30] LABS: BASO % 0.3 % (0.0-1.0); EOS # 0.5 10^3/uL (0.0-0.5); EOS % 4.2 % (0.0-3.0); HEMATOCRIT 31.6 % (42.0-52.0); HEMOGLOBIN 10.3 g/dl (13.5-17.5); LYMPH # 1.6 10^3/uL (1.5-5.0); MEAN CORPUSCULAR HEMOGLOBIN 31.5 pg (27.0-33.0); MEAN CORPUSCULAR HGB CONC 32.6 g/dl (32.0-36.5); MEAN CORPUSCULAR VOLUME 96.6 fl (80.0-96.0); MONO % 8.5 % (0.0-5.0); NEUTROPHILS # 8.4 10^3/uL (1.5-8.5); NEUTROPHILS % 72.2 % (36.0-66.0); PLATELET COUNT, AUTOMATED 433 10^3/uL (150-450); RED BLOOD COUNT 3.27 10^6/uL (4.30-6.10); WHITE BLOOD COUNT 11.6 10^3/uL (4.0-10.0)
[2019-05-28 06:49] LABS: BLOOD UREA NITROGEN 34 MG/DL (7-18); CALCIUM LEVEL 8.9 MG/DL (8.8-10.2); CARBON DIOXIDE LEVEL 27 MEQ/L (21-32); CHLORIDE LEVEL 110 MEQ/L (98-107); CREATININE FOR GFR 1.19 MG/DL (0.70-1.30); GLOMERULAR FILTRATION RATE > 60.0 (>35); GLUCOSE, FASTING 89 MG/DL (70-100); SODIUM LEVEL 142 MEQ/L (136-145)
[2019-05-28] MEDS: CEPHALEXIN 500 MG CAP PO SCH ×2 (08:42→21:04)
[2019-05-28] MEDS: CETIRIZINE (ZyrTEC) 10 MG TAB PO SCH (08:42)
[2019-05-28] MEDS: ENOXAPARIN 30MG/0.3ML SYRINGE (J1650 PER 10MG) SC SCH (08:42)
[2019-05-28] MEDS: DIVALPROEX 250MG *ER* TAB PO SCH (21:03)
[2019-05-28] MEDS: DONEPEZIL 5 MG TAB PO SCH (21:03)
[2019-05-28] MEDS: VITAMIN D 1,000 INTERNATIONAL UNITS TABLET PO SCH (21:03)
[2019-05-28] MEDS: lisinopriL 10 MG TAB PO SCH (21:04)
[2019-05-28] MEDS: TAMSULOSIN 0.4 MG CAP PO SCH (21:04)
[2019-05-28] MEDS: CYANOCOBALAMIN 500 MCG TAB PO SCH (21:05)
[2019-05-29 06:00] VITALS: BP 120/68
[2019-05-29] MEDS: ENOXAPARIN 30MG/0.3ML SYRINGE (J1650 PER 10MG) SC SCH (08:12)
[2019-05-29] MEDS: CEPHALEXIN 500 MG CAP PO SCH ×2 (08:12→20:10)
[2019-05-29] MEDS: CETIRIZINE (ZyrTEC) 10 MG TAB PO SCH (08:12)
[2019-05-29] MEDS: VITAMIN D 1,000 INTERNATIONAL UNITS TABLET PO SCH (20:09)
[2019-05-29] MEDS: TAMSULOSIN 0.4 MG CAP PO SCH (20:10)
[2019-05-29] MEDS: DONEPEZIL 5 MG TAB PO SCH (20:10)
[2019-05-29] MEDS: lisinopriL 10 MG TAB PO SCH (20:10)
[2019-05-29] MEDS: CYANOCOBALAMIN 500 MCG TAB PO SCH (20:10)
[2019-05-29] MEDS: DIVALPROEX 250MG *ER* TAB PO SCH (20:11)
[2019-05-29] MEDS ORDERED: LevoFLOXacin 500 MG TABLET PO ONE (22:00)
[2019-05-30 06:00] VITALS: BP 122/74
[2019-05-30] MEDS: CETIRIZINE (ZyrTEC) 10 MG TAB PO SCH (09:55)
[2019-05-30] MEDS: ENOXAPARIN 30MG/0.3ML SYRINGE (J1650 PER 10MG) SC SCH (09:55)
[2019-05-30] MEDS: CEPHALEXIN 500 MG CAP PO SCH ×2 (09:55→20:12)
[2019-05-30] MEDS: TAMSULOSIN 0.4 MG CAP PO SCH (20:11)
[2019-05-30] MEDS: lisinopriL 10 MG TAB PO SCH (20:11)
[2019-05-30] MEDS: DONEPEZIL 5 MG TAB PO SCH (20:11)
[2019-05-30] MEDS: DIVALPROEX 250MG *ER* TAB PO SCH (20:12)
[2019-05-30] MEDS: CYANOCOBALAMIN 500 MCG TAB PO SCH (20:12)
[2019-05-30] MEDS: VITAMIN D 1,000 INTERNATIONAL UNITS TABLET PO SCH (20:12)
[2019-05-30] MEDS: LevoFLOXacin 250 MG TABLET PO SCH (22:43)
[2019-05-31 06:00] VITALS: BP 129/76
[2019-05-31] MEDS: ENOXAPARIN 30MG/0.3ML SYRINGE (J1650 PER 10MG) SC SCH (09:00)
[2019-05-31] MEDS: CETIRIZINE (ZyrTEC) 10 MG TAB PO SCH (09:39)
[2019-05-31] MEDS: CEPHALEXIN 500 MG CAP PO SCH ×2 (09:39→21:03)
[2019-05-31] MEDS: TAMSULOSIN 0.4 MG CAP PO SCH (21:02)
[2019-05-31] MEDS: LevoFLOXacin 250 MG TABLET PO SCH (21:02)
[2019-05-31] MEDS: CYANOCOBALAMIN 500 MCG TAB PO SCH (21:03)
[2019-05-31] MEDS: DIVALPROEX 250MG *ER* TAB PO SCH (21:03)
[2019-05-31] MEDS: lisinopriL 10 MG TAB PO SCH (21:03)
[2019-05-31] MEDS: DONEPEZIL 5 MG TAB PO SCH (21:03)
[2019-05-31] MEDS: VITAMIN D 1,000 INTERNATIONAL UNITS TABLET PO SCH (21:03)
[2019-06-01 06:00] VITALS: BP 156/67
[2019-06-01] MEDS: ENOXAPARIN 30MG/0.3ML SYRINGE (J1650 PER 10MG) SC SCH (08:38)
[2019-06-01] MEDS: CEPHALEXIN 500 MG CAP PO SCH ×2 (08:39→21:06)
[2019-06-01] MEDS: CETIRIZINE (ZyrTEC) 10 MG TAB PO SCH (08:39)
[2019-06-01] MEDS: CYANOCOBALAMIN 500 MCG TAB PO SCH (21:06)
[2019-06-01] MEDS: DONEPEZIL 5 MG TAB PO SCH (21:06)
[2019-06-01] MEDS: lisinopriL 10 MG TAB PO SCH (21:06)
[2019-06-01] MEDS: VITAMIN D 1,000 INTERNATIONAL UNITS TABLET PO SCH (21:06)
[2019-06-01] MEDS: DIVALPROEX 250MG *ER* TAB PO SCH (21:06)
[2019-06-01] MEDS: TAMSULOSIN 0.4 MG CAP PO SCH (21:06)
[2019-06-01] MEDS: LevoFLOXacin 250 MG TABLET PO SCH (21:06)
[2019-06-02 06:00] VITALS: BP 143/64
[2019-06-02] MEDS: ENOXAPARIN 30MG/0.3ML SYRINGE (J1650 PER 10MG) SC SCH (08:12)
[2019-06-02] MEDS: CEPHALEXIN 500 MG CAP PO SCH ×2 (08:12→20:40)
[2019-06-02] MEDS: CETIRIZINE (ZyrTEC) 10 MG TAB PO SCH (08:12)
[2019-06-02] MEDS: TAMSULOSIN 0.4 MG CAP PO SCH (20:39)
[2019-06-02] MEDS: DIVALPROEX 250MG *ER* TAB PO SCH (20:40)
[2019-06-02] MEDS: DONEPEZIL 5 MG TAB PO SCH (20:40)
[2019-06-02] MEDS: CYANOCOBALAMIN 500 MCG TAB PO SCH (20:40)
[2019-06-02] MEDS: lisinopriL 10 MG TAB PO SCH (20:41)
[2019-06-02] MEDS: VITAMIN D 1,000 INTERNATIONAL UNITS TABLET PO SCH (20:41)
[2019-06-02] MEDS: LevoFLOXacin 250 MG TABLET PO SCH (22:37)
[2019-06-03 06:00] VITALS: BP 140/77
[2019-06-03] MEDS: CETIRIZINE (ZyrTEC) 10 MG TAB PO SCH (08:06)
[2019-06-03] MEDS: CEPHALEXIN 500 MG CAP PO SCH ×2 (08:06→20:39)
[2019-06-03] MEDS: ENOXAPARIN 30MG/0.3ML SYRINGE (J1650 PER 10MG) SC SCH (08:07)
--- NOTE | 2019-06-03 15:17 | HPE ---
DATE OF ADMISSION: 06/02/2019 The patient seen and examined. No events noted. States the toe seems to be feeling better. Lower extremity examination: Amputation site without any erythema or drainage. The gangrenous portions that were proximal to the toe amputation appears superficial and have not spread. The wound base is mostly granular. ASSESSMENT: This 83-year-old male, status post 5th toe amputation. PLAN: Would continue the antibiotics for 10 days total treatment. Continue current wound care. From a foot standpoint, he will be stable for discharge.
[2019-06-03] MEDS: VITAMIN D 1,000 INTERNATIONAL UNITS TABLET PO SCH (20:39)
[2019-06-03] MEDS: CYANOCOBALAMIN 500 MCG TAB PO SCH (20:39)
[2019-06-03] MEDS: DONEPEZIL 5 MG TAB PO SCH (20:39)
[2019-06-03] MEDS: lisinopriL 10 MG TAB PO SCH (20:39)
[2019-06-03] MEDS: TAMSULOSIN 0.4 MG CAP PO SCH (20:39)
[2019-06-03] MEDS: DIVALPROEX 250MG *ER* TAB PO SCH (20:40)
[2019-06-03] MEDS: LevoFLOXacin 250 MG TABLET PO SCH (21:13)
[2019-06-04 06:00] VITALS: BP 143/76
[2019-06-04] MEDS: CEPHALEXIN 500 MG CAP PO SCH ×2 (10:01→21:01)
[2019-06-04] MEDS: CETIRIZINE (ZyrTEC) 10 MG TAB PO SCH (10:01)
[2019-06-04] MEDS: ENOXAPARIN 30MG/0.3ML SYRINGE (J1650 PER 10MG) SC SCH (10:01)
[2019-06-04] MEDS: VITAMIN D 1,000 INTERNATIONAL UNITS TABLET PO SCH (21:01)
[2019-06-04] MEDS: DONEPEZIL 5 MG TAB PO SCH (21:01)
[2019-06-04] MEDS: DIVALPROEX 250MG *ER* TAB PO SCH (21:01)
[2019-06-04] MEDS: CYANOCOBALAMIN 500 MCG TAB PO SCH (21:01)
[2019-06-04] MEDS: lisinopriL 10 MG TAB PO SCH (21:01)
[2019-06-04] MEDS: LevoFLOXacin 250 MG TABLET PO SCH (21:01)
[2019-06-04] MEDS: TAMSULOSIN 0.4 MG CAP PO SCH (21:01)
[2019-06-05 06:00] VITALS: BP 152/60
[2019-06-05] MEDS: CEPHALEXIN 500 MG CAP PO SCH ×2 (08:36→21:12)
[2019-06-05] MEDS: ENOXAPARIN 30MG/0.3ML SYRINGE (J1650 PER 10MG) SC SCH (08:36)
[2019-06-05] MEDS: CETIRIZINE (ZyrTEC) 10 MG TAB PO SCH (08:36)
[2019-06-05] MEDS: DIVALPROEX 250MG *ER* TAB PO SCH (21:12)
[2019-06-05] MEDS: TAMSULOSIN 0.4 MG CAP PO SCH (21:12)
[2019-06-05] MEDS: lisinopriL 10 MG TAB PO SCH (21:12)
[2019-06-05] MEDS: VITAMIN D 1,000 INTERNATIONAL UNITS TABLET PO SCH (21:12)
[2019-06-05] MEDS: DONEPEZIL 5 MG TAB PO SCH (21:12)
[2019-06-05] MEDS: LevoFLOXacin 250 MG TABLET PO SCH (21:12)
[2019-06-05] MEDS: CYANOCOBALAMIN 500 MCG TAB PO SCH (21:20)
[2019-06-06 06:00] VITALS: BP 119/58
[2019-06-06] MEDS: CETIRIZINE (ZyrTEC) 10 MG TAB PO SCH (09:03)
[2019-06-06] MEDS: CEPHALEXIN 500 MG CAP PO SCH ×2 (09:03→20:18)
[2019-06-06] MEDS: ENOXAPARIN 30MG/0.3ML SYRINGE (J1650 PER 10MG) SC SCH (09:03)
--- NOTE | 2019-06-06 11:36 | IPNPDOC ---
Subjective Date Seen The patient was seen on 06/06/19. Subjective Chief Complaint/HPI Patient comfortable in no distress. Offers no complaints General: Denies: ROS Unobtainable, Chills, Night Sweats, Fatigue, Malaise, Normal Appetite, Other Symptoms Constitutional: Denies: Chills, Fever, Malaise, Night Sweats, Weakness, Fatigue, Weight Loss, Lethargy, Other Pulmonary: Denies: Dyspnea, Cough, Pleuritic Chest Pain, Other Symptoms Cardiovascular: Denies: Chest Pain, Palpitations, Orthopnea, Paroxysmal Noc. Dyspnea, Edema, Lt Headedness, Other Symptoms Musculoskeletal: Denies: Neck Pain, Back Pain, Shoulder Pain, Arm Pain, Hand Pain, Leg Pain, Foot Pain, Joint Pain, Muscle Pain, Spasms, Other Symptoms Neurological: Denies: Weakness, Numbness, Incoordination, Change in speech, Confusion, Seizures, Other Symptoms Objective Physical Examination Neck Exam: Positive: Supple Chest Exam: Positive: Clear to auscultation, Normal air movement Heart Exam: Positive: Rate Normal, Regular Rhythm, Normal S1, Normal S2 Telemetry: Positive: No significant arrhythmia Abdomen Exam: Positive: Normal bowel sounds, Soft Male Exam: Positive: Normal Genital Exam Extremity Exam: Positive: Normal pulses, Other (right foot 5th and 2nd digit dry gangrene, 5th digit partially amputated.) Skin Exam: Positive: Nl turgor and temperature, Other skin issue (Toe looks fine no pus drainage noted, wound is wet in appearance, necrotic toe remains partially attached.) Assessment /Plan Problems (1) Gangrene of toe of right foot Status: Acute Problem Text: 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 # Right foot infection (Cx + enterococcus and corynebacterium) - family has declined surgical intervention - both podiatry and vascular were consulted during the initial days of hospitalization - continue local wound care - Augmentin and Flagyl, both were stopped -Podiatry last follow-up was noted, had amputation 05/25/19 - Pt is awaiting placement, difficulty due to insurance reasons. (2) Cellulitis of fifth toe of right foot Status: Resolved Problem Text: As above (3) HTN (hypertension) Status: Chronic Problem Text: Changed lisinopril to 10 mg by mouth every PM Changed Norvasc to 5 mg by mouth every morning Patient, his blood pressure and heart rate under well control and will continue present meds (4) BPH (benign prostatic hyperplasia) Status: Chronic Problem Text: Continue home meds (5) Dementia Status: Chronic Problem Text: Continue home meds Plan/VTE VTE Prophylaxis Ordered?: Yes (lovenox 30 mg daily) VTE Exclusion Mechanical Proph: N/A:VTE Prophy Ordered VTE Exclusion Pharmacological: N/A:VTE Prophy Ordered VS, I&O, 24H, Fishbone Vital Signs/I&O Vital Signs Date Time Temp Pulse Resp B/P (MAP) Pulse Ox O2 Delivery O2 Flow Rate FiO2 06/06/19 06:00 99.0 68 18 119/58 (78) 90 Room Air I&O- Last 24 Hours up to 6 AM 06/06/19 06:00 Intake Total 860 ml Balance 860 ml ALVERTO EDDY MD Jun 06, 2019 11:36
[2019-06-06] MEDS: VITAMIN D 1,000 INTERNATIONAL UNITS TABLET PO SCH (20:18)
[2019-06-06] MEDS: DIVALPROEX 250MG *ER* TAB PO SCH (20:18)
[2019-06-06] MEDS: LevoFLOXacin 250 MG TABLET PO SCH (20:18)
[2019-06-06] MEDS: CYANOCOBALAMIN 500 MCG TAB PO SCH (20:18)
[2019-06-06] MEDS: TAMSULOSIN 0.4 MG CAP PO SCH (20:18)
[2019-06-06] MEDS: DONEPEZIL 5 MG TAB PO SCH (20:18)
[2019-06-06] MEDS: lisinopriL 10 MG TAB PO SCH (20:19)
[2019-06-07 06:00] VITALS: BP 151/70
[2019-06-07 06:40] LABS: BASO # 0.1 10^3/uL (0.0-0.2); BASO % 0.5 % (0.0-1.0); EOS # 0.3 10^3/uL (0.0-0.5); EOS % 2.2 % (0.0-3.0); HEMOGLOBIN 9.8 g/dl (13.5-17.5); LYMPH # 1.5 10^3/uL (1.5-5.0); LYMPH % 11.8 % (24.0-44.0); MEAN CORPUSCULAR HGB CONC 32.7 g/dl (32.0-36.5); MEAN CORPUSCULAR VOLUME 94.9 fl (80.0-96.0); MONO # 1.2 10^3/uL (0.0-0.8); MONO % 9.4 % (0.0-5.0); NEUTROPHILS # 9.5 10^3/uL (1.5-8.5); NEUTROPHILS % 75.3 % (36.0-66.0); PLATELET COUNT, AUTOMATED 357 10^3/uL (150-450); RED BLOOD COUNT 3.16 10^6/uL (4.30-6.10); WHITE BLOOD COUNT 12.7 10^3/uL (4.0-10.0)
[2019-06-07 07:06] LABS: ALBUMIN 1.7 GM/DL (3.2-5.2); BILIRUBIN,TOTAL 0.5 MG/DL (0.2-1.0); CALCIUM LEVEL 8.7 MG/DL (8.8-10.2); CREATININE FOR GFR 1.42 MG/DL (0.70-1.30); GLOMERULAR FILTRATION RATE 50.6 (>35); MAGNESIUM LEVEL 2.1 MG/DL (1.8-2.4); TOTAL PROTEIN 7.2 GM/DL (6.4-8.2)
[2019-06-07] MEDS: ENOXAPARIN 30MG/0.3ML SYRINGE (J1650 PER 10MG) SC SCH (09:27)
[2019-06-07] MEDS: CETIRIZINE (ZyrTEC) 10 MG TAB PO SCH (09:27)
[2019-06-07] MEDS: CEPHALEXIN 500 MG CAP PO SCH ×2 (09:27→21:47)
[2019-06-07] MEDS: DIVALPROEX 250MG *ER* TAB PO SCH (21:46)
[2019-06-07] MEDS: DONEPEZIL 5 MG TAB PO SCH (21:47)
[2019-06-07] MEDS: LevoFLOXacin 250 MG TABLET PO SCH (21:47)
[2019-06-07] MEDS: lisinopriL 10 MG TAB PO SCH (21:47)
[2019-06-07] MEDS: TAMSULOSIN 0.4 MG CAP PO SCH (21:47)
[2019-06-07] MEDS: CYANOCOBALAMIN 500 MCG TAB PO SCH (21:47)
[2019-06-07] MEDS: VITAMIN D 1,000 INTERNATIONAL UNITS TABLET PO SCH (21:47)
[2019-06-08 06:00] VITALS: BP 130/78
[2019-06-08] MEDS: CETIRIZINE (ZyrTEC) 10 MG TAB PO SCH (08:24)
[2019-06-08] MEDS: ENOXAPARIN 30MG/0.3ML SYRINGE (J1650 PER 10MG) SC SCH (08:25)
[2019-06-08] MEDS: LevoFLOXacin 250 MG TABLET PO SCH (22:07)
[2019-06-08] MEDS: CYANOCOBALAMIN 500 MCG TAB PO SCH (22:07)
[2019-06-08] MEDS: DONEPEZIL 5 MG TAB PO SCH (22:07)
[2019-06-08] MEDS: VITAMIN D 1,000 INTERNATIONAL UNITS TABLET PO SCH (22:08)
[2019-06-08] MEDS: DIVALPROEX 250MG *ER* TAB PO SCH (22:08)
[2019-06-08] MEDS: TAMSULOSIN 0.4 MG CAP PO SCH (22:08)
[2019-06-08] MEDS: lisinopriL 10 MG TAB PO SCH (22:09)
[2019-06-09 06:00] VITALS: BP 163/65
[2019-06-09 06:34] VITALS: BP 158/62
[2019-06-09] MEDS: ENOXAPARIN 30MG/0.3ML SYRINGE (J1650 PER 10MG) SC SCH (09:12)
[2019-06-09] MEDS: CETIRIZINE (ZyrTEC) 10 MG TAB PO SCH (09:12)
[2019-06-09] MEDS: CYANOCOBALAMIN 500 MCG TAB PO SCH (21:36)
[2019-06-09] MEDS: VITAMIN D 1,000 INTERNATIONAL UNITS TABLET PO SCH (21:37)
[2019-06-09] MEDS: TAMSULOSIN 0.4 MG CAP PO SCH (21:37)
[2019-06-09] MEDS: DIVALPROEX 250MG *ER* TAB PO SCH (21:37)
[2019-06-09] MEDS: DONEPEZIL 5 MG TAB PO SCH (21:37)
[2019-06-09] MEDS: LevoFLOXacin 250 MG TABLET PO SCH (21:37)
[2019-06-09] MEDS: lisinopriL 10 MG TAB PO SCH (21:44)
[2019-06-09 22:00] VITALS: BP 160/72
[2019-06-10] MEDS: ACETAMINOPHEN TAB 650MG DOSE (2X325MG) PO PRN (05:20)
[2019-06-10 06:00] VITALS: BP 166/72
[2019-06-10 06:47] VITALS: BP 132/62
[2019-06-10] MEDS: ENOXAPARIN 30MG/0.3ML SYRINGE (J1650 PER 10MG) SC SCH (09:00)
[2019-06-10] MEDS: NYSTATIN 100,000 UNITS/GM TOPICAL PWD 15 GM TOP SCH ×2 (09:00→20:33)
[2019-06-10] MEDS: CETIRIZINE (ZyrTEC) 10 MG TAB PO SCH (10:15)
[2019-06-10] MEDS: LevoFLOXacin 250 MG TABLET PO SCH (20:32)
[2019-06-10] MEDS: DONEPEZIL 5 MG TAB PO SCH (20:32)
[2019-06-10] MEDS: DIVALPROEX 250MG *ER* TAB PO SCH (20:32)
[2019-06-10] MEDS: TAMSULOSIN 0.4 MG CAP PO SCH (20:32)
[2019-06-10] MEDS: CYANOCOBALAMIN 500 MCG TAB PO SCH (20:33)
[2019-06-10] MEDS: VITAMIN D 1,000 INTERNATIONAL UNITS TABLET PO SCH (20:33)
[2019-06-10] MEDS: lisinopriL 10 MG TAB PO SCH (20:35)
[2019-06-11 06:00] VITALS: BP 152/74
[2019-06-11] MEDS: ENOXAPARIN 30MG/0.3ML SYRINGE (J1650 PER 10MG) SC SCH (09:00)
[2019-06-11] MEDS: CETIRIZINE (ZyrTEC) 10 MG TAB PO SCH (09:26)
[2019-06-11] MEDS: NYSTATIN 100,000 UNITS/GM TOPICAL PWD 15 GM TOP SCH ×2 (09:26→21:12)
[2019-06-11] MEDS: DONEPEZIL 5 MG TAB PO SCH (21:11)
[2019-06-11] MEDS: lisinopriL 10 MG TAB PO SCH (21:11)
[2019-06-11] MEDS: LevoFLOXacin 250 MG TABLET PO SCH (21:11)
[2019-06-11] MEDS: TAMSULOSIN 0.4 MG CAP PO SCH (21:11)
[2019-06-11] MEDS: CYANOCOBALAMIN 500 MCG TAB PO SCH (21:11)
[2019-06-11] MEDS: DIVALPROEX 250MG *ER* TAB PO SCH (21:11)
[2019-06-11] MEDS: VITAMIN D 1,000 INTERNATIONAL UNITS TABLET PO SCH (21:12)
[2019-06-12 06:00] VITALS: BP 162/68
[2019-06-12] MEDS: CETIRIZINE (ZyrTEC) 10 MG TAB PO SCH (10:40)
[2019-06-12] MEDS: ENOXAPARIN 30MG/0.3ML SYRINGE (J1650 PER 10MG) SC SCH (10:40)
[2019-06-12] MEDS: NYSTATIN 100,000 UNITS/GM TOPICAL PWD 15 GM TOP SCH ×2 (10:41→21:39)
[2019-06-12] MEDS: lisinopriL 10 MG TAB PO SCH (21:39)
[2019-06-12] MEDS: DONEPEZIL 5 MG TAB PO SCH (21:39)
[2019-06-12] MEDS: LevoFLOXacin 250 MG TABLET PO SCH (21:39)
[2019-06-12] MEDS: TAMSULOSIN 0.4 MG CAP PO SCH (21:39)
[2019-06-12] MEDS: CYANOCOBALAMIN 500 MCG TAB PO SCH (21:39)
[2019-06-12] MEDS: VITAMIN D 1,000 INTERNATIONAL UNITS TABLET PO SCH (21:39)
[2019-06-12] MEDS: DIVALPROEX 250MG *ER* TAB PO SCH (21:40)
[2019-06-13 06:00] VITALS: BP 168/70
[2019-06-13] MEDS: CETIRIZINE (ZyrTEC) 10 MG TAB PO SCH (09:22)
[2019-06-13] MEDS: ENOXAPARIN 30MG/0.3ML SYRINGE (J1650 PER 10MG) SC SCH (09:23)
[2019-06-13] MEDS: NYSTATIN 100,000 UNITS/GM TOPICAL PWD 15 GM TOP SCH ×2 (09:23→20:54)
[2019-06-13] MEDS: CYANOCOBALAMIN 500 MCG TAB PO SCH (20:53)
[2019-06-13] MEDS: VITAMIN D 1,000 INTERNATIONAL UNITS TABLET PO SCH (20:53)
[2019-06-13] MEDS: TAMSULOSIN 0.4 MG CAP PO SCH (20:53)
[2019-06-13] MEDS: lisinopriL 10 MG TAB PO SCH (20:53)
[2019-06-13] MEDS: DONEPEZIL 5 MG TAB PO SCH (20:54)
[2019-06-13] MEDS: DIVALPROEX 250MG *ER* TAB PO SCH (20:54)
[2019-06-14 06:00] VITALS: BP 141/58
--- NOTE | 2019-06-14 09:01 | IPNPDOC ---
Text Note Date of Service The patient was seen on 06/14/19. NOTE SUBJECTIVE:alert awake sitting u;p in chair. no new events this week. PHYSICAL EXAMINATION: VITALS : As below. GENERAL: Awake, oriented to himself only, He is disoriented to time and place. He does answer questions. HEENT: Normocephalic , atraumatic, anicteric eyes, moist mucus membranes. NECK: No jugular venous distention (JVD). No thyromegaly. LUNGS: Diminished but clear to auscultation. No wheezing, rales or rhonchi. some basal crackles. HEART: S1, S2. Sinus rhythm. No murmurs, rubs or gallops. ABDOMEN: Soft, nontender, nondistended. Normal active bowel sounds. No hepatosplenomegaly. No rebound or guarding. EXTREMITIES: right fifth toe amputated. LABORATORY DATA: Reviewed. ASSESSMENT AND PLAN: 86-year-old, FULL CODE, demented gentleman from assisted with history of chronic obstructive pulmonary disease (COPD), peripheral vascular disease, Dementia, Hypertension, transferred from [facility] for vascular services due to right second and fifth toe gangrene and treatment for foot infection. The patient was found to have hypertensive urgency and required blood pressure medications, intravenously initially, but currently stable on oral medications. The patient had been on IV Zosyn and vancomycin now discontinued. Initially the wanted the toe to autoamputate. Hoever in May pateint was having low grade fevers and it looked like the toe was b ecoming moist and infected. Ultimately patient had amputation of right fifth toe on 05/25/19 at bedside. At present waiting for placement. Dementia : assisted replacement. on donepezil and depakote trazodone for insomnia. Gangrene of the right fifth toe s/p amputation on 05/25/19 PVD chronic follow up with vascular as outpateint if the amputated toe does not heal and it is felt that the patient can tolerate angiogram. Hypertension. on lisinopril Had bradycardia with betablocker. Chronic obstructive pulmonary disease (COPD), compensated. BPH continue flomax. Pressure ulcers in both heels. boots in place. CKD stage 3 creatinine stable. DVT prophylaxis in place. Dispo: assisted placement. VS,Fishbone, I+O VS, Fishbone, I+O Vital Signs Date Time Temp Pulse Resp B/P (MAP) Pulse Ox O2 Delivery O2 Flow Rate FiO2 06/14/19 06:00 98.6 57 16 141/58 (85) 94 Room Air I&O- Last 24 Hours up to 6 AM 06/14/19 06:00 Intake Total 580 ml Output Total 0 ml Balance 580 ml PARESH BAKER MD Jun 14, 2019 09:01
[2019-06-14 09:28] LABS: HEMATOCRIT 31.3 % (42.0-52.0); HEMOGLOBIN 10.2 g/dl (13.5-17.5); MEAN CORPUSCULAR HEMOGLOBIN 31.7 pg (27.0-33.0); MEAN CORPUSCULAR HGB CONC 32.6 g/dl (32.0-36.5); MEAN CORPUSCULAR VOLUME 97.2 fl (80.0-96.0); PLATELET COUNT, AUTOMATED 382 10^3/uL (150-450); RED BLOOD COUNT 3.22 10^6/uL (4.30-6.10); WHITE BLOOD COUNT 12.8 10^3/uL (4.0-10.0)
[2019-06-14 09:46] LABS: CALCIUM LEVEL 8.3 MG/DL (8.8-10.2); CREATININE FOR GFR 1.38 MG/DL (0.70-1.30); GLOMERULAR FILTRATION RATE 52.3 (>35); POTASSIUM SERUM 3.8 MEQ/L (3.5-5.1)
[2019-06-14] MEDS: ENOXAPARIN 30MG/0.3ML SYRINGE (J1650 PER 10MG) SC SCH (10:22)
[2019-06-14] MEDS: CETIRIZINE (ZyrTEC) 10 MG TAB PO SCH (10:22)
[2019-06-14] MEDS: NYSTATIN 100,000 UNITS/GM TOPICAL PWD 15 GM TOP SCH ×2 (10:23→20:32)
[2019-06-14] MEDS: CYANOCOBALAMIN 500 MCG TAB PO SCH (20:31)
[2019-06-14] MEDS: VITAMIN D 1,000 INTERNATIONAL UNITS TABLET PO SCH (20:31)
[2019-06-14] MEDS: TAMSULOSIN 0.4 MG CAP PO SCH (20:32)
[2019-06-14] MEDS: DONEPEZIL 5 MG TAB PO SCH (20:32)
[2019-06-14] MEDS: DIVALPROEX 250MG *ER* TAB PO SCH (20:32)
[2019-06-14] MEDS: lisinopriL 10 MG TAB PO SCH (20:35)
[2019-06-15 06:00] VITALS: BP 142/63
[2019-06-15] MEDS: NYSTATIN 100,000 UNITS/GM TOPICAL PWD 15 GM TOP SCH ×2 (08:56→22:08)
[2019-06-15] MEDS: ENOXAPARIN 30MG/0.3ML SYRINGE (J1650 PER 10MG) SC SCH (08:56)
[2019-06-15] MEDS: CETIRIZINE (ZyrTEC) 10 MG TAB PO SCH (08:56)
[2019-06-15] MEDS: VITAMIN D 1,000 INTERNATIONAL UNITS TABLET PO SCH (22:06)
[2019-06-15] MEDS: lisinopriL 10 MG TAB PO SCH (22:06)
[2019-06-15] MEDS: DIVALPROEX 250MG *ER* TAB PO SCH (22:06)
[2019-06-15] MEDS: DONEPEZIL 5 MG TAB PO SCH (22:07)
[2019-06-15] MEDS: TAMSULOSIN 0.4 MG CAP PO SCH (22:07)
[2019-06-15] MEDS: CYANOCOBALAMIN 500 MCG TAB PO SCH (22:08)
[2019-06-16 06:00] VITALS: BP 131/76
[2019-06-16] MEDS: CETIRIZINE (ZyrTEC) 10 MG TAB PO SCH (10:08)
[2019-06-16] MEDS: ENOXAPARIN 30MG/0.3ML SYRINGE (J1650 PER 10MG) SC SCH (10:08)
[2019-06-16] MEDS: NYSTATIN 100,000 UNITS/GM TOPICAL PWD 15 GM TOP SCH ×2 (10:08→20:18)
[2019-06-16] MEDS: ACETAMINOPHEN TAB 650MG DOSE (2X325MG) PO PRN (10:09)
[2019-06-16] MEDS: VITAMIN D 1,000 INTERNATIONAL UNITS TABLET PO SCH (20:16)
[2019-06-16] MEDS: DIVALPROEX 250MG *ER* TAB PO SCH (20:17)
[2019-06-16] MEDS: lisinopriL 10 MG TAB PO SCH (20:17)
[2019-06-16] MEDS: DONEPEZIL 5 MG TAB PO SCH (20:17)
[2019-06-16] MEDS: CYANOCOBALAMIN 500 MCG TAB PO SCH (20:17)
[2019-06-16] MEDS: TAMSULOSIN 0.4 MG CAP PO SCH (20:18)
[2019-06-17 06:00] VITALS: BP 151/67
[2019-06-17] MEDS: CETIRIZINE (ZyrTEC) 10 MG TAB PO SCH (09:03)
[2019-06-17] MEDS: ENOXAPARIN 30MG/0.3ML SYRINGE (J1650 PER 10MG) SC SCH (09:04)
[2019-06-17] MEDS: NYSTATIN 100,000 UNITS/GM TOPICAL PWD 15 GM TOP SCH ×2 (09:04→20:19)
[2019-06-17] MEDS: VITAMIN D 1,000 INTERNATIONAL UNITS TABLET PO SCH (20:08)
[2019-06-17] MEDS: CYANOCOBALAMIN 500 MCG TAB PO SCH (20:08)
[2019-06-17] MEDS: DIVALPROEX 250MG *ER* TAB PO SCH (20:08)
[2019-06-17] MEDS: DONEPEZIL 5 MG TAB PO SCH (20:09)
[2019-06-17] MEDS: TAMSULOSIN 0.4 MG CAP PO SCH (20:09)
[2019-06-17] MEDS: lisinopriL 10 MG TAB PO SCH (20:18)
[2019-06-18 06:00] VITALS: BP 140/70
[2019-06-18] MEDS: CETIRIZINE (ZyrTEC) 10 MG TAB PO SCH (09:08)
[2019-06-18] MEDS: NYSTATIN 100,000 UNITS/GM TOPICAL PWD 15 GM TOP SCH ×2 (09:08→20:55)
[2019-06-18] MEDS: ENOXAPARIN 30MG/0.3ML SYRINGE (J1650 PER 10MG) SC SCH (09:16)
[2019-06-18] MEDS: TAMSULOSIN 0.4 MG CAP PO SCH (20:54)
[2019-06-18] MEDS: CYANOCOBALAMIN 500 MCG TAB PO SCH (20:54)
[2019-06-18] MEDS: lisinopriL 10 MG TAB PO SCH (20:55)
[2019-06-18] MEDS: DONEPEZIL 5 MG TAB PO SCH (20:55)
[2019-06-18] MEDS: DIVALPROEX 250MG *ER* TAB PO SCH (20:55)
[2019-06-18] MEDS: VITAMIN D 1,000 INTERNATIONAL UNITS TABLET PO SCH (20:55)
[2019-06-19 06:00] VITALS: BP 149/53
[2019-06-19] MEDS: ENOXAPARIN 30MG/0.3ML SYRINGE (J1650 PER 10MG) SC SCH (08:56)
[2019-06-19] MEDS: CETIRIZINE (ZyrTEC) 10 MG TAB PO SCH (08:56)
[2019-06-19] MEDS: NYSTATIN 100,000 UNITS/GM TOPICAL PWD 15 GM TOP SCH ×2 (08:57→20:24)
[2019-06-19] MEDS: VITAMIN D 1,000 INTERNATIONAL UNITS TABLET PO SCH (20:24)
[2019-06-19] MEDS: DIVALPROEX 250MG *ER* TAB PO SCH (20:25)
[2019-06-19] MEDS: CYANOCOBALAMIN 500 MCG TAB PO SCH (20:25)
[2019-06-19] MEDS: TAMSULOSIN 0.4 MG CAP PO SCH (20:25)
[2019-06-19] MEDS: DONEPEZIL 5 MG TAB PO SCH (20:26)
[2019-06-19] MEDS: lisinopriL 10 MG TAB PO SCH (20:26)
[2019-06-20 06:00] VITALS: BP 133/64
[2019-06-20] MEDS: NYSTATIN 100,000 UNITS/GM TOPICAL PWD 15 GM TOP SCH ×2 (08:52→20:46)
[2019-06-20] MEDS: CETIRIZINE (ZyrTEC) 10 MG TAB PO SCH (08:52)
[2019-06-20] MEDS: ENOXAPARIN 30MG/0.3ML SYRINGE (J1650 PER 10MG) SC SCH (08:52)
[2019-06-20 14:00] VITALS: BP 130/68
[2019-06-20] MEDS: VITAMIN D 1,000 INTERNATIONAL UNITS TABLET PO SCH (20:45)
[2019-06-20] MEDS: lisinopriL 10 MG TAB PO SCH (20:45)
[2019-06-20] MEDS: CYANOCOBALAMIN 500 MCG TAB PO SCH (20:45)
[2019-06-20] MEDS: DONEPEZIL 5 MG TAB PO SCH (20:45)
[2019-06-20] MEDS: TAMSULOSIN 0.4 MG CAP PO SCH (20:45)
[2019-06-20] MEDS: DIVALPROEX 250MG *ER* TAB PO SCH (20:46)
[2019-06-21 06:00] VITALS: BP 127/82
[2019-06-21 08:26] LABS: HEMATOCRIT 33.3 % (42.0-52.0); HEMOGLOBIN 10.8 g/dl (13.5-17.5); MEAN CORPUSCULAR HEMOGLOBIN 31.6 pg (27.0-33.0); MEAN CORPUSCULAR HGB CONC 32.4 g/dl (32.0-36.5); MEAN CORPUSCULAR VOLUME 97.4 fl (80.0-96.0); PLATELET COUNT, AUTOMATED 491 10^3/uL (150-450); RED BLOOD COUNT 3.42 10^6/uL (4.30-6.10); WHITE BLOOD COUNT 11.9 10^3/uL (4.0-10.0)
[2019-06-21 08:44] LABS: BLOOD UREA NITROGEN 39 MG/DL (7-18); CALCIUM LEVEL 8.6 MG/DL (8.8-10.2); CARBON DIOXIDE LEVEL 28 MEQ/L (21-32); CHLORIDE LEVEL 109 MEQ/L (98-107); CREATININE FOR GFR 1.21 MG/DL (0.70-1.30); GLOMERULAR FILTRATION RATE > 60.0 (>35); GLUCOSE, FASTING 79 MG/DL (70-100); POTASSIUM SERUM 4.1 MEQ/L (3.5-5.1); SODIUM LEVEL 142 MEQ/L (136-145)
[2019-06-21] MEDS: NYSTATIN 100,000 UNITS/GM TOPICAL PWD 15 GM TOP SCH ×2 (09:07→20:53)
[2019-06-21] MEDS: ENOXAPARIN 30MG/0.3ML SYRINGE (J1650 PER 10MG) SC SCH (09:07)
[2019-06-21] MEDS: CETIRIZINE (ZyrTEC) 10 MG TAB PO SCH (09:07)
--- NOTE | 2019-06-21 10:00 | IPN ---
DATE OF SERVICE: 06/21/2019 The patient is currently not cooperative. Has his eyes closed. Does not interact or answer questions. Per nursing, the patient is at baseline. He has a blanchable sacral decubitus. He is usually Pravin lift at baseline. Awaiting placement. His appetite has been decreased despite assistance with meals. He continues to be on a dysphagia diet and thickened liquids and has not been eating all that well. Per the , he usually will eat more when he tastes wheat in the beginning of a meal, which has been encouraged to be done with nursing. The patient's white count is decreasing to 11.9 from previous 12.8. He is afebrile. Unable to obtain a review of systems. : Temperature 97.2, pulse 64, respiratory rate 15, blood pressure 127/82, 95% on room air. GENERALLY: The patient is withdrawn. Has his eyes closed. Not cooperative. He has no respiratory distress. He does not answer questions. No jugular venous distention (JVD). No thyromegaly or cervical lymphadenopathy. Unable to assess for pharyngeal erythema, as the patient is refusing to cooperate. LUNGS: Are clear to auscultation. No wheezing, rales, or rhonchi. HEART: S1, S2. Sinus rhythm. ABDOMEN: Soft, nontender, nondistended. Positive bowel sounds times four quadrants. No rebound or guarding. The patient has a right 5th toe amputation. LABORATORY DATA: Reviewed. MICROBIOLOGY: Reviewed. ASSESSMENT AND PLAN: An 83-year-old male, demented, from the shelter with history of chronic obstructive pulmonary disease (COPD), peripheral vascular disease, transferred from [facility] for vascular services due to right 2nd and 5th toe gangrene and foot infection with history of chronic dementia and hypertension. The patient had hypertensive emergency and was given intravenous (IV) blood pressure medications and IV Zosyn and vancomycin. IMPRESSION: 1. 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 2. Chronic dementia. Awaiting shelter placement. On chronic donepezil and Depakote. Trazodone for insomnia. 3. Peripheral vascular disease, chronic. Status post amputation of the right 5th toe. Outpatient followup if the patient can tolerate an angiogram. 4. Chronic kidney disease stage III, at baseline creatinine. 5. Pressure ulcers in bilateral heels. Boots are in place. The patient is Pravin lift and turn every hour. 6. Benign prostatic hypertrophy (BPH). On chronic Flomax. 7. Chronic obstructive pulmonary disease, which is compensated. 8. Hypertension. On lisinopril. The patient had issues with low heart rate with beta blockers. DISPOSITION: Continue on alternate level of care (ALC) status. [facility]wait[facility] placement. [facility]
[2019-06-21] MEDS: lisinopriL 10 MG TAB PO SCH (20:52)
[2019-06-21] MEDS: DONEPEZIL 5 MG TAB PO SCH (20:52)
[2019-06-21] MEDS: DIVALPROEX 250MG *ER* TAB PO SCH (20:52)
[2019-06-21] MEDS: CYANOCOBALAMIN 500 MCG TAB PO SCH (20:52)
[2019-06-21] MEDS: VITAMIN D 1,000 INTERNATIONAL UNITS TABLET PO SCH (20:52)
[2019-06-21] MEDS: TAMSULOSIN 0.4 MG CAP PO SCH (20:53)
[2019-06-22 06:00] VITALS: BP_SYST 148; BP_SYST 159; BP_DIAS 60; BP_DIAS 64
[2019-06-22] MEDS: CETIRIZINE (ZyrTEC) 10 MG TAB PO SCH (09:23)
[2019-06-22] MEDS: ENOXAPARIN 30MG/0.3ML SYRINGE (J1650 PER 10MG) SC SCH (09:23)
[2019-06-22] MEDS: NYSTATIN 100,000 UNITS/GM TOPICAL PWD 15 GM TOP SCH ×2 (09:23→20:11)
[2019-06-22] MEDS: TAMSULOSIN 0.4 MG CAP PO SCH (20:12)
[2019-06-22] MEDS: VITAMIN D 1,000 INTERNATIONAL UNITS TABLET PO SCH (20:12)
[2019-06-22] MEDS: DONEPEZIL 5 MG TAB PO SCH (20:12)
[2019-06-22] MEDS: lisinopriL 10 MG TAB PO SCH (20:12)
[2019-06-22] MEDS: CYANOCOBALAMIN 500 MCG TAB PO SCH (20:12)
[2019-06-22] MEDS: DIVALPROEX 250MG *ER* TAB PO SCH (20:13)
[2019-06-22 22:00] VITALS: BP 158/90
--- NOTE | 2019-06-22 22:34 | IPNPDOC ---
Date Seen The patient was seen on 06/22/19. Progress Note SUBJECTIVE: Patient denies pain, shortness of breath, n/v/d, fevers. Answered appropriately for me this AM. Currently still awaiting placement. No acute events overnight. OBJECTIVE: VITAL SIGNS: Please see below PHYSICAL EXAMINATION: CONSTITUTIONAL: No acute distress, resting comfortably, AAO x 1 EYES: PERRLA, EOM intact HENT, MOUTH: Normocephalic, atraumatic, moist mucous membranes NECK: SUPPLE, no JVD, no lymphadenopathy, no carotid bruit CV: Regular rate and rhythm, S1S2 normal, no murmurs/rubs/gallops RESPIRATORY: Clear to auscultation bilaterally, no rales/rhonchi/wheezes GI: BS positive in 4 quadrants, soft, nontender, nondistended, no rebound or guarding, no organomegaly : Deferred MUSCULOSKELETAL: Right fifth toe amputated. Decreased ROM of all extremities. . No cyanosis, clubbing, swelling, joint deformity, extremity edema INTEGUMENTARY: Intact, no rashes, no lesions, no erythema NEUROLOGIC: Cranial Nerves II-XII are intact, no focal deficits PSYCHIATRIC: Mood and affect are normal CURRENT MEDICATIONS: Please see below LABORATORY DATA: Please see below IMAGING: No new imaging. ASSESSMENT: 83 y/o M admitted under inpatient status for treatment of gangrene of right 5th toe s/p amputation, chronic dementia awaiting [facility] to jail. PLAN: 1. Chronic dementia. Awaiting jail placement. On chronic donepezil and Depakote. Trazodone for insomnia. 2. 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 Healing well. 3. Peripheral vascular disease, chronic. Status post amputation of the right 5th toe. Outpatient angiogram suggested. 4. Chronic kidney disease stage III, at baseline creatinine. F/u labs. 5. Pressure ulcers in bilateral heels. Boots are in place. The patient is Pravin lift and turn every hour. Wound care. 6. Benign prostatic hypertrophy (BPH). On chronic Flomax. 7. COPD. Stable, not currently on meds. 8. Hypertension. On lisinopril and controlled. 9. DVT px. Enoxaparin. DISPOSITION: Currently awaiting placement. VS, I&O, 24H, Fishbone Vital Signs/I&O Vital Signs Date Time Temp Pulse Resp B/P (MAP) Pulse Ox O2 Delivery O2 Flow Rate FiO2 06/22/19 20:12 158/90 06/22/19 06:00 97.1 56 20 96 Room Air I&O- Last 24 Hours up to 6 AM 06/22/19 06:00 Intake Total 460 ml Output Total 0 ml Balance 460 ml Radha Delgado MD Jun 22, 2019 22:34
[2019-06-23 06:00] VITALS: BP 140/83
[2019-06-23] MEDS: CETIRIZINE (ZyrTEC) 10 MG TAB PO SCH (09:15)
[2019-06-23] MEDS: NYSTATIN 100,000 UNITS/GM TOPICAL PWD 15 GM TOP SCH ×2 (09:15→20:56)
[2019-06-23] MEDS: ENOXAPARIN 30MG/0.3ML SYRINGE (J1650 PER 10MG) SC SCH (09:15)
--- NOTE | 2019-06-23 15:14 | IPNPDOC ---
Date Seen The patient was seen on 06/23/19. Progress Note SUBJECTIVE: Currently still awaiting placement. No acute events overnight. OBJECTIVE: VITAL SIGNS: Please see below PHYSICAL EXAMINATION: CONSTITUTIONAL: No acute distress, resting comfortably, AAO x 1 EYES: PERRLA, EOM intact HENT, MOUTH: Normocephalic, atraumatic, moist mucous membranes NECK: SUPPLE, no JVD, no lymphadenopathy, no carotid bruit CV: Regular rate and rhythm, S1S2 normal, no murmurs/rubs/gallops RESPIRATORY: Clear to auscultation bilaterally, no rales/rhonchi/wheezes GI: BS positive in 4 quadrants, soft, nontender, nondistended, no rebound or guarding, no organomegaly : Deferred MUSCULOSKELETAL: Right fifth toe amputated. Decreased ROM of all extremities. . No cyanosis, clubbing, swelling, joint deformity, extremity edema INTEGUMENTARY: Intact, no rashes, no lesions, no erythema NEUROLOGIC: Cranial Nerves II-XII are intact, no focal deficits PSYCHIATRIC: Mood and affect are normal CURRENT MEDICATIONS: Please see below LABORATORY DATA: Please see below IMAGING: No new imaging. ASSESSMENT: 83 y/o M admitted under inpatient status for treatment of gangrene of right 5th toe s/p amputation, chronic dementia awaiting placement. PLAN: 1. Chronic dementia. Awaiting skilled nursing placement. On chronic donepezil and Depakote. Trazodone for insomnia. 2. 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 Healing well. 3. Peripheral vascular disease, chronic. Status post amputation of the right 5th toe. Outpatient angiogram suggested. 4. Chronic kidney disease stage III, at baseline creatinine. F/u labs. 5. Pressure ulcers in bilateral heels. Boots are in place. The patient is Pravin lift and turn every hour. Wound care. 6. Benign prostatic hypertrophy (BPH). On chronic Flomax. 7. COPD. Stable, not currently on meds. 8. Hypertension. On lisinopril and controlled. 9. DVT px. Enoxaparin. DISPOSITION: Currently under inpatient status and awaiting placement. VS, I&O, 24H, Fishbone Vital Signs/I&O Vital Signs Date Time Temp Pulse Resp B/P (MAP) Pulse Ox O2 Delivery O2 Flow Rate FiO2 06/23/19 06:00 97.3 70 16 140/83 (102) 92 Room Air I&O- Last 24 Hours up to 6 AM 06/23/19 06:00 Intake Total 930 ml Balance 930 ml Radha Delgado MD Jun 23, 2019 15:14
[2019-06-23] MEDS: lisinopriL 10 MG TAB PO SCH (20:55)
[2019-06-23] MEDS: TAMSULOSIN 0.4 MG CAP PO SCH (20:55)
[2019-06-23] MEDS: VITAMIN D 1,000 INTERNATIONAL UNITS TABLET PO SCH (20:55)
[2019-06-23] MEDS: CYANOCOBALAMIN 500 MCG TAB PO SCH (20:56)
[2019-06-23] MEDS: DONEPEZIL 5 MG TAB PO SCH (20:56)
[2019-06-23] MEDS: DIVALPROEX 250MG *ER* TAB PO SCH (20:56)
[2019-06-24 06:00] VITALS: BP 134/70
[2019-06-24] MEDS: CETIRIZINE (ZyrTEC) 10 MG TAB PO SCH (09:41)
[2019-06-24] MEDS: ENOXAPARIN 30MG/0.3ML SYRINGE (J1650 PER 10MG) SC SCH (09:41)
[2019-06-24] MEDS: NYSTATIN 100,000 UNITS/GM TOPICAL PWD 15 GM TOP SCH ×2 (09:42→20:22)
--- NOTE | 2019-06-24 16:53 | IPNPDOC ---
Date Seen The patient was seen on 06/24/19. Progress Note SUBJECTIVE: Currently still awaiting placement. No acute events overnight. OBJECTIVE: VITAL SIGNS: Please see below PHYSICAL EXAMINATION: CONSTITUTIONAL: No acute distress, resting comfortably at bedside chair, AAO x 1 EYES: PERRLA, EOM intact HENT, MOUTH: Normocephalic, atraumatic, moist mucous membranes NECK: SUPPLE, no JVD, no lymphadenopathy, no carotid bruit CV: Regular rate and rhythm, S1S2 normal, no murmurs/rubs/gallops RESPIRATORY: Clear to auscultation bilaterally, no rales/rhonchi/wheezes GI: BS positive in 4 quadrants, soft, nontender, nondistended, no rebound or guarding, no organomegaly : Deferred MUSCULOSKELETAL: Right fifth toe amputated. Decreased ROM of all extremities. . No cyanosis, clubbing, swelling, joint deformity, extremity edema INTEGUMENTARY: Intact, no rashes, no lesions, no erythema NEUROLOGIC: Cranial Nerves II-XII are intact, no focal deficits PSYCHIATRIC: Mood and affect are normal CURRENT MEDICATIONS: Please see below LABORATORY DATA: Please see below IMAGING: No new imaging. ASSESSMENT: 83 y/o M admitted under inpatient status for treatment of gangrene of right 5th toe s/p amputation, chronic dementia awaiting placement. PLAN: 1. Chronic dementia. Awaiting [facility] placement. On chronic donepezil and Depakote. Trazodone for insomnia. 2. 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 Healing well. 3. Peripheral vascular disease, chronic. Status post amputation of the right 5th toe. Outpatient angiogram suggested. 4. Chronic kidney disease stage III, at baseline creatinine. F/u labs. 5. Pressure ulcers in bilateral heels. Boots are in place. The patient is Pravin lift and turn every hour. Wound care. 6. Benign prostatic hypertrophy (BPH). On chronic Flomax. 7. COPD. Stable, not currently on meds. 8. Hypertension. On lisinopril and controlled. 9. DVT px. Enoxaparin. DISPOSITION: Currently under inpatient status and awaiting placement. VS, I&O, 24H, Fishbone Vital Signs/I&O Vital Signs Date Time Temp Pulse Resp B/P (MAP) Pulse Ox O2 Delivery O2 Flow Rate FiO2 06/24/19 06:00 98.0 81 20 134/70 (91) 96 06/23/19 06:00 Room Air I&O- Last 24 Hours up to 6 AM 06/24/19 06:00 Intake Total 1260 ml Output Total 0 ml Balance 1260 ml Laboratory Data 24H LABS Laboratory Tests 2 06/23/19 20:36: Bedside Glucose (Misc Panel) 132H Current Medications Current Medications Medications (Trade) Dose Ordered Sig/Hubert Route PRN Reason Start Time Stop Time Status Last Admin Dose Admin Acetaminophen (Tylenol Tab) 650 mg Q4H PRN PO PAIN OR FEVER 02/12/19 02:30 06/16/19 10:09 Amlodipine Besylate (Norvasc) 5 mg BID PO 02/21/19 09:00 02/21/19 08:44 DC Amlodipine Besylate (Norvasc) 5 mg DAILY PO 05/10/19 09:00 05/10/19 09:32 DC Amlodipine Besylate (Norvasc) 5 mg QHS PO 04/20/19 21:00 04/29/19 14:56 DC 04/28/19 20:47 Amlodipine Besylate (Norvasc) 10 mg DAILY PO 05/03/19 09:00 05/09/19 09:24 DC 05/07/19 08:07 Amlodipine Besylate (Norvasc) 10 mg DAILY PO 02/12/19 09:00 02/13/19 09:42 DC 02/13/19 08:52 Amlodipine Besylate (Norvasc) 10 mg DAILY PO 02/13/19 09:00 02/13/19 09:45 DC Amlodipine Besylate (Norvasc) 10 mg DAILY PO 02/14/19 09:00 02/21/19 06:46 DC 02/19/19 08:33 Amlodipine Besylate (Norvasc) 10 mg QHS PO 02/21/19 21:00 04/20/19 15:21 DC 04/19/19 20:12 Amoxicillin/ Clavulanate Potassium (Augmentin) 500 mg BID PO 05/01/19 10:00 05/09/19 07:52 DC 05/08/19 19:47 Amoxicillin/ Clavulanate Potassium (Augmentin) 500 mg BID PO 03/07/19 21:00 03/12/19 10:33 DC 03/12/19 09:04 Amoxicillin/ Clavulanate Potassium (Augmentin) 875 mg BID PO 05/01/19 21:00 UNV Amoxicillin/ Clavulanate Potassium (Augmentin) 875 mg BID PO 02/15/19 09:00 02/22/19 08:59 DC 02/21/19 20:29 Ampicillin Sodium/ Sulbactam Sodium 1.5 gm/Dextrose 50 ml @ 100 mls/hr Q6H IV 02/12/19 05:00 02/15/19 09:27 DC 02/15/19 05:19 Ampicillin Sodium/ Sulbactam Sodium 3 gm/Dextrose 100 ml @ 200 mls/hr Q12H IV 03/06/19 23:00 03/07/19 17:17 DC 03/07/19 11:39 Atenolol (Tenormin) 12.5 mg BID PO 02/13/19 09:00 02/15/19 14:32 DC 02/14/19 20:57 Azithromycin (Zithromax Tab) 500 mg DAILY PO 03/07/19 09:00 03/13/19 14:18 DC 03/13/19 10:03 Azithromycin 500 mg/IV Miscellaneous Supplies 1 each/ Dextrose 255 ml @ 255 mls/hr Q24H IV 03/06/19 00:00 03/07/19 17:17 DC 03/07/19 00:44 Bisacodyl (Dulcolax Suppository) 10 mg Q2DP PRN [place] CONSTIPATION 02/12/19 18:45 02/13/19 14:23 Cephalexin Monohydrate (Keflex) 500 mg BID PO 05/25/19 09:00 06/07/19 23:59 DC 06/07/19 21:47 Cetirizine HCl (ZyrTEC) 10 mg DAILY PO 02/14/19 09:00 06/24/19 09:41 Cyanocobalamin (Vitamin B12) 500 mcg QHS PO 02/12/19 21:00 06/23/19 20:56 Dextrose/Lactated Ringer's 1,000 ml @ 40 mls/hr Q24H IV 02/12/19 02:30 02/12/19 17:11 DC 02/12/19 03:12 Divalproex Sodium (Depakote Er) 500 mg QHS PO 02/12/19 21:00 06/23/19 20:56 Docusate Sodium (Colace) 100 mg Q12HP PRN PO CONSTIPATION 05/03/19 11:45 Donepezil HCl (AriCEPT) 10 mg QHS PO 02/12/19 21:00 06/23/19 20:56 Enoxaparin Sodium (Lovenox) 30 mg DAILY SC 02/15/19 09:00 06/24/19 09:41 Home Med (Med Rec Complete!) ASDIRECTED XX 02/12/19 04:00 02/12/19 04:05 DC Hydralazine HCl (Apresoline) 10 mg Q4H IV 02/12/19 14:00 02/13/19 07:26 DC 02/13/19 05:23 Hydralazine HCl (Apresoline) 20 mg Q6H PO 02/12/19 12:00 02/12/19 13:20 DC Hydralazine HCl (Apresoline) 25 mg QID PO 02/13/19 09:00 02/17/19 12:49 DC 02/17/19 11:08 Isosorbide Dinitrate (Isordil) 20 mg Q6H PO 02/13/19 18:00 02/17/19 12:49 DC 02/17/19 11:06 Labetalol HCl (Normodyne, Trandate) 2 mg Q6HP PRN IV BP > 160/100 02/12/19 03:45 02/12/19 12:21 DC Lactated Ringer's 1,000 ml @ 75 mls/hr [id number] IV 04/28/19 08:15 04/29/19 08:06 DC 04/28/19 20:48 Lactated Ringer's 1,000 ml @ 75 mls/hr [id number] IV 04/29/19 14:30 05/01/19 07:51 DC 04/30/19 19:00 Levofloxacin (Levaquin) 250 mg Q24H PO 05/30/19 22:00 06/12/19 23:59 DC 06/12/19 21:39 Lisinopril (Prinivil) 5 mg QHS PO 02/21/19 21:00 04/29/19 14:56 DC 04/28/19 20:46 Lisinopril (Prinivil) 10 mg DAILY PO 05/03/19 09:00 05/09/19 09:24 DC 05/07/19 08:07 Lisinopril (Prinivil) 10 mg QHS PO 05/09/19 21:00 06/23/19 20:55 Lisinopril (Prinivil) 10 mg QHS PO 02/17/19 21:00 02/21/19 06:43 DC 02/20/19 20:31 Lisinopril (Prinivil) 10 mg QHS PO 02/21/19 21:00 02/21/19 08:44 DC Lisinopril (Prinivil) 20 mg QHS PO 02/21/19 21:00 02/21/19 06:46 DC Magnesium Hydroxide (Milk Of Magnesia) 30 ml DAILYPRN PRN PO CONSTIPATION 02/12/19 19:00 02/13/19 08:57 Metronidazole (Flagyl) 500 mg Q8H PO 05/01/19 14:00 05/03/19 10:32 DC 05/03/19 06:56 Miscellaneous (Unresolved Clarification Entry) SEE LABEL COMMENTS DAILY XX 04/15/19 09:00 Cancel Miscellaneous (Unresolved Clarification Entry) SEE LABEL COMMENTS DAILY XX 04/21/19 09:00 04/21/19 16:34 DC Miscellaneous (Unresolved Clarification Entry) SEE LABEL COMMENTS DAILY XX 05/17/19 09:00 05/17/19 11:43 DC Miscellaneous (Unresolved Clarification Entry) SEE LABEL COMMENTS DAILY XX 05/23/19 09:00 05/24/19 12:03 DC Miscellaneous (Unresolved Clarification Entry) SEE LABEL COMMENTS DAILY XX 05/05/19 09:00 05/05/19 11:26 DC Miscellaneous (Unresolved Clarification Entry) SEE LABEL COMMENTS DAILY XX 06/18/19 09:00 06/20/19 08:54 DC Miscellaneous (Unresolved Clarification Entry) SEE LABEL COMMENTS DAILY XX 02/21/19 09:00 02/22/19 06:40 DC Miscellaneous (Unresolved Clarification Entry) SEE LABEL COMMENTS DAILY XX 02/22/19 09:00 02/22/19 12:30 DC Miscellaneous (Unresolved Clarification Entry) SEE LABEL COMMENTS DAILY XX 02/26/19 09:00 02/26/19 12:38 DC Miscellaneous (Unresolved Clarification Entry) SEE LABEL COMMENTS DAILY XX 03/15/19 09:00 03/15/19 10:31 DC Miscellaneous (Unresolved Clarification Entry) SEE LABEL COMMENTS DAILY XX 03/25/19 09:00 03/25/19 12:55 DC Nitroglycerin (Nitrobid 2%) HOLD FOR SBP<140 1 INCH Q4H TOP 02/12/19 13:00 02/13/19 09:28 DC 02/13/19 08:53 Nystatin (Mycostatin Powder, Nystop) groin BID TOP 06/10/19 09:00 06/24/19 09:42 Piperacillin Sod/ Tazobactam Sod 3.375 gm/Dextrose 50 ml @ 50 mls/hr Q6H IV 04/29/19 15:00 05/01/19 07:51 DC 05/01/19 03:19 Sodium Biphosphate/ Sodium Phosphate (Fleet Enema) 1 ea Q3DP PRN [place] CONSTIPATION 02/12/19 19:00 Sodium Chloride ([place] Nasal [place]) 2 spray Q2HP PRN NA NASAL DRYNESS 02/13/19 09:30 Sodium Chloride ([place] Nasal [place]) 2 spray TID NA 02/13/19 09:00 03/18/19 09:01 DC 03/17/19 21:33 Tamsulosin HCl (Flomax) 0.4 mg QHS PO 02/12/19 21:00 06/23/19 20:55 Trazodone HCl (Desyrel) 25 mg QHSP PRN PO INSOMNIA 02/21/19 06:45 04/23/19 01:42 Vancomycin HCl 750 mg/IV Miscellaneous Supplies 1 each/ Dextrose 275 ml @ 275 mls/hr Q12H IV 02/12/19 02:30 02/12/19 05:32 DC Vancomycin HCl 750 mg/IV Miscellaneous Supplies 1 each/ Dextrose 275 ml @ 275 mls/hr Q24H IV 04/29/19 16:00 04/30/19 12:06 DC 04/29/19 16:50 Vancomycin HCl 1000 mg/IV Miscellaneous Supplies 1 each/ Dextrose 270 ml @ 270 mls/hr Q18H IV 02/12/19 06:00 02/15/19 06:02 DC 02/14/19 11:20 Vancomycin HCl 1000 mg/IV Miscellaneous Supplies 1 each/ Dextrose 270 ml @ 270 mls/hr Q24H IV 02/15/19 12:00 02/15/19 09:27 DC Vitamin D (Vitamin D) 1,000 units QPM PO 02/12/19 21:00 06/23/19 20:55 Allergies Coded Allergies: No Known Allergies (Unverified , 12/09/18) Radha Delgado MD Jun 24, 2019 16:53
[2019-06-24] MEDS: CYANOCOBALAMIN 500 MCG TAB PO SCH (20:21)
[2019-06-24] MEDS: VITAMIN D 1,000 INTERNATIONAL UNITS TABLET PO SCH (20:21)
[2019-06-24] MEDS: TAMSULOSIN 0.4 MG CAP PO SCH (20:21)
[2019-06-24] MEDS: DONEPEZIL 5 MG TAB PO SCH (20:21)
[2019-06-24] MEDS: lisinopriL 10 MG TAB PO SCH (20:22)
[2019-06-24] MEDS: DIVALPROEX 250MG *ER* TAB PO SCH (20:22)
[2019-06-25 06:00] VITALS: BP 133/61
[2019-06-25] MEDS: ENOXAPARIN 30MG/0.3ML SYRINGE (J1650 PER 10MG) SC SCH ×2 (09:00→09:40)
[2019-06-25] MEDS: CETIRIZINE (ZyrTEC) 10 MG TAB PO SCH (09:39)
[2019-06-25] MEDS: NYSTATIN 100,000 UNITS/GM TOPICAL PWD 15 GM TOP SCH ×2 (09:40→20:53)
--- NOTE | 2019-06-25 18:27 | IPNPDOC ---
Date Seen The patient was seen on 06/25/19. Progress Note SUBJECTIVE: No acute events overnight. Currently still awaiting placement. OBJECTIVE: VITAL SIGNS: Please see below PHYSICAL EXAMINATION: CONSTITUTIONAL: No acute distress, resting comfortably at bedside chair, AAO x 1 EYES: PERRLA, EOM intact HENT, MOUTH: Normocephalic, atraumatic, moist mucous membranes NECK: SUPPLE, no JVD, no lymphadenopathy, no carotid bruit CV: Regular rate and rhythm, S1S2 normal, no murmurs/rubs/gallops RESPIRATORY: Clear to auscultation bilaterally, no rales/rhonchi/wheezes GI: BS positive in 4 quadrants, soft, nontender, nondistended, no rebound or guarding, no organomegaly : Deferred MUSCULOSKELETAL: Right fifth toe amputated. Decreased ROM of all extremities. . No cyanosis, clubbing, swelling, joint deformity, extremity edema INTEGUMENTARY: Intact, no rashes, no lesions, no erythema NEUROLOGIC: Cranial Nerves II-XII are intact, no focal deficits PSYCHIATRIC: Mood and affect are normal CURRENT MEDICATIONS: Please see below LABORATORY DATA: Please see below IMAGING: No new imaging. ASSESSMENT: 83 y/o M admitted under inpatient status for treatment of gangrene of right 5th toe s/p amputation, chronic dementia awaiting placement. PLAN: 1. Chronic dementia. Await[facility] placement. On chronic donepezil and Depakote. Trazodone for insomnia. 2. 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 Healing well. 3. Peripheral vascular disease, chronic. Status post amputation of the right 5th toe. Outpatient angiogram suggested. 4. Chronic kidney disease stage III, at baseline creatinine. F/u labs. 5. Pressure ulcers in bilateral heels. Boots are in place. The patient is Pravin lift and turn every hour. Wound care. 6. Benign prostatic hypertrophy (BPH). On chronic Flomax. 7. COPD. Stable, not currently on meds. 8. Hypertension. On lisinopril and controlled. 9. DVT px. Enoxaparin. DISPOSITION: Currently under inpatient status and awaiting placement. VS, I&O, 24H, Fishbone Vital Signs/I&O Vital Signs Date Time Temp Pulse Resp B/P (MAP) Pulse Ox O2 Delivery O2 Flow Rate FiO2 06/25/19 06:00 97.0 84 18 133/61 (85) 97 06/23/19 06:00 Room Air I&O- Last 24 Hours up to 6 AM 06/25/19 06:00 Intake Total 420 ml Output Total 0 ml Balance 420 ml Radha Delgado MD Jun 25, 2019 18:27
[2019-06-25] MEDS: DIVALPROEX 250MG *ER* TAB PO SCH (20:53)
[2019-06-25] MEDS: TAMSULOSIN 0.4 MG CAP PO SCH (20:53)
[2019-06-25] MEDS: CYANOCOBALAMIN 500 MCG TAB PO SCH (20:53)
[2019-06-25] MEDS: DONEPEZIL 5 MG TAB PO SCH (20:53)
[2019-06-25] MEDS: VITAMIN D 1,000 INTERNATIONAL UNITS TABLET PO SCH (20:53)
[2019-06-25] MEDS: lisinopriL 10 MG TAB PO SCH (20:54)
[2019-06-26 06:00] VITALS: BP 155/68
[2019-06-26] MEDS: ENOXAPARIN 30MG/0.3ML SYRINGE (J1650 PER 10MG) SC SCH (09:44)
[2019-06-26] MEDS: NYSTATIN 100,000 UNITS/GM TOPICAL PWD 15 GM TOP SCH ×2 (09:44→20:40)
[2019-06-26] MEDS: CETIRIZINE (ZyrTEC) 10 MG TAB PO SCH (09:44)
--- NOTE | 2019-06-26 18:29 | IPNPDOC ---
Date Seen The patient was seen on 06/26/19. Progress Note SUBJECTIVE: No acute events overnight. Currently still awaiting placement. OBJECTIVE: VITAL SIGNS: Please see below PHYSICAL EXAMINATION: CONSTITUTIONAL: No acute distress, resting comfortably at bedside chair, AAO x 1 EYES: PERRLA, EOM intact HENT, MOUTH: Normocephalic, atraumatic, moist mucous membranes NECK: SUPPLE, no JVD, no lymphadenopathy, no carotid bruit CV: Regular rate and rhythm, S1S2 normal, no murmurs/rubs/gallops RESPIRATORY: Clear to auscultation bilaterally, no rales/rhonchi/wheezes GI: BS positive in 4 quadrants, soft, nontender, nondistended, no rebound or guarding, no organomegaly : Deferred MUSCULOSKELETAL: Right fifth toe amputated. Decreased ROM of all extremities. . No cyanosis, clubbing, swelling, joint deformity, extremity edema INTEGUMENTARY: Intact, no rashes, no lesions, no erythema NEUROLOGIC: Cranial Nerves II-XII are intact, no focal deficits PSYCHIATRIC: Mood and affect are normal CURRENT MEDICATIONS: Please see below LABORATORY DATA: Please see below IMAGING: No new imaging. ASSESSMENT: 83 y/o M admitted under inpatient status for treatment of gangrene of right 5th toe s/p amputation, chronic dementia awaiting placement. PLAN: 1. Chronic dementia. Awaiting [facility] placement. On chronic donepezil and Depakote. Trazodone for insomnia. 2. 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 Healing well. 3. Peripheral vascular disease, chronic. Status post amputation of the right 5th toe. Outpatient angiogram suggested. 4. Chronic kidney disease stage III, at baseline creatinine. F/u labs. 5. Pressure ulcers in bilateral heels. Boots are in place. The patient is Pravin lift and turn every hour. Wound care. 6. Benign prostatic hypertrophy (BPH). On chronic Flomax. 7. COPD. Stable, not currently on meds. 8. Hypertension. On lisinopril and controlled. 9. DVT px. Enoxaparin. DISPOSITION: Currently under inpatient status and awaiting placement. VS, I&O, 24H, Fishbone Vital Signs/I&O Vital Signs Date Time Temp Pulse Resp B/P (MAP) Pulse Ox O2 Delivery O2 Flow Rate FiO2 06/26/19 06:00 97.3 61 17 155/68 (97) 95 Room Air I&O- Last 24 Hours up to 6 AM 06/26/19 06:00 Intake Total 1260 ml Output Total 0 ml Balance 1260 ml Current Medications Current Medications Medications (Trade) Dose Ordered Sig/Hubert Route PRN Reason Start Time Stop Time Status Last Admin Dose Admin Acetaminophen (Tylenol Tab) 650 mg Q4H PRN PO PAIN OR FEVER 02/12/19 02:30 06/16/19 10:09 Amlodipine Besylate (Norvasc) 5 mg BID PO 02/21/19 09:00 02/21/19 08:44 DC Amlodipine Besylate (Norvasc) 5 mg DAILY PO 05/10/19 09:00 05/10/19 09:32 DC Amlodipine Besylate (Norvasc) 5 mg QHS PO 04/20/19 21:00 04/29/19 14:56 DC 04/28/19 20:47 Amlodipine Besylate (Norvasc) 10 mg DAILY PO 05/03/19 09:00 05/09/19 09:24 DC 05/07/19 08:07 Amlodipine Besylate (Norvasc) 10 mg DAILY PO 02/12/19 09:00 02/13/19 09:42 DC 02/13/19 08:52 Amlodipine Besylate (Norvasc) 10 mg DAILY PO 02/13/19 09:00 02/13/19 09:45 DC Amlodipine Besylate (Norvasc) 10 mg DAILY PO 02/14/19 09:00 02/21/19 06:46 DC 02/19/19 08:33 Amlodipine Besylate (Norvasc) 10 mg QHS PO 02/21/19 21:00 04/20/19 15:21 DC 04/19/19 20:12 Amoxicillin/ Clavulanate Potassium (Augmentin) 500 mg BID PO 05/01/19 10:00 05/09/19 07:52 DC 05/08/19 19:47 Amoxicillin/ Clavulanate Potassium (Augmentin) 500 mg BID PO 03/07/19 21:00 03/12/19 10:33 DC 03/12/19 09:04 Amoxicillin/ Clavulanate Potassium (Augmentin) 875 mg BID PO 05/01/19 21:00 UNV Amoxicillin/ Clavulanate Potassium (Augmentin) 875 mg BID PO 02/15/19 09:00 02/22/19 08:59 DC 02/21/19 20:29 Ampicillin Sodium/ Sulbactam Sodium 1.5 gm/Dextrose 50 ml @ 100 mls/hr Q6H IV 02/12/19 05:00 02/15/19 09:27 DC 02/15/19 05:19 Ampicillin Sodium/ Sulbactam Sodium 3 gm/Dextrose 100 ml @ 200 mls/hr Q12H IV 03/06/19 23:00 03/07/19 17:17 DC 03/07/19 11:39 Atenolol (Tenormin) 12.5 mg BID PO 02/13/19 09:00 02/15/19 14:32 DC 02/14/19 20:57 Azithromycin (Zithromax Tab) 500 mg DAILY PO 03/07/19 09:00 03/13/19 14:18 DC 03/13/19 10:03 Azithromycin 500 mg/IV Miscellaneous Supplies 1 each/ Dextrose 255 ml @ 255 mls/hr Q24H IV 03/06/19 00:00 03/07/19 17:17 DC 03/07/19 00:44 Bisacodyl (Dulcolax Suppository) 10 mg Q2DP PRN [place] CONSTIPATION 02/12/19 18:45 02/13/19 14:23 Cephalexin Monohydrate (Keflex) 500 mg BID PO 05/25/19 09:00 06/07/19 23:59 DC 06/07/19 21:47 Cetirizine HCl (ZyrTEC) 10 mg DAILY PO 02/14/19 09:00 06/26/19 09:44 Cyanocobalamin (Vitamin B12) 500 mcg QHS PO 02/12/19 21:00 06/25/19 20:53 Dextrose/Lactated Ringer's 1,000 ml @ 40 mls/hr Q24H IV 02/12/19 02:30 02/12/19 17:11 DC 02/12/19 03:12 Divalproex Sodium (Depakote Er) 500 mg QHS PO 02/12/19 21:00 06/25/19 20:53 Docusate Sodium (Colace) 100 mg Q12HP PRN PO CONSTIPATION 05/03/19 11:45 Donepezil HCl (AriCEPT) 10 mg QHS PO 02/12/19 21:00 06/25/19 20:53 Enoxaparin Sodium (Lovenox) 30 mg DAILY SC 02/15/19 09:00 06/26/19 09:44 Home Med (Med Rec Complete!) ASDIRECTED XX 02/12/19 04:00 02/12/19 04:05 DC Hydralazine HCl (Apresoline) 10 mg Q4H IV 02/12/19 14:00 02/13/19 07:26 DC 02/13/19 05:23 Hydralazine HCl (Apresoline) 20 mg Q6H PO 02/12/19 12:00 02/12/19 13:20 DC Hydralazine HCl (Apresoline) 25 mg QID PO 02/13/19 09:00 02/17/19 12:49 DC 02/17/19 11:08 Isosorbide Dinitrate (Isordil) 20 mg Q6H PO 02/13/19 18:00 02/17/19 12:49 DC 02/17/19 11:06 Labetalol HCl (Normodyne, Trandate) 2 mg Q6HP PRN IV BP > 160/100 02/12/19 03:45 02/12/19 12:21 DC Lactated Ringer's 1,000 ml @ 75 mls/hr [id number] IV 04/28/19 08:15 04/29/19 08:06 DC 04/28/19 20:48 Lactated Ringer's 1,000 ml @ 75 mls/hr [id number] IV 04/29/19 14:30 05/01/19 07:51 DC 04/30/19 19:00 Levofloxacin (Levaquin) 250 mg Q24H PO 05/30/19 22:00 06/12/19 23:59 DC 06/12/19 21:39 Lisinopril (Prinivil) 5 mg QHS PO 02/21/19 21:00 04/29/19 14:56 DC 04/28/19 20:46 Lisinopril (Prinivil) 10 mg DAILY PO 05/03/19 09:00 05/09/19 09:24 DC 05/07/19 08:07 Lisinopril (Prinivil) 10 mg QHS PO 05/09/19 21:00 06/25/19 20:54 Lisinopril (Prinivil) 10 mg QHS PO 02/17/19 21:00 02/21/19 06:43 DC 02/20/19 20:31 Lisinopril (Prinivil) 10 mg QHS PO 02/21/19 21:00 02/21/19 08:44 DC Lisinopril (Prinivil) 20 mg QHS PO 02/21/19 21:00 02/21/19 06:46 DC Magnesium Hydroxide (Milk Of Magnesia) 30 ml DAILYPRN PRN PO CONSTIPATION 02/12/19 19:00 02/13/19 08:57 Metronidazole (Flagyl) 500 mg Q8H PO 05/01/19 14:00 05/03/19 10:32 DC 05/03/19 06:56 Miscellaneous (Unresolved Clarification Entry) SEE LABEL COMMENTS DAILY XX 04/15/19 09:00 Cancel Miscellaneous (Unresolved Clarification Entry) SEE LABEL COMMENTS DAILY XX 04/21/19 09:00 04/21/19 16:34 DC Miscellaneous (Unresolved Clarification Entry) SEE LABEL COMMENTS DAILY XX 05/17/19 09:00 05/17/19 11:43 DC Miscellaneous (Unresolved Clarification Entry) SEE LABEL COMMENTS DAILY XX 05/23/19 09:00 05/24/19 12:03 DC Miscellaneous (Unresolved Clarification Entry) SEE LABEL COMMENTS DAILY XX 05/05/19 09:00 05/05/19 11:26 DC Miscellaneous (Unresolved Clarification Entry) SEE LABEL COMMENTS DAILY XX 06/18/19 09:00 06/20/19 08:54 DC Miscellaneous (Unresolved Clarification Entry) SEE LABEL COMMENTS DAILY XX 06/25/19 09:00 06/25/19 11:30 DC Miscellaneous (Unresolved Clarification Entry) SEE LABEL COMMENTS DAILY XX 02/21/19 09:00 02/22/19 06:40 DC Miscellaneous (Unresolved Clarification Entry) SEE LABEL COMMENTS DAILY XX 02/22/19 09:00 02/22/19 12:30 DC Miscellaneous (Unresolved Clarification Entry) SEE LABEL COMMENTS DAILY XX 02/26/19 09:00 02/26/19 12:38 DC Miscellaneous (Unresolved Clarification Entry) SEE LABEL COMMENTS DAILY XX 03/15/19 09:00 03/15/19 10:31 DC Miscellaneous (Unresolved Clarification Entry) SEE LABEL COMMENTS DAILY XX 03/25/19 09:00 03/25/19 12:55 DC Nitroglycerin (Nitrobid 2%) HOLD FOR SBP<140 1 INCH Q4H TOP 02/12/19 13:00 02/13/19 09:28 DC 02/13/19 08:53 Nystatin (Mycostatin Powder, Nystop) groin BID TOP 06/10/19 09:00 06/26/19 09:44 Piperacillin Sod/ Tazobactam Sod 3.375 gm/Dextrose 50 ml @ 50 mls/hr Q6H IV 04/29/19 15:00 05/01/19 07:51 DC 05/01/19 03:19 Sodium Biphosphate/ Sodium Phosphate (Fleet Enema) 1 ea Q3DP PRN [place] CONSTIPATION 02/12/19 19:00 Sodium Chloride ([place] Nasal [place]) 2 spray Q2HP PRN NA NASAL DRYNESS 02/13/19 09:30 Sodium Chloride ([place] Nasal [place]) 2 spray TID NA 02/13/19 09:00 03/18/19 09:01 DC 03/17/19 21:33 Tamsulosin HCl (Flomax) 0.4 mg QHS PO 02/12/19 21:00 06/25/19 20:53 Trazodone HCl (Desyrel) 25 mg QHSP PRN PO INSOMNIA 02/21/19 06:45 04/23/19 01:42 Vancomycin HCl 750 mg/IV Miscellaneous Supplies 1 each/ Dextrose 275 ml @ 275 mls/hr Q12H IV 02/12/19 02:30 02/12/19 05:32 DC Vancomycin HCl 750 mg/IV Miscellaneous Supplies 1 each/ Dextrose 275 ml @ 275 mls/hr Q24H IV 04/29/19 16:00 04/30/19 12:06 DC 04/29/19 16:50 Vancomycin HCl 1000 mg/IV Miscellaneous Supplies 1 each/ Dextrose 270 ml @ 270 mls/hr Q18H IV 02/12/19 06:00 02/15/19 06:02 DC 02/14/19 11:20 Vancomycin HCl 1000 mg/IV Miscellaneous Supplies 1 each/ Dextrose 270 ml @ 270 mls/hr Q24H IV 02/15/19 12:00 02/15/19 09:27 DC Vitamin D (Vitamin D) 1,000 units QPM PO 02/12/19 21:00 06/25/19 20:53 Allergies Coded Allergies: No Known Allergies (Unverified , 12/09/18) Radha Delgado MD Jun 26, 2019 18:29
[2019-06-26] MEDS: TAMSULOSIN 0.4 MG CAP PO SCH (20:38)
[2019-06-26] MEDS: DIVALPROEX 250MG *ER* TAB PO SCH (20:38)
[2019-06-26] MEDS: DONEPEZIL 5 MG TAB PO SCH (20:38)
[2019-06-26] MEDS: VITAMIN D 1,000 INTERNATIONAL UNITS TABLET PO SCH (20:38)
[2019-06-26] MEDS: lisinopriL 10 MG TAB PO SCH (20:40)
[2019-06-26] MEDS: CYANOCOBALAMIN 500 MCG TAB PO SCH (20:40)
[2019-06-27 06:00] VITALS: BP 129/49
[2019-06-27] MEDS: CETIRIZINE (ZyrTEC) 10 MG TAB PO SCH (10:46)
[2019-06-27] MEDS: ENOXAPARIN 30MG/0.3ML SYRINGE (J1650 PER 10MG) SC SCH (10:47)
[2019-06-27] MEDS: NYSTATIN 100,000 UNITS/GM TOPICAL PWD 15 GM TOP SCH ×2 (10:47→21:51)
--- NOTE | 2019-06-27 15:05 | IPNPDOC ---
Date Seen The patient was seen on 06/27/19. Progress Note SUBJECTIVE: Very pleasant this AM with no complaints. No acute events overnight. Currently awaiting placement. OBJECTIVE: VITAL SIGNS: Please see below PHYSICAL EXAMINATION: CONSTITUTIONAL: No acute distress, resting comfortably at bedside chair, AAO x 1 EYES: PERRLA, EOM intact HENT, MOUTH: Normocephalic, atraumatic, moist mucous membranes NECK: SUPPLE, no JVD, no lymphadenopathy, no carotid bruit CV: Regular rate and rhythm, S1S2 normal, no murmurs/rubs/gallops RESPIRATORY: Clear to auscultation bilaterally, no rales/rhonchi/wheezes GI: BS positive in 4 quadrants, soft, nontender, nondistended, no rebound or guarding, no organomegaly : Deferred MUSCULOSKELETAL: Right fifth toe amputated. Decreased ROM of all extremities. . No cyanosis, clubbing, swelling, joint deformity, extremity edema INTEGUMENTARY: Intact, no rashes, no lesions, no erythema NEUROLOGIC: Cranial Nerves II-XII are intact, no focal deficits PSYCHIATRIC: Mood and affect are normal CURRENT MEDICATIONS: Please see below LABORATORY DATA: Please see below IMAGING: No new imaging. ASSESSMENT: 83 y/o M admitted under inpatient status for treatment of gangrene of right 5th toe s/p amputation, chronic dementia awaiting placement. PLAN: 1. Chronic dementia. Awaiting [facility] placement. On chronic donepezil and Depakote. Trazodone for insomnia. 2. 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 Healing well. 3. Peripheral vascular disease, chronic. Status post amputation of the right 5th toe. Outpatient angiogram suggested. 4. Chronic kidney disease stage III, at baseline creatinine. F/u labs. 5. Pressure ulcers in bilateral heels. Boots are in place. The patient is Pravin lift and turn every hour. Wound care. 6. Benign prostatic hypertrophy (BPH). On chronic Flomax. 7. COPD. Stable, not currently on meds. 8. Hypertension. On lisinopril and controlled. 9. DVT px. Enoxaparin. DISPOSITION: Currently under inpatient status and awaiting placement. VS, I&O, 24H, Fishbone Vital Signs/I&O Vital Signs Date Time Temp Pulse Resp B/P (MAP) Pulse Ox O2 Delivery O2 Flow Rate FiO2 06/27/19 06:00 97.3 54 17 129/49 (75) 95 Room Air I&O- Last 24 Hours up to 6 AM 06/27/19 06:00 Intake Total 1620 ml Balance 1620 ml Radha Delgado MD Jun 27, 2019 15:05
[2019-06-27] MEDS: CYANOCOBALAMIN 500 MCG TAB PO SCH (21:50)
[2019-06-27] MEDS: DIVALPROEX 250MG *ER* TAB PO SCH (21:50)
[2019-06-27] MEDS: lisinopriL 10 MG TAB PO SCH (21:50)
[2019-06-27] MEDS: TAMSULOSIN 0.4 MG CAP PO SCH (21:51)
[2019-06-27] MEDS: DONEPEZIL 5 MG TAB PO SCH (21:51)
[2019-06-27] MEDS: VITAMIN D 1,000 INTERNATIONAL UNITS TABLET PO SCH (21:51)
[2019-06-28 06:00] VITALS: BP 130/69
[2019-06-28 09:00] LABS: HEMOGLOBIN 10.2 g/dl (13.5-17.5); MEAN CORPUSCULAR HEMOGLOBIN 31.3 pg (27.0-33.0); MEAN CORPUSCULAR HGB CONC 31.9 g/dl (32.0-36.5); MEAN CORPUSCULAR VOLUME 98.2 fl (80.0-96.0); PLATELET COUNT, AUTOMATED 387 10^3/uL (150-450); RED BLOOD COUNT 3.26 10^6/uL (4.30-6.10); WHITE BLOOD COUNT 11.9 10^3/uL (4.0-10.0)
[2019-06-28 09:19] LABS: BLOOD UREA NITROGEN 32 MG/DL (7-18); CALCIUM LEVEL 8.3 MG/DL (8.8-10.2); CARBON DIOXIDE LEVEL 30 MEQ/L (21-32); CHLORIDE LEVEL 108 MEQ/L (98-107); CREATININE FOR GFR 1.15 MG/DL (0.70-1.30); GLOMERULAR FILTRATION RATE > 60.0 (>35); GLUCOSE, FASTING 79 MG/DL (70-100); POTASSIUM SERUM 4.4 MEQ/L (3.5-5.1); SODIUM LEVEL 143 MEQ/L (136-145)
[2019-06-28] MEDS: ENOXAPARIN 30MG/0.3ML SYRINGE (J1650 PER 10MG) SC SCH (09:28)
[2019-06-28] MEDS: CETIRIZINE (ZyrTEC) 10 MG TAB PO SCH (09:28)
[2019-06-28] MEDS: NYSTATIN 100,000 UNITS/GM TOPICAL PWD 15 GM TOP SCH ×2 (09:28→21:25)
--- NOTE | 2019-06-28 13:12 | IPN ---
DATE OF VISIT: 06/28/2019 I was reconsulted to evaluate the patient's right fourth toe. There has apparently been progressive gangrenous changes now to this fourth toe, which now is nearly fully involved. PHYSICAL EXAMINATION: The fourth toe has distal dry gangrene. Adjacent to the wound, there is some trace purulence. ASSESSMENT: 83-year-old male with peripheral vascular disease with fourth toe gangrene. PLAN: Ultimately suspect that the patient will require fourth toe amputation. I did speak with his son Gregory, who seemed in agreement. We will have to speak with the patient's , Sirisha, who is the healthcare proxy for Cristian. If I can get consent, we will ultimately plan for doing this at bedside.
--- NOTE | 2019-06-28 16:40 | IPNPDOC ---
Date Seen The patient was seen on 06/28/19. Progress Note SUBJECTIVE: Very sleepy this AM, pulled away when examining his right foot digits- one of which was black and appears gangrenous. No acute events overnight. OBJECTIVE: VITAL SIGNS: Please see below PHYSICAL EXAMINATION: CONSTITUTIONAL: Upset with us checking his feet, resting in bed, AAO x 1 EYES: PERRLA, EOM intact HENT, MOUTH: Normocephalic, atraumatic, moist mucous membranes NECK: SUPPLE, no JVD, no lymphadenopathy, no carotid bruit CV: Regular rate and rhythm, S1S2 normal, no murmurs/rubs/gallops RESPIRATORY: Clear to auscultation bilaterally, no rales/rhonchi/wheezes GI: BS positive in 4 quadrants, soft, nontender, nondistended, no rebound or guarding, no organomegaly : Deferred MUSCULOSKELETAL: Right fifth toe amputated. right 4th toe is black, hardened and gangrenous. Some trace purulence to the right of the toe. Eschar on right lateral side of foot, nonfluctuant underneath and nonsuppurative. No foul smell coming from foot. Contracted lower ext bilaterally. No cyanosis, clubbing, swelling, joint deformity, extremity edema INTEGUMENTARY: Intact, no rashes, no lesions, no erythema NEUROLOGIC: Cranial Nerves II-XII are intact, no focal deficits CURRENT MEDICATIONS: Please see below LABORATORY DATA: Please see below IMAGING: No new imaging. ASSESSMENT: 83 y/o M admitted under inpatient status for treatment of gangrene of right 5th toe s/p amputation, new right 4th toe dry gangrene, chronic dementia awaiting placement. PLAN: 1. Distal dry gangrene of right 4th toe. Patient is s/p amputation of gangrenous right 5th toe on 05/25/19, the digit next to the one of concern today. Hx of chronic peripheral vascular disease. Dr. Murphy (podiatry) reconsulted and saw patient this afternoon. Suspecting patient will require fourth toe amputation, he is reaching out to family to see if this will be consented to. 2. Chronic dementia. Awaiting care home placement. Patient is currently at baseline. C/w donepezil, depakote. 3. Peripheral vascular disease, chronic. Status post amputation of the right 5th toe and likely needing right 4th toe amputated as well. Outpatient angiogram suggested previously. 4. Chronic kidney disease stage III, at baseline creatinine. F/u labs. 5. Pressure ulcers in bilateral heels. Boots are in place. The patient is Pravin lift and turn every hour. Wound care. 6. Benign prostatic hypertrophy (BPH). C/w Flomax. 7. COPD. Stable, not currently on meds. 8. Hypertension. On lisinopril and controlled. 9. Insomnia. Trazodone. 10. DVT px. Enoxaparin. DISPOSITION: Patient has been awaiting placement for some time now. technical manager and discharge planning team has been in touch with letting her know what they need on their end. The fourth toe has distal dry gangrene. Adjacent to the wound, there is some trace purulence. ASSESSMENT: 83-year-old male with peripheral vascular disease with fourth toe gangrene. PLAN: VS, I&O, 24H, Fishbone Vital Signs/I&O Vital Signs Date Time Temp Pulse Resp B/P (MAP) Pulse Ox O2 Delivery O2 Flow Rate FiO2 06/28/19 06:00 97.6 84 18 130/69 (89) 96 06/27/19 06:00 Room Air I&O- Last 24 Hours up to 6 AM 06/28/19 06:00 Intake Total 1320 ml Output Total 0 ml Balance 1320 ml Laboratory Data 24H LABS Laboratory Tests 2 06/28/19 08:47: Nucleated Red Blood Cells % (auto) 0.0, Anion Gap 5L, Glomerular Filtration Rate > 60.0, Calcium Level 8.3L CBC/BMP Laboratory Tests 06/28/19 08:47 Current Medications Current Medications Medications (Trade) Dose Ordered Sig/Hubert Route PRN Reason Start Time Stop Time Status Last Admin Dose Admin Acetaminophen (Tylenol Tab) 650 mg Q4H PRN PO PAIN OR FEVER 02/12/19 02:30 06/16/19 10:09 Amlodipine Besylate (Norvasc) 5 mg BID PO 02/21/19 09:00 02/21/19 08:44 DC Amlodipine Besylate (Norvasc) 5 mg DAILY PO 05/10/19 09:00 05/10/19 09:32 DC Amlodipine Besylate (Norvasc) 5 mg QHS PO 04/20/19 21:00 04/29/19 14:56 DC 04/28/19 20:47 Amlodipine Besylate (Norvasc) 10 mg DAILY PO 05/03/19 09:00 05/09/19 09:24 DC 05/07/19 08:07 Amlodipine Besylate (Norvasc) 10 mg DAILY PO 02/12/19 09:00 02/13/19 09:42 DC 02/13/19 08:52 Amlodipine Besylate (Norvasc) 10 mg DAILY PO 02/13/19 09:00 02/13/19 09:45 DC Amlodipine Besylate (Norvasc) 10 mg DAILY PO 02/14/19 09:00 02/21/19 06:46 DC 02/19/19 08:33 Amlodipine Besylate (Norvasc) 10 mg QHS PO 02/21/19 21:00 04/20/19 15:21 DC 04/19/19 20:12 Amoxicillin/ Clavulanate Potassium (Augmentin) 500 mg BID PO 05/01/19 10:00 05/09/19 07:52 DC 05/08/19 19:47 Amoxicillin/ Clavulanate Potassium (Augmentin) 500 mg BID PO 03/07/19 21:00 03/12/19 10:33 DC 03/12/19 09:04 Amoxicillin/ Clavulanate Potassium (Augmentin) 875 mg BID PO 05/01/19 21:00 UNV Amoxicillin/ Clavulanate Potassium (Augmentin) 875 mg BID PO 02/15/19 09:00 02/22/19 08:59 DC 02/21/19 20:29 Ampicillin Sodium/ Sulbactam Sodium 1.5 gm/Dextrose 50 ml @ 100 mls/hr Q6H IV 02/12/19 05:00 02/15/19 09:27 DC 02/15/19 05:19 Ampicillin Sodium/ Sulbactam Sodium 3 gm/Dextrose 100 ml @ 200 mls/hr Q12H IV 03/06/19 23:00 03/07/19 17:17 DC 03/07/19 11:39 Atenolol (Tenormin) 12.5 mg BID PO 02/13/19 09:00 02/15/19 14:32 DC 02/14/19 20:57 Azithromycin (Zithromax Tab) 500 mg DAILY PO 03/07/19 09:00 03/13/19 14:18 DC 03/13/19 10:03 Azithromycin 500 mg/IV Miscellaneous Supplies 1 each/ Dextrose 255 ml @ 255 mls/hr Q24H IV 03/06/19 00:00 03/07/19 17:17 DC 03/07/19 00:44 Bisacodyl (Dulcolax Suppository) 10 mg Q2DP PRN [place] CONSTIPATION 02/12/19 18:45 02/13/19 14:23 Cephalexin Monohydrate (Keflex) 500 mg BID PO 05/25/19 09:00 06/07/19 23:59 DC 06/07/19 21:47 Cetirizine HCl (ZyrTEC) 10 mg DAILY PO 02/14/19 09:00 06/28/19 09:28 Cyanocobalamin (Vitamin B12) 500 mcg QHS PO 02/12/19 21:00 06/27/19 21:50 Dextrose/Lactated Ringer's 1,000 ml @ 40 mls/hr Q24H IV 02/12/19 02:30 02/12/19 17:11 DC 02/12/19 03:12 Divalproex Sodium (Depakote Er) 500 mg QHS PO 02/12/19 21:00 06/27/19 21:50 Docusate Sodium (Colace) 100 mg Q12HP PRN PO CONSTIPATION 05/03/19 11:45 Donepezil HCl (AriCEPT) 10 mg QHS PO 02/12/19 21:00 06/27/19 21:51 Enoxaparin Sodium (Lovenox) 30 mg DAILY SC 02/15/19 09:00 06/28/19 09:28 Home Med (Med Rec Complete!) ASDIRECTED XX 02/12/19 04:00 02/12/19 04:05 DC Hydralazine HCl (Apresoline) 10 mg Q4H IV 02/12/19 14:00 02/13/19 07:26 DC 02/13/19 05:23 Hydralazine HCl (Apresoline) 20 mg Q6H PO 02/12/19 12:00 02/12/19 13:20 DC Hydralazine HCl (Apresoline) 25 mg QID PO 02/13/19 09:00 02/17/19 12:49 DC 02/17/19 11:08 Isosorbide Dinitrate (Isordil) 20 mg Q6H PO 02/13/19 18:00 02/17/19 12:49 DC 02/17/19 11:06 Labetalol HCl (Normodyne, Trandate) 2 mg Q6HP PRN IV BP > 160/100 02/12/19 03:45 02/12/19 12:21 DC Lactated Ringer's 1,000 ml @ 75 mls/hr [id number] IV 04/28/19 08:15 04/29/19 08:06 DC 04/28/19 20:48 Lactated Ringer's 1,000 ml @ 75 mls/hr [id number] IV 04/29/19 14:30 05/01/19 07:51 DC 04/30/19 19:00 Levofloxacin (Levaquin) 250 mg Q24H PO 05/30/19 22:00 06/12/19 23:59 DC 06/12/19 21:39 Lisinopril (Prinivil) 5 mg QHS PO 02/21/19 21:00 04/29/19 14:56 DC 04/28/19 20:46 Lisinopril (Prinivil) 10 mg DAILY PO 05/03/19 09:00 05/09/19 09:24 DC 05/07/19 08:07 Lisinopril (Prinivil) 10 mg QHS PO 05/09/19 21:00 06/27/19 21:50 Lisinopril (Prinivil) 10 mg QHS PO 02/17/19 21:00 02/21/19 06:43 DC 02/20/19 20:31 Lisinopril (Prinivil) 10 mg QHS PO 02/21/19 21:00 02/21/19 08:44 DC Lisinopril (Prinivil) 20 mg QHS PO 02/21/19 21:00 02/21/19 06:46 DC Magnesium Hydroxide (Milk Of Magnesia) 30 ml DAILYPRN PRN PO CONSTIPATION 02/12/19 19:00 02/13/19 08:57 Metronidazole (Flagyl) 500 mg Q8H PO 05/01/19 14:00 05/03/19 10:32 DC 05/03/19 06:56 Miscellaneous (Unresolved Clarification Entry) SEE LABEL COMMENTS DAILY XX 04/15/19 09:00 Cancel Miscellaneous (Unresolved Clarification Entry) SEE LABEL COMMENTS DAILY XX 04/21/19 09:00 04/21/19 16:34 DC Miscellaneous (Unresolved Clarification Entry) SEE LABEL COMMENTS DAILY XX 05/17/19 09:00 05/17/19 11:43 DC Miscellaneous (Unresolved Clarification Entry) SEE LABEL COMMENTS DAILY XX 05/23/19 09:00 05/24/19 12:03 DC Miscellaneous (Unresolved Clarification Entry) SEE LABEL COMMENTS DAILY XX 05/05/19 09:00 05/05/19 11:26 DC Miscellaneous (Unresolved Clarification Entry) SEE LABEL COMMENTS DAILY XX 06/18/19 09:00 06/20/19 08:54 DC Miscellaneous (Unresolved Clarification Entry) SEE LABEL COMMENTS DAILY XX 06/25/19 09:00 06/25/19 11:30 DC Miscellaneous (Unresolved Clarification Entry) SEE LABEL COMMENTS DAILY XX 02/21/19 09:00 02/22/19 06:40 DC Miscellaneous (Unresolved Clarification Entry) SEE LABEL COMMENTS DAILY XX 02/22/19 09:00 02/22/19 12:30 DC Miscellaneous (Unresolved Clarification Entry) SEE LABEL COMMENTS DAILY XX 02/26/19 09:00 02/26/19 12:38 DC Miscellaneous (Unresolved Clarification Entry) SEE LABEL COMMENTS DAILY XX 03/15/19 09:00 03/15/19 10:31 DC Miscellaneous (Unresolved Clarification Entry) SEE LABEL COMMENTS DAILY XX 03/25/19 09:00 03/25/19 12:55 DC Nitroglycerin (Nitrobid 2%) HOLD FOR SBP<140 1 INCH Q4H TOP 02/12/19 13:00 02/13/19 09:28 DC 02/13/19 08:53 Nystatin (Mycostatin Powder, Nystop) groin BID TOP 06/10/19 09:00 06/28/19 09:28 Piperacillin Sod/ Tazobactam Sod 3.375 gm/Dextrose 50 ml @ 50 mls/hr Q6H IV 04/29/19 15:00 05/01/19 07:51 DC 05/01/19 03:19 Sodium Biphosphate/ Sodium Phosphate (Fleet Enema) 1 ea Q3DP PRN [place] CONSTIPATION 02/12/19 19:00 Sodium Chloride ([place] Nasal [place]) 2 spray Q2HP PRN NA NASAL DRYNESS 02/13/19 09:30 Sodium Chloride ([place] Nasal [place]) 2 spray TID NA 02/13/19 09:00 03/18/19 09:01 DC 03/17/19 21:33 Tamsulosin HCl (Flomax) 0.4 mg QHS PO 02/12/19 21:00 06/27/19 21:51 Trazodone HCl (Desyrel) 25 mg QHSP PRN PO INSOMNIA 02/21/19 06:45 04/23/19 01:42 Vancomycin HCl 750 mg/IV Miscellaneous Supplies 1 each/ Dextrose 275 ml @ 275 mls/hr Q12H IV 02/12/19 02:30 02/12/19 05:32 DC Vancomycin HCl 750 mg/IV Miscellaneous Supplies 1 each/ Dextrose 275 ml @ 275 mls/hr Q24H IV 04/29/19 16:00 04/30/19 12:06 DC 04/29/19 16:50 Vancomycin HCl 1000 mg/IV Miscellaneous Supplies 1 each/ Dextrose 270 ml @ 270 mls/hr Q18H IV 02/12/19 06:00 02/15/19 06:02 DC 02/14/19 11:20 Vancomycin HCl 1000 mg/IV Miscellaneous Supplies 1 each/ Dextrose 270 ml @ 270 mls/hr Q24H IV 02/15/19 12:00 02/15/19 09:27 DC Vitamin D (Vitamin D) 1,000 units QPM PO 02/12/19 21:00 06/27/19 21:51 Allergies Coded Allergies: No Known Allergies (Unverified , 12/09/18) Radha Delgado MD Jun 28, 2019 16:40
[2019-06-28] MEDS: CYANOCOBALAMIN 500 MCG TAB PO SCH (21:19)
[2019-06-28] MEDS: lisinopriL 10 MG TAB PO SCH (21:19)
[2019-06-28] MEDS: VITAMIN D 1,000 INTERNATIONAL UNITS TABLET PO SCH (21:19)
[2019-06-28] MEDS: DIVALPROEX 250MG *ER* TAB PO SCH (21:19)
[2019-06-28] MEDS: DONEPEZIL 5 MG TAB PO SCH (21:20)
[2019-06-28] MEDS: TAMSULOSIN 0.4 MG CAP PO SCH (21:20)
[2019-06-29 06:00] VITALS: BP 112/54
[2019-06-29] MEDS: ENOXAPARIN 30MG/0.3ML SYRINGE (J1650 PER 10MG) SC SCH (09:00)
[2019-06-29] MEDS: NYSTATIN 100,000 UNITS/GM TOPICAL PWD 15 GM TOP SCH ×2 (09:14→20:51)
[2019-06-29] MEDS: CETIRIZINE (ZyrTEC) 10 MG TAB PO SCH (09:14)
[2019-06-29 11:15] VITALS: BP 100/62
[2019-06-29 11:29] VITALS: BP 104/60
--- NOTE | 2019-06-29 11:46 | IPN ---
DATE OF SERVICE: 06/29/2019 The patient is seen and examined. I spoke with the and family yesterday about removing the gangrenous fourth toe. They are in agreement that it needs to be performed and they gave consent over the phone for the procedure. Spoke with , Sirisha. Amputation of fourth toe and metatarsal head was performed at bedside. Ethyl alcohol cleanse, 9 mL of 2% Lidocaine plain was injected into the right foot. Following this, the area was cleansed with Betadine solution. Using a #15 blade, the gangrenous fourth toe was disarticulated at the metatarsophalangeal joint. The metatarsal head was noted to be within wound and to be nonviable and this was removed with bone cutter. These were sent for pathology. Following this, the site was cleansed with gauze and a gauze dressing was applied. We will start cephalexin times 10 days. He will resume Hydrofera blue dressings tomorrow.
[2019-06-29] MEDS: CEPHALEXIN 500 MG CAP PO SCH ×2 (12:25→20:50)
[2019-06-29] MEDS: VITAMIN D 1,000 INTERNATIONAL UNITS TABLET PO SCH (20:50)
[2019-06-29] MEDS: TAMSULOSIN 0.4 MG CAP PO SCH (20:50)
[2019-06-29] MEDS: lisinopriL 10 MG TAB PO SCH (20:50)
[2019-06-29] MEDS: CYANOCOBALAMIN 500 MCG TAB PO SCH (20:50)
[2019-06-29] MEDS: DONEPEZIL 5 MG TAB PO SCH (20:50)
[2019-06-29] MEDS: DIVALPROEX 250MG *ER* TAB PO SCH (20:51)
[2019-06-30 06:00] VITALS: BP 106/62
[2019-06-30] MEDS: CETIRIZINE (ZyrTEC) 10 MG TAB PO SCH (09:33)
[2019-06-30] MEDS: CEPHALEXIN 500 MG CAP PO SCH ×2 (09:33→20:33)
[2019-06-30] MEDS: NYSTATIN 100,000 UNITS/GM TOPICAL PWD 15 GM TOP SCH ×2 (09:34→20:34)
[2019-06-30] MEDS: ENOXAPARIN 30MG/0.3ML SYRINGE (J1650 PER 10MG) SC SCH (09:34)
--- NOTE | 2019-06-30 10:06 | IPNPDOC ---
Subjective Date Seen The patient was seen on 06/30/19. Subjective Chief Complaint/HPI Patient had the amputation of right fourth toe done at bedside. Dr. Armstrong, and offers no new complaints at the present time General: Denies: ROS Unobtainable, Chills, Night Sweats, Fatigue, Malaise, Normal Appetite, Other Symptoms Constitutional: Denies: Chills, Fever, Malaise, Night Sweats, Weakness, Fatigue, Weight Loss, Lethargy, Other Pulmonary: Denies: Dyspnea, Cough, Pleuritic Chest Pain, Other Symptoms Cardiovascular: Denies: Chest Pain, Palpitations, Orthopnea, Paroxysmal Noc. Dyspnea, Edema, Lt Headedness, Other Symptoms Gastrointestinal: Denies: Nausea, Vomiting, Abdominal Pain, Diarrhea, Constipation, Melena, Hematochezia, Other Symptoms Musculoskeletal: Denies: Neck Pain, Back Pain, Shoulder Pain, Arm Pain, Hand Pain, Leg Pain, Foot Pain, Joint Pain, Muscle Pain, Spasms, Other Symptoms Neurological: Denies: Weakness, Numbness, Incoordination, Change in speech, Confusion, Seizures, Other Symptoms Objective Physical Examination Neck Exam: Positive: Supple Chest Exam: Positive: Clear to auscultation, Normal air movement Heart Exam: Positive: Rate Normal, Normal S1, Normal S2 Telemetry: Positive: No significant arrhythmia Abdomen Exam: Positive: Normal bowel sounds, Soft Male Exam: Positive: Normal Genital Exam Extremity Exam: Positive: Normal pulses, Other (. Dressing at the right foot noted) Skin Exam: Positive: Nl turgor and temperature Assessment /Plan Problems (1) Gangrene of toe of right foot Status: Acute Problem Text: (2) Cellulitis of fifth toe of right foot Status: Resolved Problem Text: (3) HTN (hypertension) Status: Chronic Problem Text: (4) BPH (benign prostatic hyperplasia) Status: Chronic Problem Text: (5) Dementia Status: Chronic Problem Text: Plan/VTE VTE Prophylaxis Ordered?: Yes (lovenox 30 mg daily) VTE Exclusion Mechanical Proph: N/A:VTE Prophy Ordered VTE Exclusion Pharmacological: N/A:VTE Prophy Ordered Plan 83 y/o M admitted under inpatient status for treatment of gangrene of right 5th toe s/p amputation, new right 4th toe dry gangrene, chronic dementia awaiting placement. 1. Distal dry gangrene of right 4th toe., Patient had bedside amputation of the right gangrenous fourth toe and metatarsal done by Dr. Armstrong yesterday. Patient is also s/p amputation of gangrenous right 5th toe on 05/25/19. Hx of chronic peripheral vascular disease. Dr. Murphy (podiatry) is following the patient. Further recommendations as per podiatry, dressing, as per podiatry 2. Chronic dementia. Awaiting halfway placement. Patient is currently at baseline. C/w donepezil, depokot 3. Peripheral vascular disease, chronic. Status post amputation of the right 5th toe and likely needing right 4th toe amputated as well. Outpatient angiogram suggested previously. 4. Chronic kidney disease stage III, at baseline creatinine. F/u labs. 5. Pressure ulcers in bilateral heels. Boots are in place. The patient is Pravin lift and turn every hour. Wound care. 6. Benign prostatic hypertrophy (BPH). C/w Flomax. 7. COPD. Stable, not currently on meds. 8. Hypertension. On lisinopril and controlled. 9. Insomnia. Trazodone. 10. DVT px. Enoxaparin. VS, I&O, 24H, Fishbone Vital Signs/I&O Vital Signs Date Time Temp Pulse Resp B/P (MAP) Pulse Ox O2 Delivery O2 Flow Rate FiO2 06/30/19 06:00 98.6 62 18 106/62 (77) 92 Room Air I&O- Last 24 Hours up to 6 AM 06/30/19 05:59 Intake Total 580 ml Output Total 0 ml Balance 580 ml ALVERTO EDDY MD Jun 30, 2019 10:06
[2019-06-30 13:39] LABS: HEMATOCRIT 31.7 % (42.0-52.0); HEMOGLOBIN 10.1 g/dl (13.5-17.5); MEAN CORPUSCULAR HEMOGLOBIN 31.3 pg (27.0-33.0); MEAN CORPUSCULAR HGB CONC 31.9 g/dl (32.0-36.5); MEAN CORPUSCULAR VOLUME 98.1 fl (80.0-96.0); PLATELET COUNT, AUTOMATED 360 10^3/uL (150-450); RED BLOOD COUNT 3.23 10^6/uL (4.30-6.10); WHITE BLOOD COUNT 13.1 10^3/uL (4.0-10.0)
[2019-06-30 14:02] LABS: ERYTHROCYTE SEDIMENTATION RATE 126 mm/hr (0-20)
[2019-06-30] MEDS: CYANOCOBALAMIN 500 MCG TAB PO SCH (20:33)
[2019-06-30] MEDS: DONEPEZIL 5 MG TAB PO SCH (20:33)
[2019-06-30] MEDS: TAMSULOSIN 0.4 MG CAP PO SCH (20:33)
[2019-06-30] MEDS: DIVALPROEX 250MG *ER* TAB PO SCH (20:33)
[2019-06-30] MEDS: VITAMIN D 1,000 INTERNATIONAL UNITS TABLET PO SCH (20:33)
[2019-06-30] MEDS: lisinopriL 10 MG TAB PO SCH (20:34)
[2019-06-30 22:00] VITALS: BP 161/62
[2019-07-01 06:00] VITALS: BP 137/66
[2019-07-01] MEDS: ENOXAPARIN 30MG/0.3ML SYRINGE (J1650 PER 10MG) SC SCH (09:09)
[2019-07-01] MEDS: CEPHALEXIN 500 MG CAP PO SCH ×2 (09:09→20:21)
[2019-07-01] MEDS: NYSTATIN 100,000 UNITS/GM TOPICAL PWD 15 GM TOP SCH ×2 (09:09→20:23)
[2019-07-01] MEDS: CETIRIZINE (ZyrTEC) 10 MG TAB PO SCH (09:09)
--- NOTE | 2019-07-01 09:38 | IPN ---
DATE OF SERVICE: 07/01/2019 Cristian is examined at bedside. Vitals are reviewed. He has been afebrile. Laboratories are reviewed. White blood cell count is 13.1. ESR is 126, C-reactive protein is 10.7. Lower extremity examination: Amputation site is examined. There is trace purulence within the fourth toe amputation site. No erythema noted. ASSESSMENT: 83-year-old male with gangrene, status post fourth toe amputation. PLAN: I will add Levaquin to the patient's antibiotic. Continue cephalexin. Resume Vashe dressing changes.
[2019-07-01] MEDS: LevoFLOXacin 750 MG TABLET PO SCH (10:28)
[2019-07-01] MEDS: CYANOCOBALAMIN 500 MCG TAB PO SCH (20:21)
[2019-07-01] MEDS: VITAMIN D 1,000 INTERNATIONAL UNITS TABLET PO SCH (20:21)
[2019-07-01] MEDS: DIVALPROEX 250MG *ER* TAB PO SCH (20:21)
[2019-07-01] MEDS: DONEPEZIL 5 MG TAB PO SCH (20:21)
[2019-07-01] MEDS: lisinopriL 10 MG TAB PO SCH (20:22)
[2019-07-01] MEDS: TAMSULOSIN 0.4 MG CAP PO SCH (20:22)
[2019-07-02 06:00] VITALS: BP 140/68
[2019-07-02] MEDS: NYSTATIN 100,000 UNITS/GM TOPICAL PWD 15 GM TOP SCH ×2 (08:31→20:51)
[2019-07-02] MEDS: ENOXAPARIN 30MG/0.3ML SYRINGE (J1650 PER 10MG) SC SCH (08:31)
[2019-07-02] MEDS: CEPHALEXIN 500 MG CAP PO SCH ×2 (08:32→20:51)
[2019-07-02] MEDS: CETIRIZINE (ZyrTEC) 10 MG TAB PO SCH (08:32)
[2019-07-02 10:31] LABS: BASO % 0.3 % (0.0-1.0); EOS # 0.2 10^3/uL (0.0-0.5); EOS % 1.5 % (0.0-3.0); HEMATOCRIT 31.1 % (42.0-52.0); HEMOGLOBIN 9.9 g/dl (13.5-17.5); LYMPH # 1.4 10^3/uL (1.5-5.0); LYMPH % 12.5 % (24.0-44.0); MEAN CORPUSCULAR HEMOGLOBIN 31.3 pg (27.0-33.0); MEAN CORPUSCULAR HGB CONC 31.8 g/dl (32.0-36.5); MEAN CORPUSCULAR VOLUME 98.4 fl (80.0-96.0); MONO % 8.6 % (0.0-5.0); NEUTROPHILS # 8.6 10^3/uL (1.5-8.5); NEUTROPHILS % 76.1 % (36.0-66.0); PLATELET COUNT, AUTOMATED 363 10^3/uL (150-450); RED BLOOD COUNT 3.16 10^6/uL (4.30-6.10); WHITE BLOOD COUNT 11.3 10^3/uL (4.0-10.0)
[2019-07-02] MEDS: TAMSULOSIN 0.4 MG CAP PO SCH (20:51)
[2019-07-02] MEDS: DIVALPROEX 250MG *ER* TAB PO SCH (20:51)
[2019-07-02] MEDS: VITAMIN D 1,000 INTERNATIONAL UNITS TABLET PO SCH (20:51)
[2019-07-02] MEDS: DONEPEZIL 5 MG TAB PO SCH (20:52)
[2019-07-02] MEDS: CYANOCOBALAMIN 500 MCG TAB PO SCH (20:52)
[2019-07-02] MEDS: lisinopriL 10 MG TAB PO SCH (20:57)
[2019-07-03] MEDS: LevoFLOXacin 750 MG TABLET PO SCH (05:15)
[2019-07-03 06:00] VITALS: BP 128/62
[2019-07-03] MEDS: CETIRIZINE (ZyrTEC) 10 MG TAB PO SCH (08:56)
[2019-07-03] MEDS: CEPHALEXIN 500 MG CAP PO SCH ×2 (08:56→20:17)
[2019-07-03] MEDS: ENOXAPARIN 30MG/0.3ML SYRINGE (J1650 PER 10MG) SC SCH (08:57)
[2019-07-03] MEDS: NYSTATIN 100,000 UNITS/GM TOPICAL PWD 15 GM TOP SCH ×2 (08:57→20:22)
--- NOTE | 2019-07-03 09:17 | IPN ---
DATE OF SERVICE: 07/03/2019 Patient seen and examined. Vitals are examined. White blood cell count yesterday was 11.3 and CRP was 7.22. LOWER EXTREMITY EXAMINATION: There is no erythema surrounding the wound. There is some scant purulent drainage in the distal wound. ASSESSMENT: 83-year-old male with peripheral vascular disease (PVD) and gangrene status post fourth and fifth toe amputations. PLAN: Continue current antibiotics. Continue Vashe dressing changes. Will follow.
[2019-07-03] MEDS: VITAMIN D 1,000 INTERNATIONAL UNITS TABLET PO SCH (20:20)
[2019-07-03] MEDS: CYANOCOBALAMIN 500 MCG TAB PO SCH (20:21)
[2019-07-03] MEDS: DIVALPROEX 250MG *ER* TAB PO SCH (20:21)
[2019-07-03] MEDS: DONEPEZIL 5 MG TAB PO SCH (20:21)
[2019-07-03] MEDS: lisinopriL 10 MG TAB PO SCH (20:22)
[2019-07-03] MEDS: TAMSULOSIN 0.4 MG CAP PO SCH (20:22)
[2019-07-04 06:00] VITALS: BP 122/69
[2019-07-04] MEDS: ENOXAPARIN 30MG/0.3ML SYRINGE (J1650 PER 10MG) SC SCH (10:08)
[2019-07-04] MEDS: CEPHALEXIN 500 MG CAP PO SCH ×2 (10:08→20:03)
[2019-07-04] MEDS: CETIRIZINE (ZyrTEC) 10 MG TAB PO SCH (10:08)
[2019-07-04] MEDS: NYSTATIN 100,000 UNITS/GM TOPICAL PWD 15 GM TOP SCH ×2 (10:09→20:11)
[2019-07-04] MEDS: DONEPEZIL 5 MG TAB PO SCH (20:02)
[2019-07-04] MEDS: DIVALPROEX 250MG *ER* TAB PO SCH (20:02)
[2019-07-04] MEDS: VITAMIN D 1,000 INTERNATIONAL UNITS TABLET PO SCH (20:02)
[2019-07-04] MEDS: CYANOCOBALAMIN 500 MCG TAB PO SCH (20:03)
[2019-07-04] MEDS: TAMSULOSIN 0.4 MG CAP PO SCH (20:03)
[2019-07-04] MEDS: lisinopriL 10 MG TAB PO SCH (20:13)
[2019-07-05] MEDS: LevoFLOXacin 750 MG TABLET PO SCH (05:40)
[2019-07-05 06:00] VITALS: BP 132/59
[2019-07-05 06:15] LABS: BASO % 0.4 % (0.0-1.0); EOS # 0.1 10^3/uL (0.0-0.5); EOS % 0.8 % (0.0-3.0); HEMATOCRIT 29.9 % (42.0-52.0); HEMOGLOBIN 9.7 g/dl (13.5-17.5); LYMPH # 1.3 10^3/uL (1.5-5.0); LYMPH % 12.4 % (24.0-44.0); MEAN CORPUSCULAR HEMOGLOBIN 31.4 pg (27.0-33.0); MEAN CORPUSCULAR HGB CONC 32.4 g/dl (32.0-36.5); MEAN CORPUSCULAR VOLUME 96.8 fl (80.0-96.0); MONO # 0.9 10^3/uL (0.0-0.8); MONO % 8.9 % (0.0-5.0); NEUTROPHILS # 7.9 10^3/uL (1.5-8.5); NEUTROPHILS % 76.1 % (36.0-66.0); PLATELET COUNT, AUTOMATED 332 10^3/uL (150-450); RED BLOOD COUNT 3.09 10^6/uL (4.30-6.10); WHITE BLOOD COUNT 10.3 10^3/uL (4.0-10.0)
[2019-07-05 06:32] LABS: C REACTIVE PROTEIN QUANTITATIV 7.12 MG/DL (0.00-0.30)
[2019-07-05 08:01] LABS: CALCIUM LEVEL 8.4 MG/DL (8.8-10.2); CREATININE FOR GFR 1.28 MG/DL (0.70-1.30)
[2019-07-05] MEDS: CEPHALEXIN 500 MG CAP PO SCH ×2 (08:20→20:39)
[2019-07-05] MEDS: ENOXAPARIN 30MG/0.3ML SYRINGE (J1650 PER 10MG) SC SCH (08:20)
[2019-07-05] MEDS: NYSTATIN 100,000 UNITS/GM TOPICAL PWD 15 GM TOP SCH ×2 (08:20→20:44)
[2019-07-05] MEDS: CETIRIZINE (ZyrTEC) 10 MG TAB PO SCH (08:20)
[2019-07-05] MEDS: DIVALPROEX 250MG *ER* TAB PO SCH (20:39)
[2019-07-05] MEDS: DONEPEZIL 5 MG TAB PO SCH (20:39)
[2019-07-05] MEDS: VITAMIN D 1,000 INTERNATIONAL UNITS TABLET PO SCH (20:39)
[2019-07-05] MEDS: CYANOCOBALAMIN 500 MCG TAB PO SCH (20:40)
[2019-07-05] MEDS: TAMSULOSIN 0.4 MG CAP PO SCH (20:40)
[2019-07-05] MEDS: lisinopriL 10 MG TAB PO SCH (20:44)
[2019-07-06 06:00] VITALS: BP 142/78
[2019-07-06] MEDS: NYSTATIN 100,000 UNITS/GM TOPICAL PWD 15 GM TOP SCH ×2 (09:00→20:46)
[2019-07-06] MEDS: CETIRIZINE (ZyrTEC) 10 MG TAB PO SCH (10:02)
[2019-07-06] MEDS: CEPHALEXIN 500 MG CAP PO SCH ×2 (10:02→20:45)
[2019-07-06] MEDS: ENOXAPARIN 30MG/0.3ML SYRINGE (J1650 PER 10MG) SC SCH (10:02)
--- NOTE | 2019-07-06 13:39 | IPN ---
DATE: 07/06/2019 Patient seen and examined. Lower extremity examination performed. The wound remains with some trace purulence. Otherwise the periphery has no extending erythema. There is some dry gangrene at the base of the fifth metatarsal wound. PLAN: Continue current antibiotics and dressing changes. Will follow.
--- NOTE | 2019-07-06 19:29 | IPNPDOC ---
Date Seen The patient was seen on 07/06/19. Progress Note SUBJECTIVE: Some purulence seen at base of 4th toe where amputated, dry gangrene near amputated site of 5th digit also seen. Podiatry following. No acute complaints by patient, no acute events. OBJECTIVE: VITAL SIGNS: Please see below PHYSICAL EXAMINATION: CONSTITUTIONAL: Resting in bed, AAO x 1 EYES: PERRLA, EOM intact HENT, MOUTH: Normocephalic, atraumatic, moist mucous membranes NECK: SUPPLE, no JVD, no lymphadenopathy, no carotid bruit CV: Regular rate and rhythm, S1S2 normal, no murmurs/rubs/gallops RESPIRATORY: Clear to auscultation bilaterally, no rales/rhonchi/wheezes GI: BS positive in 4 quadrants, soft, nontender, nondistended, no rebound or guarding, no organomegaly : Deferred MUSCULOSKELETAL: Right fifth toe amputated. right 4th toe amputated also with some mild purulence, no fouls smell. Some area of gangrene around amputated area of fifth toe. Contracted lower ext bilaterally. No cyanosis, clubbing, swelling, joint deformity, extremity edema INTEGUMENTARY: Intact, no rashes, no lesions, no erythema NEUROLOGIC: Cranial Nerves II-XII are intact, no focal deficits CURRENT MEDICATIONS: Please see below LABORATORY DATA: Please see below IMAGING: No new imaging. ASSESSMENT: 83 y/o M admitted under inpatient status for treatment of gangrene of right 4th, 5th toe s/p amputation, chronic dementia awaiting placement. PLAN: 1. Distal dry gangrene of right 4th,5th toe s/p amputation of right 4th, 5th toe. Hx of chronic peripheral vascular disease. Dr. Murphy (podiatry) following, c/w wound care. 2. Chronic dementia. Awaiting [facility] placement. Patient is currently at baseline. C/w donepezil, depakote. 3. Peripheral vascular disease, chronic. Status post amputation of the right 4th, 5th toes . Outpatient angiogram suggested previously. 4. Chronic kidney disease stage III, at baseline creatinine. F/u labs. 5. Pressure ulcers in bilateral heels. Boots are in place. The patient is Pravin lift and turn every hour. Wound care. 6. Benign prostatic hypertrophy (BPH). C/w Flomax. 7. COPD. Stable, not currently on meds. 8. Hypertension. On lisinopril and controlled. 9. Insomnia. Trazodone. 10. DVT px. Enoxaparin. DISPOSITION: Patient has been awaiting placement for some time now. Awaiting processing of Medicaid application . VS, I&O, 24H, Fishbone Vital Signs/I&O Vital Signs Date Time Temp Pulse Resp B/P (MAP) Pulse Ox O2 Delivery O2 Flow Rate FiO2 07/06/19 06:00 97.5 64 19 142/78 (99) 96 Room Air I&O- Last 24 Hours up to 6 AM 07/06/19 06:00 Intake Total 1080 ml Output Total 50 ml Balance 1030 ml Radha Delgado MD Jul 06, 2019 19:29
[2019-07-06] MEDS: DONEPEZIL 5 MG TAB PO SCH (20:44)
[2019-07-06] MEDS: TAMSULOSIN 0.4 MG CAP PO SCH (20:45)
[2019-07-06] MEDS: lisinopriL 10 MG TAB PO SCH (20:45)
[2019-07-06] MEDS: DIVALPROEX 250MG *ER* TAB PO SCH (20:45)
[2019-07-06] MEDS: VITAMIN D 1,000 INTERNATIONAL UNITS TABLET PO SCH (20:45)
[2019-07-06] MEDS: CYANOCOBALAMIN 500 MCG TAB PO SCH (20:46)
[2019-07-06 22:00] VITALS: BP 152/63
[2019-07-07] MEDS: LevoFLOXacin 750 MG TABLET PO SCH (05:51)
[2019-07-07 06:00] VITALS: BP 147/66
[2019-07-07 07:43] LABS: BASO % 0.4 % (0.0-1.0); EOS # 0.2 10^3/uL (0.0-0.5); EOS % 1.8 % (0.0-3.0); HEMATOCRIT 31.3 % (42.0-52.0); HEMOGLOBIN 9.9 g/dl (13.5-17.5); LYMPH # 1.3 10^3/uL (1.5-5.0); LYMPH % 12.4 % (24.0-44.0); MEAN CORPUSCULAR HEMOGLOBIN 30.7 pg (27.0-33.0); MEAN CORPUSCULAR HGB CONC 31.6 g/dl (32.0-36.5); MEAN CORPUSCULAR VOLUME 97.2 fl (80.0-96.0); MONO # 1.1 10^3/uL (0.0-0.8); MONO % 10.4 % (0.0-5.0); NEUTROPHILS # 7.7 10^3/uL (1.5-8.5); NEUTROPHILS % 73.6 % (36.0-66.0); PLATELET COUNT, AUTOMATED 356 10^3/uL (150-450); RED BLOOD COUNT 3.22 10^6/uL (4.30-6.10); WHITE BLOOD COUNT 10.5 10^3/uL (4.0-10.0)
[2019-07-07 08:14] LABS: ALBUMIN 1.8 GM/DL (3.2-5.2); BILIRUBIN,TOTAL 0.3 MG/DL (0.2-1.0); C REACTIVE PROTEIN QUANTITATIV 9.19 MG/DL (0.00-0.30); CALCIUM LEVEL 8.5 MG/DL (8.8-10.2); CREATININE FOR GFR 1.23 MG/DL (0.70-1.30); GLOMERULAR FILTRATION RATE 59.7 (>35); POTASSIUM SERUM 4.1 MEQ/L (3.5-5.1); TOTAL PROTEIN 6.6 GM/DL (6.4-8.2)
[2019-07-07] MEDS: CETIRIZINE (ZyrTEC) 10 MG TAB PO SCH (09:28)
[2019-07-07] MEDS: CEPHALEXIN 500 MG CAP PO SCH ×2 (09:28→20:39)
[2019-07-07] MEDS: ENOXAPARIN 30MG/0.3ML SYRINGE (J1650 PER 10MG) SC SCH (09:28)
[2019-07-07] MEDS: NYSTATIN 100,000 UNITS/GM TOPICAL PWD 15 GM TOP SCH ×2 (09:29→20:40)
[2019-07-07] MEDS: VITAMIN D 1,000 INTERNATIONAL UNITS TABLET PO SCH (20:39)
[2019-07-07] MEDS: DONEPEZIL 5 MG TAB PO SCH (20:39)
[2019-07-07] MEDS: lisinopriL 10 MG TAB PO SCH (20:39)
[2019-07-07] MEDS: DIVALPROEX 250MG *ER* TAB PO SCH (20:39)
[2019-07-07] MEDS: CYANOCOBALAMIN 500 MCG TAB PO SCH (20:39)
[2019-07-07] MEDS: TAMSULOSIN 0.4 MG CAP PO SCH (20:39)
[2019-07-08 06:00] VITALS: BP 133/71
[2019-07-08] MEDS: NYSTATIN 100,000 UNITS/GM TOPICAL PWD 15 GM TOP SCH ×2 (09:50→21:43)
[2019-07-08] MEDS: CETIRIZINE (ZyrTEC) 10 MG TAB PO SCH (09:50)
[2019-07-08] MEDS: ENOXAPARIN 30MG/0.3ML SYRINGE (J1650 PER 10MG) SC SCH (09:50)
[2019-07-08] MEDS: DIVALPROEX 250MG *ER* TAB PO SCH (21:30)
[2019-07-08] MEDS: VITAMIN D 1,000 INTERNATIONAL UNITS TABLET PO SCH (21:30)
[2019-07-08] MEDS: CYANOCOBALAMIN 500 MCG TAB PO SCH (21:30)
[2019-07-08] MEDS: TAMSULOSIN 0.4 MG CAP PO SCH (21:30)
[2019-07-08] MEDS: DONEPEZIL 5 MG TAB PO SCH (21:30)
[2019-07-08] MEDS: lisinopriL 10 MG TAB PO SCH (21:36)
[2019-07-09 06:00] VITALS: BP 80/50
[2019-07-09] MEDS ORDERED: NS 1,000 ML IV ONE (06:00)
[2019-07-09] MEDS: LevoFLOXacin 750 MG TABLET PO SCH ×2 (06:00→10:07)
[2019-07-09 06:17] LABS: HEMATOCRIT 28.9 % (42.0-52.0); HEMOGLOBIN 9.3 g/dl (13.5-17.5); MEAN CORPUSCULAR HEMOGLOBIN 31.1 pg (27.0-33.0); MEAN CORPUSCULAR HGB CONC 32.2 g/dl (32.0-36.5); MEAN CORPUSCULAR VOLUME 96.7 fl (80.0-96.0); PLATELET COUNT, AUTOMATED 390 10^3/uL (150-450); RED BLOOD COUNT 2.99 10^6/uL (4.30-6.10); WHITE BLOOD COUNT 12.6 10^3/uL (4.0-10.0)
[2019-07-09 06:29] LABS: ABG BASE EXCESS 2.5 (-2.0-2.0); ABG HCO3 26.3 MEQ/L (22.0-26.0); ABG O2 SATURATION 93.9 % (95.0-99.0); ABG PARTIAL PRESSURE CO2 37.6 mmHg (35.0-45.0); ABG PARTIAL PRESSURE O2 71.1 mmHg (75.0-100.0); ABG STANDARD HCO3 26.6 MEQ/L (22.0-26.0); ABG TOTAL CO2 27.5 MEQ/L (23.0-31.0); ABG pH (ARTERIAL) 7.463 UNITS (7.350-7.450)
[2019-07-09 06:57] LABS: CALCIUM LEVEL 8.8 MG/DL (8.8-10.2); CREATININE FOR GFR 1.72 MG/DL (0.70-1.30); GLOMERULAR FILTRATION RATE 40.5 (>35); POTASSIUM SERUM 4.1 MEQ/L (3.5-5.1)
[2019-07-09 07:00] VITALS: BP 105/50
[2019-07-09 07:35] LABS: C REACTIVE PROTEIN QUANTITATIV 7.82 MG/DL (0.00-0.30)
[2019-07-09 08:02] LABS: ERYTHROCYTE SEDIMENTATION RATE 128 mm/hr (0-20)
[2019-07-09 08:47] VITALS: BP 106/43
[2019-07-09 09:28] LABS: BASO # 0.1 10^3/uL (0.0-0.2); BASO % 0.4 % (0.0-1.0); EOS # 0.1 10^3/uL (0.0-0.5); EOS % 1.2 % (0.0-3.0); HEMOGLOBIN 9.4 g/dl (13.5-17.5); LYMPH # 1.5 10^3/uL (1.5-5.0); LYMPH % 13.3 % (24.0-44.0); MEAN CORPUSCULAR HEMOGLOBIN 31.6 pg (27.0-33.0); MEAN CORPUSCULAR HGB CONC 32.4 g/dl (32.0-36.5); MEAN CORPUSCULAR VOLUME 97.6 fl (80.0-96.0); MONO % 8.8 % (0.0-5.0); NEUTROPHILS # 8.5 10^3/uL (1.5-8.5); PLATELET COUNT, AUTOMATED 373 10^3/uL (150-450); RED BLOOD COUNT 2.97 10^6/uL (4.30-6.10); WHITE BLOOD COUNT 11.3 10^3/uL (4.0-10.0)
[2019-07-09] MEDS: NS 1,000 ML IV SCH ×2 (09:58→19:05)
[2019-07-09] MEDS: ENOXAPARIN 30MG/0.3ML SYRINGE (J1650 PER 10MG) SC SCH (10:06)
[2019-07-09] MEDS: NYSTATIN 100,000 UNITS/GM TOPICAL PWD 15 GM TOP SCH ×2 (10:07→22:04)
[2019-07-09] MEDS: CETIRIZINE (ZyrTEC) 10 MG TAB PO SCH (10:07)
[2019-07-09 10:20] LABS: ALBUMIN 1.8 GM/DL (3.2-5.2); BILIRUBIN,TOTAL 0.3 MG/DL (0.2-1.0); CALCIUM LEVEL 8.5 MG/DL (8.8-10.2); CREATININE FOR GFR 1.52 MG/DL (0.70-1.30); GLOMERULAR FILTRATION RATE 46.7 (>35); POTASSIUM SERUM 4.1 MEQ/L (3.5-5.1); TOTAL PROTEIN 6.4 GM/DL (6.4-8.2)
--- NOTE | 2019-07-09 10:20 | REP ---
REASON: Followup History of gangrene. Patient is status post amputation of the lateral aspect of the foot. COMPARISON: 12/10/2018 a preoperative exam. The distal aspects of the foot and 5th metatarsals have been surgically excised along with corresponding soft tissue. Abnormal air density is seen in the head of the 3rd metatarsal, the cortex is which is markedly irregular with areas of lysis. There is lysis also seen involving the base of the proximal phalanx of the third digit. Significant decreased bony density is seen in the head of the 2nd metatarsal. These findings represent a change from the prior exam. There is extensive soft tissue swelling. There are unchanged chronic changes seen involving the remainder of the imaged portion of the foot and ankle. IMPRESSION: 1. Status post amputation as described above. 2. Evidence of a gas-producing organism as described above with new areas of bony destruction also as described above consistent with the patient's history of gangrene and osteomyelitis. For further information, followup with MRI. ? Electronically Signed by Joel Kelly DO 07/09/2019 11:36 A
--- NOTE | 2019-07-09 11:53 | IPN ---
DATE: 07/09/2019 Patient seen and examined. Overnight no events noted. He was noted to be hypotensive overnight with some elevation in his white blood cell count. It was 12.6 early this morning, is 11.3 now. Erythrocyte sedimentation rate (ESR) is 128 and his creatinine is 1.52. A CT study was performed, which shows some suggestion of gas producing organism and bony destruction of the third metatarsal head. LOWER EXTREMITY EXAMINATION: The is some erythema surrounding the wound with some trace purulence again in the wound. The metatarsal head is exposed. ASSESSMENT: 83-year-old male with peripheral vascular disease with osteomyelitis. PLAN: Wound debridement was performed. A wound culture was taken. He is to be started on IV antibiotics. Will likely require a little further wound debridement and most likely remove all the metatarsal head, which could be performed at bedside. Will discuss with patient's after results are in and before doing procedure.
[2019-07-09 12:08] LABS: AMORPHOUS SEDIMENT SMALL (NEGATIVE); APPEARANCE, URINE CLEAR (CLEAR); BACTERIA, URINE AUTO NEGATIVE (NEGATIVE); BILIRUBIN, URINE AUTO NEGATIVE (NEGATIVE); BLOOD, URINE BLOOD NEGATIVE (NEGATIVE); COLOR, URINE YELLOW (YELLOW); GLUCOSE, URINE (UA) AUTO NEGATIVE (NEGATIVE); KETONE, URINE AUTO TRACE mg/dL (NEGATIVE); LEUKOCYTE ESTERASE, URINE AUTO NEGATIVE (NEGATIVE); NITRITE, URINE AUTO NEGATIVE (NEGATIVE); PROTEIN, URINE AUTO NEGATIVE (NEGATIVE); RBC, URINE AUTO 14 /HPF (0-3); SPECIFIC GRAVITY URINE AUTO 1.024 (1.002-1.035); SQUAMOUS EPITHELIAL CELL UR AU 0 /HPF (0-6); UROBILINOGEN, URINE AUTO 0.2 mg/dL (0.0-2.0); WBC, URINE AUTO 1 /HPF (0-3)
[2019-07-09 14:00] VITALS: BP 113/53
[2019-07-09] MEDS ORDERED: PIPERACILLIN/TAZOBACTAM SOD 3.375 GM in D5W MINI-BAG PLUS 50 ML IV SCH (14:00)
[2019-07-09] MEDS: PIPERACILLIN/TAZOBACTAM SOD 2.25 GM in D5W MINI-BAG PLUS 50 ML IV SCH ×2 (14:27→20:45)
--- NOTE | 2019-07-09 14:45 | CR ---
DATE OF CONSULTATION: 07/09/2019 We were asked to see Cristian Gomez today for a nonhealing wound on the right foot with recurring osteomyelitis. HISTORY OF PRESENT ILLNESS: Cristian presented to the hospital on 02/12/2019 as a transfer from [facility] for assessment of right 2nd and 5th toe dried gangrene. He has a history of dementia and is a poor historian, so much of the history is obtained from the chart. He had a prior admission on 12/10/2018 for a gangrenous wound on the right foot. During that admission, his family opted against any surgical intervention. He did receive antibiotics and was discharged to a subacute rehabilitation center. During his current admission, he was initially started on Unasyn and vancomycin for empiric antibiotic coverage. He was assessed by Dr. Murphy, who suggested toe amputation. He was also assessed by Dr. Jolly of vascular surgery, who suggested revascularization procedure. The family opted against any vascular or surgical interventions. At that point, he was continued on Augmentin for antibiotic coverage and was pending placement for discharge. His stay was complicated by dysphagia with aspiration pneumonia. He also had worsening of his toe infections. His family reconsidered surgery multiple times and on 05/25/2019, they did agree to amputation of the right 4th and 5th toes and the tarsal heads. At that point, he had received multiple rounds of antibiotics for both the toe infections and the aspiration pneumonia. He received azithromycin and Unasyn, which was switched to Augmentin. He then received Zosyn and vancomycin, which was de-escalated to Augmentin and Flagyl. After surgical procedure, he was started on Keflex. Levaquin was also added to this regimen. He had been off antibiotics for a couple of weeks when he was restarted on Keflex and Levaquin. He has had wound cultures, the first being on 05/01/2019, which grew Enterococcus faecalis and corynebacterium. The second culture on 05/25/2019, during his surgical procedure by Dr. Murphy, grew Enterococcus faecalis and Enterobacter cloacae complex. Today, the patient does note pain in the right foot. REVIEW OF SYSTEMS: Unable to obtain due to the patient's dementia. PAST MEDICAL HISTORY: 1. Chronic obstructive pulmonary disease (COPD). 2. Dementia. 3. Peripheral vascular disease. PAST SURGICAL HISTORY: Unknown. SOCIAL HISTORY: Unable to obtain smoking history. Was previously discharged to a subacute rehab after his last admission, and it is unclear if he was discharged home, admitted to a longterm, or returned from subacute rehab. He has a and children who are involved with his care. His is the healthcare proxy. He and his are farmers. FAMILY HISTORY: Patient unable to provide family medical history. ALLERGIES: NO KNOWN ALLERGIES. HOME MEDICATIONS: - vitamin D - vitamin B12 - divalproex sodium ER - benazepril HCl - tamsulosin PHYSICAL EXAMINATION: VITAL SIGNS: Temperature 98.0, heart rate 64, respiratory rate 14, blood pressure 106/43 with a mean arterial pressure (MAP) of 64, oxygen saturation 94% on room air. GENERAL: The patient is lying in bed, appears thin, is alert and oriented only to person, in no acute distress. HEENT: Normocephalic, atraumatic, pupils equal and reactive to light and accommodation (AMBROSIO), sclerae anicteric, moist mucous membranes. NECK: Supple, no lymphadenopathy. LUNGS: Clear to auscultation bilaterally, no wheezing, rhonchi or rales. CARDIOVASCULAR: Regular rate and rhythm, normal S1 and S2, no murmurs, rubs, or gallops. ABDOMEN: Soft, nontender, nondistended. Bowel sounds present. EXTREMITIES: Right 5th and 4th toes amputated with open wound and an area of gangrenous tissue. The wound is foul smelling. There is some trace purulence in the wound. The metatarsal head is exposed. NEUROLOGIC: No focal deficits appreciated. LABORATORY DATA: White blood cell count 11.3, hemoglobin 9.4, hematocrit 29.0, platelet count 373. ESR 128. Sodium 145, potassium 4.1, chloride 111, carbon dioxide 29, BUN 44, creatinine 1.52, glucose 85, lactic acid 1.8, CRP 7.82. MRSA screen on 02/12/2019 and 05/27/2019 are both negative. MICROBIOLOGY: Wound culture from 05/01/2019 grew Enterococcus faecalis. Wound culture from 05/25/2019 grew Enterococcus faecalis and enterobacter cloacae complex. Two blood cultures drawn today pending. One wound culture done today pending. IMAGING: Foot CT on 07/09/2019 read as status post amputation as described above. Evidence of gas-producing organism as described above with new areas of bony destruction consistent with the patient's history of gangrene and osteomyelitis. Abnormal air density seen in the head of 3rd metatarsal the cortex of which is markedly irregular with areas of lysis. There is lysis also seen involving the base of the proximal phalanx of the 3rd digit. Significant decreased bony density is seen in the head of the 2nd metatarsal. IMPRESSION/PLAN: 1. 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 We will start empiric antibiotics with IV Zosyn, which can be de-escalated based on wound culture results. Discussed the case with Dr. Murphy, who agrees that surgical intervention may be more helpful than antibiotics. It is unclear if the family will be agreeable to this, as they have avoided surgical intervention previously. 2. Significant peripheral vascular disease. He would likely benefit from vascular intervention if the family is agreeable to this. This would aid in his wound healing, especially if further amputation is performed.
--- NOTE | 2019-07-09 21:06 | IPNPDOC ---
Date Seen The patient was seen on 07/09/19. Progress Note SUBJECTIVE: The patient received a small bolus of fluid pot room tapper for 01/18/2020 for low blood pressure. The patient was noted to be lethargic and his right lower extremity was in to be increasingly swollen. CT of the right lower extremity with contrast was concerned for continued gangrenous infection with bony destruction. Labs revealed acute kidney injury, slightly elevated white count at 12.6. IVFs started and patient seemed to respond well. Podiatry was notified and assessed the patient. It was decided that a third of dictation would take place removing the third digit on the right lower extremity. Wound debridement and culture sent today. Amputation should take place 07/10/19. Will touch base with in 07/10/19 to discuss plans going forward and vascular workup. Infectious disease was consulted and the patient was started on Zosyn. Levofloxacin was stopped. The patient appeared uncomfortable during examination. OBJECTIVE: VITAL SIGNS: Please see below PHYSICAL EXAMINATION: CONSTITUTIONAL: Resting in bed, lethargic EYES: PERRLA, EOM intact HENT, MOUTH: Normocephalic, atraumatic, moist mucous membranes NECK: SUPPLE, no JVD, no lymphadenopathy, no carotid bruit CV: Regular rate and rhythm, S1S2 normal, no murmurs/rubs/gallops RESPIRATORY: Clear to auscultation bilaterally, no rales/rhonchi/wheezes GI: BS positive in 4 quadrants, soft, nontender, nondistended, no rebound or guarding, no organomegaly : Deferred MUSCULOSKELETAL: erythema surrounding the wound where 4th digit amputation occured with trace purulence in the wound. Area is open and metatarsal head exposed. Some area of gangrene around amputated area of fifth toe. Contracted lower ext bilaterally. No cyanosis, clubbing, swelling, joint deformity, extremity edema INTEGUMENTARY: Intact, no rashes, no lesions, no erythema NEUROLOGIC: Cranial Nerves II-XII are intact, no focal deficits CURRENT MEDICATIONS: Please see below LABORATORY DATA: Please see below IMAGING: CT RLE without contrast: 1. Status post amputation. 2. Evidence of a gas- producing organism with new areas of bony destruction also as described above consistent with the patient's history of gangrene and osteomyelitis. For further information, followup with MRI. ASSESSMENT: 83 y/o M admitted under inpatient status for treatment of hypotension, acute kidney injury, gangrene of right 4th, 5th toe s/p amputation, chronic dementia awaiting placement. PLAN: 1. Hypotension likely due to dehydration. Stopped AceI. Improving with IVFs. C/w NS at 100 cc/hr. 2. Acute kidney injury 2/2 to dehydration, poor PO intake. Cr 1.72. C/w IVFs, f/u AM labs. Avoid nephrotoxic meds, stopped ACEi. 3. 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 ID started on IV zosyn, f/u wound culture results. Podiatry, ID and myself agree surgical intervention may be more helpful than antibiotics. Amputation to take place in AM. 4. Peripheral vascular disease. He would likely benefit from vascular intervention; however, how aggressive they would be if results involved surgery (given risk with age, etc) is not known. Will discuss with his 07/10/19 and see if they would like to pursue angiogram. Better perfused extremity will heal better but it is unknown at this time if patient would be candidate for intervention. 5. Chronic dementia. Has been awaiting snf placement. Patient is currently at baseline. C/w donepezil, depakote. 6. Peripheral vascular disease, chronic. Status post amputation of the right 4th, 5th toes . Outpatient angiogram suggested previously. 7. Chronic kidney disease stage III, at baseline creatinine. F/u labs. 8. Pressure ulcers in bilateral heels. Boots are in place. The patient is Pravin lift and turn every hour. Wound care. 9. Benign prostatic hypertrophy (BPH). C/w Flomax. 10. COPD. Stable, not currently on meds. 11. Hypertension. On lisinopril and controlled. 12. Insomnia. Trazodone. 13. DVT px. Enoxaparin. DISPOSITION: Patient was switched to acute inpatient status. Plan is placement to NH/SNF when Medicaid application is processed . VS, I&O, 24H, Fishbone Vital Signs/I&O Vital Signs Date Time Temp Pulse Resp B/P (MAP) Pulse Ox O2 Delivery O2 Flow Rate FiO2 07/09/19 14:00 98.1 49 19 113/53 (73) 94 Room Air I&O- Last 24 Hours up to 6 AM 07/09/19 06:00 Intake Total 780 ml Output Total 0 ml Balance 780 ml Laboratory Data 24H LABS Laboratory Tests 2 07/09/19 06:01: Nucleated Red Blood Cells % (auto) 0.0, Erythrocyte Sedimentation Rate 128H, Bedside Glucose (Misc Panel) 82L, Anion Gap 5L, Glomerular Filtration Rate 40.5, Lactic Acid Level 1.8, Calcium Level 8.8, C-Reactive Protein, Quantitative 7.82H 07/09/19 06:10: Blood Gas Bicarbonate Standard 26.6H, Arterial Blood pH 7.463H, Arterial Blood Partial Pressure CO2 37.6, Arterial Blood Partial Pressure O2 71.1L, Arterial Blood Total CO2 27.5, Arterial Blood HCO3 26.3H, Arterial Blood Base Excess 2.5H, Arterial Blood Oxygen Saturation 93.9L 07/09/19 09:15: Nucleated Red Blood Cells % (auto) 0.0, Anion Gap 5L, Glomerular Filtration Rate 46.7, Calcium Level 8.5L, Immature Granulocyte % (Auto) 1.3, Neutrophils (%) (Au to) 75.0H, Lymphocytes (%) (Auto) 13.3L, Monocytes (%) (Auto) 8.8H, Eosinophils (%) (Auto) 1.2, Basophils (%) (Auto) 0.4, Neutrophils # (Auto) 8.5, Lymphocytes # (Auto) 1.5, Monocytes # (Auto) 1.0H, Eosinophils # (Auto) 0.1, Basophils # (Auto) 0.1, Total Bilirubin 0.3, Aspartate Amino Transf (AST/SGOT) 13, Alanine Aminotransferase (ALT/SGPT) 9L, Alkaline Phosphatase 56, Total Protein 6.4, Albumin 1.8L, Albumin/Globulin Ratio 0.39L 07/09/19 11:47: Urine Color YELLOW, Urine Appearance CLEAR, Urine pH 5.0, Urine Specific [place] 1.024, Urine Protein NEGATIVE, Urine Glucose (Auto)(UA) NEGATIVE, Urine Ketones (Auto) TRACEH, Urine Blood NEGATIVE, Urine Nitrite NEGATIVE, Urine Bilirubin NEGATIVE, Urine Urobilinogen 0.2, Urine Leukocyte Esterase (Auto) NEGATIVE, Urine WBC (Auto) 1, Urine RBC (Auto) 14H, Urine Hyaline Casts (Auto) 0, Urine Bacteria (Auto) NEGATIVE, Urine Squamous Epithelial Cells 0, Urine Amorphous Sediment (Auto) SMALLH, Urine Sperm (Auto) CBC/BMP Laboratory Tests 07/09/19 06:01 07/09/19 09:15 Microbiology Microbiology 07/09/19 Wound Culture, Received Pending 07/09/19 Blood Culture, Received Pending 07/09/19 Blood Culture, Received Pending Current Medications Current Medications Medications (Trade) Dose Ordered Sig/Hubert Route PRN Reason Start Time Stop Time Status Last Admin Dose Admin Acetaminophen (Tylenol Tab) 650 mg Q4H PRN PO PAIN OR FEVER 02/12/19 02:30 06/16/19 10:09 Amlodipine Besylate (Norvasc) 5 mg BID PO 02/21/19 09:00 02/21/19 08:44 DC Amlodipine Besylate (Norvasc) 5 mg DAILY PO 05/10/19 09:00 05/10/19 09:32 DC Amlodipine Besylate (Norvasc) 5 mg QHS PO 04/20/19 21:00 04/29/19 14:56 DC 04/28/19 20:47 Amlodipine Besylate (Norvasc) 10 mg DAILY PO 05/03/19 09:00 05/09/19 09:24 DC 05/07/19 08:07 Amlodipine Besylate (Norvasc) 10 mg DAILY PO 02/12/19 09:00 02/13/19 09:42 DC 02/13/19 08:52 Amlodipine Besylate (Norvasc) 10 mg DAILY PO 02/13/19 09:00 02/13/19 09:45 DC Amlodipine Besylate (Norvasc) 10 mg DAILY PO 02/14/19 09:00 02/21/19 06:46 DC 02/19/19 08:33 Amlodipine Besylate (Norvasc) 10 mg QHS PO 02/21/19 21:00 04/20/19 15:21 DC 04/19/19 20:12 Amoxicillin/ Clavulanate Potassium (Augmentin) 500 mg BID PO 05/01/19 10:00 05/09/19 07:52 DC 05/08/19 19:47 Amoxicillin/ Clavulanate Potassium (Augmentin) 500 mg BID PO 03/07/19 21:00 03/12/19 10:33 DC 03/12/19 09:04 Amoxicillin/ Clavulanate Potassium (Augmentin) 875 mg BID PO 05/01/19 21:00 UNV Amoxicillin/ Clavulanate Potassium (Augmentin) 875 mg BID PO 02/15/19 09:00 02/22/19 08:59 DC 02/21/19 20:29 Ampicillin Sodium/ Sulbactam Sodium 1.5 gm/Dextrose 50 ml @ 100 mls/hr Q6H IV 02/12/19 05:00 02/15/19 09:27 DC 02/15/19 05:19 Ampicillin Sodium/ Sulbactam Sodium 3 gm/Dextrose 100 ml @ 200 mls/hr Q12H IV 03/06/19 23:00 03/07/19 17:17 DC 03/07/19 11:39 Atenolol (Tenormin) 12.5 mg BID PO 02/13/19 09:00 02/15/19 14:32 DC 02/14/19 20:57 Azithromycin (Zithromax Tab) 500 mg DAILY PO 03/07/19 09:00 03/13/19 14:18 DC 03/13/19 10:03 Azithromycin 500 mg/IV Miscellaneous Supplies 1 each/ Dextrose 255 ml @ 255 mls/hr Q24H IV 03/06/19 00:00 03/07/19 17:17 DC 03/07/19 00:44 Bisacodyl (Dulcolax Suppository) 10 mg Q2DP PRN MT CONSTIPATION 02/12/19 18:45 02/13/19 14:23 Cephalexin Monohydrate (Keflex) 500 mg BID PO 05/25/19 09:00 06/07/19 23:59 DC 06/07/19 21:47 Cephalexin Monohydrate (Keflex) 500 mg Q12H PO 06/29/19 09:00 07/08/19 08:59 DC 07/07/19 20:39 Cetirizine HCl (ZyrTEC) 10 mg DAILY PO 02/14/19 09:00 07/09/19 10:07 Cyanocobalamin (Vitamin B12) 500 mcg QHS PO 02/12/19 21:00 07/08/19 21:30 Dextrose/Lactated Ringer's 1,000 ml @ 40 mls/hr Q24H IV 02/12/19 02:30 02/12/19 17:11 DC 02/12/19 03:12 Divalproex Sodium (Depakote Er) 500 mg QHS PO 02/12/19 21:00 07/08/19 21:30 Docusate Sodium (Colace) 100 mg Q12HP PRN PO CONSTIPATION 05/03/19 11:45 Donepezil HCl (AriCEPT) 10 mg QHS PO 02/12/19 21:00 07/08/19 21:30 Enoxaparin Sodium (Lovenox) 30 mg DAILY SC 02/15/19 09:00 07/09/19 10:06 Home Med (Med Rec Complete!) ASDIRECTED XX 02/12/19 04:00 02/12/19 04:05 DC Hydralazine HCl (Apresoline) 10 mg Q4H IV 02/12/19 14:00 02/13/19 07:26 DC 02/13/19 05:23 Hydralazine HCl (Apresoline) 20 mg Q6H PO 02/12/19 12:00 02/12/19 13:20 DC Hydralazine HCl (Apresoline) 25 mg QID PO 02/13/19 09:00 02/17/19 12:49 DC 02/17/19 11:08 Isosorbide Dinitrate (Isordil) 20 mg Q6H PO 02/13/19 18:00 02/17/19 12:49 DC 02/17/19 11:06 Labetalol HCl (Normodyne, Trandate) 2 mg Q6HP PRN IV BP > 160/100 02/12/19 03:45 02/12/19 12:21 DC Lactated Ringer's 1,000 ml @ 75 mls/hr [id number] IV 04/28/19 08:15 04/29/19 08:06 DC 04/28/19 20:48 Lactated Ringer's 1,000 ml @ 75 mls/hr [id number] IV 04/29/19 14:30 05/01/19 07:51 DC 04/30/19 19:00 Levofloxacin (Levaquin) 250 mg Q24H PO 05/30/19 22:00 06/12/19 23:59 DC 06/12/19 21:39 Levofloxacin (Levaquin) 750 mg Q48H PO 07/01/19 06:00 07/09/19 10:00 DC 07/09/19 10:07 Lisinopril (Prinivil) 5 mg QHS PO 02/21/19 21:00 04/29/19 14:56 DC 04/28/19 20:46 Lisinopril (Prinivil) 10 mg DAILY PO 05/03/19 09:00 05/09/19 09:24 DC 05/07/19 08:07 Lisinopril (Prinivil) 10 mg QHS PO 05/09/19 21:00 07/09/19 09:01 DC 07/08/19 21:36 Lisinopril (Prinivil) 10 mg QHS PO 02/17/19 21:00 02/21/19 06:43 DC 02/20/19 20:31 Lisinopril (Prinivil) 10 mg QHS PO 02/21/19 21:00 02/21/19 08:44 DC Lisinopril (Prinivil) 20 mg QHS PO 02/21/19 21:00 02/21/19 06:46 DC Magnesium Hydroxide (Milk Of Magnesia) 30 ml DAILYPRN PRN PO CONSTIPATION 02/12/19 19:00 02/13/19 08:57 Metronidazole (Flagyl) 500 mg Q8H PO 05/01/19 14:00 05/03/19 10:32 DC 05/03/19 06:56 Miscellaneous (Unresolved Clarification Entry) SEE LABEL COMMENTS DAILY XX 04/15/19 09:00 Cancel Miscellaneous (Unresolved Clarification Entry) SEE LABEL COMMENTS DAILY XX 04/21/19 09:00 04/21/19 16:34 DC Miscellaneous (Unresolved Clarification Entry) SEE LABEL COMMENTS DAILY XX 05/17/19 09:00 05/17/19 11:43 DC Miscellaneous (Unresolved Clarification Entry) SEE LABEL COMMENTS DAILY XX 05/23/19 09:00 05/24/19 12:03 DC Miscellaneous (Unresolved Clarification Entry) SEE LABEL COMMENTS DAILY XX 05/05/19 09:00 05/05/19 11:26 DC Miscellaneous (Unresolved Clarification Entry) SEE LABEL COMMENTS DAILY XX 06/18/19 09:00 06/20/19 08:54 DC Miscellaneous (Unresolved Clarification Entry) SEE LABEL COMMENTS DAILY XX 06/25/19 09:00 06/25/19 11:30 DC Miscellaneous (Unresolved Clarification Entry) SEE LABEL COMMENTS DAILY XX 02/21/19 09:00 02/22/19 06:40 DC Miscellaneous (Unresolved Clarification Entry) SEE LABEL COMMENTS DAILY XX 02/22/19 09:00 02/22/19 12:30 DC Miscellaneous (Unresolved Clarification Entry) SEE LABEL COMMENTS DAILY XX 02/26/19 09:00 02/26/19 12:38 DC Miscellaneous (Unresolved Clarification Entry) SEE LABEL COMMENTS DAILY XX 03/15/19 09:00 03/15/19 10:31 DC Miscellaneous (Unresolved Clarification Entry) SEE LABEL COMMENTS DAILY XX 03/25/19 09:00 03/25/19 12:55 DC Nitroglycerin (Nitrobid 2%) HOLD FOR SBP<140 1 INCH Q4H TOP 02/12/19 13:00 02/13/19 09:28 DC 02/13/19 08:53 Nystatin (Mycostatin Powder, Nystop) groin BID TOP 06/10/19 09:00 07/09/19 10:07 Piperacillin Sod/ Tazobactam Sod 2.25 gm/Dextrose 50 ml @ 100 mls/hr Q6H IV 07/09/19 14:00 07/09/19 20:45 Piperacillin Sod/ Tazobactam Sod 3.375 gm/Dextrose 50 ml @ 50 mls/hr Q6H IV 04/29/19 15:00 05/01/19 07:51 DC 05/01/19 03:19 Piperacillin Sod/ Tazobactam Sod 3.375 gm/Dextrose 50 ml @ 50 mls/hr Q6H IV 07/09/19 14:00 07/09/19 13:52 DC Sodium Biphosphate/ Sodium Phosphate (Fleet Enema) 1 ea Q3DP PRN MT CONSTIPATION 02/12/19 19:00 Sodium Chloride 1,000 ml @ 100 mls/hr Q10H IV 07/09/19 09:00 07/09/19 19:05 Sodium Chloride ([place] Nasal Bath) 2 spray Q2HP PRN NA NASAL DRYNESS 02/13/19 09:30 Sodium Chloride ([place]upiter Nasal Bath) 2 spray TID NA 02/13/19 09:00 03/18/19 09:01 DC 03/17/19 21:33 Tamsulosin HCl (Flomax) 0.4 mg QHS PO 02/12/19 21:00 07/08/19 21:30 Trazodone HCl (Desyrel) 25 mg QHSP PRN PO INSOMNIA 02/21/19 06:45 04/23/19 01:42 Vancomycin HCl 750 mg/IV Miscellaneous Supplies 1 each/ Dextrose 275 ml @ 275 mls/hr Q12H IV 02/12/19 02:30 02/12/19 05:32 DC Vancomycin HCl 750 mg/IV Miscellaneous Supplies 1 each/ Dextrose 275 ml @ 275 mls/hr Q24H IV 04/29/19 16:00 04/30/19 12:06 DC 04/29/19 16:50 Vancomycin HCl 1000 mg/IV Miscellaneous Supplies 1 each/ Dextrose 270 ml @ 270 mls/hr Q18H IV 02/12/19 06:00 02/15/19 06:02 DC 02/14/19 11:20 Vancomycin HCl 1000 mg/IV Miscellaneous Supplies 1 each/ Dextrose 270 ml @ 270 mls/hr Q24H IV 02/15/19 12:00 02/15/19 09:27 DC Vitamin D (Vitamin D) 1,000 units QPM PO 02/12/19 21:00 07/08/19 21:30 Allergies Coded Allergies: No Known Allergies (Unverified , 12/09/18) Radha Delgado MD Jul 09, 2019 21:06
[2019-07-09 22:00] VITALS: BP 128/45
[2019-07-09] MEDS: DIVALPROEX 250MG *ER* TAB PO SCH (22:03)
[2019-07-09] MEDS: CYANOCOBALAMIN 500 MCG TAB PO SCH (22:04)
[2019-07-09] MEDS: DONEPEZIL 5 MG TAB PO SCH (22:04)
[2019-07-09] MEDS: VITAMIN D 1,000 INTERNATIONAL UNITS TABLET PO SCH (22:04)
[2019-07-09] MEDS: TAMSULOSIN 0.4 MG CAP PO SCH (22:04)
[2019-07-10] MEDS: PIPERACILLIN/TAZOBACTAM SOD 2.25 GM in D5W MINI-BAG PLUS 50 ML IV SCH ×4 (01:38→20:27)
[2019-07-10] MEDS: NS 1,000 ML IV SCH ×2 (05:29→17:33)
[2019-07-10 06:00] VITALS: BP 152/52
[2019-07-10] MEDS: CETIRIZINE (ZyrTEC) 10 MG TAB PO SCH (09:25)
[2019-07-10] MEDS: ENOXAPARIN 30MG/0.3ML SYRINGE (J1650 PER 10MG) SC SCH (09:25)
[2019-07-10] MEDS: NYSTATIN 100,000 UNITS/GM TOPICAL PWD 15 GM TOP SCH ×2 (09:31→20:34)
[2019-07-10 14:00] VITALS: BP 148/50
--- NOTE | 2019-07-10 14:33 | IPN ---
DATE: 07/10/2019 Patient seen and examined. Vitals are reviewed. He has remained afebrile. Blood pressure this morning was 152/52, pulse oximetry 92. We discussed infection in wound with the patient's . Explained that there is metatarsal bone which is essentially a large source of his infection, which is sitting in the wound. This bone will not be appropriately treated with antibiotics alone and has no chance of healing without surgical removal. The patient's did express her concerns given that he has had poor wound healing. I did explain that I cannot guarantee that he will heal this wound or infection, but the least involved treatment would be to remove the offending bone and surrounding nonviable tissue and then plan further treatments based on response. The patient's was amenable to this plan and did give consent for the procedure. The procedure was performed at bedside. PROCEDURE: Third metatarsal head excision and wound debridement, excisional type, including subcutaneous tissue, tendon and bone. After alcohol cleanse, 15 mL of 1% lidocaine plain was injected surrounding the right foot ulceration. Following this, a Betadine prep was performed to the wound and surrounding skin. Using a #15 blade and rongeur, nonviable tissue and tendon was removed from the wound and the third metatarsal head was removed using a bone cutter. This was very soft and nonviable in appearance. Some further debridement was performed and the wound was irrigated with 50 mL of saline solution. The wound was packed with saline soaked gauze. The bone was sent for culture. He is to continue on antibiotics. Infectious disease has been consulted. We will consult vascular surgery on Friday for reevaluation. The patient had consultation back in January at which time family was not amenable to any further treatment. However, given that his foot has progressed and failure of this wound to heal, would likely require partial foot amputation. It may be prudent to have him reevaluated and possibly discuss with the family what their options are if they need to improve his blood flow to ideally stave off further amputation and infection. Will follow.
--- NOTE | 2019-07-10 15:50 | IPNPDOC ---
Date Seen The patient was seen on 07/10/19. Progress Note SUBJECTIVE: BP significantly improved, decreased rate of IVFs this AM and will keep to help with improving CALLIE. Spoke with the patient's at length about current status, infection and plan for amputation today. Initially she did not wish to proceed with amputation and had many complaints about care patient is getting. She later spoke with Dr. Murphy (podiatry) and agreed to amputation. Podiatry performed third metatarsal head excision and wound debridement, excisional type, including subcutaneous tissue, tendon and bone. Bacterial culture sent 07/10/19, wound cx from 07/09/19 bedside debridement still pending results. Overall patient is more awake, alert this AM and denies shortness of breath, n/v/d, fevers. OBJECTIVE: VITAL SIGNS: Please see below PHYSICAL EXAMINATION: CONSTITUTIONAL: Resting in chair at bedside, pleasantly confused. EYES: PERRLA, EOM intact HENT, MOUTH: Normocephalic, atraumatic, moist mucous membranes NECK: SUPPLE, no JVD, no lymphadenopathy, no carotid bruit CV: Regular rate and rhythm, S1S2 normal, no murmurs/rubs/gallops RESPIRATORY: Clear to auscultation bilaterally, no rales/rhonchi/wheezes GI: BS positive in 4 quadrants, soft, nontender, nondistended, no rebound or guarding, no organomegaly : Deferred MUSCULOSKELETAL: erythema still present surrounding the wound where 4th digit amputation occured with trace purulence/serosanguinous fluid draining from wound. Area is open and metatarsal head exposed. Some area of gangrene around amputated area of fifth toe. Contracted lower ext bilaterally. No cyanosis, clubbing, swelling, joint deformity, extremity edema INTEGUMENTARY: Intact, no rashes, no lesions, no erythema NEUROLOGIC: Cranial Nerves II-XII are intact, no focal deficits CURRENT MEDICATIONS: Please see below LABORATORY DATA: Please see below BCx x 2 sets- NG at 24 hrs Bacterial culture sent 07/10/19- results pending Wound cx from 07/09/19 bedside debridement- results pending IMAGING: No new imaging. ASSESSMENT: 83 y/o M admitted under inpatient status for treatment of gangrene of right 4th, 5th toe s/p amputation, acute kidney injury, chronic dementia awaiting placement, improved dehydration. PLAN: 1. Dehydration. Improving after stopping ACEi, continued IVFs. Decreased IVF rate to 80 cc/hr, will need to further encourage fluid and food throughout the day with poor appetite. 2. Acute kidney injury on chronic CKD Stage III 2/2 to dehydration, poor PO intake. Cr 1.52. C/w IVFs, f/u AM labs. Avoid nephrotoxic meds. 3. 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 Patient had third metatarsal head excision and wound debridement, excisional type, including subcutaneous tissue, tendon and bone 07/10/19 with culture sent. BCx x 2 sets show NG 24 hrs. ID following and will c/w IV zosyn. F/u wound culture from 07/09/2019. Vascular surgery's input appreciated and are consulted. 4. Peripheral vascular disease, chronic. According to notes, they evaluated the patient January 2019 at which time family was not amenable to any further treatment. As per podiatry, given that his foot has progressed and failure of this wound to heal, would likely require partial foot amputation. F/u vascular surgery input after weekend. 5. Chronic dementia. Has been awaiting halfway placement. Patient is currently at baseline. C/w donepezil, depakote. 6. Pressure ulcers in bilateral heels. Boots are in place. The patient is Pravin lift and turn every hour. Wound care. 7. Benign prostatic hypertrophy (BPH). C/w Flomax. 8. COPD. Stable, not currently on meds. 9. Hypertension. On lisinopril and controlled. 10. Insomnia. Trazodone. 11. DVT px. Enoxaparin. DISPOSITION: I spoke with the patient's this morning and she had many complaints. She feels as though our response to treatment for the infection was not prompt enough. She also complains that nursing is not encouraging patient to eat or drink. He told her I would pass along the concerns to the nursing election supervisor about some of her issues; however, prompt response was made when the patient was found to be hypotensive and IV antibiotics were initiated as soon as worsening infection was thought to be present. She says that she gets different reports from different people and doesn't know what to believe. I explained to her that I felt a family meeting would be good because all members of the discharge planning team would be able to update her with recent information. I spoke with the IDT prior to the weekend and they also felt this was a good idea. Will touch base with them again after the weekend to have them arrange. Podi atry, infectious disease and vascular surgery are consulted it at this time. Plan is placement to NH/SNF when Medicaid application is processed and acute issues are improved. VS, I&O, 24H, Fishbone Vital Signs/I&O Vital Signs Date Time Temp Pulse Resp B/P (MAP) Pulse Ox O2 Delivery O2 Flow Rate FiO2 07/10/19 06:00 97.9 52 15 152/52 (85) 98 Room Air I&O- Last 24 Hours up to 6 AM 07/10/19 06:00 Intake Total 3070 ml Balance 3070 ml Laboratory Data Microbiology Microbiology 07/10/19 Bacterial Culture, Received Pending 07/09/19 Wound Culture, Received Pending 07/09/19 Blood Culture - Preliminary, Resulted No growth after 24 hours . All specim... 07/09/19 Blood Culture - Preliminary, Resulted No growth after 24 hours . All specim... Current Medications Current Medications Medications (Trade) Dose Ordered Sig/Hubert Route PRN Reason Start Time Stop Time Status Last Admin Dose Admin Acetaminophen (Tylenol Tab) 650 mg Q4H PRN PO PAIN OR FEVER 02/12/19 02:30 06/16/19 10:09 Amlodipine Besylate (Norvasc) 5 mg BID PO 02/21/19 09:00 02/21/19 08:44 DC Amlodipine Besylate (Norvasc) 5 mg DAILY PO 05/10/19 09:00 05/10/19 09:32 DC Amlodipine Besylate (Norvasc) 5 mg QHS PO 04/20/19 21:00 04/29/19 14:56 DC 04/28/19 20:47 Amlodipine Besylate (Norvasc) 10 mg DAILY PO 05/03/19 09:00 05/09/19 09:24 DC 05/07/19 08:07 Amlodipine Besylate (Norvasc) 10 mg DAILY PO 02/12/19 09:00 02/13/19 09:42 DC 02/13/19 08:52 Amlodipine Besylate (Norvasc) 10 mg DAILY PO 02/13/19 09:00 02/13/19 09:45 DC Amlodipine Besylate (Norvasc) 10 mg DAILY PO 02/14/19 09:00 02/21/19 06:46 DC 02/19/19 08:33 Amlodipine Besylate (Norvasc) 10 mg QHS PO 02/21/19 21:00 04/20/19 15:21 DC 04/19/19 20:12 Amoxicillin/ Clavulanate Potassium (Augmentin) 500 mg BID PO 05/01/19 10:00 05/09/19 07:52 DC 05/08/19 19:47 Amoxicillin/ Clavulanate Potassium (Augmentin) 500 mg BID PO 03/07/19 21:00 03/12/19 10:33 DC 03/12/19 09:04 Amoxicillin/ Clavulanate Potassium (Augmentin) 875 mg BID PO 05/01/19 21:00 UNV Amoxicillin/ Clavulanate Potassium (Augmentin) 875 mg BID PO 02/15/19 09:00 02/22/19 08:59 DC 02/21/19 20:29 Ampicillin Sodium/ Sulbactam Sodium 1.5 gm/Dextrose 50 ml @ 100 mls/hr Q6H IV 02/12/19 05:00 02/15/19 09:27 DC 02/15/19 05:19 Ampicillin Sodium/ Sulbactam Sodium 3 gm/Dextrose 100 ml @ 200 mls/hr Q12H IV 03/06/19 23:00 03/07/19 17:17 DC 03/07/19 11:39 Atenolol (Tenormin) 12.5 mg BID PO 02/13/19 09:00 02/15/19 14:32 DC 02/14/19 20:57 Azithromycin (Zithromax Tab) 500 mg DAILY PO 03/07/19 09:00 03/13/19 14:18 DC 03/13/19 10:03 Azithromycin 500 mg/IV Miscellaneous Supplies 1 each/ Dextrose 255 ml @ 255 mls/hr Q24H IV 03/06/19 00:00 03/07/19 17:17 DC 03/07/19 00:44 Bisacodyl (Dulcolax Suppository) 10 mg Q2DP PRN [place] CONSTIPATION 02/12/19 18:45 02/13/19 14:23 Cephalexin Monohydrate (Keflex) 500 mg BID PO 05/25/19 09:00 06/07/19 23:59 DC 06/07/19 21:47 Cephalexin Monohydrate (Keflex) 500 mg Q12H PO 06/29/19 09:00 07/08/19 08:59 DC 07/07/19 20:39 Cetirizine HCl (ZyrTEC) 10 mg DAILY PO 02/14/19 09:00 07/10/19 09:25 Cyanocobalamin (Vitamin B12) 500 mcg QHS PO 02/12/19 21:00 07/09/19 22:04 Dextrose/Lactated Ringer's 1,000 ml @ 40 mls/hr Q24H IV 02/12/19 02:30 02/12/19 17:11 DC 02/12/19 03:12 Divalproex Sodium (Depakote Er) 500 mg QHS PO 02/12/19 21:00 07/09/19 22:03 Docusate Sodium (Colace) 100 mg Q12HP PRN PO CONSTIPATION 05/03/19 11:45 Donepezil HCl (AriCEPT) 10 mg QHS PO 02/12/19 21:00 07/09/19 22:04 Enoxaparin Sodium (Lovenox) 30 mg DAILY SC 02/15/19 09:00 07/10/19 09:25 Home Med (Med Rec Complete!) ASDIRECTED XX 02/12/19 04:00 02/12/19 04:05 DC Hydralazine HCl (Apresoline) 10 mg Q4H IV 02/12/19 14:00 02/13/19 07:26 DC 02/13/19 05:23 Hydralazine HCl (Apresoline) 20 mg Q6H PO 02/12/19 12:00 02/12/19 13:20 DC Hydralazine HCl (Apresoline) 25 mg QID PO 02/13/19 09:00 02/17/19 12:49 DC 02/17/19 11:08 Isosorbide Dinitrate (Isordil) 20 mg Q6H PO 02/13/19 18:00 02/17/19 12:49 DC 02/17/19 11:06 Labetalol HCl (Normodyne, Trandate) 2 mg Q6HP PRN IV BP > 160/100 02/12/19 03:45 02/12/19 12:21 DC Lactated Ringer's 1,000 ml @ 75 mls/hr [id number] IV 04/28/19 08:15 04/29/19 08:06 DC 04/28/19 20:48 Lactated Ringer's 1,000 ml @ 75 mls/hr [id number] IV 04/29/19 14:30 05/01/19 07:51 DC 04/30/19 19:00 Levofloxacin (Levaquin) 250 mg Q24H PO 05/30/19 22:00 06/12/19 23:59 DC 06/12/19 21:39 Levofloxacin (Levaquin) 750 mg Q48H PO 07/01/19 06:00 07/09/19 10:00 DC 07/09/19 10:07 Lisinopril (Prinivil) 5 mg QHS PO 02/21/19 21:00 04/29/19 14:56 DC 04/28/19 20:46 Lisinopril (Prinivil) 10 mg DAILY PO 05/03/19 09:00 05/09/19 09:24 DC 05/07/19 08:07 Lisinopril (Prinivil) 10 mg QHS PO 05/09/19 21:00 07/09/19 09:01 DC 07/08/19 21:36 Lisinopril (Prinivil) 10 mg QHS PO 02/17/19 21:00 02/21/19 06:43 DC 02/20/19 20:31 Lisinopril (Prinivil) 10 mg QHS PO 02/21/19 21:00 02/21/19 08:44 DC Lisinopril (Prinivil) 20 mg QHS PO 02/21/19 21:00 02/21/19 06:46 DC Magnesium Hydroxide (Milk Of Magnesia) 30 ml DAILYPRN PRN PO CONSTIPATION 02/12/19 19:00 02/13/19 08:57 Metronidazole (Flagyl) 500 mg Q8H PO 05/01/19 14:00 05/03/19 10:32 DC 05/03/19 06:56 Miscellaneous (Unresolved Clarification Entry) SEE LABEL COMMENTS DAILY XX 04/15/19 09:00 Cancel Miscellaneous (Unresolved Clarification Entry) SEE LABEL COMMENTS DAILY XX 04/21/19 09:00 04/21/19 16:34 DC Miscellaneous (Unresolved Clarification Entry) SEE LABEL COMMENTS DAILY XX 05/17/19 09:00 05/17/19 11:43 DC Miscellaneous (Unresolved Clarification Entry) SEE LABEL COMMENTS DAILY XX 05/23/19 09:00 05/24/19 12:03 DC Miscellaneous (Unresolved Clarification Entry) SEE LABEL COMMENTS DAILY XX 05/05/19 09:00 05/05/19 11:26 DC Miscellaneous (Unresolved Clarification Entry) SEE LABEL COMMENTS DAILY XX 06/18/19 09:00 06/20/19 08:54 DC Miscellaneous (Unresolved Clarification Entry) SEE LABEL COMMENTS DAILY XX 06/25/19 09:00 06/25/19 11:30 DC Miscellaneous (Unresolved Clarification Entry) SEE LABEL COMMENTS DAILY XX 02/21/19 09:00 02/22/19 06:40 DC Miscellaneous (Unresolved Clarification Entry) SEE LABEL COMMENTS DAILY XX 02/22/19 09:00 02/22/19 12:30 DC Miscellaneous (Unresolved Clarification Entry) SEE LABEL COMMENTS DAILY XX 02/26/19 09:00 02/26/19 12:38 DC Miscellaneous (Unresolved Clarification Entry) SEE LABEL COMMENTS DAILY XX 03/15/19 09:00 03/15/19 10:31 DC Miscellaneous (Unresolved Clarification Entry) SEE LABEL COMMENTS DAILY XX 03/25/19 09:00 03/25/19 12:55 DC Nitroglycerin (Nitrobid 2%) HOLD FOR SBP<140 1 INCH Q4H TOP 02/12/19 13:00 02/13/19 09:28 DC 02/13/19 08:53 Nystatin (Mycostatin Powder, Nystop) groin BID TOP 06/10/19 09:00 07/10/19 09:31 Piperacillin Sod/ Tazobactam Sod 2.25 gm/Dextrose 50 ml @ 100 mls/hr Q6H IV 07/09/19 14:00 07/10/19 14:27 Piperacillin Sod/ Tazobactam Sod 3.375 gm/Dextrose 50 ml @ 50 mls/hr Q6H IV 04/29/19 15:00 05/01/19 07:51 DC 05/01/19 03:19 Piperacillin Sod/ Tazobactam Sod 3.375 gm/Dextrose 50 ml @ 50 mls/hr Q6H IV 07/09/19 14:00 07/09/19 13:52 DC Sodium Biphosphate/ Sodium Phosphate (Fleet Enema) 1 ea Q3DP PRN [place] CONSTIPATION 02/12/19 19:00 Sodium Chloride 1,000 ml @ 80 mls/hr [id number] IV 07/09/19 09:00 07/10/19 05:29 Sodium Chloride ([place] Nasal [place]) 2 spray Q2HP PRN NA NASAL DRYNESS 02/13/19 09:30 Sodium Chloride ([place] Nasal [place]) 2 spray TID NA 02/13/19 09:00 03/18/19 09:01 DC 03/17/19 21:33 Tamsulosin HCl (Flomax) 0.4 mg QHS PO 02/12/19 21:00 07/09/19 22:04 Trazodone HCl (Desyrel) 25 mg QHSP PRN PO INSOMNIA 02/21/19 06:45 04/23/19 01:42 Vancomycin HCl 750 mg/IV Miscellaneous Supplies 1 each/ Dextrose 275 ml @ 275 mls/hr Q12H IV 02/12/19 02:30 02/12/19 05:32 DC Vancomycin HCl 750 mg/IV Miscellaneous Supplies 1 each/ Dextrose 275 ml @ 275 mls/hr Q24H IV 04/29/19 16:00 04/30/19 12:06 DC 04/29/19 16:50 Vancomycin HCl 1000 mg/IV Miscellaneous Supplies 1 each/ Dextrose 270 ml @ 270 mls/hr Q18H IV 02/12/19 06:00 02/15/19 06:02 DC 02/14/19 11:20 Vancomycin HCl 1000 mg/IV Miscellaneous Supplies 1 each/ Dextrose 270 ml @ 270 mls/hr Q24H IV 02/15/19 12:00 02/15/19 09:27 DC Vitamin D (Vitamin D) 1,000 units QPM PO 02/12/19 21:00 07/09/19 22:04 Allergies Coded Allergies: No Known Allergies (Unverified , 12/09/18) Radha Delgado MD Jul 10, 2019 15:49
[2019-07-10] MEDS: VITAMIN D 1,000 INTERNATIONAL UNITS TABLET PO SCH (20:27)
[2019-07-10] MEDS: DONEPEZIL 5 MG TAB PO SCH (20:28)
[2019-07-10] MEDS: CYANOCOBALAMIN 500 MCG TAB PO SCH (20:28)
[2019-07-10] MEDS: DIVALPROEX 250MG *ER* TAB PO SCH (20:28)
[2019-07-10] MEDS: TAMSULOSIN 0.4 MG CAP PO SCH (20:28)
[2019-07-10 22:00] VITALS: BP 141/66
[2019-07-11] MEDS: PIPERACILLIN/TAZOBACTAM SOD 2.25 GM in D5W MINI-BAG PLUS 50 ML IV SCH ×4 (01:59→22:11)
[2019-07-11 02:00] VITALS: BP 139/54
[2019-07-11 06:00] VITALS: BP 108/46
[2019-07-11] MEDS: ENOXAPARIN 30MG/0.3ML SYRINGE (J1650 PER 10MG) SC SCH (08:17)
[2019-07-11] MEDS: NYSTATIN 100,000 UNITS/GM TOPICAL PWD 15 GM TOP SCH ×2 (08:17→22:14)
[2019-07-11] MEDS: CETIRIZINE (ZyrTEC) 10 MG TAB PO SCH (08:17)
[2019-07-11 08:37] LABS: BASO % 0.4 % (0.0-1.0); EOS # 0.3 10^3/uL (0.0-0.5); EOS % 2.9 % (0.0-3.0); HEMATOCRIT 28.7 % (42.0-52.0); HEMOGLOBIN 9.1 g/dl (13.5-17.5); LYMPH # 1.4 10^3/uL (1.5-5.0); LYMPH % 12.2 % (24.0-44.0); MEAN CORPUSCULAR HGB CONC 31.7 g/dl (32.0-36.5); MEAN CORPUSCULAR VOLUME 97.6 fl (80.0-96.0); MONO # 1.1 10^3/uL (0.0-0.8); MONO % 9.2 % (0.0-5.0); NEUTROPHILS # 8.5 10^3/uL (1.5-8.5); NEUTROPHILS % 74.5 % (36.0-66.0); PLATELET COUNT, AUTOMATED 368 10^3/uL (150-450); RED BLOOD COUNT 2.94 10^6/uL (4.30-6.10); WHITE BLOOD COUNT 11.4 10^3/uL (4.0-10.0)
[2019-07-11] MEDS: NS 1,000 ML IV SCH (08:49)
[2019-07-11 08:57] LABS: BLOOD UREA NITROGEN 38 MG/DL (7-18); CALCIUM LEVEL 7.9 MG/DL (8.8-10.2); CARBON DIOXIDE LEVEL 24 MEQ/L (21-32); CHLORIDE LEVEL 112 MEQ/L (98-107); CREATININE FOR GFR 0.99 MG/DL (0.70-1.30); GLOMERULAR FILTRATION RATE > 60.0 (>35); GLUCOSE, FASTING 88 MG/DL (70-100); POTASSIUM SERUM 3.9 MEQ/L (3.5-5.1); SODIUM LEVEL 143 MEQ/L (136-145)
[2019-07-11 10:00] VITALS: BP 133/44
--- NOTE | 2019-07-11 13:59 | IPNPDOC ---
Date Seen The patient was seen on 07/11/19. Progress Note SUBJECTIVE: Awake and interactive in chair this AM. No acute complaints. Bacterial culture from 3rd metatarsal amputation pending, Wound culture from bedside debridement growing E. faecalis sensitive to vancomycin. Cr wnl, stopping IVFs. NO documented shortness of breath, n/v/d, fevers. OBJECTIVE: VITAL SIGNS: Please see below PHYSICAL EXAMINATION: CONSTITUTIONAL: Resting in chair at bedside, pleasantly confused. EYES: PERRLA, EOM intact HENT, MOUTH: Normocephalic, atraumatic, moist mucous membranes NECK: SUPPLE, no JVD, no lymphadenopathy, no carotid bruit CV: Regular rate and rhythm, S1S2 normal, no murmurs/rubs/gallops RESPIRATORY: Clear to auscultation bilaterally, no rales/rhonchi/wheezes GI: BS positive in 4 quadrants, soft, nontender, nondistended, no rebound or guarding, no organomegaly : Deferred MUSCULOSKELETAL: Area of new amputation appears clean, nonsuppurative, no foul smell. Some area of gangrene around amputated area of fifth toe. Contracted lower ext bilaterally. No cyanosis, clubbing, swelling, joint deformity, extremity edema INTEGUMENTARY: Intact, no rashes, no lesions, no erythema NEUROLOGIC: Cranial Nerves II-XII are intact, no focal deficits CURRENT MEDICATIONS: Please see below LABORATORY DATA: Please see below BCx x 2 sets- NG at 24 hrs Bacterial culture sent 07/10/19- results pending Wound cx from 07/09/19 bedside debridement- E. faecalis IMAGING: No new imaging. ASSESSMENT: 83 y/o M admitted under inpatient status for treatment of gangrene of right 4th, 5th toe s/p amputation, acute kidney injury, chronic dementia awai ting placement, improved dehydration. PLAN: 1. Dehydration. Improved. Keep patient off ACEi and will d/c IVFs today.Will need to further encourage fluid and food throughout the day with poor appetite. 2. Acute kidney failure on chronic CKD Stage III 2/2 to dehydration, poor PO intake. Cr wnl, stopping IVFs, f/u AM labs. Avoid nephrotoxic meds. 3. Distal dried gangrene, with recent third metatarsal head excision and wound debridement, excisional type, including subcutaneous tissue, tendon and bone 07/10/19. 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 Concern for osteomyelitis in area of 2nd, 3rd toe, awaiting bacterial culture. BCx x 2 sets show NG 24 hrs. ID following and will c/w IV zosyn. Consider changing IV abx to Vancomycin, discuss with ID. Vascular surgery's input appreciated and are consulted. 4. Peripheral vascular disease, chronic. Vascular evaluated the patient January 2019 at which time family was not amenable to any further treatment. As per podiatry, given that his foot has progressed and failure of this wound to heal, would likely require partial foot amputation. F/u vascular surgery input after weekend. 5. Chronic dementia. Has been awaiting [facility] placement. Patient is currently at baseline. C/w donepezil, depakote. 6. Pressure ulcers in bilateral heels. Boots are in place. The patient is Pravin lift and turn every hour. Wound care. 7. Benign prostatic hypertrophy (BPH). C/w Flomax. 8. COPD. Stable, not currently on meds. 9. Hypertension. On lisinopril and controlled. 10. Insomnia. Trazodone. 11. DVT px. Enoxaparin. DISPOSITION:Patient is currently inpatient status. Plan is NH placement when acute issues and Medicaid application processing are completed. VS, I&O, 24H, Fishbone Vital Signs/I&O Vital Signs Date Time Temp Pulse Resp B/P (MAP) Pulse Ox O2 Delivery O2 Flow Rate FiO2 07/11/19 10:00 97.4 61 17 133/44 (73) 94 Room Air I&O- Last 24 Hours up to 6 AM 07/11/19 05:59 Intake Total 1500 ml Balance 1500 ml Laboratory Data 24H LABS Laboratory Tests 2 07/11/19 08:27: Immature Granulocyte % (Auto) 0.8, Neutrophils (%) (Auto) 74.5H, Lymphocytes (%) (Auto) 12.2L, Monocytes (%) (Auto) 9.2H, Eosinophils (%) (Auto) 2.9, Basophils (%) (Auto) 0.4, Neutrophils # (Auto) 8.5, Lymphocytes # (Auto) 1.4L, Monocytes # (Auto) 1.1H, Eosinophils # (Auto) 0.3, Basophils # (Auto) 0.0, Nucleated Red Blood Cells % (auto) 0.0, Anion Gap 7L, Glomerular Filtration Rate > 60.0, Calcium Level 7.9L CBC/BMP Laboratory Tests 07/11/19 08:27 Microbiology Microbiology 07/10/19 Bacterial Culture, Received Pending 07/09/19 Wound Culture - Final, Complete Enterococcus Faecalis 07/09/19 Blood Culture - Preliminary, Resulted No Growth after 48 hours. All Specime... 07/09/19 Blood Culture - Preliminary, Resulted No Growth after 48 hours. All Specime... Current Medications Current Medications Medications (Trade) Dose Ordered Sig/Hubert Route PRN Reason Start Time Stop Time Status Last Admin Dose Admin Acetaminophen (Tylenol Tab) 650 mg Q4H PRN PO PAIN OR FEVER 02/12/19 02:30 06/16/19 10:09 Amlodipine Besylate (Norvasc) 5 mg BID PO 02/21/19 09:00 02/21/19 08:44 DC Amlodipine Besylate (Norvasc) 5 mg DAILY PO 05/10/19 09:00 05/10/19 09:32 DC Amlodipine Besylate (Norvasc) 5 mg QHS PO 04/20/19 21:00 04/29/19 14:56 DC 04/28/19 20:47 Amlodipine Besylate (Norvasc) 10 mg DAILY PO 05/03/19 09:00 05/09/19 09:24 DC 05/07/19 08:07 Amlodipine Besylate (Norvasc) 10 mg DAILY PO 02/12/19 09:00 02/13/19 09:42 DC 02/13/19 08:52 Amlodipine Besylate (Norvasc) 10 mg DAILY PO 02/13/19 09:00 02/13/19 09:45 DC Amlodipine Besylate (Norvasc) 10 mg DAILY PO 02/14/19 09:00 02/21/19 06:46 DC 02/19/19 08:33 Amlodipine Besylate (Norvasc) 10 mg QHS PO 02/21/19 21:00 04/20/19 15:21 DC 04/19/19 20:12 Amoxicillin/ Clavulanate Potassium (Augmentin) 500 mg BID PO 05/01/19 10:00 05/09/19 07:52 DC 05/08/19 19:47 Amoxicillin/ Clavulanate Potassium (Augmentin) 500 mg BID PO 03/07/19 21:00 03/12/19 10:33 DC 03/12/19 09:04 Amoxicillin/ Clavulanate Potassium (Augmentin) 875 mg BID PO 05/01/19 21:00 UNV Amoxicillin/ Clavulanate Potassium (Augmentin) 875 mg BID PO 02/15/19 09:00 02/22/19 08:59 DC 02/21/19 20:29 Ampicillin Sodium/ Sulbactam Sodium 1.5 gm/Dextrose 50 ml @ 100 mls/hr Q6H IV 02/12/19 05:00 02/15/19 09:27 DC 02/15/19 05:19 Ampicillin Sodium/ Sulbactam Sodium 3 gm/Dextrose 100 ml @ 200 mls/hr Q12H IV 03/06/19 23:00 03/07/19 17:17 DC 03/07/19 11:39 Atenolol (Tenormin) 12.5 mg BID PO 02/13/19 09:00 02/15/19 14:32 DC 02/14/19 20:57 Azithromycin (Zithromax Tab) 500 mg DAILY PO 03/07/19 09:00 03/13/19 14:18 DC 03/13/19 10:03 Azithromycin 500 mg/IV Miscellaneous Supplies 1 each/ Dextrose 255 ml @ 255 mls/hr Q24H IV 03/06/19 00:00 03/07/19 17:17 DC 03/07/19 00:44 Bisacodyl (Dulcolax Suppository) 10 mg Q2DP PRN OR CONSTIPATION 02/12/19 18:45 02/13/19 14:23 Cephalexin Monohydrate (Keflex) 500 mg BID PO 05/25/19 09:00 06/07/19 23:59 DC 06/07/19 21:47 Cephalexin Monohydrate (Keflex) 500 mg Q12H PO 06/29/19 09:00 07/08/19 08:59 DC 07/07/19 20:39 Cetirizine HCl (ZyrTEC) 10 mg DAILY PO 02/14/19 09:00 07/11/19 08:17 Cyanocobalamin (Vitamin B12) 500 mcg QHS PO 02/12/19 21:00 07/10/19 20:28 Dextrose/Lactated Ringer's 1,000 ml @ 40 mls/hr Q24H IV 02/12/19 02:30 02/12/19 17:11 DC 02/12/19 03:12 Divalproex Sodium (Depakote Er) 500 mg QHS PO 02/12/19 21:00 07/10/19 20:28 Docusate Sodium (Colace) 100 mg Q12HP PRN PO CONSTIPATION 05/03/19 11:45 Donepezil HCl (AriCEPT) 10 mg QHS PO 02/12/19 21:00 07/10/19 20:28 Enoxaparin Sodium (Lovenox) 30 mg DAILY SC 02/15/19 09:00 07/11/19 08:17 Home Med (Med Rec Complete!) ASDIRECTED XX 02/12/19 04:00 02/12/19 04:05 DC Hydralazine HCl (Apresoline) 10 mg Q4H IV 02/12/19 14:00 02/13/19 07:26 DC 02/13/19 05:23 Hydralazine HCl (Apresoline) 20 mg Q6H PO 02/12/19 12:00 02/12/19 13:20 DC Hydralazine HCl (Apresoline) 25 mg QID PO 02/13/19 09:00 02/17/19 12:49 DC 02/17/19 11:08 Isosorbide Dinitrate (Isordil) 20 mg Q6H PO 02/13/19 18:00 02/17/19 12:49 DC 02/17/19 11:06 Labetalol HCl (Normodyne, Trandate) 2 mg Q6HP PRN IV BP > 160/100 02/12/19 03:45 02/12/19 12:21 DC Lactated Ringer's 1,000 ml @ 75 mls/hr [id number] IV 04/28/19 08:15 04/29/19 08:06 DC 04/28/19 20:48 Lactated Ringer's 1,000 ml @ 75 mls/hr [id number] IV 04/29/19 14:30 05/01/19 07:51 DC 04/30/19 19:00 Levofloxacin (Levaquin) 250 mg Q24H PO 05/30/19 22:00 06/12/19 23:59 DC 06/12/19 21:39 Levofloxacin (Levaquin) 750 mg Q48H PO 07/01/19 06:00 07/09/19 10:00 DC 07/09/19 10:07 Lisinopril (Prinivil) 5 mg QHS PO 02/21/19 21:00 04/29/19 14:56 DC 04/28/19 20:46 Lisinopril (Prinivil) 10 mg DAILY PO 05/03/19 09:00 05/09/19 09:24 DC 05/07/19 08:07 Lisinopril (Prinivil) 10 mg QHS PO 05/09/19 21:00 07/09/19 09:01 DC 07/08/19 21:36 Lisinopril (Prinivil) 10 mg QHS PO 02/17/19 21:00 02/21/19 06:43 DC 02/20/19 20:31 Lisinopril (Prinivil) 10 mg QHS PO 02/21/19 21:00 02/21/19 08:44 DC Lisinopril (Prinivil) 20 mg QHS PO 02/21/19 21:00 02/21/19 06:46 DC Magnesium Hydroxide (Milk Of Magnesia) 30 ml DAILYPRN PRN PO CONSTIPATION 02/12/19 19:00 02/13/19 08:57 Metronidazole (Flagyl) 500 mg Q8H PO 05/01/19 14:00 05/03/19 10:32 DC 05/03/19 06:56 Miscellaneous (Unresolved Clarification Entry) SEE LABEL COMMENTS DAILY XX 04/15/19 09:00 Cancel Miscellaneous (Unresolved Clarification Entry) SEE LABEL COMMENTS DAILY XX 04/21/19 09:00 04/21/19 16:34 DC Miscellaneous (Unresolved Clarification Entry) SEE LABEL COMMENTS DAILY XX 05/17/19 09:00 05/17/19 11:43 DC Miscellaneous (Unresolved Clarification Entry) SEE LABEL COMMENTS DAILY XX 05/23/19 09:00 05/24/19 12:03 DC Miscellaneous (Unresolved Clarification Entry) SEE LABEL COMMENTS DAILY XX 05/05/19 09:00 05/05/19 11:26 DC Miscellaneous (Unresolved Clarification Entry) SEE LABEL COMMENTS DAILY XX 06/18/19 09:00 06/20/19 08:54 DC Miscellaneous (Unresolved Clarification Entry) SEE LABEL COMMENTS DAILY XX 06/25/19 09:00 06/25/19 11:30 DC Miscellaneous (Unresolved Clarification Entry) SEE LABEL COMMENTS DAILY XX 07/11/19 09:00 07/11/19 11:57 DC Miscellaneous (Unresolved Clarification Entry) SEE LABEL COMMENTS DAILY XX 02/21/19 09:00 02/22/19 06:40 DC Miscellaneous (Unresolved Clarification Entry) SEE LABEL COMMENTS DAILY XX 02/22/19 09:00 02/22/19 12:30 DC Miscellaneous (Unresolved Clarification Entry) SEE LABEL COMMENTS DAILY XX 02/26/19 09:00 02/26/19 12:38 DC Miscellaneous (Unresolved Clarification Entry) SEE LABEL COMMENTS DAILY XX 03/15/19 09:00 03/15/19 10:31 DC Miscellaneous (Unresolved Clarification Entry) SEE LABEL COMMENTS DAILY XX 03/25/19 09:00 03/25/19 12:55 DC Nitroglycerin (Nitrobid 2%) HOLD FOR SBP<140 1 INCH Q4H TOP 02/12/19 13:00 02/13/19 09:28 DC 02/13/19 08:53 Nystatin (Mycostatin Powder, Nystop) groin BID TOP 06/10/19 09:00 07/11/19 08:17 Piperacillin Sod/ Tazobactam Sod 2.25 gm/Dextrose 50 ml @ 100 mls/hr Q6H IV 07/09/19 14:00 07/11/19 08:16 Piperacillin Sod/ Tazobactam Sod 3.375 gm/Dextrose 50 ml @ 50 mls/hr Q6H IV 04/29/19 15:00 05/01/19 07:51 DC 05/01/19 03:19 Piperacillin Sod/ Tazobactam Sod 3.375 gm/Dextrose 50 ml @ 50 mls/hr Q6H IV 07/09/19 14:00 07/09/19 13:52 DC Sodium Biphosphate/ Sodium Phosphate (Fleet Enema) 1 ea Q3DP PRN OR CONSTIPATION 02/12/19 19:00 Sodium Chloride 1,000 ml @ 80 mls/hr [id number] IV 07/09/19 09:00 07/11/19 08:49 Sodium Chloride ([place] Nasal [place]) 2 spray Q2HP PRN NA NASAL DRYNESS 02/13/19 09:30 Sodium Chloride ([place] Nasal [place]) 2 spray TID NA 02/13/19 09:00 03/18/19 09:01 DC 03/17/19 21:33 Tamsulosin HCl (Flomax) 0.4 mg QHS PO 02/12/19 21:00 07/10/19 20:28 Trazodone HCl (Desyrel) 25 mg QHSP PRN PO INSOMNIA 02/21/19 06:45 04/23/19 01:42 Vancomycin HCl 750 mg/IV Miscellaneous Supplies 1 each/ Dextrose 275 ml @ 275 mls/hr Q12H IV 02/12/19 02:30 02/12/19 05:32 DC Vancomycin HCl 750 mg/IV Miscellaneous Supplies 1 each/ Dextrose 275 ml @ 275 mls/hr Q24H IV 04/29/19 16:00 04/30/19 12:06 DC 04/29/19 16:50 Vancomycin HCl 1000 mg/IV Miscellaneous Supplies 1 each/ Dextrose 270 ml @ 270 mls/hr Q18H IV 02/12/19 06:00 02/15/19 06:02 DC 02/14/19 11:20 Vancomycin HCl 1000 mg/IV Miscellaneous Supplies 1 each/ Dextrose 270 ml @ 270 mls/hr Q24H IV 02/15/19 12:00 02/15/19 09:27 DC Vitamin D (Vitamin D) 1,000 units QPM PO 02/12/19 21:00 07/10/19 20:27 Allergies Coded Allergies: No Known Allergies (Unverified , 12/09/18) Radha Delgado MD Jul 11, 2019 13:59
[2019-07-11 14:00] VITALS: BP 124/51
[2019-07-11 18:00] VITALS: BP 113/78
[2019-07-11 22:00] VITALS: BP 169/74
[2019-07-11] MEDS: VITAMIN D 1,000 INTERNATIONAL UNITS TABLET PO SCH (22:12)
[2019-07-11] MEDS: DONEPEZIL 5 MG TAB PO SCH (22:12)
[2019-07-11] MEDS: TAMSULOSIN 0.4 MG CAP PO SCH (22:13)
[2019-07-11] MEDS: CYANOCOBALAMIN 500 MCG TAB PO SCH (22:13)
[2019-07-11] MEDS: DIVALPROEX 250MG *ER* TAB PO SCH (22:14)
[2019-07-12 02:00] VITALS: BP 175/63
[2019-07-12] MEDS: PIPERACILLIN/TAZOBACTAM SOD 2.25 GM in D5W MINI-BAG PLUS 50 ML IV SCH ×2 (02:28→08:16)
[2019-07-12] MEDS ORDERED: lisinopriL 5 MG TAB PO SCH (02:30)
[2019-07-12 06:00] VITALS: BP 132/86
[2019-07-12 06:14] LABS: BASO % 0.5 % (0.0-1.0); EOS # 0.4 10^3/uL (0.0-0.5); EOS % 4.3 % (0.0-3.0); HEMATOCRIT 27.7 % (42.0-52.0); HEMOGLOBIN 8.9 g/dl (13.5-17.5); LYMPH # 1.3 10^3/uL (1.5-5.0); LYMPH % 15.2 % (24.0-44.0); MEAN CORPUSCULAR HEMOGLOBIN 31.2 pg (27.0-33.0); MEAN CORPUSCULAR HGB CONC 32.1 g/dl (32.0-36.5); MEAN CORPUSCULAR VOLUME 97.2 fl (80.0-96.0); MONO # 0.7 10^3/uL (0.0-0.8); MONO % 8.4 % (0.0-5.0); NEUTROPHILS # 6.1 10^3/uL (1.5-8.5); NEUTROPHILS % 70.6 % (36.0-66.0); RED BLOOD COUNT 2.85 10^6/uL (4.30-6.10); WHITE BLOOD COUNT 8.6 10^3/uL (4.0-10.0)
[2019-07-12 06:18] LABS: PLATELET COUNT, AUTOMATED 253 10^3/uL (150-450)
[2019-07-12 06:41] LABS: BLOOD UREA NITROGEN 32 MG/DL (7-18); CALCIUM LEVEL 7.8 MG/DL (8.8-10.2); CARBON DIOXIDE LEVEL 24 MEQ/L (21-32); CHLORIDE LEVEL 110 MEQ/L (98-107); GLOMERULAR FILTRATION RATE > 60.0 (>35); GLUCOSE, FASTING 75 MG/DL (70-100); POTASSIUM SERUM 4.2 MEQ/L (3.5-5.1); SODIUM LEVEL 140 MEQ/L (136-145)
[2019-07-12] MEDS: CETIRIZINE (ZyrTEC) 10 MG TAB PO SCH (08:17)
[2019-07-12] MEDS: ENOXAPARIN 30MG/0.3ML SYRINGE (J1650 PER 10MG) SC SCH (08:18)
[2019-07-12] MEDS: NYSTATIN 100,000 UNITS/GM TOPICAL PWD 15 GM TOP SCH ×2 (08:18→22:12)
[2019-07-12] MEDS ORDERED: VANCOMYCIN HCL 500 MG in IV FLUID PLACE HOLDER 1 EA IV SCH (08:45)
[2019-07-12 10:00] VITALS: BP 85/40
[2019-07-12] MEDS ORDERED: VANCOMYCIN HCL 1,000 MG, VIAL MATE ADAPTER 1 EACH in D5W 250 ML IV ONE (10:00)
--- NOTE | 2019-07-12 10:41 | IPN ---
DATE: 07/12/2019 Patient seen at bedside. No overnight events are noted. He has remained afebrile. White blood cell count today is 8.6. Lower extremity examination: Wound is improved. There is no longer any necrotic bone within the wound margin. There remains some eschar at the lateral foot adjacent to the wound. Erythema is somewhat improved. ASSESSMENT: 83-year-old male with peripheral vascular disease status post tarsal bone excision. PLAN: Despite improvement the patient still has very limited ability to heal this wound due to his chronic peripheral vascular disease. Vascular surgery has been consulted to see if there is any potential to improve his blood flow. The case is challenging given that the family has been resistant to have any procedures done given his dementia and feeble health status. It may prudent however to have some vascular intervention ideally to improve his potential chances for healing as he will likely continue to progress to further gangrene and require further amputations. Most likely any further amputations would at minimum require an operating room (OR) visit, which again may not heal given his poor blood flow. Will continue to follow.
[2019-07-12 14:00] VITALS: BP 133/60
[2019-07-12 18:00] VITALS: BP 120/58
[2019-07-12 22:00] VITALS: BP 140/68
[2019-07-12] MEDS: DIVALPROEX 250MG *ER* TAB PO SCH (22:11)
[2019-07-12] MEDS: CYANOCOBALAMIN 500 MCG TAB PO SCH (22:11)
[2019-07-12] MEDS: VITAMIN D 1,000 INTERNATIONAL UNITS TABLET PO SCH (22:11)
[2019-07-12] MEDS: DONEPEZIL 5 MG TAB PO SCH (22:11)
[2019-07-12] MEDS: TAMSULOSIN 0.4 MG CAP PO SCH (22:11)
--- NOTE | 2019-07-12 23:28 | IPNPDOC ---
Date Seen The patient was seen on 07/12/19. Progress Note SUBJECTIVE: Resting in chair this AM. No acute complaints. Awaiting vascular input to case. No documented shortness of breath, n/v/d, fevers. OBJECTIVE: VITAL SIGNS: Please see below PHYSICAL EXAMINATION: CONSTITUTIONAL: Resting in chair at bedside, pleasantly confused. EYES: PERRLA, EOM intact HENT, MOUTH: Normocephalic, atraumatic, moist mucous membranes NECK: SUPPLE, no JVD, no lymphadenopathy, no carotid bruit CV: Regular rate and rhythm, S1S2 normal, no murmurs/rubs/gallops RESPIRATORY: Clear to auscultation bilaterally, no rales/rhonchi/wheezes GI: BS positive in 4 quadrants, soft, nontender, nondistended, no rebound or guarding, no organomegaly : Deferred MUSCULOSKELETAL: Area of new amputation appears clean, nonsuppurative, no foul smell. Some area of gangrene around amputated area of fifth toe. Contracted lower ext bilaterally. No cyanosis, clubbing, swelling, joint deformity, extremity edema INTEGUMENTARY: Intact, no rashes, no lesions, no erythema NEUROLOGIC: Cranial Nerves II-XII are intact, no focal deficits CURRENT MEDICATIONS: Please see below LABORATORY DATA: Please see below BCx x 2 sets- NG at 24 hrs Bacterial culture sent 07/10/19- results pending Wound cx from 07/09/19 bedside debridement- E. faecalis IMAGING: No new imaging. ASSESSMENT: 83 y/o M admitted under inpatient status for treatment of gangrene of right 4th, 5th toe s/p amputation, acute kidney injury, chronic dementia awaiting placement, improved dehydration. PLAN: 1. Hypotension s/p medication administration. Hx of HTN. Keeping patient off antihypertensive medications for now. 2. Distal dried gangrene, with recent third metatarsal head excision and wound debridement, excisional type, including subcutaneous tissue, tendon and bone 07/10/19. 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 + E. faecalis sensitive to Vancomycin, d/c zosyn. BCx x 2 sets show NG 24 hrs. 3. Peripheral vascular disease, chronic. Awaiting vascular input, consult placed by podiatry. As per podiatry, given that his foot has progressed and failure of this wound to heal, would likely require partial foot amputation. 4. Acute kidney failure on chronic CKD Stage III 2/2 to dehydration, poor PO intake. Resolved. 5. Chronic dementia. Has been awaiting intermediate placement. Patient is currently at baseline. C/w donepezil, depakote. 6. Pressure ulcers in bilateral heels. Boots are in place. The patient is Pravin lift and turn every hour. Wound care. 7. Benign prostatic hypertrophy (BPH). C/w Flomax. 8. COPD. Stable, not currently on meds. 9. Insomnia. Trazodone. 10. DVT px. Enoxaparin. DISPOSITION:Patient is currently inpatient status. Plan is NH placement when acute issues and Medicaid application processing are completed. I am recommending a family meeting occur between members of discharge team and , as she had many questions. Perhaps that can be done this week. VS, I&O, 24H, Fishbone Vital Signs/I&O Vital Signs Date Time Temp Pulse Resp B/P (MAP) Pulse Ox O2 Delivery O2 Flow Rate FiO2 07/12/19 22:00 97.5 65 16 140/68 (92) 94 Room Air I&O- Last 24 Hours up to 6 AM 07/12/19 06:00 Intake Total 1460 ml Output Total 0 ml Balance 1460 ml Laboratory Data 24H LABS Laboratory Tests 2 07/12/19 05:44: Immature Granulocyte % (Auto) 1.0, Neutrophils (%) (Auto) 70.6H, Lymphocytes (%) (Auto) 15.2L, Monocytes (%) (Auto) 8.4H, Eosinophils (%) (Auto) 4.3H, Basophils (%) (Auto) 0.5, Neutrophils # (Auto) 6.1, Lymphocytes # (Auto) 1.3L, Monocytes # (Auto) 0.7, Eosinophils # (Auto) 0.4, Basophils # (Auto) 0.0, Nucleated Red Blood Cells % (auto) 0.0, Anion Gap 6L, Glomerular Filtration Rate > 60.0, Calcium Level 7.8L CBC/BMP Laboratory Tests 07/12/19 05:44 Microbiology Microbiology 07/10/19 Bacterial Culture - Final, Complete Enterococcus Faecalis 07/09/19 Wound Culture - Final, Complete Enterococcus Faecalis 07/09/19 Blood Culture - Preliminary, Resulted No Growth after 72 hours. All specime... 07/09/19 Blood Culture - Preliminary, Resulted No Growth after 72 hours. All specime... Current Medications Current Medications Medications (Trade) Dose Ordered Sig/Hubert Route PRN Reason Start Time Stop Time Status Last Admin Dose Admin Acetaminophen (Tylenol Tab) 650 mg Q4H PRN PO PAIN OR FEVER 02/12/19 02:30 06/16/19 10:09 Amlodipine Besylate (Norvasc) 2.5 mg BID PO 07/12/19 02:30 07/12/19 10:15 DC 07/12/19 08:17 Amlodipine Besylate (Norvasc) 5 mg BID PO 02/21/19 09:00 02/21/19 08:44 DC Amlodipine Besylate (Norvasc) 5 mg DAILY PO 05/10/19 09:00 05/10/19 09:32 DC Amlodipine Besylate (Norvasc) 5 mg QHS PO 04/20/19 21:00 04/29/19 14:56 DC 04/28/19 20:47 Amlodipine Besylate (Norvasc) 10 mg DAILY PO 05/03/19 09:00 05/09/19 09:24 DC 05/07/19 08:07 Amlodipine Besylate (Norvasc) 10 mg DAILY PO 02/12/19 09:00 02/13/19 09:42 DC 02/13/19 08:52 Amlodipine Besylate (Norvasc) 10 mg DAILY PO 02/13/19 09:00 02/13/19 09:45 DC Amlodipine Besylate (Norvasc) 10 mg DAILY PO 02/14/19 09:00 02/21/19 06:46 DC 02/19/19 08:33 Amlodipine Besylate (Norvasc) 10 mg QHS PO 02/21/19 21:00 04/20/19 15:21 DC 04/19/19 20:12 Amoxicillin/ Clavulanate Potassium (Augmentin) 500 mg BID PO 05/01/19 10:00 05/09/19 07:52 DC 05/08/19 19:47 Amoxicillin/ Clavulanate Potassium (Augmentin) 500 mg BID PO 03/07/19 21:00 03/12/19 10:33 DC 03/12/19 09:04 Amoxicillin/ Clavulanate Potassium (Augmentin) 875 mg BID PO 05/01/19 21:00 UNV Amoxicillin/ Clavulanate Potassium (Augmentin) 875 mg BID PO 02/15/19 09:00 02/22/19 08:59 DC 02/21/19 20:29 Ampicillin Sodium/ Sulbactam Sodium 1.5 gm/Dextrose 50 ml @ 100 mls/hr Q6H IV 02/12/19 05:00 02/15/19 09:27 DC 02/15/19 05:19 Ampicillin Sodium/ Sulbactam Sodium 3 gm/Dextrose 100 ml @ 200 mls/hr Q12H IV 03/06/19 23:00 03/07/19 17:17 DC 03/07/19 11:39 Atenolol (Tenormin) 12.5 mg BID PO 02/13/19 09:00 02/15/19 14:32 DC 02/14/19 20:57 Azithromycin (Zithromax Tab) 500 mg DAILY PO 03/07/19 09:00 03/13/19 14:18 DC 03/13/19 10:03 Azithromycin 500 mg/IV Miscellaneous Supplies 1 each/ Dextrose 255 ml @ 255 mls/hr Q24H IV 03/06/19 00:00 03/07/19 17:17 DC 03/07/19 00:44 Bisacodyl (Dulcolax Suppository) 10 mg Q2DP PRN GA CONSTIPATION 02/12/19 18:45 02/13/19 14:23 Cephalexin Monohydrate (Keflex) 500 mg BID PO 05/25/19 09:00 06/07/19 23:59 DC 06/07/19 21:47 Cephalexin Monohydrate (Keflex) 500 mg Q12H PO 06/29/19 09:00 07/08/19 08:59 DC 07/07/19 20:39 Cetirizine HCl (ZyrTEC) 10 mg DAILY PO 02/14/19 09:00 07/12/19 08:17 Cyanocobalamin (Vitamin B12) 500 mcg QHS PO 02/12/19 21:00 07/12/19 22:11 Dextrose/Lactated Ringer's 1,000 ml @ 40 mls/hr Q24H IV 02/12/19 02:30 02/12/19 17:11 DC 02/12/19 03:12 Divalproex Sodium (Depakote Er) 500 mg QHS PO 02/12/19 21:00 07/12/19 22:11 Docusate Sodium (Colace) 100 mg Q12HP PRN PO CONSTIPATION 05/03/19 11:45 Donepezil HCl (AriCEPT) 10 mg QHS PO 02/12/19 21:00 07/12/19 22:11 Enoxaparin Sodium (Lovenox) 30 mg DAILY SC 02/15/19 09:00 07/12/19 08:18 Home Med (Med Rec Complete!) ASDIRECTED XX 02/12/19 04:00 02/12/19 04:05 DC Hydralazine HCl (Apresoline) 10 mg Q4H IV 02/12/19 14:00 02/13/19 07:26 DC 02/13/19 05:23 Hydralazine HCl (Apresoline) 20 mg Q6H PO 02/12/19 12:00 02/12/19 13:20 DC Hydralazine HCl (Apresoline) 25 mg QID PO 02/13/19 09:00 02/17/19 12:49 DC 02/17/19 11:08 Isosorbide Dinitrate (Isordil) 20 mg Q6H PO 02/13/19 18:00 02/17/19 12:49 DC 02/17/19 11:06 Labetalol HCl (Normodyne, Trandate) 2 mg Q6HP PRN IV BP > 160/100 02/12/19 03:45 02/12/19 12:21 DC Lactated Ringer's 1,000 ml @ 75 mls/hr [id number] IV 04/28/19 08:15 04/29/19 08:06 DC 04/28/19 20:48 Lactated Ringer's 1,000 ml @ 75 mls/hr [id number] IV 04/29/19 14:30 05/01/19 07:51 DC 04/30/19 19:00 Levofloxacin (Levaquin) 250 mg Q24H PO 05/30/19 22:00 06/12/19 23:59 DC 06/12/19 21:39 Levofloxacin (Levaquin) 750 mg Q48H PO 07/01/19 06:00 07/09/19 10:00 DC 07/09/19 10:07 Lisinopril (Prinivil) 5 mg DAILY PO 07/12/19 02:30 07/12/19 10:15 DC 07/12/19 02:57 Lisinopril (Prinivil) 5 mg QHS PO 02/21/19 21:00 04/29/19 14:56 DC 04/28/19 20:46 Lisinopril (Prinivil) 10 mg DAILY PO 05/03/19 09:00 05/09/19 09:24 DC 05/07/19 08:07 Lisinopril (Prinivil) 10 mg QHS PO 05/09/19 21:00 07/09/19 09:01 DC 07/08/19 21:36 Lisinopril (Prinivil) 10 mg QHS PO 02/17/19 21:00 02/21/19 06:43 DC 02/20/19 20:31 Lisinopril (Prinivil) 10 mg QHS PO 02/21/19 21:00 02/21/19 08:44 DC Lisinopril (Prinivil) 20 mg QHS PO 02/21/19 21:00 02/21/19 06:46 DC Magnesium Hydroxide (Milk Of Magnesia) 30 ml DAILYPRN PRN PO CONSTIPATION 02/12/19 19:00 02/13/19 08:57 Metronidazole (Flagyl) 500 mg Q8H PO 05/01/19 14:00 05/03/19 10:32 DC 05/03/19 06:56 Miscellaneous (Unresolved Clarification Entry) SEE LABEL COMMENTS DAILY XX 04/15/19 09:00 Cancel Miscellaneous (Unresolved Clarification Entry) SEE LABEL COMMENTS DAILY XX 04/21/19 09:00 04/21/19 16:34 DC Miscellaneous (Unresolved Clarification Entry) SEE LABEL COMMENTS DAILY XX 05/17/19 09:00 05/17/19 11:43 DC Miscellaneous (Unresolved Clarification Entry) SEE LABEL COMMENTS DAILY XX 05/23/19 09:00 05/24/19 12:03 DC Miscellaneous (Unresolved Clarification Entry) SEE LABEL COMMENTS DAILY XX 05/05/19 09:00 05/05/19 11:26 DC Miscellaneous (Unresolved Clarification Entry) SEE LABEL COMMENTS DAILY XX 06/18/19 09:00 06/20/19 08:54 DC Miscellaneous (Unresolved Clarification Entry) SEE LABEL COMMENTS DAILY XX 06/25/19 09:00 06/25/19 11:30 DC Miscellaneous (Unresolved Clarification Entry) SEE LABEL COMMENTS DAILY XX 07/11/19 09:00 07/11/19 11:57 DC Miscellaneous (Unresolved Clarification Entry) SEE LABEL COMMENTS DAILY XX 02/21/19 09:00 02/22/19 06:40 DC Miscellaneous (Unresolved Clarification Entry) SEE LABEL COMMENTS DAILY XX 02/22/19 09:00 02/22/19 12:30 DC Miscellaneous (Unresolved Clarification Entry) SEE LABEL COMMENTS DAILY XX 02/26/19 09:00 02/26/19 12:38 DC Miscellaneous (Unresolved Clarification Entry) SEE LABEL COMMENTS DAILY XX 03/15/19 09:00 03/15/19 10:31 DC Miscellaneous (Unresolved Clarification Entry) SEE LABEL COMMENTS DAILY XX 03/25/19 09:00 03/25/19 12:55 DC Nitroglycerin (Nitrobid 2%) HOLD FOR SBP<140 1 INCH Q4H TOP 02/12/19 13:00 02/13/19 09:28 DC 02/13/19 08:53 Nystatin (Mycostatin Powder, Nystop) groin BID TOP 06/10/19 09:00 07/12/19 22:12 Piperacillin Sod/ Tazobactam Sod 2.25 gm/Dextrose 50 ml @ 100 mls/hr Q6H IV 07/09/19 14:00 07/12/19 08:42 DC 07/12/19 08:16 Piperacillin Sod/ Tazobactam Sod 3.375 gm/Dextrose 50 ml @ 50 mls/hr Q6H IV 04/29/19 15:00 05/01/19 07:51 DC 05/01/19 03:19 Piperacillin Sod/ Tazobactam Sod 3.375 gm/Dextrose 50 ml @ 50 mls/hr Q6H IV 07/09/19 14:00 07/09/19 13:52 DC Sodium Biphosphate/ Sodium Phosphate (Fleet Enema) 1 ea Q3DP PRN GA CONSTIPATION 02/12/19 19:00 Sodium Chloride 1,000 ml @ 80 mls/hr [id number] IV 07/09/19 09:00 07/11/19 14:05 DC 07/11/19 08:49 Sodium Chloride ([place] Nasal [place]) 2 spray Q2HP PRN NA NASAL DRYNESS 02/13/19 09:30 Sodium Chloride ([place] Nasal [place]) 2 spray TID NA 02/13/19 09:00 03/18/19 09:01 DC 03/17/19 21:33 Tamsulosin HCl (Flomax) 0.4 mg QHS PO 02/12/19 21:00 07/12/19 22:11 Trazodone HCl (Desyrel) 25 mg QHSP PRN PO INSOMNIA 02/21/19 06:45 04/23/19 01:42 Vancomycin HCl 500 mg/IV Miscellaneous Supplies 10 ml @ 10 mls/hr Q8H IV 07/12/19 08:45 07/12/19 09:07 DC Vancomycin HCl 750 mg/IV Miscellaneous Supplies 1 each/ Dextrose 275 ml @ 275 mls/hr Q12H IV 02/12/19 02:30 02/12/19 05:32 DC Vancomycin HCl 750 mg/IV Miscellaneous Supplies 1 each/ Dextrose 275 ml @ 275 mls/hr Q24H IV 04/29/19 16:00 04/30/19 12:06 DC 04/29/19 16:50 Vancomycin HCl 1000 mg/IV Miscellaneous Supplies 1 each/ Dextrose 270 ml @ 270 mls/hr Q18H IV 02/12/19 06:00 02/15/19 06:02 DC 02/14/19 11:20 Vancomycin HCl 1000 mg/IV Miscellaneous Supplies 1 each/ Dextrose 270 ml @ 270 mls/hr Q24H IV 07/13/19 07:00 Vancomycin HCl 1000 mg/IV Miscellaneous Supplies 1 each/ Dextrose 270 ml @ 270 mls/hr Q24H IV 02/15/19 12:00 02/15/19 09:27 DC Vitamin D (Vitamin D) 1,000 units QPM PO 02/12/19 21:00 07/12/19 22:11 Allergies Coded Allergies: No Known Allergies (Unverified , 12/09/18) Radha Delgado MD Jul 12, 2019 23:28
[2019-07-13 02:00] VITALS: BP 170/68
[2019-07-13 05:45] LABS: BASO % 0.3 % (0.0-1.0); EOS # 0.3 10^3/uL (0.0-0.5); EOS % 3.1 % (0.0-3.0); HEMATOCRIT 27.2 % (42.0-52.0); LYMPH # 1.2 10^3/uL (1.5-5.0); LYMPH % 13.2 % (24.0-44.0); MEAN CORPUSCULAR HEMOGLOBIN 31.4 pg (27.0-33.0); MEAN CORPUSCULAR HGB CONC 33.1 g/dl (32.0-36.5); MEAN CORPUSCULAR VOLUME 94.8 fl (80.0-96.0); MONO # 0.7 10^3/uL (0.0-0.8); MONO % 7.7 % (0.0-5.0); NEUTROPHILS # 6.9 10^3/uL (1.5-8.5); NEUTROPHILS % 74.9 % (36.0-66.0); PLATELET COUNT, AUTOMATED 366 10^3/uL (150-450); RED BLOOD COUNT 2.87 10^6/uL (4.30-6.10); WHITE BLOOD COUNT 9.3 10^3/uL (4.0-10.0)
[2019-07-13 06:00] VITALS: BP 150/69
[2019-07-13 06:15] LABS: ALBUMIN 1.5 GM/DL (3.2-5.2); ALT/SGPT 10 U/L (12-78); BILIRUBIN,TOTAL 0.2 MG/DL (0.2-1.0); BLOOD UREA NITROGEN 25 MG/DL (7-18); CALCIUM LEVEL 7.8 MG/DL (8.8-10.2); CARBON DIOXIDE LEVEL 27 MEQ/L (21-32); CHLORIDE LEVEL 109 MEQ/L (98-107); CREATININE FOR GFR 0.92 MG/DL (0.70-1.30); GLOMERULAR FILTRATION RATE > 60.0 (>35); GLUCOSE, FASTING 69 MG/DL (70-100); POTASSIUM SERUM 3.6 MEQ/L (3.5-5.1); SODIUM LEVEL 141 MEQ/L (136-145); TOTAL PROTEIN 5.3 GM/DL (6.4-8.2)
[2019-07-13] MEDS: VANCOMYCIN HCL 1,000 MG, VIAL MATE ADAPTER 1 EACH in D5W 250 ML IV SCH (06:43)
[2019-07-13] MEDS: CETIRIZINE (ZyrTEC) 10 MG TAB PO SCH (09:06)
[2019-07-13] MEDS: ENOXAPARIN 30MG/0.3ML SYRINGE (J1650 PER 10MG) SC SCH (09:06)
[2019-07-13] MEDS: NYSTATIN 100,000 UNITS/GM TOPICAL PWD 15 GM TOP SCH ×2 (09:06→20:01)
[2019-07-13 10:00] VITALS: BP 103/52
--- NOTE | 2019-07-13 11:53 | IPNPDOC ---
Subjective Date Seen The patient was seen on 07/13/19. Subjective Chief Complaint/HPI Patient is comfortable in no distress. Offers no new complaints General: Denies: ROS Unobtainable, Chills, Night Sweats, Fatigue, Malaise, Normal Appetite, Other Symptoms Constitutional: Denies: Chills, Fever, Malaise, Night Sweats, Weakness, Fatigue, Weight Loss, Lethargy, Other Pulmonary: Denies: Dyspnea, Cough, Pleuritic Chest Pain, Other Symptoms Cardiovascular: Denies: Chest Pain, Palpitations, Orthopnea, Paroxysmal Noc. Dyspnea, Edema, Lt Headedness, Other Symptoms Gastrointestinal: Denies: Nausea, Vomiting, Abdominal Pain, Diarrhea, Constipation, Melena, Hematochezia, Other Symptoms Endocrine: Denies: Polydipsia, Polyphagia, Polyuria, Heat Intolerance, Cold Intolerance, Other Endocrine Sx Musculoskeletal: Denies: Neck Pain, Back Pain, Shoulder Pain, Arm Pain, Hand Pain, Leg Pain, Foot Pain, Joint Pain, Muscle Pain, Spasms, Other Symptoms Neurological: Denies: Weakness, Numbness, Incoordination, Change in speech, Confusion, Seizures, Other Symptoms Objective Physical Examination General Exam: Positive: Alert, Cooperative Neck Exam: Positive: Supple Chest Exam: Positive: Clear to auscultation, Normal air movement Heart Exam: Positive: Rate Normal, Normal S1, Normal S2 Telemetry: Positive: No significant arrhythmia Abdomen Exam: Positive: Normal bowel sounds, Soft Male Exam: Positive: Normal Genital Exam Extremity Exam: Positive: Normal pulses, Other (. Dressing at the right foot noted) Skin Exam: Positive: Nl turgor and temperature Assessment /Plan Problems (1) Gangrene of toe of right foot Status: Acute Problem Text: Distal dried gangrene, with recent third metatarsal head excision and wound debridement, excisional type, including subcutaneous tissue, tendon and bone 07/10/19. 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 + E. faecalis sensitive to Vancomycin, d/c zosyn. BCx negative Pressure ulcers in bilateral heels. Boots are in place. The patient is Pravin lift and turn every hour. Wound care. Further, as per podiatry recommendations Vascular surgery consult also was called, which is still pending for possible pa rtial foot amputation if the wound does not heal. Tinea present care At[facility]waiting care home placement . (2) HTN (hypertension) Status: Chronic Problem Text: Continue present medications (3) BPH (benign prostatic hyperplasia) Status: Chronic Problem Text: Continue present medications (4) Dementia Status: Chronic Problem Text: Continue present medications Plan/VTE VTE Prophylaxis Ordered?: Yes (lovenox 30 mg daily) VTE Exclusion Mechanical Proph: N/A:VTE Prophy Ordered VTE Exclusion Pharmacological: N/A:VTE Prophy Ordered VS, I&O, 24H, Fishbone Vital Signs/I&O Vital Signs Date Time Temp Pulse Resp B/P (MAP) Pulse Ox O2 Delivery O2 Flow Rate FiO2 07/13/19 10:00 97.0 67 14 103/52 (69) 97 Room Air I&O- Last 24 Hours up to 6 AM 07/13/19 06:00 Intake Total 660 ml Output Total 50 ml Balance 610 ml Laboratory Data 24H LABS Laboratory Tests 2 07/13/19 05:22: Immature Granulocyte % (Auto) 0.8, Neutrophils (%) (Auto) 74.9H, Lymphocytes (%) (Auto) 13.2L, Monocytes (%) (Auto) 7.7H, Eosinophils (%) (Auto) 3.1H, Basophils (%) (Auto) 0.3, Neutrophils # (Auto) 6.9, Lymphocytes # (Auto) 1.2L, Monocytes # (Auto) 0.7, Eosinophils # (Auto) 0.3, Basophils # (Auto) 0.0, Nucleated Red Blood Cells % (auto) 0.0, Anion Gap 5L, Glomerular Filtration Rate > 60.0, Calcium Level 7.8L, Total Bilirubin 0.2, Aspartate Amino Transf (AST/SGOT) 14, Alanine Aminotransferase (ALT/SGPT) 10L, Alkaline Phosphatase 50, Total Protein 5.3L, Albumin 1.5L, Albumin/Globulin Ratio 0.39L CBC/BMP Laboratory Tests 07/13/19 05:22 Microbiology Microbiology 07/10/19 Bacterial Culture - Final, Complete Enterococcus Faecalis 07/09/19 Wound Culture - Final, Complete Enterococcus Faecalis 07/09/19 Blood Culture - Preliminary, Resulted No Growth after 72 hours. All specime... 07/09/19 Blood Culture - Preliminary, Resulted No Growth after 72 hours. All specime... ALVERTO EDDY MD Jul 13, 2019 11:53
[2019-07-13 14:00] VITALS: BP 126/59
--- NOTE | 2019-07-13 14:20 | IPNPDOC ---
Date Seen The patient was seen on 07/13/19. Progress Note Patient seen and examined. Resting quietly in his chair. No complaints. He is relatively unaware that he has significant tissue loss in his foot, and that over time this could become a more serious issue. I had a long discussion on multiple occasions with the patient and his when he was first admitted to the hospital. At that time, the patient due to dementia was pretty much agreeable to anything we suggested, but his was not. She was adamant that there would be no procedures, vascular interventions, amputations, surgical debridements, and thus we offered that we were available should she change her mind. I was reconsulted today on this patient by Dr. Murphy, and we had a long d iscussion about the patient. He said that the patient has undergone fifth fourth and now third toe amputations at the bedside, and the last two were in fairly rapid succession. He feels the patient's tissue is deteriorating, and he does not feel the patient would heal transmetatarsal amputation. From my standpoint, if a transmetatarsal amputation is not an option, there is no point in trying to salvage the foot or the lower leg, nor is there any value in putting the patient through a risky endovascular procedure with his level of dementia and confusion. The patient has distal tibial disease, which can be challenging to revascularize, and frequently any endovascular improvements are short-lived. It can be worthwhile to try and heal a salvageable foot, but in this patient who does not ambulate, and in whom the foot is not salvageable, I would recommend an above-knee amputation. Dr Murphy was agreeable to this, but we both realize that the patient's will not easily agree. I spoke with the patient's at length today. She still has strong views about proceeding with any interventions. Now she seems willing to consider revascularization, but I expressed to her that I felt it was likely too late, and that if we could not salvage the foot, I would not recommend aggressive attempts at revascularization in such a debilitated nonambulatory octogenarian with dementia. We then discussed amputation. I discussed with the patient's that I agree with Dr. Murphy that a transmetatarsal amputation will likely not heal. Since he is nonambulatory, a below-knee amputation is not advisable. My recommendation would be an above-knee amputation, but she is unwilling to even consider this at this time. I expressed to her that currently the foot is stable, and there is no rapidly ascending infection or wet gangrene, but this could change at any time. We may be able to keep the foot stable and definitely with Betadine dressings and IV antibiotics, but this is not a long-term soluti on. I feel at this point, the way to help the patient move forward is within above-knee amputation. She said she was worried about the patient not eating, and I expressed to her that when there is chronic wounds of the foot and legs, they can significantly diminished appetite and cause malaise and fatigue, especially if they are present for many months in such an elderly frail gentleman. But this creates a vicious cycle, because his protein and nutrition are needed for healing, but the lack of appetite causes chronic protein malnutrition which further limits healing. The patient's is a bit defensive about not wanting to do any intervention, and I tried to reassure her many times that none of us would do any intervention without consent and agreement. I also tried to reassure her that at this moment, we do not have an emergent need to pursue amputation. However, at any point, this could change. I discussed with her that in our thinking, it is life over limb. It is possible that if he gets a rapidly ascending infection, it could take his life. She says that she understands this, but for now, she does not want any intervention, and she would like the patient to remain a full code. I discussed with her that we are available to help if she changes her mind, or if she has other questions and would just like to discuss things further. I think it is very hard on her to not be with him here in the hospital, and to not be able to see his condition for herself. I tried to reassure her that we would do everything we can to keep him safe and give her our best advice on how to do so. Incidentally, I also tried to call the patient's son Gregory, but was unable to reach him.For now, no vascular intervention per the 's wishes. We will be happy to provide additional consultation or intervention if desired. We appreciate the opportunity to participate in the care of this patient. VS, I&O, 24H, Fishbone Vital Signs/I&O Vital Signs Date Time Temp Pulse Resp B/P (MAP) Pulse Ox O2 Delivery O2 Flow Rate FiO2 07/13/19 10:00 97.0 67 14 103/52 (69) 97 Room Air I&O- Last 24 Hours up to 6 AM 07/13/19 06:00 Intake Total 660 ml Output Total 50 ml Balance 610 ml Laboratory Data 24H LABS Laboratory Tests 2 07/13/19 05:22: Immature Granulocyte % (Auto) 0.8, Neutrophils (%) (Auto) 74.9H, Lymphocytes (%) (Auto) 13.2L, Monocytes (%) (Auto) 7.7H, Eosinophils (%) (Auto) 3.1H, Basophils (%) (Auto) 0.3, Neutrophils # (Auto) 6.9, Lymphocytes # (Auto) 1.2L, Monocytes # (Auto) 0.7, Eosinophils # (Auto) 0.3, Basophils # (Auto) 0.0, Nucleated Red Blood Cells % (auto) 0.0, Anion Gap 5L, Glomerular Filtration Rate > 60.0, Calcium Level 7.8L, Total Bilirubin 0.2, Aspartate Amino Transf (AST/SGOT) 14, Alanine Aminotransferase (ALT/SGPT) 10L, Alkaline Phosphatase 50, Total Protein 5.3L, Albumin 1.5L, Albumin/Globulin Ratio 0.39L CBC/BMP Laboratory Tests 07/13/19 05:22 Microbiology Microbiology 07/10/19 Bacterial Culture - Final, Complete Enterococcus Faecalis 07/09/19 Wound Culture - Final, Complete Enterococcus Faecalis 07/09/19 Blood Culture - Preliminary, Resulted No Growth after 72 hours. All specime... 07/09/19 Blood Culture - Preliminary, Resulted No Growth after 72 hours. All specime... MARYANNE POPE MD Jul 13, 2019 14:20
[2019-07-13 18:00] VITALS: BP 136/78
[2019-07-13] MEDS: CYANOCOBALAMIN 500 MCG TAB PO SCH (20:01)
[2019-07-13] MEDS: DIVALPROEX 250MG *ER* TAB PO SCH (20:01)
[2019-07-13] MEDS: TAMSULOSIN 0.4 MG CAP PO SCH (20:01)
[2019-07-13] MEDS: VITAMIN D 1,000 INTERNATIONAL UNITS TABLET PO SCH (20:01)
[2019-07-13] MEDS: DONEPEZIL 5 MG TAB PO SCH (20:01)
[2019-07-13 22:00] VITALS: BP 122/66
[2019-07-14] VITALS (8 sets, daily range): BP systolic 117–204; BP diastolic 58–111
[2019-07-14] MEDS ORDERED: lisinopriL 5 MG TAB PO ONE (04:30)
[2019-07-14 06:23] LABS: HEMATOCRIT 28.3 % (42.0-52.0); HEMOGLOBIN 9.2 g/dl (13.5-17.5); MEAN CORPUSCULAR HEMOGLOBIN 31.6 pg (27.0-33.0); MEAN CORPUSCULAR HGB CONC 32.5 g/dl (32.0-36.5); MEAN CORPUSCULAR VOLUME 97.3 fl (80.0-96.0); PLATELET COUNT, AUTOMATED 386 10^3/uL (150-450); RED BLOOD COUNT 2.91 10^6/uL (4.30-6.10); WHITE BLOOD COUNT 9.1 10^3/uL (4.0-10.0)
[2019-07-14 06:42] LABS: BLOOD UREA NITROGEN 21 MG/DL (7-18); CALCIUM LEVEL 8.2 MG/DL (8.8-10.2); CARBON DIOXIDE LEVEL 29 MEQ/L (21-32); CHLORIDE LEVEL 109 MEQ/L (98-107); CREATININE FOR GFR 0.98 MG/DL (0.70-1.30); GLOMERULAR FILTRATION RATE > 60.0 (>35); GLUCOSE, FASTING 81 MG/DL (70-100); POTASSIUM SERUM 3.8 MEQ/L (3.5-5.1); SODIUM LEVEL 142 MEQ/L (136-145); VANCOMYCIN LEVEL TROUGH 14.9 UG/ML (10.0-20.0)
[2019-07-14] MEDS: VANCOMYCIN HCL 1,000 MG, VIAL MATE ADAPTER 1 EACH in D5W 250 ML IV SCH (06:50)
[2019-07-14] MEDS: CETIRIZINE (ZyrTEC) 10 MG TAB PO SCH (10:22)
[2019-07-14] MEDS: ENOXAPARIN 30MG/0.3ML SYRINGE (J1650 PER 10MG) SC SCH (10:23)
[2019-07-14] MEDS: NYSTATIN 100,000 UNITS/GM TOPICAL PWD 15 GM TOP SCH ×2 (10:26→21:19)
--- NOTE | 2019-07-14 10:38 | IPNPDOC ---
Subjective Date Seen The patient was seen on 07/14/19. Subjective Chief Complaint/HPI No new complaints at the present time Constitutional: Denies: Chills, Fever, Malaise, Night Sweats, Weakness, Fatigue, Weight Loss, Lethargy, Other Pulmonary: Denies: Dyspnea, Cough, Pleuritic Chest Pain, Other Symptoms Cardiovascular: Denies: Chest Pain, Palpitations, Orthopnea, Paroxysmal Noc. Dyspnea, Edema, Lt Headedness, Other Symptoms Gastrointestinal: Denies: Nausea, Vomiting, Abdominal Pain, Diarrhea, Constipation, Melena, Hematochezia, Other Symptoms Genitourinary: Denies: Dysuria, Frequency, Incontinence, Hematuria, Retention, Other Symptoms Hematologic: Denies: Bruising, Bleeding Excessively, Petecchia, Purpura, Enlarged Lymph Nodes, Other Hematologic Endocrine: Denies: Polydipsia, Polyphagia, Polyuria, Heat Intolerance, Cold Intolerance, Other Endocrine Sx Musculoskeletal: Denies: Neck Pain, Back Pain, Shoulder Pain, Arm Pain, Hand Pain, Leg Pain, Foot Pain, Joint Pain, Muscle Pain, Spasms, Other Symptoms Neurological: Denies: Weakness, Numbness, Incoordination, Change in speech, Confusion, Seizures, Other Symptoms Objective Physical Examination General Exam: Positive: Alert, Cooperative ENT Exam: Positive: Atraumatic, Mucous membr. moist/pink Neck Exam: Positive: Supple Chest Exam: Positive: Clear to auscultation, Normal air movement Heart Exam: Positive: Rate Normal, Normal S1, Normal S2 Telemetry: Positive: No significant arrhythmia Abdomen Exam: Positive: Normal bowel sounds, Soft Male Exam: Positive: Normal Genital Exam Extremity Exam: Positive: Normal pulses, Other (. Dressing at the right foot noted) Skin Exam: Positive: Nl turgor and temperature Assessment /Plan Problems (1) Gangrene of toe of right foot Status: Acute Problem Text: Distal dried gangrene, with recent third metatarsal head excision and wound debridement, excisional type, including subcutaneous tissue, tendon and bone 07/10/19. 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 + E. faecalis sensitive to Vancomycin, d/c zosyn. BCx negative Pressure ulcers in bilateral heels. Boots are in place. The patient is Pravin lift and turn every hour. Wound care. Further, as per podiatry recommendations Vascular surgery consult also was called, which is still pending for possible partial foot amputation if the wound does not heal. Tinea present care Awaiting placement . (2) HTN (hypertension) Status: Chronic Problem Text: Continue present medications (3) BPH (benign prostatic hyperplasia) Status: Chronic Problem Text: Continue present medications (4) Dementia Status: Chronic Problem Text: Continue present medications Plan/VTE VTE Prophylaxis Ordered?: Yes (lovenox 30 mg daily) VTE Exclusion Mechanical Proph: N/A:VTE Prophy Ordered VTE Exclusion Pharmacological: N/A:VTE Prophy Ordered VS, I&O, 24H, Fishbone Vital Signs/I&O Vital Signs Date Time Temp Pulse Resp B/P (MAP) Pulse Ox O2 Delivery O2 Flow Rate FiO2 07/14/19 10:00 98.6 49 14 138/58 (84) 96 Room Air I&O- Last 24 Hours up to 6 AM 07/14/19 06:00 Intake Total 790 ml Balance 790 ml Laboratory Data 24H LABS Laboratory Tests 2 07/14/19 05:55: Nucleated Red Blood Cells % (auto) 0.0 07/14/19 05:58: Anion Gap 4L, Glomerular Filtration Rate > 60.0, Calcium Level 8.2L, Vancomycin Level Trough 14.9 CBC/BMP Laboratory Tests 07/14/19 05:55 07/14/19 05:58 Microbiology Microbiology 07/10/19 Bacterial Culture - Final, Complete Enterococcus Faecalis 07/09/19 Wound Culture - Final, Complete Enterococcus Faecalis 07/09/19 Blood Culture - Final, Complete NO GROWTH AFTER 5 DAYS 07/09/19 Blood Culture - Final, Complete NO GROWTH AFTER 5 DAYS ALVERTO EDDY MD Jul 14, 2019 10:38
[2019-07-14] MEDS: DIVALPROEX 250MG *ER* TAB PO SCH (21:18)
[2019-07-14] MEDS: TAMSULOSIN 0.4 MG CAP PO SCH (21:19)
[2019-07-14] MEDS: VITAMIN D 1,000 INTERNATIONAL UNITS TABLET PO SCH (21:19)
[2019-07-14] MEDS: DONEPEZIL 5 MG TAB PO SCH (21:19)
[2019-07-14] MEDS: CYANOCOBALAMIN 500 MCG TAB PO SCH (21:19)
[2019-07-15] VITALS (7 sets, daily range): BP systolic 86–196; BP diastolic 46–74
[2019-07-15] MEDS: VANCOMYCIN HCL 1,000 MG, VIAL MATE ADAPTER 1 EACH in D5W 250 ML IV SCH (07:06)
[2019-07-15] MEDS: CETIRIZINE (ZyrTEC) 10 MG TAB PO SCH (09:29)
[2019-07-15] MEDS: ENOXAPARIN 30MG/0.3ML SYRINGE (J1650 PER 10MG) SC SCH (09:30)
[2019-07-15] MEDS: NYSTATIN 100,000 UNITS/GM TOPICAL PWD 15 GM TOP SCH ×2 (09:30→20:27)
--- NOTE | 2019-07-15 11:05 | IPNPDOC ---
Subjective Date Seen The patient was seen on 07/15/19. Subjective Chief Complaint/HPI No new complaints at the present time General: Denies: ROS Unobtainable, Chills, Night Sweats, Fatigue, Malaise, Normal Appetite, Other Symptoms Constitutional: Denies: Chills, Fever, Malaise, Night Sweats, Weakness, Fatigue, Weight Loss, Lethargy, Other Pulmonary: Denies: Dyspnea, Cough, Pleuritic Chest Pain, Other Symptoms Cardiovascular: Denies: Chest Pain, Palpitations, Orthopnea, Paroxysmal Noc. Dyspnea, Edema, Lt Headedness, Other Symptoms Gastrointestinal: Denies: Nausea, Vomiting, Abdominal Pain, Diarrhea, Constipation, Melena, Hematochezia, Other Symptoms Endocrine: Denies: Polydipsia, Polyphagia, Polyuria, Heat Intolerance, Cold Intolerance, Other Endocrine Sx Musculoskeletal: Denies: Neck Pain, Back Pain, Shoulder Pain, Arm Pain, Hand Pain, Leg Pain, Foot Pain, Joint Pain, Muscle Pain, Spasms, Other Symptoms Objective Physical Examination General Exam: Positive: Alert, Cooperative ENT Exam: Positive: Atraumatic, Mucous membr. moist/pink Neck Exam: Positive: Supple Chest Exam: Positive: Clear to auscultation, Normal air movement Heart Exam: Positive: Rate Normal, Normal S1, Normal S2 Telemetry: Positive: No significant arrhythmia Abdomen Exam: Positive: Normal bowel sounds, Soft Male Exam: Positive: Normal Genital Exam Extremity Exam: Positive: Normal pulses, Other (. Dressing at the right foot noted) Skin Exam: Positive: Nl turgor and temperature Assessment /Plan Problems (1) Gangrene of toe of right foot Status: Acute Problem Text: Distal dried gangrene, with recent third metatarsal head excision and wound debridement, excisional type, including subcutaneous tissue, tendon and bone 07/10/19. 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 + E. faecalis sensitive to Vancomycin, d/c zosyn. BCx negative Pressure ulcers in bilateral heels. Boots are in place. The patient is Pravin lift and turn every hour. Wound care. Further, as per podiatry recommendations Vascular surgery consult also was called, which is still pending for possible partial foot amputation if the wound does not heal. Awaiting placement. Discussed with the social work and case management on a routine basis . (2) HTN (hypertension) Status: Chronic Problem Text: Continue present medications (3) BPH (benign prostatic hyperplasia) Status: Chronic Problem Text: Continue present medications (4) Dementia Status: Chronic Problem Text: Continue present medications Plan/VTE VTE Prophylaxis Ordered?: Yes (lovenox 30 mg daily) VTE Exclusion Mechanical Proph: N/A:VTE Prophy Ordered VTE Exclusion Pharmacological: N/A:VTE Prophy Ordered VS, I&O, 24H, Fishbone Vital Signs/I&O Vital Signs Date Time Temp Pulse Resp B/P (MAP) Pulse Ox O2 Delivery O2 Flow Rate FiO2 07/15/19 10:00 96.4 63 19 86/46 (59) 92 Room Air I&O- Last 24 Hours up to 6 AM 07/15/19 06:00 Intake Total 600 ml Balance 600 ml Laboratory Data 24H LABS Laboratory Tests 2 07/15/19 06:10: Vancomycin Level Trough 16.8 Microbiology Microbiology 07/10/19 Bacterial Culture - Final, Complete Enterococcus Faecalis 07/09/19 Wound Culture - Final, Complete Enterococcus Faecalis 07/09/19 Blood Culture - Final, Complete NO GROWTH AFTER 5 DAYS 07/09/19 Blood Culture - Final, Complete NO GROWTH AFTER 5 DAYS ALVERTO EDDY MD Jul 15, 2019 11:05
--- NOTE | 2019-07-15 12:22 | IPN ---
DATE OF SERVICE: 07/15/2019 The patient is seen and examined. Wound is inspected. There is no longer any erythema or purulence noted in the wound. There remains some dried gangrene at the more proximal aspect of the wound. The third toe at this time remains fairly well perfused and the incision margins have decent blood flow to them. ASSESSMENT: 83-year-old male with peripheral vascular disease and osteomyelitis, status post amputations. PLAN: At this time, we will continue wound care as presently ordered. The wound is not likely to fully heal given his advanced peripheral vascular disease. Discussed with Dr. Jolly. He is really not a great candidate for any vascular intervention. I do not believe that he would heal a transmetatarsal amputation well, given that he is nonambulatory. If the gangrene continued to progress, he would probably ultimately be best served with above knee amputation. At this time, it is not necessary, as the wound is stable and the infection for now has been resolved, but given history and poor blood flow, it is likely that eventually further spread may happen with enough time. For now, our best bet is to keep it as clean as possible. We will plan any further intervention if necessary if the foot worsens.
[2019-07-15] MEDS: VITAMIN D 1,000 INTERNATIONAL UNITS TABLET PO SCH (20:27)
[2019-07-15] MEDS: DIVALPROEX 250MG *ER* TAB PO SCH (20:27)
[2019-07-15] MEDS: DONEPEZIL 5 MG TAB PO SCH (20:27)
[2019-07-15] MEDS: TAMSULOSIN 0.4 MG CAP PO SCH (20:27)
[2019-07-15] MEDS: CYANOCOBALAMIN 500 MCG TAB PO SCH (20:27)
[2019-07-15] MEDS: lisinopriL 5 MG TAB PO SCH (21:59)
[2019-07-16 02:00] VITALS: BP 178/74
[2019-07-16 06:00] VITALS: BP 169/71
[2019-07-16 06:38] LABS: BLOOD UREA NITROGEN 19 MG/DL (7-18); CARBON DIOXIDE LEVEL 27 MEQ/L (21-32); CHLORIDE LEVEL 105 MEQ/L (98-107); CREATININE FOR GFR 1.01 MG/DL (0.70-1.30); GLOMERULAR FILTRATION RATE > 60.0 (>35); GLUCOSE, FASTING 76 MG/DL (70-100); SODIUM LEVEL 138 MEQ/L (136-145); VANCOMYCIN LEVEL TROUGH 20.2 UG/ML (10.0-20.0)
[2019-07-16] MEDS: ENOXAPARIN 30MG/0.3ML SYRINGE (J1650 PER 10MG) SC SCH (09:59)
[2019-07-16] MEDS: CETIRIZINE (ZyrTEC) 10 MG TAB PO SCH (09:59)
[2019-07-16 10:00] VITALS: BP 135/76
[2019-07-16] MEDS: VANCOMYCIN HCL 750 MG, VIAL MATE ADAPTER 1 EACH in D5W 250 ML IV SCH (10:00)
[2019-07-16] MEDS: NYSTATIN 100,000 UNITS/GM TOPICAL PWD 15 GM TOP SCH ×2 (10:00→20:25)
--- NOTE | 2019-07-16 12:14 | IPNPDOC ---
Subjective Date Seen The patient was seen on 07/16/19. Subjective Chief Complaint/HPI No new complaints General: Denies: ROS Unobtainable, Chills, Night Sweats, Fatigue, Malaise, Normal Appetite, Other Symptoms Constitutional: Denies: Chills, Fever, Malaise, Night Sweats, Weakness, Fati yoko, Weight Loss, Lethargy, Other Pulmonary: Denies: Dyspnea, Cough, Pleuritic Chest Pain, Other Symptoms Cardiovascular: Denies: Chest Pain, Palpitations, Orthopnea, Paroxysmal Noc. Dyspnea, Edema, Lt Headedness, Other Symptoms Gastrointestinal: Denies: Nausea, Vomiting, Abdominal Pain, Diarrhea, Constipation, Melena, Hematochezia, Other Symptoms Musculoskeletal: Denies: Neck Pain, Back Pain, Shoulder Pain, Arm Pain, Hand Pain, Leg Pain, Foot Pain, Joint Pain, Muscle Pain, Spasms, Other Symptoms Neurological: Denies: Weakness, Numbness, Incoordination, Change in speech, Confusion, Seizures, Other Symptoms Psych: Denies: Mood Normal, Anxiety, Depression, Memory Issues, Thoughts of Self Harm, Anger, Thoughts of Harming Other, Other Psych Objective Physical Examination ENT Exam: Positive: Atraumatic, Mucous membr. moist/pink Neck Exam: Positive: Supple Chest Exam: Positive: Clear to auscultation, Normal air movement Heart Exam: Positive: Rate Normal, Normal S1, Normal S2 Telemetry: Positive: No significant arrhythmia Abdomen Exam: Positive: Normal bowel sounds, Soft Male Exam: Positive: Normal Genital Exam Extremity Exam: Positive: Normal pulses, Other (. Dressing at the right foot noted) Skin Exam: Positive: Nl turgor and temperature Assessment /Plan Problems (1) Gangrene of toe of right foot Status: Acute Problem Text: Distal dried gangrene, with recent third metatarsal head excision and wound debridement, excisional type, including subcutaneous tissue, tendon and bone 07/10/19. 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 + E. faecalis sensitive to Vancomycin, d/c zosyn. BCx negative Pressure ulcers in bilateral heels. Boots are in place. The patient is Pravin lift and turn every hour. Wound care. Podiatry follow-up appreciated. Patient will eventually need below-knee amputation at some point Continue present care and wound care as per orders by podiatry As per vascular surgery. Patient is not a surgical candidate Awaiting placement. Discussed with the social work and case management on a routine basis . (2) HTN (hypertension) Status: Chronic Problem Text: Continue present medications (3) BPH (benign prostatic hyperplasia) Status: Chronic Problem Text: Continue present medications (4) Dementia Status: Chronic Problem Text: Continue present medications Plan/VTE VTE Prophylaxis Ordered?: Yes (lovenox 30 mg daily) VTE Exclusion Mechanical Proph: N/A:VTE Prophy Ordered VTE Exclusion Pharmacological: N/A:VTE Prophy Ordered VS, I&O, 24H, Fishbone Vital Signs/I&O Vital Signs Date Time Temp Pulse Resp B/P (MAP) Pulse Ox O2 Delivery O2 Flow Rate FiO2 07/16/19 10:00 97.2 81 17 135/76 (95) 96 Room Air I&O- Last 24 Hours up to 6 AM 07/16/19 06:00 Intake Total 1670 ml Balance 1670 ml Laboratory Data 24H LABS Laboratory Tests 2 07/16/19 05:58: Anion Gap 6L, Glomerular Filtration Rate > 60.0, Calcium Level 8.0L, Vancomycin Level Trough 20.2H CBC/BMP Laboratory Tests 07/16/19 05:58 Microbiology Microbiology 07/10/19 Bacterial Culture - Final, Complete Enterococcus Faecalis 07/09/19 Wound Culture - Final, Complete Enterococcus Faecalis 07/09/19 Blood Culture - Final, Complete NO GROWTH AFTER 5 DAYS 07/09/19 Blood Culture - Final, Complete NO GROWTH AFTER 5 DAYS ALVERTO EDDY MD Jul 16, 2019 12:14
[2019-07-16 14:00] VITALS: BP 134/69
[2019-07-16 18:00] VITALS: BP 127/59
[2019-07-16] MEDS: DONEPEZIL 5 MG TAB PO SCH (20:24)
[2019-07-16] MEDS: VITAMIN D 1,000 INTERNATIONAL UNITS TABLET PO SCH (20:24)
[2019-07-16] MEDS: CYANOCOBALAMIN 500 MCG TAB PO SCH (20:24)
[2019-07-16] MEDS: DIVALPROEX 250MG *ER* TAB PO SCH (20:25)
[2019-07-16] MEDS: lisinopriL 5 MG TAB PO SCH (20:25)
[2019-07-16] MEDS: TAMSULOSIN 0.4 MG CAP PO SCH (20:25)
[2019-07-16 22:00] VITALS: BP 132/59
[2019-07-17 02:00] VITALS: BP 128/63
[2019-07-17 06:00] VITALS: BP 131/60
[2019-07-17] MEDS: CETIRIZINE (ZyrTEC) 10 MG TAB PO SCH (09:59)
[2019-07-17 10:00] VITALS: BP 133/59
[2019-07-17] MEDS: ENOXAPARIN 30MG/0.3ML SYRINGE (J1650 PER 10MG) SC SCH (10:00)
[2019-07-17] MEDS: VANCOMYCIN HCL 750 MG, VIAL MATE ADAPTER 1 EACH in D5W 250 ML IV SCH (10:00)
--- NOTE | 2019-07-17 10:09 | PHACANCOPD ---
PHARMACY VANCOMYCIN DOSING Pt Demographics Demographics Patient Age:83 , Weight:50.000 , Gender: male Adjusted Body Weight Date: 02/12/19, Adjusted Body Weight: [50] Kg(ACTUAL) Vancomycin Vancomycin indication: GANGRENE TOES Vancomycin Target Ranges: 15-20 mcg/ml Vancomycin Load Y/N: No Load Dose Date Time Vancomycin Load Dose: 1250 MG Date: 04/29/19 Time:1600 Vancomycin Dose Date: Date: 07/17/19. Current Vancomycin Dose: [750MG IV Q24H] . Current Vancomycin Dose: [750 MG IV Q24H] Intermittent Dosing?: No Labs Labs Item Value Date Time White Blood Count 8.6 10^3/uL 07/12/19 0544 White Blood Count 9.3 10^3/uL 07/13/19 0522 White Blood Count 9.1 10^3/uL 07/14/19 0555 Creatinine 0.92 MG/DL 07/13/19 0522 Creatinine 0.98 MG/DL 07/14/19 0558 Creatinine 1.01 MG/DL 07/16/19 0558 Vancomycin Level Trough 16.8 UG/ML 07/15/19 0610 Vancomycin Level Trough 20.2 UG/ML H 07/16/19 0558 Vancomycin Level Trough 18.5 UG/ML 07/17/19 0916 Micro Microbiology 07/10/19 Bacterial Culture - Final, Complete Enterococcus Faecalis 07/09/19 Wound Culture - Final, Complete Enterococcus Faecalis 07/09/19 Blood Culture - Final, Complete NO GROWTH AFTER 5 DAYS 07/09/19 Blood Culture - Final, Complete NO GROWTH AFTER 5 DAYS Creatinine Clearance Assessment and Plan Maintaining Current Dose?: Yes Reason for dose change: No Dose Change Pharmacist Note Pharmacist Note Date: 07/17/19. Pharmacist note:Vancomycin trough came back at 18.5mcg/ml. We will continue 750mg iV every 24 hours. We will continue to monitor and adjust the dose as needed. Date: 04/29/19. Pharmacist note: Pharmacy consulted for Vancomycin dosing with a goal trough of 15-20 mcg/ml. Patient does have a history of Vanco here at [facility], we'll load him with 1250 mg and follow with 750 mg IV q24h. Pharmacy will continue to monitor and make adjustments as needed. [facility] Jul 17, 2019 10:09
[2019-07-17] MEDS: NYSTATIN 100,000 UNITS/GM TOPICAL PWD 15 GM TOP SCH ×2 (10:30→21:12)
[2019-07-17 14:00] VITALS: BP 124/53
[2019-07-17 18:00] VITALS: BP 138/61
[2019-07-17] MEDS: VITAMIN D 1,000 INTERNATIONAL UNITS TABLET PO SCH (21:12)
[2019-07-17] MEDS: CYANOCOBALAMIN 500 MCG TAB PO SCH (21:12)
[2019-07-17] MEDS: DONEPEZIL 5 MG TAB PO SCH (21:12)
[2019-07-17] MEDS: DIVALPROEX 250MG *ER* TAB PO SCH (21:13)
[2019-07-17] MEDS: TAMSULOSIN 0.4 MG CAP PO SCH (21:13)
[2019-07-17] MEDS: lisinopriL 5 MG TAB PO SCH (21:13)
[2019-07-17 22:00] VITALS: BP 138/53
[2019-07-18 06:00] VITALS: BP 160/54
[2019-07-18] MEDS: ENOXAPARIN 30MG/0.3ML SYRINGE (J1650 PER 10MG) SC SCH (09:00)
[2019-07-18] MEDS: CETIRIZINE (ZyrTEC) 10 MG TAB PO SCH (09:00)
[2019-07-18] MEDS: NYSTATIN 100,000 UNITS/GM TOPICAL PWD 15 GM TOP SCH ×2 (09:37→22:40)
--- NOTE | 2019-07-18 09:45 | IPNPDOC ---
Subjective Date Seen The patient was seen on 07/18/19. Subjective Chief Complaint/HPI Patient comfortable in no distress. Offers no new complaints General: Denies: ROS Unobtainable, Chills, Night Sweats, Fatigue, Malaise, Normal Appetite, Other Symptoms Pulmonary: Denies: Dyspnea, Cough, Pleuritic Chest Pain, Other Symptoms Cardiovascular: Denies: Chest Pain, Palpitations, Orthopnea, Paroxysmal Noc. Dyspnea, Edema, Lt Headedness, Other Symptoms Gastrointestinal: Denies: Nausea, Vomiting, Abdominal Pain, Diarrhea, Constipation, Melena, Hematochezia, Other Symptoms Musculoskeletal: Denies: Neck Pain, Back Pain, Shoulder Pain, Arm Pain, Hand Pain, Leg Pain, Foot Pain, Joint Pain, Muscle Pain, Spasms, Other Symptoms Neurological: Denies: Weakness, Numbness, Incoordination, Change in speech, Confusion, Seizures, Other Symptoms Objective Physical Examination ENT Exam: Positive: Atraumatic, Mucous membr. moist/pink Neck Exam: Positive: Supple Chest Exam: Positive: Clear to auscultation, Normal air movement Heart Exam: Positive: Rate Normal, Normal S1, Normal S2 Telemetry: Positive: No significant arrhythmia Abdomen Exam: Positive: Normal bowel sounds, Soft Male Exam: Positive: Normal Genital Exam Extremity Exam: Positive: Normal pulses, Other (. Dressing at the right foot noted) Skin Exam: Positive: Nl turgor and temperature Assessment /Plan Problems (1) Gangrene of toe of right foot Status: Acute Problem Text: Distal dried gangrene, with recent third metatarsal head excision and wound debridement, excisional type, including subcutaneous tissue, tendon and bone 07/10/19. 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 + E. faecalis sensitive to Vancomycin, d/c zosyn. BCx negative Pressure ulcers in bilateral heels. Boots are in place. The patient is Pravin lift and turn every hour. Wound care. Podiatry follow-up appreciated. Patient will eventually need below-knee amputation at some point Continue present care and wound care as per orders by podiatry As per vascular surgery. Patient is not a surgical candidate Awaiting placement. Discussed with the social work and case management on a routine basis A.m. laboratory work has been ordered. Will follow once available . (2) HTN (hypertension) Status: Chronic Problem Text: Continue present medications (3) BPH (benign prostatic hyperplasia) Status: Chronic Problem Text: Continue present medications (4) Dementia Status: Chronic Problem Text: Continue present medications Plan/VTE VTE Prophylaxis Ordered?: Yes (lovenox 30 mg daily) VTE Exclusion Mechanical Proph: N/A:VTE Prophy Ordered VTE Exclusion Pharmacological: N/A:VTE Prophy Ordered VS, I&O, 24H, Fishbone Vital Signs/I&O Vital Signs Date Time Temp Pulse Resp B/P (MAP) Pulse Ox O2 Delivery O2 Flow Rate FiO2 07/18/19 06:00 98.0 56 18 160/54 (89) 96 07/17/19 18:00 Room Air I&O- Last 24 Hours up to 6 AM 07/18/19 06:00 Intake Total 930 ml Output Total 0 ml Balance 930 ml Laboratory Data Microbiology Microbiology 07/10/19 Bacterial Culture - Final, Complete Enterococcus Faecalis 07/09/19 Wound Culture - Final, Complete Enterococcus Faecalis 07/09/19 Blood Culture - Final, Complete NO GROWTH AFTER 5 DAYS 07/09/19 Blood Culture - Final, Complete NO GROWTH AFTER 5 DAYS ALVERTO EDDY MD Jul 18, 2019 09:45
[2019-07-18] MEDS: VANCOMYCIN HCL 750 MG, VIAL MATE ADAPTER 1 EACH in D5W 250 ML IV SCH (09:57)
[2019-07-18 10:00] VITALS: BP 102/50
[2019-07-18 14:00] VITALS: BP 140/52
[2019-07-18 18:00] VITALS: BP 136/60
[2019-07-18 22:00] VITALS: BP 129/59
[2019-07-18] MEDS: lisinopriL 5 MG TAB PO SCH (22:39)
[2019-07-18] MEDS: VITAMIN D 1,000 INTERNATIONAL UNITS TABLET PO SCH (22:39)
[2019-07-18] MEDS: CYANOCOBALAMIN 500 MCG TAB PO SCH (22:39)
[2019-07-18] MEDS: DIVALPROEX 250MG *ER* TAB PO SCH (22:39)
[2019-07-18] MEDS: TAMSULOSIN 0.4 MG CAP PO SCH (22:39)
[2019-07-18] MEDS: DONEPEZIL 5 MG TAB PO SCH (22:39)
[2019-07-19 06:00] VITALS: BP 172/70
[2019-07-19 06:02] LABS: BASO % 0.5 % (0.0-1.0); EOS # 0.3 10^3/uL (0.0-0.5); HEMATOCRIT 29.7 % (42.0-52.0); HEMOGLOBIN 9.7 g/dl (13.5-17.5); LYMPH # 1.5 10^3/uL (1.5-5.0); LYMPH % 18.6 % (24.0-44.0); MEAN CORPUSCULAR HEMOGLOBIN 31.3 pg (27.0-33.0); MEAN CORPUSCULAR HGB CONC 32.7 g/dl (32.0-36.5); MEAN CORPUSCULAR VOLUME 95.8 fl (80.0-96.0); MONO % 11.7 % (0.0-5.0); NEUTROPHILS # 5.3 10^3/uL (1.5-8.5); NEUTROPHILS % 64.2 % (36.0-66.0); PLATELET COUNT, AUTOMATED 406 10^3/uL (150-450); WHITE BLOOD COUNT 8.2 10^3/uL (4.0-10.0)
[2019-07-19 06:19] LABS: ALBUMIN 1.8 GM/DL (3.2-5.2); ALT/SGPT 12 U/L (12-78); BILIRUBIN,TOTAL 0.2 MG/DL (0.2-1.0); BLOOD UREA NITROGEN 20 MG/DL (7-18); CALCIUM LEVEL 8.4 MG/DL (8.8-10.2); CARBON DIOXIDE LEVEL 28 MEQ/L (21-32); CHLORIDE LEVEL 107 MEQ/L (98-107); CREATININE FOR GFR 1.12 MG/DL (0.70-1.30); GLOMERULAR FILTRATION RATE > 60.0 (>35); GLUCOSE, FASTING 77 MG/DL (70-100); POTASSIUM SERUM 4.5 MEQ/L (3.5-5.1); SODIUM LEVEL 141 MEQ/L (136-145); TOTAL PROTEIN 6.2 GM/DL (6.4-8.2)
[2019-07-19] MEDS ORDERED: amLODIPine 10 MG TAB PO ONE (06:30)
--- NOTE | 2019-07-19 09:42 | PHACANCOPD ---
PHARMACY VANCOMYCIN DOSING Pt Demographics Demographics Patient Age:83 , Weight:50.000 , Gender: male Adjusted Body Weight Date: 02/12/19, Adjusted Body Weight: [50] Kg(ACTUAL) Vancomycin Vancomycin indication: GANGRENE TOES Vancomycin Target Ranges: 15-20 mcg/ml Vancomycin Load Y/N: No Load Dose Date Time Vancomycin Load Dose: 1250 MG Date: 04/29/19 Time:1600 Vancomycin Dose Date: Date: 07/17/19. Current Vancomycin Dose: [750MG IV Q24H] . Current Vancomycin Dose: [750 MG IV Q24H] Intermittent Dosing?: No Labs Micro Microbiology 07/10/19 Bacterial Culture - Final, Complete Enterococcus Faecalis 07/09/19 Wound Culture - Final, Complete Enterococcus Faecalis 07/09/19 Blood Culture - Final, Complete NO GROWTH AFTER 5 DAYS 07/09/19 Blood Culture - Final, Complete NO GROWTH AFTER 5 DAYS Creatinine Clearance Assessment and Plan Maintaining Current Dose?: No Reason for dose change: Trough too high Pharmacist Note Pharmacist Note Date: 07/19/19. Pharmacist note: Vancomyin trough came back @ 23.1 mcg/ml. We'll change to 500 mg IV every 24 hours @ noon. Pharmacy will continue to monitor and make adjustments as needed. Date: 07/17/19. Pharmacist note:Vancomycin trough came back at 18.5mcg/ml. We will continue 750mg iV every 24 hours. We will continue to monitor and adjust the dose as needed. Date: 04/29/19. Pharmacist note: Pharmacy consulted for Vancomycin dosing with a goal trough of 15-20 mcg/ml. Patient does have a history of Vanco here at [facility], we'll load him with 1250 mg and follow with 750 mg IV q24h. Pharmacy will continue to monitor and make adjustments as needed. [facility] Jul 19, 2019 09:42
[2019-07-19 10:00] VITALS: BP 119/48
[2019-07-19] MEDS: CETIRIZINE (ZyrTEC) 10 MG TAB PO SCH (10:34)
[2019-07-19] MEDS: NYSTATIN 100,000 UNITS/GM TOPICAL PWD 15 GM TOP SCH ×2 (10:34→20:52)
[2019-07-19] MEDS: ENOXAPARIN 30MG/0.3ML SYRINGE (J1650 PER 10MG) SC SCH (10:34)
--- NOTE | 2019-07-19 10:55 | IPNPDOC ---
Subjective Date Seen The patient was seen on 07/19/19. Subjective Chief Complaint/HPI No new complaints. Patient comfortable in no distress Constitutional: Denies: Chills, Fever, Malaise, Night Sweats, Weakness, Fatigue, Weight Loss, Lethargy, Other Pulmonary: Denies: Dyspnea, Cough, Pleuritic Chest Pain, Other Symptoms Cardiovascular: Denies: Chest Pain, Palpitations, Orthopnea, Paroxysmal Noc. Dyspnea, Edema, Lt Headedness, Other Symptoms Gastrointestinal: Denies: Nausea, Vomiting, Abdominal Pain, Diarrhea, Constipation, Melena, Hematochezia, Other Symptoms Musculoskeletal: Denies: Neck Pain, Back Pain, Shoulder Pain, Arm Pain, Hand Pain, Leg Pain, Foot Pain, Joint Pain, Muscle Pain, Spasms, Other Symptoms Neurological: Denies: Weakness, Numbness, Incoordination, Change in speech, Confusion, Seizures, Other Symptoms Objective Physical Examination ENT Exam: Positive: Atraumatic, Mucous membr. moist/pink Neck Exam: Positive: Supple Chest Exam: Positive: Clear to auscultation, Normal air movement Heart Exam: Positive: Rate Normal, Normal S1, Normal S2 Telemetry: Positive: No significant arrhythmia Abdomen Exam: Positive: Normal bowel sounds, Soft Male Exam: Positive: Normal Genital Exam Extremity Exam: Positive: Normal pulses, Other (. Dressing at the right foot noted) Skin Exam: Positive: Nl turgor and temperature Assessment /Plan Problems (1) Gangrene of toe of right foot Status: Acute Problem Text: Distal dried gangrene, with recent third metatarsal head excision and wound debridement, excisional type, including subcutaneous tissue, tendon and bone 07/10/19. 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 + E. faecalis sensitive to Vancomycin, d/c zosyn. BCx negative Pressure ulcers in bilateral heels. Boots are in place. The patient is Pravin lift and turn every hour. Wound care. Podiatry follow-up appreciated. Patient will eventually need below-knee ampu tation at some point Continue present care and wound care as per orders by podiatry As per vascular surgery. Patient is not a surgical candidate Patient's placement is pending. [facility] once bed available Patient's meds were renewed today (2) HTN (hypertension) Status: Chronic Problem Text: Continue present medications (3) BPH (benign prostatic hyperplasia) Status: Chronic Problem Text: Continue present medications (4) Dementia Status: Chronic Problem Text: Continue present medications Plan/VTE VTE Prophylaxis Ordered?: Yes (lovenox 30 mg daily) VTE Exclusion Mechanical Proph: N/A:VTE Prophy Ordered VTE Exclusion Pharmacological: N/A:VTE Prophy Ordered VS, I&O, 24H, Fishbone Vital Signs/I&O Vital Signs Date Time Temp Pulse Resp B/P (MAP) Pulse Ox O2 Delivery O2 Flow Rate FiO2 07/19/19 10:00 97.2 69 18 119/48 (71) 96 07/18/19 18:00 Room Air I&O- Last 24 Hours up to 6 AM 07/19/19 06:00 Intake Total 1115 ml Output Total 0 ml Balance 1115 ml Laboratory Data 24H LABS Laboratory Tests 2 07/19/19 05:35: Immature Granulocyte % (Auto) 1.0, Neutrophils (%) (Auto) 64.2, Lymphocytes (%) (Auto) 18.6L, Monocytes (%) (Auto) 11.7H, Eosinophils (%) (Auto) 4.0H, Basophils (%) (Auto) 0.5, Neutrophils # (Auto) 5.3, Lymphocytes # (Auto) 1.5, Monocytes # (Auto) 1.0H, Eosinophils # (Auto) 0.3, Basophils # (Auto) 0.0, Nucleated Red Blood Cells % (auto) 0.0, Anion Gap 6L, Glomerular Filtration Rate > 60.0, Calcium Level 8.4L, Total Bilirubin 0.2, Aspartate Amino Transf (AST/SGOT) 15, Alanine Aminotransferase (ALT/SGPT) 12, Alkaline Phosphatase 63, Total Protein 6.2L, Albumin 1.8L, Albumin/Globulin Ratio 0.41L 07/19/19 08:51: Vancomycin Level Trough 23.1H CBC/BMP Laboratory Tests 07/19/19 05:35 Microbiology Microbiology 07/10/19 Bacterial Culture - Final, Complete Enterococcus Faecalis 07/09/19 Wound Culture - Final, Complete Enterococcus Faecalis 07/09/19 Blood Culture - Final, Complete NO GROWTH AFTER 5 DAYS 07/09/19 Blood Culture - Final, Complete NO GROWTH AFTER 5 DAYS ALVERTO EDDY MD Jul 19, 2019 10:55
[2019-07-19] MEDS ORDERED: VANCOMYCIN HCL 500 MG in D5W MINI-BAG PLUS 100 ML IV SCH (12:00)
[2019-07-19 14:00] VITALS: BP 102/56
[2019-07-19 18:00] VITALS: BP 110/51
[2019-07-19] MEDS: DIVALPROEX 250MG *ER* TAB PO SCH (20:51)
[2019-07-19] MEDS: CYANOCOBALAMIN 500 MCG TAB PO SCH (20:51)
[2019-07-19] MEDS: TAMSULOSIN 0.4 MG CAP PO SCH (20:51)
[2019-07-19] MEDS: DONEPEZIL 5 MG TAB PO SCH (20:51)
[2019-07-19] MEDS: lisinopriL 5 MG TAB PO SCH (20:51)
[2019-07-19] MEDS: VITAMIN D 1,000 INTERNATIONAL UNITS TABLET PO SCH (20:51)
[2019-07-19 22:00] VITALS: BP 146/63
[2019-07-20] VITALS (7 sets, daily range): BP systolic 85–149; BP diastolic 43–79
[2019-07-20] MEDS: NYSTATIN 100,000 UNITS/GM TOPICAL PWD 15 GM TOP SCH ×2 (09:05→21:25)
[2019-07-20] MEDS: CETIRIZINE (ZyrTEC) 10 MG TAB PO SCH (09:05)
[2019-07-20] MEDS: ENOXAPARIN 30MG/0.3ML SYRINGE (J1650 PER 10MG) SC SCH (09:05)
[2019-07-20 15:28] LABS: C REACTIVE PROTEIN QUANTITATIV 2.48 MG/DL (0.00-0.30)
[2019-07-20] MEDS: AMPICILLIN SOD 2 GM in D5W MINI-BAG PLUS 100 ML IV SCH ×2 (16:15→22:47)
--- NOTE | 2019-07-20 16:15 | IPN ---
DATE: 07/20/2019 INFECTIOUS DISEASE PROGRESS NOTE SUBJECTIVE: Cristian is seen and evaluated this afternoon, laying comfortably in bed. He is asleep but responds to verbal stimulation. He has a history of dementia and is a poor historian. OBJECTIVE: Physical Exam: Vital Signs: Temperature 97.6, heart rate 53, respiratory rate 16, blood pressure 149/73, oxygen saturation 95% on room air. General: Patient is lying in bed, appears thin, in no acute distress. He is sleeping during the examination. HEENT: Normocephalic, atraumatic. Pupils clear, anicteric. Moist mucous membranes. Neck: Supple. No lymphadenopathy. Lungs: Clear to auscultation bilaterally. No wheezing, rhonchi, or rales. Cardiovascular: Regular rate and rhythm. Normal S1 and S2. No murmurs, rubs, or gallops. Abdomen: Soft, nontender, nondistended. Bowel sounds present. Extremities: Right 4th and 5th toes amputated with open wound in the area and an area of gangrenous tissue. The wound appears clean, and there is no purulence. The gangrenous area appears dry and has not increased in size. Neurologic: No focal deficits appreciated. Oriented only to person. LABORATORY DATA: From 07/19/2019: White blood cell count 8.2, hemoglobin 9.7, hematocrit 29.7, platelet count 406. Sodium 141, potassium 4.5, chloride 107, bicarbonate 28, BUN 20, creatinine 1.12, glucose 77. Microbiology: Wound culture on 07/09/2019: Positive for Enterococcus faecalis, sensitive to ampicillin and vancomycin. Wound culture from 07/10/2019: Positive for Enterococcus faecalis, sensitive to ampicillin and vancomycin. Blood cultures times two from 07/09/2019: Negative after 5 days. 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 Based on wound culture results, we have de-escalated his antibiotics to ampicillin in place of vancomycin. He should complete a full 6 week course of antibiotics, start from 07/08 when Zosyn was started by the ID team. Antibiotics should be continued up until 08/20/2019 to complete the full course. It appears his and family are still opposed to surgical intervention at this time. Currently he is awaiting placement to a custodial, although it is unclear if his family is fully agreeable to this as well. Continue with daily wound care. FLORINA
[2019-07-20] MEDS ORDERED: VANCOMYCIN HCL 750 MG, VIAL MATE ADAPTER 1 EACH in D5W 250 ML IV SCH (19:00)
--- NOTE | 2019-07-20 19:36 | IPNPDOC ---
Date Seen The patient was seen on 07/20/19. Progress Note SUBJECTIVE: No acute events overnight. Patient has no complaints. OBJECTIVE: VS: Please see below PHYSICAL EXAMINATION: CONSTITUTIONAL: Resting in chair at bedside, pleasantly confused. EYES: PERRLA, EOM intact HENT, MOUTH: Normocephalic, atraumatic, moist mucous membranes NECK: SUPPLE, no JVD, no lymphadenopathy, no carotid bruit CV: Regular rate and rhythm, S1S2 normal, no murmurs/rubs/gallops RESPIRATORY: Clear to auscultation bilaterally, no rales/rhonchi/wheezes GI: BS positive in 4 quadrants, soft, nontender, nondistended, no rebound or guarding, no organomegaly : Deferred MUSCULOSKELETAL: Area of amputation appears clean, nonsuppurative, no foul smell. Contracted lower ext bilaterally. No cyanosis, clubbing, swelling, joint deformity, extremity edema INTEGUMENTARY: Intact, no rashes, no lesions, no erythema NEUROLOGIC: Cranial Nerves II-XII are intact, no focal deficits CURRENT MEDICATIONS: Please see below LABORATORY DATA: Please see below IMAGING: No new imaging. 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 PLAN: (1) Gangrene of toe of right foot Status: Acute Problem Text: Distal dried gangrene, with recent third metatarsal head excision and wound debridement, excisional type, including subcutaneous tissue, tendon and bone 07/10/19. 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 ID deescalated abx to Ampicillin. C/w current treatment. Continue present care and wound care as per orders by podiatry As per vascular surgery patient is not a surgical candidate. Patient's placement is pending. [facility] once bed available (2) HTN (hypertension) Status: Chronic Problem Text: Continue present medications (3) BPH (benign prostatic hyperplasia) Status: Chronic Problem Text: Continue present medications (4) Dementia Status: Chronic Problem Text: Continue present medications DISPOSITION: C/w treatment above. Awaiting placement to SNF. VS, I&O, 24H, Fishbone Vital Signs/I&O Vital Signs Date Time Temp Pulse Resp B/P (MAP) Pulse Ox O2 Delivery O2 Flow Rate FiO2 07/20/19 19:09 54 134/79 (97) 07/20/19 18:00 97.3 18 95 Room Air I&O- Last 24 Hours up to 6 AM 07/20/19 06:00 Intake Total 730 ml Output Total 100 ml Balance 630 ml Laboratory Data 24H LABS Laboratory Tests 2 07/20/19 10:56: Vancomycin Level Trough 21.0H Microbiology Microbiology 07/10/19 Bacterial Culture - Final, Complete Enterococcus Faecalis Current Medications Current Medications Medications (Trade) Dose Ordered Sig/Hubert Route PRN Reason Start Time Stop Time Status Last Admin Dose Admin Acetaminophen (Tylenol Tab) 650 mg Q4H PRN PO PAIN OR FEVER 02/12/19 02:30 06/16/19 10:09 Amlodipine Besylate (Norvasc) 2.5 mg BID PO 07/12/19 02:30 07/12/19 10:15 DC 07/12/19 08:17 Amlodipine Besylate (Norvasc) 5 mg BID PO 02/21/19 09:00 02/21/19 08:44 DC Amlodipine Besylate (Norvasc) 5 mg DAILY PO 05/10/19 09:00 05/10/19 09:32 DC Amlodipine Besylate (Norvasc) 5 mg QHS PO 04/20/19 21:00 04/29/19 14:56 DC 04/28/19 20:47 Amlodipine Besylate (Norvasc) 10 mg DAILY PO 05/03/19 09:00 05/09/19 09:24 DC 05/07/19 08:07 Amlodipine Besylate (Norvasc) 10 mg DAILY PO 02/12/19 09:00 02/13/19 09:42 DC 02/13/19 08:52 Amlodipine Besylate (Norvasc) 10 mg DAILY PO 02/13/19 09:00 02/13/19 09:45 DC Amlodipine Besylate (Norvasc) 10 mg DAILY PO 02/14/19 09:00 02/21/19 06:46 DC 02/19/19 08:33 Amlodipine Besylate (Norvasc) 10 mg QHS PO 02/21/19 21:00 04/20/19 15:21 DC 04/19/19 20:12 Amoxicillin/ Clavulanate Potassium (Augmentin) 500 mg BID PO 05/01/19 10:00 05/09/19 07:52 DC 05/08/19 19:47 Amoxicillin/ Clavulanate Potassium (Augmentin) 500 mg BID PO 03/07/19 21:00 03/12/19 10:33 DC 03/12/19 09:04 Amoxicillin/ Clavulanate Potassium (Augmentin) 875 mg BID PO 05/01/19 21:00 UNV Amoxicillin/ Clavulanate Potassium (Augmentin) 875 mg BID PO 02/15/19 09:00 02/22/19 08:59 DC 02/21/19 20:29 Ampicillin Sodium 2 gm/Dextrose 100 ml @ 200 mls/hr Q6H IV 07/20/19 17:00 07/20/19 16:15 Ampicillin Sodium/ Sulbactam Sodium 1.5 gm/Dextrose 50 ml @ 100 mls/hr Q6H IV 02/12/19 05:00 02/15/19 09:27 DC 02/15/19 05:19 Ampicillin Sodium/ Sulbactam Sodium 3 gm/Dextrose 100 ml @ 200 mls/hr Q12H IV 03/06/19 23:00 03/07/19 17:17 DC 03/07/19 11:39 Atenolol (Tenormin) 12.5 mg BID PO 02/13/19 09:00 02/15/19 14:32 DC 02/14/19 20:57 Azithromycin (Zithromax Tab) 500 mg DAILY PO 03/07/19 09:00 03/13/19 14:18 DC 03/13/19 10:03 Azithromycin 500 mg/IV Miscellaneous Supplies 1 each/ Dextrose 255 ml @ 255 mls/hr Q24H IV 03/06/19 00:00 03/07/19 17:17 DC 03/07/19 00:44 Bisacodyl (Dulcolax Suppository) 10 mg Q2DP PRN MD CONSTIPATION 02/12/19 18:45 02/13/19 14:23 Cephalexin Monohydrate (Keflex) 500 mg BID PO 05/25/19 09:00 06/07/19 23:59 DC 06/07/19 21:47 Cephalexin Monohydrate (Keflex) 500 mg Q12H PO 06/29/19 09:00 07/08/19 08:59 DC 07/07/19 20:39 Cetirizine HCl (ZyrTEC) 10 mg DAILY PO 02/14/19 09:00 07/20/19 09:05 Cyanocobalamin (Vitamin B12) 500 mcg QHS PO 02/12/19 21:00 07/19/19 20:51 Dextrose/Lactated Ringer's 1,000 ml @ 40 mls/hr Q24H IV 02/12/19 02:30 02/12/19 17:11 DC 02/12/19 03:12 Divalproex Sodium (Depakote Er) 500 mg QHS PO 02/12/19 21:00 07/19/19 20:51 Docusate Sodium (Colace) 100 mg Q12HP PRN PO CONSTIPATION 05/03/19 11:45 07/19/19 20:51 Donepezil HCl (AriCEPT) 10 mg QHS PO 02/12/19 21:00 07/19/19 20:51 Enoxaparin Sodium (Lovenox) 30 mg DAILY SC 02/15/19 09:00 07/20/19 09:05 Home Med (Med Rec Complete!) ASDIRECTED XX 02/12/19 04:00 02/12/19 04:05 DC Hydralazine HCl (Apresoline) 10 mg Q4H IV 02/12/19 14:00 02/13/19 07:26 DC 02/13/19 05:23 Hydralazine HCl (Apresoline) 20 mg Q6H PO 02/12/19 12:00 02/12/19 13:20 DC Hydralazine HCl (Apresoline) 25 mg QID PO 02/13/19 09:00 02/17/19 12:49 DC 02/17/19 11:08 Isosorbide Dinitrate (Isordil) 20 mg Q6H PO 02/13/19 18:00 02/17/19 12:49 DC 02/17/19 11:06 Labetalol HCl (Normodyne, Trandate) 2 mg Q6HP PRN IV BP > 160/100 02/12/19 03:45 02/12/19 12:21 DC Lactated Ringer's 1,000 ml @ 75 mls/hr [id number] IV 04/28/19 08:15 04/29/19 08:06 DC 04/28/19 20:48 Lactated Ringer's 1,000 ml @ 75 mls/hr [id number] IV 04/29/19 14:30 05/01/19 07:51 DC 04/30/19 19:00 Levofloxacin (Levaquin) 250 mg Q24H PO 05/30/19 22:00 06/12/19 23:59 DC 06/12/19 21:39 Levofloxacin (Levaquin) 750 mg Q48H PO 07/01/19 06:00 07/09/19 10:00 DC 07/09/19 10:07 Lisinopril (Prinivil) 5 mg DAILY PO 07/12/19 02:30 07/12/19 10:15 DC 07/12/19 02:57 Lisinopril (Prinivil) 5 mg QHS PO 07/15/19 21:00 07/19/19 20:51 Lisinopril (Prinivil) 5 mg QHS PO 02/21/19 21:00 04/29/19 14:56 DC 04/28/19 20:46 Lisinopril (Prinivil) 10 mg DAILY PO 05/03/19 09:00 05/09/19 09:24 DC 05/07/19 08:07 Lisinopril (Prinivil) 10 mg QHS PO 05/09/19 21:00 07/09/19 09:01 DC 07/08/19 21:36 Lisinopril (Prinivil) 10 mg QHS PO 02/17/19 21:00 02/21/19 06:43 DC 02/20/19 20:31 Lisinopril (Prinivil) 10 mg QHS PO 02/21/19 21:00 02/21/19 08:44 DC Lisinopril (Prinivil) 20 mg QHS PO 02/21/19 21:00 02/21/19 06:46 DC Magnesium Hydroxide (Milk Of Magnesia) 30 ml DAILYPRN PRN PO CONSTIPATION 02/12/19 19:00 02/13/19 08:57 Metronidazole (Flagyl) 500 mg Q8H PO 05/01/19 14:00 05/03/19 10:32 DC 05/03/19 06:56 Miscellaneous (Unresolved Clarification Entry) SEE LABEL COMMENTS DAILY XX 04/15/19 09:00 Cancel Miscellaneous (Unresolved Clarification Entry) SEE LABEL COMMENTS DAILY XX 04/21/19 09:00 04/21/19 16:34 DC Miscellaneous (Unresolved Clarification Entry) SEE LABEL COMMENTS DAILY XX 05/17/19 09:00 05/17/19 11:43 DC Miscellaneous (Unresolved Clarification Entry) SEE LABEL COMMENTS DAILY XX 05/23/19 09:00 05/24/19 12:03 DC Miscellaneous (Unresolved Clarification Entry) SEE LABEL COMMENTS DAILY XX 05/05/19 09:00 05/05/19 11:26 DC Miscellaneous (Unresolved Clarification Entry) SEE LABEL COMMENTS DAILY XX 06/18/19 09:00 06/20/19 08:54 DC Miscellaneous (Unresolved Clarification Entry) SEE LABEL COMMENTS DAILY XX 06/25/19 09:00 06/25/19 11:30 DC Miscellaneous (Unresolved Clarification Entry) SEE LABEL COMMENTS DAILY XX 07/11/19 09:00 07/11/19 11:57 DC Miscellaneous (Unresolved Clarification Entry) SEE LABEL COMMENTS DAILY XX 02/21/19 09:00 02/22/19 06:40 DC Miscellaneous (Unresolved Clarification Entry) SEE LABEL COMMENTS DAILY XX 02/22/19 09:00 02/22/19 12:30 DC Miscellaneous (Unresolved Clarification Entry) SEE LABEL COMMENTS DAILY XX 02/26/19 09:00 02/26/19 12:38 DC Miscellaneous (Unresolved Clarification Entry) SEE LABEL COMMENTS DAILY XX 03/15/19 09:00 03/15/19 10:31 DC Miscellaneous (Unresolved Clarification Entry) SEE LABEL COMMENTS DAILY XX 03/25/19 09:00 03/25/19 12:55 DC Nitroglycerin (Nitrobid 2%) HOLD FOR SBP<140 1 INCH Q4H TOP 02/12/19 13:00 02/13/19 09:28 DC 02/13/19 08:53 Nystatin (Mycostatin Powder, Nystop) groin BID TOP 06/10/19 09:00 07/20/19 09:05 Piperacillin Sod/ Tazobactam Sod 2.25 gm/Dextrose 50 ml @ 100 mls/hr Q6H IV 07/09/19 14:00 07/12/19 08:42 DC 07/12/19 08:16 Piperacillin Sod/ Tazobactam Sod 3.375 gm/Dextrose 50 ml @ 50 mls/hr Q6H IV 04/29/19 15:00 05/01/19 07:51 DC 05/01/19 03:19 Piperacillin Sod/ Tazobactam Sod 3.375 gm/Dextrose 50 ml @ 50 mls/hr Q6H IV 07/09/19 14:00 07/09/19 13:52 DC Sodium Biphosphate/ Sodium Phosphate (Fleet Enema) 1 ea Q3DP PRN MD CONSTIPATION 02/12/19 19:00 Sodium Chloride 1,000 ml @ 80 mls/hr [id number] IV 07/09/19 09:00 07/11/19 14:05 DC 07/11/19 08:49 Sodium Chloride ([place]ci Nasal [place]) 2 spray Q2HP PRN NA NASAL DRYNESS 02/13/19 09:30 Sodium Chloride (Morenci Nasal [place]) 2 spray TID NA 02/13/19 09:00 03/18/19 09:01 DC 03/17/19 21:33 Tamsulosin HCl (Flomax) 0.4 mg QHS PO 02/12/19 21:00 07/19/19 20:51 Trazodone HCl (Desyrel) 25 mg QHSP PRN PO INSOMNIA 02/21/19 06:45 04/23/19 01:42 Vancomycin HCl 500 mg/Dextrose 110 ml @ 110 mls/hr Q24H IV 07/19/19 12:00 07/20/19 12:22 DC 07/19/19 12:13 Vancomycin HCl 500 mg/IV Miscellaneous Supplies 10 ml @ 10 mls/hr Q8H IV 07/12/19 08:45 07/12/19 09:07 DC Vancomycin HCl 750 mg/IV Miscellaneous Supplies 1 each/ Dextrose 275 ml @ 275 mls/hr Q12H IV 02/12/19 02:30 02/12/19 05:32 DC Vancomycin HCl 750 mg/IV Miscellaneous Supplies 1 each/ Dextrose 275 ml @ 275 mls/hr Q24H IV 04/29/19 16:00 04/30/19 12:06 DC 04/29/19 16:50 Vancomycin HCl 750 mg/IV Miscellaneous Supplies 1 each/ Dextrose 275 ml @ 275 mls/hr Q24H IV 07/16/19 10:00 07/19/19 09:32 DC 07/18/19 09:57 Vancomycin HCl 750 mg/IV Miscellaneous Supplies 1 each/ Dextrose 275 ml @ 275 mls/hr Q36H IV 07/20/19 19:00 07/20/19 14:57 DC Vancomycin HCl 1000 mg/IV Miscellaneous Supplies 1 each/ Dextrose 270 ml @ 270 mls/hr Q18H IV 02/12/19 06:00 02/15/19 06:02 DC 02/14/19 11:20 Vancomycin HCl 1000 mg/IV Miscellaneous Supplies 1 each/ Dextrose 270 ml @ 270 mls/hr Q24H IV 07/13/19 07:00 07/16/19 06:45 DC 07/15/19 07:06 Vancomycin HCl 1000 mg/IV Miscellaneous Supplies 1 each/ Dextrose 270 ml @ 270 mls/hr Q24H IV 02/15/19 12:00 02/15/19 09:27 DC Vitamin D (Vitamin D) 1,000 units QPM PO 02/12/19 21:00 07/19/19 20:51 Allergies Coded Allergies: No Known Allergies (Unverified , 12/09/18) Radha Delgado MD Jul 20, 2019 19:35
[2019-07-20] MEDS: CYANOCOBALAMIN 500 MCG TAB PO SCH (21:24)
[2019-07-20] MEDS: TAMSULOSIN 0.4 MG CAP PO SCH (21:24)
[2019-07-20] MEDS: VITAMIN D 1,000 INTERNATIONAL UNITS TABLET PO SCH (21:24)
[2019-07-20] MEDS: DONEPEZIL 5 MG TAB PO SCH (21:24)
[2019-07-20] MEDS: DIVALPROEX 250MG *ER* TAB PO SCH (21:25)
[2019-07-20] MEDS: lisinopriL 5 MG TAB PO SCH (21:27)
[2019-07-21 02:00] VITALS: BP 139/66
[2019-07-21] MEDS: AMPICILLIN SOD 2 GM in D5W MINI-BAG PLUS 100 ML IV SCH ×4 (04:54→22:46)
[2019-07-21 06:00] VITALS: BP 139/59
[2019-07-21 06:48] LABS: HEMATOCRIT 29.4 % (42.0-52.0); HEMOGLOBIN 9.6 g/dl (13.5-17.5); MEAN CORPUSCULAR HEMOGLOBIN 31.4 pg (27.0-33.0); MEAN CORPUSCULAR HGB CONC 32.7 g/dl (32.0-36.5); MEAN CORPUSCULAR VOLUME 96.1 fl (80.0-96.0); PLATELET COUNT, AUTOMATED 388 10^3/uL (150-450); RED BLOOD COUNT 3.06 10^6/uL (4.30-6.10); WHITE BLOOD COUNT 8.9 10^3/uL (4.0-10.0)
[2019-07-21 07:20] LABS: ALT/SGPT 13 U/L (12-78); BILIRUBIN,TOTAL 0.2 MG/DL (0.2-1.0); BLOOD UREA NITROGEN 20 MG/DL (7-18); CALCIUM LEVEL 8.1 MG/DL (8.8-10.2); CARBON DIOXIDE LEVEL 29 MEQ/L (21-32); CHLORIDE LEVEL 103 MEQ/L (98-107); CREATININE FOR GFR 1.14 MG/DL (0.70-1.30); GLOMERULAR FILTRATION RATE > 60.0 (>35); GLUCOSE, FASTING 79 MG/DL (70-100); POTASSIUM SERUM 4.4 MEQ/L (3.5-5.1); SODIUM LEVEL 138 MEQ/L (136-145); TOTAL PROTEIN 6.7 GM/DL (6.4-8.2)
[2019-07-21] MEDS: ENOXAPARIN 30MG/0.3ML SYRINGE (J1650 PER 10MG) SC SCH (08:53)
[2019-07-21] MEDS: CETIRIZINE (ZyrTEC) 10 MG TAB PO SCH (08:53)
[2019-07-21] MEDS: NYSTATIN 100,000 UNITS/GM TOPICAL PWD 15 GM TOP SCH ×2 (08:53→22:46)
[2019-07-21 09:58] VITALS: BP 132/68
--- NOTE | 2019-07-21 21:11 | IPNPDOC ---
Date Seen The patient was seen on 07/21/19. Progress Note SUBJECTIVE: No acute events overnight. Patient denies SOB, chest pain and has no complaints. OBJECTIVE: VS: Please see below PHYSICAL EXAMINATION: CONSTITUTIONAL: Resting in bed. EYES: PERRLA, EOM intact HENT, MOUTH: Normocephalic, atraumatic, moist mucous membranes NECK: SUPPLE, no JVD, no lymphadenopathy, no carotid bruit CV: Regular rate and rhythm, S1S2 normal, no murmurs/rubs/gallops RESPIRATORY: Clear to auscultation bilaterally, no rales/rhonchi/wheezes GI: BS positive in 4 quadrants, soft, nontender, nondistended, no rebound or guarding, no organomegaly : Deferred MUSCULOSKELETAL: Area of amputation appears clean, nonsuppurative, no foul smell. Contracted lower ext bilaterally. No cyanosis, clubbing, swelling, joint deformity, extremity edema INTEGUMENTARY: Intact, no rashes, no lesions, no erythema NEUROLOGIC: Cranial Nerves II-XII are intact, no focal deficits CURRENT MEDICATIONS: Please see below LABORATORY DATA: Please see below IMAGING: No new imaging. 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 PLAN: (1) Gangrene of toe of right foot Status: Acute Problem Text: Distal dried gangrene, with recent third metatarsal head excision and wound debridement, excisional type, including subcutaneous tissue, tendon a nd bone 07/10/19. 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 ID deescalated abx to Ampicillin. C/w current treatment. Continue present care and wound care as per orders by podiatry As per vascular surgery patient is not a surgical candidate. Patient's placement is pending. [facility] be [facility] in a [facility] once bed available (2) HTN (hypertension) Status: Chronic Problem Text: Continue present medications (3) BPH (benign prostatic hyperplasia) Status: Chronic Problem Text: Continue present medications (4) Dementia Status: Chronic Problem Text: Continue present medications DISPOSITION: C/w treatment above. Awaiting placement to SNF. VS, I&O, 24H, Fishbone Vital Signs/I&O Vital Signs Date Time Temp Pulse Resp B/P (MAP) Pulse Ox O2 Delivery O2 Flow Rate FiO2 07/21/19 09:58 98.2 61 17 132/68 (89) 97 Room Air I&O- Last 24 Hours up to 6 AM 07/21/19 06:00 Intake Total 760 ml Balance 760 ml Laboratory Data 24H LABS Laboratory Tests 2 07/21/19 06:14: Nucleated Red Blood Cells % (auto) 0.0, Anion Gap 6L, Glomerular Filtration Rate > 60.0, Calcium Level 8.1L, Total Bilirubin 0.2, Aspartate Amino Transf (AST/SGOT) 17, Alanine Aminotransferase (ALT/SGPT) 13, Alkaline Phosphatase 70, Total Protein 6.7, Albumin 2.0L, Albumin/Globulin Ratio 0.43L CBC/BMP Laboratory Tests 07/21/19 06:14 Current Medications Current Medications Medications (Trade) Dose Ordered Sig/Hubert Route PRN Reason Start Time Stop Time Status Last Admin Dose Admin Acetaminophen (Tylenol Tab) 650 mg Q4H PRN PO PAIN OR FEVER 02/12/19 02:30 06/16/19 10:09 Amlodipine Besylate (Norvasc) 2.5 mg BID PO 07/12/19 02:30 07/12/19 10:15 DC 07/12/19 08:17 Amlodipine Besylate (Norvasc) 5 mg BID PO 02/21/19 09:00 02/21/19 08:44 DC Amlodipine Besylate (Norvasc) 5 mg DAILY PO 05/10/19 09:00 05/10/19 09:32 DC Amlodipine Besylate (Norvasc) 5 mg QHS PO 04/20/19 21:00 04/29/19 14:56 DC 04/28/19 20:47 Amlodipine Besylate (Norvasc) 10 mg DAILY PO 05/03/19 09:00 05/09/19 09:24 DC 05/07/19 08:07 Amlodipine Besylate (Norvasc) 10 mg DAILY PO 02/12/19 09:00 02/13/19 09:42 DC 02/13/19 08:52 Amlodipine Besylate (Norvasc) 10 mg DAILY PO 02/13/19 09:00 02/13/19 09:45 DC Amlodipine Besylate (Norvasc) 10 mg DAILY PO 02/14/19 09:00 02/21/19 06:46 DC 02/19/19 08:33 Amlodipine Besylate (Norvasc) 10 mg QHS PO 02/21/19 21:00 04/20/19 15:21 DC 04/19/19 20:12 Amoxicillin/ Clavulanate Potassium (Augmentin) 500 mg BID PO 05/01/19 10:00 05/09/19 07:52 DC 05/08/19 19:47 Amoxicillin/ Clavulanate Potassium (Augmentin) 500 mg BID PO 03/07/19 21:00 03/12/19 10:33 DC 03/12/19 09:04 Amoxicillin/ Clavulanate Potassium (Augmentin) 875 mg BID PO 05/01/19 21:00 UNV Amoxicillin/ Clavulanate Potassium (Augmentin) 875 mg BID PO 02/15/19 09:00 02/22/19 08:59 DC 02/21/19 20:29 Ampicillin Sodium 2 gm/Dextrose 100 ml @ 200 mls/hr Q6H IV 07/20/19 17:00 07/21/19 16:29 Ampicillin Sodium/ Sulbactam Sodium 1.5 gm/Dextrose 50 ml @ 100 mls/hr Q6H IV 02/12/19 05:00 02/15/19 09:27 DC 02/15/19 05:19 Ampicillin Sodium/ Sulbactam Sodium 3 gm/Dextrose 100 ml @ 200 mls/hr Q12H IV 03/06/19 23:00 03/07/19 17:17 DC 03/07/19 11:39 Atenolol (Tenormin) 12.5 mg BID PO 02/13/19 09:00 02/15/19 14:32 DC 02/14/19 20:57 Azithromycin (Zithromax Tab) 500 mg DAILY PO 03/07/19 09:00 03/13/19 14:18 DC 03/13/19 10:03 Azithromycin 500 mg/IV Miscellaneous Supplies 1 each/ Dextrose 255 ml @ 255 mls/hr Q24H IV 03/06/19 00:00 03/07/19 17:17 DC 03/07/19 00:44 Bisacodyl (Dulcolax Suppository) 10 mg Q2DP PRN [place] CONSTIPATION 02/12/19 18:45 02/13/19 14:23 Cephalexin Monohydrate (Keflex) 500 mg BID PO 05/25/19 09:00 06/07/19 23:59 DC 06/07/19 21:47 Cephalexin Monohydrate (Keflex) 500 mg Q12H PO 06/29/19 09:00 07/08/19 08:59 DC 07/07/19 20:39 Cetirizine HCl (ZyrTEC) 10 mg DAILY PO 02/14/19 09:00 07/21/19 08:53 Cyanocobalamin (Vitamin B12) 500 mcg QHS PO 02/12/19 21:00 07/20/19 21:24 Dextrose/Lactated Ringer's 1,000 ml @ 40 mls/hr Q24H IV 02/12/19 02:30 02/12/19 17:11 DC 02/12/19 03:12 Divalproex Sodium (Depakote Er) 500 mg QHS PO 02/12/19 21:00 07/20/19 21:25 Docusate Sodium (Colace) 100 mg Q12HP PRN PO CONSTIPATION 05/03/19 11:45 07/19/19 20:51 Donepezil HCl (AriCEPT) 10 mg QHS PO 02/12/19 21:00 07/20/19 21:24 Enoxaparin Sodium (Lovenox) 30 mg DAILY SC 02/15/19 09:00 07/21/19 08:53 Home Med (Med Rec Complete!) ASDIRECTED XX 02/12/19 04:00 02/12/19 04:05 DC Hydralazine HCl (Apresoline) 10 mg Q4H IV 02/12/19 14:00 02/13/19 07:26 DC 02/13/19 05:23 Hydralazine HCl (Apresoline) 20 mg Q6H PO 02/12/19 12:00 02/12/19 13:20 DC Hydralazine HCl (Apresoline) 25 mg QID PO 02/13/19 09:00 02/17/19 12:49 DC 02/17/19 11:08 Isosorbide Dinitrate (Isordil) 20 mg Q6H PO 02/13/19 18:00 02/17/19 12:49 DC 02/17/19 11:06 Labetalol HCl (Normodyne, Trandate) 2 mg Q6HP PRN IV BP > 160/100 02/12/19 03:45 02/12/19 12:21 DC Lactated Ringer's 1,000 ml @ 75 mls/hr [id number] IV 04/28/19 08:15 04/29/19 08:06 DC 04/28/19 20:48 Lactated Ringer's 1,000 ml @ 75 mls/hr [id number] IV 04/29/19 14:30 05/01/19 07:51 DC 04/30/19 19:00 Levofloxacin (Levaquin) 250 mg Q24H PO 05/30/19 22:00 06/12/19 23:59 DC 06/12/19 21:39 Levofloxacin (Levaquin) 750 mg Q48H PO 07/01/19 06:00 07/09/19 10:00 DC 07/09/19 10:07 Lisinopril (Prinivil) 5 mg DAILY PO 07/12/19 02:30 07/12/19 10:15 DC 07/12/19 02:57 Lisinopril (Prinivil) 5 mg QHS PO 07/15/19 21:00 07/20/19 21:27 Lisinopril (Prinivil) 5 mg QHS PO 02/21/19 21:00 04/29/19 14:56 DC 04/28/19 20:46 Lisinopril (Prinivil) 10 mg DAILY PO 05/03/19 09:00 05/09/19 09:24 DC 05/07/19 08:07 Lisinopril (Prinivil) 10 mg QHS PO 05/09/19 21:00 07/09/19 09:01 DC 07/08/19 21:36 Lisinopril (Prinivil) 10 mg QHS PO 02/17/19 21:00 02/21/19 06:43 DC 02/20/19 20:31 Lisinopril (Prinivil) 10 mg QHS PO 02/21/19 21:00 02/21/19 08:44 DC Lisinopril (Prinivil) 20 mg QHS PO 02/21/19 21:00 02/21/19 06:46 DC Magnesium Hydroxide (Milk Of Magnesia) 30 ml DAILYPRN PRN PO CONSTIPATION 02/12/19 19:00 02/13/19 08:57 Metronidazole (Flagyl) 500 mg Q8H PO 05/01/19 14:00 05/03/19 10:32 DC 05/03/19 06:56 Miscellaneous (Unresolved Clarification Entry) SEE LABEL COMMENTS DAILY XX 04/15/19 09:00 Cancel Miscellaneous (Unresolved Clarification Entry) SEE LABEL COMMENTS DAILY XX 04/21/19 09:00 04/21/19 16:34 DC Miscellaneous (Unresolved Clarification Entry) SEE LABEL COMMENTS DAILY XX 05/17/19 09:00 05/17/19 11:43 DC Miscellaneous (Unresolved Clarification Entry) SEE LABEL COMMENTS DAILY XX 05/23/19 09:00 05/24/19 12:03 DC Miscellaneous (Unresolved Clarification Entry) SEE LABEL COMMENTS DAILY XX 05/05/19 09:00 05/05/19 11:26 DC Miscellaneous (Unresolved Clarification Entry) SEE LABEL COMMENTS DAILY XX 06/18/19 09:00 06/20/19 08:54 DC Miscellaneous (Unresolved Clarification Entry) SEE LABEL COMMENTS DAILY XX 06/25/19 09:00 06/25/19 11:30 DC Miscellaneous (Unresolved Clarification Entry) SEE LABEL COMMENTS DAILY XX 07/11/19 09:00 07/11/19 11:57 DC Miscellaneous (Unresolved Clarification Entry) SEE LABEL COMMENTS DAILY XX 02/21/19 09:00 02/22/19 06:40 DC Miscellaneous (Unresolved Clarification Entry) SEE LABEL COMMENTS DAILY XX 02/22/19 09:00 02/22/19 12:30 DC Miscellaneous (Unresolved Clarification Entry) SEE LABEL COMMENTS DAILY XX 02/26/19 09:00 02/26/19 12:38 DC Miscellaneous (Unresolved Clarification Entry) SEE LABEL COMMENTS DAILY XX 03/15/19 09:00 03/15/19 10:31 DC Miscellaneous (Unresolved Clarification Entry) SEE LABEL COMMENTS DAILY XX 03/25/19 09:00 03/25/19 12:55 DC Nitroglycerin (Nitrobid 2%) HOLD FOR SBP<140 1 INCH Q4H TOP 02/12/19 13:00 02/13/19 09:28 DC 02/13/19 08:53 Nystatin (Mycostatin Powder, Nystop) groin BID TOP 06/10/19 09:00 07/21/19 08:53 Piperacillin Sod/ Tazobactam Sod 2.25 gm/Dextrose 50 ml @ 100 mls/hr Q6H IV 07/09/19 14:00 07/12/19 08:42 DC 07/12/19 08:16 Piperacillin Sod/ Tazobactam Sod 3.375 gm/Dextrose 50 ml @ 50 mls/hr Q6H IV 04/29/19 15:00 05/01/19 07:51 DC 05/01/19 03:19 Piperacillin Sod/ Tazobactam Sod 3.375 gm/Dextrose 50 ml @ 50 mls/hr Q6H IV 07/09/19 14:00 07/09/19 13:52 DC Sodium Biphosphate/ Sodium Phosphate (Fleet Enema) 1 ea Q3DP PRN NE CONSTIPATION 02/12/19 19:00 Sodium Chloride 1,000 ml @ 80 mls/hr [id number] IV 07/09/19 09:00 07/11/19 14:05 DC 07/11/19 08:49 Sodium Chloride ([place] Nasal [place]) 2 spray Q2HP PRN NA NASAL DRYNESS 02/13/19 09:30 Sodium Chloride ([place] Nasal [place]) 2 spray TID NA 02/13/19 09:00 03/18/19 09:01 DC 03/17/19 21:33 Tamsulosin HCl (Flomax) 0.4 mg QHS PO 02/12/19 21:00 07/20/19 21:24 Trazodone HCl (Desyrel) 25 mg QHSP PRN PO INSOMNIA 02/21/19 06:45 04/23/19 01:42 Vancomycin HCl 500 mg/Dextrose 110 ml @ 110 mls/hr Q24H IV 07/19/19 12:00 07/20/19 12:22 DC 07/19/19 12:13 Vancomycin HCl 500 mg/IV Miscellaneous Supplies 10 ml @ 10 mls/hr Q8H IV 07/12/19 08:45 07/12/19 09:07 DC Vancomycin HCl 750 mg/IV Miscellaneous Supplies 1 each/ Dextrose 275 ml @ 275 mls/hr Q12H IV 02/12/19 02:30 02/12/19 05:32 DC Vancomycin HCl 750 mg/IV Miscellaneous Supplies 1 each/ Dextrose 275 ml @ 275 mls/hr Q24H IV 04/29/19 16:00 04/30/19 12:06 DC 04/29/19 16:50 Vancomycin HCl 750 mg/IV Miscellaneous Supplies 1 each/ Dextrose 275 ml @ 275 mls/hr Q24H IV 07/16/19 10:00 07/19/19 09:32 DC 07/18/19 09:57 Vancomycin HCl 750 mg/IV Miscellaneous Supplies 1 each/ Dextrose 275 ml @ 275 mls/hr Q36H IV 07/20/19 19:00 07/20/19 14:57 DC Vancomycin HCl 1000 mg/IV Miscellaneous Supplies 1 each/ Dextrose 270 ml @ 270 mls/hr Q18H IV 02/12/19 06:00 02/15/19 06:02 DC 02/14/19 11:20 Vancomycin HCl 1000 mg/IV Miscellaneous Supplies 1 each/ Dextrose 270 ml @ 270 mls/hr Q24H IV 07/13/19 07:00 07/16/19 06:45 DC 07/15/19 07:06 Vancomycin HCl 1000 mg/IV Miscellaneous Supplies 1 each/ Dextrose 270 ml @ 270 mls/hr Q24H IV 02/15/19 12:00 02/15/19 09:27 DC Vitamin D (Vitamin D) 1,000 units QPM PO 02/12/19 21:00 07/20/19 21:24 Allergies Coded Allergies: No Known Allergies (Unverified , 12/09/18) Radha Delgado MD Jul 21, 2019 21:11
[2019-07-21 22:00] VITALS: BP 133/70
[2019-07-21] MEDS: DONEPEZIL 5 MG TAB PO SCH (22:45)
[2019-07-21] MEDS: DIVALPROEX 250MG *ER* TAB PO SCH (22:45)
[2019-07-21] MEDS: VITAMIN D 1,000 INTERNATIONAL UNITS TABLET PO SCH (22:46)
[2019-07-21] MEDS: CYANOCOBALAMIN 500 MCG TAB PO SCH (22:46)
[2019-07-21] MEDS: TAMSULOSIN 0.4 MG CAP PO SCH (22:46)
[2019-07-21] MEDS: lisinopriL 5 MG TAB PO SCH (22:47)
[2019-07-22] MEDS: AMPICILLIN SOD 2 GM in D5W MINI-BAG PLUS 100 ML IV SCH ×4 (04:08→22:45)
[2019-07-22 06:00] VITALS: BP 154/70
[2019-07-22 07:07] LABS: HEMATOCRIT 30.6 % (42.0-52.0); MEAN CORPUSCULAR HEMOGLOBIN 31.2 pg (27.0-33.0); MEAN CORPUSCULAR HGB CONC 32.7 g/dl (32.0-36.5); MEAN CORPUSCULAR VOLUME 95.3 fl (80.0-96.0); PLATELET COUNT, AUTOMATED 355 10^3/uL (150-450); RED BLOOD COUNT 3.21 10^6/uL (4.30-6.10); WHITE BLOOD COUNT 7.9 10^3/uL (4.0-10.0)
[2019-07-22 07:24] LABS: ALBUMIN 1.9 GM/DL (3.2-5.2); ALT/SGPT 11 U/L (12-78); BILIRUBIN,TOTAL 0.3 MG/DL (0.2-1.0); BLOOD UREA NITROGEN 19 MG/DL (7-18); CALCIUM LEVEL 8.5 MG/DL (8.8-10.2); CARBON DIOXIDE LEVEL 28 MEQ/L (21-32); CHLORIDE LEVEL 104 MEQ/L (98-107); CREATININE FOR GFR 1.07 MG/DL (0.70-1.30); GLOMERULAR FILTRATION RATE > 60.0 (>35); GLUCOSE, FASTING 70 MG/DL (70-100); POTASSIUM SERUM 4.2 MEQ/L (3.5-5.1); SODIUM LEVEL 137 MEQ/L (136-145); TOTAL PROTEIN 6.5 GM/DL (6.4-8.2)
[2019-07-22] MEDS: ENOXAPARIN 30MG/0.3ML SYRINGE (J1650 PER 10MG) SC SCH (09:22)
[2019-07-22] MEDS: CETIRIZINE (ZyrTEC) 10 MG TAB PO SCH (09:22)
[2019-07-22] MEDS: NYSTATIN 100,000 UNITS/GM TOPICAL PWD 15 GM TOP SCH ×2 (09:23→20:39)
[2019-07-22 10:00] VITALS: BP 100/50
[2019-07-22 14:00] VITALS: BP 137/62
--- NOTE | 2019-07-22 17:20 | IPNPDOC ---
Date Seen The patient was seen on 07/22/19. Progress Note SUBJECTIVE: No acute events overnight. Assessed patient due to concerns of cold extremities and mottling. patient's legs were warm and not mottled when he was assessed today. Patient is pleasantly confused and denies SOB, chest pain and has no complaints. OBJECTIVE: VS: Please see below PHYSICAL EXAMINATION: CONSTITUTIONAL: Resting in bed. EYES: PERRLA, EOM intact HENT, MOUTH: Normocephalic, atraumatic, moist mucous membranes NECK: SUPPLE, no JVD, no lymphadenopathy, no carotid bruit CV: Regular rate and rhythm, S1S2 normal, no murmurs/rubs/gallops RESPIRATORY: Clear to auscultation bilaterally, no rales/rhonchi/wheezes GI: BS positive in 4 quadrants, soft, nontender, nondistended, no rebound or guarding, no organomegaly : Deferred MUSCULOSKELETAL: Warm extremities, no mottling bilaterally. Area of amputation appears clean, nonsuppurative, no foul smell. Contracted lower ext bilaterally. No cyanosis, clubbing, swelling, joint deformity, extremity edema INTEGUMENTARY: Intact, no rashes, no lesions, no erythema NEUROLOGIC: Cranial Nerves II-XII are intact, no focal deficits CURRENT MEDICATIONS: Please see below LABORATORY DATA: Please see below IMAGING: No new imaging. 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 PLAN: (1) Gangrene of toe of right foot Status: Acute Problem Text: Distal dried gangrene, with recent third metatarsal head excision and wound debridement, excisional type, including subcutaneous tissue, tendon and bone 07/10/19. 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 ID deescalated abx to Ampicillin. C/w current treatment. Continue present care and wound care as per orders by podiatry As per vascular surgery patient is not a surgical candidate. Patient's placement is pending. [facility] once bed available (2) HTN (hypertension) Status: Chronic Problem Text: Continue present medications (3) BPH (benign prostatic hyperplasia) Status: Chronic Problem Text: Continue present medications (4) Dementia Status: Chronic Problem Text: Continue present medications DISPOSITION: C/w treatment above. Awaiting placement to SNF. VS, I&O, 24H, Fishbone Vital Signs/I&O Vital Signs Date Time Temp Pulse Resp B/P (MAP) Pulse Ox O2 Delivery O2 Flow Rate FiO2 07/22/19 14:00 98.7 61 20 137/62 (87) 94 Room Air I&O- Last 24 Hours up to 6 AM 07/22/19 06:00 Intake Total 990 ml Output Total 0 ml Balance 990 ml Laboratory Data 24H LABS Laboratory Tests 2 07/22/19 06:16: Nucleated Red Blood Cells % (auto) 0.0, Anion Gap 5L, Glomerular Filtration Rate > 60.0, Calcium Level 8.5L, Total Bilirubin 0.3, Aspartate Amino Transf (AST/SGOT) 13, Alanine Aminotransferase (ALT/SGPT) 11L, Alkaline Phosphatase 68, Total Protein 6.5, Albumin 1.9L, Albumin/Globulin Ratio 0.41L CBC/BMP Laboratory Tests 07/22/19 06:16 Current Medications Current Medications Medications (Trade) Dose Ordered Sig/Hubert Route PRN Reason Start Time Stop Time Status Last Admin Dose Admin Acetaminophen (Tylenol Tab) 650 mg Q4H PRN PO PAIN OR FEVER 02/12/19 02:30 06/16/19 10:09 Amlodipine Besylate (Norvasc) 2.5 mg BID PO 07/12/19 02:30 07/12/19 10:15 DC 07/12/19 08:17 Amlodipine Besylate (Norvasc) 5 mg BID PO 02/21/19 09:00 02/21/19 08:44 DC Amlodipine Besylate (Norvasc) 5 mg DAILY PO 05/10/19 09:00 05/10/19 09:32 DC Amlodipine Besylate (Norvasc) 5 mg QHS PO 04/20/19 21:00 04/29/19 14:56 DC 04/28/19 20:47 Amlodipine Besylate (Norvasc) 10 mg DAILY PO 05/03/19 09:00 05/09/19 09:24 DC 05/07/19 08:07 Amlodipine Besylate (Norvasc) 10 mg DAILY PO 02/12/19 09:00 02/13/19 09:42 DC 02/13/19 08:52 Amlodipine Besylate (Norvasc) 10 mg DAILY PO 02/13/19 09:00 02/13/19 09:45 DC Amlodipine Besylate (Norvasc) 10 mg DAILY PO 02/14/19 09:00 02/21/19 06:46 DC 02/19/19 08:33 Amlodipine Besylate (Norvasc) 10 mg QHS PO 02/21/19 21:00 04/20/19 15:21 DC 04/19/19 20:12 Amoxicillin/ Clavulanate Potassium (Augmentin) 500 mg BID PO 05/01/19 10:00 05/09/19 07:52 DC 05/08/19 19:47 Amoxicillin/ Clavulanate Potassium (Augmentin) 500 mg BID PO 03/07/19 21:00 03/12/19 10:33 DC 03/12/19 09:04 Amoxicillin/ Clavulanate Potassium (Augmentin) 875 mg BID PO 05/01/19 21:00 UNV Amoxicillin/ Clavulanate Potassium (Augmentin) 875 mg BID PO 02/15/19 09:00 02/22/19 08:59 DC 02/21/19 20:29 Ampicillin Sodium 2 gm/Dextrose 100 ml @ 200 mls/hr Q6H IV 07/20/19 17:00 07/22/19 16:30 Ampicillin Sodium/ Sulbactam Sodium 1.5 gm/Dextrose 50 ml @ 100 mls/hr Q6H IV 02/12/19 05:00 02/15/19 09:27 DC 02/15/19 05:19 Ampicillin Sodium/ Sulbactam Sodium 3 gm/Dextrose 100 ml @ 200 mls/hr Q12H IV 03/06/19 23:00 03/07/19 17:17 DC 03/07/19 11:39 Atenolol (Tenormin) 12.5 mg BID PO 02/13/19 09:00 02/15/19 14:32 DC 02/14/19 20:57 Azithromycin (Zithromax Tab) 500 mg DAILY PO 03/07/19 09:00 03/13/19 14:18 DC 03/13/19 10:03 Azithromycin 500 mg/IV Miscellaneous Supplies 1 each/ Dextrose 255 ml @ 255 mls/hr Q24H IV 03/06/19 00:00 03/07/19 17:17 DC 03/07/19 00:44 Bisacodyl (Dulcolax Suppository) 10 mg Q2DP PRN [place] CONSTIPATION 02/12/19 18:45 02/13/19 14:23 Cephalexin Monohydrate (Keflex) 500 mg BID PO 05/25/19 09:00 06/07/19 23:59 DC 06/07/19 21:47 Cephalexin Monohydrate (Keflex) 500 mg Q12H PO 06/29/19 09:00 07/08/19 08:59 DC 07/07/19 20:39 Cetirizine HCl (ZyrTEC) 10 mg DAILY PO 02/14/19 09:00 07/22/19 09:22 Cyanocobalamin (Vitamin B12) 500 mcg QHS PO 02/12/19 21:00 07/21/19 22:46 Dextrose/Lactated Ringer's 1,000 ml @ 40 mls/hr Q24H IV 02/12/19 02:30 02/12/19 17:11 DC 02/12/19 03:12 Divalproex Sodium (Depakote Er) 500 mg QHS PO 02/12/19 21:00 07/21/19 22:45 Docusate Sodium (Colace) 100 mg Q12HP PRN PO CONSTIPATION 05/03/19 11:45 07/19/19 20:51 Donepezil HCl (AriCEPT) 10 mg QHS PO 02/12/19 21:00 07/21/19 22:45 Enoxaparin Sodium (Lovenox) 30 mg DAILY SC 02/15/19 09:00 07/22/19 09:22 Home Med (Med Rec Complete!) ASDIRECTED XX 02/12/19 04:00 02/12/19 04:05 DC Hydralazine HCl (Apresoline) 10 mg Q4H IV 02/12/19 14:00 02/13/19 07:26 DC 02/13/19 05:23 Hydralazine HCl (Apresoline) 20 mg Q6H PO 02/12/19 12:00 02/12/19 13:20 DC Hydralazine HCl (Apresoline) 25 mg QID PO 02/13/19 09:00 02/17/19 12:49 DC 02/17/19 11:08 Isosorbide Dinitrate (Isordil) 20 mg Q6H PO 02/13/19 18:00 02/17/19 12:49 DC 02/17/19 11:06 Labetalol HCl (Normodyne, Trandate) 2 mg Q6HP PRN IV BP > 160/100 02/12/19 03:45 02/12/19 12:21 DC Lactated Ringer's 1,000 ml @ 75 mls/hr [id number] IV 04/28/19 08:15 04/29/19 08:06 DC 04/28/19 20:48 Lactated Ringer's 1,000 ml @ 75 mls/hr [id number] IV 04/29/19 14:30 05/01/19 07:51 DC 04/30/19 19:00 Levofloxacin (Levaquin) 250 mg Q24H PO 05/30/19 22:00 06/12/19 23:59 DC 06/12/19 21:39 Levofloxacin (Levaquin) 750 mg Q48H PO 07/01/19 06:00 07/09/19 10:00 DC 07/09/19 10:07 Lisinopril (Prinivil) 5 mg DAILY PO 07/12/19 02:30 07/12/19 10:15 DC 07/12/19 02:57 Lisinopril (Prinivil) 5 mg QHS PO 07/15/19 21:00 07/21/19 22:47 Lisinopril (Prinivil) 5 mg QHS PO 02/21/19 21:00 04/29/19 14:56 DC 04/28/19 20:46 Lisinopril (Prinivil) 10 mg DAILY PO 05/03/19 09:00 05/09/19 09:24 DC 05/07/19 08:07 Lisinopril (Prinivil) 10 mg QHS PO 05/09/19 21:00 07/09/19 09:01 DC 07/08/19 21:36 Lisinopril (Prinivil) 10 mg QHS PO 02/17/19 21:00 02/21/19 06:43 DC 02/20/19 20:31 Lisinopril (Prinivil) 10 mg QHS PO 02/21/19 21:00 02/21/19 08:44 DC Lisinopril (Prinivil) 20 mg QHS PO 02/21/19 21:00 02/21/19 06:46 DC Magnesium Hydroxide (Milk Of Magnesia) 30 ml DAILYPRN PRN PO CONSTIPATION 02/12/19 19:00 02/13/19 08:57 Metronidazole (Flagyl) 500 mg Q8H PO 05/01/19 14:00 05/03/19 10:32 DC 05/03/19 06:56 Miscellaneous (Unresolved Clarification Entry) SEE LABEL COMMENTS DAILY XX 04/15/19 09:00 Cancel Miscellaneous (Unresolved Clarification Entry) SEE LABEL COMMENTS DAILY XX 04/21/19 09:00 04/21/19 16:34 DC Miscellaneous (Unresolved Clarification Entry) SEE LABEL COMMENTS DAILY XX 05/17/19 09:00 05/17/19 11:43 DC Miscellaneous (Unresolved Clarification Entry) SEE LABEL COMMENTS DAILY XX 05/23/19 09:00 05/24/19 12:03 DC Miscellaneous (Unresolved Clarification Entry) SEE LABEL COMMENTS DAILY XX 05/05/19 09:00 05/05/19 11:26 DC Miscellaneous (Unresolved Clarification Entry) SEE LABEL COMMENTS DAILY XX 06/18/19 09:00 06/20/19 08:54 DC Miscellaneous (Unresolved Clarification Entry) SEE LABEL COMMENTS DAILY XX 06/25/19 09:00 06/25/19 11:30 DC Miscellaneous (Unresolved Clarification Entry) SEE LABEL COMMENTS DAILY XX 07/11/19 09:00 07/11/19 11:57 DC Miscellaneous (Unresolved Clarification Entry) SEE LABEL COMMENTS DAILY XX 02/21/19 09:00 02/22/19 06:40 DC Miscellaneous (Unresolved Clarification Entry) SEE LABEL COMMENTS DAILY XX 02/22/19 09:00 02/22/19 12:30 DC Miscellaneous (Unresolved Clarification Entry) SEE LABEL COMMENTS DAILY XX 02/26/19 09:00 02/26/19 12:38 DC Miscellaneous (Unresolved Clarification Entry) SEE LABEL COMMENTS DAILY XX 03/15/19 09:00 03/15/19 10:31 DC Miscellaneous (Unresolved Clarification Entry) SEE LABEL COMMENTS DAILY XX 03/25/19 09:00 03/25/19 12:55 DC Nitroglycerin (Nitrobid 2%) HOLD FOR SBP<140 1 INCH Q4H TOP 02/12/19 13:00 02/13/19 09:28 DC 02/13/19 08:53 Nystatin (Mycostatin Powder, Nystop) groin BID TOP 06/10/19 09:00 07/22/19 09:23 Piperacillin Sod/ Tazobactam Sod 2.25 gm/Dextrose 50 ml @ 100 mls/hr Q6H IV 07/09/19 14:00 07/12/19 08:42 DC 07/12/19 08:16 Piperacillin Sod/ Tazobactam Sod 3.375 gm/Dextrose 50 ml @ 50 mls/hr Q6H IV 04/29/19 15:00 05/01/19 07:51 DC 05/01/19 03:19 Piperacillin Sod/ Tazobactam Sod 3.375 gm/Dextrose 50 ml @ 50 mls/hr Q6H IV 07/09/19 14:00 07/09/19 13:52 DC Sodium Biphosphate/ Sodium Phosphate (Fleet Enema) 1 ea Q3DP PRN [place] CONSTIPATION 02/12/19 19:00 Sodium Chloride 1,000 ml @ 80 mls/hr [id number] IV 07/09/19 09:00 07/11/19 14:05 DC 07/11/19 08:49 Sodium Chloride ([place] Nasal [place]) 2 spray Q2HP PRN NA NASAL DRYNESS 02/13/19 09:30 Sodium Chloride ([place] Nasal [place]) 2 spray TID NA 02/13/19 09:00 03/18/19 09:01 DC 03/17/19 21:33 Tamsulosin HCl (Flomax) 0.4 mg QHS PO 02/12/19 21:00 07/21/19 22:46 Trazodone HCl (Desyrel) 25 mg QHSP PRN PO INSOMNIA 02/21/19 06:45 04/23/19 01:42 Vancomycin HCl 500 mg/Dextrose 110 ml @ 110 mls/hr Q24H IV 07/19/19 12:00 07/20/19 12:22 DC 07/19/19 12:13 Vancomycin HCl 500 mg/IV Miscellaneous Supplies 10 ml @ 10 mls/hr Q8H IV 07/12/19 08:45 07/12/19 09:07 DC Vancomycin HCl 750 mg/IV Miscellaneous Supplies 1 each/ Dextrose 275 ml @ 275 mls/hr Q12H IV 02/12/19 02:30 02/12/19 05:32 DC Vancomycin HCl 750 mg/IV Miscellaneous Supplies 1 each/ Dextrose 275 ml @ 275 mls/hr Q24H IV 04/29/19 16:00 04/30/19 12:06 DC 04/29/19 16:50 Vancomycin HCl 750 mg/IV Miscellaneous Supplies 1 each/ Dextrose 275 ml @ 275 mls/hr Q24H IV 07/16/19 10:00 07/19/19 09:32 DC 07/18/19 09:57 Vancomycin HCl 750 mg/IV Miscellaneous Supplies 1 each/ Dextrose 275 ml @ 275 mls/hr Q36H IV 07/20/19 19:00 07/20/19 14:57 DC Vancomycin HCl 1000 mg/IV Miscellaneous Supplies 1 each/ Dextrose 270 ml @ 270 mls/hr Q18H IV 02/12/19 06:00 02/15/19 06:02 DC 02/14/19 11:20 Vancomycin HCl 1000 mg/IV Miscellaneous Supplies 1 each/ Dextrose 270 ml @ 270 mls/hr Q24H IV 07/13/19 07:00 07/16/19 06:45 DC 07/15/19 07:06 Vancomycin HCl 1000 mg/IV Miscellaneous Supplies 1 each/ Dextrose 270 ml @ 270 mls/hr Q24H IV 02/15/19 12:00 02/15/19 09:27 DC Vitamin D (Vitamin D) 1,000 units QPM PO 02/12/19 21:00 07/21/19 22:46 Allergies Coded Allergies: No Known Allergies (Unverified , 12/09/18) Radha Delgado MD Jul 22, 2019 17:20
[2019-07-22 18:00] VITALS: BP 127/61
[2019-07-22] MEDS: DIVALPROEX 250MG *ER* TAB PO SCH (20:38)
[2019-07-22] MEDS: VITAMIN D 1,000 INTERNATIONAL UNITS TABLET PO SCH (20:38)
[2019-07-22] MEDS: CYANOCOBALAMIN 500 MCG TAB PO SCH (20:39)
[2019-07-22] MEDS: lisinopriL 5 MG TAB PO SCH (20:39)
[2019-07-22] MEDS: DONEPEZIL 5 MG TAB PO SCH (20:39)
[2019-07-22] MEDS: TAMSULOSIN 0.4 MG CAP PO SCH (20:39)
[2019-07-22 22:00] VITALS: BP 151/64
[2019-07-23 02:00] VITALS: BP 135/63
[2019-07-23] MEDS: AMPICILLIN SOD 2 GM in D5W MINI-BAG PLUS 100 ML IV SCH ×4 (05:16→22:20)
[2019-07-23 06:00] VITALS: BP 139/60
[2019-07-23 06:54] LABS: HEMATOCRIT 30.3 % (42.0-52.0); HEMOGLOBIN 9.8 g/dl (13.5-17.5); MEAN CORPUSCULAR HEMOGLOBIN 31.1 pg (27.0-33.0); MEAN CORPUSCULAR HGB CONC 32.3 g/dl (32.0-36.5); MEAN CORPUSCULAR VOLUME 96.2 fl (80.0-96.0); PLATELET COUNT, AUTOMATED 342 10^3/uL (150-450); RED BLOOD COUNT 3.15 10^6/uL (4.30-6.10); WHITE BLOOD COUNT 7.4 10^3/uL (4.0-10.0)
[2019-07-23 07:17] LABS: ALBUMIN 1.9 GM/DL (3.2-5.2); BILIRUBIN,TOTAL 0.6 MG/DL (0.2-1.0); CALCIUM LEVEL 8.4 MG/DL (8.8-10.2); CREATININE FOR GFR 1.23 MG/DL (0.70-1.30); GLOMERULAR FILTRATION RATE 59.7 (>35); TOTAL PROTEIN 6.5 GM/DL (6.4-8.2)
[2019-07-23] MEDS: CETIRIZINE (ZyrTEC) 10 MG TAB PO SCH (09:53)
[2019-07-23] MEDS: ENOXAPARIN 30MG/0.3ML SYRINGE (J1650 PER 10MG) SC SCH (09:53)
[2019-07-23] MEDS: NYSTATIN 100,000 UNITS/GM TOPICAL PWD 15 GM TOP SCH ×2 (09:54→21:07)
[2019-07-23 10:00] VITALS: BP 140/66
[2019-07-23 10:07] LABS: C REACTIVE PROTEIN QUANTITATIV 3.26 MG/DL (0.00-0.30)
[2019-07-23 14:00] VITALS: BP 120/59
[2019-07-23 18:00] VITALS: BP 122/62
--- NOTE | 2019-07-23 18:42 | IPNPDOC ---
Date Seen The patient was seen on 07/23/19. Progress Note SUBJECTIVE: No acute events overnight. Very pleasant today, sitting in bedside chair. Denies SOB, chest pain and has no complaints. OBJECTIVE: VS: Please see below PHYSICAL EXAMINATION: CONSTITUTIONAL: Resting in bed. EYES: PERRLA, EOM intact HENT, MOUTH: Normocephalic, atraumatic, moist mucous membranes NECK: SUPPLE, no JVD, no lymphadenopathy, no carotid bruit CV: Regular rate and rhythm, S1S2 normal, no murmurs/rubs/gallops RESPIRATORY: Clear to auscultation bilaterally, no rales/rhonchi/wheezes GI: BS positive in 4 quadrants, soft, nontender, nondistended, no rebound or guarding, no organomegaly : Deferred MUSCULOSKELETAL: Warm extremities, no mottling bilaterally. Area of amputation appears clean, nonsuppurative, no foul smell, healing scabbed area clean. Contracted lower ext bilaterally. No cyanosis, clubbing, swelling, joint deformity, extremity edema INTEGUMENTARY: Intact, no rashes, no lesions, no erythema NEUROLOGIC: Cranial Nerves II-XII are intact, no focal deficits CURRENT MEDICATIONS: Please see below LABORATORY DATA: Please see below IMAGING: No new imaging. 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 PLAN: (1) Gangrene of toe of right foot Status: Acute Problem Text: Distal dried gangrene, with recent third metatarsal head excision and wound debridement, excisional type, including subcutaneous tissue, tendon and bone 07/10/19. 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 ID deescalated abx to Ampicillin. C/w current treatment. Continue present care and wound care as per orders by podiatry As per vascular surgery patient is not a surgical candidate. Patient's placement is pending. (2) HTN (hypertension) Status: Chronic Problem Text: Continue present medications (3) BPH (benign prostatic hyperplasia) Status: Chronic Problem Text: Continue present medications (4) Dementia Status: Chronic Problem Text: Continue present medications DISPOSITION: C/w treatment above. Awaiting placement to SNF. VS, I&O, 24H, Fishbone Vital Signs/I&O Vital Signs Date Time Temp Pulse Resp B/P (MAP) Pulse Ox O2 Delivery O2 Flow Rate FiO2 07/23/19 18:00 97.0 83 17 122/62 (82) 96 Room Air I&O- Last 24 Hours up to 6 AM 07/23/19 06:00 Intake Total 380 ml Balance 380 ml Laboratory Data 24H LABS Laboratory Tests 2 07/23/19 06:35: Nucleated Red Blood Cells % (auto) 0.0, Anion Gap 7L, Glomerular Filtration Rate 59.7, Calcium Level 8.4L, Total Bilirubin 0.6#, Aspartate Amino Transf (AST/SGOT) 12, Alanine Aminotransferase (ALT/SGPT) 12, Alkaline Phosphatase 65, C-Reactive Protein, Quantitative 3.26H, Total Protein 6.5, Albumin 1.9L, Albumin/Globulin Ratio 0.41L CBC/BMP Laboratory Tests 07/23/19 06:35 Current Medications Current Medications Medications (Trade) Dose Ordered Sig/Hubert Route PRN Reason Start Time Stop Time Status Last Admin Dose Admin Acetaminophen (Tylenol Tab) 650 mg Q4H PRN PO PAIN OR FEVER 02/12/19 02:30 06/16/19 10:09 Amlodipine Besylate (Norvasc) 2.5 mg BID PO 07/12/19 02:30 07/12/19 10:15 DC 07/12/19 08:17 Amlodipine Besylate (Norvasc) 5 mg BID PO 02/21/19 09:00 02/21/19 08:44 DC Amlodipine Besylate (Norvasc) 5 mg DAILY PO 05/10/19 09:00 05/10/19 09:32 DC Amlodipine Besylate (Norvasc) 5 mg QHS PO 04/20/19 21:00 04/29/19 14:56 DC 04/28/19 20:47 Amlodipine Besylate (Norvasc) 10 mg DAILY PO 05/03/19 09:00 05/09/19 09:24 DC 05/07/19 08:07 Amlodipine Besylate (Norvasc) 10 mg DAILY PO 02/12/19 09:00 02/13/19 09:42 DC 02/13/19 08:52 Amlodipine Besylate (Norvasc) 10 mg DAILY PO 02/13/19 09:00 02/13/19 09:45 DC Amlodipine Besylate (Norvasc) 10 mg DAILY PO 02/14/19 09:00 02/21/19 06:46 DC 02/19/19 08:33 Amlodipine Besylate (Norvasc) 10 mg QHS PO 02/21/19 21:00 04/20/19 15:21 DC 04/19/19 20:12 Amoxicillin/ Clavulanate Potassium (Augmentin) 500 mg BID PO 05/01/19 10:00 05/09/19 07:52 DC 05/08/19 19:47 Amoxicillin/ Clavulanate Potassium (Augmentin) 500 mg BID PO 03/07/19 21:00 03/12/19 10:33 DC 03/12/19 09:04 Amoxicillin/ Clavulanate Potassium (Augmentin) 875 mg BID PO 05/01/19 21:00 UNV Amoxicillin/ Clavulanate Potassium (Augmentin) 875 mg BID PO 02/15/19 09:00 02/22/19 08:59 DC 02/21/19 20:29 Ampicillin Sodium 2 gm/Dextrose 100 ml @ 200 mls/hr Q6H IV 07/20/19 17:00 07/23/19 18:00 Ampicillin Sodium/ Sulbactam Sodium 1.5 gm/Dextrose 50 ml @ 100 mls/hr Q6H IV 02/12/19 05:00 02/15/19 09:27 DC 02/15/19 05:19 Ampicillin Sodium/ Sulbactam Sodium 3 gm/Dextrose 100 ml @ 200 mls/hr Q12H IV 03/06/19 23:00 03/07/19 17:17 DC 03/07/19 11:39 Atenolol (Tenormin) 12.5 mg BID PO 02/13/19 09:00 02/15/19 14:32 DC 02/14/19 20:57 Azithromycin (Zithromax Tab) 500 mg DAILY PO 03/07/19 09:00 03/13/19 14:18 DC 03/13/19 10:03 Azithromycin 500 mg/IV Miscellaneous Supplies 1 each/ Dextrose 255 ml @ 255 mls/hr Q24H IV 03/06/19 00:00 03/07/19 17:17 DC 03/07/19 00:44 Bisacodyl (Dulcolax Suppository) 10 mg Q2DP PRN [place] CONSTIPATION 02/12/19 18:45 02/13/19 14:23 Cephalexin Monohydrate (Keflex) 500 mg BID PO 05/25/19 09:00 06/07/19 23:59 DC 06/07/19 21:47 Cephalexin Monohydrate (Keflex) 500 mg Q12H PO 06/29/19 09:00 07/08/19 08:59 DC 07/07/19 20:39 Cetirizine HCl (ZyrTEC) 10 mg DAILY PO 02/14/19 09:00 07/23/19 09:53 Cyanocobalamin (Vitamin B12) 500 mcg QHS PO 02/12/19 21:00 07/22/19 20:39 Dextrose/Lactated Ringer's 1,000 ml @ 40 mls/hr Q24H IV 02/12/19 02:30 02/12/19 17:11 DC 02/12/19 03:12 Divalproex Sodium (Depakote Er) 500 mg QHS PO 02/12/19 21:00 07/22/19 20:38 Docusate Sodium (Colace) 100 mg Q12HP PRN PO CONSTIPATION 05/03/19 11:45 07/19/19 20:51 Donepezil HCl (AriCEPT) 10 mg QHS PO 02/12/19 21:00 07/22/19 20:39 Enoxaparin Sodium (Lovenox) 30 mg DAILY SC 02/15/19 09:00 07/23/19 09:53 Home Med (Med Rec Complete!) ASDIRECTED XX 02/12/19 04:00 02/12/19 04:05 DC Hydralazine HCl (Apresoline) 10 mg Q4H IV 02/12/19 14:00 02/13/19 07:26 DC 02/13/19 05:23 Hydralazine HCl (Apresoline) 20 mg Q6H PO 02/12/19 12:00 02/12/19 13:20 DC Hydralazine HCl (Apresoline) 25 mg QID PO 02/13/19 09:00 02/17/19 12:49 DC 02/17/19 11:08 Isosorbide Dinitrate (Isordil) 20 mg Q6H PO 02/13/19 18:00 02/17/19 12:49 DC 02/17/19 11:06 Labetalol HCl (Normodyne, Trandate) 2 mg Q6HP PRN IV BP > 160/100 02/12/19 03:45 02/12/19 12:21 DC Lactated Ringer's 1,000 ml @ 75 mls/hr [id number] IV 04/28/19 08:15 04/29/19 08:06 DC 04/28/19 20:48 Lactated Ringer's 1,000 ml @ 75 mls/hr [id number] IV 04/29/19 14:30 05/01/19 07:51 DC 04/30/19 19:00 Levofloxacin (Levaquin) 250 mg Q24H PO 05/30/19 22:00 06/12/19 23:59 DC 06/12/19 21:39 Levofloxacin (Levaquin) 750 mg Q48H PO 07/01/19 06:00 07/09/19 10:00 DC 07/09/19 10:07 Lisinopril (Prinivil) 5 mg DAILY PO 07/12/19 02:30 07/12/19 10:15 DC 07/12/19 02:57 Lisinopril (Prinivil) 5 mg QHS PO 07/15/19 21:00 07/22/19 20:39 Lisinopril (Prinivil) 5 mg QHS PO 02/21/19 21:00 04/29/19 14:56 DC 04/28/19 20:46 Lisinopril (Prinivil) 10 mg DAILY PO 05/03/19 09:00 05/09/19 09:24 DC 05/07/19 08:07 Lisinopril (Prinivil) 10 mg QHS PO 05/09/19 21:00 07/09/19 09:01 DC 07/08/19 21:36 Lisinopril (Prinivil) 10 mg QHS PO 02/17/19 21:00 02/21/19 06:43 DC 02/20/19 20:31 Lisinopril (Prinivil) 10 mg QHS PO 02/21/19 21:00 02/21/19 08:44 DC Lisinopril (Prinivil) 20 mg QHS PO 02/21/19 21:00 02/21/19 06:46 DC Magnesium Hydroxide (Milk Of Magnesia) 30 ml DAILYPRN PRN PO CONSTIPATION 02/12/19 19:00 02/13/19 08:57 Metronidazole (Flagyl) 500 mg Q8H PO 05/01/19 14:00 05/03/19 10:32 DC 05/03/19 06:56 Miscellaneous (Unresolved Clarification Entry) SEE LABEL COMMENTS DAILY XX 04/15/19 09:00 Cancel Miscellaneous (Unresolved Clarification Entry) SEE LABEL COMMENTS DAILY XX 04/21/19 09:00 04/21/19 16:34 DC Miscellaneous (Unresolved Clarification Entry) SEE LABEL COMMENTS DAILY XX 05/17/19 09:00 05/17/19 11:43 DC Miscellaneous (Unresolved Clarification Entry) SEE LABEL COMMENTS DAILY XX 05/23/19 09:00 05/24/19 12:03 DC Miscellaneous (Unresolved Clarification Entry) SEE LABEL COMMENTS DAILY XX 05/05/19 09:00 05/05/19 11:26 DC Miscellaneous (Unresolved Clarification Entry) SEE LABEL COMMENTS DAILY XX 06/18/19 09:00 06/20/19 08:54 DC Miscellaneous (Unresolved Clarification Entry) SEE LABEL COMMENTS DAILY XX 06/25/19 09:00 06/25/19 11:30 DC Miscellaneous (Unresolved Clarification Entry) SEE LABEL COMMENTS DAILY XX 07/11/19 09:00 07/11/19 11:57 DC Miscellaneous (Unresolved Clarification Entry) SEE LABEL COMMENTS DAILY XX 02/21/19 09:00 02/22/19 06:40 DC Miscellaneous (Unresolved Clarification Entry) SEE LABEL COMMENTS DAILY XX 02/22/19 09:00 02/22/19 12:30 DC Miscellaneous (Unresolved Clarification Entry) SEE LABEL COMMENTS DAILY XX 02/26/19 09:00 02/26/19 12:38 DC Miscellaneous (Unresolved Clarification Entry) SEE LABEL COMMENTS DAILY XX 03/15/19 09:00 03/15/19 10:31 DC Miscellaneous (Unresolved Clarification Entry) SEE LABEL COMMENTS DAILY XX 03/25/19 09:00 03/25/19 12:55 DC Nitroglycerin (Nitrobid 2%) HOLD FOR SBP<140 1 INCH Q4H TOP 02/12/19 13:00 02/13/19 09:28 DC 02/13/19 08:53 Nystatin (Mycostatin Powder, Nystop) groin BID TOP 06/10/19 09:00 07/23/19 09:54 Piperacillin Sod/ Tazobactam Sod 2.25 gm/Dextrose 50 ml @ 100 mls/hr Q6H IV 07/09/19 14:00 07/12/19 08:42 DC 07/12/19 08:16 Piperacillin Sod/ Tazobactam Sod 3.375 gm/Dextrose 50 ml @ 50 mls/hr Q6H IV 04/29/19 15:00 05/01/19 07:51 DC 05/01/19 03:19 Piperacillin Sod/ Tazobactam Sod 3.375 gm/Dextrose 50 ml @ 50 mls/hr Q6H IV 07/09/19 14:00 07/09/19 13:52 DC Sodium Biphosphate/ Sodium Phosphate (Fleet Enema) 1 ea Q3DP PRN [place] CONSTIPATION 02/12/19 19:00 Sodium Chloride 1,000 ml @ 80 mls/hr [id number] IV 07/09/19 09:00 07/11/19 14:05 DC 07/11/19 08:49 Sodium Chloride ([place] Nasal [place]) 2 spray Q2HP PRN NA NASAL DRYNESS 02/13/19 09:30 Sodium Chloride ([place] Nasal [place]) 2 spray TID NA 02/13/19 09:00 03/18/19 09:01 DC 03/17/19 21:33 Tamsulosin HCl (Flomax) 0.4 mg QHS PO 02/12/19 21:00 07/22/19 20:39 Trazodone HCl (Desyrel) 25 mg QHSP PRN PO INSOMNIA 02/21/19 06:45 04/23/19 01:42 Vancomycin HCl 500 mg/Dextrose 110 ml @ 110 mls/hr Q24H IV 07/19/19 12:00 07/20/19 12:22 DC 07/19/19 12:13 Vancomycin HCl 500 mg/IV Miscellaneous Supplies 10 ml @ 10 mls/hr Q8H IV 07/12/19 08:45 07/12/19 09:07 DC Vancomycin HCl 750 mg/IV Miscellaneous Supplies 1 each/ Dextrose 275 ml @ 275 mls/hr Q12H IV 02/12/19 02:30 02/12/19 05:32 DC Vancomycin HCl 750 mg/IV Miscellaneous Supplies 1 each/ Dextrose 275 ml @ 275 mls/hr Q24H IV 04/29/19 16:00 04/30/19 12:06 DC 04/29/19 16:50 Vancomycin HCl 750 mg/IV Miscellaneous Supplies 1 each/ Dextrose 275 ml @ 275 mls/hr Q24H IV 07/16/19 10:00 07/19/19 09:32 DC 07/18/19 09:57 Vancomycin HCl 750 mg/IV Miscellaneous Supplies 1 each/ Dextrose 275 ml @ 275 mls/hr Q36H IV 07/20/19 19:00 07/20/19 14:57 DC Vancomycin HCl 1000 mg/IV Miscellaneous Supplies 1 each/ Dextrose 270 ml @ 270 mls/hr Q18H IV 02/12/19 06:00 02/15/19 06:02 DC 02/14/19 11:20 Vancomycin HCl 1000 mg/IV Miscellaneous Supplies 1 each/ Dextrose 270 ml @ 270 mls/hr Q24H IV 07/13/19 07:00 07/16/19 06:45 DC 07/15/19 07:06 Vancomycin HCl 1000 mg/IV Miscellaneous Supplies 1 each/ Dextrose 270 ml @ 270 mls/hr Q24H IV 02/15/19 12:00 02/15/19 09:27 DC Vitamin D (Vitamin D) 1,000 units QPM PO 02/12/19 21:00 07/22/19 20:38 Allergies Coded Allergies: No Known Allergies (Unverified , 12/09/18) Radha Delgado MD Jul 23, 2019 18:42
[2019-07-23] MEDS: TAMSULOSIN 0.4 MG CAP PO SCH (21:06)
[2019-07-23] MEDS: CYANOCOBALAMIN 500 MCG TAB PO SCH (21:06)
[2019-07-23] MEDS: DIVALPROEX 250MG *ER* TAB PO SCH (21:06)
[2019-07-23] MEDS: DONEPEZIL 5 MG TAB PO SCH (21:06)
[2019-07-23] MEDS: VITAMIN D 1,000 INTERNATIONAL UNITS TABLET PO SCH (21:06)
[2019-07-23] MEDS: lisinopriL 5 MG TAB PO SCH (21:07)
[2019-07-23] MEDS: ACETAMINOPHEN TAB 650MG DOSE (2X325MG) PO PRN (21:08)
[2019-07-23 22:00] VITALS: BP 118/57
[2019-07-24 02:00] VITALS: BP 134/54
[2019-07-24] MEDS: AMPICILLIN SOD 2 GM in D5W MINI-BAG PLUS 100 ML IV SCH ×4 (04:04→22:19)
[2019-07-24 06:00] VITALS: BP 153/91
[2019-07-24 06:44] LABS: HEMATOCRIT 30.8 % (42.0-52.0); HEMOGLOBIN 10.1 g/dl (13.5-17.5); MEAN CORPUSCULAR HEMOGLOBIN 31.3 pg (27.0-33.0); MEAN CORPUSCULAR HGB CONC 32.8 g/dl (32.0-36.5); MEAN CORPUSCULAR VOLUME 95.4 fl (80.0-96.0); PLATELET COUNT, AUTOMATED 318 10^3/uL (150-450); RED BLOOD COUNT 3.23 10^6/uL (4.30-6.10); WHITE BLOOD COUNT 7.5 10^3/uL (4.0-10.0)
[2019-07-24 07:15] LABS: ALBUMIN 1.9 GM/DL (3.2-5.2); BILIRUBIN,TOTAL 0.3 MG/DL (0.2-1.0); CALCIUM LEVEL 8.4 MG/DL (8.8-10.2); CREATININE FOR GFR 1.79 MG/DL (0.70-1.30); GLOMERULAR FILTRATION RATE 38.7 (>35); POTASSIUM SERUM 4.2 MEQ/L (3.5-5.1); TOTAL PROTEIN 6.5 GM/DL (6.4-8.2)
--- NOTE | 2019-07-24 07:41 | IPN ---
DATE: 07/23/2019 SUBJECTIVE: Cristian is seen and evaluated this morning, sitting up comfortably in a chair. He is more talkative and awake this morning. He has just finished breakfast, which the psychiatric nursing aide notes he ate about 50% of. He has been working with speech therapy to advance his diet and needs assistance with meals. He has a history of dementia and is a poor historian. OBJECTIVE: Vital Signs: Temperature 97.9, heart rate 68, respiratory rate 20, blood pressure 140/66, oxygen saturation 96% on room air. General: Patient is sitting up in a chair, appears thin, in no acute distress. HEENT: Normocephalic, atraumatic. Sclerae anicteric. Moist mucous membranes. Lungs: Clear to auscultation bilaterally. No wheezing, rhonchi, or rales. Cardiovascular: Regular rate and rhythm. Normal S1 and S2. No murmurs, rubs, or gallops appreciated. Abdomen: Soft, nontender, nondistended. Bowel sounds present. Extremities: Right 4th and 5th digits and metatarsal heads have been amputated with an open wound in the area and a neighboring area of gangrenous tissue. The wound appears clean and there is no purulence. The wound measures 3 cm x 2 cm x 2.1 cm deep. The necrotic tissue measures 3.5 cm 2 cm. Neurologic: Oriented only to person. LABORATORY DATA: White blood cell count 7.4, hemoglobin 9.6, hematocrit 30.3, platelet count 342. Sodium 138, potassium 4.0, chloride 104, carbon dioxide 27, BUN 19, creatinine 1.23, glucose 77. CRP 3.26. Vancomycin trough 21.0. Two wounds cultures positive for Enterococcus faecalis, sensitive to ampicillin. Blood cultures times two from 07/09/2019 negative after 5 days. IMPRESSION/PLAN: Chronic osteomyelitis and distal dry gangrene of the right 4th and 5th toes, status post amputation of the right 4th and 5th digits with progressive disease involving the 2nd and 3rd metatarsal bones. He was initially started on Levaquin, which was switched to Zosyn on 07/09/2019 by the infectious disease team. This was changed to vancomycin based on culture results and further de-escalated to ampicillin based on sensitivities. He will require a 6 week course of antibiotics, starting from 07/09/2019 with Zosyn started as this was appropriate coverage. Antibiotics will be continued until 08/20/2019 to complete the full course. Continue with wound care. Currently he is waiting placement at a retirement pending approval of Medicaid application to [facility] Department of Workgroup Leader.
[2019-07-24] MEDS: NS 1,000 ML IV SCH ×2 (08:46→22:17)
[2019-07-24] MEDS: CETIRIZINE (ZyrTEC) 10 MG TAB PO SCH (08:46)
[2019-07-24] MEDS: ENOXAPARIN 30MG/0.3ML SYRINGE (J1650 PER 10MG) SC SCH (08:46)
[2019-07-24] MEDS: NYSTATIN 100,000 UNITS/GM TOPICAL PWD 15 GM TOP SCH ×2 (08:47→22:19)
[2019-07-24 10:00] VITALS: BP 111/55
[2019-07-24 14:00] VITALS: BP 112/61
--- NOTE | 2019-07-24 15:48 | IPNPDOC ---
Date Seen The patient was seen on 07/24/19. Progress Note SUBJECTIVE: Cr increased to 1.79 from 1.23, started IVFs at 80 cc/hr. Inflammatory markers remain high, rechecking in AM. Unfortunately, patient will continue to become dehydrated unless prompted to eat and drink. Adding nursing order to offer fluids Q2 hrs while patient is awake. Very pleasant again today, sitting in bedside chair, with no acute complaints. Denies SOB, chest pain and has no complaints. OBJECTIVE: VS: Please see below PHYSICAL EXAMINATION: CONSTITUTIONAL: Resting in bed. EYES: PERRLA, EOM intact HENT, MOUTH: Normocephalic, atraumatic, moist mucous membranes NECK: SUPPLE, no JVD, no lymphadenopathy, no carotid bruit CV: Regular rate and rhythm, S1S2 normal, no murmurs/rubs/gallops RESPIRATORY: Clear to auscultation bilaterally, no rales/rhonchi/wheezes GI: BS positive in 4 quadrants, soft, nontender, nondistended, no rebound or guarding, no organomegaly : Deferred MUSCULOSKELETAL: Warm extremities, no mottling bilaterally. Area of amputation appears clean, nonsuppurative, no foul smell, healing scabbed area clean. Contracted lower ext bilaterally. No cyanosis, clubbing, swelling, joint deformity, extremity edema INTEGUMENTARY: Intact, no rashes, no lesions, no erythema NEUROLOGIC: Cranial Nerves II-XII are intact, no focal deficits CURRENT MEDICATIONS: Please see below LABORATORY DATA: Please see below IMAGING: No new imaging. 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 PLAN: 1. Acute kidney injury likely 2/2 to poor PO intake 2/2 to dementia. Status: Acute Problem Text: IVFs at 80 cc/hr, encouraging fluids Q2 hrs by nursing to see if this helps. 2. Gangrene of toe of right foot Status: Acute Problem Text: CRP higher on 07/23/19. ESR and CRP ordered for AM. Distal dried gangrene, with recent third metatarsal head excision and wound debridement, excisional type, including subcutaneous tissue, tendon and bone 07/10/19. 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 F/u markers closely as this may be infection worsening. C/w current treatment until 08/20/19. Continue present care and wound care as per orders by podiatry. As per vascular surgery patient is not a surgical candidate. Patient's placement is pending. 3. HTN (hypertension) Status: Chronic Problem Text: Continue present medications 4. BPH (benign prostatic hyperplasia) Status: Chronic Problem Text: Continue present medications 5. Dementia Status: Chronic Problem Text: Continue present medications 6. DVT px- Enoxaparin. DISPOSITION: C/w treatment above. Awaiting placement to SNF. VS, I&O, 24H, Fishbone Vital Signs/I&O Vital Signs Date Time Temp Pulse Resp B/P (MAP) Pulse Ox O2 Delivery O2 Flow Rate FiO2 07/24/19 14:00 98.6 73 18 112/61 (78) 96 Room Air I&O- Last 24 Hours up to 6 AM 07/24/19 06:00 Intake Total 1100 ml Output Total 0 ml Balance 1100 ml Laboratory Data 24H LABS Laboratory Tests 2 07/24/19 06:26: Nucleated Red Blood Cells % (auto) 0.0, Anion Gap 7L, Glomerular Filtration Rate 38.7, Calcium Level 8.4L, Total Bilirubin 0.3, Aspartate Amino Transf (AST/SGOT) 13, Alanine Aminotransferase (ALT/SGPT) 13, Alkaline Phosphatase 62, Total Protein 6.5, Albumin 1.9L, Albumin/Globulin Ratio 0.41L CBC/BMP Laboratory Tests 07/24/19 06:26 Current Medications Current Medications Medications (Trade) Dose Ordered Sig/Hubert Route PRN Reason Start Time Stop Time Status Last Admin Dose Admin Acetaminophen (Tylenol Tab) 650 mg Q4H PRN PO PAIN OR FEVER 02/12/19 02:30 07/23/19 21:08 Amlodipine Besylate (Norvasc) 2.5 mg BID PO 07/12/19 02:30 07/12/19 10:15 DC 07/12/19 08:17 Amlodipine Besylate (Norvasc) 5 mg BID PO 02/21/19 09:00 02/21/19 08:44 DC Amlodipine Besylate (Norvasc) 5 mg DAILY PO 05/10/19 09:00 05/10/19 09:32 DC Amlodipine Besylate (Norvasc) 5 mg QHS PO 04/20/19 21:00 04/29/19 14:56 DC 04/28/19 20:47 Amlodipine Besylate (Norvasc) 10 mg DAILY PO 05/03/19 09:00 05/09/19 09:24 DC 05/07/19 08:07 Amlodipine Besylate (Norvasc) 10 mg DAILY PO 02/12/19 09:00 02/13/19 09:42 DC 02/13/19 08:52 Amlodipine Besylate (Norvasc) 10 mg DAILY PO 02/13/19 09:00 02/13/19 09:45 DC Amlodipine Besylate (Norvasc) 10 mg DAILY PO 02/14/19 09:00 02/21/19 06:46 DC 02/19/19 08:33 Amlodipine Besylate (Norvasc) 10 mg QHS PO 02/21/19 21:00 04/20/19 15:21 DC 04/19/19 20:12 Amoxicillin/ Clavulanate Potassium (Augmentin) 500 mg BID PO 05/01/19 10:00 05/09/19 07:52 DC 05/08/19 19:47 Amoxicillin/ Clavulanate Potassium (Augmentin) 500 mg BID PO 03/07/19 21:00 03/12/19 10:33 DC 03/12/19 09:04 Amoxicillin/ Clavulanate Potassium (Augmentin) 875 mg BID PO 05/01/19 21:00 UNV Amoxicillin/ Clavulanate Potassium (Augmentin) 875 mg BID PO 02/15/19 09:00 02/22/19 08:59 DC 02/21/19 20:29 Ampicillin Sodium 2 gm/Dextrose 100 ml @ 200 mls/hr Q6H IV 07/20/19 17:00 07/24/19 11:05 Ampicillin Sodium/ Sulbactam Sodium 1.5 gm/Dextrose 50 ml @ 100 mls/hr Q6H IV 02/12/19 05:00 02/15/19 09:27 DC 02/15/19 05:19 Ampicillin Sodium/ Sulbactam Sodium 3 gm/Dextrose 100 ml @ 200 mls/hr Q12H IV 03/06/19 23:00 03/07/19 17:17 DC 03/07/19 11:39 Atenolol (Tenormin) 12.5 mg BID PO 02/13/19 09:00 02/15/19 14:32 DC 02/14/19 20:57 Azithromycin (Zithromax Tab) 500 mg DAILY PO 03/07/19 09:00 03/13/19 14:18 DC 03/13/19 10:03 Azithromycin 500 mg/IV Miscellaneous Supplies 1 each/ Dextrose 255 ml @ 255 mls/hr Q24H IV 03/06/19 00:00 03/07/19 17:17 DC 03/07/19 00:44 Bisacodyl (Dulcolax Suppository) 10 mg Q2DP PRN [place] CONSTIPATION 02/12/19 18:45 02/13/19 14:23 Cephalexin Monohydrate (Keflex) 500 mg BID PO 05/25/19 09:00 06/07/19 23:59 DC 06/07/19 21:47 Cephalexin Monohydrate (Keflex) 500 mg Q12H PO 06/29/19 09:00 07/08/19 08:59 DC 07/07/19 20:39 Cetirizine HCl (ZyrTEC) 10 mg DAILY PO 02/14/19 09:00 07/24/19 08:46 Cyanocobalamin (Vitamin B12) 500 mcg QHS PO 02/12/19 21:00 07/23/19 21:06 Dextrose/Lactated Ringer's 1,000 ml @ 40 mls/hr Q24H IV 02/12/19 02:30 02/12/19 17:11 DC 02/12/19 03:12 Divalproex Sodium (Depakote Er) 500 mg QHS PO 02/12/19 21:00 07/23/19 21:06 Docusate Sodium (Colace) 100 mg Q12HP PRN PO CONSTIPATION 05/03/19 11:45 07/19/19 20:51 Donepezil HCl (AriCEPT) 10 mg QHS PO 02/12/19 21:00 07/23/19 21:06 Enoxaparin Sodium (Lovenox) 30 mg DAILY SC 02/15/19 09:00 07/24/19 08:46 Home Med (Med Rec Complete!) ASDIRECTED XX 02/12/19 04:00 02/12/19 04:05 DC Hydralazine HCl (Apresoline) 10 mg Q4H IV 02/12/19 14:00 02/13/19 07:26 DC 02/13/19 05:23 Hydralazine HCl (Apresoline) 20 mg Q6H PO 02/12/19 12:00 02/12/19 13:20 DC Hydralazine HCl (Apresoline) 25 mg QID PO 02/13/19 09:00 02/17/19 12:49 DC 02/17/19 11:08 Isosorbide Dinitrate (Isordil) 20 mg Q6H PO 02/13/19 18:00 02/17/19 12:49 DC 02/17/19 11:06 Labetalol HCl (Normodyne, Trandate) 2 mg Q6HP PRN IV BP > 160/100 02/12/19 03:45 02/12/19 12:21 DC Lactated Ringer's 1,000 ml @ 75 mls/hr [id number] IV 04/28/19 08:15 04/29/19 08:06 DC 04/28/19 20:48 Lactated Ringer's 1,000 ml @ 75 mls/hr [id number] IV 04/29/19 14:30 05/01/19 07:51 DC 04/30/19 19:00 Levofloxacin (Levaquin) 250 mg Q24H PO 05/30/19 22:00 06/12/19 23:59 DC 06/12/19 21:39 Levofloxacin (Levaquin) 750 mg Q48H PO 07/01/19 06:00 07/09/19 10:00 DC 07/09/19 10:07 Lisinopril (Prinivil) 5 mg DAILY PO 07/12/19 02:30 07/12/19 10:15 DC 07/12/19 02:57 Lisinopril (Prinivil) 5 mg QHS PO 07/15/19 21:00 07/23/19 21:07 Lisinopril (Prinivil) 5 mg QHS PO 02/21/19 21:00 04/29/19 14:56 DC 04/28/19 20:46 Lisinopril (Prinivil) 10 mg DAILY PO 05/03/19 09:00 05/09/19 09:24 DC 05/07/19 08:07 Lisinopril (Prinivil) 10 mg QHS PO 05/09/19 21:00 07/09/19 09:01 DC 07/08/19 21:36 Lisinopril (Prinivil) 10 mg QHS PO 02/17/19 21:00 02/21/19 06:43 DC 02/20/19 20:31 Lisinopril (Prinivil) 10 mg QHS PO 02/21/19 21:00 02/21/19 08:44 DC Lisinopril (Prinivil) 20 mg QHS PO 02/21/19 21:00 02/21/19 06:46 DC Magnesium Hydroxide (Milk Of Magnesia) 30 ml DAILYPRN PRN PO CONSTIPATION 02/12/19 19:00 02/13/19 08:57 Metronidazole (Flagyl) 500 mg Q8H PO 05/01/19 14:00 05/03/19 10:32 DC 05/03/19 06:56 Miscellaneous (Unresolved Clarification Entry) SEE LABEL COMMENTS DAILY XX 04/15/19 09:00 Cancel Miscellaneous (Unresolved Clarification Entry) SEE LABEL COMMENTS DAILY XX 04/21/19 09:00 04/21/19 16:34 DC Miscellaneous (Unresolved Clarification Entry) SEE LABEL COMMENTS DAILY XX 05/17/19 09:00 05/17/19 11:43 DC Miscellaneous (Unresolved Clarification Entry) SEE LABEL COMMENTS DAILY XX 05/23/19 09:00 05/24/19 12:03 DC Miscellaneous (Unresolved Clarification Entry) SEE LABEL COMMENTS DAILY XX 05/05/19 09:00 05/05/19 11:26 DC Miscellaneous (Unresolved Clarification Entry) SEE LABEL COMMENTS DAILY XX 06/18/19 09:00 06/20/19 08:54 DC Miscellaneous (Unresolved Clarification Entry) SEE LABEL COMMENTS DAILY XX 06/25/19 09:00 06/25/19 11:30 DC Miscellaneous (Unresolved Clarification Entry) SEE LABEL COMMENTS DAILY XX 07/11/19 09:00 07/11/19 11:57 DC Miscellaneous (Unresolved Clarification Entry) SEE LABEL COMMENTS DAILY XX 02/21/19 09:00 02/22/19 06:40 DC Miscellaneous (Unresolved Clarification Entry) SEE LABEL COMMENTS DAILY XX 02/22/19 09:00 02/22/19 12:30 DC Miscellaneous (Unresolved Clarification Entry) SEE LABEL COMMENTS DAILY XX 02/26/19 09:00 02/26/19 12:38 DC Miscellaneous (Unresolved Clarification Entry) SEE LABEL COMMENTS DAILY XX 03/15/19 09:00 03/15/19 10:31 DC Miscellaneous (Unresolved Clarification Entry) SEE LABEL COMMENTS DAILY XX 03/25/19 09:00 03/25/19 12:55 DC Nitroglycerin (Nitrobid 2%) HOLD FOR SBP<140 1 INCH Q4H TOP 02/12/19 13:00 02/13/19 09:28 DC 02/13/19 08:53 Nystatin (Mycostatin Powder, Nystop) groin BID TOP 06/10/19 09:00 07/24/19 08:47 Piperacillin Sod/ Tazobactam Sod 2.25 gm/Dextrose 50 ml @ 100 mls/hr Q6H IV 07/09/19 14:00 07/12/19 08:42 DC 07/12/19 08:16 Piperacillin Sod/ Tazobactam Sod 3.375 gm/Dextrose 50 ml @ 50 mls/hr Q6H IV 04/29/19 15:00 05/01/19 07:51 DC 05/01/19 03:19 Piperacillin Sod/ Tazobactam Sod 3.375 gm/Dextrose 50 ml @ 50 mls/hr Q6H IV 07/09/19 14:00 07/09/19 13:52 DC Sodium Biphosphate/ Sodium Phosphate (Fleet Enema) 1 ea Q3DP PRN [place] CONSTIPATION 02/12/19 19:00 Sodium Chloride 1,000 ml @ 80 mls/hr [id number] IV 07/09/19 09:00 07/11/19 14:05 DC 07/11/19 08:49 Sodium Chloride 1,000 ml @ 80 mls/hr [id number] IV 07/24/19 09:00 07/24/19 08:46 Sodium Chloride ([place] Nasal [place]) 2 spray Q2HP PRN NA NASAL DRYNESS 02/13/19 09:30 Sodium Chloride ([place] Nasal [place]) 2 spray TID NA 02/13/19 09:00 03/18/19 09:01 DC 03/17/19 21:33 Tamsulosin HCl (Flomax) 0.4 mg QHS PO 02/12/19 21:00 07/23/19 21:06 Trazodone HCl (Desyrel) 25 mg QHSP PRN PO INSOMNIA 02/21/19 06:45 04/23/19 01:42 Vancomycin HCl 500 mg/Dextrose 110 ml @ 110 mls/hr Q24H IV 07/19/19 12:00 07/20/19 12:22 DC 07/19/19 12:13 Vancomycin HCl 500 mg/IV Miscellaneous Supplies 10 ml @ 10 mls/hr Q8H IV 07/12/19 08:45 07/12/19 09:07 DC Vancomycin HCl 750 mg/IV Miscellaneous Supplies 1 each/ Dextrose 275 ml @ 275 mls/hr Q12H IV 02/12/19 02:30 02/12/19 05:32 DC Vancomycin HCl 750 mg/IV Miscellaneous Supplies 1 each/ Dextrose 275 ml @ 275 mls/hr Q24H IV 04/29/19 16:00 04/30/19 12:06 DC 04/29/19 16:50 Vancomycin HCl 750 mg/IV Miscellaneous Supplies 1 each/ Dextrose 275 ml @ 275 mls/hr Q24H IV 07/16/19 10:00 07/19/19 09:32 DC 07/18/19 09:57 Vancomycin HCl 750 mg/IV Miscellaneous Supplies 1 each/ Dextrose 275 ml @ 275 mls/hr Q36H IV 07/20/19 19:00 07/20/19 14:57 DC Vancomycin HCl 1000 mg/IV Miscellaneous Supplies 1 each/ Dextrose 270 ml @ 270 mls/hr Q18H IV 02/12/19 06:00 02/15/19 06:02 DC 02/14/19 11:20 Vancomycin HCl 1000 mg/IV Miscellaneous Supplies 1 each/ Dextrose 270 ml @ 270 mls/hr Q24H IV 07/13/19 07:00 07/16/19 06:45 DC 07/15/19 07:06 Vancomycin HCl 1000 mg/IV Miscellaneous Supplies 1 each/ Dextrose 270 ml @ 270 mls/hr Q24H IV 02/15/19 12:00 02/15/19 09:27 DC Vitamin D (Vitamin D) 1,000 units QPM PO 02/12/19 21:00 07/23/19 21:06 Allergies Coded Allergies: No Known Allergies (Unverified , 12/09/18) Radha Delgado MD Jul 24, 2019 15:48
[2019-07-24 18:00] VITALS: BP 102/54
[2019-07-24 22:00] VITALS: BP 176/68
[2019-07-24] MEDS: DONEPEZIL 5 MG TAB PO SCH (22:17)
[2019-07-24] MEDS: lisinopriL 5 MG TAB PO SCH (22:18)
[2019-07-24] MEDS: TAMSULOSIN 0.4 MG CAP PO SCH (22:18)
[2019-07-24] MEDS: DIVALPROEX 250MG *ER* TAB PO SCH (22:18)
[2019-07-24] MEDS: VITAMIN D 1,000 INTERNATIONAL UNITS TABLET PO SCH (22:18)
[2019-07-24] MEDS: CYANOCOBALAMIN 500 MCG TAB PO SCH (22:18)
[2019-07-25] VITALS (8 sets, daily range): BP systolic 116–172; BP diastolic 60–80
[2019-07-25] MEDS: AMPICILLIN SOD 2 GM in D5W MINI-BAG PLUS 100 ML IV SCH ×4 (05:23→22:46)
[2019-07-25] MEDS ORDERED: **hydrALAZINE** 10 MG TAB PO ONE (05:45)
[2019-07-25 06:44] LABS: HEMATOCRIT 28.8 % (42.0-52.0); HEMOGLOBIN 9.2 g/dl (13.5-17.5); MEAN CORPUSCULAR HEMOGLOBIN 30.7 pg (27.0-33.0); MEAN CORPUSCULAR HGB CONC 31.9 g/dl (32.0-36.5); PLATELET COUNT, AUTOMATED 287 10^3/uL (150-450); WHITE BLOOD COUNT 6.1 10^3/uL (4.0-10.0)
[2019-07-25 07:06] LABS: ALBUMIN 1.7 GM/DL (3.2-5.2); BILIRUBIN,TOTAL 0.2 MG/DL (0.2-1.0); C REACTIVE PROTEIN QUANTITATIV 2.07 MG/DL (0.00-0.30); CALCIUM LEVEL 7.6 MG/DL (8.8-10.2); CREATININE FOR GFR 1.8 MG/DL (0.70-1.30); GLOMERULAR FILTRATION RATE 38.5 (>35); POTASSIUM SERUM 3.8 MEQ/L (3.5-5.1); TOTAL PROTEIN 6.1 GM/DL (6.4-8.2)
[2019-07-25 07:16] LABS: ERYTHROCYTE SEDIMENTATION RATE 82 mm/hr (0-20)
[2019-07-25] MEDS: CETIRIZINE (ZyrTEC) 10 MG TAB PO SCH (08:17)
[2019-07-25] MEDS: NS 1,000 ML IV SCH ×2 (08:17→16:28)
[2019-07-25] MEDS: NYSTATIN 100,000 UNITS/GM TOPICAL PWD 15 GM TOP SCH ×2 (08:17→21:17)
[2019-07-25] MEDS: HEPARIN SOD (PORCINE) 5000UNITS/ML VIAL (J1644 PER 1000UNITS) SQ SCH ×2 (14:13→21:18)
--- NOTE | 2019-07-25 15:55 | IPNPDOC ---
Date Seen The patient was seen on 07/25/19. Progress Note SUBJECTIVE: Stopped IVFs overnight due to HTN, restarted this AM due to increased Cr of 1.8. Awake with no complaints. Denies SOB, chest pain. OBJECTIVE: VS: Please see below PHYSICAL EXAMINATION: CONSTITUTIONAL: Resting in bed. EYES: PERRLA, EOM intact HENT, MOUTH: Normocephalic, atraumatic, moist mucous membranes NECK: SUPPLE, no JVD, no lymphadenopathy, no carotid bruit CV: Regular rate and rhythm, S1S2 normal, no murmurs/rubs/gallops RESPIRATORY: Clear to auscultation bilaterally, no rales/rhonchi/wheezes GI: BS positive in 4 quadrants, soft, nontender, nondistended, no rebound or guarding, no organomegaly : Deferred MUSCULOSKELETAL: Warm extremities, no mottling bilaterally. Area of amputation appears clean, nonsuppurative, no foul smell, healing scabbed area clean. C ontracted lower ext bilaterally. No cyanosis, clubbing, swelling, joint deformity, extremity edema INTEGUMENTARY: Intact, no rashes, no lesions, no erythema NEUROLOGIC: Cranial Nerves II-XII are intact, no focal deficits CURRENT MEDICATIONS: Please see below LABORATORY DATA: Please see below IMAGING: No new imaging. 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 PLAN: 1. Acute kidney injury likely 2/2 to poor PO intake 2/2 to dementia. Status: Acute Problem Text: Worsened Cr at 1.80, stopped ACEi. Restarted IVFs at 80 cc/hr, encouraging fluids Q2 hrs by nursing to see if this helps. F/u AM labs. 2. HTN (hypertension) Status: Chronic Problem Text: Manual blood pressure checks almost 30 mmHg lower than automatic cuff being used. BP better at 120-140 systolic. C/w fluids. Stopped ACEi due to worsening renal function-resume when normalizes. 3. Gangrene of toe of right foot Status: Acute Problem Text: CRP, ESR improved. Distal dried gangrene, with recent third metatarsal head excision and wound debridement, excisional type, including subc utaneous tissue, tendon and bone 07/10/19. 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 C/w current treatment until 08/20/19. Continue present care and wound care as per orders by podiatry. As per vascular surgery patient is not a surgical candidate. 4. BPH (benign prostatic hyperplasia) Status: Chronic Problem Text: Continue present medications 5. Dementia Status: Chronic Problem Text: Continue present medications 6. DVT px- Enoxaparin. DISPOSITION: C/w treatment above. Awaiting placement to SNF. Podiatry and ID following. VS, I&O, 24H, Fishbone Vital Signs/I&O Vital Signs Date Time Temp Pulse Resp B/P (MAP) Pulse Ox O2 Delivery O2 Flow Rate FiO2 07/25/19 14:00 98.3 64 18 132/75 (94) 93 Room Air I&O- Last 24 Hours up to 6 AM 07/25/19 05:59 Intake Total 2420 ml Output Total 100 ml Balance 2320 ml Laboratory Data 24H LABS Laboratory Tests 2 07/25/19 06:06: Nucleated Red Blood Cells % (auto) 0.0, Erythrocyte Sedimentation Rate 82H, Anion Gap 10, Glomerular Filtration Rate 38.5, Calcium Level 7.6L, Total Bilirubin 0.2, Aspartate Amino Transf (AST/SGOT) 13, Alanine Aminotransferase (ALT/SGPT) 11L, Alkaline Phosphatase 63, C-Reactive Protein, Quantitative 2.07H, Total Protein 6.1L, Albumin 1.7L, Albumin/Globulin Ratio 0.39L CBC/BMP Laboratory Tests 07/25/19 06:06 Current Medications Current Medications Medications (Trade) Dose Ordered Sig/Hubert Route PRN Reason Start Time Stop Time Status Last Admin Dose Admin Acetaminophen (Tylenol Tab) 650 mg Q4H PRN PO PAIN OR FEVER 02/12/19 02:30 07/23/19 21:08 Amlodipine Besylate (Norvasc) 2.5 mg BID PO 07/12/19 02:30 07/12/19 10:15 DC 07/12/19 08:17 Amlodipine Besylate (Norvasc) 5 mg BID PO 02/21/19 09:00 02/21/19 08:44 DC Amlodipine Besylate (Norvasc) 5 mg DAILY PO 05/10/19 09:00 05/10/19 09:32 DC Amlodipine Besylate (Norvasc) 5 mg QHS PO 04/20/19 21:00 04/29/19 14:56 DC 04/28/19 20:47 Amlodipine Besylate (Norvasc) 10 mg DAILY PO 05/03/19 09:00 05/09/19 09:24 DC 05/07/19 08:07 Amlodipine Besylate (Norvasc) 10 mg DAILY PO 02/12/19 09:00 02/13/19 09:42 DC 02/13/19 08:52 Amlodipine Besylate (Norvasc) 10 mg DAILY PO 02/13/19 09:00 02/13/19 09:45 DC Amlodipine Besylate (Norvasc) 10 mg DAILY PO 02/14/19 09:00 02/21/19 06:46 DC 02/19/19 08:33 Amlodipine Besylate (Norvasc) 10 mg QHS PO 02/21/19 21:00 04/20/19 15:21 DC 04/19/19 20:12 Amoxicillin/ Clavulanate Potassium (Augmentin) 500 mg BID PO 05/01/19 10:00 05/09/19 07:52 DC 05/08/19 19:47 Amoxicillin/ Clavulanate Potassium (Augmentin) 500 mg BID PO 03/07/19 21:00 03/12/19 10:33 DC 03/12/19 09:04 Amoxicillin/ Clavulanate Potassium (Augmentin) 875 mg BID PO 05/01/19 21:00 UNV Amoxicillin/ Clavulanate Potassium (Augmentin) 875 mg BID PO 02/15/19 09:00 02/22/19 08:59 DC 02/21/19 20:29 Ampicillin Sodium 2 gm/Dextrose 100 ml @ 200 mls/hr Q6H IV 07/20/19 17:00 07/25/19 12:18 Ampicillin Sodium/ Sulbactam Sodium 1.5 gm/Dextrose 50 ml @ 100 mls/hr Q6H IV 02/12/19 05:00 02/15/19 09:27 DC 02/15/19 05:19 Ampicillin Sodium/ Sulbactam Sodium 3 gm/Dextrose 100 ml @ 200 mls/hr Q12H IV 03/06/19 23:00 03/07/19 17:17 DC 03/07/19 11:39 Atenolol (Tenormin) 12.5 mg BID PO 02/13/19 09:00 02/15/19 14:32 DC 02/14/19 20:57 Azithromycin (Zithromax Tab) 500 mg DAILY PO 03/07/19 09:00 03/13/19 14:18 DC 03/13/19 10:03 Azithromycin 500 mg/IV Miscellaneous Supplies 1 each/ Dextrose 255 ml @ 255 mls/hr Q24H IV 03/06/19 00:00 03/07/19 17:17 DC 03/07/19 00:44 Bisacodyl (Dulcolax Suppository) 10 mg Q2DP PRN [place] CONSTIPATION 02/12/19 18:45 02/13/19 14:23 Cephalexin Monohydrate (Keflex) 500 mg BID PO 05/25/19 09:00 06/07/19 23:59 DC 06/07/19 21:47 Cephalexin Monohydrate (Keflex) 500 mg Q12H PO 06/29/19 09:00 07/08/19 08:59 DC 07/07/19 20:39 Cetirizine HCl (ZyrTEC) 10 mg DAILY PO 02/14/19 09:00 07/25/19 08:17 Cyanocobalamin (Vitamin B12) 500 mcg QHS PO 02/12/19 21:00 07/24/19 22:18 Dextrose/Lactated Ringer's 1,000 ml @ 40 mls/hr Q24H IV 02/12/19 02:30 02/12/19 17:11 DC 02/12/19 03:12 Divalproex Sodium (Depakote Er) 500 mg QHS PO 02/12/19 21:00 07/24/19 22:18 Docusate Sodium (Colace) 100 mg Q12HP PRN PO CONSTIPATION 05/03/19 11:45 07/19/19 20:51 Donepezil HCl (AriCEPT) 10 mg QHS PO 02/12/19 21:00 07/24/19 22:17 Enoxaparin Sodium (Lovenox) 30 mg DAILY SC 02/15/19 09:00 07/25/19 08:03 DC 07/24/19 08:46 Heparin Sodium (Porcine) (Heparin) 5,000 units Q8H SQ 07/25/19 14:00 07/25/19 14:13 Home Med (Med Rec Complete!) ASDIRECTED XX 02/12/19 04:00 02/12/19 04:05 DC Hydralazine HCl (Apresoline) 10 mg Q4H IV 02/12/19 14:00 02/13/19 07:26 DC 02/13/19 05:23 Hydralazine HCl (Apresoline) 20 mg Q6H PO 02/12/19 12:00 02/12/19 13:20 DC Hydralazine HCl (Apresoline) 25 mg QID PO 02/13/19 09:00 02/17/19 12:49 DC 02/17/19 11:08 Isosorbide Dinitrate (Isordil) 20 mg Q6H PO 02/13/19 18:00 02/17/19 12:49 DC 02/17/19 11:06 Labetalol HCl (Normodyne, Trandate) 2 mg Q6HP PRN IV BP > 160/100 02/12/19 03:45 02/12/19 12:21 DC Lactated Ringer's 1,000 ml @ 75 mls/hr [id number] IV 04/28/19 08:15 04/29/19 08:06 DC 04/28/19 20:48 Lactated Ringer's 1,000 ml @ 75 mls/hr [id number] IV 04/29/19 14:30 05/01/19 07:51 DC 04/30/19 19:00 Levofloxacin (Levaquin) 250 mg Q24H PO 05/30/19 22:00 06/12/19 23:59 DC 06/12/19 21:39 Levofloxacin (Levaquin) 750 mg Q48H PO 07/01/19 06:00 07/09/19 10:00 DC 07/09/19 10:07 Lisinopril (Prinivil) 5 mg DAILY PO 07/12/19 02:30 07/12/19 10:15 DC 07/12/19 02:57 Lisinopril (Prinivil) 5 mg QHS PO 07/15/19 21:00 07/25/19 08:03 DC 07/24/19 22:18 Lisinopril (Prinivil) 5 mg QHS PO 02/21/19 21:00 04/29/19 14:56 DC 04/28/19 20:46 Lisinopril (Prinivil) 10 mg DAILY PO 05/03/19 09:00 05/09/19 09:24 DC 05/07/19 08:07 Lisinopril (Prinivil) 10 mg QHS PO 05/09/19 21:00 07/09/19 09:01 DC 07/08/19 21:36 Lisinopril (Prinivil) 10 mg QHS PO 02/17/19 21:00 02/21/19 06:43 DC 02/20/19 20:31 Lisinopril (Prinivil) 10 mg QHS PO 02/21/19 21:00 02/21/19 08:44 DC Lisinopril (Prinivil) 20 mg QHS PO 02/21/19 21:00 02/21/19 06:46 DC Magnesium Hydroxide (Milk Of Magnesia) 30 ml DAILYPRN PRN PO CONSTIPATION 02/12/19 19:00 02/13/19 08:57 Metronidazole (Flagyl) 500 mg Q8H PO 05/01/19 14:00 05/03/19 10:32 DC 05/03/19 06:56 Miscellaneous (Unresolved Clarification Entry) SEE LABEL COMMENTS DAILY XX 04/15/19 09:00 Cancel Miscellaneous (Unresolved Clarification Entry) SEE LABEL COMMENTS DAILY XX 04/21/19 09:00 04/21/19 16:34 DC Miscellaneous (Unresolved Clarification Entry) SEE LABEL COMMENTS DAILY XX 05/17/19 09:00 05/17/19 11:43 DC Miscellaneous (Unresolved Clarification Entry) SEE LABEL COMMENTS DAILY XX 05/23/19 09:00 05/24/19 12:03 DC Miscellaneous (Unresolved Clarification Entry) SEE LABEL COMMENTS DAILY XX 05/05/19 09:00 05/05/19 11:26 DC Miscellaneous (Unresolved Clarification Entry) SEE LABEL COMMENTS DAILY XX 06/18/19 09:00 06/20/19 08:54 DC Miscellaneous (Unresolved Clarification Entry) SEE LABEL COMMENTS DAILY XX 06/25/19 09:00 06/25/19 11:30 DC Miscellaneous (Unresolved Clarification Entry) SEE LABEL COMMENTS DAILY XX 07/11/19 09:00 07/11/19 11:57 DC Miscellaneous (Unresolved Clarification Entry) SEE LABEL COMMENTS DAILY XX 02/21/19 09:00 02/22/19 06:40 DC Miscellaneous (Unresolved Clarification Entry) SEE LABEL COMMENTS DAILY XX 02/22/19 09:00 02/22/19 12:30 DC Miscellaneous (Unresolved Clarification Entry) SEE LABEL COMMENTS DAILY XX 02/26/19 09:00 02/26/19 12:38 DC Miscellaneous (Unresolved Clarification Entry) SEE LABEL COMMENTS DAILY XX 03/15/19 09:00 03/15/19 10:31 DC Miscellaneous (Unresolved Clarification Entry) SEE LABEL COMMENTS DAILY XX 03/25/19 09:00 03/25/19 12:55 DC Nitroglycerin (Nitrobid 2%) HOLD FOR SBP<140 1 INCH Q4H TOP 02/12/19 13:00 02/13/19 09:28 DC 02/13/19 08:53 Nystatin (Mycostatin Powder, Nystop) groin BID TOP 06/10/19 09:00 07/25/19 08:17 Piperacillin Sod/ Tazobactam Sod 2.25 gm/Dextrose 50 ml @ 100 mls/hr Q6H IV 07/09/19 14:00 07/12/19 08:42 DC 07/12/19 08:16 Piperacillin Sod/ Tazobactam Sod 3.375 gm/Dextrose 50 ml @ 50 mls/hr Q6H IV 04/29/19 15:00 05/01/19 07:51 DC 05/01/19 03:19 Piperacillin Sod/ Tazobactam Sod 3.375 gm/Dextrose 50 ml @ 50 mls/hr Q6H IV 07/09/19 14:00 07/09/19 13:52 DC Sodium Biphosphate/ Sodium Phosphate (Fleet Enema) 1 ea Q3DP PRN NV CONSTIPATION 02/12/19 19:00 Sodium Chloride 1,000 ml @ 60 mls/hr [id number] IV 07/25/19 08:15 07/25/19 08:17 Sodium Chloride 1,000 ml @ 80 mls/hr [id number] IV 07/09/19 09:00 07/11/19 14:05 DC 07/11/19 08:49 Sodium Chloride 1,000 ml @ 80 mls/hr [id number] IV 07/24/19 09:00 07/25/19 05:45 DC 07/24/19 22:17 Sodium Chloride (Coleman Nasal [place]) 2 spray Q2HP PRN NA NASAL DRYNESS 02/13/19 09:30 Sodium Chloride (Coleman Nasal [place]) 2 spray TID NA 02/13/19 09:00 03/18/19 09:01 DC 03/17/19 21:33 Tamsulosin HCl (Flomax) 0.4 mg QHS PO 02/12/19 21:00 07/24/19 22:18 Trazodone HCl (Desyrel) 25 mg QHSP PRN PO INSOMNIA 02/21/19 06:45 04/23/19 01:42 Vancomycin HCl 500 mg/Dextrose 110 ml @ 110 mls/hr Q24H IV 07/19/19 12:00 07/20/19 12:22 DC 07/19/19 12:13 Vancomycin HCl 500 mg/IV Miscellaneous Supplies 10 ml @ 10 mls/hr Q8H IV 07/12/19 08:45 07/12/19 09:07 DC Vancomycin HCl 750 mg/IV Miscellaneous Supplies 1 each/ Dextrose 275 ml @ 275 mls/hr Q12H IV 02/12/19 02:30 02/12/19 05:32 DC Vancomycin HCl 750 mg/IV Miscellaneous Supplies 1 each/ Dextrose 275 ml @ 275 mls/hr Q24H IV 04/29/19 16:00 04/30/19 12:06 DC 04/29/19 16:50 Vancomycin HCl 750 mg/IV Miscellaneous Supplies 1 each/ Dextrose 275 ml @ 275 mls/hr Q24H IV 07/16/19 10:00 07/19/19 09:32 DC 07/18/19 09:57 Vancomycin HCl 750 mg/IV Miscellaneous Supplies 1 each/ Dextrose 275 ml @ 275 mls/hr Q36H IV 07/20/19 19:00 07/20/19 14:57 DC Vancomycin HCl 1000 mg/IV Miscellaneous Supplies 1 each/ Dextrose 270 ml @ 270 mls/hr Q18H IV 02/12/19 06:00 02/15/19 06:02 DC 02/14/19 11:20 Vancomycin HCl 1000 mg/IV Miscellaneous Supplies 1 each/ Dextrose 270 ml @ 270 mls/hr Q24H IV 07/13/19 07:00 07/16/19 06:45 DC 07/15/19 07:06 Vancomycin HCl 1000 mg/IV Miscellaneous Supplies 1 each/ Dextrose 270 ml @ 270 mls/hr Q24H IV 02/15/19 12:00 02/15/19 09:27 DC Vitamin D (Vitamin D) 1,000 units QPM PO 02/12/19 21:00 07/24/19 22:18 Allergies Coded Allergies: No Known Allergies (Unverified , 12/09/18) Radha Delgado MD Jul 25, 2019 15:55
[2019-07-25] MEDS ORDERED: guaiFENesin SYRUP 200 MG/10 ML UDC PO PRN (17:45)
[2019-07-25] MEDS ORDERED: FUROSEMIDE 40MG/4ML VIAL (J1940) IV ONE (19:00)
[2019-07-25] MEDS ORDERED: guaiFENesin ER 600 MG TAB PO SCH (21:00)
[2019-07-25] MEDS: DIVALPROEX 250MG *ER* TAB PO SCH (21:16)
[2019-07-25] MEDS: DONEPEZIL 5 MG TAB PO SCH (21:16)
[2019-07-25] MEDS: CYANOCOBALAMIN 500 MCG TAB PO SCH (21:17)
[2019-07-25] MEDS: VITAMIN D 1,000 INTERNATIONAL UNITS TABLET PO SCH (21:17)
[2019-07-25] MEDS: TAMSULOSIN 0.4 MG CAP PO SCH (21:17)
[2019-07-26 02:00] VITALS: BP 158/64
[2019-07-26] MEDS: AMPICILLIN SOD 2 GM in D5W MINI-BAG PLUS 100 ML IV SCH ×4 (04:48→23:00)
[2019-07-26] MEDS: HEPARIN SOD (PORCINE) 5000UNITS/ML VIAL (J1644 PER 1000UNITS) SQ SCH ×3 (05:39→21:21)
[2019-07-26 05:51] LABS: HEMATOCRIT 28.2 % (42.0-52.0); HEMOGLOBIN 9.3 g/dl (13.5-17.5); MEAN CORPUSCULAR HEMOGLOBIN 31.4 pg (27.0-33.0); MEAN CORPUSCULAR VOLUME 95.3 fl (80.0-96.0); PLATELET COUNT, AUTOMATED 279 10^3/uL (150-450); RED BLOOD COUNT 2.96 10^6/uL (4.30-6.10); WHITE BLOOD COUNT 8.5 10^3/uL (4.0-10.0)
[2019-07-26 06:00] VITALS: BP 158/64
[2019-07-26 07:13] LABS: CALCIUM LEVEL 7.5 MG/DL (8.8-10.2); CREATININE FOR GFR 1.7 MG/DL (0.70-1.30); GLOMERULAR FILTRATION RATE 41.1 (>35); POTASSIUM SERUM 3.8 MEQ/L (3.5-5.1)
[2019-07-26] MEDS: NYSTATIN 100,000 UNITS/GM TOPICAL PWD 15 GM TOP SCH ×2 (09:36→21:21)
[2019-07-26] MEDS: FUROSEMIDE 40MG/4ML VIAL (J1940) IV SCH (09:36)
[2019-07-26] MEDS: CETIRIZINE (ZyrTEC) 10 MG TAB PO SCH (09:37)
[2019-07-26 10:00] VITALS: BP 155/65
--- NOTE | 2019-07-26 10:24 | REP ---
CHEST, SINGLE VIEW: Single view of the chest is performed and compared to prior study of 04/29/2019. There are chronic fibrotic changes bilaterally, especially in the lung bases. There does appear to be a superimposed infiltrate in the left lung base. Heart is not enlarged. There is calcification of the thoracic aorta. Mediastinal silhouette is unchanged. There is curvature of the spine toward the right. IMPRESSION: Left basilar infiltrate superimposed on chronic fibrosis. Electronically Signed by Jameson Duarte MD 07/26/2019 11:56 A
[2019-07-26 14:00] VITALS: BP 115/59
--- NOTE | 2019-07-26 16:10 | IPN ---
DATE: 07/26/2019 The patient is seen and examined. Vitals are reviewed. He has remained afebrile. Labs are reviewed. White blood cell count is 8.5. His erythrocyte sedimentation rate (ESR) is 82. LOWER EXTREMITY EXAMINATION: Wound without any surrounding erythema and the wound margin seem reasonably well perfused excluding the gangrenous portion proximal to the amputation site. There is no purulence or necrotic tissue in the wound. ASSESSMENT: 83-year-old male with peripheral vascular disease status post bone resections. PLAN: Continue current dressing changes, antibiotics as recommended by infectious disease.
[2019-07-26] MEDS ORDERED: LevoFLOXacin 750 MG TABLET PO SCH (18:00)
[2019-07-26] MEDS ORDERED: VANCOMYCIN HCL 1,000 MG, VIAL MATE ADAPTER 1 EACH in D5W 250 ML IV ONE (19:00)
--- NOTE | 2019-07-26 19:16 | IPNPDOC ---
Date Seen The patient was seen on 07/26/19. Progress Note SUBJECTIVE: Suspecting fluid overload, possible cardiorenal syndrome. Stopped IVFs, started lasix. LLL pneumonia, started levofloxacin and one time dose vancomycin. F/u MRSA. Awake with no complaints. Denies SOB, chest pain. OBJECTIVE: VS: Please see below PHYSICAL EXAMINATION: CONSTITUTIONAL: Resting in bed. EYES: PERRLA, EOM intact HENT, MOUTH: Normocephalic, atraumatic, moist mucous membranes NECK: SUPPLE, no JVD, no lymphadenopathy, no carotid bruit CV: Regular rate and rhythm, S1S2 normal, no murmurs/rubs/gallops RESPIRATORY: crackles in LLL, no rales/rhonchi/wheezes GI: BS positive in 4 quadrants, soft, nontender, nondistended, no rebound or guarding, no organomegaly : Deferred MUSCULOSKELETAL: Warm extremities, no mottling bilaterally. Area of amputation appears clean, nonsuppurative, no foul smell, healing scabbed area clean. Contracted lower ext bilaterally. No cyanosis, clubbing, swelling, joint deformity, extremity edema INTEGUMENTARY: Intact, no rashes, no lesions, no erythema NEUROLOGIC: Cranial Nerves II-XII are intact, no focal deficits CURRENT MEDICATIONS: Please see below LABORATORY DATA: Please see below IMAGING: CXR: LLL pneumonia ASSESSMENT: 83 y/o M admitted under inpatient status for treatment of gangrene of right 4th, 5th toe s/p amputation, acute kidney injury, chronic dementia awaiting placement. PLAN: 1. Acute kidney injury likely cardiorenal syndrome. Status: Acute Problem Text: Started IV lasix daily, can increase to BID if tolerates daily dose. Stopped ACEi. F/u AM labs. 2. HCAP Status: Acute Problem Text: WBC wnl, afebrile. MRSA screen ordered, previously neg. One time dose of vancomycin, started on levofloxacin Q48 hrs. Acapella. Sputum cx ordered. 3. Gangrene of toe of right foot Status: Acute Problem Text: CRP, ESR improved. Distal dried gangrene, with recent third metatarsal head excision and wound debridement, excisional type, including subcutaneous tissue, tendon and bone 07/10/19. 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 C/w current treatment until 08/20/19. Continue present care and wound care as per orders by podiatry. As per vascular surgery patient is not a surgical candidate 4. HTN (hypertension) Status: Chronic Problem Text: Stopped ACEi, on lasix. Monitor closely. 5. BPH (benign prostatic hyperplasia) Status: Chronic Problem Text: Continue present medications 6. Dementia Status: Chronic Problem Text: Continue present medications 7. DVT px- Enoxaparin. DISPOSITION: C/w treatment above. Awaiting placement to SNF. Podiatry and ID following. VS, I&O, 24H, Fishbone Vital Signs/I&O Vital Signs Date Time Temp Pulse Resp B/P (MAP) Pulse Ox O2 Delivery O2 Flow Rate FiO2 07/26/19 14:00 97.6 75 16 115/59 (77) 98 Room Air I&O- Last 24 Hours up to 6 AM 07/26/19 06:00 Intake Total 1550 ml Output Total 50 ml Balance 1500 ml Laboratory Data 24H LABS Laboratory Tests 2 07/26/19 05:35: Nucleated Red Blood Cells % (auto) 0.0, Anion Gap 7L, Glomerular Filtration Rate 41.1, Calcium Level 7.5L, [id number]-Type Natriuretic Peptide 3981H CBC/BMP Laboratory Tests 07/26/19 05:35 Current Medications Current Medications Medications (Trade) Dose Ordered Sig/Hubert Route PRN Reason Start Time Stop Time Status Last Admin Dose Admin Acetaminophen (Tylenol Tab) 650 mg Q4H PRN PO PAIN OR FEVER 02/12/19 02:30 07/23/19 21:08 Amlodipine Besylate (Norvasc) 2.5 mg BID PO 07/12/19 02:30 07/12/19 10:15 DC 07/12/19 08:17 Amlodipine Besylate (Norvasc) 5 mg BID PO 02/21/19 09:00 02/21/19 08:44 DC Amlodipine Besylate (Norvasc) 5 mg DAILY PO 05/10/19 09:00 05/10/19 09:32 DC Amlodipine Besylate (Norvasc) 5 mg QHS PO 04/20/19 21:00 04/29/19 14:56 DC 04/28/19 20:47 Amlodipine Besylate (Norvasc) 10 mg DAILY PO 05/03/19 09:00 05/09/19 09:24 DC 05/07/19 08:07 Amlodipine Besylate (Norvasc) 10 mg DAILY PO 02/12/19 09:00 02/13/19 09:42 DC 02/13/19 08:52 Amlodipine Besylate (Norvasc) 10 mg DAILY PO 02/13/19 09:00 02/13/19 09:45 DC Amlodipine Besylate (Norvasc) 10 mg DAILY PO 02/14/19 09:00 02/21/19 06:46 DC 02/19/19 08:33 Amlodipine Besylate (Norvasc) 10 mg QHS PO 02/21/19 21:00 04/20/19 15:21 DC 04/19/19 20:12 Amoxicillin/ Clavulanate Potassium (Augmentin) 500 mg BID PO 05/01/19 10:00 05/09/19 07:52 DC 05/08/19 19:47 Amoxicillin/ Clavulanate Potassium (Augmentin) 500 mg BID PO 03/07/19 21:00 03/12/19 10:33 DC 03/12/19 09:04 Amoxicillin/ Clavulanate Potassium (Augmentin) 875 mg BID PO 05/01/19 21:00 UNV Amoxicillin/ Clavulanate Potassium (Augmentin) 875 mg BID PO 02/15/19 09:00 02/22/19 08:59 DC 02/21/19 20:29 Ampicillin Sodium 2 gm/Dextrose 100 ml @ 200 mls/hr Q6H IV 07/20/19 17:00 07/26/19 18:01 Ampicillin Sodium/ Sulbactam Sodium 1.5 gm/Dextrose 50 ml @ 100 mls/hr Q6H IV 02/12/19 05:00 02/15/19 09:27 DC 02/15/19 05:19 Ampicillin Sodium/ Sulbactam Sodium 3 gm/Dextrose 100 ml @ 200 mls/hr Q12H IV 03/06/19 23:00 03/07/19 17:17 DC 03/07/19 11:39 Atenolol (Tenormin) 12.5 mg BID PO 02/13/19 09:00 02/15/19 14:32 DC 02/14/19 20:57 Azithromycin (Zithromax Tab) 500 mg DAILY PO 03/07/19 09:00 03/13/19 14:18 DC 03/13/19 10:03 Azithromycin 500 mg/IV Miscellaneous Supplies 1 each/ Dextrose 255 ml @ 255 mls/hr Q24H IV 03/06/19 00:00 03/07/19 17:17 DC 03/07/19 00:44 Bisacodyl (Dulcolax Suppository) 10 mg Q2DP PRN [place] CONSTIPATION 02/12/19 18:45 02/13/19 14:23 Cephalexin Monohydrate (Keflex) 500 mg BID PO 05/25/19 09:00 06/07/19 23:59 DC 06/07/19 21:47 Cephalexin Monohydrate (Keflex) 500 mg Q12H PO 06/29/19 09:00 07/08/19 08:59 DC 07/07/19 20:39 Cetirizine HCl (ZyrTEC) 10 mg DAILY PO 02/14/19 09:00 07/26/19 09:37 Cyanocobalamin (Vitamin B12) 500 mcg QHS PO 02/12/19 21:00 07/25/19 21:17 Dextrose/Lactated Ringer's 1,000 ml @ 40 mls/hr Q24H IV 02/12/19 02:30 02/12/19 17:11 DC 02/12/19 03:12 Divalproex Sodium (Depakote Er) 500 mg QHS PO 02/12/19 21:00 07/25/19 21:16 Docusate Sodium (Colace) 100 mg Q12HP PRN PO CONSTIPATION 05/03/19 11:45 07/19/19 20:51 Donepezil HCl (AriCEPT) 10 mg QHS PO 02/12/19 21:00 07/25/19 21:16 Enoxaparin Sodium (Lovenox) 30 mg DAILY SC 02/15/19 09:00 07/25/19 08:03 DC 07/24/19 08:46 Furosemide (LASIX injection) 40 mg DAILY IV 07/26/19 09:00 07/26/19 09:36 Guaifenesin (Mucinex Tab Er) 600 mg BID PO 07/25/19 21:00 07/25/19 17:37 DC Guaifenesin (Robitussin) 10 ml Q4HP PRN PO COUGH 07/25/19 17:45 07/25/19 18:41 Heparin Sodium (Porcine) (Heparin) 5,000 units Q8H SQ 07/25/19 14:00 07/26/19 05:39 Home Med (Med Rec Complete!) ASDIRECTED XX 02/12/19 04:00 02/12/19 04:05 DC Hydralazine HCl (Apresoline) 10 mg Q4H IV 02/12/19 14:00 02/13/19 07:26 DC 02/13/19 05:23 Hydralazine HCl (Apresoline) 20 mg Q6H PO 02/12/19 12:00 02/12/19 13:20 DC Hydralazine HCl (Apresoline) 25 mg QID PO 02/13/19 09:00 02/17/19 12:49 DC 02/17/19 11:08 Isosorbide Dinitrate (Isordil) 20 mg Q6H PO 02/13/19 18:00 02/17/19 12:49 DC 02/17/19 11:06 Labetalol HCl (Normodyne, Trandate) 2 mg Q6HP PRN IV BP > 160/100 02/12/19 03:45 02/12/19 12:21 DC Lactated Ringer's 1,000 ml @ 75 mls/hr [id number] IV 04/28/19 08:15 04/29/19 08:06 DC 04/28/19 20:48 Lactated Ringer's 1,000 ml @ 75 mls/hr [id number] IV 04/29/19 14:30 05/01/19 07:51 DC 04/30/19 19:00 Levofloxacin (Levaquin) 250 mg Q24H PO 05/30/19 22:00 06/12/19 23:59 DC 06/12/19 21:39 Levofloxacin (Levaquin) 750 mg Q48H PO 07/01/19 06:00 07/09/19 10:00 DC 07/09/19 10:07 Lisinopril (Prinivil) 5 mg DAILY PO 07/12/19 02:30 07/12/19 10:15 DC 07/12/19 02:57 Lisinopril (Prinivil) 5 mg QHS PO 07/15/19 21:00 07/25/19 08:03 DC 07/24/19 22:18 Lisinopril (Prinivil) 5 mg QHS PO 02/21/19 21:00 04/29/19 14:56 DC 04/28/19 20:46 Lisinopril (Prinivil) 10 mg DAILY PO 05/03/19 09:00 05/09/19 09:24 DC 05/07/19 08:07 Lisinopril (Prinivil) 10 mg QHS PO 05/09/19 21:00 07/09/19 09:01 DC 07/08/19 21:36 Lisinopril (Prinivil) 10 mg QHS PO 02/17/19 21:00 02/21/19 06:43 DC 02/20/19 20:31 Lisinopril (Prinivil) 10 mg QHS PO 02/21/19 21:00 02/21/19 08:44 DC Lisinopril (Prinivil) 20 mg QHS PO 02/21/19 21:00 02/21/19 06:46 DC Magnesium Hydroxide (Milk Of Magnesia) 30 ml DAILYPRN PRN PO CONSTIPATION 02/12/19 19:00 02/13/19 08:57 Metronidazole (Flagyl) 500 mg Q8H PO 05/01/19 14:00 05/03/19 10:32 DC 05/03/19 06:56 Miscellaneous (Unresolved Clarification Entry) SEE LABEL COMMENTS DAILY XX 04/15/19 09:00 Cancel Miscellaneous (Unresolved Clarification Entry) SEE LABEL COMMENTS DAILY XX 04/21/19 09:00 04/21/19 16:34 DC Miscellaneous (Unresolved Clarification Entry) SEE LABEL COMMENTS DAILY XX 05/17/19 09:00 05/17/19 11:43 DC Miscellaneous (Unresolved Clarification Entry) SEE LABEL COMMENTS DAILY XX 05/23/19 09:00 05/24/19 12:03 DC Miscellaneous (Unresolved Clarification Entry) SEE LABEL COMMENTS DAILY XX 05/05/19 09:00 05/05/19 11:26 DC Miscellaneous (Unresolved Clarification Entry) SEE LABEL COMMENTS DAILY XX 06/18/19 09:00 06/20/19 08:54 DC Miscellaneous (Unresolved Clarification Entry) SEE LABEL COMMENTS DAILY XX 06/25/19 09:00 06/25/19 11:30 DC Miscellaneous (Unresolved Clarification Entry) SEE LABEL COMMENTS DAILY XX 07/11/19 09:00 07/11/19 11:57 DC Miscellaneous (Unresolved Clarification Entry) SEE LABEL COMMENTS DAILY XX 02/21/19 09:00 02/22/19 06:40 DC Miscellaneous (Unresolved Clarification Entry) SEE LABEL COMMENTS DAILY XX 02/22/19 09:00 02/22/19 12:30 DC Miscellaneous (Unresolved Clarification Entry) SEE LABEL COMMENTS DAILY XX 02/26/19 09:00 02/26/19 12:38 DC Miscellaneous (Unresolved Clarification Entry) SEE LABEL COMMENTS DAILY XX 03/15/19 09:00 03/15/19 10:31 DC Miscellaneous (Unresolved Clarification Entry) SEE LABEL COMMENTS DAILY XX 03/25/19 09:00 03/25/19 12:55 DC Nitroglycerin (Nitrobid 2%) HOLD FOR SBP<140 1 INCH Q4H TOP 02/12/19 13:00 02/13/19 09:28 DC 02/13/19 08:53 Nystatin (Mycostatin Powder, Nystop) groin BID TOP 06/10/19 09:00 07/26/19 09:36 Piperacillin Sod/ Tazobactam Sod 2.25 gm/Dextrose 50 ml @ 100 mls/hr Q6H IV 07/09/19 14:00 07/12/19 08:42 DC 07/12/19 08:16 Piperacillin Sod/ Tazobactam Sod 3.375 gm/Dextrose 50 ml @ 50 mls/hr Q6H IV 04/29/19 15:00 05/01/19 07:51 DC 05/01/19 03:19 Piperacillin Sod/ Tazobactam Sod 3.375 gm/Dextrose 50 ml @ 50 mls/hr Q6H IV 07/09/19 14:00 07/09/19 13:52 DC Sodium Biphosphate/ Sodium Phosphate (Fleet Enema) 1 ea Q3DP PRN [place] CONSTIPATION 02/12/19 19:00 Sodium Chloride 1,000 ml @ 60 mls/hr [id number] IV 07/25/19 08:15 07/26/19 08:40 DC 07/25/19 16:28 Sodium Chloride 1,000 ml @ 80 mls/hr [id number] IV 07/09/19 09:00 07/11/19 14:05 DC 07/11/19 08:49 Sodium Chloride 1,000 ml @ 80 mls/hr [id number] IV 07/24/19 09:00 07/25/19 05:45 DC 07/24/19 22:17 Sodium Chloride ([place] Nasal [place]) 2 spray Q2HP PRN NA NASAL DRYNESS 02/13/19 09:30 Sodium Chloride ([place] Nasal [place]) 2 spray TID NA 02/13/19 09:00 03/18/19 09:01 DC 03/17/19 21:33 Tamsulosin HCl (Flomax) 0.4 mg QHS PO 02/12/19 21:00 07/25/19 21:17 Trazodone HCl (Desyrel) 25 mg QHSP PRN PO INSOMNIA 02/21/19 06:45 04/23/19 01:42 Vancomycin HCl 500 mg/Dextrose 110 ml @ 110 mls/hr Q24H IV 07/19/19 12:00 07/20/19 12:22 DC 07/19/19 12:13 Vancomycin HCl 500 mg/IV Miscellaneous Supplies 10 ml @ 10 mls/hr Q8H IV 07/12/19 08:45 07/12/19 09:07 DC Vancomycin HCl 750 mg/IV Miscellaneous Supplies 1 each/ Dextrose 275 ml @ 275 mls/hr Q12H IV 02/12/19 02:30 02/12/19 05:32 DC Vancomycin HCl 750 mg/IV Miscellaneous Supplies 1 each/ Dextrose 275 ml @ 275 mls/hr Q24H IV 04/29/19 16:00 04/30/19 12:06 DC 04/29/19 16:50 Vancomycin HCl 750 mg/IV Miscellaneous Supplies 1 each/ Dextrose 275 ml @ 275 mls/hr Q24H IV 07/16/19 10:00 07/19/19 09:32 DC 07/18/19 09:57 Vancomycin HCl 750 mg/IV Miscellaneous Supplies 1 each/ Dextrose 275 ml @ 275 mls/hr Q36H IV 07/20/19 19:00 07/20/19 14:57 DC Vancomycin HCl 1000 mg/IV Miscellaneous Supplies 1 each/ Dextrose 270 ml @ 270 mls/hr Q18H IV 02/12/19 06:00 02/15/19 06:02 DC 02/14/19 11:20 Vancomycin HCl 1000 mg/IV Miscellaneous Supplies 1 each/ Dextrose 270 ml @ 270 mls/hr Q24H IV 07/13/19 07:00 07/16/19 06:45 DC 07/15/19 07:06 Vancomycin HCl 1000 mg/IV Miscellaneous Supplies 1 each/ Dextrose 270 ml @ 270 mls/hr Q24H IV 02/15/19 12:00 02/15/19 09:27 DC Vitamin D (Vitamin D) 1,000 units QPM PO 02/12/19 21:00 07/25/19 21:17 Allergies Coded Allergies: No Known Allergies (Unverified , 12/09/18) Radha Delgado MD Jul 26, 2019 19:16
[2019-07-26] MEDS: VITAMIN D 1,000 INTERNATIONAL UNITS TABLET PO SCH (21:21)
[2019-07-26] MEDS: DIVALPROEX 250MG *ER* TAB PO SCH (21:21)
[2019-07-26] MEDS: TAMSULOSIN 0.4 MG CAP PO SCH (21:22)
[2019-07-26] MEDS: DONEPEZIL 5 MG TAB PO SCH (21:22)
[2019-07-26] MEDS: CYANOCOBALAMIN 500 MCG TAB PO SCH (21:22)
[2019-07-26 22:00] VITALS: BP 136/60
--- NOTE | 2019-07-26 23:05 | ECHO ---
DATE OF PROCEDURE: 07/26/2019 REFERRING PHYSICIAN: Dr. Radha Delgado INDICATION: Heart failure, unspecified. HEIGHT: 165 cm WEIGHT: 50 kg 2D MEASUREMENTS: Aortic root: 3.8 cm Ventricular septum: 1.15 cm Posterior wall: 1.14 cm Left ventricle diastole: 4.1 cm Left atrium: 2.8 cm Inferior vena cava: 1.4 cm DOPPLER MEASUREMENTS: No aortic stenosis. No aortic regurgitation. Aortic valve velocity: 102 cm/s LVOT velocity: 69.8 cm/s No mitral regurgitation. No mitral stenosis. Mitral E velocity: 42.0 cm/s Mitral A velocity: 65.1 cm/s Mitral deceleration time: 158 ms No tricuspid regurgitation. No pulmonic regurgitation. MITRAL ANNULAR TISSUE DOPPLER: Technically difficult. DESCRIPTION: Rhythm was sinus. This was a technically difficult echocardiogram. No pericardial effusion. CONCLUSIONS: 1. Normal left ventricular (LV) size and systolic function. Normal LV wall thickness. No apparent regional wall motion abnormalities of the left ventricle. Left ventricular ejection fraction (LVEF) 60% by visual estimate. Grade 1 LV diastolic dysfunction (impaired relaxation filling pattern). 2. Moderate aortic valve sclerosis of a 3-cusp aortic valve. No aortic stenosis or regurgitation. 3. Very mild dilatation of the aortic root at the level of the sinus of Valsalva (3.8 cm). 4. Mild mitral annular calcification. No mitral regurgitation. 5. Technically difficult echocardiogram.
[2019-07-27 02:00] VITALS: BP 146/61
[2019-07-27] MEDS: AMPICILLIN SOD 2 GM in D5W MINI-BAG PLUS 100 ML IV SCH ×4 (04:31→20:49)
[2019-07-27] MEDS: HEPARIN SOD (PORCINE) 5000UNITS/ML VIAL (J1644 PER 1000UNITS) SQ SCH ×3 (05:11→21:18)
[2019-07-27 06:00] VITALS: BP 159/58
[2019-07-27 07:10] LABS: HEMATOCRIT 30.3 % (42.0-52.0); HEMOGLOBIN 9.8 g/dl (13.5-17.5); MEAN CORPUSCULAR HGB CONC 32.3 g/dl (32.0-36.5); MEAN CORPUSCULAR VOLUME 95.9 fl (80.0-96.0); PLATELET COUNT, AUTOMATED 257 10^3/uL (150-450); RED BLOOD COUNT 3.16 10^6/uL (4.30-6.10); WHITE BLOOD COUNT 8.2 10^3/uL (4.0-10.0)
[2019-07-27 07:13] LABS: C REACTIVE PROTEIN QUANTITATIV 3.84 MG/DL (0.00-0.30); CALCIUM LEVEL 7.9 MG/DL (8.8-10.2); CREATININE FOR GFR 1.74 MG/DL (0.70-1.30); GLOMERULAR FILTRATION RATE 39.9 (>35); POTASSIUM SERUM 4.2 MEQ/L (3.5-5.1)
[2019-07-27 07:42] LABS: ERYTHROCYTE SEDIMENTATION RATE 73 mm/hr (0-20)
[2019-07-27] MEDS ORDERED: VANCOMYCIN HCL 750 MG, VIAL MATE ADAPTER 1 EACH in D5W 250 ML IV SCH (09:00)
[2019-07-27 10:00] VITALS: BP 175/63
[2019-07-27] MEDS: CETIRIZINE (ZyrTEC) 10 MG TAB PO SCH (10:20)
[2019-07-27] MEDS: NYSTATIN 100,000 UNITS/GM TOPICAL PWD 15 GM TOP SCH ×2 (10:21→21:18)
[2019-07-27] MEDS: FUROSEMIDE 40MG/4ML VIAL (J1940) IV SCH (10:21)
--- NOTE | 2019-07-27 13:10 | IPNPDOC ---
Subjective Date Seen The patient was seen on 07/27/19. Subjective Chief Complaint/HPI Patient is comfortable in no distress. Offers no complaints. Afebrile General: Denies: ROS Unobtainable, Chills, Night Sweats, Fatigue, Malaise, Normal Appetite, Other Symptoms Pulmonary: Denies: Dyspnea, Cough, Pleuritic Chest Pain, Other Symptoms Cardiovascular: Denies: Chest Pain, Palpitations, Orthopnea, Paroxysmal Noc. Dyspnea, Edema, Lt Headedness, Other Symptoms Gastrointestinal: Denies: Nausea, Vomiting, Abdominal Pain, Diarrhea, Constipation, Melena, Hematochezia, Other Symptoms Musculoskeletal: Denies: Neck Pain, Back Pain, Shoulder Pain, Arm Pain, Hand Pain, Leg Pain, Foot Pain, Joint Pain, Muscle Pain, Spasms, Other Symptoms Neurological: Denies: Weakness, Numbness, Incoordination, Change in speech, Confusion, Seizures, Other Symptoms Objective Physical Examination ENT Exam: Positive: Atraumatic, Mucous membr. moist/pink Neck Exam: Positive: Supple Chest Exam: Positive: Clear to auscultation, Normal air movement Heart Exam: Positive: Rate Normal, Normal S1, Normal S2 Telemetry: Positive: No significant arrhythmia Abdomen Exam: Positive: Normal bowel sounds, Soft Male Exam: Positive: Normal Genital Exam Extremity Exam: Positive: Normal pulses, Other (. Dressing at the right foot n oted) Skin Exam: Positive: Nl turgor and temperature Assessment /Plan Problems (1) Gangrene of toe of right foot Status: Acute Problem Text: Distal dried gangrene, with recent third metatarsal head excision and wound debridement, excisional type, including subcutaneous tissue, tendon a nd bone 07/10/19. 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 Positive enterococcus and wound cultures on ampicillin as per sensitivities for chronic osteomyelitis Pressure ulcers in bilateral heels. Boots are in place. The patient is Pravin lift and turn every hour. Wound care. Patient will eventually need below-knee amputation at some point Podiatry follow-up appreciated Awaiting fpc placement (2) HTN (hypertension) Status: Chronic Problem Text: Continue present medications (3) BPH (benign prostatic hyperplasia) Status: Chronic Problem Text: Continue present medications (4) Dementia Status: Chronic Problem Text: Continue present medications (5) HCAP (healthcare-associated pneumonia) Status: Acute Problem Text: Doubt diagnosis Hcap, As patient is clinically stable, afebrile and her lungs are clear on auscultation Will order CT chest without contrast to confirm the presence of infiltrate. Also, will ordered pro-calcitonin as well DC Vanco as patient's MRSA PCR is negative Also DC by mouth Levaquin to the diagnosis of Hcap IS CONFIRMED CBC, CMP and pro calcitonin in a.m. Plan/VTE VTE Prophylaxis Ordered?: Yes (lovenox 30 mg daily) VTE Exclusion Mechanical Proph: N/A:VTE Prophy Ordered VTE Exclusion Pharmacological: N/A:VTE Prophy Ordered VS, I&O, 24H, Fishbone Vital Signs/I&O Vital Signs Date Time Temp Pulse Resp B/P (MAP) Pulse Ox O2 Delivery O2 Flow Rate FiO2 07/27/19 10:00 97.5 60 18 175/63 (100) 93 Room Air I&O- Last 24 Hours up to 6 AM 07/27/19 06:00 Intake Total 1750 ml Output Total 2900 ml Balance -1150 ml Laboratory Data 24H LABS Laboratory Tests 2 07/26/19 19:53: Methicillin-Resist S.aureus DNA PCR NOT DETECTED 07/27/19 06:31: Nucleated Red Blood Cells % (auto) 0.0, Erythrocyte Sedimentation Rate 73H, Anion Gap 9, Glomerular Filtration Rate 39.9, Calcium Level 7.9L, C-Reactive Protein, Quantitative 3.84H CBC/BMP Laboratory Tests 07/27/19 06:31 ALVERTO EDDY MD Jul 27, 2019 13:09
[2019-07-27 14:00] VITALS: BP 127/60
--- NOTE | 2019-07-27 15:52 | REP ---
CT CHEST WITHOUT CONTRAST: CT chest performed without IV contrast. Sagittal and coronal reconstruction images are performed. Moderate left pleural effusion is present. There consolidative infiltrate in the left lower lobe. No significant pleural effusion is seen on the right. There is patchy atelectasis or infiltrate inferiorly in the right lower lobe. There are underlying chronic fibrotic changes bilaterally worse in the lung bases. Emphysematous changes are noted bilaterally. Extensive bullous changes seen inferiorly in the posterior right lower lobe and to a lesser extent in the left lower lobe. No axillary or gross mediastinal adenopathy is seen. The heart is slightly enlarged. There is no pericardial effusion. There is atherosclerotic calcification of the thoracic aorta without aneurysm. There are degenerative changes of the spine. There is an old severe compression deformity of a mid thoracic vertebral body, which is seen on prior chest radiograph 03/05/2019. There appears to be a small cyst at the left dome of the liver. IMPRESSION: Moderate left pleural effusion. Consolidative infiltrate in the left lower lobe. There is patchy infiltrate or atelectasis in the right lower lobe. All of this is superimposed on chronic fibrotic, emphysematous and bullous change. Electronically Signed by Jameson Duarte MD 07/27/2019 03:58 P
[2019-07-27 18:00] VITALS: BP 101/52
[2019-07-27] MEDS: DIVALPROEX 250MG *ER* TAB PO SCH (21:18)
[2019-07-27] MEDS: CYANOCOBALAMIN 500 MCG TAB PO SCH (21:18)
[2019-07-27] MEDS: VITAMIN D 1,000 INTERNATIONAL UNITS TABLET PO SCH (21:18)
[2019-07-27] MEDS: TAMSULOSIN 0.4 MG CAP PO SCH (21:18)
[2019-07-27] MEDS: DONEPEZIL 5 MG TAB PO SCH (21:18)
[2019-07-27 22:00] VITALS: BP 131/76
[2019-07-28] MEDS: AMPICILLIN SOD 2 GM in D5W MINI-BAG PLUS 100 ML IV SCH ×2 (01:49→09:24)
[2019-07-28 02:00] VITALS: BP 133/65
[2019-07-28] MEDS: HEPARIN SOD (PORCINE) 5000UNITS/ML VIAL (J1644 PER 1000UNITS) SQ SCH ×3 (05:59→21:03)
[2019-07-28 06:00] VITALS: BP 133/71
[2019-07-28 06:12] LABS: HEMATOCRIT 29.4 % (42.0-52.0); HEMOGLOBIN 9.8 g/dl (13.5-17.5); MEAN CORPUSCULAR HEMOGLOBIN 31.6 pg (27.0-33.0); MEAN CORPUSCULAR HGB CONC 33.3 g/dl (32.0-36.5); MEAN CORPUSCULAR VOLUME 94.8 fl (80.0-96.0); PLATELET COUNT, AUTOMATED 260 10^3/uL (150-450); WHITE BLOOD COUNT 8.9 10^3/uL (4.0-10.0)
[2019-07-28 06:45] LABS: CALCIUM LEVEL 8.4 MG/DL (8.8-10.2); CREATININE FOR GFR 1.92 MG/DL (0.70-1.30); GLOMERULAR FILTRATION RATE 35.6 (>35); POTASSIUM SERUM 3.6 MEQ/L (3.5-5.1)
[2019-07-28] MEDS: CETIRIZINE (ZyrTEC) 10 MG TAB PO SCH (09:24)
[2019-07-28] MEDS: NYSTATIN 100,000 UNITS/GM TOPICAL PWD 15 GM TOP SCH ×2 (09:24→21:02)
[2019-07-28 10:00] VITALS: BP 113/49
[2019-07-28] MEDS ORDERED: PIPERACILLIN/TAZOBACTAM SOD 3.375 GM in D5W MINI-BAG PLUS 50 ML IV SCH (10:45)
[2019-07-28] MEDS: PIPERACILLIN/TAZOBACTAM SOD 2.25 GM in D5W MINI-BAG PLUS 50 ML IV SCH ×3 (13:28→23:58)
[2019-07-28 14:00] VITALS: BP 132/65
--- NOTE | 2019-07-28 15:25 | IPNPDOC ---
Subjective Date Seen The patient was seen on 07/28/19. Subjective Chief Complaint/HPI Patient is comfortable sitting in bed, very cheerful today. Offers no new complaints General: Denies: ROS Unobtainable, Chills, Night Sweats, Fatigue, Malaise, Normal Appetite, Other Symptoms Constitutional: Denies: Chills, Fever, Malaise, Night Sweats, Weakness, Fatigue, Weight Loss, Lethargy, Other Pulmonary: Denies: Dyspnea, Cough, Pleuritic Chest Pain, Other Symptoms Cardiovascular: Denies: Chest Pain, Palpitations, Orthopnea, Paroxysmal Noc. Dyspnea, Edema, Lt Headedness, Other Symptoms Gastrointestinal: Denies: Nausea, Vomiting, Abdominal Pain, Diarrhea, Constipation, Melena, Hematochezia, Other Symptoms Hematologic: Denies: Bruising, Bleeding Excessively, Petecchia, Purpura, Enlarged Lymph Nodes, Other Hematologic Musculoskeletal: Denies: Neck Pain, Back Pain, Shoulder Pain, Arm Pain, Hand Pain, Leg Pain, Foot Pain, Joint Pain, Muscle Pain, Spasms, Other Symptoms Neurological: Denies: Weakness, Numbness, Incoordination, Change in speech, Confusion, Seizures, Other Symptoms Objective Physical Examination General Exam: Positive: Alert, Cooperative ENT Exam: Positive: Atraumatic, Mucous membr. moist/pink Neck Exam: Positive: Supple Chest Exam: Positive: Clear to auscultation, Normal air movement Heart Exam: Positive: Rate Normal, Normal S1, Normal S2 Abdomen Exam: Positive: Normal bowel sounds, Soft Male Exam: Positive: Normal Genital Exam Extremity Exam: Positive: Normal pulses, Other (. Dressing at the right foot noted) Skin Exam: Positive: Nl turgor and temperature Assessment /Plan Problems (1) Gangrene of toe of right foot Status: Acute Problem Text: Distal dried gangrene, with recent third metatarsal head excision and wound debridement, excisional type, including subcutaneous tissue, tendon and bone 07/10/19. 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 Positive enterococcus and wound cultures on ampicillin as per sensitivities for chronic osteomyelitis Pressure ulcers in bilateral heels. Boots are in place. The patient is Pravin lift and turn every hour. Wound care. Patient will eventually need below-knee amputation at some point Podiatry follow-up appreciated Awaiting halfway placement (2) HTN (hypertension) Status: Chronic Problem Text: Continue present medications (3) BPH (benign prostatic hyperplasia) Status: Chronic Problem Text: Continue present medications (4) Dementia Status: Chronic Problem Text: Continue present medications (5) HCAP (healthcare-associated pneumonia) Status: Acute Problem Text: CT chest shows: Moderate left pleural effusion. Consolidative infiltrate in the left lower lobe. There is patchy infiltrate or atelectasis in the right lower lobe. All of this is superimposed on chronic fibrotic, emphysematous and bullous change Will start patient on Zosyn and DC ampicillin. As per ID recommendations Repeat chest x-ray in a few days Plan/VTE VTE Prophylaxis Ordered?: Yes (lovenox 30 mg daily) VTE Exclusion Mechanical Proph: N/A:VTE Prophy Ordered VTE Exclusion Pharmacological: N/A:VTE Prophy Ordered VS, I&O, 24H, Fishbone Vital Signs/I&O Vital Signs Date Time Temp Pulse Resp B/P (MAP) Pulse Ox O2 Delivery O2 Flow Rate FiO2 07/28/19 10:00 97.4 71 17 113/49 (70) 94 Room Air I&O- Last 24 Hours up to 6 AM 07/28/19 06:00 Intake Total 555 ml Output Total 1100 ml Balance -545 ml Laboratory Data 24H LABS Laboratory Tests 2 07/28/19 05:54: Nucleated Red Blood Cells % (auto) 0.0, Anion Gap 10, Glomerular Filtration Rate 35.6, Calcium Level 8.4L CBC/BMP Laboratory Tests 07/28/19 05:54 ALVERTO EDDY MD Jul 28, 2019 15:25
[2019-07-28 18:00] VITALS: BP 133/66
[2019-07-28] MEDS: TAMSULOSIN 0.4 MG CAP PO SCH (21:02)
[2019-07-28] MEDS: VITAMIN D 1,000 INTERNATIONAL UNITS TABLET PO SCH (21:02)
[2019-07-28] MEDS: CYANOCOBALAMIN 500 MCG TAB PO SCH (21:02)
[2019-07-28] MEDS: DIVALPROEX 250MG *ER* TAB PO SCH (21:02)
[2019-07-28] MEDS: DONEPEZIL 5 MG TAB PO SCH (21:02)
[2019-07-28 22:00] VITALS: BP 117/76
[2019-07-29 02:00] VITALS: BP 125/72
[2019-07-29] MEDS: PIPERACILLIN/TAZOBACTAM SOD 2.25 GM in D5W MINI-BAG PLUS 50 ML IV SCH ×4 (05:46→23:46)
[2019-07-29] MEDS: HEPARIN SOD (PORCINE) 5000UNITS/ML VIAL (J1644 PER 1000UNITS) SQ SCH ×3 (05:46→20:36)
[2019-07-29 06:00] VITALS: BP 157/59
[2019-07-29 06:12] LABS: HEMATOCRIT 29.5 % (42.0-52.0); HEMOGLOBIN 9.5 g/dl (13.5-17.5); MEAN CORPUSCULAR HEMOGLOBIN 31.1 pg (27.0-33.0); MEAN CORPUSCULAR HGB CONC 32.2 g/dl (32.0-36.5); MEAN CORPUSCULAR VOLUME 96.7 fl (80.0-96.0); PLATELET COUNT, AUTOMATED 235 10^3/uL (150-450); RED BLOOD COUNT 3.05 10^6/uL (4.30-6.10)
[2019-07-29 06:44] LABS: ERYTHROCYTE SEDIMENTATION RATE 83 mm/hr (0-20)
[2019-07-29 06:46] LABS: C REACTIVE PROTEIN QUANTITATIV 3.61 MG/DL (0.00-0.30); CALCIUM LEVEL 8.6 MG/DL (8.8-10.2); CREATININE FOR GFR 1.86 MG/DL (0.70-1.30); GLOMERULAR FILTRATION RATE 36.9 (>35); POTASSIUM SERUM 4.2 MEQ/L (3.5-5.1)
[2019-07-29] MEDS ORDERED: BARIUM SULFATE 700 MG TABLET (E-Z-DISK) As Ordered ONE (09:06)
[2019-07-29] MEDS ORDERED: VARIBAR NECTAR 40% w/v 240ML SUSP BTL As Ordered ONE (09:06)
[2019-07-29] MEDS ORDERED: VARIBAR PUDDING 40% w/v 230ML TUBE As Ordered ONE (09:06)
[2019-07-29] MEDS ORDERED: E-Z-PAQUE 96% w/w SUSP 176GM BTL As Ordered ONE (09:06)
[2019-07-29] MEDS: CETIRIZINE (ZyrTEC) 10 MG TAB PO SCH (09:58)
[2019-07-29] MEDS: NYSTATIN 100,000 UNITS/GM TOPICAL PWD 15 GM TOP SCH ×2 (09:58→20:37)
[2019-07-29 10:00] VITALS: BP 160/61
--- NOTE | 2019-07-29 10:36 | REP ---
Examination Requested: Cookie Swallow Reason For Exam: Cough The procedure was performed by NARA Jones, under the direct supervision of Dr. Duarte. The procedure was performed with Arin Mckeon from speech pathology present. 5 ml aliquots of thin, pudding, mixed fruit within nectar base, soft food, nectar and honey consistency barium was administered. No penetration or aspiration was visualized throughout the course of the exam. The detailed report of this examination will be provided by speech pathology. 1.7 minutes of fluoroscopy time was utilized for this procedure. Reviewed by NARA Montes 07/29/2019 09:54 A Electronically Signed by Jameson Duarte MD 07/29/2019 10:27 A
[2019-07-29 14:00] VITALS: BP 105/52
[2019-07-29 18:00] VITALS: BP 135/55
[2019-07-29] MEDS: TAMSULOSIN 0.4 MG CAP PO SCH (20:35)
[2019-07-29] MEDS: VITAMIN D 1,000 INTERNATIONAL UNITS TABLET PO SCH (20:35)
[2019-07-29] MEDS: DIVALPROEX 250MG *ER* TAB PO SCH (20:36)
[2019-07-29] MEDS: CYANOCOBALAMIN 500 MCG TAB PO SCH (20:36)
[2019-07-29] MEDS: DONEPEZIL 5 MG TAB PO SCH (20:36)
[2019-07-29 22:00] VITALS: BP 144/68
[2019-07-30 02:00] VITALS: BP 129/66
[2019-07-30] MEDS: PIPERACILLIN/TAZOBACTAM SOD 2.25 GM in D5W MINI-BAG PLUS 50 ML IV SCH ×4 (05:10→23:30)
[2019-07-30] MEDS: HEPARIN SOD (PORCINE) 5000UNITS/ML VIAL (J1644 PER 1000UNITS) SQ SCH ×3 (05:11→22:02)
[2019-07-30 06:00] VITALS: BP 131/70
[2019-07-30 08:00] VITALS: BP 111/48
[2019-07-30] MEDS: NYSTATIN 100,000 UNITS/GM TOPICAL PWD 15 GM TOP SCH ×2 (09:44→19:58)
[2019-07-30] MEDS: CETIRIZINE (ZyrTEC) 10 MG TAB PO SCH (09:44)
[2019-07-30 10:00] VITALS: BP 111/48
--- NOTE | 2019-07-30 10:42 | IPN ---
DATE: 07/29/2019 Cristian was seen this afternoon while taking his nap. The afternoons are not good for him. He is always grumpy and irritable. He did not want to be examined, stating he was cold and wanted to be covered. According to his nurse, he was up in the chair all morning for breakfast up until lunch and after lunch he went to take a nap. He has not had much of a cough. No shortness of breath. He is not on oxygen. There was some concern of aspiration and therefore the patient had an esophageal x-ray with a cookie swallow which was negative for aspiration. A CT chest was done on 07/27/2019 which showed a left pleural effusion with possibility of an infiltrate in the left lower lobe and right lower lobe. He has had no fever or chills. On physical exam, vital signs are stable. Heart: Normal S1 and S2. Distant lungs are clear anteriorly. I could not sit him up to listen to his lungs. Abdomen is soft, nontender. Extremities: No edema. His right foot wound was not examined today and it will be examined tomorrow as he is very irritable. Labs: Sodium 139, potassium 4.2, chloride 104, bicarb 26, BUN 22, creatinine 1.86, glucose 78, calcium 8.6, CRP 3.61. Procalcitonin 0.07. BNP 3981. White count 7, hemoglobin 9.5, hematocrit 29.5, platelets 235. ESR 83. Methicillin-resistant Staphylococcus aureus (MRSA) screen negative on 07/26/2019. Medications: IV ampicillin was switched to IV Zosyn to cover for aspiration pneumonia, currently day number two. CT of chest on 07/27/2019 with moderate left pleural effusion, consolidation and infiltrate in the left lower lobe and patchy infiltrate in the right lower lobe. IMPRESSIONS: 1. Acute osteomyelitis of the right foot. Wound without any necrotic tissue and culture positive for E. faecalis. He had been on ampicillin and now switched to Zosyn for continued coverage. 2. Abnormal chest CT with a questionable pneumonia. The patient had not had a fever. No white count and procalcitonin is normal. I am not sure that he really did have a pneumonia versus just fluid overload. At this point since he has been switched to Zosyn and there was concern of a new infiltrate, would continue Zosyn for a total of 7 days and then switch back to ampicillin for acute osteomyelitis. PLAN: The case has been discussed Dr. Briones. IV Zosyn for 1 week and then switch back to IV ampicillin.
[2019-07-30 14:00] VITALS: BP 126/58
[2019-07-30] MEDS: DONEPEZIL 5 MG TAB PO SCH (19:59)
[2019-07-30] MEDS: DIVALPROEX 250MG *ER* TAB PO SCH (19:59)
[2019-07-30] MEDS: VITAMIN D 1,000 INTERNATIONAL UNITS TABLET PO SCH (19:59)
[2019-07-30] MEDS: TAMSULOSIN 0.4 MG CAP PO SCH (19:59)
[2019-07-30] MEDS: CYANOCOBALAMIN 500 MCG TAB PO SCH (19:59)
[2019-07-30 22:00] VITALS: BP 114/49
[2019-07-31 02:00] VITALS: BP 149/67
[2019-07-31] MEDS: PIPERACILLIN/TAZOBACTAM SOD 2.25 GM in D5W MINI-BAG PLUS 50 ML IV SCH ×3 (05:16→17:49)
[2019-07-31] MEDS: HEPARIN SOD (PORCINE) 5000UNITS/ML VIAL (J1644 PER 1000UNITS) SQ SCH ×3 (05:16→21:04)
[2019-07-31 06:00] VITALS: BP 157/60
[2019-07-31] MEDS: CETIRIZINE (ZyrTEC) 10 MG TAB PO SCH (09:47)
[2019-07-31] MEDS: NYSTATIN 100,000 UNITS/GM TOPICAL PWD 15 GM TOP SCH ×2 (09:48→21:04)
[2019-07-31 10:00] VITALS: BP 110/48
--- NOTE | 2019-07-31 11:07 | IPNPDOC ---
Subjective Date Seen The patient was seen on 07/31/19. Subjective Chief Complaint/HPI Patient is comfortable in no distress. Offers no new complaints General: Denies: ROS Unobtainable, Chills, Night Sweats, Fatigue, Malaise, Normal Appetite, Other Symptoms Constitutional: Denies: Chills, Fever, Malaise, Night Sweats, Weakness, Fatigue, Weight Loss, Lethargy, Other Pulmonary: Denies: Dyspnea, Cough, Pleuritic Chest Pain, Other Symptoms Cardiovascular: Denies: Chest Pain, Palpitations, Orthopnea, Paroxysmal Noc. Dyspnea, Edema, Lt Headedness, Other Symptoms Gastrointestinal: Denies: Nausea, Vomiting, Abdominal Pain, Diarrhea, Constipation, Melena, Hematochezia, Other Symptoms Musculoskeletal: Denies: Neck Pain, Back Pain, Shoulder Pain, Arm Pain, Hand Pain, Leg Pain, Foot Pain, Joint Pain, Muscle Pain, Spasms, Other Symptoms Neurological: Denies: Weakness, Numbness, Incoordination, Change in speech, Confusion, Seizures, Other Symptoms Objective Physical Examination Chest Exam: Positive: Clear to auscultation, Normal air movement Heart Exam: Positive: Rate Normal, Normal S1, Normal S2 Abdomen Exam: Positive: Normal bowel sounds, Soft Male Exam: Positive: Normal Genital Exam Extremity Exam: Positive: Normal pulses, Other (. Dressing at the right foot noted) Skin Exam: Positive: Nl turgor and temperature Assessment /Plan Problems (1) Gangrene of toe of right foot Status: Acute Problem Text: Distal dried gangrene, with recent third metatarsal head excision and wound debridement, excisional type, including subcutaneous tissue, tendon and bone 07/10/19. 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 Positive enterococcus and wound cultures on ampicillin as per sensitivities for chronic osteomyelitis Pressure ulcers in bilateral heels. Boots are in place. The patient is Pravin lift and turn every hour. Wound care. Patient will eventually need below-knee amputation at some point Awaiting group home placement . All meds were renewed and will order CBC, CMP on Friday (2) HTN (hypertension) Status: Chronic Problem Text: Continue present medications (3) BPH (benign prostatic hyperplasia) Status: Chronic Problem Text: Continue present medications (4) Dementia Status: Chronic Problem Text: Continue present medications (5) HCAP (healthcare-associated pneumonia) Status: Acute Problem Text: CT chest shows: Moderate left pleural effusion. Consolidative infiltrate in the left lower lobe. There is patchy infiltrate or atelectasis in the right lower lobe. All of this is superimposed on chronic fibrotic, emphysematous and bullous change Will start patient on Zosyn and DC ampicillin. As per ID recommendations Repeat chest x-ray in a few days Plan/VTE VTE Prophylaxis Ordered?: Yes (lovenox 30 mg daily) VTE Exclusion Mechanical Proph: N/A:VTE Prophy Ordered VTE Exclusion Pharmacological: N/A:VTE Prophy Ordered VS, I&O, 24H, Fishbone Vital Signs/I&O Vital Signs Date Time Temp Pulse Resp B/P (MAP) Pulse Ox O2 Delivery O2 Flow Rate FiO2 07/31/19 06:00 97.8 47 18 157/60 (92) 94 Room Air I&O- Last 24 Hours up to 6 AM 07/31/19 06:00 Intake Total 415 ml Output Total 0 ml Balance 415 ml Laboratory Data Microbiology Microbiology 07/28/19 Gram Stain - Final, Complete 07/28/19 Sputum Culture - Final, Complete Yeast Like Organism ALVERTO EDDY MD July 31, 2019 11:07
[2019-07-31 14:00] VITALS: BP 145/60
[2019-07-31 18:00] VITALS: BP 140/55
[2019-07-31] MEDS: DIVALPROEX 250MG *ER* TAB PO SCH (21:04)
[2019-07-31] MEDS: CYANOCOBALAMIN 500 MCG TAB PO SCH (21:04)
[2019-07-31] MEDS: TAMSULOSIN 0.4 MG CAP PO SCH (21:04)
[2019-07-31] MEDS: VITAMIN D 1,000 INTERNATIONAL UNITS TABLET PO SCH (21:04)
[2019-07-31] MEDS: DONEPEZIL 5 MG TAB PO SCH (21:04)
[2019-07-31 22:00] VITALS: BP 167/60
[2019-08-01] VITALS (7 sets, daily range): BP systolic 92–180; BP diastolic 40–70
[2019-08-01] MEDS: PIPERACILLIN/TAZOBACTAM SOD 2.25 GM in D5W MINI-BAG PLUS 50 ML IV SCH ×4 (00:09→18:24)
[2019-08-01] MEDS: HEPARIN SOD (PORCINE) 5000UNITS/ML VIAL (J1644 PER 1000UNITS) SQ SCH ×3 (05:50→20:50)
[2019-08-01] MEDS: NYSTATIN 100,000 UNITS/GM TOPICAL PWD 15 GM TOP SCH ×2 (09:00→20:43)
--- NOTE | 2019-08-01 09:45 | IPN ---
DATE: 07/30/2019 Tobin is doing great this morning. He was sitting in a chair and had breakfast. He denied any complaint. No nausea, vomiting, or diarrhea. No abdominal pain. No shortness of breath. He has some mild cough, usually after he eats. ON PHYSICAL EXAM: Temperature is 97.5, pulse 56, respirations 16, blood pressure 126/58, oxygen saturation 98% on room air. Heart: Normal S1, S2, distant. No murmurs. Lungs: Diminished breath sounds at bases but no wheezing. Abdomen: Soft, nontender. No hepatosplenomegaly. Extremities: Right foot ulcer along the 5th metatarsal is decreased in size, measuring less 2 cm x 1 cm with 1 cm depth. There is no purulent discharge. There is no surrounding cellulitis. More medially, there is an eschar with a dry scab, which is peeling, that measures about [address] Chest showed pleural effusion on the left side, moderate, with consolidation in the left lower lobe and patchy infiltrate in the right lower lobe. IMPRESSION: 1. Acute osteomyelitis of the right foot, doing much better with culture positive for Enterococcus faecalis, intravenous (IV) vancomycin from 07/12/2019 to 07/20/2019, and then patient was switched to IV ampicillin from 07/20/2019 to 07/27/2019, and currently on IV Zosyn. The patient has been on appropriate antibiotics for chronic osteomyelitis for the past 2-1/2 weeks. 2. Possibility of aspiration pneumonia versus fluid overload. The patient's procalcitonin is 0.07, which means aspiration pneumonia bacterial infection unlikely. The patient will finish 7 days of Zosyn, currently day #3 out of 7, and then switch back to IV ampicillin. PLAN: Continue IV Zosyn; end of treatment will be 08/03/2019, and then switch back to ampicillin at 2 grams every 6 hours for osteomyelitis until 08/23/2019 for acute osteomyelitis right foot MTDD
[2019-08-01] MEDS: CETIRIZINE (ZyrTEC) 10 MG TAB PO SCH (10:12)
[2019-08-01] MEDS: DONEPEZIL 5 MG TAB PO SCH (20:42)
[2019-08-01] MEDS: CYANOCOBALAMIN 500 MCG TAB PO SCH (20:42)
[2019-08-01] MEDS: VITAMIN D 1,000 INTERNATIONAL UNITS TABLET PO SCH (20:42)
[2019-08-01] MEDS: TAMSULOSIN 0.4 MG CAP PO SCH (20:42)
[2019-08-01] MEDS: VALPROIC ACID 250MG/5ML SOL ORAL SYRINGE *DRAW UP EXACT DOSE PO SCH (20:44)
[2019-08-02] MEDS: PIPERACILLIN/TAZOBACTAM SOD 2.25 GM in D5W MINI-BAG PLUS 50 ML IV SCH ×5 (00:12→23:31)
[2019-08-02 02:00] VITALS: BP 140/55
[2019-08-02 06:00] VITALS: BP 130/57
[2019-08-02] MEDS: HEPARIN SOD (PORCINE) 5000UNITS/ML VIAL (J1644 PER 1000UNITS) SQ SCH ×4 (06:05→21:09)
[2019-08-02 07:21] LABS: HEMATOCRIT 28.7 % (42.0-52.0); HEMOGLOBIN 9.3 g/dl (13.5-17.5); MEAN CORPUSCULAR HGB CONC 32.4 g/dl (32.0-36.5); MEAN CORPUSCULAR VOLUME 95.7 fl (80.0-96.0); PLATELET COUNT, AUTOMATED 247 10^3/uL (150-450); WHITE BLOOD COUNT 7.5 10^3/uL (4.0-10.0)
[2019-08-02 07:47] LABS: ALBUMIN 1.8 GM/DL (3.2-5.2); BILIRUBIN,TOTAL 0.6 MG/DL (0.2-1.0); CREATININE FOR GFR 1.53 MG/DL (0.70-1.30); GLOMERULAR FILTRATION RATE 46.3 (>35); POTASSIUM SERUM 3.5 MEQ/L (3.5-5.1); TOTAL PROTEIN 6.1 GM/DL (6.4-8.2)
[2019-08-02] MEDS: NYSTATIN 100,000 UNITS/GM TOPICAL PWD 15 GM TOP SCH ×2 (09:11→21:02)
[2019-08-02] MEDS: VALPROIC ACID 250MG/5ML SOL ORAL SYRINGE *DRAW UP EXACT DOSE PO SCH ×2 (09:14→21:02)
[2019-08-02] MEDS: CETIRIZINE (ZyrTEC) 10 MG TAB PO SCH (09:14)
--- NOTE | 2019-08-02 12:54 | IPNPDOC ---
Subjective Date Seen The patient was seen on 08/02/19. Subjective Chief Complaint/HPI Patient is comfortable sitting in chair. Offers no new complaints General: Denies: ROS Unobtainable, Chills, Night Sweats, Fatigue, Malaise, Normal Appetite, Other Symptoms Constitutional: Denies: Chills, Fever, Malaise, Night Sweats, Weakness, Fatigue, Weight Loss, Lethargy, Other Skin: Denies: Rash, Lesions, Jaundice, Bruising, Itching, Dry, Breakdown, Nail Changes, Other Pulmonary: Denies: Dyspnea, Cough, Pleuritic Chest Pain, Other Symptoms Cardiovascular: Denies: Chest Pain, Palpitations, Orthopnea, Paroxysmal Noc. Dyspnea, Edema, Lt Headedness, Other Symptoms Gastrointestinal: Denies: Nausea, Vomiting, Abdominal Pain, Diarrhea, Constipation, Melena, Hematochezia, Other Symptoms Musculoskeletal: Denies: Neck Pain, Back Pain, Shoulder Pain, Arm Pain, Hand Pain, Leg Pain, Foot Pain, Joint Pain, Muscle Pain, Spasms, Other Symptoms Neurological: Denies: Weakness, Numbness, Incoordination, Change in speech, Confusion, Seizures, Other Symptoms Objective Physical Examination General Exam: Positive: Alert, Cooperative Neck Exam: Positive: Supple Chest Exam: Positive: Clear to auscultation, Normal air movement Heart Exam: Positive: Rate Normal, Normal S1, Normal S2 Abdomen Exam: Positive: Normal bowel sounds, Soft Male Exam: Positive: Normal Genital Exam Extremity Exam: Positive: Normal pulses, Other (. Dressing at the right foot noted) Skin Exam: Positive: Nl turgor and temperature Assessment /Plan Problems (1) HCAP (healthcare-associated pneumonia) Status: Acute Problem Text: CT chest shows: Moderate left pleural effusion. Consolidative infiltrate in the left lower lobe. There is patchy infiltrate or atelectasis in the right lower lobe. All of this is superimposed on chronic fibrotic, emphysematous and bullous change Patient has been started on IV Zosyn secondary to right lower lobe infiltrate as per recommendation, and also covers patient's chronic osteomyelitis. Patient is clinically improved. He is afebrile. No shortness of breath. WBC count is 7.5. Patient's will finish one week of IV Zosyn tomorrow at 08/03/2019, please get infectious disease follow-up tomorrow to decide whether to continue IV ampicillin after works for chronic osteomyelitis. (2) Gangrene of toe of right foot Status: Acute Problem Text: Distal dried gangrene, with recent third metatarsal head excision and wound debridement, excisional type, including subcutaneous tissue, tendon and bone 07/10/19. 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 Positive enterococcus and wound cultures on ampicillin as per sensitivities for chronic osteomyelitis Pressure ulcers in bilateral heels. Boots are in place. The patient is Pravin lift and turn every hour. Wound care. Patient will eventually need below-knee amputation at some point Awaiting alf placement (3) HTN (hypertension) Status: Chronic Problem Text: Continue present medications (4) BPH (benign prostatic hyperplasia) Status: Chronic Problem Text: Continue present medications (5) Dementia Status: Chronic Problem Text: Continue present medications Plan/VTE VTE Prophylaxis Ordered?: Yes (lovenox 30 mg daily) VTE Exclusion Mechanical Proph: N/A:VTE Prophy Ordered VTE Exclusion Pharmacological: N/A:VTE Prophy Ordered VS, I&O, 24H, Fishbone Vital Signs/I&O Vital Signs Date Time Temp Pulse Resp B/P (MAP) Pulse Ox O2 Delivery O2 Flow Rate FiO2 08/02/19 06:00 97.6 55 16 130/57 (81) 95 Room Air I&O- Last 24 Hours up to 6 AM 08/02/19 06:00 Intake Total 1020 ml Output Total 100 ml Balance 920 ml Laboratory Data 24H LABS Laboratory Tests 2 08/02/19 07:03: Nucleated Red Blood Cells % (auto) 0.0, Anion Gap 6L, Glomerular Filtration Rate 46.3, Calcium Level 8.0L, Total Bilirubin 0.6, Aspartate Amino Transf (AST/SGOT) 10, Alanine Aminotransferase (ALT/SGPT) 8L, Alkaline Phosphatase 46, Total Protein 6.1L, Albumin 1.8L, Albumin/Globulin Ratio 0.42L CBC/BMP Laboratory Tests 08/02/19 07:03 Microbiology Microbiology 07/28/19 Gram Stain - Final, Complete 07/28/19 Sputum Culture - Final, Complete Yeast Like Organism ALVERTO EDDY MD August 02, 2019 12:54
[2019-08-02 14:00] VITALS: BP 124/52
[2019-08-02 15:29] LABS: C REACTIVE PROTEIN QUANTITATIV 2.23 MG/DL (0.00-0.30)
[2019-08-02] MEDS: DONEPEZIL 5 MG TAB PO SCH (21:01)
[2019-08-02] MEDS: VITAMIN D 1,000 INTERNATIONAL UNITS TABLET PO SCH (21:01)
[2019-08-02] MEDS: TAMSULOSIN 0.4 MG CAP PO SCH (21:02)
[2019-08-02] MEDS: CYANOCOBALAMIN 500 MCG TAB PO SCH (21:02)
[2019-08-02 22:00] VITALS: BP 178/72
[2019-08-03 01:19] VITALS: BP 146/74
[2019-08-03 06:00] VITALS: BP 167/66
[2019-08-03] MEDS: HEPARIN SOD (PORCINE) 5000UNITS/ML VIAL (J1644 PER 1000UNITS) SQ SCH ×3 (06:07→21:28)
[2019-08-03] MEDS: PIPERACILLIN/TAZOBACTAM SOD 2.25 GM in D5W MINI-BAG PLUS 50 ML IV SCH ×4 (06:07→23:40)
[2019-08-03] MEDS: CETIRIZINE (ZyrTEC) 10 MG TAB PO SCH (09:00)
[2019-08-03] MEDS: NYSTATIN 100,000 UNITS/GM TOPICAL PWD 15 GM TOP SCH ×2 (09:00→21:29)
[2019-08-03] MEDS: VALPROIC ACID 250MG/5ML SOL ORAL SYRINGE *DRAW UP EXACT DOSE PO SCH ×2 (11:18→21:28)
[2019-08-03 14:00] VITALS: BP 102/57
--- NOTE | 2019-08-03 20:57 | IPNPDOC ---
Date Seen The patient was seen on 08/03/19. Progress Note SUBJECTIVE: Awake with no complaints. Denies SOB, chest pain. OBJECTIVE: VS: Please see below PHYSICAL EXAMINATION: CONSTITUTIONAL: Resting in bed. EYES: PERRLA, EOM intact HENT, MOUTH: Normocephalic, atraumatic, moist mucous membranes NECK: SUPPLE, no JVD, no lymphadenopathy, no carotid bruit CV: Regular rate and rhythm, S1S2 normal, no murmurs/rubs/gallops RESPIRATORY: mild crackles in LLL, no rales/rhonchi/wheezes GI: BS positive in 4 quadrants, soft, nontender, nondistended, no rebound or guarding, no organomegaly : Deferred MUSCULOSKELETAL: Warm extremities, no mottling bilaterally. Area of amputation appears clean, nonsuppurative, no foul smell, healing scabbed area clean. Contracted lower ext bilaterally. No cyanosis, clubbing, swelling, joint deformity, extremity edema INTEGUMENTARY: Intact, no rashes, no lesions, no erythema NEUROLOGIC: Cranial Nerves II-XII are intact, no focal deficits CURRENT MEDICATIONS: Please see below LABORATORY DATA: Please see below IMAGING: No new imaging. 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 PLAN: (1) HCAP (healthcare-associated pneumonia). IV zosyn until 08/04/19 to complete 7 days. WBC wnl. (2) Acute kidney injury. Improving. F/u daily labs. Avoid nephrotoxic meds. (3) Distal dried gangrene, with recent third metatarsal head excision and wound debridement, excisional type, including subcutaneous tissue, tendon and bone 07/10/19. 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 Positive enterococcus and wound cultures on ampicillin as per sensitivities for chronic osteomyelitis. Pressure ulcers in bilateral heels. Boots are in place. The patient is Pravin lift and turn every hour. Wound care. Patient will eventually need below-knee amputation at some point Awaiting long-term placement. Resume Ampicillin 2 gm Q6 hrs 08/04/19. (4) BPH, chronic. Continue present medications (5) Dementia, chronic. Continue present medications (6) HTN, chronic. Continue present medications (7) DVT px- Enoxaparin. DISPOSITION: C/w treatment above. Awaiting placement to SNF. Podiatry and ID following. VS, I&O, 24H, Fishbone Vital Signs/I&O Vital Signs Date Time Temp Pulse Resp B/P (MAP) Pulse Ox O2 Delivery O2 Flow Rate FiO2 08/03/19 14:00 97.7 74 16 102/57 (72) 94 Room Air I&O- Last 24 Hours up to 6 AM 08/03/19 06:00 Intake Total 920 ml Output Total 100 ml Balance 820 ml Laboratory Data Microbiology Microbiology 07/28/19 Gram Stain - Final, Complete 07/28/19 Sputum Culture - Final, Complete Yeast Like Organism Current Medications Current Medications Medications (Trade) Dose Ordered Sig/Hubert Route PRN Reason Start Time Stop Time Status Last Admin Dose Admin Acetaminophen (Tylenol Tab) 650 mg Q4H PRN PO PAIN OR FEVER 02/12/19 02:30 07/23/19 21:08 Amlodipine Besylate (Norvasc) 2.5 mg BID PO 07/12/19 02:30 07/12/19 10:15 DC 07/12/19 08:17 Amlodipine Besylate (Norvasc) 5 mg BID PO 02/21/19 09:00 02/21/19 08:44 DC Amlodipine Besylate (Norvasc) 5 mg DAILY PO 05/10/19 09:00 05/10/19 09:32 DC Amlodipine Besylate (Norvasc) 5 mg QHS PO 04/20/19 21:00 04/29/19 14:56 DC 04/28/19 20:47 Amlodipine Besylate (Norvasc) 10 mg DAILY PO 05/03/19 09:00 05/09/19 09:24 DC 05/07/19 08:07 Amlodipine Besylate (Norvasc) 10 mg DAILY PO 02/12/19 09:00 02/13/19 09:42 DC 02/13/19 08:52 Amlodipine Besylate (Norvasc) 10 mg DAILY PO 02/13/19 09:00 02/13/19 09:45 DC Amlodipine Besylate (Norvasc) 10 mg DAILY PO 02/14/19 09:00 02/21/19 06:46 DC 02/19/19 08:33 Amlodipine Besylate (Norvasc) 10 mg QHS PO 02/21/19 21:00 04/20/19 15:21 DC 04/19/19 20:12 Amoxicillin/ Clavulanate Potassium (Augmentin) 500 mg BID PO 05/01/19 10:00 05/09/19 07:52 DC 05/08/19 19:47 Amoxicillin/ Clavulanate Potassium (Augmentin) 500 mg BID PO 03/07/19 21:00 03/12/19 10:33 DC 03/12/19 09:04 Amoxicillin/ Clavulanate Potassium (Augmentin) 875 mg BID PO 05/01/19 21:00 UNV Amoxicillin/ Clavulanate Potassium (Augmentin) 875 mg BID PO 02/15/19 09:00 02/22/19 08:59 DC 02/21/19 20:29 Ampicillin Sodium 2 gm/Dextrose 100 ml @ 200 mls/hr Q6H IV 07/20/19 17:00 07/27/19 13:44 DC 07/27/19 04:31 Ampicillin Sodium 2 gm/Dextrose 100 ml @ 200 mls/hr Q6H IV 07/27/19 14:00 07/28/19 10:39 DC 07/28/19 09:24 Ampicillin Sodium/ Sulbactam Sodium 1.5 gm/Dextrose 50 ml @ 100 mls/hr Q6H IV 02/12/19 05:00 02/15/19 09:27 DC 02/15/19 05:19 Ampicillin Sodium/ Sulbactam Sodium 3 gm/Dextrose 100 ml @ 200 mls/hr Q12H IV 03/06/19 23:00 03/07/19 17:17 DC 03/07/19 11:39 Atenolol (Tenormin) 12.5 mg BID PO 02/13/19 09:00 02/15/19 14:32 DC 02/14/19 20:57 Azithromycin (Zithromax Tab) 500 mg DAILY PO 03/07/19 09:00 03/13/19 14:18 DC 03/13/19 10:03 Azithromycin 500 mg/IV Miscellaneous Supplies 1 each/ Dextrose 255 ml @ 255 mls/hr Q24H IV 03/06/19 00:00 03/07/19 17:17 DC 03/07/19 00:44 Bisacodyl (Dulcolax Suppository) 10 mg Q2DP PRN [place] CONSTIPATION 02/12/19 18:45 02/13/19 14:23 Cephalexin Monohydrate (Keflex) 500 mg BID PO 05/25/19 09:00 06/07/19 23:59 DC 06/07/19 21:47 Cephalexin Monohydrate (Keflex) 500 mg Q12H PO 06/29/19 09:00 07/08/19 08:59 DC 07/07/19 20:39 Cetirizine HCl (ZyrTEC) 10 mg DAILY PO 02/14/19 09:00 08/02/19 09:14 Cyanocobalamin (Vitamin B12) 500 mcg QHS PO 02/12/19 21:00 08/02/19 21:02 Dextrose/Lactated Ringer's 1,000 ml @ 40 mls/hr Q24H IV 02/12/19 02:30 02/12/19 17:11 DC 02/12/19 03:12 Divalproex Sodium (Depakote Er) 500 mg QHS PO 02/12/19 21:00 08/01/19 13:32 DC 07/31/19 21:04 Docusate Sodium (Colace) 100 mg Q12HP PRN PO CONSTIPATION 05/03/19 11:45 07/19/19 20:51 Donepezil HCl (AriCEPT) 10 mg QHS PO 02/12/19 21:00 08/02/19 21:01 Enoxaparin Sodium (Lovenox) 30 mg DAILY SC 02/15/19 09:00 07/25/19 08:03 DC 07/24/19 08:46 Furosemide (LASIX injection) 40 mg DAILY IV 07/26/19 09:00 07/27/19 13:01 DC 07/27/19 10:21 Guaifenesin (Mucinex Tab Er) 600 mg BID PO 07/25/19 21:00 07/25/19 17:37 DC Guaifenesin (Robitussin) 10 ml Q4HP PRN PO COUGH 07/25/19 17:45 07/25/19 18:41 Heparin Sodium (Porcine) (Heparin) 5,000 units Q8H SQ 07/25/19 14:00 08/03/19 06:07 Home Med (Med Rec Complete!) ASDIRECTED XX 02/12/19 04:00 02/12/19 04:05 DC Hydralazine HCl (Apresoline) 10 mg Q4H IV 02/12/19 14:00 02/13/19 07:26 DC 02/13/19 05:23 Hydralazine HCl (Apresoline) 20 mg Q6H PO 02/12/19 12:00 02/12/19 13:20 DC Hydralazine HCl (Apresoline) 25 mg QID PO 02/13/19 09:00 02/17/19 12:49 DC 02/17/19 11:08 Isosorbide Dinitrate (Isordil) 20 mg Q6H PO 02/13/19 18:00 02/17/19 12:49 DC 02/17/19 11:06 Labetalol HCl (Normodyne, Trandate) 2 mg Q6HP PRN IV BP > 160/100 02/12/19 03:45 02/12/19 12:21 DC Lactated Ringer's 1,000 ml @ 75 mls/hr [id number] IV 04/28/19 08:15 04/29/19 08:06 DC 04/28/19 20:48 Lactated Ringer's 1,000 ml @ 75 mls/hr [id number] IV 04/29/19 14:30 05/01/19 07:51 DC 04/30/19 19:00 Levofloxacin (Levaquin) 250 mg Q24H PO 05/30/19 22:00 06/12/19 23:59 DC 06/12/19 21:39 Levofloxacin (Levaquin) 750 mg Q48H PO 07/01/19 06:00 07/09/19 10:00 DC 07/09/19 10:07 Levofloxacin (Levaquin) 750 mg Q48H PO 07/26/19 18:00 07/27/19 13:05 DC 07/26/19 19:46 Lisinopril (Prinivil) 5 mg DAILY PO 07/12/19 02:30 07/12/19 10:15 DC 07/12/19 02:57 Lisinopril (Prinivil) 5 mg QHS PO 07/15/19 21:00 07/25/19 08:03 DC 07/24/19 22:18 Lisinopril (Prinivil) 5 mg QHS PO 02/21/19 21:00 04/29/19 14:56 DC 04/28/19 20:46 Lisinopril (Prinivil) 10 mg DAILY PO 05/03/19 09:00 05/09/19 09:24 DC 05/07/19 08:07 Lisinopril (Prinivil) 10 mg QHS PO 05/09/19 21:00 07/09/19 09:01 DC 07/08/19 21:36 Lisinopril (Prinivil) 10 mg QHS PO 02/17/19 21:00 02/21/19 06:43 DC 02/20/19 20:31 Lisinopril (Prinivil) 10 mg QHS PO 02/21/19 21:00 02/21/19 08:44 DC Lisinopril (Prinivil) 20 mg QHS PO 02/21/19 21:00 02/21/19 06:46 DC Magnesium Hydroxide (Milk Of Magnesia) 30 ml DAILYPRN PRN PO CONSTIPATION 02/12/19 19:00 02/13/19 08:57 Metronidazole (Flagyl) 500 mg Q8H PO 05/01/19 14:00 05/03/19 10:32 DC 05/03/19 06:56 Miscellaneous (Unresolved Clarification Entry) SEE LABEL COMMENTS DAILY XX 04/15/19 09:00 Cancel Miscellaneous (Unresolved Clarification Entry) SEE LABEL COMMENTS DAILY XX 04/21/19 09:00 04/21/19 16:34 DC Miscellaneous (Unresolved Clarification Entry) SEE LABEL COMMENTS DAILY XX 05/17/19 09:00 05/17/19 11:43 DC Miscellaneous (Unresolved Clarification Entry) SEE LABEL COMMENTS DAILY XX 05/23/19 09:00 05/24/19 12:03 DC Miscellaneous (Unresolved Clarification Entry) SEE LABEL COMMENTS DAILY XX 05/05/19 09:00 05/05/19 11:26 DC Miscellaneous (Unresolved Clarification Entry) SEE LABEL COMMENTS DAILY XX 06/18/19 09:00 06/20/19 08:54 DC Miscellaneous (Unresolved Clarification Entry) SEE LABEL COMMENTS DAILY XX 06/25/19 09:00 06/25/19 11:30 DC Miscellaneous (Unresolved Clarification Entry) SEE LABEL COMMENTS DAILY XX 07/11/19 09:00 07/11/19 11:57 DC Miscellaneous (Unresolved Clarification Entry) SEE LABEL COMMENTS DAILY XX 02/21/19 09:00 02/22/19 06:40 DC Miscellaneous (Unresolved Clarification Entry) SEE LABEL COMMENTS DAILY XX 02/22/19 09:00 02/22/19 12:30 DC Miscellaneous (Unresolved Clarification Entry) SEE LABEL COMMENTS DAILY XX 02/26/19 09:00 02/26/19 12:38 DC Miscellaneous (Unresolved Clarification Entry) SEE LABEL COMMENTS DAILY XX 03/15/19 09:00 03/15/19 10:31 DC Miscellaneous (Unresolved Clarification Entry) SEE LABEL COMMENTS DAILY XX 03/25/19 09:00 03/25/19 12:55 DC Nitroglycerin (Nitrobid 2%) HOLD FOR SBP<140 1 INCH Q4H TOP 02/12/19 13:00 02/13/19 09:28 DC 02/13/19 08:53 Nystatin (Mycostatin Powder, Nystop) groin BID TOP 06/10/19 09:00 08/02/19 21:02 Piperacillin Sod/ Tazobactam Sod 2.25 gm/Dextrose 50 ml @ 100 mls/hr Q6H IV 07/09/19 14:00 07/12/19 08:42 DC 07/12/19 08:16 Piperacillin Sod/ Tazobactam Sod 2.25 gm/Dextrose 50 ml @ 100 mls/hr Q6H IV 07/28/19 12:00 08/03/19 17:24 Piperacillin Sod/ Tazobactam Sod 3.375 gm/Dextrose 50 ml @ 50 mls/hr Q6H IV 04/29/19 15:00 05/01/19 07:51 DC 05/01/19 03:19 Piperacillin Sod/ Tazobactam Sod 3.375 gm/Dextrose 50 ml @ 50 mls/hr Q6H IV 07/09/19 14:00 07/09/19 13:52 DC Piperacillin Sod/ Tazobactam Sod 3.375 gm/Dextrose 50 ml @ 50 mls/hr Q6H IV 07/28/19 10:45 07/28/19 10:45 DC Sodium Biphosphate/ Sodium Phosphate (Fleet Enema) 1 ea Q3DP PRN MA CONSTIPATION 02/12/19 19:00 Sodium Chloride 1,000 ml @ 60 mls/hr [id number] IV 07/25/19 08:15 07/26/19 08:40 DC 07/25/19 16:28 Sodium Chloride 1,000 ml @ 80 mls/hr [id number] IV 07/09/19 09:00 07/11/19 14:05 DC 07/11/19 08:49 Sodium Chloride 1,000 ml @ 80 mls/hr [id number] IV 07/24/19 09:00 07/25/19 05:45 DC 07/24/19 22:17 Sodium Chloride (Cache Nasal [place]) 2 spray Q2HP PRN NA NASAL DRYNESS 02/13/19 09:30 Sodium Chloride (Cache Nasal [place]) 2 spray TID NA 02/13/19 09:00 03/18/19 09:01 DC 03/17/19 21:33 Tamsulosin HCl (Flomax) 0.4 mg QHS PO 02/12/19 21:00 08/02/19 21:02 Trazodone HCl (Desyrel) 25 mg QHSP PRN PO INSOMNIA 02/21/19 06:45 04/23/19 01:42 Valproic Acid (Depakene Solution) 250 mg BID PO 08/01/19 21:00 08/03/19 11:18 Vancomycin HCl 500 mg/Dextrose 110 ml @ 110 mls/hr Q24H IV 07/19/19 12:00 07/20/19 12:22 DC 07/19/19 12:13 Vancomycin HCl 500 mg/IV Miscellaneous Supplies 10 ml @ 10 mls/hr Q8H IV 07/12/19 08:45 07/12/19 09:07 DC Vancomycin HCl 750 mg/IV Miscellaneous Supplies 1 each/ Dextrose 275 ml @ 275 mls/hr Q12H IV 02/12/19 02:30 02/12/19 05:32 DC Vancomycin HCl 750 mg/IV Miscellaneous Supplies 1 each/ Dextrose 275 ml @ 275 mls/hr Q24H IV 04/29/19 16:00 04/30/19 12:06 DC 04/29/19 16:50 Vancomycin HCl 750 mg/IV Miscellaneous Supplies 1 each/ Dextrose 275 ml @ 275 mls/hr Q24H IV 07/16/19 10:00 07/19/19 09:32 DC 07/18/19 09:57 Vancomycin HCl 750 mg/IV Miscellaneous Supplies 1 each/ Dextrose 275 ml @ 275 mls/hr Q24H IV 07/27/19 09:00 07/27/19 13:01 DC 07/27/19 10:21 Vancomycin HCl 750 mg/IV Miscellaneous Supplies 1 each/ Dextrose 275 ml @ 275 mls/hr Q36H IV 07/20/19 19:00 07/20/19 14:57 DC Vancomycin HCl 1000 mg/IV Miscellaneous Supplies 1 each/ Dextrose 270 ml @ 270 mls/hr Q18H IV 02/12/19 06:00 02/15/19 06:02 DC 02/14/19 11:20 Vancomycin HCl 1000 mg/IV Miscellaneous Supplies 1 each/ Dextrose 270 ml @ 270 mls/hr Q24H IV 07/13/19 07:00 07/16/19 06:45 DC 07/15/19 07:06 Vancomycin HCl 1000 mg/IV Miscellaneous Supplies 1 each/ Dextrose 270 ml @ 270 mls/hr Q24H IV 02/15/19 12:00 02/15/19 09:27 DC Vitamin D (Vitamin D) 1,000 units QPM PO 02/12/19 21:00 08/02/19 21:01 Allergies Coded Allergies: No Known Allergies (Unverified , 12/09/18) Radha Delgado MD August 03, 2019 20:57
[2019-08-03] MEDS: TAMSULOSIN 0.4 MG CAP PO SCH (21:28)
[2019-08-03] MEDS: CYANOCOBALAMIN 500 MCG TAB PO SCH (21:28)
[2019-08-03] MEDS: DONEPEZIL 5 MG TAB PO SCH (21:28)
[2019-08-03] MEDS: VITAMIN D 1,000 INTERNATIONAL UNITS TABLET PO SCH (21:28)
[2019-08-03 22:00] VITALS: BP 124/67
[2019-08-04] MEDS: PIPERACILLIN/TAZOBACTAM SOD 2.25 GM in D5W MINI-BAG PLUS 50 ML IV SCH (05:19)
[2019-08-04] MEDS: HEPARIN SOD (PORCINE) 5000UNITS/ML VIAL (J1644 PER 1000UNITS) SQ SCH ×4 (05:20→21:00)
[2019-08-04 06:00] VITALS: BP 143/65
--- NOTE | 2019-08-04 07:21 | IPN ---
DATE: 08/02/2019 Cristian is doing better. Cristian had a good morning. Currently, he is in bed resting. His wound dressing was changed this morning and according to his nurse the wound looks great. There is decrease in size and depath. There is no purulence or surrounding erythema. He has had mild cough. No fever or chills. No nausea, vomiting or diarrhea. LABORATORY DATA: White count of 7.5, hemoglobin 9.3, hematocrit 28.7, platelets 247. Sodium 139, potassium 3.5, chloride 107, bicarb 26, BUN 21, creatinine 1.53, glucose 112, calcium 8, AST 10, ALT 8, alkaline phosphatase 46, albumin 1.8. IMPRESSION: 1. Acute osteomyelitis of the right foot. On IV Zosyn currently. Culture positive for Enterococcus faecalis. The patient will finish IV antibiotics for a total of 6 weeks with end of treatment planned for August 22. 2. Possible aspiration pneumonia. On IV Zosyn. Will finish 7 days of broad-spectrum antibiotics tomorrow and he should be switched back to ampicillin 2 grams every 6 hours tomorrow. PLAN: Switch to IV ampicillin tomorrow . Add CRP to labs.
[2019-08-04] MEDS: VALPROIC ACID 250MG/5ML SOL ORAL SYRINGE *DRAW UP EXACT DOSE PO SCH ×2 (09:29→20:59)
[2019-08-04] MEDS: NYSTATIN 100,000 UNITS/GM TOPICAL PWD 15 GM TOP SCH ×2 (09:29→21:00)
[2019-08-04] MEDS: CETIRIZINE (ZyrTEC) 10 MG TAB PO SCH (09:29)
[2019-08-04 09:56] LABS: HEMATOCRIT 31.4 % (42.0-52.0); HEMOGLOBIN 10.4 g/dl (13.5-17.5); MEAN CORPUSCULAR HEMOGLOBIN 31.6 pg (27.0-33.0); MEAN CORPUSCULAR HGB CONC 33.1 g/dl (32.0-36.5); MEAN CORPUSCULAR VOLUME 95.4 fl (80.0-96.0); PLATELET COUNT, AUTOMATED 321 10^3/uL (150-450); RED BLOOD COUNT 3.29 10^6/uL (4.30-6.10); WHITE BLOOD COUNT 9.1 10^3/uL (4.0-10.0)
[2019-08-04 10:11] LABS: BILIRUBIN,TOTAL 0.3 MG/DL (0.2-1.0); CALCIUM LEVEL 8.5 MG/DL (8.8-10.2); CREATININE FOR GFR 1.44 MG/DL (0.70-1.30); GLOMERULAR FILTRATION RATE 49.6 (>35); POTASSIUM SERUM 4.1 MEQ/L (3.5-5.1); TOTAL PROTEIN 6.7 GM/DL (6.4-8.2)
[2019-08-04] MEDS: AMPICILLIN SOD 2 GM in D5W MINI-BAG PLUS 100 ML IV SCH ×2 (12:18→17:57)
[2019-08-04 14:00] VITALS: BP 143/68
--- NOTE | 2019-08-04 20:43 | IPNPDOC ---
Date Seen The patient was seen on 08/04/19. Progress Note SUBJECTIVE: Awake with no complaints. Denies SOB, chest pain. OBJECTIVE: VS: Please see below PHYSICAL EXAMINATION: CONSTITUTIONAL: Resting in bed. EYES: PERRLA, EOM intact HENT, MOUTH: Normocephalic, atraumatic, moist mucous membranes NECK: SUPPLE, no JVD, no lymphadenopathy, no carotid bruit CV: Regular rate and rhythm, S1S2 normal, no murmurs/rubs/gallops RESPIRATORY: mild crackles in LLL, no rales/rhonchi/wheezes GI: BS positive in 4 quadrants, soft, nontender, nondistended, no rebound or guarding, no organomegaly : Deferred MUSCULOSKELETAL: Warm extremities, no mottling bilaterally. Area of amputation appears clean, nonsuppurative, no foul smell, healing scabbed area clean. Contracted lower ext bilaterally. No cyanosis, clubbing, swelling, joint deformity, extremity edema INTEGUMENTARY: Intact, no rashes, no lesions, no erythema NEUROLOGIC: Cranial Nerves II-XII are intact, no focal deficits CURRENT MEDICATIONS: Please see below LABORATORY DATA: Please see below IMAGING: No new imaging. 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 PLAN: (1) HCAP (healthcare-associated pneumonia). IV zosyn completed. WBC wnl. (2) Acute kidney injury. Improving slowly, Cr 1.44. F/u daily labs. Avoid nephrotoxic meds. (3) Distal dried gangrene, with recent third metatarsal head excision and wound debridement, excisional type, including subcutaneous tissue, tendon and bone 07/10/19. 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 Positive enterococcus and wound cultures on ampicillin as per sensitivities for chronic osteomyelitis. Pre ssure ulcers in bilateral heels. Boots are in place. The patient is Pravin lift and turn every hour. Wound care. Patient will eventually need below-knee amputation at some point Awaiting fdc placement. C/w Ampicillin 2 gm Q6 hrs until 08/23/19. (4) BPH, chronic. Continue present medications (5) Dementia, chronic. Continue present medications (6) HTN, chronic. Continue present medications (7) DVT px- Enoxaparin. DISPOSITION: C/w treatment above. Awaiting placement to SNF. Podiatry and ID following. VS, I&O, 24H, Fishbone Vital Signs/I&O Vital Signs Date Time Temp Pulse Resp B/P (MAP) Pulse Ox O2 Delivery O2 Flow Rate FiO2 08/04/19 14:00 98.2 52 16 143/68 (93) 97 Room Air I&O- Last 24 Hours up to 6 AM 08/04/19 06:00 Intake Total 490 ml Output Total 0 ml Balance 490 ml Laboratory Data 24H LABS Laboratory Tests 2 08/04/19 09:19: Anion Gap 6L, Glomerular Filtration Rate 49.6, Calcium Level 8.5L, Total Bilirubin 0.3, Aspartate Amino Transf (AST/SGOT) 13, Alanine Aminotransferase (ALT/SGPT) 11L, Alkaline Phosphatase 54, Total Protein 6.7, Albumin 2.0L, Albumin/Globulin Ratio 0.43L 08/04/19 09:20: Nucleated Red Blood Cells % (auto) 0.0 CBC/BMP Laboratory Tests 08/04/19 09:19 08/04/19 09:20 Microbiology Microbiology 07/28/19 Gram Stain - Final, Complete 07/28/19 Sputum Culture - Final, Complete Yeast Like Organism Current Medications Current Medications Medications (Trade) Dose Ordered Sig/Hubert Route PRN Reason Start Time Stop Time Status Last Admin Dose Admin Acetaminophen (Tylenol Tab) 650 mg Q4H PRN PO PAIN OR FEVER 02/12/19 02:30 07/23/19 21:08 Amlodipine Besylate (Norvasc) 2.5 mg BID PO 07/12/19 02:30 07/12/19 10:15 DC 07/12/19 08:17 Amlodipine Besylate (Norvasc) 5 mg BID PO 02/21/19 09:00 02/21/19 08:44 DC Amlodipine Besylate (Norvasc) 5 mg DAILY PO 05/10/19 09:00 05/10/19 09:32 DC Amlodipine Besylate (Norvasc) 5 mg QHS PO 04/20/19 21:00 04/29/19 14:56 DC 04/28/19 20:47 Amlodipine Besylate (Norvasc) 10 mg DAILY PO 05/03/19 09:00 05/09/19 09:24 DC 05/07/19 08:07 Amlodipine Besylate (Norvasc) 10 mg DAILY PO 02/12/19 09:00 02/13/19 09:42 DC 02/13/19 08:52 Amlodipine Besylate (Norvasc) 10 mg DAILY PO 02/13/19 09:00 02/13/19 09:45 DC Amlodipine Besylate (Norvasc) 10 mg DAILY PO 02/14/19 09:00 02/21/19 06:46 DC 02/19/19 08:33 Amlodipine Besylate (Norvasc) 10 mg QHS PO 02/21/19 21:00 04/20/19 15:21 DC 04/19/19 20:12 Amoxicillin/ Clavulanate Potassium (Augmentin) 500 mg BID PO 05/01/19 10:00 05/09/19 07:52 DC 05/08/19 19:47 Amoxicillin/ Clavulanate Potassium (Augmentin) 500 mg BID PO 03/07/19 21:00 03/12/19 10:33 DC 03/12/19 09:04 Amoxicillin/ Clavulanate Potassium (Augmentin) 875 mg BID PO 05/01/19 21:00 UNV Amoxicillin/ Clavulanate Potassium (Augmentin) 875 mg BID PO 02/15/19 09:00 02/22/19 08:59 DC 02/21/19 20:29 Ampicillin Sodium 2 gm/Dextrose 100 ml @ 200 mls/hr Q6H IV 07/20/19 17:00 07/27/19 13:44 DC 07/27/19 04:31 Ampicillin Sodium 2 gm/Dextrose 100 ml @ 200 mls/hr Q6H IV 07/27/19 14:00 07/28/19 10:39 DC 07/28/19 09:24 Ampicillin Sodium 2 gm/Dextrose 100 ml @ 200 mls/hr Q6H IV 08/04/19 12:00 08/23/19 11:59 08/04/19 17:57 Ampicillin Sodium/ Sulbactam Sodium 1.5 gm/Dextrose 50 ml @ 100 mls/hr Q6H IV 02/12/19 05:00 02/15/19 09:27 DC 02/15/19 05:19 Ampicillin Sodium/ Sulbactam Sodium 3 gm/Dextrose 100 ml @ 200 mls/hr Q12H IV 03/06/19 23:00 03/07/19 17:17 DC 03/07/19 11:39 Atenolol (Tenormin) 12.5 mg BID PO 02/13/19 09:00 02/15/19 14:32 DC 02/14/19 20:57 Azithromycin (Zithromax Tab) 500 mg DAILY PO 03/07/19 09:00 03/13/19 14:18 DC 03/13/19 10:03 Azithromycin 500 mg/IV Miscellaneous Supplies 1 each/ Dextrose 255 ml @ 255 mls/hr Q24H IV 03/06/19 00:00 03/07/19 17:17 DC 03/07/19 00:44 Bisacodyl (Dulcolax Suppository) 10 mg Q2DP PRN [place] CONSTIPATION 02/12/19 18:45 02/13/19 14:23 Cephalexin Monohydrate (Keflex) 500 mg BID PO 05/25/19 09:00 06/07/19 23:59 DC 06/07/19 21:47 Cephalexin Monohydrate (Keflex) 500 mg Q12H PO 06/29/19 09:00 07/08/19 08:59 DC 07/07/19 20:39 Cetirizine HCl (ZyrTEC) 10 mg DAILY PO 02/14/19 09:00 08/04/19 09:29 Cyanocobalamin (Vitamin B12) 500 mcg QHS PO 02/12/19 21:00 08/03/19 21:28 Dextrose/Lactated Ringer's 1,000 ml @ 40 mls/hr Q24H IV 02/12/19 02:30 02/12/19 17:11 DC 02/12/19 03:12 Divalproex Sodium (Depakote Er) 500 mg QHS PO 02/12/19 21:00 08/01/19 13:32 DC 07/31/19 21:04 Docusate Sodium (Colace) 100 mg Q12HP PRN PO CONSTIPATION 05/03/19 11:45 07/19/19 20:51 Donepezil HCl (AriCEPT) 10 mg QHS PO 02/12/19 21:00 08/03/19 21:28 Enoxaparin Sodium (Lovenox) 30 mg DAILY SC 02/15/19 09:00 07/25/19 08:03 DC 07/24/19 08:46 Furosemide (LASIX injection) 40 mg DAILY IV 07/26/19 09:00 07/27/19 13:01 DC 07/27/19 10:21 Guaifenesin (Mucinex Tab Er) 600 mg BID PO 07/25/19 21:00 07/25/19 17:37 DC Guaifenesin (Robitussin) 10 ml Q4HP PRN PO COUGH 07/25/19 17:45 07/25/19 18:41 Heparin Sodium (Porcine) (Heparin) 5,000 units Q8H SQ 07/25/19 14:00 08/04/19 05:20 Home Med (Med Rec Complete!) ASDIRECTED XX 02/12/19 04:00 02/12/19 04:05 DC Hydralazine HCl (Apresoline) 10 mg Q4H IV 02/12/19 14:00 02/13/19 07:26 DC 02/13/19 05:23 Hydralazine HCl (Apresoline) 20 mg Q6H PO 02/12/19 12:00 02/12/19 13:20 DC Hydralazine HCl (Apresoline) 25 mg QID PO 02/13/19 09:00 02/17/19 12:49 DC 02/17/19 11:08 Isosorbide Dinitrate (Isordil) 20 mg Q6H PO 02/13/19 18:00 02/17/19 12:49 DC 02/17/19 11:06 Labetalol HCl (Normodyne, Trandate) 2 mg Q6HP PRN IV BP > 160/100 02/12/19 03:45 02/12/19 12:21 DC Lactated Ringer's 1,000 ml @ 75 mls/hr [id number] IV 04/28/19 08:15 04/29/19 08:06 DC 04/28/19 20:48 Lactated Ringer's 1,000 ml @ 75 mls/hr [id number] IV 04/29/19 14:30 05/01/19 07:51 DC 04/30/19 19:00 Levofloxacin (Levaquin) 250 mg Q24H PO 05/30/19 22:00 06/12/19 23:59 DC 06/12/19 21:39 Levofloxacin (Levaquin) 750 mg Q48H PO 07/01/19 06:00 07/09/19 10:00 DC 07/09/19 10:07 Levofloxacin (Levaquin) 750 mg Q48H PO 07/26/19 18:00 07/27/19 13:05 DC 07/26/19 19:46 Lisinopril (Prinivil) 5 mg DAILY PO 07/12/19 02:30 07/12/19 10:15 DC 07/12/19 02:57 Lisinopril (Prinivil) 5 mg QHS PO 07/15/19 21:00 07/25/19 08:03 DC 07/24/19 22:18 Lisinopril (Prinivil) 5 mg QHS PO 02/21/19 21:00 04/29/19 14:56 DC 04/28/19 20:46 Lisinopril (Prinivil) 10 mg DAILY PO 05/03/19 09:00 05/09/19 09:24 DC 05/07/19 08:07 Lisinopril (Prinivil) 10 mg QHS PO 05/09/19 21:00 07/09/19 09:01 DC 07/08/19 21:36 Lisinopril (Prinivil) 10 mg QHS PO 02/17/19 21:00 02/21/19 06:43 DC 02/20/19 20:31 Lisinopril (Prinivil) 10 mg QHS PO 02/21/19 21:00 02/21/19 08:44 DC Lisinopril (Prinivil) 20 mg QHS PO 02/21/19 21:00 02/21/19 06:46 DC Magnesium Hydroxide (Milk Of Magnesia) 30 ml DAILYPRN PRN PO CONSTIPATION 02/12/19 19:00 02/13/19 08:57 Metronidazole (Flagyl) 500 mg Q8H PO 05/01/19 14:00 05/03/19 10:32 DC 05/03/19 06:56 Miscellaneous (Unresolved Clarification Entry) SEE LABEL COMMENTS DAILY XX 04/15/19 09:00 Cancel Miscellaneous (Unresolved Clarification Entry) SEE LABEL COMMENTS DAILY XX 04/21/19 09:00 04/21/19 16:34 DC Miscellaneous (Unresolved Clarification Entry) SEE LABEL COMMENTS DAILY XX 05/17/19 09:00 05/17/19 11:43 DC Miscellaneous (Unresolved Clarification Entry) SEE LABEL COMMENTS DAILY XX 05/23/19 09:00 05/24/19 12:03 DC Miscellaneous (Unresolved Clarification Entry) SEE LABEL COMMENTS DAILY XX 05/05/19 09:00 05/05/19 11:26 DC Miscellaneous (Unresolved Clarification Entry) SEE LABEL COMMENTS DAILY XX 06/18/19 09:00 06/20/19 08:54 DC Miscellaneous (Unresolved Clarification Entry) SEE LABEL COMMENTS DAILY XX 06/25/19 09:00 06/25/19 11:30 DC Miscellaneous (Unresolved Clarification Entry) SEE LABEL COMMENTS DAILY XX 07/11/19 09:00 07/11/19 11:57 DC Miscellaneous (Unresolved Clarification Entry) SEE LABEL COMMENTS DAILY XX 02/21/19 09:00 02/22/19 06:40 DC Miscellaneous (Unresolved Clarification Entry) SEE LABEL COMMENTS DAILY XX 02/22/19 09:00 02/22/19 12:30 DC Miscellaneous (Unresolved Clarification Entry) SEE LABEL COMMENTS DAILY XX 02/26/19 09:00 02/26/19 12:38 DC Miscellaneous (Unresolved Clarification Entry) SEE LABEL COMMENTS DAILY XX 03/15/19 09:00 03/15/19 10:31 DC Miscellaneous (Unresolved Clarification Entry) SEE LABEL COMMENTS DAILY XX 03/25/19 09:00 03/25/19 12:55 DC Nitroglycerin (Nitrobid 2%) HOLD FOR SBP<140 1 INCH Q4H TOP 02/12/19 13:00 02/13/19 09:28 DC 02/13/19 08:53 Nystatin (Mycostatin Powder, Nystop) groin BID TOP 06/10/19 09:00 08/04/19 09:29 Piperacillin Sod/ Tazobactam Sod 2.25 gm/Dextrose 50 ml @ 100 mls/hr Q6H IV 07/09/19 14:00 07/12/19 08:42 DC 07/12/19 08:16 Piperacillin Sod/ Tazobactam Sod 2.25 gm/Dextrose 50 ml @ 100 mls/hr Q6H IV 07/28/19 12:00 08/04/19 08:00 DC 08/04/19 05:19 Piperacillin Sod/ Tazobactam Sod 3.375 gm/Dextrose 50 ml @ 50 mls/hr Q6H IV 04/29/19 15:00 05/01/19 07:51 DC 05/01/19 03:19 Piperacillin Sod/ Tazobactam Sod 3.375 gm/Dextrose 50 ml @ 50 mls/hr Q6H IV 07/09/19 14:00 07/09/19 13:52 DC Piperacillin Sod/ Tazobactam Sod 3.375 gm/Dextrose 50 ml @ 50 mls/hr Q6H IV 07/28/19 10:45 07/28/19 10:45 DC Sodium Biphosphate/ Sodium Phosphate (Fleet Enema) 1 ea Q3DP PRN [place] CONSTIPATION 02/12/19 19:00 Sodium Chloride 1,000 ml @ 60 mls/hr [id number] IV 07/25/19 08:15 07/26/19 08:40 DC 07/25/19 16:28 Sodium Chloride 1,000 ml @ 80 mls/hr [id number] IV 07/09/19 09:00 07/11/19 14:05 DC 07/11/19 08:49 Sodium Chloride 1,000 ml @ 80 mls/hr [id number] IV 07/24/19 09:00 07/25/19 05:45 DC 07/24/19 22:17 Sodium Chloride ([place] Nasal [place]) 2 spray Q2HP PRN NA NASAL DRYNESS 02/13/19 09:30 Sodium Chloride ([place] Nasal [place]) 2 spray TID NA 02/13/19 09:00 03/18/19 09:01 DC 03/17/19 21:33 Tamsulosin HCl (Flomax) 0.4 mg QHS PO 02/12/19 21:00 08/03/19 21:28 Trazodone HCl (Desyrel) 25 mg QHSP PRN PO INSOMNIA 02/21/19 06:45 04/23/19 01:42 Valproic Acid (Depakene Solution) 250 mg BID PO 08/01/19 21:00 08/04/19 09:29 Vancomycin HCl 500 mg/Dextrose 110 ml @ 110 mls/hr Q24H IV 07/19/19 12:00 07/20/19 12:22 DC 07/19/19 12:13 Vancomycin HCl 500 mg/IV Miscellaneous Supplies 10 ml @ 10 mls/hr Q8H IV 07/12/19 08:45 07/12/19 09:07 DC Vancomycin HCl 750 mg/IV Miscellaneous Supplies 1 each/ Dextrose 275 ml @ 275 mls/hr Q12H IV 02/12/19 02:30 02/12/19 05:32 DC Vancomycin HCl 750 mg/IV Miscellaneous Supplies 1 each/ Dextrose 275 ml @ 275 mls/hr Q24H IV 04/29/19 16:00 04/30/19 12:06 DC 04/29/19 16:50 Vancomycin HCl 750 mg/IV Miscellaneous Supplies 1 each/ Dextrose 275 ml @ 275 mls/hr Q24H IV 07/16/19 10:00 07/19/19 09:32 DC 07/18/19 09:57 Vancomycin HCl 750 mg/IV Miscellaneous Supplies 1 each/ Dextrose 275 ml @ 275 mls/hr Q24H IV 07/27/19 09:00 07/27/19 13:01 DC 07/27/19 10:21 Vancomycin HCl 750 mg/IV Miscellaneous Supplies 1 each/ Dextrose 275 ml @ 275 mls/hr Q36H IV 07/20/19 19:00 07/20/19 14:57 DC Vancomycin HCl 1000 mg/IV Miscellaneous Supplies 1 each/ Dextrose 270 ml @ 270 mls/hr Q18H IV 02/12/19 06:00 02/15/19 06:02 DC 02/14/19 11:20 Vancomycin HCl 1000 mg/IV Miscellaneous Supplies 1 each/ Dextrose 270 ml @ 270 mls/hr Q24H IV 07/13/19 07:00 07/16/19 06:45 DC 07/15/19 07:06 Vancomycin HCl 1000 mg/IV Miscellaneous Supplies 1 each/ Dextrose 270 ml @ 270 mls/hr Q24H IV 02/15/19 12:00 02/15/19 09:27 DC Vitamin D (Vitamin D) 1,000 units QPM PO 02/12/19 21:00 08/03/19 21:28 Allergies Coded Allergies: No Known Allergies (Unverified , 12/09/18) Radha Delgado MD August 04, 2019 20:43
[2019-08-04] MEDS: VITAMIN D 1,000 INTERNATIONAL UNITS TABLET PO SCH (20:59)
[2019-08-04] MEDS: DONEPEZIL 5 MG TAB PO SCH (20:59)
[2019-08-04] MEDS: TAMSULOSIN 0.4 MG CAP PO SCH (20:59)
[2019-08-04] MEDS: CYANOCOBALAMIN 500 MCG TAB PO SCH (20:59)
[2019-08-04 22:00] VITALS: BP 159/76
[2019-08-05] MEDS: AMPICILLIN SOD 2 GM in D5W MINI-BAG PLUS 100 ML IV SCH ×5 (00:13→23:12)
[2019-08-05 02:00] VITALS: BP 157/75
[2019-08-05] MEDS: HEPARIN SOD (PORCINE) 5000UNITS/ML VIAL (J1644 PER 1000UNITS) SQ SCH ×3 (05:52→20:51)
[2019-08-05 05:56] LABS: HEMATOCRIT 29.5 % (42.0-52.0); HEMOGLOBIN 9.5 g/dl (13.5-17.5); MEAN CORPUSCULAR HEMOGLOBIN 30.6 pg (27.0-33.0); MEAN CORPUSCULAR HGB CONC 32.2 g/dl (32.0-36.5); MEAN CORPUSCULAR VOLUME 95.2 fl (80.0-96.0); PLATELET COUNT, AUTOMATED 305 10^3/uL (150-450); WHITE BLOOD COUNT 7.7 10^3/uL (4.0-10.0)
[2019-08-05 06:00] VITALS: BP 138/78
[2019-08-05 06:13] LABS: ALBUMIN 1.8 GM/DL (3.2-5.2); BILIRUBIN,TOTAL 0.2 MG/DL (0.2-1.0); C REACTIVE PROTEIN QUANTITATIV 3.9 MG/DL (0.00-0.30); CREATININE FOR GFR 1.49 MG/DL (0.70-1.30); GLOMERULAR FILTRATION RATE 47.7 (>35); POTASSIUM SERUM 3.9 MEQ/L (3.5-5.1); TOTAL PROTEIN 6.4 GM/DL (6.4-8.2)
[2019-08-05] MEDS: VALPROIC ACID 250MG/5ML SOL ORAL SYRINGE *DRAW UP EXACT DOSE PO SCH ×2 (08:06→20:51)
[2019-08-05] MEDS: CETIRIZINE (ZyrTEC) 10 MG TAB PO SCH (08:06)
[2019-08-05] MEDS: NYSTATIN 100,000 UNITS/GM TOPICAL PWD 15 GM TOP SCH ×2 (08:07→20:51)
[2019-08-05 14:00] VITALS: BP 126/66
--- NOTE | 2019-08-05 19:05 | IPNPDOC ---
Date Seen The patient was seen on 08/05/19. Progress Note SUBJECTIVE: Awake with no complaints, sitting up in bedside chair. Denies SOB, chest pain. OBJECTIVE: VS: Please see below PHYSICAL EXAMINATION: CONSTITUTIONAL: Resting in chair, pleasantly confused. EYES: PERRLA, EOM intact HENT, MOUTH: Normocephalic, atraumatic, moist mucous membranes NECK: SUPPLE, no JVD, no lymphadenopathy, no carotid bruit CV: Regular rate and rhythm, S1S2 normal, no murmurs/rubs/gallops RESPIRATORY: mild crackles in LLL, no rales/rhonchi/wheezes GI: BS positive in 4 quadrants, soft, nontender, nondistended, no rebound or guarding, no organomegaly : Deferred MUSCULOSKELETAL: Warm extremities, no mottling bilaterally. Area of amputation appears clean, nonsuppurative, no foul smell, healing scabbed area clean. Contracted lower ext bilaterally. No cyanosis, clubbing, swelling, joint deformity, extremity edema INTEGUMENTARY: Intact, no rashes, no lesions, no erythema NEUROLOGIC: Cranial Nerves II-XII are intact, no focal deficits CURRENT MEDICATIONS: Please see below LABORATORY DATA: Please see below IMAGING: No new imaging. 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 PLAN: (1) Acute kidney injury. Improving slowly, Cr 1.49. F/u daily labs. Avoid nephrotoxic meds. (2) Distal dried gangrene, with recent third metatarsal head excision and wound debridement, excisional type, including subcutaneous tissue, tendon and bone 07/10/19. 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 Not vascular candidate for intervention/surgery. The patient is Pravin lift and turn every hour. Wound care. Awaiting long term placement. Podiatry, ID following. (3) Chronic osteomyelitis. CRP elevated, WBC wnl. Positive enterococcus and wound cultures on ampicillin as per sensitivities. Pressure ulcers in bilateral heels. Boots are in place. Treatment as above under problem #2. C/w Ampicillin 2 gm Q6 hrs until 08/23/19. ID following. (4) BPH, chronic. Continue present medications (5) Dementia, chronic. Continue present medications (6) HTN, chronic. Continue present medications (7) DVT px- Enoxaparin. DISPOSITION: C/w treatment above. Awaiting placement to SNF. Podiatry and ID following. VS, I&O, 24H, Fishbone Vital Signs/I&O Vital Signs Date Time Temp Pulse Resp B/P (MAP) Pulse Ox O2 Delivery O2 Flow Rate FiO2 08/05/19 14:00 98.1 73 17 126/66 (86) 98 Room Air I&O- Last 24 Hours up to 6 AM 08/05/19 05:59 Intake Total 480 ml Output Total 300 ml Balance 180 ml Laboratory Data 24H LABS Laboratory Tests 2 08/05/19 05:28: Nucleated Red Blood Cells % (auto) 0.0, Anion Gap 7L, Glomerular Filtration Rate 47.7, Calcium Level 8.0L, Total Bilirubin 0.2, Aspartate Amino Transf (AST/SGOT) 12, Alanine Aminotransferase (ALT/SGPT) 9L, Alkaline Phosphatase 61, C-Reactive Protein, Quantitative 3.90H, Total Protein 6.4, Albumin 1.8L, Albumin/Globulin Ratio 0.39L CBC/BMP Laboratory Tests 08/05/19 05:28 Microbiology Microbiology 07/28/19 Gram Stain - Final, Complete 07/28/19 Sputum Culture - Final, Complete Yeast Like Organism Current Medications Current Medications Medications (Trade) Dose Ordered Sig/Hubert Route PRN Reason Start Time Stop Time Status Last Admin Dose Admin Acetaminophen (Tylenol Tab) 650 mg Q4H PRN PO PAIN OR FEVER 02/12/19 02:30 07/23/19 21:08 Amlodipine Besylate (Norvasc) 2.5 mg BID PO 07/12/19 02:30 07/12/19 10:15 DC 07/12/19 08:17 Amlodipine Besylate (Norvasc) 5 mg BID PO 02/21/19 09:00 02/21/19 08:44 DC Amlodipine Besylate (Norvasc) 5 mg DAILY PO 05/10/19 09:00 05/10/19 09:32 DC Amlodipine Besylate (Norvasc) 5 mg QHS PO 04/20/19 21:00 04/29/19 14:56 DC 04/28/19 20:47 Amlodipine Besylate (Norvasc) 10 mg DAILY PO 05/03/19 09:00 05/09/19 09:24 DC 05/07/19 08:07 Amlodipine Besylate (Norvasc) 10 mg DAILY PO 02/12/19 09:00 02/13/19 09:42 DC 02/13/19 08:52 Amlodipine Besylate (Norvasc) 10 mg DAILY PO 02/13/19 09:00 02/13/19 09:45 DC Amlodipine Besylate (Norvasc) 10 mg DAILY PO 02/14/19 09:00 02/21/19 06:46 DC 02/19/19 08:33 Amlodipine Besylate (Norvasc) 10 mg QHS PO 02/21/19 21:00 04/20/19 15:21 DC 04/19/19 20:12 Amoxicillin/ Clavulanate Potassium (Augmentin) 500 mg BID PO 05/01/19 10:00 05/09/19 07:52 DC 05/08/19 19:47 Amoxicillin/ Clavulanate Potassium (Augmentin) 500 mg BID PO 03/07/19 21:00 03/12/19 10:33 DC 03/12/19 09:04 Amoxicillin/ Clavulanate Potassium (Augmentin) 875 mg BID PO 05/01/19 21:00 UNV Amoxicillin/ Clavulanate Potassium (Augmentin) 875 mg BID PO 02/15/19 09:00 02/22/19 08:59 DC 02/21/19 20:29 Ampicillin Sodium 2 gm/Dextrose 100 ml @ 200 mls/hr Q6H IV 07/20/19 17:00 07/27/19 13:44 DC 07/27/19 04:31 Ampicillin Sodium 2 gm/Dextrose 100 ml @ 200 mls/hr Q6H IV 07/27/19 14:00 07/28/19 10:39 DC 07/28/19 09:24 Ampicillin Sodium 2 gm/Dextrose 100 ml @ 200 mls/hr Q6H IV 08/04/19 12:00 08/23/19 11:59 08/05/19 17:06 Ampicillin Sodium/ Sulbactam Sodium 1.5 gm/Dextrose 50 ml @ 100 mls/hr Q6H IV 02/12/19 05:00 02/15/19 09:27 DC 02/15/19 05:19 Ampicillin Sodium/ Sulbactam Sodium 3 gm/Dextrose 100 ml @ 200 mls/hr Q12H IV 03/06/19 23:00 03/07/19 17:17 DC 03/07/19 11:39 Atenolol (Tenormin) 12.5 mg BID PO 02/13/19 09:00 02/15/19 14:32 DC 02/14/19 20:57 Azithromycin (Zithromax Tab) 500 mg DAILY PO 03/07/19 09:00 03/13/19 14:18 DC 03/13/19 10:03 Azithromycin 500 mg/IV Miscellaneous Supplies 1 each/ Dextrose 255 ml @ 255 mls/hr Q24H IV 03/06/19 00:00 03/07/19 17:17 DC 03/07/19 00:44 Bisacodyl (Dulcolax Suppository) 10 mg Q2DP PRN ME CONSTIPATION 02/12/19 18:45 02/13/19 14:23 Cephalexin Monohydrate (Keflex) 500 mg BID PO 05/25/19 09:00 06/07/19 23:59 DC 06/07/19 21:47 Cephalexin Monohydrate (Keflex) 500 mg Q12H PO 06/29/19 09:00 07/08/19 08:59 DC 07/07/19 20:39 Cetirizine HCl (ZyrTEC) 10 mg DAILY PO 02/14/19 09:00 08/05/19 08:06 Cyanocobalamin (Vitamin B12) 500 mcg QHS PO 02/12/19 21:00 08/04/19 20:59 Dextrose/Lactated Ringer's 1,000 ml @ 40 mls/hr Q24H IV 02/12/19 02:30 02/12/19 17:11 DC 02/12/19 03:12 Divalproex Sodium (Depakote Er) 500 mg QHS PO 02/12/19 21:00 08/01/19 13:32 DC 07/31/19 21:04 Docusate Sodium (Colace) 100 mg Q12HP PRN PO CONSTIPATION 05/03/19 11:45 07/19/19 20:51 Donepezil HCl (AriCEPT) 10 mg QHS PO 02/12/19 21:00 08/04/19 20:59 Enoxaparin Sodium (Lovenox) 30 mg DAILY SC 02/15/19 09:00 07/25/19 08:03 DC 07/24/19 08:46 Furosemide (LASIX injection) 40 mg DAILY IV 07/26/19 09:00 07/27/19 13:01 DC 07/27/19 10:21 Guaifenesin (Mucinex Tab Er) 600 mg BID PO 07/25/19 21:00 07/25/19 17:37 DC Guaifenesin (Robitussin) 10 ml Q4HP PRN PO COUGH 07/25/19 17:45 07/25/19 18:41 Heparin Sodium (Porcine) (Heparin) 5,000 units Q8H SQ 07/25/19 14:00 08/05/19 13:48 Home Med (Med Rec Complete!) ASDIRECTED XX 02/12/19 04:00 02/12/19 04:05 DC Hydralazine HCl (Apresoline) 10 mg Q4H IV 02/12/19 14:00 02/13/19 07:26 DC 02/13/19 05:23 Hydralazine HCl (Apresoline) 20 mg Q6H PO 02/12/19 12:00 02/12/19 13:20 DC Hydralazine HCl (Apresoline) 25 mg QID PO 02/13/19 09:00 02/17/19 12:49 DC 02/17/19 11:08 Isosorbide Dinitrate (Isordil) 20 mg Q6H PO 02/13/19 18:00 02/17/19 12:49 DC 02/17/19 11:06 Labetalol HCl (Normodyne, Trandate) 2 mg Q6HP PRN IV BP > 160/100 02/12/19 03:45 02/12/19 12:21 DC Lactated Ringer's 1,000 ml @ 75 mls/hr [id number] IV 04/28/19 08:15 04/29/19 08:06 DC 04/28/19 20:48 Lactated Ringer's 1,000 ml @ 75 mls/hr [id number] IV 04/29/19 14:30 05/01/19 07:51 DC 04/30/19 19:00 Levofloxacin (Levaquin) 250 mg Q24H PO 05/30/19 22:00 06/12/19 23:59 DC 06/12/19 21:39 Levofloxacin (Levaquin) 750 mg Q48H PO 07/01/19 06:00 07/09/19 10:00 DC 07/09/19 10:07 Levofloxacin (Levaquin) 750 mg Q48H PO 07/26/19 18:00 07/27/19 13:05 DC 07/26/19 19:46 Lisinopril (Prinivil) 5 mg DAILY PO 07/12/19 02:30 07/12/19 10:15 DC 07/12/19 02:57 Lisinopril (Prinivil) 5 mg QHS PO 07/15/19 21:00 07/25/19 08:03 DC 07/24/19 22:18 Lisinopril (Prinivil) 5 mg QHS PO 02/21/19 21:00 04/29/19 14:56 DC 04/28/19 20:46 Lisinopril (Prinivil) 10 mg DAILY PO 05/03/19 09:00 05/09/19 09:24 DC 05/07/19 08:07 Lisinopril (Prinivil) 10 mg QHS PO 05/09/19 21:00 07/09/19 09:01 DC 07/08/19 21:36 Lisinopril (Prinivil) 10 mg QHS PO 02/17/19 21:00 02/21/19 06:43 DC 02/20/19 20:31 Lisinopril (Prinivil) 10 mg QHS PO 02/21/19 21:00 02/21/19 08:44 DC Lisinopril (Prinivil) 20 mg QHS PO 02/21/19 21:00 02/21/19 06:46 DC Magnesium Hydroxide (Milk Of Magnesia) 30 ml DAILYPRN PRN PO CONSTIPATION 02/12/19 19:00 02/13/19 08:57 Metronidazole (Flagyl) 500 mg Q8H PO 05/01/19 14:00 05/03/19 10:32 DC 05/03/19 06:56 Miscellaneous (Unresolved Clarification Entry) SEE LABEL COMMENTS DAILY XX 04/15/19 09:00 Cancel Miscellaneous (Unresolved Clarification Entry) SEE LABEL COMMENTS DAILY XX 04/21/19 09:00 04/21/19 16:34 DC Miscellaneous (Unresolved Clarification Entry) SEE LABEL COMMENTS DAILY XX 05/17/19 09:00 05/17/19 11:43 DC Miscellaneous (Unresolved Clarification Entry) SEE LABEL COMMENTS DAILY XX 05/23/19 09:00 05/24/19 12:03 DC Miscellaneous (Unresolved Clarification Entry) SEE LABEL COMMENTS DAILY XX 05/05/19 09:00 05/05/19 11:26 DC Miscellaneous (Unresolved Clarification Entry) SEE LABEL COMMENTS DAILY XX 06/18/19 09:00 06/20/19 08:54 DC Miscellaneous (Unresolved Clarification Entry) SEE LABEL COMMENTS DAILY XX 06/25/19 09:00 06/25/19 11:30 DC Miscellaneous (Unresolved Clarification Entry) SEE LABEL COMMENTS DAILY XX 07/11/19 09:00 07/11/19 11:57 DC Miscellaneous (Unresolved Clarification Entry) SEE LABEL COMMENTS DAILY XX 02/21/19 09:00 02/22/19 06:40 DC Miscellaneous (Unresolved Clarification Entry) SEE LABEL COMMENTS DAILY XX 02/22/19 09:00 02/22/19 12:30 DC Miscellaneous (Unresolved Clarification Entry) SEE LABEL COMMENTS DAILY XX 02/26/19 09:00 02/26/19 12:38 DC Miscellaneous (Unresolved Clarification Entry) SEE LABEL COMMENTS DAILY XX 03/15/19 09:00 03/15/19 10:31 DC Miscellaneous (Unresolved Clarification Entry) SEE LABEL COMMENTS DAILY XX 03/25/19 09:00 03/25/19 12:55 DC Nitroglycerin (Nitrobid 2%) HOLD FOR SBP<140 1 INCH Q4H TOP 02/12/19 13:00 02/13/19 09:28 DC 02/13/19 08:53 Nystatin (Mycostatin Powder, Nystop) groin BID TOP 06/10/19 09:00 08/05/19 08:07 Piperacillin Sod/ Tazobactam Sod 2.25 gm/Dextrose 50 ml @ 100 mls/hr Q6H IV 07/09/19 14:00 07/12/19 08:42 DC 07/12/19 08:16 Piperacillin Sod/ Tazobactam Sod 2.25 gm/Dextrose 50 ml @ 100 mls/hr Q6H IV 07/28/19 12:00 08/04/19 08:00 DC 08/04/19 05:19 Piperacillin Sod/ Tazobactam Sod 3.375 gm/Dextrose 50 ml @ 50 mls/hr Q6H IV 04/29/19 15:00 05/01/19 07:51 DC 05/01/19 03:19 Piperacillin Sod/ Tazobactam Sod 3.375 gm/Dextrose 50 ml @ 50 mls/hr Q6H IV 07/09/19 14:00 07/09/19 13:52 DC Piperacillin Sod/ Tazobactam Sod 3.375 gm/Dextrose 50 ml @ 50 mls/hr Q6H IV 07/28/19 10:45 07/28/19 10:45 DC Sodium Biphosphate/ Sodium Phosphate (Fleet Enema) 1 ea Q3DP PRN ME CONSTIPATION 02/12/19 19:00 Sodium Chloride 1,000 ml @ 60 mls/hr [id number] IV 07/25/19 08:15 07/26/19 08:40 DC 07/25/19 16:28 Sodium Chloride 1,000 ml @ 80 mls/hr [id number] IV 07/09/19 09:00 07/11/19 14:05 DC 07/11/19 08:49 Sodium Chloride 1,000 ml @ 80 mls/hr [id number] IV 07/24/19 09:00 07/25/19 05:45 DC 07/24/19 22:17 Sodium Chloride ([place] Nasal [place]) 2 spray Q2HP PRN NA NASAL DRYNESS 02/13/19 09:30 Sodium Chloride ([place] Nasal [place]) 2 spray TID NA 02/13/19 09:00 03/18/19 09:01 DC 03/17/19 21:33 Tamsulosin HCl (Flomax) 0.4 mg QHS PO 02/12/19 21:00 08/04/19 20:59 Trazodone HCl (Desyrel) 25 mg QHSP PRN PO INSOMNIA 02/21/19 06:45 04/23/19 01:42 Valproic Acid (Depakene Solution) 250 mg BID PO 08/01/19 21:00 08/05/19 08:06 Vancomycin HCl 500 mg/Dextrose 110 ml @ 110 mls/hr Q24H IV 07/19/19 12:00 07/20/19 12:22 DC 07/19/19 12:13 Vancomycin HCl 500 mg/IV Miscellaneous Supplies 10 ml @ 10 mls/hr Q8H IV 07/12/19 08:45 07/12/19 09:07 DC Vancomycin HCl 750 mg/IV Miscellaneous Supplies 1 each/ Dextrose 275 ml @ 275 mls/hr Q12H IV 02/12/19 02:30 02/12/19 05:32 DC Vancomycin HCl 750 mg/IV Miscellaneous Supplies 1 each/ Dextrose 275 ml @ 275 mls/hr Q24H IV 04/29/19 16:00 04/30/19 12:06 DC 04/29/19 16:50 Vancomycin HCl 750 mg/IV Miscellaneous Supplies 1 each/ Dextrose 275 ml @ 275 mls/hr Q24H IV 07/16/19 10:00 07/19/19 09:32 DC 07/18/19 09:57 Vancomycin HCl 750 mg/IV Miscellaneous Supplies 1 each/ Dextrose 275 ml @ 275 mls/hr Q24H IV 07/27/19 09:00 07/27/19 13:01 DC 07/27/19 10:21 Vancomycin HCl 750 mg/IV Miscellaneous Supplies 1 each/ Dextrose 275 ml @ 275 mls/hr Q36H IV 07/20/19 19:00 07/20/19 14:57 DC Vancomycin HCl 1000 mg/IV Miscellaneous Supplies 1 each/ Dextrose 270 ml @ 270 mls/hr Q18H IV 02/12/19 06:00 02/15/19 06:02 DC 02/14/19 11:20 Vancomycin HCl 1000 mg/IV Miscellaneous Supplies 1 each/ Dextrose 270 ml @ 270 mls/hr Q24H IV 07/13/19 07:00 07/16/19 06:45 DC 07/15/19 07:06 Vancomycin HCl 1000 mg/IV Miscellaneous Supplies 1 each/ Dextrose 270 ml @ 270 mls/hr Q24H IV 02/15/19 12:00 02/15/19 09:27 DC Vitamin D (Vitamin D) 1,000 units QPM PO 02/12/19 21:00 08/04/19 20:59 Allergies Coded Allergies: No Known Allergies (Unverified , 12/09/18) Radha Delgado MD August 05, 2019 19:05
[2019-08-05] MEDS: DONEPEZIL 5 MG TAB PO SCH (20:50)
[2019-08-05] MEDS: TAMSULOSIN 0.4 MG CAP PO SCH (20:50)
[2019-08-05] MEDS: VITAMIN D 1,000 INTERNATIONAL UNITS TABLET PO SCH (20:51)
[2019-08-05] MEDS: CYANOCOBALAMIN 500 MCG TAB PO SCH (20:51)
[2019-08-05 22:00] VITALS: BP 166/88
[2019-08-06] MEDS: HEPARIN SOD (PORCINE) 5000UNITS/ML VIAL (J1644 PER 1000UNITS) SQ SCH ×3 (05:47→22:24)
[2019-08-06] MEDS: AMPICILLIN SOD 2 GM in D5W MINI-BAG PLUS 100 ML IV SCH ×4 (05:47→23:59)
[2019-08-06 06:00] VITALS: BP 144/79
[2019-08-06 06:05] LABS: HEMATOCRIT 27.9 % (42.0-52.0); HEMOGLOBIN 9.1 g/dl (13.5-17.5); MEAN CORPUSCULAR HEMOGLOBIN 31.1 pg (27.0-33.0); MEAN CORPUSCULAR HGB CONC 32.6 g/dl (32.0-36.5); MEAN CORPUSCULAR VOLUME 95.2 fl (80.0-96.0); PLATELET COUNT, AUTOMATED 319 10^3/uL (150-450); RED BLOOD COUNT 2.93 10^6/uL (4.30-6.10); WHITE BLOOD COUNT 7.3 10^3/uL (4.0-10.0)
[2019-08-06 06:39] LABS: ALBUMIN 1.8 GM/DL (3.2-5.2); BILIRUBIN,TOTAL 0.2 MG/DL (0.2-1.0); CALCIUM LEVEL 8.3 MG/DL (8.8-10.2); CREATININE FOR GFR 1.3 MG/DL (0.70-1.30); GLOMERULAR FILTRATION RATE 55.9 (>35); POTASSIUM SERUM 3.9 MEQ/L (3.5-5.1); TOTAL PROTEIN 5.9 GM/DL (6.4-8.2)
[2019-08-06 07:10] LABS: ERYTHROCYTE SEDIMENTATION RATE 81 mm/hr (0-20)
[2019-08-06] MEDS: VALPROIC ACID 250MG/5ML SOL ORAL SYRINGE *DRAW UP EXACT DOSE PO SCH ×2 (10:56→22:22)
[2019-08-06] MEDS: CETIRIZINE (ZyrTEC) 10 MG TAB PO SCH (10:56)
[2019-08-06] MEDS: NYSTATIN 100,000 UNITS/GM TOPICAL PWD 15 GM TOP SCH ×2 (10:57→22:24)
[2019-08-06 14:00] VITALS: BP 134/61
--- NOTE | 2019-08-06 18:21 | IPNPDOC ---
Date Seen The patient was seen on 08/06/19. Progress Note SUBJECTIVE: No acute events overnight. Denies SOB, chest pain, lower ext pain, n/v. OBJECTIVE: VS: Please see below PHYSICAL EXAMINATION: CONSTITUTIONAL: Resting in chair, pleasantly confused. EYES: PERRLA, EOM intact HENT, MOUTH: Normocephalic, atraumatic, moist mucous membranes NECK: SUPPLE, no JVD, no lymphadenopathy, no carotid bruit CV: Regular rate and rhythm, S1S2 normal, no murmurs/rubs/gallops RESPIRATORY: mild crackles in LLL, no rales/rhonchi/wheezes GI: BS positive in 4 quadrants, soft, nontender, nondistended, no rebound or guarding, no organomegaly : Deferred MUSCULOSKELETAL: Warm extremities. Area of amputation appears clean, nonsuppurative, no foul smell, healing scabbed area clean. Contracted lower ext bilaterally. No cyanosis, clubbing, swelling, joint deformity, extremity edema INTEGUMENTARY: Intact, no rashes, no lesions, no erythema NEUROLOGIC: Cranial Nerves II-XII are intact, no focal deficits CURRENT MEDICATIONS: Please see below LABORATORY DATA: Please see below IMAGING: No new imaging. 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 PLAN: (1) Acute kidney injury. Resolved as of today. F/u daily labs. Avoid nephrotoxic meds. (2) Elevated CRP, ESR. Not suspecting this is caused by the foot, as foot appears clean with no erythema or increased swelling. Monitor closely for a spiration concerns but currently no indication to repeat CXR-on RA, no cough, afebrile, WBC wnl. Will check UA. (3) Distal dried gangrene, with recent third metatarsal head excision and wound debridement, excisional type, including subcutaneous tissue, tendon and bone 07/10/19. 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 Not vascular candidate for intervention/surgery. The patient is Pravin lift and turn every hour. Wound care. Awaiting longterm placement. Podiatry, ID following. (4) Chronic osteomyelitis. CRP elevated, WBC wnl. Positive enterococcus and wound cultures on ampicillin as per sensitivities. Pressure ulcers in bilateral heels. Boots are in place. Treatment as above under problem #2. C/w Ampicillin 2 gm Q6 hrs until 08/23/19. ID following. (5) BPH, chronic. Continue present medications (6) Dementia, chronic. Continue present medications (7) HTN, chronic. Continue present medications (8) DVT px- Enoxaparin. DISPOSITION: C/w treatment above. Awaiting placement to SNF. Podiatry and ID following. VS, I&O, 24H, Fishbone Vital Signs/I&O Vital Signs Date Time Temp Pulse Resp B/P (MAP) Pulse Ox O2 Delivery O2 Flow Rate FiO2 08/06/19 14:00 98.4 77 20 134/61 (85) 96 08/05/19 14:00 Room Air I&O- Last 24 Hours up to 6 AM 08/06/19 06:00 Intake Total 1020 ml Output Total 200 ml Balance 820 ml Laboratory Data 24H LABS Laboratory Tests 2 08/06/19 05:28: Nucleated Red Blood Cells % (auto) 0.0, Erythrocyte Sedimentation Rate 81H, Anion Gap 6L, Glomerular Filtration Rate 55.9, Calcium Level 8.3L, Total Bi lirubin 0.2, Aspartate Amino Transf (AST/SGOT) 14, Alanine Aminotransferase (ALT/SGPT) 11L, Alkaline Phosphatase 49, Total Protein 5.9L, Albumin 1.8L, Albumin/Globulin Ratio 0.44L CBC/BMP Laboratory Tests 08/06/19 05:28 Microbiology Microbiology 07/28/19 Gram Stain - Final, Complete 07/28/19 Sputum Culture - Final, Complete Yeast Like Organism Current Medications Current Medications Medications (Trade) Dose Ordered Sig/Hubert Route PRN Reason Start Time Stop Time Status Last Admin Dose Admin Acetaminophen (Tylenol Tab) 650 mg Q4H PRN PO PAIN OR FEVER 02/12/19 02:30 07/23/19 21:08 Amlodipine Besylate (Norvasc) 2.5 mg BID PO 07/12/19 02:30 07/12/19 10:15 DC 07/12/19 08:17 Amlodipine Besylate (Norvasc) 5 mg BID PO 02/21/19 09:00 02/21/19 08:44 DC Amlodipine Besylate (Norvasc) 5 mg DAILY PO 05/10/19 09:00 05/10/19 09:32 DC Amlodipine Besylate (Norvasc) 5 mg QHS PO 04/20/19 21:00 04/29/19 14:56 DC 04/28/19 20:47 Amlodipine Besylate (Norvasc) 10 mg DAILY PO 05/03/19 09:00 05/09/19 09:24 DC 05/07/19 08:07 Amlodipine Besylate (Norvasc) 10 mg DAILY PO 02/12/19 09:00 02/13/19 09:42 DC 02/13/19 08:52 Amlodipine Besylate (Norvasc) 10 mg DAILY PO 02/13/19 09:00 02/13/19 09:45 DC Amlodipine Besylate (Norvasc) 10 mg DAILY PO 02/14/19 09:00 02/21/19 06:46 DC 02/19/19 08:33 Amlodipine Besylate (Norvasc) 10 mg QHS PO 02/21/19 21:00 04/20/19 15:21 DC 04/19/19 20:12 Amoxicillin/ Clavulanate Potassium (Augmentin) 500 mg BID PO 05/01/19 10:00 05/09/19 07:52 DC 05/08/19 19:47 Amoxicillin/ Clavulanate Potassium (Augmentin) 500 mg BID PO 03/07/19 21:00 03/12/19 10:33 DC 03/12/19 09:04 Amoxicillin/ Clavulanate Potassium (Augmentin) 875 mg BID PO 05/01/19 21:00 UNV Amoxicillin/ Clavulanate Potassium (Augmentin) 875 mg BID PO 02/15/19 09:00 02/22/19 08:59 DC 02/21/19 20:29 Ampicillin Sodium 2 gm/Dextrose 100 ml @ 200 mls/hr Q6H IV 07/20/19 17:00 07/27/19 13:44 DC 07/27/19 04:31 Ampicillin Sodium 2 gm/Dextrose 100 ml @ 200 mls/hr Q6H IV 07/27/19 14:00 07/28/19 10:39 DC 07/28/19 09:24 Ampicillin Sodium 2 gm/Dextrose 100 ml @ 200 mls/hr Q6H IV 08/04/19 12:00 08/23/19 11:59 08/06/19 17:48 Ampicillin Sodium/ Sulbactam Sodium 1.5 gm/Dextrose 50 ml @ 100 mls/hr Q6H IV 02/12/19 05:00 02/15/19 09:27 DC 02/15/19 05:19 Ampicillin Sodium/ Sulbactam Sodium 3 gm/Dextrose 100 ml @ 200 mls/hr Q12H IV 03/06/19 23:00 03/07/19 17:17 DC 03/07/19 11:39 Atenolol (Tenormin) 12.5 mg BID PO 02/13/19 09:00 02/15/19 14:32 DC 02/14/19 20:57 Azithromycin (Zithromax Tab) 500 mg DAILY PO 03/07/19 09:00 03/13/19 14:18 DC 03/13/19 10:03 Azithromycin 500 mg/IV Miscellaneous Supplies 1 each/ Dextrose 255 ml @ 255 mls/hr Q24H IV 03/06/19 00:00 03/07/19 17:17 DC 03/07/19 00:44 Bisacodyl (Dulcolax Suppository) 10 mg Q2DP PRN CA CONSTIPATION 02/12/19 18:45 02/13/19 14:23 Cephalexin Monohydrate (Keflex) 500 mg BID PO 05/25/19 09:00 06/07/19 23:59 DC 06/07/19 21:47 Cephalexin Monohydrate (Keflex) 500 mg Q12H PO 06/29/19 09:00 07/08/19 08:59 DC 07/07/19 20:39 Cetirizine HCl (ZyrTEC) 10 mg DAILY PO 02/14/19 09:00 08/06/19 10:56 Cyanocobalamin (Vitamin B12) 500 mcg QHS PO 02/12/19 21:00 08/05/19 20:51 Dextrose/Lactated Ringer's 1,000 ml @ 40 mls/hr Q24H IV 02/12/19 02:30 02/12/19 17:11 DC 02/12/19 03:12 Divalproex Sodium (Depakote Er) 500 mg QHS PO 02/12/19 21:00 08/01/19 13:32 DC 07/31/19 21:04 Docusate Sodium (Colace) 100 mg Q12HP PRN PO CONSTIPATION 05/03/19 11:45 07/19/19 20:51 Donepezil HCl (AriCEPT) 10 mg QHS PO 02/12/19 21:00 08/05/19 20:50 Enoxaparin Sodium (Lovenox) 30 mg DAILY SC 02/15/19 09:00 07/25/19 08:03 DC 07/24/19 08:46 Furosemide (LASIX injection) 40 mg DAILY IV 07/26/19 09:00 07/27/19 13:01 DC 07/27/19 10:21 Guaifenesin (Mucinex Tab Er) 600 mg BID PO 07/25/19 21:00 07/25/19 17:37 DC Guaifenesin (Robitussin) 10 ml Q4HP PRN PO COUGH 07/25/19 17:45 07/25/19 18:41 Heparin Sodium (Porcine) (Heparin) 5,000 units Q8H SQ 07/25/19 14:00 08/06/19 14:41 Home Med (Med Rec Complete!) ASDIRECTED XX 02/12/19 04:00 02/12/19 04:05 DC Hydralazine HCl (Apresoline) 10 mg Q4H IV 02/12/19 14:00 02/13/19 07:26 DC 02/13/19 05:23 Hydralazine HCl (Apresoline) 20 mg Q6H PO 02/12/19 12:00 02/12/19 13:20 DC Hydralazine HCl (Apresoline) 25 mg QID PO 02/13/19 09:00 02/17/19 12:49 DC 02/17/19 11:08 Isosorbide Dinitrate (Isordil) 20 mg Q6H PO 02/13/19 18:00 02/17/19 12:49 DC 02/17/19 11:06 Labetalol HCl (Normodyne, Trandate) 2 mg Q6HP PRN IV BP > 160/100 02/12/19 03:45 02/12/19 12:21 DC Lactated Ringer's 1,000 ml @ 75 mls/hr [id number] IV 04/28/19 08:15 04/29/19 08:06 DC 04/28/19 20:48 Lactated Ringer's 1,000 ml @ 75 mls/hr [id number] IV 04/29/19 14:30 05/01/19 07:51 DC 04/30/19 19:00 Levofloxacin (Levaquin) 250 mg Q24H PO 05/30/19 22:00 06/12/19 23:59 DC 06/12/19 21:39 Levofloxacin (Levaquin) 750 mg Q48H PO 07/01/19 06:00 07/09/19 10:00 DC 07/09/19 10:07 Levofloxacin (Levaquin) 750 mg Q48H PO 07/26/19 18:00 07/27/19 13:05 DC 07/26/19 19:46 Lisinopril (Prinivil) 5 mg DAILY PO 07/12/19 02:30 07/12/19 10:15 DC 07/12/19 02:57 Lisinopril (Prinivil) 5 mg QHS PO 07/15/19 21:00 07/25/19 08:03 DC 07/24/19 22:18 Lisinopril (Prinivil) 5 mg QHS PO 02/21/19 21:00 04/29/19 14:56 DC 04/28/19 20:46 Lisinopril (Prinivil) 10 mg DAILY PO 05/03/19 09:00 05/09/19 09:24 DC 05/07/19 08:07 Lisinopril (Prinivil) 10 mg QHS PO 05/09/19 21:00 07/09/19 09:01 DC 07/08/19 21:36 Lisinopril (Prinivil) 10 mg QHS PO 02/17/19 21:00 02/21/19 06:43 DC 02/20/19 20:31 Lisinopril (Prinivil) 10 mg QHS PO 02/21/19 21:00 02/21/19 08:44 DC Lisinopril (Prinivil) 20 mg QHS PO 02/21/19 21:00 02/21/19 06:46 DC Magnesium Hydroxide (Milk Of Magnesia) 30 ml DAILYPRN PRN PO CONSTIPATION 02/12/19 19:00 02/13/19 08:57 Metronidazole (Flagyl) 500 mg Q8H PO 05/01/19 14:00 05/03/19 10:32 DC 05/03/19 06:56 Miscellaneous (Unresolved Clarification Entry) SEE LABEL COMMENTS DAILY XX 04/15/19 09:00 Cancel Miscellaneous (Unresolved Clarification Entry) SEE LABEL COMMENTS DAILY XX 04/21/19 09:00 04/21/19 16:34 DC Miscellaneous (Unresolved Clarification Entry) SEE LABEL COMMENTS DAILY XX 05/17/19 09:00 05/17/19 11:43 DC Miscellaneous (Unresolved Clarification Entry) SEE LABEL COMMENTS DAILY XX 05/23/19 09:00 05/24/19 12:03 DC Miscellaneous (Unresolved Clarification Entry) SEE LABEL COMMENTS DAILY XX 05/05/19 09:00 05/05/19 11:26 DC Miscellaneous (Unresolved Clarification Entry) SEE LABEL COMMENTS DAILY XX 06/18/19 09:00 06/20/19 08:54 DC Miscellaneous (Unresolved Clarification Entry) SEE LABEL COMMENTS DAILY XX 06/25/19 09:00 06/25/19 11:30 DC Miscellaneous (Unresolved Clarification Entry) SEE LABEL COMMENTS DAILY XX 07/11/19 09:00 07/11/19 11:57 DC Miscellaneous (Unresolved Clarification Entry) SEE LABEL COMMENTS DAILY XX 02/21/19 09:00 02/22/19 06:40 DC Miscellaneous (Unresolved Clarification Entry) SEE LABEL COMMENTS DAILY XX 02/22/19 09:00 02/22/19 12:30 DC Miscellaneous (Unresolved Clarification Entry) SEE LABEL COMMENTS DAILY XX 02/26/19 09:00 02/26/19 12:38 DC Miscellaneous (Unresolved Clarification Entry) SEE LABEL COMMENTS DAILY XX 03/15/19 09:00 03/15/19 10:31 DC Miscellaneous (Unresolved Clarification Entry) SEE LABEL COMMENTS DAILY XX 03/25/19 09:00 03/25/19 12:55 DC Nitroglycerin (Nitrobid 2%) HOLD FOR SBP<140 1 INCH Q4H TOP 02/12/19 13:00 02/13/19 09:28 DC 02/13/19 08:53 Nystatin (Mycostatin Powder, Nystop) groin BID TOP 06/10/19 09:00 08/06/19 10:57 Piperacillin Sod/ Tazobactam Sod 2.25 gm/Dextrose 50 ml @ 100 mls/hr Q6H IV 07/09/19 14:00 07/12/19 08:42 DC 07/12/19 08:16 Piperacillin Sod/ Tazobactam Sod 2.25 gm/Dextrose 50 ml @ 100 mls/hr Q6H IV 07/28/19 12:00 08/04/19 08:00 DC 08/04/19 05:19 Piperacillin Sod/ Tazobactam Sod 3.375 gm/Dextrose 50 ml @ 50 mls/hr Q6H IV 04/29/19 15:00 05/01/19 07:51 DC 05/01/19 03:19 Piperacillin Sod/ Tazobactam Sod 3.375 gm/Dextrose 50 ml @ 50 mls/hr Q6H IV 07/09/19 14:00 07/09/19 13:52 DC Piperacillin Sod/ Tazobactam Sod 3.375 gm/Dextrose 50 ml @ 50 mls/hr Q6H IV 07/28/19 10:45 07/28/19 10:45 DC Sodium Biphosphate/ Sodium Phosphate (Fleet Enema) 1 ea Q3DP PRN [place] CONSTIPATION 02/12/19 19:00 Sodium Chloride 1,000 ml @ 60 mls/hr [id number] IV 07/25/19 08:15 07/26/19 08:40 DC 07/25/19 16:28 Sodium Chloride 1,000 ml @ 80 mls/hr [id number] IV 07/09/19 09:00 07/11/19 14:05 DC 07/11/19 08:49 Sodium Chloride 1,000 ml @ 80 mls/hr [id number] IV 07/24/19 09:00 07/25/19 05:45 DC 07/24/19 22:17 Sodium Chloride ([place] Nasal [place]) 2 spray Q2HP PRN NA NASAL DRYNESS 02/13/19 09:30 Sodium Chloride ([place] Nasal [place]) 2 spray TID NA 02/13/19 09:00 03/18/19 09:01 DC 03/17/19 21:33 Tamsulosin HCl (Flomax) 0.4 mg QHS PO 02/12/19 21:00 08/05/19 20:50 Trazodone HCl (Desyrel) 25 mg QHSP PRN PO INSOMNIA 02/21/19 06:45 04/23/19 01:42 Valproic Acid (Depakene Solution) 250 mg BID PO 08/01/19 21:00 08/06/19 10:56 Vancomycin HCl 500 mg/Dextrose 110 ml @ 110 mls/hr Q24H IV 07/19/19 12:00 07/20/19 12:22 DC 07/19/19 12:13 Vancomycin HCl 500 mg/IV Miscellaneous Supplies 10 ml @ 10 mls/hr Q8H IV 07/12/19 08:45 07/12/19 09:07 DC Vancomycin HCl 750 mg/IV Miscellaneous Supplies 1 each/ Dextrose 275 ml @ 275 mls/hr Q12H IV 02/12/19 02:30 02/12/19 05:32 DC Vancomycin HCl 750 mg/IV Miscellaneous Supplies 1 each/ Dextrose 275 ml @ 275 mls/hr Q24H IV 04/29/19 16:00 04/30/19 12:06 DC 04/29/19 16:50 Vancomycin HCl 750 mg/IV Miscellaneous Supplies 1 each/ Dextrose 275 ml @ 275 mls/hr Q24H IV 07/16/19 10:00 07/19/19 09:32 DC 07/18/19 09:57 Vancomycin HCl 750 mg/IV Miscellaneous Supplies 1 each/ Dextrose 275 ml @ 275 mls/hr Q24H IV 07/27/19 09:00 07/27/19 13:01 DC 07/27/19 10:21 Vancomycin HCl 750 mg/IV Miscellaneous Supplies 1 each/ Dextrose 275 ml @ 275 mls/hr Q36H IV 07/20/19 19:00 07/20/19 14:57 DC Vancomycin HCl 1000 mg/IV Miscellaneous Supplies 1 each/ Dextrose 270 ml @ 270 mls/hr Q18H IV 02/12/19 06:00 02/15/19 06:02 DC 02/14/19 11:20 Vancomycin HCl 1000 mg/IV Miscellaneous Supplies 1 each/ Dextrose 270 ml @ 270 mls/hr Q24H IV 07/13/19 07:00 07/16/19 06:45 DC 07/15/19 07:06 Vancomycin HCl 1000 mg/IV Miscellaneous Supplies 1 each/ Dextrose 270 ml @ 270 mls/hr Q24H IV 02/15/19 12:00 02/15/19 09:27 DC Vitamin D (Vitamin D) 1,000 units QPM PO 02/12/19 21:00 08/05/19 20:51 Allergies Coded Allergies: No Known Allergies (Unverified , 12/09/18) Radha Delgado MD August 06, 2019 18:21
[2019-08-06 22:00] VITALS: BP 107/50
[2019-08-06] MEDS: DONEPEZIL 5 MG TAB PO SCH (22:23)
[2019-08-06] MEDS: CYANOCOBALAMIN 500 MCG TAB PO SCH (22:23)
[2019-08-06] MEDS: TAMSULOSIN 0.4 MG CAP PO SCH (22:23)
[2019-08-06] MEDS: VITAMIN D 1,000 INTERNATIONAL UNITS TABLET PO SCH (22:23)
[2019-08-06 22:55] LABS: APPEARANCE, URINE CLEAR (CLEAR); BACTERIA, URINE AUTO NEGATIVE (NEGATIVE); BILIRUBIN, URINE AUTO NEGATIVE (NEGATIVE); BLOOD, URINE BLOOD NEGATIVE (NEGATIVE); COLOR, URINE YELLOW (YELLOW); GLUCOSE, URINE (UA) AUTO NEGATIVE (NEGATIVE); KETONE, URINE AUTO NEGATIVE (NEGATIVE); LEUKOCYTE ESTERASE, URINE AUTO NEGATIVE (NEGATIVE); MUCUS, URINE SMALL (NEGATIVE); NITRITE, URINE AUTO NEGATIVE (NEGATIVE); PROTEIN, URINE AUTO 1+ mg/dL (NEGATIVE); RBC, URINE AUTO 2 /HPF (0-3); SPECIFIC GRAVITY URINE AUTO 1.025 (1.002-1.035); SQUAMOUS EPITHELIAL CELL UR AU 0 /HPF (0-6); UROBILINOGEN, URINE AUTO 0.2 mg/dL (0.0-2.0); WBC, URINE AUTO 2 /HPF (0-3)
--- NOTE | 2019-08-06 23:12 | IPN ---
DATE: 08/06/2019 Mr. Gomez is doing great. He is sitting in the chair. He has no complaints. He is smiling, in a great mood. He states he has only been here for a week. The patient has been in the hospital since January. He has no pain. No nausea, vomiting or diarrhea. No abdominal pain. He is currently on IV ampicillin 1gm IV Q6 hrs , started IV vanco on 07/12/2019 total antibiotic for chronic osteomyelitis of the right foot with anticipated end of therapy being 08/23/2019. LABORATORY DATA: White count 7.3, hemoglobin 9.1, hematocrit 27.9, platelets 319. ESR 81. Sodium 139, potassium 3.9, chloride 107, bicarbonate 26, BUN 18, creatinine 1.3, glucose 74, calcium 8.3, AST 14, ALT 11, alkaline phosphatase 49, CRP 3.9. On physical exam, temperature is 97, pulse 81, respirations 20, blood pressure 144/79, oxygen saturation (O2 sat) 95% on room air. Heart: Normal S1, S2, distant. Lungs: Diminished breath sounds at the bases but clear. Abdomen: Thin, emaciated, soft, nontender. Extremities: No edema. No clubbing or cyanosis. Long nails. Right foot has amputation of toe with an open ulceration measuring 1.8 x 1cm x 1 cm depth with good granulation tissue. No surrounding cellulitis. This is along the lateral border of the foot. Around the midfoot, there is an ulcer that is healing well with a small eschar measuring 3 x 1.8 cm without any evidence of infection either. No purulent discharge. No tenderness. IMPRESSION: 1. Chronic osteomyelitis of the right foot. Status post amputation of the 4th and 5th toe with culture positive for Enterococcus (E) faecalis. Currently on IV ampicillin, doing well. 2. History of possible aspiration pneumonia, finish 7 days of Zosyn. The patient still has a mild cough but no shortness of breath or hypoxia. PLAN: Continue IV ampicillin through peripheral IV with anticipated end of treatment being 08/23/2019, total 6 weeks of treatment MTDD
[2019-08-07 06:00] VITALS: BP 176/62
[2019-08-07] MEDS: AMPICILLIN SOD 2 GM in D5W MINI-BAG PLUS 100 ML IV SCH ×4 (06:00→23:57)
[2019-08-07] MEDS: HEPARIN SOD (PORCINE) 5000UNITS/ML VIAL (J1644 PER 1000UNITS) SQ SCH ×3 (06:00→21:39)
[2019-08-07 06:55] LABS: HEMATOCRIT 28.4 % (42.0-52.0); HEMOGLOBIN 9.3 g/dl (13.5-17.5); MEAN CORPUSCULAR HEMOGLOBIN 31.3 pg (27.0-33.0); MEAN CORPUSCULAR HGB CONC 32.7 g/dl (32.0-36.5); MEAN CORPUSCULAR VOLUME 95.6 fl (80.0-96.0); PLATELET COUNT, AUTOMATED 336 10^3/uL (150-450); RED BLOOD COUNT 2.97 10^6/uL (4.30-6.10); WHITE BLOOD COUNT 9.3 10^3/uL (4.0-10.0)
[2019-08-07 07:25] LABS: ALBUMIN 1.9 GM/DL (3.2-5.2); ALT/SGPT 11 U/L (12-78); BILIRUBIN,TOTAL 0.5 MG/DL (0.2-1.0); BLOOD UREA NITROGEN 19 MG/DL (7-18); CALCIUM LEVEL 8.6 MG/DL (8.8-10.2); CARBON DIOXIDE LEVEL 26 MEQ/L (21-32); CHLORIDE LEVEL 106 MEQ/L (98-107); GLOMERULAR FILTRATION RATE > 60.0 (>35); GLUCOSE, FASTING 88 MG/DL (70-100); POTASSIUM SERUM 3.8 MEQ/L (3.5-5.1); SODIUM LEVEL 139 MEQ/L (136-145); TOTAL PROTEIN 6.3 GM/DL (6.4-8.2)
[2019-08-07] MEDS: CETIRIZINE (ZyrTEC) 10 MG TAB PO SCH (08:54)
[2019-08-07] MEDS: VALPROIC ACID 250MG/5ML SOL ORAL SYRINGE *DRAW UP EXACT DOSE PO SCH ×2 (08:54→21:38)
[2019-08-07] MEDS: NYSTATIN 100,000 UNITS/GM TOPICAL PWD 15 GM TOP SCH ×2 (08:58→21:40)
[2019-08-07 14:00] VITALS: BP 135/63
--- NOTE | 2019-08-07 19:09 | IPNPDOC ---
Date Seen The patient was seen on 08/07/19. Progress Note SUBJECTIVE: No acute events overnight. Denies SOB, chest pain, lower ext pain, n/v. OBJECTIVE: VS: Please see below PHYSICAL EXAMINATION: CONSTITUTIONAL: Resting in chair, pleasantly confused. EYES: PERRLA, EOM intact HENT, MOUTH: Normocephalic, atraumatic, moist mucous membranes NECK: SUPPLE, no JVD, no lymphadenopathy, no carotid bruit CV: Regular rate and rhythm, S1S2 normal, no murmurs/rubs/gallops RESPIRATORY: mild crackles in LLL, no rales/rhonchi/wheezes GI: BS positive in 4 quadrants, soft, nontender, nondistended, no rebound or guarding, no organomegaly : Deferred MUSCULOSKELETAL: Warm extremities. Area of amputation appears clean, nonsuppurative, no foul smell, healing scabbed area clean. Contracted lower ext bilaterally. No cyanosis, clubbing, swelling, joint deformity, extremity edema INTEGUMENTARY: Intact, no rashes, no lesions, no erythema NEUROLOGIC: Cranial Nerves II-XII are intact, no focal deficits CURRENT MEDICATIONS: Please see below LABORATORY DATA: Please see below IMAGING: No new imaging. 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 PLAN: (1) Elevated CRP, ESR. UA neg. Not suspecting this is caused by the foot, as foot appears clean with no erythema or increased swelling. Monitor closely, c/w abx. (3) Distal dried gangrene, with recent third metatarsal head excision and wound debridement, excisional type, including subcutaneous tissue, tendon and bone 07/10/19. 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 Not vascular candidate for intervention/surgery. The patient is Pravin lift and turn every hour. Wound care. Awaiting assisted placement. Podiatry, ID following. (4) Chronic osteomyelitis. CRP elevated, WBC wnl. Positive enterococcus and wound cultures on ampicillin as per sensitivities. Pressure ulcers in bilateral heels. Boots are in place. Treatment as above under problem #2. C/w Ampicillin 2 gm Q6 hrs until 08/23/19. ID following. (5) BPH, chronic. Continue present medications (6) Dementia, chronic. Continue present medications (7) HTN, chronic. Continue present medications (8) DVT px- Enoxaparin. DISPOSITION: C/w treatment above. Awaiting placement to SNF. Podiatry and ID following. VS, I&O, 24H, Fishbone Vital Signs/I&O Vital Signs Date Time Temp Pulse Resp B/P (MAP) Pulse Ox O2 Delivery O2 Flow Rate FiO2 08/07/19 14:00 96.8 78 15 135/63 (87) 95 Room Air I&O- Last 24 Hours up to 6 AM 08/07/19 06:00 Intake Total 980 ml Output Total 100 ml Balance 880 ml Laboratory Data 24H LABS Laboratory Tests 2 08/06/19 22:43: Urine Color YELLOW, Urine Appearance CLEAR, Urine pH 6.0, Urine Specific [place] 1.025, Urine Protein 1+H, Urine Glucose (Auto)(UA) NEGATIVE, Urine Ketones (Auto) NEGATIVE, Urine Blood NEGATIVE, Urine Nitrite NEGATIVE, Urine Bilirubin NEGATIVE, Urine Urobilinogen 0.2, Urine Leukocyte Esterase (Auto) NEGATIVE, Urine WBC (Auto) 2, Urine RBC (Auto) 2, Urine Hyaline Casts (Auto) 0, Urine Bacteria (Auto) NEGATIVE, Urine Squamous Epithelial Cells 0, Urine Mucus (Auto) SMALL, Urine Sperm (Auto) 08/07/19 06:18: Nucleated Red Blood Cells % (auto) 0.0, Anion Gap 7L, Glomerular Filtration Rate > 60.0, Calcium Level 8.6L, Total Bilirubin 0.5#, Aspartate Amino Transf (AST/SGOT) 13, Alanine Aminotransferase (ALT/SGPT) 11L, Alkaline Phosphatase 52, Total Protein 6.3L, Albumin 1.9L, Albumin/Globulin Ratio 0.43L CBC/BMP Laboratory Tests 08/07/19 06:18 Microbiology Microbiology 07/28/19 Gram Stain - Final, Complete 07/28/19 Sputum Culture - Final, Complete Yeast Like Organism Current Medications Current Medications Medications (Trade) Dose Ordered Sig/Hubert Route PRN Reason Start Time Stop Time Status Last Admin Dose Admin Acetaminophen (Tylenol Tab) 650 mg Q4H PRN PO PAIN OR FEVER 02/12/19 02:30 07/23/19 21:08 Amlodipine Besylate (Norvasc) 2.5 mg BID PO 07/12/19 02:30 07/12/19 10:15 DC 07/12/19 08:17 Amlodipine Besylate (Norvasc) 2.5 mg DAILY PO 08/07/19 09:00 Amlodipine Besylate (Norvasc) 5 mg BID PO 02/21/19 09:00 02/21/19 08:44 DC Amlodipine Besylate (Norvasc) 5 mg DAILY PO 05/10/19 09:00 05/10/19 09:32 DC Amlodipine Besylate (Norvasc) 5 mg QHS PO 04/20/19 21:00 04/29/19 14:56 DC 04/28/19 20:47 Amlodipine Besylate (Norvasc) 10 mg DAILY PO 05/03/19 09:00 05/09/19 09:24 DC 05/07/19 08:07 Amlodipine Besylate (Norvasc) 10 mg DAILY PO 02/12/19 09:00 02/13/19 09:42 DC 02/13/19 08:52 Amlodipine Besylate (Norvasc) 10 mg DAILY PO 02/13/19 09:00 02/13/19 09:45 DC Amlodipine Besylate (Norvasc) 10 mg DAILY PO 02/14/19 09:00 02/21/19 06:46 DC 02/19/19 08:33 Amlodipine Besylate (Norvasc) 10 mg QHS PO 02/21/19 21:00 04/20/19 15:21 DC 04/19/19 20:12 Amoxicillin/ Clavulanate Potassium (Augmentin) 500 mg BID PO 05/01/19 10:00 05/09/19 07:52 DC 05/08/19 19:47 Amoxicillin/ Clavulanate Potassium (Augmentin) 500 mg BID PO 03/07/19 21:00 03/12/19 10:33 DC 03/12/19 09:04 Amoxicillin/ Clavulanate Potassium (Augmentin) 875 mg BID PO 05/01/19 21:00 UNV Amoxicillin/ Clavulanate Potassium (Augmentin) 875 mg BID PO 02/15/19 09:00 02/22/19 08:59 DC 02/21/19 20:29 Ampicillin Sodium 2 gm/Dextrose 100 ml @ 200 mls/hr Q6H IV 07/20/19 17:00 07/27/19 13:44 DC 07/27/19 04:31 Ampicillin Sodium 2 gm/Dextrose 100 ml @ 200 mls/hr Q6H IV 07/27/19 14:00 07/28/19 10:39 DC 07/28/19 09:24 Ampicillin Sodium 2 gm/Dextrose 100 ml @ 200 mls/hr Q6H IV 08/04/19 12:00 08/23/19 11:59 08/07/19 17:36 Ampicillin Sodium/ Sulbactam Sodium 1.5 gm/Dextrose 50 ml @ 100 mls/hr Q6H IV 02/12/19 05:00 02/15/19 09:27 DC 02/15/19 05:19 Ampicillin Sodium/ Sulbactam Sodium 3 gm/Dextrose 100 ml @ 200 mls/hr Q12H IV 03/06/19 23:00 03/07/19 17:17 DC 03/07/19 11:39 Atenolol (Tenormin) 12.5 mg BID PO 02/13/19 09:00 02/15/19 14:32 DC 02/14/19 20:57 Azithromycin (Zithromax Tab) 500 mg DAILY PO 03/07/19 09:00 03/13/19 14:18 DC 03/13/19 10:03 Azithromycin 500 mg/IV Miscellaneous Supplies 1 each/ Dextrose 255 ml @ 255 mls/hr Q24H IV 03/06/19 00:00 03/07/19 17:17 DC 03/07/19 00:44 Bisacodyl (Dulcolax Suppository) 10 mg Q2DP PRN SD CONSTIPATION 02/12/19 18:45 02/13/19 14:23 Cephalexin Monohydrate (Keflex) 500 mg BID PO 05/25/19 09:00 06/07/19 23:59 DC 06/07/19 21:47 Cephalexin Monohydrate (Keflex) 500 mg Q12H PO 06/29/19 09:00 07/08/19 08:59 DC 07/07/19 20:39 Cetirizine HCl (ZyrTEC) 10 mg DAILY PO 02/14/19 09:00 08/07/19 08:54 Cyanocobalamin (Vitamin B12) 500 mcg QHS PO 02/12/19 21:00 08/06/19 22:23 Dextrose/Lactated Ringer's 1,000 ml @ 40 mls/hr Q24H IV 02/12/19 02:30 02/12/19 17:11 DC 02/12/19 03:12 Divalproex Sodium (Depakote Er) 500 mg QHS PO 02/12/19 21:00 08/01/19 13:32 DC 07/31/19 21:04 Docusate Sodium (Colace) 100 mg Q12HP PRN PO CONSTIPATION 05/03/19 11:45 07/19/19 20:51 Donepezil HCl (AriCEPT) 10 mg QHS PO 02/12/19 21:00 08/06/19 22:23 Enoxaparin Sodium (Lovenox) 30 mg DAILY SC 02/15/19 09:00 07/25/19 08:03 DC 07/24/19 08:46 Furosemide (LASIX injection) 40 mg DAILY IV 07/26/19 09:00 07/27/19 13:01 DC 07/27/19 10:21 Guaifenesin (Mucinex Tab Er) 600 mg BID PO 07/25/19 21:00 07/25/19 17:37 DC Guaifenesin (Robitussin) 10 ml Q4HP PRN PO COUGH 07/25/19 17:45 07/25/19 18:41 Heparin Sodium (Porcine) (Heparin) 5,000 units Q8H SQ 07/25/19 14:00 08/07/19 13:11 Home Med (Med Rec Complete!) ASDIRECTED XX 02/12/19 04:00 02/12/19 04:05 DC Hydralazine HCl (Apresoline) 10 mg Q4H IV 02/12/19 14:00 02/13/19 07:26 DC 02/13/19 05:23 Hydralazine HCl (Apresoline) 20 mg Q6H PO 02/12/19 12:00 02/12/19 13:20 DC Hydralazine HCl (Apresoline) 25 mg QID PO 02/13/19 09:00 02/17/19 12:49 DC 02/17/19 11:08 Isosorbide Dinitrate (Isordil) 20 mg Q6H PO 02/13/19 18:00 02/17/19 12:49 DC 02/17/19 11:06 Labetalol HCl (Normodyne, Trandate) 2 mg Q6HP PRN IV BP > 160/100 02/12/19 03:45 02/12/19 12:21 DC Lactated Ringer's 1,000 ml @ 75 mls/hr [id number] IV 04/28/19 08:15 04/29/19 08:06 DC 04/28/19 20:48 Lactated Ringer's 1,000 ml @ 75 mls/hr [id number] IV 04/29/19 14:30 05/01/19 07:51 DC 04/30/19 19:00 Levofloxacin (Levaquin) 250 mg Q24H PO 05/30/19 22:00 06/12/19 23:59 DC 06/12/19 21:39 Levofloxacin (Levaquin) 750 mg Q48H PO 07/01/19 06:00 07/09/19 10:00 DC 07/09/19 10:07 Levofloxacin (Levaquin) 750 mg Q48H PO 07/26/19 18:00 07/27/19 13:05 DC 07/26/19 19:46 Lisinopril (Prinivil) 5 mg DAILY PO 07/12/19 02:30 07/12/19 10:15 DC 07/12/19 02:57 Lisinopril (Prinivil) 5 mg QHS PO 07/15/19 21:00 07/25/19 08:03 DC 07/24/19 22:18 Lisinopril (Prinivil) 5 mg QHS PO 02/21/19 21:00 04/29/19 14:56 DC 04/28/19 20:46 Lisinopril (Prinivil) 10 mg DAILY PO 05/03/19 09:00 05/09/19 09:24 DC 05/07/19 08:07 Lisinopril (Prinivil) 10 mg QHS PO 05/09/19 21:00 07/09/19 09:01 DC 07/08/19 21:36 Lisinopril (Prinivil) 10 mg QHS PO 02/17/19 21:00 02/21/19 06:43 DC 02/20/19 20:31 Lisinopril (Prinivil) 10 mg QHS PO 02/21/19 21:00 02/21/19 08:44 DC Lisinopril (Prinivil) 20 mg QHS PO 02/21/19 21:00 02/21/19 06:46 DC Magnesium Hydroxide (Milk Of Magnesia) 30 ml DAILYPRN PRN PO CONSTIPATION 02/12/19 19:00 02/13/19 08:57 Metronidazole (Flagyl) 500 mg Q8H PO 05/01/19 14:00 05/03/19 10:32 DC 05/03/19 06:56 Miscellaneous (Unresolved Clarification Entry) SEE LABEL COMMENTS DAILY XX 04/15/19 09:00 Cancel Miscellaneous (Unresolved Clarification Entry) SEE LABEL COMMENTS DAILY XX 04/21/19 09:00 04/21/19 16:34 DC Miscellaneous (Unresolved Clarification Entry) SEE LABEL COMMENTS DAILY XX 05/17/19 09:00 05/17/19 11:43 DC Miscellaneous (Unresolved Clarification Entry) SEE LABEL COMMENTS DAILY XX 05/23/19 09:00 05/24/19 12:03 DC Miscellaneous (Unresolved Clarification Entry) SEE LABEL COMMENTS DAILY XX 05/05/19 09:00 05/05/19 11:26 DC Miscellaneous (Unresolved Clarification Entry) SEE LABEL COMMENTS DAILY XX 06/18/19 09:00 06/20/19 08:54 DC Miscellaneous (Unresolved Clarification Entry) SEE LABEL COMMENTS DAILY XX 06/25/19 09:00 06/25/19 11:30 DC Miscellaneous (Unresolved Clarification Entry) SEE LABEL COMMENTS DAILY XX 07/11/19 09:00 07/11/19 11:57 DC Miscellaneous (Unresolved Clarification Entry) SEE LABEL COMMENTS DAILY XX 02/21/19 09:00 02/22/19 06:40 DC Miscellaneous (Unresolved Clarification Entry) SEE LABEL COMMENTS DAILY XX 02/22/19 09:00 02/22/19 12:30 DC Miscellaneous (Unresolved Clarification Entry) SEE LABEL COMMENTS DAILY XX 02/26/19 09:00 02/26/19 12:38 DC Miscellaneous (Unresolved Clarification Entry) SEE LABEL COMMENTS DAILY XX 03/15/19 09:00 03/15/19 10:31 DC Miscellaneous (Unresolved Clarification Entry) SEE LABEL COMMENTS DAILY XX 03/25/19 09:00 03/25/19 12:55 DC Nitroglycerin (Nitrobid 2%) HOLD FOR SBP<140 1 INCH Q4H TOP 02/12/19 13:00 02/13/19 09:28 DC 02/13/19 08:53 Nystatin (Mycostatin Powder, Nystop) groin BID TOP 06/10/19 09:00 08/07/19 08:58 Piperacillin Sod/ Tazobactam Sod 2.25 gm/Dextrose 50 ml @ 100 mls/hr Q6H IV 07/09/19 14:00 07/12/19 08:42 DC 07/12/19 08:16 Piperacillin Sod/ Tazobactam Sod 2.25 gm/Dextrose 50 ml @ 100 mls/hr Q6H IV 07/28/19 12:00 08/04/19 08:00 DC 08/04/19 05:19 Piperacillin Sod/ Tazobactam Sod 3.375 gm/Dextrose 50 ml @ 50 mls/hr Q6H IV 04/29/19 15:00 05/01/19 07:51 DC 05/01/19 03:19 Piperacillin Sod/ Tazobactam Sod 3.375 gm/Dextrose 50 ml @ 50 mls/hr Q6H IV 07/09/19 14:00 07/09/19 13:52 DC Piperacillin Sod/ Tazobactam Sod 3.375 gm/Dextrose 50 ml @ 50 mls/hr Q6H IV 07/28/19 10:45 07/28/19 10:45 DC Sodium Biphosphate/ Sodium Phosphate (Fleet Enema) 1 ea Q3DP PRN SD CONSTIPATION 02/12/19 19:00 Sodium Chloride 1,000 ml @ 60 mls/hr [id number] IV 07/25/19 08:15 07/26/19 08:40 DC 07/25/19 16:28 Sodium Chloride 1,000 ml @ 80 mls/hr [id number] IV 07/09/19 09:00 07/11/19 14:05 DC 07/11/19 08:49 Sodium Chloride 1,000 ml @ 80 mls/hr [id number] IV 07/24/19 09:00 07/25/19 05:45 DC 07/24/19 22:17 Sodium Chloride (Ponder Nasal Dickens) 2 spray Q2HP PRN NA NASAL DRYNESS 02/13/19 09:30 Sodium Chloride (Ponder Nasal Dickens) 2 spray TID NA 02/13/19 09:00 03/18/19 09:01 DC 03/17/19 21:33 Tamsulosin HCl (Flomax) 0.4 mg QHS PO 02/12/19 21:00 08/06/19 22:23 Trazodone HCl (Desyrel) 25 mg QHSP PRN PO INSOMNIA 02/21/19 06:45 04/23/19 01:42 Valproic Acid (Depakene Solution) 250 mg BID PO 08/01/19 21:00 08/07/19 08:54 Vancomycin HCl 500 mg/Dextrose 110 ml @ 110 mls/hr Q24H IV 07/19/19 12:00 07/20/19 12:22 DC 07/19/19 12:13 Vancomycin HCl 500 mg/IV Miscellaneous Supplies 10 ml @ 10 mls/hr Q8H IV 07/12/19 08:45 07/12/19 09:07 DC Vancomycin HCl 750 mg/IV Miscellaneous Supplies 1 each/ Dextrose 275 ml @ 275 mls/hr Q12H IV 02/12/19 02:30 02/12/19 05:32 DC Vancomycin HCl 750 mg/IV Miscellaneous Supplies 1 each/ Dextrose 275 ml @ 275 mls/hr Q24H IV 04/29/19 16:00 04/30/19 12:06 DC 04/29/19 16:50 Vancomycin HCl 750 mg/IV Miscellaneous Supplies 1 each/ Dextrose 275 ml @ 275 mls/hr Q24H IV 07/16/19 10:00 07/19/19 09:32 DC 07/18/19 09:57 Vancomycin HCl 750 mg/IV Miscellaneous Supplies 1 each/ Dextrose 275 ml @ 275 mls/hr Q24H IV 07/27/19 09:00 07/27/19 13:01 DC 07/27/19 10:21 Vancomycin HCl 750 mg/IV Miscellaneous Supplies 1 each/ Dextrose 275 ml @ 275 mls/hr Q36H IV 07/20/19 19:00 07/20/19 14:57 DC Vancomycin HCl 1000 mg/IV Miscellaneous Supplies 1 each/ Dextrose 270 ml @ 270 mls/hr Q18H IV 02/12/19 06:00 02/15/19 06:02 DC 02/14/19 11:20 Vancomycin HCl 1000 mg/IV Miscellaneous Supplies 1 each/ Dextrose 270 ml @ 270 mls/hr Q24H IV 07/13/19 07:00 07/16/19 06:45 DC 07/15/19 07:06 Vancomycin HCl 1000 mg/IV Miscellaneous Supplies 1 each/ Dextrose 270 ml @ 270 mls/hr Q24H IV 02/15/19 12:00 02/15/19 09:27 DC Vitamin D (Vitamin D) 1,000 units QPM PO 02/12/19 21:00 08/06/19 22:23 Allergies Coded Allergies: No Known Allergies (Unverified , 12/09/18) Radha Delgado MD August 07, 2019 19:09
[2019-08-07] MEDS: DONEPEZIL 5 MG TAB PO SCH (21:36)
[2019-08-07] MEDS: TAMSULOSIN 0.4 MG CAP PO SCH (21:36)
[2019-08-07] MEDS: VITAMIN D 1,000 INTERNATIONAL UNITS TABLET PO SCH (21:36)
[2019-08-07] MEDS: CYANOCOBALAMIN 500 MCG TAB PO SCH (21:39)
[2019-08-08] MEDS ORDERED: amLODIPine 5 MG TAB PO ONE ×2 (00:15→22:00)
[2019-08-08] MEDS ORDERED: **hydrALAZINE** 10 MG TAB PO ONE (02:15)
[2019-08-08] MEDS: AMPICILLIN SOD 2 GM in D5W MINI-BAG PLUS 100 ML IV SCH ×4 (05:44→23:08)
[2019-08-08] MEDS: HEPARIN SOD (PORCINE) 5000UNITS/ML VIAL (J1644 PER 1000UNITS) SQ SCH ×3 (05:44→22:21)
[2019-08-08 06:00] VITALS: BP 137/55
[2019-08-08 06:59] LABS: HEMATOCRIT 29.5 % (42.0-52.0); HEMOGLOBIN 9.8 g/dl (13.5-17.5); MEAN CORPUSCULAR HEMOGLOBIN 31.9 pg (27.0-33.0); MEAN CORPUSCULAR HGB CONC 33.2 g/dl (32.0-36.5); MEAN CORPUSCULAR VOLUME 96.1 fl (80.0-96.0); PLATELET COUNT, AUTOMATED 333 10^3/uL (150-450); RED BLOOD COUNT 3.07 10^6/uL (4.30-6.10); WHITE BLOOD COUNT 8.5 10^3/uL (4.0-10.0)
[2019-08-08 07:18] LABS: ERYTHROCYTE SEDIMENTATION RATE 77 mm/hr (0-20)
[2019-08-08 07:33] LABS: ALBUMIN 1.8 GM/DL (3.2-5.2); ALT/SGPT 9 U/L (12-78); BILIRUBIN,TOTAL 0.2 MG/DL (0.2-1.0); BLOOD UREA NITROGEN 15 MG/DL (7-18); C REACTIVE PROTEIN QUANTITATIV 3.68 MG/DL (0.00-0.30); CALCIUM LEVEL 8.6 MG/DL (8.8-10.2); CARBON DIOXIDE LEVEL 26 MEQ/L (21-32); CHLORIDE LEVEL 107 MEQ/L (98-107); GLOMERULAR FILTRATION RATE > 60.0 (>35); GLUCOSE, FASTING 99 MG/DL (70-100); POTASSIUM SERUM 3.4 MEQ/L (3.5-5.1); SODIUM LEVEL 139 MEQ/L (136-145); TOTAL PROTEIN 6.7 GM/DL (6.4-8.2)
[2019-08-08] MEDS ORDERED: POTASSIUM CHLORIDE 10 MEQ SR TABLET PO ONE (09:00)
[2019-08-08] MEDS: VALPROIC ACID 250MG/5ML SOL ORAL SYRINGE *DRAW UP EXACT DOSE PO SCH ×2 (09:36→22:21)
[2019-08-08] MEDS: CETIRIZINE (ZyrTEC) 10 MG TAB PO SCH (09:37)
[2019-08-08] MEDS: NYSTATIN 100,000 UNITS/GM TOPICAL PWD 15 GM TOP SCH ×2 (09:37→22:23)
[2019-08-08 09:41] VITALS: BP 133/56
[2019-08-08 14:00] VITALS: BP 136/61
--- NOTE | 2019-08-08 16:58 | IPNPDOC ---
Date Seen The patient was seen on 08/08/19. Progress Note SUBJECTIVE: No acute events overnight. Denies SOB, chest pain, lower ext pain, n/v. OBJECTIVE: VS: Please see below PHYSICAL EXAMINATION: CONSTITUTIONAL: Resting in chair, pleasantly confused. EYES: PERRLA, EOM intact HENT, MOUTH: Normocephalic, atraumatic, moist mucous membranes NECK: SUPPLE, no JVD, no lymphadenopathy, no carotid bruit CV: Regular rate and rhythm, S1S2 normal, no murmurs/rubs/gallops RESPIRATORY: mild crackles in LLL, no rales/rhonchi/wheezes GI: BS positive in 4 quadrants, soft, nontender, nondistended, no rebound or guarding, no organomegaly : Deferred MUSCULOSKELETAL: Warm extremities. Area of amputation appears clean, nonsuppurative, no foul smell, healing scabbed area clean. Contracted lower ext bilaterally. No cyanosis, clubbing, swelling, joint deformity, extremity edema INTEGUMENTARY: Intact, no rashes, no lesions, no erythema NEUROLOGIC: Cranial Nerves II-XII are intact, no focal deficits CURRENT MEDICATIONS: Please see below LABORATORY DATA: Please see below IMAGING: No new imaging. 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 PLAN: (1) Elevated CRP, ESR. UA neg. Not suspecting this is caused by the foot, as foot appears clean with no erythema or increased swelling. Monitor closely, c/w abx. (3) Distal dried gangrene, with recent third metatarsal head excision and wound debridement, excisional type, including subcutaneous tissue, tendon and bone 07/10/19. 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 Not vascular candidate for intervention/surgery. The patient is Pravin lift and turn every hour. Wound care. Awaiting fpc placement. Podiatry, ID following. (4) Chronic osteomyelitis. CRP elevated, WBC wnl. Positive enterococcus and wound cultures on ampicillin as per sensitivities. Pressure ulcers in bilateral heels. Boots are in place. Treatment as above under problem #2. C/w Ampicillin 2 gm Q6 hrs until 08/23/19. ID following. (5) BPH, chronic. Continue present medications (6) Dementia, chronic. Continue present medications (7) HTN, chronic. Continue present medications (8) DVT px- Enoxaparin. DISPOSITION: C/w treatment above. Awaiting placement to SNF. Podiatry and ID following. VS, I&O, 24H, Fishbone Vital Signs/I&O Vital Signs Date Time Temp Pulse Resp B/P (MAP) Pulse Ox O2 Delivery O2 Flow Rate FiO2 08/08/19 14:00 98.1 51 16 136/61 (86) 96 Room Air I&O- Last 24 Hours up to 6 AM 08/08/19 06:00 Intake Total 800 ml Balance 800 ml Laboratory Data 24H LABS Laboratory Tests 2 08/08/19 06:32: Nucleated Red Blood Cells % (auto) 0.0, Erythrocyte Sedimentation Rate 77H, Anion Gap 6L, Glomerular Filtration Rate > 60.0, Calcium Level 8.6L, Total Bilirubin 0.2#, Aspartate Amino Transf (AST/SGOT) 14, Alanine Aminotransferase (ALT/SGPT) 9L, Alkaline Phosphatase 52, C-Reactive Protein, Quantitative 3.68H, Total Protein 6.7, Albumin 1.8L, Albumin/Globulin Ratio 0.37L CBC/BMP Laboratory Tests 08/08/19 06:32 Current Medications Current Medications Medications (Trade) Dose Ordered Sig/Hubert Route PRN Reason Start Time Stop Time Status Last Admin Dose Admin Acetaminophen (Tylenol Tab) 650 mg Q4H PRN PO PAIN OR FEVER 02/12/19 02:30 07/23/19 21:08 Amlodipine Besylate (Norvasc) 2.5 mg BID PO 07/12/19 02:30 07/12/19 10:15 DC 07/12/19 08:17 Amlodipine Besylate (Norvasc) 2.5 mg DAILY PO 08/07/19 09:00 Amlodipine Besylate (Norvasc) 5 mg BID PO 02/21/19 09:00 02/21/19 08:44 DC Amlodipine Besylate (Norvasc) 5 mg DAILY PO 05/10/19 09:00 05/10/19 09:32 DC Amlodipine Besylate (Norvasc) 5 mg QHS PO 04/20/19 21:00 04/29/19 14:56 DC 04/28/19 20:47 Amlodipine Besylate (Norvasc) 10 mg DAILY PO 2/3/20 09:00 05/09/19 09:24 DC 05/07/19 08:07 Amlodipine Besylate (Norvasc) 10 mg DAILY PO 02/12/19 09:00 02/13/19 09:42 DC 02/13/19 08:52 Amlodipine Besylate (Norvasc) 10 mg DAILY PO 02/13/19 09:00 02/13/19 09:45 DC Amlodipine Besylate (Norvasc) 10 mg DAILY PO 02/14/19 09:00 02/21/19 06:46 DC 02/19/19 08:33 Amlodipine Besylate (Norvasc) 10 mg QHS PO 02/21/19 21:00 04/20/19 15:21 DC 04/19/19 20:12 Amoxicillin/ Clavulanate Potassium (Augmentin) 500 mg BID PO 05/01/19 10:00 05/09/19 07:52 DC 05/08/19 19:47 Amoxicillin/ Clavulanate Potassium (Augmentin) 500 mg BID PO 03/07/19 21:00 03/12/19 10:33 DC 03/12/19 09:04 Amoxicillin/ Clavulanate Potassium (Augmentin) 875 mg BID PO 05/01/19 21:00 UNV Amoxicillin/ Clavulanate Potassium (Augmentin) 875 mg BID PO 02/15/19 09:00 02/22/19 08:59 DC 02/21/19 20:29 Ampicillin Sodium 2 gm/Dextrose 100 ml @ 200 mls/hr Q6H IV 07/20/19 17:00 07/27/19 13:44 DC 07/27/19 04:31 Ampicillin Sodium 2 gm/Dextrose 100 ml @ 200 mls/hr Q6H IV 07/27/19 14:00 07/28/19 10:39 DC 07/28/19 09:24 Ampicillin Sodium 2 gm/Dextrose 100 ml @ 200 mls/hr Q6H IV 08/04/19 12:00 08/23/19 11:59 08/08/19 12:10 Ampicillin Sodium/ Sulbactam Sodium 1.5 gm/Dextrose 50 ml @ 100 mls/hr Q6H IV 02/12/19 05:00 02/15/19 09:27 DC 02/15/19 05:19 Ampicillin Sodium/ Sulbactam Sodium 3 gm/Dextrose 100 ml @ 200 mls/hr Q12H IV 03/06/19 23:00 03/07/19 17:17 DC 03/07/19 11:39 Atenolol (Tenormin) 12.5 mg BID PO 02/13/19 09:00 02/15/19 14:32 DC 02/14/19 20:57 Azithromycin (Zithromax Tab) 500 mg DAILY PO 03/07/19 09:00 03/13/19 14:18 DC 03/13/19 10:03 Azithromycin 500 mg/IV Miscellaneous Supplies 1 each/ Dextrose 255 ml @ 255 mls/hr Q24H IV 03/06/19 00:00 03/07/19 17:17 DC 03/07/19 00:44 Bisacodyl (Dulcolax Suppository) 10 mg Q2DP PRN [place] CONSTIPATION 02/12/19 18:45 02/13/19 14:23 Cephalexin Monohydrate (Keflex) 500 mg BID PO 05/25/19 09:00 06/07/19 23:59 DC 06/07/19 21:47 Cephalexin Monohydrate (Keflex) 500 mg Q12H PO 06/29/19 09:00 07/08/19 08:59 DC 07/07/19 20:39 Cetirizine HCl (ZyrTEC) 10 mg DAILY PO 02/14/19 09:00 08/08/19 09:37 Cyanocobalamin (Vitamin B12) 500 mcg QHS PO 02/12/19 21:00 08/07/19 21:39 Dextrose/Lactated Ringer's 1,000 ml @ 40 mls/hr Q24H IV 02/12/19 02:30 02/12/19 17:11 DC 02/12/19 03:12 Divalproex Sodium (Depakote Er) 500 mg QHS PO 02/12/19 21:00 08/01/19 13:32 DC 07/31/19 21:04 Docusate Sodium (Colace) 100 mg Q12HP PRN PO CONSTIPATION 05/03/19 11:45 07/19/19 20:51 Donepezil HCl (AriCEPT) 10 mg QHS PO 02/12/19 21:00 08/07/19 21:36 Enoxaparin Sodium (Lovenox) 30 mg DAILY SC 02/15/19 09:00 07/25/19 08:03 DC 07/24/19 08:46 Furosemide (LASIX injection) 40 mg DAILY IV 07/26/19 09:00 07/27/19 13:01 DC 07/27/19 10:21 Guaifenesin (Mucinex Tab Er) 600 mg BID PO 07/25/19 21:00 07/25/19 17:37 DC Guaifenesin (Robitussin) 10 ml Q4HP PRN PO COUGH 07/25/19 17:45 07/25/19 18:41 Heparin Sodium (Porcine) (Heparin) 5,000 units Q8H SQ 07/25/19 14:00 08/08/19 13:54 Home Med (Med Rec Complete!) ASDIRECTED XX 02/12/19 04:00 02/12/19 04:05 DC Hydralazine HCl (Apresoline) 10 mg Q4H IV 02/12/19 14:00 02/13/19 07:26 DC 02/13/19 05:23 Hydralazine HCl (Apresoline) 20 mg Q6H PO 02/12/19 12:00 02/12/19 13:20 DC Hydralazine HCl (Apresoline) 25 mg QID PO 02/13/19 09:00 02/17/19 12:49 DC 02/17/19 11:08 Isosorbide Dinitrate (Isordil) 20 mg Q6H PO 02/13/19 18:00 02/17/19 12:49 DC 02/17/19 11:06 Labetalol HCl (Normodyne, Trandate) 2 mg Q6HP PRN IV BP > 160/100 02/12/19 03:45 02/12/19 12:21 DC Lactated Ringer's 1,000 ml @ 75 mls/hr [id number] IV 04/28/19 08:15 04/29/19 08:06 DC 04/28/19 20:48 Lactated Ringer's 1,000 ml @ 75 mls/hr [id number] IV 04/29/19 14:30 05/01/19 07:51 DC 04/30/19 19:00 Levofloxacin (Levaquin) 250 mg Q24H PO 05/30/19 22:00 06/12/19 23:59 DC 06/12/19 21:39 Levofloxacin (Levaquin) 750 mg Q48H PO 07/01/19 06:00 07/09/19 10:00 DC 07/09/19 10:07 Levofloxacin (Levaquin) 750 mg Q48H PO 07/26/19 18:00 07/27/19 13:05 DC 07/26/19 19:46 Lisinopril (Prinivil) 5 mg DAILY PO 07/12/19 02:30 07/12/19 10:15 DC 07/12/19 02:57 Lisinopril (Prinivil) 5 mg QHS PO 07/15/19 21:00 07/25/19 08:03 DC 07/24/19 22:18 Lisinopril (Prinivil) 5 mg QHS PO 02/21/19 21:00 04/29/19 14:56 DC 04/28/19 20:46 Lisinopril (Prinivil) 10 mg DAILY PO 05/03/19 09:00 05/09/19 09:24 DC 05/07/19 08:07 Lisinopril (Prinivil) 10 mg QHS PO 05/09/19 21:00 07/09/19 09:01 DC 07/08/19 21:36 Lisinopril (Prinivil) 10 mg QHS PO 02/17/19 21:00 02/21/19 06:43 DC 02/20/19 20:31 Lisinopril (Prinivil) 10 mg QHS PO 02/21/19 21:00 02/21/19 08:44 DC Lisinopril (Prinivil) 20 mg QHS PO 02/21/19 21:00 02/21/19 06:46 DC Magnesium Hydroxide (Milk Of Magnesia) 30 ml DAILYPRN PRN PO CONSTIPATION 02/12/19 19:00 02/13/19 08:57 Metronidazole (Flagyl) 500 mg Q8H PO 05/01/19 14:00 05/03/19 10:32 DC 05/03/19 06:56 Miscellaneous (Unresolved Clarification Entry) SEE LABEL COMMENTS DAILY XX 04/15/19 09:00 Cancel Miscellaneous (Unresolved Clarification Entry) SEE LABEL COMMENTS DAILY XX 04/21/19 09:00 04/21/19 16:34 DC Miscellaneous (Unresolved Clarification Entry) SEE LABEL COMMENTS DAILY XX 05/17/19 09:00 05/17/19 11:43 DC Miscellaneous (Unresolved Clarification Entry) SEE LABEL COMMENTS DAILY XX 05/23/19 09:00 05/24/19 12:03 DC Miscellaneous (Unresolved Clarification Entry) SEE LABEL COMMENTS DAILY XX 05/05/19 09:00 05/05/19 11:26 DC Miscellaneous (Unresolved Clarification Entry) SEE LABEL COMMENTS DAILY XX 06/18/19 09:00 06/20/19 08:54 DC Miscellaneous (Unresolved Clarification Entry) SEE LABEL COMMENTS DAILY XX 06/25/19 09:00 06/25/19 11:30 DC Miscellaneous (Unresolved Clarification Entry) SEE LABEL COMMENTS DAILY XX 07/11/19 09:00 07/11/19 11:57 DC Miscellaneous (Unresolved Clarification Entry) SEE LABEL COMMENTS DAILY XX 02/21/19 09:00 02/22/19 06:40 DC Miscellaneous (Unresolved Clarification Entry) SEE LABEL COMMENTS DAILY XX 02/22/19 09:00 02/22/19 12:30 DC Miscellaneous (Unresolved Clarification Entry) SEE LABEL COMMENTS DAILY XX 02/26/19 09:00 02/26/19 12:38 DC Miscellaneous (Unresolved Clarification Entry) SEE LABEL COMMENTS DAILY XX 03/15/19 09:00 03/15/19 10:31 DC Miscellaneous (Unresolved Clarification Entry) SEE LABEL COMMENTS DAILY XX 03/25/19 09:00 03/25/19 12:55 DC Nitroglycerin (Nitrobid 2%) HOLD FOR SBP<140 1 INCH Q4H TOP 02/12/19 13:00 02/13/19 09:28 DC 02/13/19 08:53 Nystatin (Mycostatin Powder, Nystop) groin BID TOP 06/10/19 09:00 08/08/19 09:37 Piperacillin Sod/ Tazobactam Sod 2.25 gm/Dextrose 50 ml @ 100 mls/hr Q6H IV 07/09/19 14:00 07/12/19 08:42 DC 07/12/19 08:16 Piperacillin Sod/ Tazobactam Sod 2.25 gm/Dextrose 50 ml @ 100 mls/hr Q6H IV 07/28/19 12:00 08/04/19 08:00 DC 08/04/19 05:19 Piperacillin Sod/ Tazobactam Sod 3.375 gm/Dextrose 50 ml @ 50 mls/hr Q6H IV 04/29/19 15:00 05/01/19 07:51 DC 05/01/19 03:19 Piperacillin Sod/ Tazobactam Sod 3.375 gm/Dextrose 50 ml @ 50 mls/hr Q6H IV 07/09/19 14:00 07/09/19 13:52 DC Piperacillin Sod/ Tazobactam Sod 3.375 gm/Dextrose 50 ml @ 50 mls/hr Q6H IV 07/28/19 10:45 07/28/19 10:45 DC Sodium Biphosphate/ Sodium Phosphate (Fleet Enema) 1 ea Q3DP PRN [place] CONSTIPATION 02/12/19 19:00 Sodium Chloride 1,000 ml @ 60 mls/hr [id number] IV 07/25/19 08:15 07/26/19 08:40 DC 07/25/19 16:28 Sodium Chloride 1,000 ml @ 80 mls/hr [id number] IV 07/09/19 09:00 07/11/19 14:05 DC 07/11/19 08:49 Sodium Chloride 1,000 ml @ 80 mls/hr [id number] IV 07/24/19 09:00 07/25/19 05:45 DC 07/24/19 22:17 Sodium Chloride ([place] Nasal [place]) 2 spray Q2HP PRN NA NASAL DRYNESS 02/13/19 09:30 Sodium Chloride ([place] Nasal [place]) 2 spray TID NA 02/13/19 09:00 03/18/19 09:01 DC 03/17/19 21:33 Tamsulosin HCl (Flomax) 0.4 mg QHS PO 02/12/19 21:00 08/07/19 21:36 Trazodone HCl (Desyrel) 25 mg QHSP PRN PO INSOMNIA 02/21/19 06:45 04/23/19 01:42 Valproic Acid (Depakene Solution) 250 mg BID PO 08/01/19 21:00 08/08/19 09:36 Vancomycin HCl 500 mg/Dextrose 110 ml @ 110 mls/hr Q24H IV 07/19/19 12:00 07/20/19 12:22 DC 07/19/19 12:13 Vancomycin HCl 500 mg/IV Miscellaneous Supplies 10 ml @ 10 mls/hr Q8H IV 07/12/19 08:45 07/12/19 09:07 DC Vancomycin HCl 750 mg/IV Miscellaneous Supplies 1 each/ Dextrose 275 ml @ 275 mls/hr Q12H IV 02/12/19 02:30 02/12/19 05:32 DC Vancomycin HCl 750 mg/IV Miscellaneous Supplies 1 each/ Dextrose 275 ml @ 275 mls/hr Q24H IV 04/29/19 16:00 04/30/19 12:06 DC 04/29/19 16:50 Vancomycin HCl 750 mg/IV Miscellaneous Supplies 1 each/ Dextrose 275 ml @ 275 mls/hr Q24H IV 07/16/19 10:00 07/19/19 09:32 DC 07/18/19 09:57 Vancomycin HCl 750 mg/IV Miscellaneous Supplies 1 each/ Dextrose 275 ml @ 275 mls/hr Q24H IV 07/27/19 09:00 07/27/19 13:01 DC 07/27/19 10:21 Vancomycin HCl 750 mg/IV Miscellaneous Supplies 1 each/ Dextrose 275 ml @ 275 mls/hr Q36H IV 07/20/19 19:00 07/20/19 14:57 DC Vancomycin HCl 1000 mg/IV Miscellaneous Supplies 1 each/ Dextrose 270 ml @ 270 mls/hr Q18H IV 02/12/19 06:00 02/15/19 06:02 DC 02/14/19 11:20 Vancomycin HCl 1000 mg/IV Miscellaneous Supplies 1 each/ Dextrose 270 ml @ 270 mls/hr Q24H IV 07/13/19 07:00 07/16/19 06:45 DC 07/15/19 07:06 Vancomycin HCl 1000 mg/IV Miscellaneous Supplies 1 each/ Dextrose 270 ml @ 270 mls/hr Q24H IV 02/15/19 12:00 02/15/19 09:27 DC Vitamin D (Vitamin D) 1,000 units QPM PO 02/12/19 21:00 08/07/19 21:36 Allergies Coded Allergies: No Known Allergies (Unverified , 12/09/18) Radha Delgado MD August 08, 2019 16:58
[2019-08-08 22:00] VITALS: BP 180/80
[2019-08-08] MEDS: DONEPEZIL 5 MG TAB PO SCH (22:20)
[2019-08-08] MEDS: VITAMIN D 1,000 INTERNATIONAL UNITS TABLET PO SCH (22:21)
[2019-08-08] MEDS: TAMSULOSIN 0.4 MG CAP PO SCH (22:21)
[2019-08-08] MEDS: CYANOCOBALAMIN 500 MCG TAB PO SCH (22:21)
[2019-08-08] MEDS: ACETAMINOPHEN TAB 650MG DOSE (2X325MG) PO PRN (22:22)
[2019-08-09 06:00] VITALS: BP 140/66
[2019-08-09 06:10] LABS: BASO # 0.1 10^3/uL (0.0-0.2); BASO % 0.6 % (0.0-1.0); EOS # 0.4 10^3/uL (0.0-0.5); EOS % 4.3 % (0.0-3.0); HEMOGLOBIN 9.5 g/dl (13.5-17.5); LYMPH % 24.2 % (24.0-44.0); MEAN CORPUSCULAR HEMOGLOBIN 31.5 pg (27.0-33.0); MEAN CORPUSCULAR HGB CONC 32.8 g/dl (32.0-36.5); MONO % 12.6 % (0.0-5.0); NEUTROPHILS # 4.7 10^3/uL (1.5-8.5); NEUTROPHILS % 57.4 % (36.0-66.0); PLATELET COUNT, AUTOMATED 365 10^3/uL (150-450); RED BLOOD COUNT 3.02 10^6/uL (4.30-6.10); WHITE BLOOD COUNT 8.2 10^3/uL (4.0-10.0)
[2019-08-09] MEDS: AMPICILLIN SOD 2 GM in D5W MINI-BAG PLUS 100 ML IV SCH ×4 (06:11→23:20)
[2019-08-09] MEDS: HEPARIN SOD (PORCINE) 5000UNITS/ML VIAL (J1644 PER 1000UNITS) SQ SCH ×3 (06:11→21:02)
[2019-08-09 06:36] LABS: CALCIUM LEVEL 8.2 MG/DL (8.8-10.2); CREATININE FOR GFR 1.31 MG/DL (0.70-1.30); GLOMERULAR FILTRATION RATE 55.4 (>35); POTASSIUM SERUM 4.9 MEQ/L (3.5-5.1)
[2019-08-09] MEDS: VALPROIC ACID 250MG/5ML SOL ORAL SYRINGE *DRAW UP EXACT DOSE PO SCH ×2 (09:45→20:05)
[2019-08-09] MEDS: NYSTATIN 100,000 UNITS/GM TOPICAL PWD 15 GM TOP SCH ×2 (09:45→20:06)
[2019-08-09] MEDS: CETIRIZINE (ZyrTEC) 10 MG TAB PO SCH (09:45)
[2019-08-09 14:00] VITALS: BP 136/61
--- NOTE | 2019-08-09 17:02 | IPNPDOC ---
Date Seen The patient was seen on 08/09/19. Progress Note SUBJECTIVE: No acute events overnight. Pleasantly confused with no acute complaints this AM. Denies SOB, chest pain, lower ext pain, n/v. OBJECTIVE: VS: Please see below PHYSICAL EXAMINATION: CONSTITUTIONAL: In bedside chair, pleasantly confused. EYES: PERRLA, EOM intact HENT, MOUTH: Normocephalic, atraumatic, moist mucous membranes NECK: SUPPLE, no JVD, no lymphadenopathy, no carotid bruit CV: Regular rate and rhythm, S1S2 normal, no murmurs/rubs/gallops RESPIRATORY: mild crackles in LLL, no rales/rhonchi/wheezes GI: BS positive in 4 quadrants, soft, nontender, nondistended, no rebound or guarding, no organomegaly : Deferred MUSCULOSKELETAL: Warm extremities. Area of amputation appears clean, nonsuppurative, no foul smell, healing scabbed area clean. Contracted lower ext bilaterally. No cyanosis, clubbing, swelling, joint deformity, extremity edema INTEGUMENTARY: Intact, no rashes, no lesions, no erythema NEUROLOGIC: Cranial Nerves II-XII are intact, no focal deficits CURRENT MEDICATIONS: Please see below LABORATORY DATA: Please see below IMAGING: No new imaging. 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 PLAN: (1) Elevated CRP, ESR. Recent UA neg. Not suspecting new event with aspiration, afebrile. Not suspecting this is caused by the foot, as foot appears clean with no erythema or increased swelling. Monitor closely, c/w abx. (3) Distal dried gangrene, with recent third metatarsal head excision and wound debridement, excisional type, including subcutaneous tissue, tendon and bone 02/17. 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 Not vascular candidate for intervention/surgery. The patient is Pravin lift and turn every hour. Wound care. Awaiting long-term placement. Podiatry, ID following. (4) Chronic osteomyelitis. CRP elevated, WBC wnl. Positive enterococcus and wound cultures on ampicillin as per sensitivities. Pressure ulcers in bilateral heels. Boots are in place. Treatment as above under problem #2. C/w Ampicillin 2 gm Q6 hrs until 08/23/19. ID following. (5) BPH, chronic. Continue present medications (6) Dementia, chronic. Continue present medications (7) HTN, chronic. Continue present medications (8) DVT px- Enoxaparin. DISPOSITION: C/w treatment above. Awaiting placement to SNF. Podiatry and ID following. VS, I&O, 24H, Fishbone Vital Signs/I&O Vital Signs Date Time Temp Pulse Resp B/P (MAP) Pulse Ox O2 Delivery O2 Flow Rate FiO2 08/09/19 14:00 97.4 70 19 136/61 (86) 96 Room Air I&O- Last 24 Hours up to 6 AM 08/09/19 06:00 Intake Total 1200 ml Output Total 200 ml Balance 1000 ml Laboratory Data 24H LABS Laboratory Tests 2 08/09/19 05:27: Immature Granulocyte % (Auto) 0.9, Neutrophils (%) (Auto) 57.4, Lymphocytes (%) (Auto) 24.2, Monocytes (%) (Auto) 12.6H, Eosinophils (%) (Auto) 4.3H, Basophils (%) (Auto) 0.6, Neutrophils # (Auto) 4.7, Lymphocytes # (Auto) 2.0, Monocytes # (Auto) 1.0H, Eosinophils # (Auto) 0.4, Basophils # (Auto) 0.1, Nucleated Red Blood Cells % (auto) 0.0, Anion Gap 5L, Glomerular Filtration Rate 55.4, Calcium Level 8.2L CBC/BMP Laboratory Tests 08/09/19 05:27 Current Medications Current Medications Medications (Trade) Dose Ordered Sig/Hubert Route PRN Reason Start Time Stop Time Status Last Admin Dose Admin Acetaminophen (Tylenol Tab) 650 mg Q4H PRN PO PAIN OR FEVER 02/12/19 02:30 08/08/19 22:22 Amlodipine Besylate (Norvasc) 2.5 mg BID PO 07/12/19 02:30 07/12/19 10:15 DC 07/12/19 08:17 Amlodipine Besylate (Norvasc) 2.5 mg DAILY PO 08/07/19 09:00 Amlodipine Besylate (Norvasc) 5 mg BID PO 02/21/19 09:00 02/21/19 08:44 DC Amlodipine Besylate (Norvasc) 5 mg DAILY PO 05/10/19 09:00 05/10/19 09:32 DC Amlodipine Besylate (Norvasc) 5 mg QHS PO 04/20/19 21:00 04/29/19 14:56 DC 04/28/19 20:47 Amlodipine Besylate (Norvasc) 10 mg DAILY PO 05/03/19 09:00 05/09/19 09:24 DC 05/07/19 08:07 Amlodipine Besylate (Norvasc) 10 mg DAILY PO 02/12/19 09:00 02/13/19 09:42 DC 02/13/19 08:52 Amlodipine Besylate (Norvasc) 10 mg DAILY PO 02/13/19 09:00 02/13/19 09:45 DC Amlodipine Besylate (Norvasc) 10 mg DAILY PO 02/14/19 09:00 02/21/19 06:46 DC 02/19/19 08:33 Amlodipine Besylate (Norvasc) 10 mg QHS PO 02/21/19 21:00 04/20/19 15:21 DC 04/19/19 20:12 Amoxicillin/ Clavulanate Potassium (Augmentin) 500 mg BID PO 05/01/19 10:00 05/09/19 07:52 DC 05/08/19 19:47 Amoxicillin/ Clavulanate Potassium (Augmentin) 500 mg BID PO 03/07/19 21:00 03/12/19 10:33 DC 03/12/19 09:04 Amoxicillin/ Clavulanate Potassium (Augmentin) 875 mg BID PO 05/01/19 21:00 UNV Amoxicillin/ Clavulanate Potassium (Augmentin) 875 mg BID PO 02/15/19 09:00 02/22/19 08:59 DC 02/21/19 20:29 Ampicillin Sodium 2 gm/Dextrose 100 ml @ 200 mls/hr Q6H IV 07/20/19 17:00 07/27/19 13:44 DC 07/27/19 04:31 Ampicillin Sodium 2 gm/Dextrose 100 ml @ 200 mls/hr Q6H IV 07/27/19 14:00 07/28/19 10:39 DC 07/28/19 09:24 Ampicillin Sodium 2 gm/Dextrose 100 ml @ 200 mls/hr Q6H IV 5/6/20 12:00 08/23/19 11:59 08/09/19 11:25 Ampicillin Sodium/ Sulbactam Sodium 1.5 gm/Dextrose 50 ml @ 100 mls/hr Q6H IV 02/12/19 05:00 02/15/19 09:27 DC 02/15/19 05:19 Ampicillin Sodium/ Sulbactam Sodium 3 gm/Dextrose 100 ml @ 200 mls/hr Q12H IV 03/06/19 23:00 03/07/19 17:17 DC 03/07/19 11:39 Atenolol (Tenormin) 12.5 mg BID PO 02/13/19 09:00 02/15/19 14:32 DC 02/14/19 20:57 Azithromycin (Zithromax Tab) 500 mg DAILY PO 03/07/19 09:00 03/13/19 14:18 DC 03/13/19 10:03 Azithromycin 500 mg/IV Miscellaneous Supplies 1 each/ Dextrose 255 ml @ 255 mls/hr Q24H IV 03/06/19 00:00 03/07/19 17:17 DC 03/07/19 00:44 Bisacodyl (Dulcolax Suppository) 10 mg Q2DP PRN MA CONSTIPATION 02/12/19 18:45 02/13/19 14:23 Cephalexin Monohydrate (Keflex) 500 mg BID PO 05/25/19 09:00 06/07/19 23:59 DC 06/07/19 21:47 Cephalexin Monohydrate (Keflex) 500 mg Q12H PO 06/29/19 09:00 07/08/19 08:59 DC 07/07/19 20:39 Cetirizine HCl (ZyrTEC) 10 mg DAILY PO 02/14/19 09:00 08/09/19 09:45 Cyanocobalamin (Vitamin B12) 500 mcg QHS PO 02/12/19 21:00 08/08/19 22:21 Dextrose/Lactated Ringer's 1,000 ml @ 40 mls/hr Q24H IV 02/12/19 02:30 02/12/19 17:11 DC 02/12/19 03:12 Divalproex Sodium (Depakote Er) 500 mg QHS PO 02/12/19 21:00 08/01/19 13:32 DC 07/31/19 21:04 Docusate Sodium (Colace) 100 mg Q12HP PRN PO CONSTIPATION 05/03/19 11:45 07/19/19 20:51 Donepezil HCl (AriCEPT) 10 mg QHS PO 02/12/19 21:00 08/08/19 22:20 Enoxaparin Sodium (Lovenox) 30 mg DAILY SC 02/15/19 09:00 07/25/19 08:03 DC 07/24/19 08:46 Furosemide (LASIX injection) 40 mg DAILY IV 07/26/19 09:00 07/27/19 13:01 DC 07/27/19 10:21 Guaifenesin (Mucinex Tab Er) 600 mg BID PO 07/25/19 21:00 07/25/19 17:37 DC Guaifenesin (Robitussin) 10 ml Q4HP PRN PO COUGH 07/25/19 17:45 07/25/19 18:41 Heparin Sodium (Porcine) (Heparin) 5,000 units Q8H SQ 07/25/19 14:00 08/09/19 13:06 Home Med (Med Rec Complete!) ASDIRECTED XX 02/12/19 04:00 02/12/19 04:05 DC Hydralazine HCl (Apresoline) 10 mg Q4H IV 02/12/19 14:00 02/13/19 07:26 DC 02/13/19 05:23 Hydralazine HCl (Apresoline) 20 mg Q6H PO 02/12/19 12:00 02/12/19 13:20 DC Hydralazine HCl (Apresoline) 25 mg QID PO 02/13/19 09:00 02/17/19 12:49 DC 02/17/19 11:08 Isosorbide Dinitrate (Isordil) 20 mg Q6H PO 02/13/19 18:00 02/17/19 12:49 DC 02/17/19 11:06 Labetalol HCl (Normodyne, Trandate) 2 mg Q6HP PRN IV BP > 160/100 02/12/19 03:45 02/12/19 12:21 DC Lactated Ringer's 1,000 ml @ 75 mls/hr [id number] IV 04/28/19 08:15 04/29/19 08:06 DC 04/28/19 20:48 Lactated Ringer's 1,000 ml @ 75 mls/hr [id number] IV 04/29/19 14:30 05/01/19 07:51 DC 04/30/19 19:00 Levofloxacin (Levaquin) 250 mg Q24H PO 05/30/19 22:00 06/12/19 23:59 DC 06/12/19 21:39 Levofloxacin (Levaquin) 750 mg Q48H PO 07/01/19 06:00 07/09/19 10:00 DC 07/09/19 10:07 Levofloxacin (Levaquin) 750 mg Q48H PO 07/26/19 18:00 07/27/19 13:05 DC 07/26/19 19:46 Lisinopril (Prinivil) 5 mg DAILY PO 07/12/19 02:30 07/12/19 10:15 DC 07/12/19 02:57 Lisinopril (Prinivil) 5 mg QHS PO 07/15/19 21:00 07/25/19 08:03 DC 07/24/19 22:18 Lisinopril (Prinivil) 5 mg QHS PO 02/21/19 21:00 04/29/19 14:56 DC 04/28/19 20:46 Lisinopril (Prinivil) 10 mg DAILY PO 05/03/19 09:00 05/09/19 09:24 DC 05/07/19 08:07 Lisinopril (Prinivil) 10 mg QHS PO 05/09/19 21:00 07/09/19 09:01 DC 07/08/19 21:36 Lisinopril (Prinivil) 10 mg QHS PO 02/17/19 21:00 02/21/19 06:43 DC 02/20/19 20:31 Lisinopril (Prinivil) 10 mg QHS PO 02/21/19 21:00 02/21/19 08:44 DC Lisinopril (Prinivil) 20 mg QHS PO 02/21/19 21:00 02/21/19 06:46 DC Magnesium Hydroxide (Milk Of Magnesia) 30 ml DAILYPRN PRN PO CONSTIPATION 02/12/19 19:00 02/13/19 08:57 Metronidazole (Flagyl) 500 mg Q8H PO 05/01/19 14:00 05/03/19 10:32 DC 05/03/19 06:56 Miscellaneous (Unresolved Clarification Entry) SEE LABEL COMMENTS DAILY XX 04/15/19 09:00 Cancel Miscellaneous (Unresolved Clarification Entry) SEE LABEL COMMENTS DAILY XX 04/21/19 09:00 04/21/19 16:34 DC Miscellaneous (Unresolved Clarification Entry) SEE LABEL COMMENTS DAILY XX 05/17/19 09:00 05/17/19 11:43 DC Miscellaneous (Unresolved Clarification Entry) SEE LABEL COMMENTS DAILY XX 05/23/19 09:00 05/24/19 12:03 DC Miscellaneous (Unresolved Clarification Entry) SEE LABEL COMMENTS DAILY XX 05/05/19 09:00 05/05/19 11:26 DC Miscellaneous (Unresolved Clarification Entry) SEE LABEL COMMENTS DAILY XX 06/18/19 09:00 06/20/19 08:54 DC Miscellaneous (Unresolved Clarification Entry) SEE LABEL COMMENTS DAILY XX 06/25/19 09:00 06/25/19 11:30 DC Miscellaneous (Unresolved Clarification Entry) SEE LABEL COMMENTS DAILY XX 07/11/19 09:00 07/11/19 11:57 DC Miscellaneous (Unresolved Clarification Entry) SEE LABEL COMMENTS DAILY XX 02/21/19 09:00 02/22/19 06:40 DC Miscellaneous (Unresolved Clarification Entry) SEE LABEL COMMENTS DAILY XX 02/22/19 09:00 02/22/19 12:30 DC Miscellaneous (Unresolved Clarification Entry) SEE LABEL COMMENTS DAILY XX 02/26/19 09:00 02/26/19 12:38 DC Miscellaneous (Unresolved Clarification Entry) SEE LABEL COMMENTS DAILY XX 03/15/19 09:00 03/15/19 10:31 DC Miscellaneous (Unresolved Clarification Entry) SEE LABEL COMMENTS DAILY XX 03/25/19 09:00 03/25/19 12:55 DC Nitroglycerin (Nitrobid 2%) HOLD FOR SBP<140 1 INCH Q4H TOP 02/12/19 13:00 02/13/19 09:28 DC 02/13/19 08:53 Nystatin (Mycostatin Powder, Nystop) groin BID TOP 06/10/19 09:00 08/09/19 09:45 Piperacillin Sod/ Tazobactam Sod 2.25 gm/Dextrose 50 ml @ 100 mls/hr Q6H IV 07/09/19 14:00 07/12/19 08:42 DC 07/12/19 08:16 Piperacillin Sod/ Tazobactam Sod 2.25 gm/Dextrose 50 ml @ 100 mls/hr Q6H IV 07/28/19 12:00 08/04/19 08:00 DC 08/04/19 05:19 Piperacillin Sod/ Tazobactam Sod 3.375 gm/Dextrose 50 ml @ 50 mls/hr Q6H IV 04/29/19 15:00 05/01/19 07:51 DC 05/01/19 03:19 Piperacillin Sod/ Tazobactam Sod 3.375 gm/Dextrose 50 ml @ 50 mls/hr Q6H IV 07/09/19 14:00 07/09/19 13:52 DC Piperacillin Sod/ Tazobactam Sod 3.375 gm/Dextrose 50 ml @ 50 mls/hr Q6H IV 07/28/19 10:45 07/28/19 10:45 DC Sodium Biphosphate/ Sodium Phosphate (Fleet Enema) 1 ea Q3DP PRN MA CONSTIPATION 02/12/19 19:00 Sodium Chloride 1,000 ml @ 60 mls/hr [id number] IV 07/25/19 08:15 07/26/19 08:40 DC 07/25/19 16:28 Sodium Chloride 1,000 ml @ 80 mls/hr [id number] IV 07/09/19 09:00 07/11/19 14:05 DC 07/11/19 08:49 Sodium Chloride 1,000 ml @ 80 mls/hr [id number] IV 07/24/19 09:00 07/25/19 05:45 DC 07/24/19 22:17 Sodium Chloride ([place]) 2 spray Q2HP PRN NA NASAL DRYNESS 02/13/19 09:30 Sodium Chloride ([place]al [place]) 2 spray TID NA 02/13/19 09:00 03/18/19 09:01 DC 03/17/19 21:33 Tamsulosin HCl (Flomax) 0.4 mg QHS PO 02/12/19 21:00 08/08/19 22:21 Trazodone HCl (Desyrel) 25 mg QHSP PRN PO INSOMNIA 02/21/19 06:45 04/23/19 01:42 Valproic Acid (Depakene Solution) 250 mg BID PO 08/01/19 21:00 08/09/19 09:45 Vancomycin HCl 500 mg/Dextrose 110 ml @ 110 mls/hr Q24H IV 07/19/19 12:00 07/20/19 12:22 DC 07/19/19 12:13 Vancomycin HCl 500 mg/IV Miscellaneous Supplies 10 ml @ 10 mls/hr Q8H IV 07/12/19 08:45 07/12/19 09:07 DC Vancomycin HCl 750 mg/IV Miscellaneous Supplies 1 each/ Dextrose 275 ml @ 275 mls/hr Q12H IV 02/12/19 02:30 02/12/19 05:32 DC Vancomycin HCl 750 mg/IV Miscellaneous Supplies 1 each/ Dextrose 275 ml @ 275 mls/hr Q24H IV 04/29/19 16:00 04/30/19 12:06 DC 04/29/19 16:50 Vancomycin HCl 750 mg/IV Miscellaneous Supplies 1 each/ Dextrose 275 ml @ 275 mls/hr Q24H IV 07/16/19 10:00 07/19/19 09:32 DC 07/18/19 09:57 Vancomycin HCl 750 mg/IV Miscellaneous Supplies 1 each/ Dextrose 275 ml @ 275 mls/hr Q24H IV 07/27/19 09:00 07/27/19 13:01 DC 07/27/19 10:21 Vancomycin HCl 750 mg/IV Miscellaneous Supplies 1 each/ Dextrose 275 ml @ 275 mls/hr Q36H IV 07/20/19 19:00 07/20/19 14:57 DC Vancomycin HCl 1000 mg/IV Miscellaneous Supplies 1 each/ Dextrose 270 ml @ 270 mls/hr Q18H IV 02/12/19 06:00 02/15/19 06:02 DC 02/14/19 11:20 Vancomycin HCl 1000 mg/IV Miscellaneous Supplies 1 each/ Dextrose 270 ml @ 270 mls/hr Q24H IV 07/13/19 07:00 07/16/19 06:45 DC 07/15/19 07:06 Vancomycin HCl 1000 mg/IV Miscellaneous Supplies 1 each/ Dextrose 270 ml @ 270 mls/hr Q24H IV 02/15/19 12:00 02/15/19 09:27 DC Vitamin D (Vitamin D) 1,000 units QPM PO 02/12/19 21:00 08/08/19 22:21 Allergies Coded Allergies: No Known Allergies (Unverified , 12/09/18) Radha Delgado MD August 09, 2019 17:02
[2019-08-09 20:00] VITALS: BP 178/66
[2019-08-09] MEDS: TAMSULOSIN 0.4 MG CAP PO SCH (20:05)
[2019-08-09] MEDS: CYANOCOBALAMIN 500 MCG TAB PO SCH (20:05)
[2019-08-09] MEDS: VITAMIN D 1,000 INTERNATIONAL UNITS TABLET PO SCH (20:05)
[2019-08-09] MEDS: DONEPEZIL 5 MG TAB PO SCH (20:05)
[2019-08-10] MEDS: HEPARIN SOD (PORCINE) 5000UNITS/ML VIAL (J1644 PER 1000UNITS) SQ SCH ×4 (05:12→21:08)
[2019-08-10] MEDS: AMPICILLIN SOD 2 GM in D5W MINI-BAG PLUS 100 ML IV SCH ×4 (05:12→23:30)
[2019-08-10 06:00] VITALS: BP 164/76
[2019-08-10] MEDS: VALPROIC ACID 250MG/5ML SOL ORAL SYRINGE *DRAW UP EXACT DOSE PO SCH ×2 (09:40→20:27)
[2019-08-10] MEDS: CETIRIZINE (ZyrTEC) 10 MG TAB PO SCH (09:40)
[2019-08-10] MEDS: NYSTATIN 100,000 UNITS/GM TOPICAL PWD 15 GM TOP SCH ×2 (09:43→20:28)
--- NOTE | 2019-08-10 11:27 | IPNPDOC ---
Subjective Date Seen The patient was seen on 08/10/19. Subjective Chief Complaint/HPI Patient is comfortable in no distress. Offers no new complaints Constitutional: Denies: Chills, Fever, Malaise, Night Sweats, Weakness, Fatigue, Weight Loss, Lethargy, Other Eyes: Denies: Pain, Vision change, Conjunctivae inflammation, Eyelid inflammation, Redness, Other ENT: Denies: Head Aches, Ear Pain, Dysphagia, Sinus Congestion, Post Nasal Drip, Sore Throat, Epistaxis, Other Symptoms Pulmonary: Denies: Dyspnea, Cough, Pleuritic Chest Pain, Other Symptoms Cardiovascular: Denies: Chest Pain, Palpitations, Orthopnea, Paroxysmal Noc. Dyspnea, Edema, Lt Headedness, Other Symptoms Musculoskeletal: Denies: Neck Pain, Back Pain, Shoulder Pain, Arm Pain, Hand Pain, Leg Pain, Foot Pain, Joint Pain, Muscle Pain, Spasms, Other Symptoms Neurological: Denies: Weakness, Numbness, Incoordination, Change in speech, Confusion, Seizures, Other Symptoms Objective Physical Examination General Exam: Positive: Alert, Cooperative Neck Exam: Positive: Supple Chest Exam: Positive: Clear to auscultation, Normal air movement Heart Exam: Positive: Rate Normal, Normal S1, Normal S2 Abdomen Exam: Positive: Normal bowel sounds, Soft Male Exam: Positive: Normal Genital Exam Extremity Exam: Positive: Normal pulses, Other (. Dressing at the right foot noted) Skin Exam: Positive: Nl turgor and temperature Assessment /Plan Problems (1) Gangrene of toe of right foot Status: Acute Problem Text: Distal dried gangrene, with recent third metatarsal head excision and wound debridement, excisional type, including subcutaneous tissue, tendon and bone 07/10/19. 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 Positive enterococcus and wound cultures on ampicillin as per sensitivities for chronic osteomyelitis Pressure ulcers in bilateral heels. Boots are in place. The patient is Pravin lift and turn every hour. Wound care. Patient will eventually need below-knee amputation at some point Continue ampicillin 2 g IV every 6 hours until 08/23/2019 A[address] placement (2) HTN (hypertension) Status: Chronic Problem Text: Continue present medications (3) BPH (benign prostatic hyperplasia) Status: Chronic Problem Text: Continue present medications (4) Dementia Status: Chronic Problem Text: Continue present medications (5) HCAP (healthcare-associated pneumonia) Status: Resolved Problem Text: Finished IV antibiotic course He is back on ampicillin for his chronic osteomyelitis until 08/23/2019 ID follow-up appreciated Plan/VTE VTE Prophylaxis Ordered?: Yes (lovenox 30 mg daily) VTE Exclusion Mechanical Proph: N/A:VTE Prophy Ordered VTE Exclusion Pharmacological: N/A:VTE Prophy Ordered VS, I&O, 24H, Fishbone Vital Signs/I&O Vital Signs Date Time Temp Pulse Resp B/P (MAP) Pulse Ox O2 Delivery O2 Flow Rate FiO2 08/10/19 09:00 55 140/58 08/10/19 06:00 98.0 20 96 08/09/19 14:00 Room Air I&O- Last 24 Hours up to 6 AM 08/10/19 05:59 Intake Total 495 ml Output Total 0 ml Balance 495 ml ALVERTO EDDY MD August 10, 2019 11:27
[2019-08-10 14:00] VITALS: BP 142/68
[2019-08-10] MEDS: DONEPEZIL 5 MG TAB PO SCH (20:27)
[2019-08-10] MEDS: TAMSULOSIN 0.4 MG CAP PO SCH (20:27)
[2019-08-10] MEDS: VITAMIN D 1,000 INTERNATIONAL UNITS TABLET PO SCH (20:27)
[2019-08-10] MEDS: CYANOCOBALAMIN 500 MCG TAB PO SCH (20:27)
[2019-08-10 22:00] VITALS: BP 178/64
[2019-08-11 06:00] VITALS: BP 176/60
[2019-08-11] MEDS: AMPICILLIN SOD 2 GM in D5W MINI-BAG PLUS 100 ML IV SCH ×4 (06:04→23:58)
[2019-08-11] MEDS: HEPARIN SOD (PORCINE) 5000UNITS/ML VIAL (J1644 PER 1000UNITS) SQ SCH ×3 (06:04→20:53)
[2019-08-11 06:09] LABS: BASO # 0.1 10^3/uL (0.0-0.2); BASO % 0.8 % (0.0-1.0); EOS # 0.4 10^3/uL (0.0-0.5); EOS % 5.4 % (0.0-3.0); HEMATOCRIT 30.7 % (42.0-52.0); HEMOGLOBIN 9.9 g/dl (13.5-17.5); LYMPH # 1.8 10^3/uL (1.5-5.0); LYMPH % 22.9 % (24.0-44.0); MEAN CORPUSCULAR HEMOGLOBIN 31.2 pg (27.0-33.0); MEAN CORPUSCULAR HGB CONC 32.2 g/dl (32.0-36.5); MEAN CORPUSCULAR VOLUME 96.8 fl (80.0-96.0); MONO % 12.3 % (0.0-5.0); NEUTROPHILS # 4.4 10^3/uL (1.5-8.5); NEUTROPHILS % 57.4 % (36.0-66.0); PLATELET COUNT, AUTOMATED 362 10^3/uL (150-450); RED BLOOD COUNT 3.17 10^6/uL (4.30-6.10); WHITE BLOOD COUNT 7.7 10^3/uL (4.0-10.0)
[2019-08-11 06:31] LABS: CALCIUM LEVEL 8.7 MG/DL (8.8-10.2); CREATININE FOR GFR 1.51 MG/DL (0.70-1.30); POTASSIUM SERUM 4.9 MEQ/L (3.5-5.1)
[2019-08-11] MEDS: CETIRIZINE (ZyrTEC) 10 MG TAB PO SCH (09:43)
[2019-08-11] MEDS: VALPROIC ACID 250MG/5ML SOL ORAL SYRINGE *DRAW UP EXACT DOSE PO SCH ×2 (09:43→20:52)
[2019-08-11] MEDS: NYSTATIN 100,000 UNITS/GM TOPICAL PWD 15 GM TOP SCH ×2 (09:44→20:52)
--- NOTE | 2019-08-11 10:10 | IPNPDOC ---
Subjective Date Seen The patient was seen on 08/11/19. Subjective Chief Complaint/HPI Patient is very comfortable today, in good spirits offers no new complaints General: Denies: ROS Unobtainable, Chills, Night Sweats, Fatigue, Malaise, Normal Appetite, Other Symptoms Constitutional: Denies: Chills, Fever, Malaise, Night Sweats, Weakness, Fatigue, Weight Loss, Lethargy, Other Pulmonary: Denies: Dyspnea, Cough, Pleuritic Chest Pain, Other Symptoms Cardiovascular: Denies: Chest Pain, Palpitations, Orthopnea, Paroxysmal Noc. Dyspnea, Edema, Lt Headedness, Other Symptoms Gastrointestinal: Denies: Nausea, Vomiting, Abdominal Pain, Diarrhea, Constipation, Melena, Hematochezia, Other Symptoms Musculoskeletal: Denies: Neck Pain, Back Pain, Shoulder Pain, Arm Pain, Hand Pain, Leg Pain, Foot Pain, Joint Pain, Muscle Pain, Spasms, Other Symptoms Neurological: Denies: Weakness, Numbness, Incoordination, Change in speech, Confusion, Seizures, Other Symptoms Objective Physical Examination General Exam: Positive: Alert, Cooperative Eye Exam: Positive: PERRLA, Conjunctiva & lids normal Neck Exam: Positive: Supple Chest Exam: Positive: Clear to auscultation, Normal air movement Heart Exam: Positive: Rate Normal, Normal S1, Normal S2 Abdomen Exam: Positive: Normal bowel sounds, Soft Male Exam: Positive: Normal Genital Exam Extremity Exam: Positive: Normal pulses, Other (. Dressing at the right foot noted) Skin Exam: Positive: Nl turgor and temperature Assessment /Plan Problems (1) Gangrene of toe of right foot Status: Acute Problem Text: Distal dried gangrene, with recent third metatarsal head excision and wound debridement, excisional type, including subcutaneous tissue, tendon and bone 07/10/19. 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 Positive enterococcus and wound cultures on ampicillin as per sensitivities for chronic osteomyelitis Pressure ulcers in bilateral heels. Boots are in place. The patient is Pravin lift and turn every hour. Wound care. Patient will eventually need below-knee amputation at some point Continue ampicillin 2 g IV every 6 hours until 08/23/2019 Patient is awaiting placement in a long-term facility (2) HTN (hypertension) Status: Chronic Problem Text: Continue present medications (3) BPH (benign prostatic hyperplasia) Status: Chronic Problem Text: Continue present medications (4) Dementia Status: Chronic Problem Text: Continue present medications (5) HCAP (healthcare-associated pneumonia) Status: Resolved Problem Text: Finished IV antibiotic course He is back on ampicillin for his chronic osteomyelitis until 08/23/2019 ID follow-up appreciated Plan/VTE VTE Prophylaxis Ordered?: Yes (lovenox 30 mg daily) VTE Exclusion Mechanical Proph: N/A:VTE Prophy Ordered VTE Exclusion Pharmacological: N/A:VTE Prophy Ordered VS, I&O, 24H, Fishbone Vital Signs/I&O Vital Signs Date Time Temp Pulse Resp B/P (MAP) Pulse Ox O2 Delivery O2 Flow Rate FiO2 08/11/19 09:44 71 131/64 08/11/19 06:00 97.7 18 94 08/10/19 14:00 Room Air I&O- Last 24 Hours up to 6 AM 08/11/19 06:00 Intake Total 880 ml Output Total 200 ml Balance 680 ml Laboratory Data 24H LABS Laboratory Tests 2 08/11/19 05:38: Immature Granulocyte % (Auto) 1.2, Neutrophils (%) (Auto) 57.4, Lymphocytes (%) (Auto) 22.9L, Monocytes (%) (Auto) 12.3H, Eosinophils (%) (Auto) 5.4H, Basophils (%) (Auto) 0.8, Neutrophils # (Auto) 4.4, Lymphocytes # (Auto) 1.8, Monocytes # (Auto) 1.0H, Eosinophils # (Auto) 0.4, Basophils # (Auto) 0.1, Nucleated Red Blood Cells % (auto) 0.0, Anion Gap 5L, Glomerular Filtration Rate 47.0, Calcium Level 8.7L CBC/BMP Laboratory Tests 08/11/19 05:38 ALVERTO EDDY MD August 11, 2019 10:10
--- NOTE | 2019-08-11 12:33 | IPN ---
DATE: 08/10/2019 Patient seen and examined. States there is no pain in the wound. Vitals are reviewed. He is afebrile. LABS: Most recent white blood cell count was 8.2. LOWER EXTREMITY EXAMINATION: Wound is inspected. There is no purulence or erythema coming from the wound. There actually is some bleeding tissue at the gangrenous portion proximal to the amputation site. Eschar is otherwise stable. ASSESSMENT: 84-year-old male with peripheral vascular disease status post toe amputations. PLAN: Continue current dressing changes.
[2019-08-11 14:00] VITALS: BP 121/61
[2019-08-11 20:20] VITALS: BP 180/70
[2019-08-11] MEDS: CYANOCOBALAMIN 500 MCG TAB PO SCH (20:52)
[2019-08-11] MEDS: VITAMIN D 1,000 INTERNATIONAL UNITS TABLET PO SCH (20:52)
[2019-08-11] MEDS: TAMSULOSIN 0.4 MG CAP PO SCH (20:52)
[2019-08-11] MEDS: DONEPEZIL 5 MG TAB PO SCH (20:54)
[2019-08-11 21:15] VITALS: BP 150/60
[2019-08-12] MEDS: HEPARIN SOD (PORCINE) 5000UNITS/ML VIAL (J1644 PER 1000UNITS) SQ SCH ×3 (05:01→21:05)
[2019-08-12] MEDS: AMPICILLIN SOD 2 GM in D5W MINI-BAG PLUS 100 ML IV SCH ×3 (05:03→18:45)
[2019-08-12 06:00] VITALS: BP 162/58
[2019-08-12] MEDS: VALPROIC ACID 250MG/5ML SOL ORAL SYRINGE *DRAW UP EXACT DOSE PO SCH ×2 (09:00→21:06)
--- NOTE | 2019-08-12 10:17 | IPNPDOC ---
Subjective Date Seen The patient was seen on 08/12/19. Subjective Chief Complaint/HPI Patient is comfortable in no distress. Offers no new complaints General: Denies: ROS Unobtainable, Chills, Night Sweats, Fatigue, Malaise, Normal Appetite, Other Symptoms Constitutional: Denies: Chills, Fever, Malaise, Night Sweats, Weakness, Fatigue, Weight Loss, Lethargy, Other Pulmonary: Denies: Dyspnea, Cough, Pleuritic Chest Pain, Other Symptoms Cardiovascular: Denies: Chest Pain, Palpitations, Orthopnea, Paroxysmal Noc. Dyspnea, Edema, Lt Headedness, Other Symptoms Gastrointestinal: Denies: Nausea, Vomiting, Abdominal Pain, Diarrhea, Constipation, Melena, Hematochezia, Other Symptoms Musculoskeletal: Denies: Neck Pain, Back Pain, Shoulder Pain, Arm Pain, Hand Pain, Leg Pain, Foot Pain, Joint Pain, Muscle Pain, Spasms, Other Symptoms Neurological: Denies: Weakness, Numbness, Incoordination, Change in speech, Confusion, Seizures, Other Symptoms Objective Physical Examination Eye Exam: Positive: PERRLA, Conjunctiva & lids normal Neck Exam: Positive: Supple Chest Exam: Positive: Clear to auscultation, Normal air movement Heart Exam: Positive: Rate Normal, Normal S1, Normal S2 Abdomen Exam: Positive: Normal bowel sounds, Soft Male Exam: Positive: Normal Genital Exam Extremity Exam: Positive: Normal pulses, Other (. Dressing at the right foot noted) Skin Exam: Positive: Nl turgor and temperature Assessment /Plan Problems (1) Gangrene of toe of right foot Status: Acute Problem Text: Distal dried gangrene, with recent third metatarsal head excision and wound debridement, excisional type, including subcutaneous tissue, tendon and bone 07/10/19. 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 Positive enterococcus and wound cultures on ampicillin as per sensitivities for chronic osteomyelitis Pressure ulcers in bilateral heels. Boots are in place. The patient is Pravin lift and turn every hour. Patient is clinically stable at the present time. Continue present wound care Continue ampicillin 2 g IV every 6 hours until 08/23/2019 Patient is awaiting placement in a assisted facility (2) HTN (hypertension) Status: Chronic Problem Text: Continue present medications (3) BPH (benign prostatic hyperplasia) Status: Chronic Problem Text: Continue present medications (4) Dementia Status: Chronic Problem Text: Continue present medications (5) HCAP (healthcare-associated pneumonia) Status: Resolved Problem Text: Finished IV antibiotic course He is back on ampicillin for his chronic osteomyelitis until 08/23/2019 ID follow-up appreciated Plan/VTE VTE Prophylaxis Ordered?: Yes (lovenox 30 mg daily) VTE Exclusion Mechanical Proph: N/A:VTE Prophy Ordered VTE Exclusion Pharmacological: N/A:VTE Prophy Ordered VS, I&O, 24H, Fishbone Vital Signs/I&O Vital Signs Date Time Temp Pulse Resp B/P (MAP) Pulse Ox O2 Delivery O2 Flow Rate FiO2 08/12/19 06:00 97.1 60 19 162/58 (92) 93 Room Air I&O- Last 24 Hours up to 6 AM 08/12/19 06:00 Intake Total 1040 ml Output Total 0 ml Balance 1040 ml ALVERTO EDDY MD August 12, 2019 10:17
[2019-08-12] MEDS: CETIRIZINE (ZyrTEC) 10 MG TAB PO SCH (11:02)
[2019-08-12] MEDS: NYSTATIN 100,000 UNITS/GM TOPICAL PWD 15 GM TOP SCH ×2 (11:02→21:06)
[2019-08-12 14:00] VITALS: BP 118/76
[2019-08-12] MEDS: DONEPEZIL 5 MG TAB PO SCH (21:05)
[2019-08-12] MEDS: TAMSULOSIN 0.4 MG CAP PO SCH (21:05)
[2019-08-12] MEDS: CYANOCOBALAMIN 500 MCG TAB PO SCH (21:05)
[2019-08-12] MEDS: VITAMIN D 1,000 INTERNATIONAL UNITS TABLET PO SCH (21:05)
[2019-08-12 22:00] VITALS: BP 138/74
[2019-08-13] MEDS: AMPICILLIN SOD 2 GM in D5W MINI-BAG PLUS 100 ML IV SCH ×5 (00:06→23:07)
[2019-08-13] MEDS: HEPARIN SOD (PORCINE) 5000UNITS/ML VIAL (J1644 PER 1000UNITS) SQ SCH ×3 (05:32→23:06)
[2019-08-13 06:00] VITALS: BP 150/72
[2019-08-13 06:43] LABS: BASO % 0.6 % (0.0-1.0); EOS # 0.4 10^3/uL (0.0-0.5); EOS % 5.4 % (0.0-3.0); HEMATOCRIT 29.5 % (42.0-52.0); HEMOGLOBIN 9.6 g/dl (13.5-17.5); LYMPH # 1.5 10^3/uL (1.5-5.0); LYMPH % 21.8 % (24.0-44.0); MEAN CORPUSCULAR HEMOGLOBIN 31.6 pg (27.0-33.0); MEAN CORPUSCULAR HGB CONC 32.5 g/dl (32.0-36.5); MONO # 0.8 10^3/uL (0.0-0.8); NEUTROPHILS # 4.1 10^3/uL (1.5-8.5); NEUTROPHILS % 60.3 % (36.0-66.0); PLATELET COUNT, AUTOMATED 318 10^3/uL (150-450); RED BLOOD COUNT 3.04 10^6/uL (4.30-6.10); WHITE BLOOD COUNT 6.8 10^3/uL (4.0-10.0)
[2019-08-13 06:54] LABS: CALCIUM LEVEL 8.2 MG/DL (8.8-10.2); CREATININE FOR GFR 1.37 MG/DL (0.70-1.30); GLOMERULAR FILTRATION RATE 52.6 (>35); POTASSIUM SERUM 3.8 MEQ/L (3.5-5.1)
[2019-08-13] MEDS: NYSTATIN 100,000 UNITS/GM TOPICAL PWD 15 GM TOP SCH ×2 (08:42→20:20)
[2019-08-13] MEDS: CETIRIZINE (ZyrTEC) 10 MG TAB PO SCH (08:42)
--- NOTE | 2019-08-13 10:25 | IPNPDOC ---
Subjective Date Seen The patient was seen on 08/13/19. Subjective Chief Complaint/HPI No new complaints General: Denies: ROS Unobtainable, Chills, Night Sweats, Fatigue, Malaise, Normal Appetite, Other Symptoms Constitutional: Denies: Chills, Fever, Malaise, Night Sweats, Weakness, Fati yoko, Weight Loss, Lethargy, Other Pulmonary: Denies: Dyspnea, Cough, Pleuritic Chest Pain, Other Symptoms Cardiovascular: Denies: Chest Pain, Palpitations, Orthopnea, Paroxysmal Noc. Dyspnea, Edema, Lt Headedness, Other Symptoms Gastrointestinal: Denies: Nausea, Vomiting, Abdominal Pain, Diarrhea, Constipation, Melena, Hematochezia, Other Symptoms Musculoskeletal: Denies: Neck Pain, Back Pain, Shoulder Pain, Arm Pain, Hand Pain, Leg Pain, Foot Pain, Joint Pain, Muscle Pain, Spasms, Other Symptoms Neurological: Denies: Weakness, Numbness, Incoordination, Change in speech, Confusion, Seizures, Other Symptoms Objective Physical Examination Eye Exam: Positive: PERRLA, Conjunctiva & lids normal Neck Exam: Positive: Supple Chest Exam: Positive: Clear to auscultation, Normal air movement Heart Exam: Positive: Rate Normal, Normal S1, Normal S2 Abdomen Exam: Positive: Normal bowel sounds, Soft Male Exam: Positive: Normal Genital Exam Extremity Exam: Positive: Normal pulses, Other (. Dressing at the right foot noted) Skin Exam: Positive: Nl turgor and temperature Assessment /Plan Problems (1) Gangrene of toe of right foot Status: Acute Problem Text: Distal dried gangrene, with recent third metatarsal head excision and wound debridement, excisional type, including subcutaneous tissue, tendon and bone 07/10/19. 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 Positive enterococcus and wound cultures on ampicillin as per sensitivities for chronic osteomyelitis Pressure ulcers in bilateral heels. Boots are in place. The patient is Pravin lift and turn every hour. Patient is afebrile, asymptomatic, in no apparent distress. Continue present wound care Continue ampicillin 2 g IV every 6 hours until 08/23/2019 Patient is awaiting placement in a senior care facility (2) HTN (hypertension) Status: Chronic Problem Text: Continue present medications (3) BPH (benign prostatic hyperplasia) Status: Chronic Problem Text: Continue present medications (4) Dementia Status: Chronic Problem Text: Continue present medications (5) HCAP (healthcare-associated pneumonia) Status: Resolved Problem Text: Finished IV antibiotic course He is back on ampicillin for his chronic osteomyelitis until 08/23/2019 ID follow-up appreciated Plan/VTE VTE Prophylaxis Ordered?: Yes (lovenox 30 mg daily) VTE Exclusion Mechanical Proph: N/A:VTE Prophy Ordered VTE Exclusion Pharmacological: N/A:VTE Prophy Ordered VS, I&O, 24H, Fishbone Vital Signs/I&O Vital Signs Date Time Temp Pulse Resp B/P (MAP) Pulse Ox O2 Delivery O2 Flow Rate FiO2 08/13/19 08:42 51 155/69 08/13/19 06:00 98.2 16 95 Room Air I&O- Last 24 Hours up to 6 AM 08/13/19 06:00 Intake Total 590 ml Output Total 150 ml Balance 440 ml Laboratory Data 24H LABS Laboratory Tests 2 08/13/19 06:05: Immature Granulocyte % (Auto) 0.9, Neutrophils (%) (Auto) 60.3, Lymphocytes (%) (Auto) 21.8L, Monocytes (%) (Auto) 11.0H, Eosinophils (%) (Auto) 5.4H, Basophils (%) (Auto) 0.6, Neutrophils # (Auto) 4.1, Lymphocytes # (Auto) 1.5, Monocytes # (Auto) 0.8, Eosinophils # (Auto) 0.4, Basophils # (Auto) 0.0, Nucleated Red Blood Cells % (auto) 0.0, Anion Gap 8, Glomerular Filtration Rate 52.6, Calcium Level 8.2L CBC/BMP Laboratory Tests 08/13/19 06:05 ALVERTO EDDY MD August 13, 2019 10:25
[2019-08-13 13:09] LABS: C REACTIVE PROTEIN QUANTITATIV 3.75 MG/DL (0.00-0.30)
[2019-08-13 14:00] VITALS: BP 136/58
[2019-08-13] MEDS: VITAMIN D 1,000 INTERNATIONAL UNITS TABLET PO SCH (20:20)
[2019-08-13] MEDS: TAMSULOSIN 0.4 MG CAP PO SCH (20:20)
[2019-08-13] MEDS: CYANOCOBALAMIN 500 MCG TAB PO SCH (20:20)
[2019-08-13] MEDS: DONEPEZIL 5 MG TAB PO SCH (20:20)
--- NOTE | 2019-08-13 21:39 | IPN ---
DATE: 08/13/2019 Cristian is doing well. He was taking a nap this morning and was a little irritable. He has had no fever or chills. No nausea, vomiting or diarrhea. On physical exam, temperature is 98.2, pulse 59, respirations 16, blood pressure 150/72, oxygen saturation (O2 sat) 95% on room air. Right foot with no edema. He has contractures. He has an open ulcer measuring 1.5 x 1 cm, 1 cm depth with good granulation tissue. There is a no purulent discharge on the dressing. Amputation of 4th and 5th toe. More medially there is another ulcer with a dry scab measuring 3 x 1.5 cm without any surrounding erythema. MEDICATIONS: - ampicillin 2 grams IV every 6 hours with end of treatment date planned for 08/23/2019. LABORATORY DATA: White count is 6.8, hemoglobin 9.6, hematocrit 29.5, platelets 318, 60% neutrophils, 21% lymphocytes, 11% monocytes. Sodium 138, potassium 3.8, Chloride 104, bicarbonate 26, BUN 18, creatinine 1.37, glucose 89, calcium 8.2. Last CRP was done on 08/08/2019 and was 3.68. IMPRESSION: 1. Chronic osteomyelitis of the right foot, status post amputation of fourth and fifth toe. Culture positive for Enterococcus (E.) faecalis, currently on IV ampicillin with end of treatment date being August 23, 2019, total of 6 weeks of IV antibiotics. 2. History of aspiration pneumonitis, finish 7 days of Zosyn. Doing well with no shortness of breath or hypoxia. PLAN: Discontinue IV ampicillin on 08/23/2019. Repeat CRP today.
[2019-08-13 22:00] VITALS: BP 162/60
[2019-08-14] MEDS: AMPICILLIN SOD 2 GM in D5W MINI-BAG PLUS 100 ML IV SCH ×4 (05:37→23:07)
[2019-08-14] MEDS: HEPARIN SOD (PORCINE) 5000UNITS/ML VIAL (J1644 PER 1000UNITS) SQ SCH ×4 (05:38→23:06)
[2019-08-14 06:00] VITALS: BP 172/60
[2019-08-14] MEDS: amLODIPine 5 MG TAB PO SCH (08:17)
[2019-08-14] MEDS: CETIRIZINE (ZyrTEC) 10 MG TAB PO SCH (08:17)
[2019-08-14] MEDS: NYSTATIN 100,000 UNITS/GM TOPICAL PWD 15 GM TOP SCH ×2 (08:18→19:50)
--- NOTE | 2019-08-14 11:11 | IPNPDOC ---
Subjective Date Seen The patient was seen on 08/14/19. Subjective Chief Complaint/HPI Patient is comfortable in no distress. Offers no new complaints General: Denies: ROS Unobtainable, Chills, Night Sweats, Fatigue, Malaise, Normal Appetite, Other Symptoms Pulmonary: Denies: Dyspnea, Cough, Pleuritic Chest Pain, Other Symptoms Cardiovascular: Denies: Chest Pain, Palpitations, Orthopnea, Paroxysmal Noc. Dyspnea, Edema, Lt Headedness, Other Symptoms Gastrointestinal: Denies: Nausea, Vomiting, Abdominal Pain, Diarrhea, Constipation, Melena, Hematochezia, Other Symptoms Musculoskeletal: Denies: Neck Pain, Back Pain, Shoulder Pain, Arm Pain, Hand Pain, Leg Pain, Foot Pain, Joint Pain, Muscle Pain, Spasms, Other Symptoms Objective Physical Examination Eye Exam: Positive: PERRLA, Conjunctiva & lids normal Neck Exam: Positive: Supple Chest Exam: Positive: Clear to auscultation, Normal air movement Heart Exam: Positive: Rate Normal, Normal S1, Normal S2 Abdomen Exam: Positive: Normal bowel sounds, Soft Male Exam: Positive: Normal Genital Exam Extremity Exam: Positive: Normal pulses, Other (. Dressing at the right foot noted) Skin Exam: Positive: Nl turgor and temperature Assessment /Plan Problems (1) Gangrene of toe of right foot Status: Acute Problem Text: Distal dried gangrene, with recent third metatarsal head excision and wound debridement, excisional type, including subcutaneous tissue, tendon and bone 07/10/19. 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 Positive enterococcus and wound cultures on ampicillin as per sensitivities for chronic osteomyelitis Pressure ulcers in bilateral heels. Boots are in place. The patient is Pravin lift and turn every hour. Patient is afebrile, asymptomatic, in no apparent distress. Continue present wound care Continue ampicillin 2 g IV every 6 hours until 08/23/2019 Patient is awaiting placement in a [facility] facility No further medical intervention indicated at this time (2) HTN (hypertension) Status: Chronic Problem Text: Continue present medications (3) BPH (benign prostatic hyperplasia) Status: Chronic Problem Text: Continue present medications (4) Dementia Status: Chronic Problem Text: Continue present medications (5) HCAP (healthcare-associated pneumonia) Status: Resolved Problem Text: Finished IV antibiotic course He is back on ampicillin for his chronic osteomyelitis until 08/23/2019 ID follow-up appreciated Plan/VTE VTE Prophylaxis Ordered?: Yes (lovenox 30 mg daily) VTE Exclusion Mechanical Proph: N/A:VTE Prophy Ordered VTE Exclusion Pharmacological: N/A:VTE Prophy Ordered VS, I&O, 24H, Fishbone Vital Signs/I&O Vital Signs Date Time Temp Pulse Resp B/P (MAP) Pulse Ox O2 Delivery O2 Flow Rate FiO2 08/14/19 08:17 70 159/67 08/14/19 06:00 98.4 20 93 Room Air I&O- Last 24 Hours up to 6 AM 08/14/19 06:00 Intake Total 1500 ml Output Total 0 ml Balance 1500 ml Laboratory Data 24H LABS Laboratory Tests 2 08/13/19 14:59: Coronavirus (COVID-19)(PCR) NEGATIVE ALVERTO EDDY MD August 14, 2019 11:11
[2019-08-14 14:00] VITALS: BP 140/72
[2019-08-14] MEDS: DONEPEZIL 5 MG TAB PO SCH (19:50)
[2019-08-14] MEDS: CYANOCOBALAMIN 500 MCG TAB PO SCH (19:50)
[2019-08-14] MEDS: VITAMIN D 1,000 INTERNATIONAL UNITS TABLET PO SCH (19:50)
[2019-08-14] MEDS: TAMSULOSIN 0.4 MG CAP PO SCH (19:50)
[2019-08-14 22:00] VITALS: BP 168/88
[2019-08-15] MEDS: AMPICILLIN SOD 2 GM in D5W MINI-BAG PLUS 100 ML IV SCH ×3 (05:08→17:11)
[2019-08-15] MEDS: HEPARIN SOD (PORCINE) 5000UNITS/ML VIAL (J1644 PER 1000UNITS) SQ SCH ×3 (05:08→21:13)
[2019-08-15 06:00] VITALS: BP 162/88
[2019-08-15 06:10] LABS: BASO % 0.2 % (0.0-1.0); EOS # 0.1 10^3/uL (0.0-0.5); EOS % 1.5 % (0.0-3.0); HEMATOCRIT 28.6 % (42.0-52.0); HEMOGLOBIN 9.3 g/dl (13.5-17.5); LYMPH # 1.2 10^3/uL (1.5-5.0); LYMPH % 12.7 % (24.0-44.0); MEAN CORPUSCULAR HEMOGLOBIN 31.2 pg (27.0-33.0); MEAN CORPUSCULAR HGB CONC 32.5 g/dl (32.0-36.5); MONO % 10.5 % (0.0-5.0); NEUTROPHILS # 7.2 10^3/uL (1.5-8.5); NEUTROPHILS % 74.6 % (36.0-66.0); PLATELET COUNT, AUTOMATED 278 10^3/uL (150-450); RED BLOOD COUNT 2.98 10^6/uL (4.30-6.10); WHITE BLOOD COUNT 9.7 10^3/uL (4.0-10.0)
[2019-08-15 06:25] LABS: CALCIUM LEVEL 8.1 MG/DL (8.8-10.2); CREATININE FOR GFR 1.41 MG/DL (0.70-1.30); GLOMERULAR FILTRATION RATE 50.9 (>35); POTASSIUM SERUM 3.9 MEQ/L (3.5-5.1)
[2019-08-15] MEDS: amLODIPine 5 MG TAB PO SCH (09:12)
[2019-08-15] MEDS: CETIRIZINE (ZyrTEC) 10 MG TAB PO SCH (09:12)
[2019-08-15] MEDS: NYSTATIN 100,000 UNITS/GM TOPICAL PWD 15 GM TOP SCH ×2 (09:12→21:13)
--- NOTE | 2019-08-15 09:39 | IPNPDOC ---
Subjective Date Seen The patient was seen on 08/15/19. Subjective Chief Complaint/HPI Patient is comfortable lying in bed. Offers no complaints General: Denies: ROS Unobtainable, Chills, Night Sweats, Fatigue, Malaise, Normal Appetite, Other Symptoms Constitutional: Denies: Chills, Fever, Malaise, Night Sweats, Weakness, Fatigue, Weight Loss, Lethargy, Other Pulmonary: Denies: Dyspnea, Cough, Pleuritic Chest Pain, Other Symptoms Cardiovascular: Denies: Chest Pain, Palpitations, Orthopnea, Paroxysmal Noc. Dyspnea, Edema, Lt Headedness, Other Symptoms Gastrointestinal: Denies: Nausea, Vomiting, Abdominal Pain, Diarrhea, Constipation, Melena, Hematochezia, Other Symptoms Musculoskeletal: Denies: Neck Pain, Back Pain, Shoulder Pain, Arm Pain, Hand Pain, Leg Pain, Foot Pain, Joint Pain, Muscle Pain, Spasms, Other Symptoms Objective Physical Examination Eye Exam: Positive: PERRLA, Conjunctiva & lids normal Neck Exam: Positive: Supple Chest Exam: Positive: Clear to auscultation, Normal air movement Heart Exam: Positive: Rate Normal, Normal S1, Normal S2 Abdomen Exam: Positive: Normal bowel sounds, Soft Male Exam: Positive: Normal Genital Exam Extremity Exam: Positive: Normal pulses, Other (. Dressing at the right foot noted) Skin Exam: Positive: Nl turgor and temperature Assessment /Plan Problems (1) Gangrene of toe of right foot Status: Acute Problem Text: Distal dried gangrene, with recent third metatarsal head excision and wound debridement, excisional type, including subcutaneous tissue, tendon and bone 07/10/19. 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 Positive enterococcus and wound cultures on ampicillin as per sensitivities for chronic osteomyelitis Pressure ulcers in bilateral heels. Boots are in place. The patient is Pravin lift and turn every hour. Patient is afebrile, asymptomatic, in no apparent distress. Continue present wound care Continue ampicillin 2 g IV every 6 hours until 08/23/2019 Today's blood work checked all essentially within normal range. His BUN of 20, creatinine 1.41 Still awaiting placement in a long-term facility (2) HTN (hypertension) Status: Chronic Problem Text: Continue present medications (3) BPH (benign prostatic hyperplasia) Status: Chronic Problem Text: Continue present medications (4) Dementia Status: Chronic Problem Text: Continue present medications (5) HCAP (healthcare-associated pneumonia) Status: Resolved Problem Text: Finished IV antibiotic course He is back on ampicillin for his chronic osteomyelitis until 08/23/2019 ID follow-up appreciated Plan/VTE VTE Prophylaxis Ordered?: Yes (lovenox 30 mg daily) VTE Exclusion Mechanical Proph: N/A:VTE Prophy Ordered VTE Exclusion Pharmacological: N/A:VTE Prophy Ordered VS, I&O, 24H, Fishbone Vital Signs/I&O Vital Signs Date Time Temp Pulse Resp B/P (MAP) Pulse Ox O2 Delivery O2 Flow Rate FiO2 08/15/19 09:12 74 128/63 08/15/19 06:00 96.9 20 95 Room Air I&O- Last 24 Hours up to 6 AM 08/15/19 06:00 Intake Total 1070 ml Output Total 100 ml Balance 970 ml Laboratory Data 24H LABS Laboratory Tests 2 08/15/19 05:49: Immature Granulocyte % (Auto) 0.5, Neutrophils (%) (Auto) 74.6H, Lymphocytes (%) (Auto) 12.7L, Monocytes (%) (Auto) 10.5H, Eosinophils (%) (Auto) 1.5, Basophils (%) (Auto) 0.2, Neutrophils # (Auto) 7.2, Lymphocytes # (Auto) 1.2L, Monocytes # (Auto) 1.0H, Eosinophils # (Auto) 0.1, Basophils # (Auto) 0.0, Nucleated Red Bl ood Cells % (auto) 0.0, Anion Gap 7L, Glomerular Filtration Rate 50.9, Calcium Level 8.1L CBC/BMP Laboratory Tests 08/15/19 05:49 ALVERTO EDDY MD August 15, 2019 09:39
[2019-08-15 14:00] VITALS: BP 157/65
[2019-08-15] MEDS: ASPIRIN 81 MG ENTERIC TAB PO SCH (17:09)
[2019-08-15] MEDS: ATORVASTATIN 10 MG TAB PO SCH (17:09)
[2019-08-15] MEDS: VITAMIN D 1,000 INTERNATIONAL UNITS TABLET PO SCH (21:12)
[2019-08-15] MEDS: DONEPEZIL 5 MG TAB PO SCH (21:13)
[2019-08-15] MEDS: CYANOCOBALAMIN 500 MCG TAB PO SCH (21:13)
[2019-08-15] MEDS: TAMSULOSIN 0.4 MG CAP PO SCH (21:13)
[2019-08-15 22:00] VITALS: BP 157/94
[2019-08-16] MEDS: AMPICILLIN SOD 2 GM in D5W MINI-BAG PLUS 100 ML IV SCH ×5 (00:03→23:36)
[2019-08-16] MEDS: HEPARIN SOD (PORCINE) 5000UNITS/ML VIAL (J1644 PER 1000UNITS) SQ SCH ×3 (05:15→22:24)
[2019-08-16 06:00] VITALS: BP 152/53
[2019-08-16] MEDS: amLODIPine 5 MG TAB PO SCH ×2 (09:00→09:33)
[2019-08-16] MEDS: NYSTATIN 100,000 UNITS/GM TOPICAL PWD 15 GM TOP SCH ×2 (09:19→22:24)
[2019-08-16] MEDS: CETIRIZINE (ZyrTEC) 10 MG TAB PO SCH (09:32)
[2019-08-16] MEDS: ASPIRIN 81 MG ENTERIC TAB PO SCH (09:32)
[2019-08-16] MEDS: ATORVASTATIN 10 MG TAB PO SCH (09:34)
--- NOTE | 2019-08-16 10:05 | REP ---
CT BRAIN WITHOUT CONTRAST: REPEAT DICTATION. HISTORY: Rule out CVA. Preliminary report is provided at the time of the exam by Dr. Cavanaugh. Comparison head CT study: May 16, 2019 CT FINDINGS: Preliminary digital strategic client executive radiograph is unremarkable. Visualized paranasal sinuses are clear. The bony calvarium is intact. There is moderate vascular calcification in the distribution of the distal vertebral and internal carotid arteries bilaterally. There is generalized volume loss. Small vessel changes are seen in the periventricular white matter bilaterally. There are areas of encephalomalacia representing old lacunar infarct in the right basal ganglia and old left parietal lobe cerebral infarction. These areas are unchanged from the May 16, 2019 study. No new infarct is apparent. There is no evidence of intracranial hemorrhage, mass, or extra-axial fluid collection. No midline shift is seen. IMPRESSION: No acute infarct, hemorrhage, or mass. 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 Electronically Signed by Jacinto Eisenberg MD 08/16/2019 10:27 A
--- NOTE | 2019-08-16 10:45 | IPNPDOC ---
Subjective Date Seen The patient was seen on 08/16/19. Subjective Chief Complaint/HPI Yesterday on and noticed that patient was drooling on his left side when lying down on that side also. She thought maybe patient had weakness of left arm, on my examination, patient was awake, alert, no dysarthria, no new weakness of left arm but could not confirm the weakness of left side of face. Patient had a CT of the head done which was essentially negative. Patient is scheduled swallow eval again today General: Denies: ROS Unobtainable, Chills, Night Sweats, Fatigue, Malaise, Normal Appetite, Other Symptoms Constitutional: Denies: Chills, Fever, Malaise, Night Sweats, Weakness, Fatigue, Weight Loss, Lethargy, Other Skin: Denies: Rash, Lesions, Jaundice, Bruising, Itching, Dry, Breakdown, Nail Changes, Other Pulmonary: Denies: Dyspnea, Cough, Pleuritic Chest Pain, Other Symptoms Cardiovascular: Denies: Chest Pain, Palpitations, Orthopnea, Paroxysmal Noc. Dyspnea, Edema, Lt Headedness, Other Symptoms Gastrointestinal: Denies: Nausea, Vomiting, Abdominal Pain, Diarrhea, Const ipation, Melena, Hematochezia, Other Symptoms Musculoskeletal: Denies: Neck Pain, Back Pain, Shoulder Pain, Arm Pain, Hand Pain, Leg Pain, Foot Pain, Joint Pain, Muscle Pain, Spasms, Other Symptoms Neurological: Denies: Weakness, Numbness, Incoordination, Change in speech, Confusion, Seizures, Other Symptoms Objective Physical Examination Eye Exam: Positive: PERRLA, Conjunctiva & lids normal Neck Exam: Positive: Supple Chest Exam: Positive: Clear to auscultation, Normal air movement Heart Exam: Positive: Rate Normal, Normal S1, Normal S2 Abdomen Exam: Positive: Normal bowel sounds, Soft Male Exam: Positive: Normal Genital Exam Extremity Exam: Positive: Normal pulses, Other (. Dressing at the right foot noted) Skin Exam: Positive: Nl turgor and temperature Assessment /Plan Problems (1) Gangrene of toe of right foot Status: Acute Problem Text: Distal dried gangrene, with recent third metatarsal head excision and wound debridement, excisional type, including subcutaneous tissue, tendon and bone 07/10/19. 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 Positive enterococcus and wound cultures on ampicillin as per sensitivities for chronic osteomyelitis Pressure ulcers in bilateral heels. Boots are in place. The patient is Pravin lift and turn every hour. Patient is afebrile, asymptomatic, in no apparent distress. Continue present wound care Continue ampicillin 2 g IV every 6 hours until 08/23/2019 . Still awaiting placement in a long-term facility (2) HTN (hypertension) Status: Chronic Problem Text: Continue present medications (3) BPH (benign prostatic hyperplasia) Status: Chronic Problem Text: Continue present medications (4) Dementia Status: Chronic Problem Text: Continue present medications (5) HCAP (healthcare-associated pneumonia) Status: Resolved Problem Text: Finished IV antibiotic course He is back on ampicillin for his chronic osteomyelitis until 08/23/2019 ID follow-up appreciated (6) TIA (transient ischemic attack) Status: Acute Problem Text: Not sure secondary to patient's multiple chronic problems and chronic body habitus changes CT of the head was essentially negative. Patient is back to his baseline mental status and function Will add aspirin 81 mg by mouth daily and Lipitor 10 mg by mouth daily, considering the doubt of possible TIA. Scheduled for a swallow eval again today Plan/VTE VTE Prophylaxis Ordered?: Yes (lovenox 30 mg daily) VTE Exclusion Mechanical Proph: N/A:VTE Prophy Ordered VTE Exclusion Pharmacological: N/A:VTE Prophy Ordered VS, I&O, 24H, Fishbone Vital Signs/I&O Vital Signs Date Time Temp Pulse Resp B/P (MAP) Pulse Ox O2 Delivery O2 Flow Rate FiO2 08/16/19 09:00 50 124/52 08/16/19 06:00 97.4 18 96 08/15/19 14:00 Room Air I&O- Last 24 Hours up to 6 AM 08/16/19 06:00 Intake Total 660 ml Output Total 0 ml Balance 660 ml ALVERTO EDDY MD August 16, 2019 10:45
[2019-08-16 14:00] VITALS: BP 111/55
[2019-08-16 22:00] VITALS: BP 166/61
[2019-08-16] MEDS: VITAMIN D 1,000 INTERNATIONAL UNITS TABLET PO SCH (22:23)
[2019-08-16] MEDS: TAMSULOSIN 0.4 MG CAP PO SCH (22:23)
[2019-08-16] MEDS: DONEPEZIL 5 MG TAB PO SCH (22:24)
[2019-08-16] MEDS: CYANOCOBALAMIN 500 MCG TAB PO SCH (22:24)
[2019-08-16 23:42] VITALS: BP 152/60
[2019-08-17 06:00] VITALS: BP 160/74
[2019-08-17 06:31] LABS: BASO # 0.1 10^3/uL (0.0-0.2); BASO % 0.5 % (0.0-1.0); EOS # 0.3 10^3/uL (0.0-0.5); EOS % 3.1 % (0.0-3.0); HEMATOCRIT 29.8 % (42.0-52.0); HEMOGLOBIN 9.7 g/dl (13.5-17.5); LYMPH # 1.3 10^3/uL (1.5-5.0); LYMPH % 13.7 % (24.0-44.0); MEAN CORPUSCULAR HEMOGLOBIN 31.3 pg (27.0-33.0); MEAN CORPUSCULAR HGB CONC 32.6 g/dl (32.0-36.5); MEAN CORPUSCULAR VOLUME 96.1 fl (80.0-96.0); MONO % 10.3 % (0.0-5.0); NEUTROPHILS # 6.7 10^3/uL (1.5-8.5); NEUTROPHILS % 71.5 % (36.0-66.0); PLATELET COUNT, AUTOMATED 263 10^3/uL (150-450); WHITE BLOOD COUNT 9.4 10^3/uL (4.0-10.0)
[2019-08-17] MEDS: HEPARIN SOD (PORCINE) 5000UNITS/ML VIAL (J1644 PER 1000UNITS) SQ SCH ×3 (06:33→21:05)
[2019-08-17] MEDS: AMPICILLIN SOD 2 GM in D5W MINI-BAG PLUS 100 ML IV SCH ×4 (06:34→23:18)
[2019-08-17 06:49] LABS: CALCIUM LEVEL 8.5 MG/DL (8.8-10.2); CREATININE FOR GFR 1.44 MG/DL (0.70-1.30); GLOMERULAR FILTRATION RATE 49.6 (>35); POTASSIUM SERUM 4.3 MEQ/L (3.5-5.1)
[2019-08-17] MEDS: ATORVASTATIN 10 MG TAB PO SCH (10:43)
[2019-08-17] MEDS: ASPIRIN 81 MG ENTERIC TAB PO SCH (10:43)
[2019-08-17] MEDS: CETIRIZINE (ZyrTEC) 10 MG TAB PO SCH (10:43)
[2019-08-17] MEDS: amLODIPine 5 MG TAB PO SCH (10:44)
[2019-08-17] MEDS: NYSTATIN 100,000 UNITS/GM TOPICAL PWD 15 GM TOP SCH ×2 (10:46→21:06)
[2019-08-17 14:00] VITALS: BP 148/61
[2019-08-17] MEDS: VITAMIN D 1,000 INTERNATIONAL UNITS TABLET PO SCH (21:05)
[2019-08-17] MEDS: CYANOCOBALAMIN 500 MCG TAB PO SCH (21:05)
[2019-08-17] MEDS: TAMSULOSIN 0.4 MG CAP PO SCH (21:05)
[2019-08-17] MEDS: DONEPEZIL 5 MG TAB PO SCH (21:05)
[2019-08-17 22:00] VITALS: BP 149/78
[2019-08-18 06:00] VITALS: BP 151/70
[2019-08-18] MEDS: HEPARIN SOD (PORCINE) 5000UNITS/ML VIAL (J1644 PER 1000UNITS) SQ SCH ×3 (06:09→21:30)
[2019-08-18] MEDS: AMPICILLIN SOD 2 GM in D5W MINI-BAG PLUS 100 ML IV SCH ×3 (06:10→17:37)
[2019-08-18] MEDS: CETIRIZINE (ZyrTEC) 10 MG TAB PO SCH (11:25)
[2019-08-18] MEDS: ASPIRIN 81 MG ENTERIC TAB PO SCH (11:25)
[2019-08-18] MEDS: ATORVASTATIN 10 MG TAB PO SCH (11:25)
[2019-08-18] MEDS: NYSTATIN 100,000 UNITS/GM TOPICAL PWD 15 GM TOP SCH ×2 (11:26→21:30)
[2019-08-18] MEDS: amLODIPine 5 MG TAB PO SCH (11:26)
--- NOTE | 2019-08-18 12:20 | IPNPDOC ---
Text Note Date of Service The patient was seen on 08/17/19. NOTE SUBJECTIVE: alert awake sitting up in chair. Told me his name and understood that i was the doctor coming to check on him. Says he is feeling good. Appears cheerful and smiling this morning. no new events this week. PHYSICAL EXAMINATION: VITALS : As below. GENERAL: Awake, oriented to himself only, He is disoriented to time and place. He does answer questions. HEENT: Normocephalic , atraumatic, anicteric eyes, moist mucus membranes. NECK: No jugular venous distention (JVD). No thyromegaly. LUNGS: Diminished but clear to auscultation. No wheezing, rales or rhonchi. some basal crackles. HEART: S1, S2. Sinus rhythm. No murmurs, rubs or gallops. ABDOMEN: Soft, nontender, nondistended. Normal active bowel sounds. No hepatosplenomegaly. No rebound or guarding. EXTREMITIES: right fifth, fourth toe amputated with open ulcer with granulation tissue on the medial part and eschar on the lateral part. Another small ulcer small more medially with Hydrofera blue stuck on it which i did not dislodge. No pus , no discharge or foul daquan noted. LABORATORY DATA: Reviewed. ASSESSMENT AND PLAN: 86-year-old, FULL CODE, demented gentleman from correction with history of chronic obstructive pulmonary disease (COPD), peripheral vascular disease, Dementia, Hypertension, transferred from [facility] for [facility] services due to right second and fifth toe gangrene and treatment for foot infection. The patient was found to have hypertensive urgency and required blood pressure medications, intravenously initially, but currently stable on ora l medications. The patient had been on IV Zosyn and vancomycin now discontinued. Initially the wanted the toe to autoamputate. However in May patient was having low grade fevers and it looked like the toe was becoming moist and infected. Ultimately patient had amputation of right fifth t oe on 05/25/19 at bedside. Then again in June gangrene seemed to have progressed to the third toe on the right amputation so had At present waiting for placement. Progressing dry Gangrene of the right foot Now Involving third, forth and fifth toes with more and more amputations. 05/25/19: s/p right 5th toe and 5th metatarsal head amputation 3/31/20: s/p right 4th toe and 4th metatarsal head amputation 07/10/19: s/p right 3rd metatarsal head excision and wound debridement, excisional type, including subcutaneous tissue, tendon and bone Bone biopy positive for chronic osteomyelitis with E faecalis on Ampicillin till 08/23/19 Chronic Osteomyelitis Positive enterococcus in wound cultures on ampicillin as per sensitivities for chronic osteomyelitis Continue ampicillin 2 g IV every 6 hours until 08/23/2019 . PVD reassessed By Vascular on 07/13/19, was also seen in jan 2019 Dr Spence recommended above knee amputation as he has distal tibial disease and as Dr Murphy feels that the wound from a TMA will not heal , patient being non ambulatory BKA is not a good choice this was discussed with and did not want to consider an AKA at this time However the dry gangrene may change anytime to wet rapidly progressing gangrene then we will not have any choice other than AKA to save his life over limb. Dementia : correction replacement. on donepezil and depakote trazodone for insomnia. Dysphagia on dysphagia diet. HCAP (healthcare-associated pneumonia)/ aspiration pneumonia Resolved received several courses of different antibiotics. Pressure ulcers in bilateral heels. Boots are in place. The patient is Pravin lift and turn every hour. Hypertension. on lisinopril Had bradycardia with betablocker. Chronic obstructive pulmonary disease (COPD), compensated. BPH continue flomax. CKD stage 3 creatinine stable. DVT prophylaxis in place. Dispo: group home placement. VS,Fishbone, I+O VS, Fishbone, I+O Laboratory Tests 08/17/19 06:20 Vital Signs Date Time Temp Pulse Resp B/P (MAP) Pulse Ox O2 Delivery O2 Flow Rate FiO2 08/17/19 14:00 97.8 60 20 148/61 (90) 96 Room Air I&O- Last 24 Hours up to 6 AM 08/17/19 07:00 Intake Total 1160 ml Output Total 150 ml Balance 1010 ml PARESH BAKER MD August 17, 2019 22:03
--- NOTE | 2019-08-18 12:53 | IPNPDOC ---
Text Note Date of Service The patient was seen on 08/18/19. NOTE SUBJECTIVE: Alert awake sitting up in chair. Told me his name and knew that he was at a medical center. Said this was the [facility]. Says he is feeling good. Appears cheerful and smiling this morning. No new events this week. Wound looks good. PHYSICAL EXAMINATION: VITALS : As below. GENERAL: Awake, oriented to himself only, He is disoriented to time and place. He does answer questions. HEENT: Normocephalic , atraumatic, anicteric eyes, moist mucus membranes. NECK: No jugular venous distention (JVD). No thyromegaly. LUNGS: Diminished but clear to auscultation. No wheezing, rales or rhonchi. some basal crackles. HEART: S1, S2. Sinus rhythm. No murmurs, rubs or gallops. ABDOMEN: Soft, nontender, nondistended. Normal active bowel sounds. No hepatosplenomegaly. No rebound or guarding. EXTREMITIES: right fifth, fourth toe amputated with open ulcer with granulation tissue on the medial part and eschar on the lateral part. Another small ulcer small more medially with Hydrofera blue stuck on it which i did not dislodge. No pus , no discharge or foul daquan noted. LABORATORY DATA: Reviewed. ASSESSMENT AND PLAN: 86-year-old, FULL CODE, demented gentleman from skilled nursing with history of chronic obstructive pulmonary disease (COPD), peripheral vascular disease, Dementia, Hypertension, transferred from [facility] for vascular services due to right second and fifth toe gangrene and treatment for foot infection. The patient was found to have hypertensive urgency and required blood pressure medications, intravenously initially, but currently stable on oral medications. The patient had been on IV Zosyn and vancomycin now discontinued. Initially the wanted the toe to autoamputate. However in May patient was having low grade fevers and it looked like the toe was becoming moist and infected. Ultimately patient had amputation of right fifth toe on 05/25/19 at bedside. Then again in June gangrene seemed to have progressed to the third toe on the right amputation so had At present waiting for placement. Progressing dry Gangrene of the right foot Now Involving third, forth and fifth toes with more and more amputations. 05/25/19: s/p right 5th toe and 5th metatarsal head amputation 06/29/19: s/p right 4th toe and 4th metatarsal head amputation 07/10/19: s/p right 3rd metatarsal head excision and wound debridement, excisional type, including subcutaneous tissue, tendon and bone Bone biopy positive for chronic osteomyelitis with E faecalis on Ampicillin till 08/23/19 Chronic Osteomyelitis Positive enterococcus in wound cultures on ampicillin as per sensitivities for chronic osteomyelitis Continue ampicillin 2 g IV every 6 hours until 08/23/2019 . PVD reassessed By Vascular on 07/13/19, was also seen in jan 2019 Dr Spence recommended above knee amputation as he has distal tibial disease and as Dr Murphy feels that the wound from a TMA will not heal , patient being non ambulatory BKA is not a good choice this was discussed with and did not want to consider an AKA at this time However the dry gangrene may change anytime to wet rapidly progressing gangrene then we will not have any choice other than AKA to save his life over limb. Dementia : skilled nursing replacement. on donepezil and depakote trazodone for insomnia. Dysphagia on dysphagia diet. HCAP (healthcare-associated pneumonia)/ aspiration pneumonia Resolved received several courses of different antibiotics. Pressure ulcers in bilateral heels. Boots are in place. The patient is Pravin lift and turn every hour. Hypertension. on lisinopril Had bradycardia with betablocker. Chronic obstructive pulmonary disease (COPD), compensated. BPH continue flomax. CKD stage 3 creatinine stable. DVT prophylaxis in place. Dispo: residential placement. VS,Fishbone, I+O VS, Fishbone, I+O Vital Signs Date Time Temp Pulse Resp B/P (MAP) Pulse Ox O2 Delivery O2 Flow Rate FiO2 08/18/19 11:26 61 158/85 08/18/19 06:00 98.4 17 94 Room Air I&O- Last 24 Hours up to 6 AM 08/18/19 06:00 Intake Total 920 ml Output Total 0 ml Balance 920 ml PARESH BAKER MD August 18, 2019 12:53
[2019-08-18 14:00] VITALS: BP 127/67
[2019-08-18] MEDS: CYANOCOBALAMIN 500 MCG TAB PO SCH (21:30)
[2019-08-18] MEDS: DONEPEZIL 5 MG TAB PO SCH (21:30)
[2019-08-18] MEDS: TAMSULOSIN 0.4 MG CAP PO SCH (21:30)
[2019-08-18] MEDS: VITAMIN D 1,000 INTERNATIONAL UNITS TABLET PO SCH (21:30)
[2019-08-18 22:00] VITALS: BP 115/67
[2019-08-18 23:20] VITALS: BP 180/68
[2019-08-19] MEDS: AMPICILLIN SOD 2 GM in D5W MINI-BAG PLUS 100 ML IV SCH ×5 (00:05→23:20)
[2019-08-19] MEDS: HEPARIN SOD (PORCINE) 5000UNITS/ML VIAL (J1644 PER 1000UNITS) SQ SCH ×3 (05:15→21:45)
[2019-08-19 06:00] VITALS: BP 161/67
[2019-08-19 08:00] VITALS: BP 182/73
[2019-08-19] MEDS: ASPIRIN 81 MG ENTERIC TAB PO SCH (08:25)
[2019-08-19] MEDS: ATORVASTATIN 10 MG TAB PO SCH (08:25)
[2019-08-19] MEDS: CETIRIZINE (ZyrTEC) 10 MG TAB PO SCH (08:25)
[2019-08-19] MEDS: amLODIPine 5 MG TAB PO SCH (08:28)
[2019-08-19] MEDS: NYSTATIN 100,000 UNITS/GM TOPICAL PWD 15 GM TOP SCH ×2 (08:28→21:45)
[2019-08-19 14:00] VITALS: BP 131/59
--- NOTE | 2019-08-19 15:08 | IPNPDOC ---
Text Note Date of Service The patient was seen on 08/19/19. NOTE SUBJECTIVE: Awake sitting up in chair. As per nurses patient fell out of bed last night tangled in his blankets and pillows, no injury noted. PHYSICAL EXAMINATION: VITALS : As below. GENERAL: Awake, oriented to himself only, He is disoriented to time and place. He does answer questions. HEENT: Normocephalic , atraumatic, anicteric eyes, moist mucus membranes. NECK: No jugular venous distention (JVD). No thyromegaly. LUNGS: Diminished but clear to auscultation. No wheezing, rales or rhonchi. some basal crackles. HEART: S1, S2. Sinus rhythm. No murmurs, rubs or gallops. ABDOMEN: Soft, nontender, nondistended. Normal active bowel sounds. No hepatosplenomegaly. No rebound or guarding. EXTREMITIES: right fifth, fourth toe amputated with open ulcer with granulation tissue on the medial part and eschar on the lateral part. Another small ulcer small more medially with Hydrofera blue stuck on it which i did not dislodge. No pus , no discharge or foul daquan noted. LABORATORY DATA: Reviewed. ASSESSMENT AND PLAN: 86-year-old, FULL CODE, demented gentleman from [facility] with history of chronic obstructive pulmonary disease (COPD), peripheral vascular disease, Dementia, Hypertension, transferred from [facility] for vascular services due to right second and fifth toe gangrene and treatment for foot infection. The patient was found to have hypertensive urgency and required blood pressure medications, intravenously initially, but currently stable on oral medications. The patient had been on IV Zosyn and vancomycin now discontinued. Initially the wanted the toe to autoamputate. However in May patient was having low grade fevers and it looked like the toe was becoming moist and infected. Ultimately patient had amputation of right fifth toe on 05/25/19 at bedside. Then again in May-June gangrene seemed to have progressed to the fourth and third toes in rapid succession so had further amputations as below. Bone biopsy showed chronic osteomyelitis finishing antibiotic course. At present waiting for placement. Progressing dry Gangrene of the right foot Now Involving third, forth and fifth toes with more and more amputations. 05/25/19: s/p right 5th toe and 5th metatarsal head amputation 3/31/20: s/p right 4th toe and 4th metatarsal head amputation 07/10/19: s/p right 3rd metatarsal head excision and wound debridement, excisional type, including subcutaneous tissue, tendon and bone Bone biopsy positive for chronic osteomyelitis with E faecalis on Ampicillin till 08/23/19 Chronic Osteomyelitis Positive enterococcus in wound cultures on ampicillin as per sensitivities for chronic osteomyelitis Continue ampicillin 2 g IV every 6 hours until 08/23/2019 . PVD reassessed By Vascular on 07/13/19, was also seen in jan 2019 Dr Spence recommended above knee amputation as he has distal tibial disease and as Dr Murphy feels that the wound from a TMA will not heal , patient being non ambulatory BKA is not a good choice this was discussed with and did not want to consider an AKA at this time However the dry gangrene may change anytime to wet rapidly progressing gangrene then we will not have any choice other than AKA to save his life over limb. Dementia : [facility] replacement. on donepezil and depakote trazodone for insomnia. Dysphagia on dysphagia diet. HCAP (healthcare-associated pneumonia)/ aspiration pneumonia Resolved received several courses of different antibiotics. Pressure ulcers in bilateral heels. Boots are in place. The patient is Pravin lift and turn every hour. Hypertension. on lisinopril Had bradycardia with betablocker. Chronic obstructive pulmonary disease (COPD), compensated. BPH continue flomax. CKD stage 3 creatinine stable. DVT prophylaxis in place. Dispo: shelter placement. VS,Fishbone, I+O VS, Fishbone, I+O Vital Signs Date Time Temp Pulse Resp B/P (MAP) Pulse Ox O2 Delivery O2 Flow Rate FiO2 08/19/19 08:28 58 142/68 08/19/19 06:00 96.8 16 95 Room Air I&O- Last 24 Hours up to 6 AM 08/19/19 07:00 Intake Total 500 ml Output Total 0 ml Balance 500 ml PARESH BAKER MD August 19, 2019 15:08
[2019-08-19] MEDS: VITAMIN D 1,000 INTERNATIONAL UNITS TABLET PO SCH (21:44)
[2019-08-19] MEDS: CYANOCOBALAMIN 500 MCG TAB PO SCH (21:44)
[2019-08-19] MEDS: TAMSULOSIN 0.4 MG CAP PO SCH (21:44)
[2019-08-19] MEDS: DONEPEZIL 5 MG TAB PO SCH (21:45)
[2019-08-20] MEDS: HEPARIN SOD (PORCINE) 5000UNITS/ML VIAL (J1644 PER 1000UNITS) SQ SCH ×3 (05:06→21:32)
[2019-08-20] MEDS: AMPICILLIN SOD 2 GM in D5W MINI-BAG PLUS 100 ML IV SCH ×4 (05:06→23:01)
[2019-08-20 06:00] VITALS: BP 122/91
[2019-08-20] MEDS: CETIRIZINE (ZyrTEC) 10 MG TAB PO SCH (09:52)
[2019-08-20] MEDS: ATORVASTATIN 10 MG TAB PO SCH (09:52)
[2019-08-20] MEDS: ASPIRIN 81 MG ENTERIC TAB PO SCH (09:52)
[2019-08-20] MEDS: amLODIPine 5 MG TAB PO SCH (09:54)
[2019-08-20] MEDS: NYSTATIN 100,000 UNITS/GM TOPICAL PWD 15 GM TOP SCH ×2 (09:58→21:32)
--- NOTE | 2019-08-20 11:07 | IPNPDOC ---
Text Note Date of Service The patient was seen on 08/20/19. NOTE SUBJECTIVE: Noted sleeping comfortably. I woke him up. He was easily arousable. Did not offer any complaints. No issues overnight as per the nurses. PHYSICAL EXAMINATION: VITALS : As below. GENERAL: Awake, oriented to himself only, He is disoriented to time and place. He does answer questions. HEENT: Normocephalic , atraumatic, anicteric eyes, moist mucus membranes. NECK: No jugular venous distention (JVD). No thyromegaly. LUNGS: Diminished but clear to auscultation. No wheezing, rales or rhonchi. so me basal crackles. HEART: S1, S2. Sinus rhythm. No murmurs, rubs or gallops. ABDOMEN: Soft, nontender, nondistended. Normal active bowel sounds. No hepatosplenomegaly. No rebound or guarding. EXTREMITIES: right fifth, fourth toe amputated with open ulcer with granulation tissue on the medial part and eschar on the lateral part. Another small ulcer small more medially with Hydrofera blue stuck on it which i did not dislodge. No pus , no discharge or foul daquan noted. LABORATORY DATA: Reviewed. ASSESSMENT AND PLAN: 86-year-old, FULL CODE, demented gentleman from senior care with history of chronic obstructive pulmonary disease (COPD), peripheral vascular disease, Dementia, Hypertension, transferred from [facility] for vascular services due to right second and fifth toe gangrene and treatment for foot infection. The patient was found to have hypertensive urgency and required blood pressure medications, intravenously initially, but currently stable on oral medications. The patient had been on IV Zosyn and vancomycin now discontinued. Initially the wanted the toe to autoamputate. However in May patient was having low grade fevers and it looked like the toe was becoming moist and infected. Ultimately patient had amputation of right fifth toe on 05/25/19 at bedside. Then again in May-June gangrene seemed to have progressed to the fourth and third toes in rapid succession so had further amputations as below. Bone biopsy showed chronic osteomyelitis finishing antibiotic course. At present waiting for placement. Progressing dry Gangrene of the right foot Now Involving third, forth and fifth toes with more and more amputations. 05/25/19: s/p right 5th toe and 5th metatarsal head amputation 06/29/19: s/p right 4th toe and 4th metatarsal head amputation 07/10/19: s/p right 3rd metatarsal head excision and wound debridement, excisional type, including subcutaneous tissue, tendon and bone Bone biopsy positive for chronic osteomyelitis with E faecalis on Ampicillin till 08/23/19 Chronic Osteomyelitis Positive enterococcus in wound cultures on ampicillin as per sensitivities for chronic osteomyelitis Continue ampicillin 2 g IV every 6 hours until 08/23/2019 . PVD reassessed By Vascular on 07/13/19, was also seen in jan 2019 Dr Spence recommended above knee amputation as he has distal tibial disease and as Dr Murphy feels that the wound from a TMA will not heal , patient being non ambulatory BKA is not a good choice this was discussed with and did not want to consider an AKA at this time However the dry gangrene may change anytime to wet rapidly progressing gangrene then we will not have any choice other than AKA to save his life over limb. Dementia : senior care replacement. on donepezil and depakote trazodone for insomnia. Dysphagia on dysphagia diet. HCAP (healthcare-associated pneumonia)/ aspiration pneumonia Resolved received several courses of different antibiotics. Pressure ulcers in bilateral heels. Boots are in place. The patient is Pravin lift and turn every hour. Hypertension. on lisinopril Had bradycardia with betablocker. Chronic obstructive pulmonary disease (COPD), compensated. BPH continue flomax. CKD stage 3 creatinine stable. DVT prophylaxis in place. [facility]. VS,Fishbone, I+O VS, Fishbone, I+O Vital Signs Date Time Temp Pulse Resp B/P (MAP) Pulse Ox O2 Delivery O2 Flow Rate FiO2 08/20/19 09:54 60 176/64 08/20/19 06:00 97.9 17 92 Room Air I&O- Last 24 Hours up to 6 AM 08/20/19 05:59 Intake Total 520 ml Output Total 0 ml Balance 520 ml PARESH BAKER MD August 20, 2019 11:07
[2019-08-20 11:11] LABS: HEP C VIRUS AB INDEX SOURCE PT 0.1 INDEX (0.0-0.8); HEPATITIS B SURFACE ANTIGEN NEGATIVE (NEGATIVE)
[2019-08-20 14:00] VITALS: BP 169/67
--- NOTE | 2019-08-20 20:37 | IPN ---
DATE: 08/20/2019 Tobin is slightly grumpy this morning as he was woken up for care. He denies any nausea, vomiting or diarrhea. No complaints. He has a mild cough. LABS: White count on 08/17/2019 was 9.4, hemoglobin 9.7, hematocrit 29.8, platelets 263,mono 13% lymphocytes, 10% monocytes. Sodium 137, potassium 4.3, chloride 106, bicarbonate 24, BUN 23, creatinine 1.4, glucose 103, calcium 8.5. MEDICATIONS: Ampicillin 2 grams IV every 6 hours for osteomyelitis of the right foot. On physical exam, temperature is 97.9, pulse 67, respirations 17, blood pressure 122/91, oxygen saturation (O2 sat) 92% on room air. Heart: Normal, S1, S2, distant. Lungs: A few expiratory rhonchi bilaterally. Abdomen: Emaciated, soft, nontender. Extremities: No edema with contractures. Right foot has an ulcer along the lateral aspect of the foot, status post 4th and 5th amputation. The ulcer is about 1-1/2 cm x 1 cm and 3/4 depth. There is some yellowish discharge. Another more superficial ulcer a little more distally has still a scab overlying it; that ulcer measures about 2-1/2 cm x 1 cm. There is no surrounding cellulitis of the foot. IMPRESSION: Chronic osteomyelitis of the right foot with culture positive for Enterococcus faecalis, status post amputation of 4th and 5th toe, currently on IV ampicillin for a total of 6 weeks with end of therapy planned for 08/23/2019. PLAN: Discontinue IV ampicillin on 08/23/2019. Repeat CBC, basic CRP on 08/23/2019 MTDD
[2019-08-20] MEDS: TAMSULOSIN 0.4 MG CAP PO SCH (21:31)
[2019-08-20] MEDS: VITAMIN D 1,000 INTERNATIONAL UNITS TABLET PO SCH (21:31)
[2019-08-20] MEDS: CYANOCOBALAMIN 500 MCG TAB PO SCH (21:31)
[2019-08-20] MEDS: DONEPEZIL 5 MG TAB PO SCH (21:31)
[2019-08-20 22:00] VITALS: BP 165/85
[2019-08-21] MEDS: AMPICILLIN SOD 2 GM in D5W MINI-BAG PLUS 100 ML IV SCH ×3 (05:38→17:21)
[2019-08-21] MEDS: HEPARIN SOD (PORCINE) 5000UNITS/ML VIAL (J1644 PER 1000UNITS) SQ SCH ×3 (05:38→21:46)
[2019-08-21 06:00] VITALS: BP 134/72
--- NOTE | 2019-08-21 09:06 | IPNPDOC ---
Text Note Date of Service The patient was seen on 08/21/19. NOTE SUBJECTIVE: Noted sleeping comfortably. I woke him up. He was easily arousable. Did not offer any complaints. No issues overnight as per the nurses. PHYSICAL EXAMINATION: VITALS : As below. GENERAL: Awake, oriented to himself only, He is disoriented to time and place. He does answer questions. HEENT: Normocephalic , atraumatic, anicteric eyes, moist mucus membranes. NECK: No jugular venous distention (JVD). No thyromegaly. LUNGS: Diminished but clear to auscultation. No wheezing, rales or rhonchi. s ome basal crackles. HEART: S1, S2. Sinus rhythm. No murmurs, rubs or gallops. ABDOMEN: Soft, nontender, nondistended. Normal active bowel sounds. No hepatosplenomegaly. No rebound or guarding. EXTREMITIES: contracted, right fifth, fourth toe amputated with open ulcer with granulation tissue on the medial part and eschar on the lateral part. Another small ulcer small more medially with scab on it, No pus , small yellow discharge , No foul smell noted. LABORATORY DATA: Reviewed. ASSESSMENT AND PLAN: 86-year-old, FULL CODE, demented gentleman from residential with history of chronic obstructive pulmonary disease (COPD), peripheral vascular disease, Dementia, Hypertension, transferred from [facility] for vascular services due to right second and fifth toe gangrene and treatment for foot infection. The patient was found to have hypertensive urgency and required blood pressure medications, intravenously initially, but currently stable on oral medications. The patient had been on IV Zosyn and vancomycin now discontinued. Initially the wanted the toe to autoamputate. However in May patient was having low grade fevers and it looked like the toe was becoming moist and infected. Ultimately patient had amputation of right fifth toe on 05/25/19 at bedside. Then again in May-June gangrene seemed to have progressed to the fourth and third toes in rapid succession so had further amputations as below. Bone biopsy showed chronic osteomyelitis finishing antibiotic course. At present waiting for placement. Progressing dry Gangrene of the right foot Now Involving third, forth and fifth toes with more and more amputations. 05/25/19: s/p right 5th toe and 5th metatarsal head amputation 06/29/19: s/p right 4th toe and 4th metatarsal head amputation 07/10/19: s/p right 3rd metatarsal head excision and wound debridement, excisional type, including subcutaneous tissue, tendon and bone Bone biopsy positive for chronic osteomyelitis with E faecalis on Ampicillin till 08/23/19 Chronic Osteomyelitis Positive enterococcus in wound cultures on ampicillin as per sensitivities for chronic osteomyelitis Continue ampicillin 2 g IV every 6 hours until 08/23/2019 . PVD reassessed By Vascular on 07/13/19, was also seen in jan 2019 Dr Spence recommended above knee amputation as he has distal tibial disease and as Dr Murphy feels that the wound from a TMA will not heal , patient being non ambulatory BKA is not a good choice this was discussed with and did not want to consider an AKA at this time However the dry gangrene may change anytime to wet rapidly progressing gangrene then we will not have any choice other than AKA to save his life over limb. Dementia : residential replacement. on donepezil and depakote trazodone for insomnia. Dysphagia on dysphagia diet. HCAP (healthcare-associated pneumonia)/ aspiration pneumonia Resolved received several courses of different antibiotics. Pressure ulcers in bilateral heels. Boots are in place. The patient is Pravin lift and turn every hour. Hypertension. on lisinopril Had bradycardia with betablocker. Chronic obstructive pulmonary disease (COPD), compensated. BPH continue flomax. CKD stage 3 creatinine stable. DVT prophylaxis in place. Dispo: intermediate placement. VS,Fishbone, I+O VS, Fishbone, I+O Vital Signs Date Time Temp Pulse Resp B/P (MAP) Pulse Ox O2 Delivery O2 Flow Rate FiO2 08/21/19 06:00 98.0 60 16 134/72 (92) 94 Room Air I&O- Last 24 Hours up to 6 AM 08/21/19 06:00 Intake Total 550 ml Output Total 0 ml Balance 550 ml PARESH BAKER MD August 21, 2019 09:06
[2019-08-21] MEDS: ATORVASTATIN 10 MG TAB PO SCH (09:50)
[2019-08-21] MEDS: CETIRIZINE (ZyrTEC) 10 MG TAB PO SCH (09:50)
[2019-08-21] MEDS: ASPIRIN 81 MG ENTERIC TAB PO SCH (09:50)
[2019-08-21] MEDS: amLODIPine 5 MG TAB PO SCH (09:51)
[2019-08-21] MEDS: NYSTATIN 100,000 UNITS/GM TOPICAL PWD 15 GM TOP SCH ×2 (09:51→21:46)
[2019-08-21 14:00] VITALS: BP 107/56
[2019-08-21] MEDS: VITAMIN D 1,000 INTERNATIONAL UNITS TABLET PO SCH (21:45)
[2019-08-21] MEDS: DONEPEZIL 5 MG TAB PO SCH (21:45)
[2019-08-21] MEDS: CYANOCOBALAMIN 500 MCG TAB PO SCH (21:46)
[2019-08-21] MEDS: TAMSULOSIN 0.4 MG CAP PO SCH (21:46)
[2019-08-21 22:00] VITALS: BP 144/54
[2019-08-22] MEDS: AMPICILLIN SOD 2 GM in D5W MINI-BAG PLUS 100 ML IV SCH ×4 (00:01→18:57)
[2019-08-22] MEDS: HEPARIN SOD (PORCINE) 5000UNITS/ML VIAL (J1644 PER 1000UNITS) SQ SCH ×3 (05:29→21:45)
[2019-08-22 06:00] VITALS: BP 152/69
--- NOTE | 2019-08-22 08:47 | IPNPDOC ---
Text Note Date of Service The patient was seen on 08/22/19. NOTE SUBJECTIVE:awake laying in bed comfortably. Greeted me good morning. Did not offer any complaints. No issues overnight as per the nurses. PHYSICAL EXAMINATION: VITALS : As below. GENERAL: Awake, oriented to himself only, He is disoriented to time and place. He does answer questions. HEENT: Normocephalic , atraumatic, anicteric eyes, moist mucus membranes. NECK: No jugular venous distention (JVD). No thyromegaly. LUNGS: Diminished but clear to auscultation. No wheezing, rales or rhonchi. some basal crackles. HEART: S1, S2. Sinus rhythm. No murmurs, rubs or gallops. ABDOMEN: Soft, nontender, nondistended. Normal active bowel sounds. No hepatosplenomegaly. No rebound or guarding. EXTREMITIES: contracted, right fifth, fourth toe amputated with open ulcer with granulation tissue on the medial part and eschar on the lateral part. Another small ulcer small more medially with scab on it, No pus , small yellow discharge , No foul smell noted. LABORATORY DATA: Reviewed. ASSESSMENT AND PLAN: 86-year-old, FULL CODE, demented gentleman from detention with history of chronic obstructive pulmonary disease (COPD), peripheral vascular disease, Dementia, Hypertension, transferred from [facility] for vascular services due to right second and fifth toe gangrene and treatment for foot infection. The patient was found to have hypertensive urgency and required blood pressure medications, intravenously initially, but currently stable on oral medications. The patient had been on IV Zosyn and vancomycin now discontinued. Initially the wanted the toe to autoamputate. However in May patient was having low grade fevers and it looked like the toe was becoming moist and infected. Ultimately patient had amputation of right fifth toe on 05/25/19 at bedside. Then again in May-June gangrene seemed to have progressed to the fourth and third toes in rapid succession so had further amputations as below. Bone biopsy showed chronic osteomyelitis finishing antibiotic course. At present waiting for placement. Progressing dry Gangrene of the right foot Now Involving third, forth and fifth toes with more and more amputations. 05/25/19: s/p right 5th toe and 5th metatarsal head amputation 06/29/19: s/p right 4th toe and 4th metatarsal head amputation 07/10/19: s/p right 3rd metatarsal head excision and wound debridement, excisional type, including subcutaneous tissue, tendon and bone Bone biopsy positive for chronic osteomyelitis with E faecalis on Ampicillin till 08/23/19 Chronic Osteomyelitis Positive enterococcus in wound cultures on ampicillin as per sensitivities for chronic osteomyelitis Continue ampicillin 2 g IV every 6 hours until 08/23/2019 . PVD reassessed By Vascular on 07/13/19, was also seen in jan 2019 Dr Spence recommended above knee amputation as he has distal tibial disease and as Dr Murphy feels that the wound from a TMA will not heal , patient being non ambulatory BKA is not a good choice this was discussed with and did not want to consider an AKA at this time However the dry gangrene may change anytime to wet rapidly progressing gangrene then we will not have any choice other than AKA to save his life over limb. Dementia : detention replacement. on donepezil and depakote trazodone for insomnia. Dysphagia on dysphagia diet. HCAP (healthcare-associated pneumonia)/ aspiration pneumonia Resolved received several courses of different antibiotics. Pressure ulcers in bilateral heels. Boots are in place. The patient is Pravin lift and turn every hour. Hypertension. on lisinopril Had bradycardia with betablocker. Chronic obstructive pulmonary disease (COPD), compensated. BPH continue flomax. CKD stage 3 creatinine stable. DVT prophylaxis in place. Dispo: [facility] placement. VS,Fishbone, I+O VS, Fishbone, I+O Vital Signs Date Time Temp Pulse Resp B/P (MAP) Pulse Ox O2 Delivery O2 Flow Rate FiO2 08/22/19 06:00 98.3 64 19 152/69 (96) 93 Room Air I&O- Last 24 Hours up to 6 AM 08/22/19 06:00 Intake Total 1070 ml Output Total 100 ml Balance 970 ml PARESH BAKER MD August 22, 2019 08:47
[2019-08-22] MEDS: ASPIRIN 81 MG ENTERIC TAB PO SCH (09:49)
[2019-08-22] MEDS: ATORVASTATIN 10 MG TAB PO SCH (09:49)
[2019-08-22] MEDS: CETIRIZINE (ZyrTEC) 10 MG TAB PO SCH (09:49)
[2019-08-22] MEDS: NYSTATIN 100,000 UNITS/GM TOPICAL PWD 15 GM TOP SCH ×2 (09:50→21:45)
[2019-08-22] MEDS: amLODIPine 5 MG TAB PO SCH (09:50)
[2019-08-22 14:00] VITALS: BP 144/65
[2019-08-22] MEDS: VITAMIN D 1,000 INTERNATIONAL UNITS TABLET PO SCH (21:45)
[2019-08-22] MEDS: TAMSULOSIN 0.4 MG CAP PO SCH (21:45)
[2019-08-22] MEDS: CYANOCOBALAMIN 500 MCG TAB PO SCH (21:45)
[2019-08-22] MEDS: DONEPEZIL 5 MG TAB PO SCH (21:46)
[2019-08-22 22:00] VITALS: BP 151/66
[2019-08-23] MEDS: AMPICILLIN SOD 2 GM in D5W MINI-BAG PLUS 100 ML IV SCH ×2 (00:07→06:11)
[2019-08-23 06:00] VITALS: BP 150/66
[2019-08-23] MEDS: HEPARIN SOD (PORCINE) 5000UNITS/ML VIAL (J1644 PER 1000UNITS) SQ SCH ×3 (06:11→20:31)
[2019-08-23] MEDS: ASPIRIN 81 MG ENTERIC TAB PO SCH (09:46)
[2019-08-23] MEDS: NYSTATIN 100,000 UNITS/GM TOPICAL PWD 15 GM TOP SCH ×2 (09:47→20:36)
[2019-08-23] MEDS: ATORVASTATIN 10 MG TAB PO SCH (09:47)
[2019-08-23] MEDS: CETIRIZINE (ZyrTEC) 10 MG TAB PO SCH (09:47)
[2019-08-23] MEDS: amLODIPine 5 MG TAB PO SCH (09:47)
--- NOTE | 2019-08-23 13:45 | IPNPDOC ---
Text Note Date of Service The patient was seen on 08/23/19. NOTE SUBJECTIVE: Sitting up in recliner, awake and cheerful. Did not offer any complaints. No issues overnight as per the nurses. PHYSICAL EXAMINATION: VITALS : As below. GENERAL: Awake, oriented to himself only, He is disoriented to time and place. He does answer questions. HEENT: Normocephalic , atraumatic, anicteric eyes, moist mucus membranes. NECK: No jugular venous distention (JVD). No thyromegaly. LUNGS: Diminished but clear to auscultation. No wheezing, rales or rhonchi. some basal crackles. HEART: S1, S2. Sinus rhythm. No murmurs, rubs or gallops. ABDOMEN: Soft, nontender, nondistended. Normal active bowel sounds. No hepatosplenomegaly. No rebound or guarding. EXTREMITIES: contracted, right fifth, fourth toe amputated with open ulcer with granulation tissue on the medial part and eschar on the lateral part. Another small ulcer small more medially with scab on it, No pus , small yellow discharge , No foul smell noted. LABORATORY DATA: Reviewed. ASSESSMENT AND PLAN: 86-year-old, FULL CODE, demented gentleman from prison with history of chronic obstructive pulmonary disease (COPD), peripheral vascular disease, Dementia, Hypertension, transferred from [facility] for vascular services due to right second and fifth toe gangrene and treatment for foot infection. The patient was found to have hypertensive urgency and required blood pressure medications, intravenously initially, but currently stable on oral medications. The patient had been on IV Zosyn and vancomycin now di scontinued. Initially the wanted the toe to autoamputate. However in May patient was having low grade fevers and it looked like the toe was becoming moist and infected. Ultimately patient had amputation of right fifth toe on 05/25/19 at bedside. Then again in May-June gangrene seemed to have progressed to the fourth and third toes in rapid succession so had further amp utations as below. Bone biopsy showed chronic osteomyelitis finishing antibiotic course. At present waiting for placement. Progressing dry Gangrene of the right foot Now Involving third, forth and fifth toes with more and more amputations. 05/25/19: s/p right 5th toe and 5th metatarsal head amputation 06/29/19: s/p right 4th toe and 4th metatarsal head amputation 07/10/19: s/p right 3rd metatarsal head excision and wound debridement, excisional type, including subcutaneous tissue, tendon and bone Bone biopsy positive for chronic osteomyelitis with E faecalis on Ampicillin till 08/23/19 Chronic Osteomyelitis Positive enterococcus in wound cultures on ampicillin as per sensitivities for chronic osteomyelitis Continue ampicillin 2 g IV every 6 hours until 08/23/2019 . PVD reassessed By Vascular on 07/13/19, was also seen in jan 2019 Dr Spence recommended above knee amputation as he has distal tibial disease and as Dr Murphy feels that the wound from a TMA will not heal , patient being non ambulatory BKA is not a good choice this was discussed with and did not want to consider an AKA at this time However the dry gangrene may change anytime to wet rapidly progressing gangrene then we will not have any choice other than AKA to save his life over limb. Dementia : prison replacement. on donepezil and depakote trazodone for insomnia. Dysphagia on dysphagia diet. HCAP (healthcare-associated pneumonia)/ aspiration pneumonia Resolved received several courses of different antibiotics. Pressure ulcers in bilateral heels. Boots are in place. The patient is Pravin lift and turn every hour. Hypertension. on lisinopril Had bradycardia with betablocker. Chronic obstructive pulmonary disease (COPD), compensated. BPH continue flomax. CKD stage 3 creatinine stable. DVT prophylaxis in place. Dispo: retirement placement. VS,Fishbone, I+O VS, Fishbone, I+O Vital Signs Date Time Temp Pulse Resp B/P (MAP) Pulse Ox O2 Delivery O2 Flow Rate FiO2 08/23/19 09:47 59 144/66 08/23/19 06:00 98.6 17 94 08/22/19 22:00 Room Air I&O- Last 24 Hours up to 6 AM 08/23/19 06:00 Intake Total 700 ml Output Total 125 ml Balance 575 ml PARESH BAKER MD August 23, 2019 13:45
[2019-08-23 14:00] VITALS: BP 136/66
[2019-08-23 14:32] LABS: BASO # 0.1 10^3/uL (0.0-0.2); BASO % 0.6 % (0.0-1.0); EOS # 0.3 10^3/uL (0.0-0.5); EOS % 4.1 % (0.0-3.0); HEMATOCRIT 31.9 % (42.0-52.0); HEMOGLOBIN 10.4 g/dl (13.5-17.5); LYMPH # 1.1 10^3/uL (1.5-5.0); LYMPH % 13.7 % (24.0-44.0); MEAN CORPUSCULAR HEMOGLOBIN 31.5 pg (27.0-33.0); MEAN CORPUSCULAR HGB CONC 32.6 g/dl (32.0-36.5); MEAN CORPUSCULAR VOLUME 96.7 fl (80.0-96.0); MONO # 0.7 10^3/uL (0.0-0.8); MONO % 8.4 % (0.0-5.0); NEUTROPHILS # 5.9 10^3/uL (1.5-8.5); NEUTROPHILS % 72.5 % (36.0-66.0); PLATELET COUNT, AUTOMATED 338 10^3/uL (150-450); WHITE BLOOD COUNT 8.1 10^3/uL (4.0-10.0)
[2019-08-23 14:49] LABS: CALCIUM LEVEL 8.8 MG/DL (8.8-10.2); CREATININE FOR GFR 1.39 MG/DL (0.70-1.30); GLOMERULAR FILTRATION RATE 51.7 (>35)
[2019-08-23] MEDS: TAMSULOSIN 0.4 MG CAP PO SCH (20:30)
[2019-08-23] MEDS: DONEPEZIL 5 MG TAB PO SCH (20:31)
[2019-08-23] MEDS: CYANOCOBALAMIN 500 MCG TAB PO SCH (20:31)
[2019-08-23] MEDS: VITAMIN D 1,000 INTERNATIONAL UNITS TABLET PO SCH (20:31)
[2019-08-23 22:00] VITALS: BP 147/64
[2019-08-24] MEDS: HEPARIN SOD (PORCINE) 5000UNITS/ML VIAL (J1644 PER 1000UNITS) SQ SCH ×3 (05:13→21:23)
[2019-08-24 06:00] VITALS: BP 148/63
[2019-08-24 08:06] LABS: HEMATOCRIT 32.3 % (42.0-52.0); HEMOGLOBIN 10.6 g/dl (13.5-17.5); MEAN CORPUSCULAR HEMOGLOBIN 31.7 pg (27.0-33.0); MEAN CORPUSCULAR HGB CONC 32.8 g/dl (32.0-36.5); MEAN CORPUSCULAR VOLUME 96.7 fl (80.0-96.0); PLATELET COUNT, AUTOMATED 355 10^3/uL (150-450); RED BLOOD COUNT 3.34 10^6/uL (4.30-6.10); WHITE BLOOD COUNT 12.2 10^3/uL (4.0-10.0)
[2019-08-24] MEDS: NYSTATIN 100,000 UNITS/GM TOPICAL PWD 15 GM TOP SCH ×2 (08:17→21:24)
[2019-08-24] MEDS: amLODIPine 5 MG TAB PO SCH (08:17)
[2019-08-24] MEDS: CETIRIZINE (ZyrTEC) 10 MG TAB PO SCH (08:17)
[2019-08-24] MEDS: ASPIRIN 81 MG ENTERIC TAB PO SCH (08:17)
[2019-08-24] MEDS: ATORVASTATIN 10 MG TAB PO SCH (08:17)
[2019-08-24 08:35] LABS: CREATININE FOR GFR 1.39 MG/DL (0.70-1.30); GLOMERULAR FILTRATION RATE 51.7 (>35)
[2019-08-24] MEDS: VITAMIN D 1,000 INTERNATIONAL UNITS TABLET PO SCH (21:23)
[2019-08-24] MEDS: CYANOCOBALAMIN 500 MCG TAB PO SCH (21:23)
[2019-08-24] MEDS: DONEPEZIL 5 MG TAB PO SCH (21:23)
[2019-08-24] MEDS: TAMSULOSIN 0.4 MG CAP PO SCH (21:23)
[2019-08-25] MEDS: HEPARIN SOD (PORCINE) 5000UNITS/ML VIAL (J1644 PER 1000UNITS) SQ SCH ×3 (05:03→23:05)
[2019-08-25 06:00] VITALS: BP 160/71
[2019-08-25] MEDS: amLODIPine 5 MG TAB PO SCH (09:00)
[2019-08-25] MEDS: ASPIRIN 81 MG ENTERIC TAB PO SCH (09:36)
[2019-08-25] MEDS: CETIRIZINE (ZyrTEC) 10 MG TAB PO SCH (09:36)
[2019-08-25] MEDS: NYSTATIN 100,000 UNITS/GM TOPICAL PWD 15 GM TOP SCH ×2 (09:36→20:37)
[2019-08-25] MEDS: ATORVASTATIN 10 MG TAB PO SCH (09:36)
[2019-08-25] MEDS: DONEPEZIL 5 MG TAB PO SCH (20:36)
[2019-08-25] MEDS: TAMSULOSIN 0.4 MG CAP PO SCH (20:36)
[2019-08-25] MEDS: VITAMIN D 1,000 INTERNATIONAL UNITS TABLET PO SCH (20:36)
[2019-08-25] MEDS: CYANOCOBALAMIN 500 MCG TAB PO SCH (20:37)
[2019-08-26] MEDS: HEPARIN SOD (PORCINE) 5000UNITS/ML VIAL (J1644 PER 1000UNITS) SQ SCH ×3 (05:46→21:06)
[2019-08-26 06:00] VITALS: BP 165/79
[2019-08-26] MEDS: ATORVASTATIN 10 MG TAB PO SCH (08:00)
[2019-08-26] MEDS: NYSTATIN 100,000 UNITS/GM TOPICAL PWD 15 GM TOP SCH ×2 (08:00→21:07)
[2019-08-26] MEDS: CETIRIZINE (ZyrTEC) 10 MG TAB PO SCH (08:00)
[2019-08-26] MEDS: ASPIRIN 81 MG ENTERIC TAB PO SCH (08:00)
[2019-08-26] MEDS: amLODIPine 5 MG TAB PO SCH (08:00)
[2019-08-26] MEDS: CYANOCOBALAMIN 500 MCG TAB PO SCH (21:06)
[2019-08-26] MEDS: VITAMIN D 1,000 INTERNATIONAL UNITS TABLET PO SCH (21:06)
[2019-08-26] MEDS: DONEPEZIL 5 MG TAB PO SCH (21:06)
[2019-08-26] MEDS: TAMSULOSIN 0.4 MG CAP PO SCH (21:06)
[2019-08-27 06:00] VITALS: BP 132/60
[2019-08-27] MEDS: HEPARIN SOD (PORCINE) 5000UNITS/ML VIAL (J1644 PER 1000UNITS) SQ SCH ×3 (06:30→21:41)
[2019-08-27] MEDS: ASPIRIN 81 MG ENTERIC TAB PO SCH (08:12)
[2019-08-27] MEDS: ATORVASTATIN 10 MG TAB PO SCH (08:12)
[2019-08-27] MEDS: CETIRIZINE (ZyrTEC) 10 MG TAB PO SCH (08:12)
[2019-08-27] MEDS: amLODIPine 5 MG TAB PO SCH (08:13)
[2019-08-27] MEDS: NYSTATIN 100,000 UNITS/GM TOPICAL PWD 15 GM TOP SCH ×2 (08:13→21:42)
--- NOTE | 2019-08-27 12:59 | IPNPDOC ---
Text Note Date of Service The patient was seen on 08/24/19. NOTE SUBJECTIVE: No issues overnight. No complaints this morning. PHYSICAL EXAMINATION: VITALS : As below. HDS, afebrile, breathing comfortably on room air GENERAL: Alert, awake, NAD HEENT: NCAT, EOMI, anicteric, MMM NECK: supple, no JVD LUNGS: Diminished sounds throughout without crackles or wheezing HEART: RRR, no mrg ABDOMEN: Normoactive bowel sounds, soft, NTND EXTREMITIES: contracted, right 4th and 5th toe amputated with open ulcer with granulation tissue on the medial part and eschar on the lateral part, stable. Another small ulcer small more medially with scab on it, No noted pus or foul smell. LABORATORY DATA: Reviewed. WBC 8.1, Hgb 10.4, platelets 338, na 136, K 4, Cr 1.39 ASSESSMENT AND PLAN: 86-year-old M with a history of COPD, PVD, Dementia, HTN who was transferred from [facility] for vascular services due to right second and fifth toe gangrene and treatment for foot infection, now s/p right fifth toe on 05/25/19 c/b progression to the fourth and third toes in rapid succession so had further amputations with biopsy proven chronic osteomyelitis on antibiotics now pending placement. Progressive dry Gangrene of the right foot -05/25/19: s/p right 5th toe and 5th metatarsal head amputation -06/29/19: s/p right 4th toe and 4th metatarsal head amputation -07/10/19: s/p right 3rd metatarsal head excision and wound debridement, excision al type, including subcutaneous tissue, tendon and bone -Bone biopsy positive for chronic osteomyelitis with E faecalis -Was on Ampicillin completed 08/23/19 Chronic Osteomyelitis on bone biopsy, with cultures that grew amp sensitive E.fecalis -s/p ampicillin 2 g IV every 6 hours, that was completed on 08/23/2019 PVD: Was reassessed By Vascular on 07/13/19 -Dr Spence recommended above knee amputation as he has distal tibial disease and Dr Murphy feels that the wound from a TMA will not heal , patient being non ambulatory BKA is not a good choice, was discussed with and she did not wa nt to consider an AKA at this time Dementia: pending long term placement -on donepezil and depakote -trazodone for insomnia. Dysphagia -on dysphagia diet. HCAP (healthcare-associated pneumonia)/ aspiration pneumonia: Resolved -s/p several courses of different antibiotics. Pressure ulcers in bilateral heels. -Boots are in place. -Pravin lift with turn every hour. Hypertension. -continue lisinopril -Of note, had significant bradycardia with betablocker. COPD: compensated. BPH continue flomax. CKD stage 3 -creatinine stable. DVT prophylaxis: heparin SQ TID 5000u Dispo:Pending long term placement. ALC status. VS,Fishbone, I+O VS, Fishbone, I+O Laboratory Tests 08/23/19 14:05 Vital Signs Date Time Temp Pulse Resp B/P (MAP) Pulse Ox O2 Delivery O2 Flow Rate FiO2 08/24/19 06:00 97.1 64 18 148/63 (91) 91 Room Air I&O- Last 24 Hours up to 6 AM 08/24/19 06:00 Intake Total 460 ml Output Total 0 ml Balance 460 ml GENNA PRIETO MD August 24, 2019 08:01
[2019-08-27] MEDS: VITAMIN D 1,000 INTERNATIONAL UNITS TABLET PO SCH (21:41)
[2019-08-27] MEDS: DONEPEZIL 5 MG TAB PO SCH (21:41)
[2019-08-27] MEDS: CYANOCOBALAMIN 500 MCG TAB PO SCH (21:41)
[2019-08-27] MEDS: TAMSULOSIN 0.4 MG CAP PO SCH (21:41)
[2019-08-28] MEDS: HEPARIN SOD (PORCINE) 5000UNITS/ML VIAL (J1644 PER 1000UNITS) SQ SCH ×3 (06:00→21:35)
[2019-08-28] MEDS: amLODIPine 5 MG TAB PO SCH (09:00)
[2019-08-28] MEDS: ASPIRIN 81 MG ENTERIC TAB PO SCH (10:34)
[2019-08-28] MEDS: ATORVASTATIN 10 MG TAB PO SCH (10:34)
[2019-08-28] MEDS: NYSTATIN 100,000 UNITS/GM TOPICAL PWD 15 GM TOP SCH ×2 (10:34→21:34)
[2019-08-28] MEDS: CETIRIZINE (ZyrTEC) 10 MG TAB PO SCH (10:34)
[2019-08-28] MEDS: TAMSULOSIN 0.4 MG CAP PO SCH (21:34)
[2019-08-28] MEDS: CYANOCOBALAMIN 500 MCG TAB PO SCH (21:34)
[2019-08-28] MEDS: DONEPEZIL 5 MG TAB PO SCH (21:34)
[2019-08-28] MEDS: VITAMIN D 1,000 INTERNATIONAL UNITS TABLET PO SCH (21:34)
[2019-08-29] MEDS: HEPARIN SOD (PORCINE) 5000UNITS/ML VIAL (J1644 PER 1000UNITS) SQ SCH ×3 (05:38→21:20)
[2019-08-29 06:00] VITALS: BP 160/61
[2019-08-29] MEDS: ASPIRIN 81 MG ENTERIC TAB PO SCH (09:04)
[2019-08-29] MEDS: NYSTATIN 100,000 UNITS/GM TOPICAL PWD 15 GM TOP SCH ×2 (09:04→21:21)
[2019-08-29] MEDS: CETIRIZINE (ZyrTEC) 10 MG TAB PO SCH (09:04)
[2019-08-29] MEDS: ATORVASTATIN 10 MG TAB PO SCH (09:04)
[2019-08-29] MEDS: amLODIPine 5 MG TAB PO SCH (09:05)
[2019-08-29] MEDS: CYANOCOBALAMIN 500 MCG TAB PO SCH (21:21)
[2019-08-29] MEDS: TAMSULOSIN 0.4 MG CAP PO SCH (21:21)
[2019-08-29] MEDS: VITAMIN D 1,000 INTERNATIONAL UNITS TABLET PO SCH (21:21)
[2019-08-29] MEDS: DONEPEZIL 5 MG TAB PO SCH (21:21)
[2019-08-30] MEDS: HEPARIN SOD (PORCINE) 5000UNITS/ML VIAL (J1644 PER 1000UNITS) SQ SCH ×5 (05:46→21:11)
[2019-08-30 06:00] VITALS: BP 138/72
[2019-08-30] MEDS: amLODIPine 5 MG TAB PO SCH (11:52)
[2019-08-30] MEDS: ASPIRIN 81 MG ENTERIC TAB PO SCH (11:52)
[2019-08-30] MEDS: ATORVASTATIN 10 MG TAB PO SCH (11:52)
[2019-08-30] MEDS: CETIRIZINE (ZyrTEC) 10 MG TAB PO SCH (11:52)
[2019-08-30] MEDS: NYSTATIN 100,000 UNITS/GM TOPICAL PWD 15 GM TOP SCH ×2 (11:53→21:08)
[2019-08-30] MEDS: DONEPEZIL 5 MG TAB PO SCH (21:07)
[2019-08-30] MEDS: VITAMIN D 1,000 INTERNATIONAL UNITS TABLET PO SCH (21:07)
[2019-08-30] MEDS: CYANOCOBALAMIN 500 MCG TAB PO SCH (21:08)
[2019-08-30] MEDS: TAMSULOSIN 0.4 MG CAP PO SCH (21:08)
[2019-08-31] MEDS: HEPARIN SOD (PORCINE) 5000UNITS/ML VIAL (J1644 PER 1000UNITS) SQ SCH ×3 (05:40→21:06)
[2019-08-31 06:00] VITALS: BP 147/64
[2019-08-31] MEDS: ASPIRIN 81 MG ENTERIC TAB PO SCH (14:05)
[2019-08-31] MEDS: ATORVASTATIN 10 MG TAB PO SCH (14:05)
[2019-08-31] MEDS: amLODIPine 5 MG TAB PO SCH (14:06)
[2019-08-31] MEDS: CETIRIZINE (ZyrTEC) 10 MG TAB PO SCH (14:06)
[2019-08-31] MEDS: NYSTATIN 100,000 UNITS/GM TOPICAL PWD 15 GM TOP SCH ×2 (14:07→20:20)
[2019-08-31] MEDS: DONEPEZIL 5 MG TAB PO SCH (20:19)
[2019-08-31] MEDS: TAMSULOSIN 0.4 MG CAP PO SCH (20:19)
[2019-08-31] MEDS: VITAMIN D 1,000 INTERNATIONAL UNITS TABLET PO SCH (20:19)
[2019-08-31] MEDS: CYANOCOBALAMIN 500 MCG TAB PO SCH (20:19)
[2019-09-01 06:00] VITALS: BP 137/59
[2019-09-01] MEDS: HEPARIN SOD (PORCINE) 5000UNITS/ML VIAL (J1644 PER 1000UNITS) SQ SCH ×3 (06:23→21:24)
[2019-09-01] MEDS: amLODIPine 5 MG TAB PO SCH (09:00)
[2019-09-01] MEDS: NYSTATIN 100,000 UNITS/GM TOPICAL PWD 15 GM TOP SCH ×2 (09:55→21:25)
[2019-09-01] MEDS: ATORVASTATIN 10 MG TAB PO SCH (09:55)
[2019-09-01] MEDS: CETIRIZINE (ZyrTEC) 10 MG TAB PO SCH (09:55)
[2019-09-01] MEDS: ASPIRIN 81 MG ENTERIC TAB PO SCH (09:55)
[2019-09-01 21:24] LABS: INR 1.1; PROTHROMBIN TIME 13.9 SECONDS (11.8-14.0)
[2019-09-01] MEDS: TAMSULOSIN 0.4 MG CAP PO SCH (21:25)
[2019-09-01] MEDS: CYANOCOBALAMIN 500 MCG TAB PO SCH (21:25)
[2019-09-01] MEDS: DONEPEZIL 5 MG TAB PO SCH (21:25)
[2019-09-01] MEDS: VITAMIN D 1,000 INTERNATIONAL UNITS TABLET PO SCH (21:25)
[2019-09-02] MEDS: HEPARIN SOD (PORCINE) 5000UNITS/ML VIAL (J1644 PER 1000UNITS) SQ SCH ×3 (05:50→21:03)
[2019-09-02 06:00] VITALS: BP 123/76
[2019-09-02] MEDS: amLODIPine 5 MG TAB PO SCH (09:00)
[2019-09-02] MEDS: ASPIRIN 81 MG ENTERIC TAB PO SCH (09:07)
[2019-09-02] MEDS: CETIRIZINE (ZyrTEC) 10 MG TAB PO SCH (09:07)
[2019-09-02] MEDS: NYSTATIN 100,000 UNITS/GM TOPICAL PWD 15 GM TOP SCH ×2 (09:07→21:03)
[2019-09-02] MEDS: ATORVASTATIN 10 MG TAB PO SCH (09:07)
--- NOTE | 2019-09-02 19:22 | IPNPDOC ---
Date Seen The patient was seen on 09/02/19. Progress Note SUBJECTIVE: No acute complaints overnight. Denies chest pain, n/v/d, shortness of breath. PHYSICAL EXAMINATION: VITALS : As below. HDS, afebrile, breathing comfortably on room air GENERAL: Alert, awake, NAD HEENT: NCAT, EOMI, anicteric, MMM NECK: supple, no JVD LUNGS: Diminished sounds throughout without crackles or wheezing HEART: RRR, no mrg ABDOMEN: Normoactive bowel sounds, soft, NTND EXTREMITIES: contracted, right 4th and 5th toe amputated with open ulcer with granulation tissue on the medial part and eschar on the lateral part, stable. LABORATORY DATA: Please see below, past labs reviewed. 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 PLAN: 1. Distal dried gangrene, with recent third metatarsal head excision and wound debridement, excisional type, including subcutaneous tissue, tendon and bone 07/10/19. 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 Not vascular candidate for intervention/surgery. Wound care. Awaiting detention placement. Well known to ID and podiatry services. 2. Chronic osteomyelitis. Positive enterococcus and wound cultures on ampicillin as per sensitivities. Pressure ulcers in bilateral heels. Boots are in place. Completed Ampicillin 2 gm Q6 hrs 08/23/19. 3. BPH, chronic. Continue present medications 4. Dementia, chronic. Continue present medications 5. HTN, chronic. Continue present medications 6. DVT px. Heparin. DISPOSITION: C/w treatment above. Awaiting placement to SNF. ALS status. VS, I&O, 24H, Christoferbone Vital Signs/I&O Vital Signs Date Time Temp Pulse Resp B/P (MAP) Pulse Ox O2 Delivery O2 Flow Rate FiO2 09/02/19 09:00 68 139/66 09/02/19 06:00 98.6 19 95 Room Air I&O- Last 24 Hours up to 6 AM 09/02/19 06:00 Intake Total 480 ml Output Total 100 ml Balance 380 ml Laboratory Data 24H LABS Laboratory Tests 2 09/01/19 20:57: Prothrombin Time 13.9, Prothromb Time International Ratio 1.10 Current Medications Current Medications Medications (Trade) Dose Ordered Sig/Hubert Route PRN Reason Start Time Stop Time Status Last Admin Dose Admin Acetaminophen (Tylenol Tab) 650 mg Q4H PRN PO PAIN OR FEVER 02/12/19 02:30 08/08/19 22:22 Amlodipine Besylate (Norvasc) 2.5 mg BID PO 07/12/19 02:30 07/12/19 10:15 DC 07/12/19 08:17 Amlodipine Besylate (Norvasc) 2.5 mg DAILY PO 08/07/19 09:00 08/14/19 07:59 DC 08/13/19 08:42 Amlodipine Besylate (Norvasc) 5 mg BID PO 02/21/19 09:00 02/21/19 08:44 DC Amlodipine Besylate (Norvasc) 5 mg DAILY PO 05/10/19 09:00 05/10/19 09:32 DC Amlodipine Besylate (Norvasc) 5 mg DAILY PO 08/14/19 09:00 08/31/19 14:06 Amlodipine Besylate (Norvasc) 5 mg QHS PO 04/20/19 21:00 04/29/19 14:56 DC 04/28/19 20:47 Amlodipine Besylate (Norvasc) 10 mg DAILY PO 05/03/19 09:00 05/09/19 09:24 DC 05/07/19 08:07 Amlodipine Besylate (Norvasc) 10 mg DAILY PO 02/12/19 09:00 02/13/19 09:42 DC 02/13/19 08:52 Amlodipine Besylate (Norvasc) 10 mg DAILY PO 02/13/19 09:00 02/13/19 09:45 DC Amlodipine Besylate (Norvasc) 10 mg DAILY PO 02/14/19 09:00 02/21/19 06:46 DC 02/19/19 08:33 Amlodipine Besylate (Norvasc) 10 mg QHS PO 02/21/19 21:00 04/20/19 15:21 DC 04/19/19 20:12 Amoxicillin/ Clavulanate Potassium (Augmentin) 500 mg BID PO 05/01/19 10:00 05/09/19 07:52 DC 05/08/19 19:47 Amoxicillin/ Clavulanate Potassium (Augmentin) 500 mg BID PO 03/07/19 21:00 03/12/19 10:33 DC 03/12/19 09:04 Amoxicillin/ Clavulanate Potassium (Augmentin) 875 mg BID PO 05/01/19 21:00 UNV Amoxicillin/ Clavulanate Potassium (Augmentin) 875 mg BID PO 02/15/19 09:00 02/22/19 08:59 DC 02/21/19 20:29 Ampicillin Sodium 2 gm/Dextrose 100 ml @ 200 mls/hr Q6H IV 07/20/19 17:00 07/27/19 13:44 DC 07/27/19 04:31 Ampicillin Sodium 2 gm/Dextrose 100 ml @ 200 mls/hr Q6H IV 07/27/19 14:00 07/28/19 10:39 DC 07/28/19 09:24 Ampicillin Sodium 2 gm/Dextrose 100 ml @ 200 mls/hr Q6H IV 08/04/19 12:00 08/23/19 11:59 DC 08/23/19 06:11 Ampicillin Sodium/ Sulbactam Sodium 1.5 gm/Dextrose 50 ml @ 100 mls/hr Q6H IV 02/12/19 05:00 02/15/19 09:27 DC 02/15/19 05:19 Ampicillin Sodium/ Sulbactam Sodium 3 gm/Dextrose 100 ml @ 200 mls/hr Q12H IV 03/06/19 23:00 03/07/19 17:17 DC 03/07/19 11:39 Aspirin (Ecotrin) 81 mg DAILY PO 08/15/19 09:00 09/02/19 09:07 Atenolol (Tenormin) 12.5 mg BID PO 02/13/19 09:00 02/15/19 14:32 DC 02/14/19 20:57 Atorvastatin Calcium (Lipitor) 10 mg DAILY PO 08/15/19 09:00 09/02/19 09:07 Azithromycin (Zithromax Tab) 500 mg DAILY PO 03/07/19 09:00 03/13/19 14:18 DC 03/13/19 10:03 Azithromycin 500 mg/IV Miscellaneous Supplies 1 each/ Dextrose 255 ml @ 255 mls/hr Q24H IV 03/06/19 00:00 03/07/19 17:17 DC 03/07/19 00:44 Bisacodyl (Dulcolax Suppository) 10 mg Q2DP PRN [place] CONSTIPATION 02/12/19 18:45 02/13/19 14:23 Cephalexin Monohydrate (Keflex) 500 mg BID PO 05/25/19 09:00 06/07/19 23:59 DC 06/07/19 21:47 Cephalexin Monohydrate (Keflex) 500 mg Q12H PO 06/29/19 09:00 07/08/19 08:59 DC 07/07/19 20:39 Cetirizine HCl (ZyrTEC) 10 mg DAILY PO 02/14/19 09:00 09/02/19 09:07 Cyanocobalamin (Vitamin B12) 500 mcg QHS PO 02/12/19 21:00 09/01/19 21:25 Dextrose/Lactated Ringer's 1,000 ml @ 40 mls/hr Q24H IV 02/12/19 02:30 02/12/19 17:11 DC 02/12/19 03:12 Divalproex Sodium (Depakote Er) 500 mg QHS PO 02/12/19 21:00 08/01/19 13:32 DC 07/31/19 21:04 Docusate Sodium (Colace) 100 mg Q12HP PRN PO CONSTIPATION 05/03/19 11:45 07/19/19 20:51 Donepezil HCl (AriCEPT) 10 mg QHS PO 02/12/19 21:00 09/01/19 21:25 Enoxaparin Sodium (Lovenox) 30 mg DAILY SC 02/15/19 09:00 07/25/19 08:03 DC 07/24/19 08:46 Furosemide (LASIX injection) 40 mg DAILY IV 07/26/19 09:00 07/27/19 13:01 DC 07/27/19 10:21 Guaifenesin (Mucinex Tab Er) 600 mg BID PO 07/25/19 21:00 07/25/19 17:37 DC Guaifenesin (Robitussin) 10 ml Q4HP PRN PO COUGH 07/25/19 17:45 07/25/19 18:41 Heparin Sodium (Porcine) (Heparin) 5,000 units Q8H SQ 07/25/19 14:00 09/02/19 14:44 Home Med (Med Rec Complete!) ASDIRECTED XX 11/15/19 04:00 02/12/19 04:05 DC Hydralazine HCl (Apresoline) 10 mg Q4H IV 02/12/19 14:00 02/13/19 07:26 DC 02/13/19 05:23 Hydralazine HCl (Apresoline) 20 mg Q6H PO 02/12/19 12:00 02/12/19 13:20 DC Hydralazine HCl (Apresoline) 25 mg QID PO 02/13/19 09:00 02/17/19 12:49 DC 02/17/19 11:08 Isosorbide Dinitrate (Isordil) 20 mg Q6H PO 02/13/19 18:00 02/17/19 12:49 DC 02/17/19 11:06 Labetalol HCl (Normodyne, Trandate) 2 mg Q6HP PRN IV BP > 160/100 02/12/19 03:45 02/12/19 12:21 DC Lactated Ringer's 1,000 ml @ 75 mls/hr [id number] IV 04/28/19 08:15 04/29/19 08:06 DC 04/28/19 20:48 Lactated Ringer's 1,000 ml @ 75 mls/hr [id number] IV 04/29/19 14:30 05/01/19 07:51 DC 04/30/19 19:00 Levofloxacin (Levaquin) 250 mg Q24H PO 05/30/19 22:00 06/12/19 23:59 DC 06/12/19 21:39 Levofloxacin (Levaquin) 750 mg Q48H PO 07/01/19 06:00 07/09/19 10:00 DC 07/09/19 10:07 Levofloxacin (Levaquin) 750 mg Q48H PO 07/26/19 18:00 07/27/19 13:05 DC 07/26/19 19:46 Lisinopril (Prinivil) 5 mg DAILY PO 07/12/19 02:30 07/12/19 10:15 DC 07/12/19 02:57 Lisinopril (Prinivil) 5 mg QHS PO 07/15/19 21:00 07/25/19 08:03 DC 07/24/19 22:18 Lisinopril (Prinivil) 5 mg QHS PO 02/21/19 21:00 04/29/19 14:56 DC 04/28/19 20:46 Lisinopril (Prinivil) 10 mg DAILY PO 05/03/19 09:00 05/09/19 09:24 DC 05/07/19 08:07 Lisinopril (Prinivil) 10 mg QHS PO 05/09/19 21:00 07/09/19 09:01 DC 07/08/19 21:36 Lisinopril (Prinivil) 10 mg QHS PO 02/17/19 21:00 02/21/19 06:43 DC 02/20/19 20:31 Lisinopril (Prinivil) 10 mg QHS PO 02/21/19 21:00 02/21/19 08:44 DC Lisinopril (Prinivil) 20 mg QHS PO 02/21/19 21:00 02/21/19 06:46 DC Magnesium Hydroxide (Milk Of Magnesia) 30 ml DAILYPRN PRN PO CONSTIPATION 02/12/19 19:00 02/13/19 08:57 Metronidazole (Flagyl) 500 mg Q8H PO 05/01/19 14:00 05/03/19 10:32 DC 05/03/19 06:56 Miscellaneous (Unresolved Clarification Entry) SEE LABEL COMMENTS DAILY XX 04/15/19 09:00 Cancel Miscellaneous (Unresolved Clarification Entry) SEE LABEL COMMENTS DAILY XX 04/21/19 09:00 04/21/19 16:34 DC Miscellaneous (Unresolved Clarification Entry) SEE LABEL COMMENTS DAILY XX 05/17/19 09:00 05/17/19 11:43 DC Miscellaneous (Unresolved Clarification Entry) SEE LABEL COMMENTS DAILY XX 05/23/19 09:00 05/24/19 12:03 DC Miscellaneous (Unresolved Clarification Entry) SEE LABEL COMMENTS DAILY XX 05/05/19 09:00 05/05/19 11:26 DC Miscellaneous (Unresolved Clarification Entry) SEE LABEL COMMENTS DAILY XX 06/18/19 09:00 06/20/19 08:54 DC Miscellaneous (Unresolved Clarification Entry) SEE LABEL COMMENTS DAILY XX 06/25/19 09:00 06/25/19 11:30 DC Miscellaneous (Unresolved Clarification Entry) SEE LABEL COMMENTS DAILY XX 07/11/19 09:00 07/11/19 11:57 DC Miscellaneous (Unresolved Clarification Entry) SEE LABEL COMMENTS DAILY XX 08/15/19 09:00 08/15/19 13:56 DC Miscellaneous (Unresolved Clarification Entry) SEE LABEL COMMENTS DAILY XX 02/21/19 09:00 02/22/19 06:40 DC Miscellaneous (Unresolved Clarification Entry) SEE LABEL COMMENTS DAILY XX 02/22/19 09:00 02/22/19 12:30 DC Miscellaneous (Unresolved Clarification Entry) SEE LABEL COMMENTS DAILY XX 02/26/19 09:00 02/26/19 12:38 DC Miscellaneous (Unresolved Clarification Entry) SEE LABEL COMMENTS DAILY XX 03/15/19 09:00 03/15/19 10:31 DC Miscellaneous (Unresolved Clarification Entry) SEE LABEL COMMENTS DAILY XX 03/25/19 09:00 03/25/19 12:55 DC Nitroglycerin (Nitrobid 2%) HOLD FOR SBP<140 1 INCH Q4H TOP 02/12/19 13:00 02/13/19 09:28 DC 02/13/19 08:53 Nystatin (Mycostatin Powder, Nystop) groin BID TOP 06/10/19 09:00 09/02/19 09:07 Piperacillin Sod/ Tazobactam Sod 2.25 gm/Dextrose 50 ml @ 100 mls/hr Q6H IV 07/09/19 14:00 07/12/19 08:42 DC 07/12/19 08:16 Piperacillin Sod/ Tazobactam Sod 2.25 gm/Dextrose 50 ml @ 100 mls/hr Q6H IV 07/28/19 12:00 08/04/19 08:00 DC 08/04/19 05:19 Piperacillin Sod/ Tazobactam Sod 3.375 gm/Dextrose 50 ml @ 50 mls/hr Q6H IV 04/29/19 15:00 05/01/19 07:51 DC 05/01/19 03:19 Piperacillin Sod/ Tazobactam Sod 3.375 gm/Dextrose 50 ml @ 50 mls/hr Q6H IV 07/09/19 14:00 07/09/19 13:52 DC Piperacillin Sod/ Tazobactam Sod 3.375 gm/Dextrose 50 ml @ 50 mls/hr Q6H IV 07/28/19 10:45 07/28/19 10:45 DC Sodium Biphosphate/ Sodium Phosphate (Fleet Enema) 1 ea Q3DP PRN [place] CONSTIPATION 02/12/19 19:00 Sodium Chloride 1,000 ml @ 60 mls/hr [id number] IV 07/25/19 08:15 07/26/19 08:40 DC 07/25/19 16:28 Sodium Chloride 1,000 ml @ 80 mls/hr [id number] IV 07/09/19 09:00 07/11/19 14:05 DC 07/11/19 08:49 Sodium Chloride 1,000 ml @ 80 mls/hr [id number] IV 07/24/19 09:00 07/25/19 05:45 DC 07/24/19 22:17 Sodium Chloride (Oliver Nasal Hopkins) 2 spray Q2HP PRN NA NASAL DRYNESS 02/13/19 09:30 Sodium Chloride (Oliver Nasal Hopkins) 2 spray TID NA 02/13/19 09:00 03/18/19 09:01 DC 03/17/19 21:33 Tamsulosin HCl (Flomax) 0.4 mg QHS PO 02/12/19 21:00 09/01/19 21:25 Trazodone HCl (Desyrel) 25 mg QHSP PRN PO INSOMNIA 02/21/19 06:45 04/23/19 01:42 Valproic Acid (Depakene Solution) 250 mg BID PO 08/01/19 21:00 08/13/19 08:38 DC 08/12/19 21:06 Vancomycin HCl 500 mg/Dextrose 110 ml @ 110 mls/hr Q24H IV 07/19/19 12:00 07/20/19 12:22 DC 07/19/19 12:13 Vancomycin HCl 500 mg/IV Miscellaneous Supplies 10 ml @ 10 mls/hr Q8H IV 07/12/19 08:45 07/12/19 09:07 DC Vancomycin HCl 750 mg/IV Miscellaneous Supplies 1 each/ Dextrose 275 ml @ 275 mls/hr Q12H IV 02/12/19 02:30 02/12/19 05:32 DC Vancomycin HCl 750 mg/IV Miscellaneous Supplies 1 each/ Dextrose 275 ml @ 275 mls/hr Q24H IV 04/29/19 16:00 04/30/19 12:06 DC 04/29/19 16:50 Vancomycin HCl 750 mg/IV Miscellaneous Supplies 1 each/ Dextrose 275 ml @ 275 mls/hr Q24H IV 07/16/19 10:00 07/19/19 09:32 DC 07/18/19 09:57 Vancomycin HCl 750 mg/IV Miscellaneous Supplies 1 each/ Dextrose 275 ml @ 275 mls/hr Q24H IV 07/27/19 09:00 07/27/19 13:01 DC 07/27/19 10:21 Vancomycin HCl 750 mg/IV Miscellaneous Supplies 1 each/ Dextrose 275 ml @ 275 mls/hr Q36H IV 07/20/19 19:00 07/20/19 14:57 DC Vancomycin HCl 1000 mg/IV Miscellaneous Supplies 1 each/ Dextrose 270 ml @ 270 mls/hr Q18H IV 02/12/19 06:00 02/15/19 06:02 DC 02/14/19 11:20 Vancomycin HCl 1000 mg/IV Miscellaneous Supplies 1 each/ Dextrose 270 ml @ 270 mls/hr Q24H IV 07/13/19 07:00 07/16/19 06:45 DC 07/15/19 07:06 Vancomycin HCl 1000 mg/IV Miscellaneous Supplies 1 each/ Dextrose 270 ml @ 270 mls/hr Q24H IV 02/15/19 12:00 02/15/19 09:27 DC Vitamin D (Vitamin D) 1,000 units QPM PO 02/12/19 21:00 09/01/19 21:25 Allergies Coded Allergies: No Known Allergies (Unverified , 12/09/18) Radha Delgado MD Sep 02, 2019 19:22
[2019-09-02] MEDS: VITAMIN D 1,000 INTERNATIONAL UNITS TABLET PO SCH (21:03)
[2019-09-02] MEDS: TAMSULOSIN 0.4 MG CAP PO SCH (21:03)
[2019-09-02] MEDS: CYANOCOBALAMIN 500 MCG TAB PO SCH (21:03)
[2019-09-02] MEDS: DONEPEZIL 5 MG TAB PO SCH (21:03)
[2019-09-03] MEDS: HEPARIN SOD (PORCINE) 5000UNITS/ML VIAL (J1644 PER 1000UNITS) SQ SCH ×3 (05:11→21:03)
[2019-09-03 06:00] VITALS: BP 150/80
[2019-09-03] MEDS: ASPIRIN 81 MG ENTERIC TAB PO SCH (09:36)
[2019-09-03] MEDS: ATORVASTATIN 10 MG TAB PO SCH (09:36)
[2019-09-03] MEDS: amLODIPine 5 MG TAB PO SCH (09:36)
[2019-09-03] MEDS: CETIRIZINE (ZyrTEC) 10 MG TAB PO SCH (09:36)
[2019-09-03] MEDS: NYSTATIN 100,000 UNITS/GM TOPICAL PWD 15 GM TOP SCH ×2 (09:37→21:02)
[2019-09-03] MEDS: TAMSULOSIN 0.4 MG CAP PO SCH (21:02)
[2019-09-03] MEDS: DONEPEZIL 5 MG TAB PO SCH (21:02)
[2019-09-03] MEDS: CYANOCOBALAMIN 500 MCG TAB PO SCH (21:02)
[2019-09-03] MEDS: VITAMIN D 1,000 INTERNATIONAL UNITS TABLET PO SCH (21:02)
[2019-09-04] MEDS: HEPARIN SOD (PORCINE) 5000UNITS/ML VIAL (J1644 PER 1000UNITS) SQ SCH ×4 (05:44→21:41)
[2019-09-04 06:00] VITALS: BP 146/60
[2019-09-04] MEDS: ATORVASTATIN 10 MG TAB PO SCH (10:24)
[2019-09-04] MEDS: ASPIRIN 81 MG ENTERIC TAB PO SCH (10:24)
[2019-09-04] MEDS: amLODIPine 5 MG TAB PO SCH (10:24)
[2019-09-04] MEDS: NYSTATIN 100,000 UNITS/GM TOPICAL PWD 15 GM TOP SCH ×2 (10:25→21:41)
[2019-09-04] MEDS: CETIRIZINE (ZyrTEC) 10 MG TAB PO SCH (10:25)
[2019-09-04] MEDS: NYSTATIN CREAM 15 GM EXT SCH ×2 (15:36→21:39)
[2019-09-04] MEDS: VITAMIN D 1,000 INTERNATIONAL UNITS TABLET PO SCH (21:41)
[2019-09-04] MEDS: TAMSULOSIN 0.4 MG CAP PO SCH (21:43)
[2019-09-04] MEDS: DONEPEZIL 5 MG TAB PO SCH (21:43)
[2019-09-04] MEDS: CYANOCOBALAMIN 500 MCG TAB PO SCH (21:43)
[2019-09-05] MEDS: HEPARIN SOD (PORCINE) 5000UNITS/ML VIAL (J1644 PER 1000UNITS) SQ SCH ×3 (05:39→21:43)
[2019-09-05 06:00] VITALS: BP 149/60
[2019-09-05] MEDS: NYSTATIN 100,000 UNITS/GM TOPICAL PWD 15 GM TOP SCH ×2 (09:30→20:09)
[2019-09-05] MEDS: CETIRIZINE (ZyrTEC) 10 MG TAB PO SCH (09:30)
[2019-09-05] MEDS: NYSTATIN CREAM 15 GM EXT SCH ×2 (09:30→20:09)
[2019-09-05] MEDS: ASPIRIN 81 MG ENTERIC TAB PO SCH (09:31)
[2019-09-05] MEDS: amLODIPine 5 MG TAB PO SCH (09:31)
[2019-09-05] MEDS: ATORVASTATIN 10 MG TAB PO SCH (09:31)
[2019-09-05] MEDS: DONEPEZIL 5 MG TAB PO SCH (20:08)
[2019-09-05] MEDS: TAMSULOSIN 0.4 MG CAP PO SCH (20:09)
[2019-09-05] MEDS: CYANOCOBALAMIN 500 MCG TAB PO SCH (20:09)
[2019-09-05] MEDS: VITAMIN D 1,000 INTERNATIONAL UNITS TABLET PO SCH (20:09)
[2019-09-06] MEDS: HEPARIN SOD (PORCINE) 5000UNITS/ML VIAL (J1644 PER 1000UNITS) SQ SCH ×3 (05:52→21:43)
[2019-09-06 06:00] VITALS: BP 149/61
[2019-09-06 06:05] LABS: HEMATOCRIT 30.7 % (42.0-52.0); MEAN CORPUSCULAR HEMOGLOBIN 31.1 pg (27.0-33.0); MEAN CORPUSCULAR HGB CONC 32.6 g/dl (32.0-36.5); MEAN CORPUSCULAR VOLUME 95.3 fl (80.0-96.0); PLATELET COUNT, AUTOMATED 377 10^3/uL (150-450); RED BLOOD COUNT 3.22 10^6/uL (4.30-6.10); WHITE BLOOD COUNT 10.4 10^3/uL (4.0-10.0)
[2019-09-06 06:31] LABS: BLOOD UREA NITROGEN 24 MG/DL (7-18); C REACTIVE PROTEIN QUANTITATIV 1.77 MG/DL (0.00-0.30); CALCIUM LEVEL 8.7 MG/DL (8.8-10.2); CARBON DIOXIDE LEVEL 29 MEQ/L (21-32); CHLORIDE LEVEL 103 MEQ/L (98-107); GLOMERULAR FILTRATION RATE > 60.0 (>35); GLUCOSE, FASTING 76 MG/DL (70-100); POTASSIUM SERUM 4.5 MEQ/L (3.5-5.1); SODIUM LEVEL 138 MEQ/L (136-145)
[2019-09-06] MEDS: ASPIRIN 81 MG ENTERIC TAB PO SCH (09:58)
[2019-09-06] MEDS: ATORVASTATIN 10 MG TAB PO SCH (09:59)
[2019-09-06] MEDS: amLODIPine 5 MG TAB PO SCH (09:59)
[2019-09-06] MEDS: CETIRIZINE (ZyrTEC) 10 MG TAB PO SCH (09:59)
[2019-09-06] MEDS: NYSTATIN CREAM 15 GM EXT SCH ×2 (10:30→21:44)
[2019-09-06] MEDS: NYSTATIN 100,000 UNITS/GM TOPICAL PWD 15 GM TOP SCH ×2 (10:30→21:44)
[2019-09-06] MEDS: ACETAMINOPHEN TAB 650MG DOSE (2X325MG) PO PRN (21:37)
[2019-09-06] MEDS: DONEPEZIL 5 MG TAB PO SCH (21:39)
[2019-09-06] MEDS: VITAMIN D 1,000 INTERNATIONAL UNITS TABLET PO SCH (21:40)
[2019-09-06] MEDS: CYANOCOBALAMIN 500 MCG TAB PO SCH (21:41)
[2019-09-06] MEDS: TAMSULOSIN 0.4 MG CAP PO SCH (21:42)
[2019-09-07] MEDS: HEPARIN SOD (PORCINE) 5000UNITS/ML VIAL (J1644 PER 1000UNITS) SQ SCH ×3 (05:44→20:14)
[2019-09-07 06:00] VITALS: BP 129/75
--- NOTE | 2019-09-07 06:45 | IPN ---
DATE: 09/06/2019 Cristian is doing well. He is sleeping in his chair and was not in a good mood to be examined today. He has had no fever or chills. No nausea, vomiting, or diarrhea. No chest pain or shortness of breath. According to nursing, his wants to take him home. He has been off antibiotics for 2 weeks now. His last dose of intravenous (IV) ampicillin was 08/23/2019. His wound continues to improve. LABS: White count on 09/06/2019 was 10.4, hemoglobin 10, hematocrit 30.7, platelets 377. Sodium 138, potassium 4.5, chloride 103, bicarbonate 29, BUN 24, creatinine 1.2, glucose 76, calcium 8.7. CRP 1.77, down from 8.1. PHYSICAL EXAMINATION: Temperature is 97.6, pulse 57, respirations 16, blood pressure 149/61, oxygen saturation 95% on room air. Right foot has no redness or swelling. He had an amputation of the 4th and 5th toes. The ulcer size now measures less than a centimeter. There is no tracking down to bone. It is closing off. There is a smaller ulceration more anteriorly that is open, measuring about 2 x 1 cm, and has a black scab on it. No evidence of infection. IMPRESSION: Chronic osteomyelitis of the right foot, culture positive for Enterococcus (E) faecalis, status post amputation of 4th and 5th toes and metatarsal heads. He finished 6 weeks of IV ampicillin on 08/23/2019 with no evidence of recurrent infection off antibiotics. PLAN: Infectious disease signing off. Please call me if any other concerns.
[2019-09-07] MEDS: amLODIPine 5 MG TAB PO SCH (09:00)
[2019-09-07] MEDS: NYSTATIN CREAM 15 GM EXT SCH ×2 (09:27→20:15)
[2019-09-07] MEDS: ASPIRIN 81 MG ENTERIC TAB PO SCH (09:27)
[2019-09-07] MEDS: ATORVASTATIN 10 MG TAB PO SCH (09:27)
[2019-09-07] MEDS: NYSTATIN 100,000 UNITS/GM TOPICAL PWD 15 GM TOP SCH ×2 (09:27→20:15)
[2019-09-07] MEDS: CETIRIZINE (ZyrTEC) 10 MG TAB PO SCH (09:27)
[2019-09-07] MEDS: VITAMIN D 1,000 INTERNATIONAL UNITS TABLET PO SCH (20:14)
[2019-09-07] MEDS: TAMSULOSIN 0.4 MG CAP PO SCH (20:14)
[2019-09-07] MEDS: CYANOCOBALAMIN 500 MCG TAB PO SCH (20:14)
[2019-09-07] MEDS: DONEPEZIL 5 MG TAB PO SCH (20:14)
[2019-09-08] MEDS: HEPARIN SOD (PORCINE) 5000UNITS/ML VIAL (J1644 PER 1000UNITS) SQ SCH ×3 (05:43→21:24)
[2019-09-08 06:00] VITALS: BP 142/63
[2019-09-08] MEDS: amLODIPine 5 MG TAB PO SCH (09:00)
[2019-09-08] MEDS: NYSTATIN 100,000 UNITS/GM TOPICAL PWD 15 GM TOP SCH ×2 (09:52→21:24)
[2019-09-08] MEDS: NYSTATIN CREAM 15 GM EXT SCH ×2 (09:52→21:24)
[2019-09-08] MEDS: CETIRIZINE (ZyrTEC) 10 MG TAB PO SCH (09:52)
[2019-09-08] MEDS: ASPIRIN 81 MG ENTERIC TAB PO SCH (09:52)
[2019-09-08] MEDS: ATORVASTATIN 10 MG TAB PO SCH (09:52)
[2019-09-08] MEDS: VITAMIN D 1,000 INTERNATIONAL UNITS TABLET PO SCH (21:24)
[2019-09-08] MEDS: DONEPEZIL 5 MG TAB PO SCH (21:24)
[2019-09-08] MEDS: CYANOCOBALAMIN 500 MCG TAB PO SCH (21:24)
[2019-09-08] MEDS: TAMSULOSIN 0.4 MG CAP PO SCH (21:24)
[2019-09-09 06:00] VITALS: BP 129/55
[2019-09-09] MEDS: HEPARIN SOD (PORCINE) 5000UNITS/ML VIAL (J1644 PER 1000UNITS) SQ SCH ×3 (06:09→22:47)
[2019-09-09] MEDS: CETIRIZINE (ZyrTEC) 10 MG TAB PO SCH (09:06)
[2019-09-09] MEDS: ATORVASTATIN 10 MG TAB PO SCH (09:06)
[2019-09-09] MEDS: ASPIRIN 81 MG ENTERIC TAB PO SCH (09:06)
[2019-09-09] MEDS: NYSTATIN CREAM 15 GM EXT SCH ×2 (09:07→19:49)
[2019-09-09] MEDS: amLODIPine 5 MG TAB PO SCH (09:07)
[2019-09-09] MEDS: NYSTATIN 100,000 UNITS/GM TOPICAL PWD 15 GM TOP SCH ×2 (09:09→19:48)
[2019-09-09] MEDS: VITAMIN D 1,000 INTERNATIONAL UNITS TABLET PO SCH (19:47)
[2019-09-09] MEDS: TAMSULOSIN 0.4 MG CAP PO SCH (19:47)
[2019-09-09] MEDS: DONEPEZIL 5 MG TAB PO SCH (19:47)
[2019-09-09] MEDS: CYANOCOBALAMIN 500 MCG TAB PO SCH (19:48)
[2019-09-10 06:00] VITALS: BP 143/57
[2019-09-10] MEDS: HEPARIN SOD (PORCINE) 5000UNITS/ML VIAL (J1644 PER 1000UNITS) SQ SCH ×3 (06:08→20:32)
[2019-09-10] MEDS: ASPIRIN 81 MG ENTERIC TAB PO SCH (10:31)
[2019-09-10] MEDS: amLODIPine 5 MG TAB PO SCH (10:31)
[2019-09-10] MEDS: ATORVASTATIN 10 MG TAB PO SCH (10:31)
[2019-09-10] MEDS: CETIRIZINE (ZyrTEC) 10 MG TAB PO SCH (10:31)
[2019-09-10] MEDS: NYSTATIN 100,000 UNITS/GM TOPICAL PWD 15 GM TOP SCH ×2 (10:32→20:33)
[2019-09-10] MEDS: NYSTATIN CREAM 15 GM EXT SCH ×2 (10:32→20:33)
--- NOTE | 2019-09-10 13:53 | IPNPDOC ---
Text Note Date of Service The patient was seen on 09/10/19. NOTE SUBJECTIVE: -No acute complaints overnight. -Denied chest pain, n/v/d, shortness of breath. -Sitting up in chair, pleasant PHYSICAL EXAMINATION: VITALS : As below. GENERAL: Alert, awake, NAD HEENT: NCAT, EOMI, anicteric, MMM NECK: supple, no JVD LUNGS: Diminished throughout but otherwise without crackles or wheezing HEART: RRR, no mrg ABDOMEN: Normoactive bowel sounds, soft, NTND EXTREMITIES: contracted, right 4th and 5th toe amputated, stable. ASSESSMENT: 83 y/o M admitted under inpatient status for treatment of gangrene of right 4th, 5th toe s/p amputation, chronic osteomyelitis, acute kidney injury, chronic dementia now pending home discharge with family on 09/14/19. PLAN: 1. Distal dried gangrene, with recent third metatarsal head excision and wound debridement, excisional type, including subcutaneous tissue, tendon and bone 07/10/19. 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 Not vascular candidate for intervention/surgery. -continue wound care. -After much discussion with PFS, now awaiting home discharge with family on 09/14/19. -Well known to ID and podiatry services. 2. Chronic osteomyelitis. Positive enterococcus and wound cultures on ampicillin as per sensitivities. Pressure ulcers in bilateral heels. -Boots in place. -Completed Ampicillin 2 gm Q6 hrs 08/23/19. 3. BPH, chronic. -Continue home medications 4. Dementia, chronic. -Continue home medications 5. HTN, chronic. -Continue home medications 6. DVT px. Heparin. 7. Chronic debility and progressive deconditioning: -PT has been working with Mr. Gomez at various stages of his long admission since 02/12. He remains a 2 person assist with brad lift and is out of the bed for meals in the recliner. When in bed, he has contractures of bilateral lower extremities with flexed knees and his upper extremities are usually adducted towards the center. He is unable to turn or reposition himself in bed and while here has been turned frequently approximately Q2H with LE boots on for pressure ulcer prevention and pillows to separate and pad his contracted low extremities. He is also unable to feed himself and has been fed by assistance at meal time, groomed, and bathed. On 09/08 PT worked with his family to teach about the degree if debility and what family would need to do to provide him care of home. -Mr. Gomez has significant mobility limitations including LE contracture, bilateral heel ulcers with chronic osteomyelitis and end stage dementia, that significantly impairs his ability to participate in mobility related activities of daily living such as toileting, feeding, dressing, grooming, and bathing entirely. -He has demonstrated over the months that he has been admitted in the hospital an inability to walk using a cane or walker and could not even pivot from the bed to a chair and has therefore required a brad lift for transfers that he would need at home. -The use of a manual wheelchair will significantly improve his ability to participate in MRADLs and he will use it on a regular basis in the home and allow him an agreeable quality of life to experience the outside world and be out of the bed into other environments. -Given Mr.s Gomez's debility, contractures, heel ulcers with bone infection, he requires positioning of the body in ways that are not feasible with an ordinary bed in order to alleviate pain and he has the absolute need for frequent changes in body position to prevent the development of pressure sores and would benefit from a hospital bed. DISPOSITION: C/w treatment above. Awaiting discharge home on 09/14/19 as planned. ALS status. VS,Fishbone, I+O VS, Fishbone, I+O Vital Signs Date Time Temp Pulse Resp B/P (MAP) Pulse Ox O2 Delivery O2 Flow Rate FiO2 09/10/19 06:00 98.3 57 16 143/57 (85) 95 Room Air I&O- Last 24 Hours up to 6 AM 09/10/19 06:00 Intake Total 1020 ml Output Total 300 ml Balance 720 ml GENNA PRIETO MD Sep 10, 2019 13:53
[2019-09-10] MEDS: TAMSULOSIN 0.4 MG CAP PO SCH (20:32)
[2019-09-10] MEDS: CYANOCOBALAMIN 500 MCG TAB PO SCH (20:32)
[2019-09-10] MEDS: VITAMIN D 1,000 INTERNATIONAL UNITS TABLET PO SCH (20:32)
[2019-09-10] MEDS: DONEPEZIL 5 MG TAB PO SCH (20:32)
[2019-09-11] MEDS: HEPARIN SOD (PORCINE) 5000UNITS/ML VIAL (J1644 PER 1000UNITS) SQ SCH ×3 (05:13→21:02)
[2019-09-11 06:00] VITALS: BP 142/63
[2019-09-11] MEDS: CETIRIZINE (ZyrTEC) 10 MG TAB PO SCH (10:22)
[2019-09-11] MEDS: ATORVASTATIN 10 MG TAB PO SCH (10:23)
[2019-09-11] MEDS: amLODIPine 5 MG TAB PO SCH (10:23)
[2019-09-11] MEDS: NYSTATIN CREAM 15 GM EXT SCH ×2 (10:23→21:03)
[2019-09-11] MEDS: NYSTATIN 100,000 UNITS/GM TOPICAL PWD 15 GM TOP SCH ×2 (10:23→21:02)
[2019-09-11] MEDS: ASPIRIN 81 MG ENTERIC TAB PO SCH (10:23)
[2019-09-11] MEDS: DONEPEZIL 5 MG TAB PO SCH (21:00)
[2019-09-11] MEDS: TAMSULOSIN 0.4 MG CAP PO SCH (21:00)
[2019-09-11] MEDS: VITAMIN D 1,000 INTERNATIONAL UNITS TABLET PO SCH (21:01)
[2019-09-11] MEDS: CYANOCOBALAMIN 500 MCG TAB PO SCH (21:04)
[2019-09-12] MEDS: HEPARIN SOD (PORCINE) 5000UNITS/ML VIAL (J1644 PER 1000UNITS) SQ SCH ×3 (05:10→21:00)
[2019-09-12 06:00] VITALS: BP 129/89
[2019-09-12] MEDS: NYSTATIN 100,000 UNITS/GM TOPICAL PWD 15 GM TOP SCH ×2 (09:00→21:01)
[2019-09-12] MEDS: CETIRIZINE (ZyrTEC) 10 MG TAB PO SCH (09:00)
[2019-09-12] MEDS: amLODIPine 5 MG TAB PO SCH (09:00)
[2019-09-12] MEDS: NYSTATIN CREAM 15 GM EXT SCH ×2 (09:00→21:00)
[2019-09-12] MEDS: ASPIRIN 81 MG ENTERIC TAB PO SCH (09:00)
[2019-09-12] MEDS: ATORVASTATIN 10 MG TAB PO SCH (09:00)
[2019-09-12] MEDS: VITAMIN D 1,000 INTERNATIONAL UNITS TABLET PO SCH (21:00)
[2019-09-12] MEDS: DONEPEZIL 5 MG TAB PO SCH (21:00)
[2019-09-12] MEDS: TAMSULOSIN 0.4 MG CAP PO SCH (21:00)
[2019-09-12] MEDS: CYANOCOBALAMIN 500 MCG TAB PO SCH (21:01)
[2019-09-12] MEDS: ACETAMINOPHEN TAB 650MG DOSE (2X325MG) PO PRN (21:10)
[2019-09-13 06:00] VITALS: BP 137/60
[2019-09-13] MEDS: HEPARIN SOD (PORCINE) 5000UNITS/ML VIAL (J1644 PER 1000UNITS) SQ SCH ×3 (06:04→21:28)
[2019-09-13] MEDS: amLODIPine 5 MG TAB PO SCH (09:00)
[2019-09-13] MEDS: ATORVASTATIN 10 MG TAB PO SCH (11:36)
[2019-09-13] MEDS: ASPIRIN 81 MG ENTERIC TAB PO SCH (11:36)
[2019-09-13] MEDS: CETIRIZINE (ZyrTEC) 10 MG TAB PO SCH (11:36)
[2019-09-13] MEDS: NYSTATIN 100,000 UNITS/GM TOPICAL PWD 15 GM TOP SCH ×2 (11:37→21:28)
[2019-09-13] MEDS: NYSTATIN CREAM 15 GM EXT SCH ×2 (11:38→21:28)
[2019-09-13] MEDS: VITAMIN D 1,000 INTERNATIONAL UNITS TABLET PO SCH (21:27)
[2019-09-13] MEDS: CYANOCOBALAMIN 500 MCG TAB PO SCH (21:28)
[2019-09-13] MEDS: TAMSULOSIN 0.4 MG CAP PO SCH (21:28)
[2019-09-13] MEDS: DONEPEZIL 5 MG TAB PO SCH (21:28)
[2019-09-13 22:45] LABS: HEMATOCRIT 32.6 % (42.0-52.0); HEMOGLOBIN 10.6 g/dl (13.5-17.5); MEAN CORPUSCULAR HEMOGLOBIN 31.5 pg (27.0-33.0); MEAN CORPUSCULAR HGB CONC 32.5 g/dl (32.0-36.5); MEAN CORPUSCULAR VOLUME 96.7 fl (80.0-96.0); PLATELET COUNT, AUTOMATED 319 10^3/uL (150-450); RED BLOOD COUNT 3.37 10^6/uL (4.30-6.10); WHITE BLOOD COUNT 11.1 10^3/uL (4.0-10.0)
[2019-09-13 23:20] LABS: CALCIUM LEVEL 8.7 MG/DL (8.8-10.2); CREATININE FOR GFR 1.48 MG/DL (0.70-1.30); GLOMERULAR FILTRATION RATE 48.1 (>35); POTASSIUM SERUM 4.1 MEQ/L (3.5-5.1)
[2019-09-14] MEDS: HEPARIN SOD (PORCINE) 5000UNITS/ML VIAL (J1644 PER 1000UNITS) SQ SCH (05:13)
[2019-09-14 06:00] VITALS: BP 140/52
[2019-09-14] MEDS ORDERED: TRAZ-252 PO (07:33)
[2019-09-14] MEDS ORDERED: ASPI81TAEC PO (07:33)
[2019-09-14] MEDS ORDERED: AMLO5TAB6 PO (07:33)
[2019-09-14] MEDS ORDERED: NYST10CR EXT (07:33)
[2019-09-14] MEDS ORDERED: ATOR1TAB19 PO (07:33)
[2019-09-14 07:51] VITALS: BP 146/64
[2019-09-14] MEDS: ATORVASTATIN 10 MG TAB PO SCH (07:51)
[2019-09-14] MEDS: ASPIRIN 81 MG ENTERIC TAB PO SCH (07:51)
[2019-09-14] MEDS: amLODIPine 5 MG TAB PO SCH (07:51)
[2019-09-14] MEDS: CETIRIZINE (ZyrTEC) 10 MG TAB PO SCH (07:53)
[2019-09-14] MEDS: NYSTATIN 100,000 UNITS/GM TOPICAL PWD 15 GM TOP SCH (07:53)
[2019-09-14] MEDS: NYSTATIN CREAM 15 GM EXT SCH (07:53)
--- NOTE | 2019-09-14 18:10 | DS.PDOC ---
Discharge Summary General Date of Admission Feb 12, 2019 at 02:21 Date of Discharge 09/14/19 Discharge Summary PROCEDURES PERFORMED DURING STAY: third metatarsal head excision and wound debridement, excisional type, including subcutaneous tissue, tendon and bone 07/10/19 ADMITTING DIAGNOSES: Distal dried gangrene Chronic osteomyelitis BPH, chronic Dementia, chronic HTN, chronic DISCHARGE DIAGNOSES: Distal dried gangrene Chronic osteomyelitis BPH, chronic Dementia, chronic HTN, chronic COMPLICATIONS/CHIEF COMPLAINT: Gangrene Of Rt Toes. HISTORY OF PRESENT ILLNESS: 83 y/o M admitted under inpatient status for treatment of gangrene of right 4th, 5th toe s/p amputation, chronic osteomyelitis, acute kidney injury, chronic dementia now pending home discharge with family on 09/14/19. HOSPITAL COURSE: During hospital stay following issue addressed 1. Distal dried gangrene, with recent third metatarsal head excision and wound debridement, excisional type, including subcutaneous tissue, tendon and bone 07/10/19. 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 Not vascular candidate for intervention/surgery. -continue wound care. -After much discussion with PFS, now awaiting home discharge with family on 09/14/19. -Well known to ID and podiatry services. 2. Chronic osteomyelitis. Positive enterococcus and wound cultures on ampicillin as per sensitivities. Pressure ulcers in bilateral heels. -Boots in place. -Completed Ampicillin 2 gm Q6 hrs 08/23/19. 3. BPH, chronic. -Continue home medications 4. Dementia, chronic. -Continue home medications 5. HTN, chronic. -Continue home medications 6. DVT px. Heparin. 7. Chronic debility and progressive deconditioning: -PT has been working with Mr. Gomez at various stages of his long admission since 02/12. He remains a 2 person assist with brad lift and is out of the bed for meals in the recliner. When in bed, he has contractures of bilateral lower extremities with flexed knees and his upper extremities are usually adducted towards the center. He is unable to turn or reposition himself in bed and while here has been turned frequently approximately Q2H with LE boots on for pressure ulcer prevention and pillows to separate and pad his contracted low extremities. He is also unable to feed himself and has been fed by assistance at meal time, groomed, and bathed. On 09/08 PT worked with his family to teach about the degree if debility and what family would need to do to provide him care of home. -Mr. Gomez has significant mobility limitations including LE contracture, bilateral heel ulcers with chronic osteomyelitis and end stage dementia, that significantly impairs his ability to participate in mobility related activities of daily living such as toileting, feeding, dressing, grooming, and bathing entirely. -He has demonstrated over the months that he has been admitted in the hospital an inability to walk using a cane or walker and could not even pivot from the bed to a chair and has therefore required a brad lift for transfers that he would need at home. -The use of a manual wheelchair will significantly improve his ability to participate in MRADLs and he will use it on a regular basis in the home and allo w him an agreeable quality of life to experience the outside world and be out of the bed into other environments. -Given Mr.s Gomez's debility, contractures, heel ulcers with bone infection, he requires positioning of the body in ways that are not feasible with an ordinary bed in order to alleviate pain and he has the absolute need for frequent changes in body position to prevent the development of pressure sores and would benefit from a hospital bed. DISCHARGE MEDICATIONS: Please see below. ALLERGIES: Please see below. PHYSICAL EXAMINATION ON DISCHARGE: . VITALS : As below. GENERAL: Alert, awake, NAD HEENT: NCAT, EOMI, anicteric, MMM NECK: supple, no JVD LUNGS: Diminished throughout but otherwise without crackles or wheezing HEART: RRR, no mrg ABDOMEN: Normoactive bowel sounds, soft, NTND EXTREMITIES: contracted, right 4th and 5th toe amputated, stable. LABORATORY DATA: Please see below. PROGNOSIS: guarded ACTIVITY: [As tolerated]. DIET: cardiac DISCHARGE PLAN: home DISPOSITION: Home, Self-Care. DISCHARGE INSTRUCTIONS: Follow-up with PCP and human resources consultant DISCHARGE CONDITION: [Stable]. TIME SPENT ON DISCHARGE: Greater than 40 minutes. Vital Signs/I&Os Vital Signs Date Time Temp Pulse Resp B/P (MAP) Pulse Ox O2 Delivery O2 Flow Rate FiO2 09/14/19 07:51 62 146/64 09/14/19 06:00 98.3 18 93 Room Air I&O- Last 24 Hours up to 6 AM 09/14/19 06:00 Intake Total 1300 ml Output Total 200 ml Balance 1100 ml Laboratory Data Labs 24H Laboratory Tests 2 09/13/19 22:33: Nucleated Red Blood Cells % (auto) 0.0, Anion Gap 5L, Glomerular Filtration Rate 48.1, Calcium Level 8.7L CBC/BMP Laboratory Tests 09/13/19 22:33 Discharge Medications Scheduled Amlodipine Besylate (Amlodipine Besylate) 5 Mg Tablet, 5 MG PO DAILY Aspirin (Aspirin EC) 81 Mg Tablet.dr, 81 MG PO DAILY Atorvastatin Calcium (Atorvastatin Calcium) 10 Mg Tablet, 10 MG PO DAILY Cholecalciferol (Vitamin D3) (Vitamin D3) 1,000 Unit Tablet, 1,000 UNIT PO QHS, (Reported) Cyanocobalamin (Vitamin B-12) (Vitamin B-12) 1,000 Mcg Tab.subl, 1,000 MCG SL QHS, (Reported) Donepezil HCl (Donepezil HCl) 10 Mg Tablet, 10 MG PO QHS, (Reported) Nystatin (Nystatin) 15 Gm Cream..g., 1 DOSE EXT BID Tamsulosin HCl (Flomax) 0.4 Mg Capsule, 0.4 MG PO QHS, (Reported) Scheduled PRN Bisacodyl (Bisacodyl) 10 Mg Supp.rect, 10 MG [place] Q3DP PRN for CONSTIPATION, (Reported) IF NO BM BY DAY 3 AT 0600 Magnesium Hydroxide (Milk of Magnesia) 400 Mg/5 Ml Oral.susp, 2,400 MG PO Q2D PRN for CONSTIPATION, (Reported) IF NO BOWEL MOVEMENT BY DAY 2 AT 2000 Trazodone HCl (Trazodone HCl) 50 Mg Tablet, 25 MG PO QHSP PRN for INSOMNIA Allergies Coded Allergies: No Known Allergies (Unverified , 12/09/18) HAMILTON AGUILAR DO Sep 14, 2019 18:10
== END 2019-09-14 11:10 | disposition home health service (06) | DRG 255 ==
LOC: M ICU 02:21 → M MS4PR 02-13 17:05 → M MSPAV 02-14 02:20
PROVIDERS: ADMIT Internal Medicine; ATTEND Internal Medicine
PROC: 0Y6X0Z0 Detachment at Right 5th Toe, Complete, Open Approach (ICD-10-PCS; principal; 2019-05-25)
PROC: 0Y6T0Z1 Detachment at Right 3rd Toe, High, Open Approach (ICD-10-PCS; 2019-05-25)
PROC: 0Y6V0Z0 Detachment at Right 4th Toe, Complete, Open Approach (ICD-10-PCS; 2019-06-29)
PROC: 0JBQ0ZZ Excision of Right Foot Subcutaneous Tissue and Fascia, Open Approach (ICD-10-PCS; 2019-07-09)
PROC: 0LBV0ZZ Excision of Right Foot Tendon, Open Approach (ICD-10-PCS; 2019-07-10)
PROC: 0QBN0ZZ Excision of Right Metatarsal, Open Approach (ICD-10-PCS; 2019-07-10)
DX: I70.261 Atherosclerosis of native arteries of extremities with gangrene, right leg (principal); J69.0 Pneumonitis due to inhalation of food and vomit; L03.115 Cellulitis of right lower limb; M86.171 Other acute osteomyelitis, right ankle and foot; N17.9 Acute kidney failure, unspecified; I12.9 Hypertensive chronic kidney disease with stage 1 through stage 4 chronic kidney disease, or unspecified chronic kidney disease; F03.90 Unspecified dementia, unspecified severity, without behavioral disturbance, psychotic disturbance, mood disturbance, and anxiety; J44.9 Chronic obstructive pulmonary disease, unspecified; L89.616 Pressure-induced deep tissue damage of right heel; L89.626 Pressure-induced deep tissue damage of left heel; N18.3 Chronic kidney disease, stage 3 (moderate); L89.159 Pressure ulcer of sacral region, unspecified stage; E87.70 Fluid overload, unspecified; Z79.82 Long term (current) use of aspirin; Z79.899 Other long term (current) drug therapy; R51 Headache; N40.0 Benign prostatic hyperplasia without lower urinary tract symptoms; G40.909 Epilepsy, unspecified, not intractable, without status epilepticus; G47.00 Insomnia, unspecified; I95.9 Hypotension, unspecified; E86.0 Dehydration

== ENCOUNTER 2020-01-29 19:12 | Inpatient (IN) | payer MEDICARE, OTHER, BC ==
[~2020-01-29] VITALS: Ht 165.1 cm; Wt 51.6 kg
[~2020-01-29 19:12] MED LIST changes: +AMLO1TAB24 PO; +ASPI81TAEC PO; +ATOR1TAB19 PO; +BISA10SU20 PR; +FLEEENE12 PR; +GLUC1KIT IM; +MOM30SS2 PO; +NYST10CR EXT; +SLF3ML IV; +TRAZ-252 PO; +VANC50SOL IV
[2020-01-29 20:21] LABS: BASO % 0.2 % (0.0-1.0); EOS # 0.2 10^3/uL (0.0-0.5); EOS % 1.4 % (0.0-3.0); HEMOGLOBIN 10.4 g/dl (13.5-17.5); LYMPH # 1.2 10^3/uL (1.5-5.0); LYMPH % 9.5 % (24.0-44.0); MEAN CORPUSCULAR HEMOGLOBIN 28.5 pg (27.0-33.0); MEAN CORPUSCULAR HGB CONC 32.5 g/dl (32.0-36.5); MEAN CORPUSCULAR VOLUME 87.7 fl (80.0-96.0); MONO % 8.4 % (0.0-5.0); NEUTROPHILS # 9.7 10^3/uL (1.5-8.5); NEUTROPHILS % 80.1 % (36.0-66.0); PLATELET COUNT, AUTOMATED 323 10^3/uL (150-450); RED BLOOD COUNT 3.65 10^6/uL (4.30-6.10); WHITE BLOOD COUNT 12.1 10^3/uL (4.0-10.0)
[2020-01-29] MEDS ORDERED: IPRATROPIUM 0.5MG/ALBUTEROL 2.5MG INH SOL UD 3ML (DUONEB) NEB ONE (20:30)
[2020-01-29] MEDS ORDERED: methylPREDNISolone 125MG 2ML VIAL IV ONE (20:30)
--- NOTE | 2020-01-29 20:33 | REPVR ---
PROCEDURE INFORMATION: Exam: CT Head Without Contrast Exam date and time: 01/29/2020 8:17 PM Age: 84 years old Clinical indication: Altered mental status/memory loss; Additional info: Aspiration, altered mental status TECHNIQUE: Imaging protocol: Computed tomography of the head without contrast. Radiation optimization: All CT scans at this facility use at least one of these dose optimization techniques: automated exposure control; mA and/or kV adjustment per patient size (includes targeted exams where dose is matched to clinical indication); or iterative reconstruction. COMPARISON: CT Head without contrast 08/15/2019 2:51 PM FINDINGS: Brain: There is parenchymal volume loss. White matter changes are demonstrated in the subcortical, centrum semiovale and periventricular white matter consistent with age related small vessel white matter ischemic changes. 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 Lacunar infarcts basal ganglia. Cerebral ventricles: No ventriculomegaly. Bones/joints: Unremarkable. No acute fracture. Paranasal sinuses: Bilateral ethmoid and right sphenoid sinusitis. Mastoid air cells: Visualized mastoid air cells are well aerated. Vasculature: Atherosclerotic calcifications are demonstrated in the intracranial carotid arteries bilaterally as well as in the vertebral basilar system. Soft tissues: Unremarkable. IMPRESSION: 1. There is parenchymal volume loss. White matter changes are demonstrated in the subcortical, centrum semiovale and periventricular white matter consistent with age related small vessel white matter ischemic changes. 2. No acute findings. Electronically signed by: Palomo Dave On 01/29/2020 20:33:16 PM
[2020-01-29] MEDS ORDERED: PIPERACILLIN/TAZOBACTAM SOD 4.5 GM in D5W MINI-BAG PLUS 50 ML IV ONE (20:45)
[2020-01-29 20:47] LABS: ALBUMIN 2.5 GM/DL (3.2-5.2); ALT/SGPT 26 U/L (12-78); BILIRUBIN,DIRECT 0.1 MG/DL (0.0-0.2); BILIRUBIN,TOTAL 0.4 MG/DL (0.2-1.0); BLOOD UREA NITROGEN 18 MG/DL (7-18); CALCIUM LEVEL 8.7 MG/DL (8.8-10.2); CARBON DIOXIDE LEVEL 27 MEQ/L (21-32); CHLORIDE LEVEL 100 MEQ/L (98-107); CK-MB VALUE MASS 2.8 NG/ML (<3.6); CPK CREATINE PHOSPHOKINASE 36 U/L (39-308); CREATININE FOR GFR 0.94 MG/DL (0.70-1.30); GLOMERULAR FILTRATION RATE > 60.0 (>35); GLUCOSE, FASTING 94 MG/DL (70-100); MB/CK RELATIVE INDEX 7.78 (< OR =4); NT-PRO BNP 620 PG/ML (<450); POTASSIUM SERUM 4.1 MEQ/L (3.5-5.1); SODIUM LEVEL 134 MEQ/L (136-145); TOTAL PROTEIN 7.6 GM/DL (6.4-8.2); TROPONIN I < 0.02 NG/ML (< 0.10)
--- NOTE | 2020-01-29 21:02 | REPVR ---
PROCEDURE INFORMATION: Exam: XR Chest, 1 View Exam date and time: 01/29/2020 8:41 PM Age: 84 years old Clinical indication: Cough and dyspnea; Additional info: Dyspnea/cough TECHNIQUE: Imaging protocol: XR of the chest Views: 1 view. COMPARISON: CT Chest without contrast 07/27/2019 1:40 PM FINDINGS: Lungs: Left lower lobe infiltrate. Increased interstitial markings demonstrated bilaterally likely chronic. Linear parenchymal opacities right lower lobe most likely represent atelectasis or scarring and less likely infiltrates. Pleural space: Unremarkable. No pleural effusion. No pneumothorax. Heart/Mediastinum: Unremarkable. No cardiomegaly. Bones/joints: Unremarkable. IMPRESSION: 1. Left lower lobe infiltrate. 2. Linear parenchymal opacities right lower lobe most likely represent atelectasis or scarring and less likely infiltrates. Electronically signed by: Palomo Dave On 01/29/2020 21:02:21 PM
[2020-01-29] MEDS ORDERED: MAALOX 30 ML SUSP *UDC PO PRN (21:15)
[2020-01-29] MEDS ORDERED: ACETAMINOPHEN TAB 650MG DOSE (2X325MG) PO PRN (21:15)
[2020-01-29] MEDS ORDERED: MOM 30ML SUSPENSION UDC PO PRN (21:15)
[2020-01-29] MEDS ORDERED: ALBUTEROL SULFATE 2.5 MG/0.5 ML INH NEB SOLN NEB PRN (21:15)
[2020-01-29] MEDS ORDERED: ATOR1TAB19 PO (21:46)
[2020-01-29] MEDS ORDERED: AMLO1TAB24 PO (21:46)
[2020-01-29] MEDS ORDERED: D31000TA2 PO (21:46)
[2020-01-29] MEDS ORDERED: VITA500C24 PO (21:46)
[2020-01-29] MEDS ORDERED: NYST10CR TOP (21:47)
--- NOTE | 2020-01-29 21:58 | HPEPDOC ---
[facility] Medical History & Physical Date of Admission Jan 29, 2020 Date of Service: Jan 29, 2020 Attending Physician: NICHOLAS MEJÍA MD History and Physical TIME OF SERVICE: 9:15 PM CHIEF COMPLAINT: Choking HISTORY OF PRESENT ILLNESS: This 84-year-old gentleman with advanced dementia was brought to the hospital by his for evaluation of coughing and choking on his food. She also commented that he to be intermittently confused. Other than that, she denied noticing him complain about anything, noticing fevers or chills, or any other acute complaints. She admitted to having a sore throat over the last few days. She provides him with food that is a pudding consistency and thickening, the fluids that he consumes. 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 HOME MEDICATIONS: Please see below. PHYSICAL EXAMINATION: Vital Signs Date Time Temp Pulse Resp B/P (MAP) Pulse Ox O2 Delivery O2 Flow Rate FiO2 01/29/20 19: 97.9 62 18 166/72 91 Room Air 01/29/20 21:12 4.0 GEN: slim built / appears chronically ill INTEGUMENT: not flushed/ has generalized pallor HEENT: NC in place CVS: RRR/NMRG/ no lower extremity edema LUNGS: has a productive cough / air entry equal bilaterally/breath sounds are diminished ABDOMEN: Contour (scaphoid) / soft MSK/EXTREMITIES: NCAT / he has temporal wasting PSYCH: alert LABORATORY DATA: 01/29/20 19:51 01/29/20 19:51: Immature Granulocyte % (Auto) 0.4, Neutrophils (%) (Auto) 80.1H, Lymphocytes (%) (Auto) 9.5L, Monocytes (%) (Auto) 8.4H, Eosinophils (%) (Auto) 1.4, Basophils (%) (Auto) 0.2, Neutrophils # (Auto) 9.7H, Lymphocytes # (Auto) 1.2L, Monocytes # (Auto) 1.0H, Eosinophils # (Auto) 0.2, Basophils # (Auto) 0.0, Nucleated Red Blood Cells % (auto) 0.0, Anion Gap 7L, Glomerular Filtration Rate > 60.0, Lactic Acid Level 0.9, Calcium Level 8.7L, Total Bilirubin 0.4, Direct Bilirubin 0.1, Aspartate Amino Transf (AST/SGOT) 19, Alanine Aminotransferase (ALT/SGPT) 26, Alkaline Phosphatase 139H, Total Creatine Kinase 36L, Creatine Kinase MB 2.8, Creatine Kinase MB Relative Index 7.78H, Troponin I < 0.02, RY-Tso-V-Type Natriuretic Peptide 620H, Total Protein 7.6, Albumin 2.5L, Albumin/Globulin Ratio 0.5 IMAGING: Chest xray "IMPRESSION: 1. Left lower lobe infiltrate. 2. Linear parenchymal opacities right lower lobe most likely represent atelectasis or scarring and less likely infiltrates." CT head "1. There is parenchymal volume loss. White matter changes are demonstrated in the subcortical, centrum semiovale and periventricular white matter consistent with age related small vessel white matter ischemic changes. 2. No acute findings." MICROBIOLOGY: Please see below. ASSESSMENT: Mr. Gomez is an 84 yr old w a hx of advanced dementia, COPD, severe PVD, BPH, HFpEF, Debility/Sarcopenia who was brought for evaluation of a cough and choking; he will be admitted for managements of mild COPD exacerbation 2/2 LLL PNA. PLAN: 1. Acute COPD 2/2 CAP His O2 sats dropped as low as 86% while on 4L of O2 in the ER Reason for in-patient admission: he requires supplemental O2 to maintain O2 sats above 88% & frequent neb treatments but he doesn't have a neb machine at home Plan: admit to medical floor / supplemental O2 / continuous pulse oximetry / aspiration precautions / f/u VBG and sputum cx / Dunebs Q6H, Albuterol Q4HP, Prednisone + PPI / abx bc of productive cough / will ask day time team to provide pt's with a script for neb machine for use at home 2.LLL PNA likely CAP The only SIRS criteria he has is mild leukocytosis Chest x-ray showed LLL lesion Episodes of hallucinations may be due to PNA CURB 65 score to determine if pt should be admitted = 2 = consider in-pt vs out- pt treatment He received Zosyn in the ER Plan: continuous pulse ox & supplemental O2/ f/u sputum cx/ switch to PO doxycycline / Acetaminophen PRN for fever 3. Choking Likely 2/2 worsening dementia He likely has dementia related dysphagia at baseline bc he already consumes an altered diet Plan: f/u repeat swallow eval to determine if he needs a different consistency of food 4. Advanced Dementia Asked the patient's if she would like to be referred to an Alzheimer's support group or respite care but she declined Plan: PCP may consider Geriatrics referral 5. PVD Plan:atorvastatin 6. Chronic HTN / Grade 1 diastolic CHF Plan: amlodipine 7. BPH Plan: tamsulosin 8. Sarcopenia/ Protein Moi Mal-nutrition His BMI is 18.9 Plan:f/u pre-albumin / the day time team may consider mailing jogger consult for calorie count and to determine if he is a candidate for Ensure with protein to help maintain his weight and muscle mass 9. Debility (bed bound) / history of heel ulcers Plan: frequent repositioning DVT PROPHYLAXIS: Lovenox DISPOSITION: home after more than 2 midnight's stay Home Medications Scheduled Amlodipine Besylate (Amlodipine Besylate) 5 Mg Tablet, 5 MG PO DAILY Ascorbic Acid (Vitamin C) 500 Mg Capsule, 500 MG PO DAILY Atorvastatin Calcium (Atorvastatin Calcium) 10 Mg Tablet, 10 MG PO DAILY Cholecalciferol (Vitamin D3) (Vitamin D3) 1,000 Unit Tablet, 1,000 UNITS PO QHS Cyanocobalamin (Vitamin B-12) (Vitamin B-12) 1,000 Mcg Tab.subl, 1,000 MCG SL QHS Donepezil HCl (Donepezil HCl) 10 Mg Tablet, 10 MG PO QHS Nystatin (Nystatin) 15 Gm Cream..g., 1 APLCT TOP BID BUTTOCK Tamsulosin HCl (Flomax) 0.4 Mg Capsule, 0.8 MG PO QHS Allergies Coded Allergies: No Known Allergies (Unverified , 12/09/18) A-FIB/CHADSVASC A-FIB History Current/History of A-Fib/PAF?: No Current PO Anticoag Therapy: No NICHOLAS MEJÍA MD Jan 29, 2020 21:58
--- NOTE | 2020-01-29 22:15 | ECGEPIP ---
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
[2020-01-29 22:50] VITALS: BP 110/50
[2020-01-29] MEDS: TAMSULOSIN 0.4 MG CAP PO SCH (23:25)
[2020-01-29] MEDS: DONEPEZIL 5 MG TAB PO SCH (23:25)
[2020-01-29] MEDS: DOXYCYCLINE HYCLATE 100MG TABLET PO SCH (23:25)
[2020-01-30] MEDS: IPRATROPIUM 0.5MG/ALBUTEROL 2.5MG INH SOL UD 3ML (DUONEB) NEB SCH ×4 (01:10→19:43)
[2020-01-30 05:17] LABS: PREALBUMIN 14.1 MG/DL (20.0-40.0)
[2020-01-30 06:00] VITALS: BP 148/68
[2020-01-30 06:09] LABS: HEMATOCRIT 32.7 % (42.0-52.0); HEMOGLOBIN 10.7 g/dl (13.5-17.5); MEAN CORPUSCULAR HEMOGLOBIN 28.8 pg (27.0-33.0); MEAN CORPUSCULAR HGB CONC 32.7 g/dl (32.0-36.5); MEAN CORPUSCULAR VOLUME 88.1 fl (80.0-96.0); PLATELET COUNT, AUTOMATED 328 10^3/uL (150-450); RED BLOOD COUNT 3.71 10^6/uL (4.30-6.10); WHITE BLOOD COUNT 14.4 10^3/uL (4.0-10.0)
[2020-01-30 06:28] LABS: CREATININE FOR GFR 1.24 MG/DL (0.70-1.30); POTASSIUM SERUM 3.7 MEQ/L (3.5-5.1)
[2020-01-30] MEDS ORDERED: FLUBLOK(EGG FREE)(QUAD)INFLUENZA VACC 0.5ML SYRINGE 18YRS & OLDER IM ONE (09:00)
--- NOTE | 2020-01-30 10:27 | IPNPDOC ---
Date Seen The patient was seen on 01/30/20. Progress Note SUBJECTIVE: Patient seen and examined at bedside this morning. Patient is nonverbal, has advanced dementia and debility. Unable to perform a review of systems as patient is nonverbal. Acute events overnight, patient is afebrile. OBJECTIVE PHYSICAL EXAMINATION: VITAL SIGNS: please see below General: Thin, nonverbal, eyes open, confused. HEENT: PERRLA, nasal cannula Neck: supple, normal ROM, no JVD Respiratory: Air entry bilateral, equal, breath sounds diminished CVS: RRR, normal S1, S2, no murmurs Abdo: soft, no masses, no hepatosplenomegaly, BS+, no rebound tenderness Extremities: no edema, pulses 2+ MSK: no joint deformities, normal ROM, temporal wasting, chronic heel ulcers. Neuro: Moving 4 extremities, full neuro exam unable to perform as patient cannot comply. Psych: Calm, alert. Disoriented. LABORATORY DATA, IMAGING STUDIES, MICROBIOLOGY: Please see below. DVT prophylaxis ordered?: Yes ASSESSMENT AND PLAN: Jason is an 84 yr old w a hx of advanced dementia, COPD, severe PVD, BPH, HFpEF, Debility/Sarcopenia who was brought for evaluation of a cough and choking; he will be admitted for managements of mild COPD exacerbation 2/2 LLL PNA. PROBLEMS: #Acute COPD exacerbation: 2/2 community acquire pneumonia. duonebs prn. Required 4LNC to maintain sat > 88%. Presently 93% on 2L. Cont pulse ox. Prednisone. PPI. ISS. #Left lower lobe PNA: O2 supplementation. s/p Zosyn in ED. switched to PO doxycycline. tylenol prn for fevers #Choking/dysphagia: soft mech diet.speech therapy for swallow eval. Likely dementia related. Consumes altered diet at home. #Advanced dementia: c/w donepezil. outpatient gilbert eval, PCP referral #PVD: atorvastatin #Chronic HTN/G1DD CHF: amlodipine #BPH: flomax #Sarcopenia/Protein Calorie Malnutrition: group reservations coordinator eval, will benefit from ensure. #Debility/hx heel ulcers: frequent turning VS, I&O, 24H, Fishbone Vital Signs/I&O Vital Signs Date Time Temp Pulse Resp B/P (MAP) Pulse Ox O2 Delivery O2 Flow Rate FiO2 01/30/20 06:00 97.3 75 17 148/68 (94) 93 Nasal Cannula 2.0 I&O- Last 24 Hours up to 6 AM 01/30/20 06:00 Intake Total 50 ml Output Total 25 ml Balance 25 ml Laboratory Data 24H LABS Laboratory Tests 2 01/29/20 19:51: Immature Granulocyte % (Auto) 0.4, Neutrophils (%) (Auto) 80.1H, Lymphocytes (%) (Auto) 9.5L, Monocytes (%) (Auto) 8.4H, Eosinophils (%) (Auto) 1.4, Basophils (%) (Auto) 0.2, Neutrophils # (Auto) 9.7H, Lymphocytes # (Auto) 1.2L, Monocytes # (Auto) 1.0H, Eosinophils # (Auto) 0.2, Basophils # (Auto) 0.0, Nucleated Red Blood Cells % (auto) 0.0, Anion Gap 7L, Glomerular Filtration Rate > 60.0, Lactic Acid Level 0.9, Calcium Level 8.7L, Total Bilirubin 0.4, Direct Bilirubin 0.1, Aspartate Amino Transf (AST/SGOT) 19, Alanine Aminotransferase (ALT/SGPT) 26, Alkaline Phosphatase 139H, Total Creatine Kinase 36L, Creatine Kinase MB 2.8, Creatine Kinase MB Relative Index 7.78H, Troponin I < 0.02, RT-Luk-R-Type Natriuretic Peptide 620H, Total Protein 7.6, Albumin 2.5L, Albumin/Globulin Ratio 0.5, Prealbumin 14.1L 01/30/20 05:42: Nucleated Red Blood Cells % (auto) 0.0, Anion Gap 10, Glomerular Filtration Rate 59.0, Calcium Level 9.0 CBC/BMP Laboratory Tests 01/29/20 19:51 01/30/20 05:42 GEORGINA CALDWELL MD Jan 30, 2020 10:27
[2020-01-30] MEDS ORDERED: DEXTROSE 50% 50 ML SYRINGE IV PRN (10:45)
[2020-01-30] MEDS ORDERED: GLUCAGON INJ 1MG VIAL SC PRN (10:45)
[2020-01-30] MEDS ORDERED: HumaLOG INSULIN (NovoLOG) PER UNIT SC SCH ×2 (10:45→12:45)
[2020-01-30] MEDS ORDERED: GLUCOSE 4GM CHEW TABLET PO PRN (10:45)
[2020-01-30] MEDS: ATORVASTATIN 10 MG TAB PO SCH (11:33)
[2020-01-30] MEDS: PANTOPRAZOLE 40MG TAB (PROTONIX) PO SCH (11:33)
[2020-01-30] MEDS: ENOXAPARIN 40MG/0.4ML SYRINGE (J1650 PER 10MG) SC SCH (11:33)
[2020-01-30] MEDS: predniSONE 20 MG TAB PO SCH (11:33)
[2020-01-30] MEDS: DOXYCYCLINE HYCLATE 100MG TABLET PO SCH ×2 (11:33→21:18)
[2020-01-30] MEDS: amLODIPine 5 MG TAB PO SCH (11:36)
[2020-01-30] MEDS: NYSTATIN CREAM 15 GM TOP SCH ×2 (11:40→21:19)
[2020-01-30 14:00] VITALS: BP 124/67
[2020-01-30] MEDS: HumaLOG INSULIN (NovoLOG) PER UNIT SC SCH ×3 (14:35→21:00)
[2020-01-30] MEDS: TAMSULOSIN 0.4 MG CAP PO SCH (21:18)
[2020-01-30] MEDS: DONEPEZIL 5 MG TAB PO SCH (21:18)
[2020-01-30 22:00] VITALS: BP 154/73
[2020-01-31] MEDS: IPRATROPIUM 0.5MG/ALBUTEROL 2.5MG INH SOL UD 3ML (DUONEB) NEB SCH ×4 (01:16→19:57)
[2020-01-31 06:00] VITALS: BP 124/58
[2020-01-31] MEDS: HumaLOG INSULIN (NovoLOG) PER UNIT SC SCH ×4 (07:30→20:44)
[2020-01-31] MEDS: FLUBLOK(EGG FREE)(QUAD)INFLUENZA VACC 0.5ML SYRINGE 18YRS & OLDER IM ONE ×2 (09:00→12:32)
[2020-01-31 09:33] LABS: BASO % 0.1 % (0.0-1.0); HEMATOCRIT 31.5 % (42.0-52.0); HEMOGLOBIN 10.2 g/dl (13.5-17.5); LYMPH # 0.9 10^3/uL (1.5-5.0); MEAN CORPUSCULAR HEMOGLOBIN 28.7 pg (27.0-33.0); MEAN CORPUSCULAR HGB CONC 32.4 g/dl (32.0-36.5); MEAN CORPUSCULAR VOLUME 88.7 fl (80.0-96.0); MONO # 1.2 10^3/uL (0.0-0.8); NEUTROPHILS % 90.3 % (36.0-66.0); PLATELET COUNT, AUTOMATED 365 10^3/uL (150-450); RED BLOOD COUNT 3.55 10^6/uL (4.30-6.10); WHITE BLOOD COUNT 23.3 10^3/uL (4.0-10.0)
[2020-01-31 10:33] LABS: ALBUMIN 2.5 GM/DL (3.2-5.2); ALT/SGPT 23 U/L (12-78); BILIRUBIN,TOTAL 0.5 MG/DL (0.2-1.0); BLOOD UREA NITROGEN 31 MG/DL (7-18); CALCIUM LEVEL 9.3 MG/DL (8.8-10.2); CARBON DIOXIDE LEVEL 27 MEQ/L (21-32); CHLORIDE LEVEL 104 MEQ/L (98-107); CREATININE FOR GFR 1.14 MG/DL (0.70-1.30); GLOMERULAR FILTRATION RATE > 60.0 (>35); GLUCOSE, FASTING 125 MG/DL (70-100); POTASSIUM SERUM 3.7 MEQ/L (3.5-5.1); SODIUM LEVEL 138 MEQ/L (136-145); TOTAL PROTEIN 7.6 GM/DL (6.4-8.2)
[2020-01-31] MEDS: predniSONE 20 MG TAB PO SCH (10:38)
[2020-01-31] MEDS: amLODIPine 5 MG TAB PO SCH (10:40)
[2020-01-31] MEDS: DOXYCYCLINE HYCLATE 100MG TABLET PO SCH ×2 (10:41→20:43)
[2020-01-31] MEDS: PANTOPRAZOLE 40MG TAB (PROTONIX) PO SCH (10:41)
[2020-01-31] MEDS: ATORVASTATIN 10 MG TAB PO SCH (10:41)
[2020-01-31] MEDS: NYSTATIN CREAM 15 GM TOP SCH ×2 (10:43→20:43)
[2020-01-31] MEDS: ENOXAPARIN 40MG/0.4ML SYRINGE (J1650 PER 10MG) SC SCH (10:43)
--- NOTE | 2020-01-31 12:25 | DS.PDOC ---
Discharge Summary General Date of Admission Jan 29, 2020 at 21:10 Date of Discharge 01/31/20 Attending Physician: GEORGINA CALDWELL MD Discharge Summary PROCEDURES PERFORMED DURING STAY: [None]. ADMITTING DIAGNOSES: 1. Acute COPD exacerbation 2. Left lower lobe pneumonia 3. Dysphagia 4. Advanced dementia 5. PVD 6. Chronic HTN 7. Grade 1 diastolic dysfunction 8. BPH 9. Protein calorie malnutrition 10. Bed bound DISCHARGE DIAGNOSES: 1. Acute COPD exacerbation 2. Left lower lobe pneumonia 3. Dysphagia 4. Advanced dementia 5. PVD 6. Chronic HTN 7. Grade 1 diastolic dysfunction 8. BPH 9. Protein calorie malnutrition 10. Bed bound. COMPLICATIONS/CHIEF COMPLAINT: Dysphagia, Pneumonia. HISTORY OF PRESENT ILLNESS: This 84-year-old gentleman with advanced dementia was brought to the hospital by his for evaluation of coughing and choking on his food. She also commented that he to be intermittently confused. Other than that, she denied noticing him complain about anything, noticing fevers or chills, or any other acute complaints. She admitted to having a sore throat over the last few days. She provides him with food that is a pudding consistency and thickening, the fluids that he consumes. HOSPITAL COURSE: Patient was admitted with acute COPD exacerbation secondary to left lower lobe community-acquired pneumonia. He required oxygen supplementation via nasal cannula, was treated with prednisone, doxycycline and DuoNebs. With therapy, oxygen saturation maintained above 92% on room air. Patient became significantly more alert and communicative and regain ability to follow commands. He was also evaluated by speech therapy who recommended no changes to diet and to continue with level I pured diet. #Acute COPD exacerbation: 2/2 community acquire pneumonia. duonebs prn. Required 4LNC to maintain sat > 88 in ED. Cont pulse ox. Prednisone. PPI. ISS. Improved on therapy, saturating >92% on RA. #AMS: improved significantly with treatment, patient verbal, follows commands and is oriented to person and place. #Left lower lobe PNA: afebrile throughout admission O2 supplementation. s/p Zosyn in ED. switched to PO doxycycline. tylenol prn for fevers #Choking/dysphagia: soft mech diet.speech therapy for swallow eval. Likely dementia related. Consumes altered diet at home. #Advanced dementia: c/w donepezil. outpatient gilbert amina, PCP referral #PVD: atorvastatin #Chronic HTN/G1DD CHF: amlodipine #BPH: flomax #Sarcopenia/Protein Calorie Malnutrition: material damage adjuster austin huynh on DC. DISCHARGE MEDICATIONS: Please see below. ALLERGIES: Please see below. PHYSICAL EXAMINATION ON DISCHARGE: VITAL SIGNS: please see below General: Thin, communicative, alert and oriented to person and place. HEENT: PERRLA, nasal cannula Neck: supple, normal ROM, no JVD Respiratory: Air entry bilateral, equal, breath sounds diminished CVS: RRR, normal S1, S2, no murmurs Abdo: soft, no masses, no hepatosplenomegaly, BS+, no rebound tenderness Extremities: no edema, pulses 2+ MSK: no joint deformities, normal ROM, temporal wasting, chronic heel ulcers. Neuro: Moving 4 extremities, no focal neuro deficits Psych: Calm, alert and oriented x 2 LABORATORY DATA: Please see below. IMAGING: Chest xray "IMPRESSION: 1. Left lower lobe infiltrate. 2. Linear parenchymal opacities right lower lobe most likely represent atelectasis or scarring and less likely infiltrates." CT head "1. There is parenchymal volume loss. White matter changes are demonstrated in the subcortical, centrum semiovale and periventricular white matter consistent with age related small vessel white matter ischemic changes. 2. No acute findings." PROGNOSIS: fair ACTIVITY: As tolerated DIET: Recommend: No diet changes at this time. Puree (level 1) and nectar thick liquids. Recommend: Small sips of liquids. Recommend: NO soup spoons Recommend: OOB and upright for all intake. DISCHARGE PLAN: home with family care, and home health DISPOSITION: home with family care. DISCHARGE INSTRUCTIONS: Patient was evaluated by speech therapy and recommended the following: Recommend: No diet changes at this time. Puree (level 1) and nectar thick liquids. Recommend: Small sips of liquids. Recommend: NO soup spoons Recommend: OOB and upright for all intake. DISCHARGE CONDITION: Stable TIME SPENT ON DISCHARGE: Greater than 30 minutes. Vital Signs/I&Os Vital Signs Date Time Temp Pulse Resp B/P (MAP) Pulse Ox O2 Delivery O2 Flow Rate FiO2 01/31/20 10:49 94 Nasal Cannula 1.0 01/31/20 10:40 65 125/60 01/31/20 06:00 97.8 18 I&O- Last 24 Hours up to 6 AM 01/31/20 05:59 Intake Total 320 ml Output Total 0 ml Balance 320 ml Laboratory Data Labs 24H Laboratory Tests 2 01/30/20 13:58: Bedside Glucose (Misc Panel) 188H 01/30/20 16:34: Bedside Glucose (Misc Panel) 147H 01/30/20 21:06: Bedside Glucose (Misc Panel) 127H 01/31/20 06:37: Bedside Glucose (Misc Panel) 92 01/31/20 09:16: Immature Granulocyte % (Auto) 0.6, Neutrophils (%) (Auto) 90.3H, Lymphocytes (%) (Auto) 4.0L, Monocytes (%) (Auto) 5.0, Eosinophils (%) (Auto) 0.0, Basophils (%) (Auto) 0.1, Neutrophils # (Auto) 21.0H, Lymphocytes # (Auto) 0.9L, Monocytes # (Auto) 1.2H, Eosinophils # (Auto) 0.0, Basophils # (Auto) 0.0, Nucleated Red Blood Cells % (auto) 0.0, Anion Gap 7L, Glomerular Filtration Rate > 60.0, Calcium Level 9.3, Total Bilirubin 0.5, Aspartate Amino Transf (AST/SGOT) 17, Alanine Aminotransferase (ALT/SGPT) 23, Alkaline Phosphatase 118H, Total Protein 7.6, Albumin 2.5L, Albumin/Globulin Ratio 0.5 CBC/BMP Laboratory Tests 01/31/20 09:16 FSBS Laboratory Tests Test 01/30/20 13:58 01/30/20 16:34 01/30/20 21:06 01/31/20 06:37 Range/Units Bedside Glucose (Misc Panel) 188 147 127 92 83-110 MG/DL Microbiology Microbiology 01/31/20 Gram Stain, Received Pending 01/31/20 Sputum Culture, Received Pending Discharge Medications Scheduled Amlodipine Besylate (Amlodipine Besylate) 5 Mg Tablet, 5 MG PO DAILY, (Reported) Ascorbic Acid (Vitamin C) 500 Mg Capsule, 500 MG PO DAILY, (Reported) Atorvastatin Calcium (Atorvastatin Calcium) 10 Mg Tablet, 10 MG PO DAILY, (Reported) Cholecalciferol (Vitamin D3) (Vitamin D3) 1,000 Unit Tablet, 1,000 UNITS PO QHS, (Reported) Cyanocobalamin (Vitamin B-12) (Vitamin B-12) 1,000 Mcg Tab.subl, 1,000 MCG SL QHS, (Reported) Donepezil HCl (Donepezil HCl) 10 Mg Tablet, 10 MG PO QHS, (Reported) Nystatin (Nystatin) 15 Gm Cream..g., 1 APLCT TOP BID, (Reported) BUTTOCK Tamsulosin HCl (Flomax) 0.4 Mg Capsule, 0.8 MG PO QHS, (Reported) Allergies Coded Allergies: No Known Allergies (Unverified , 12/09/18) GEORGINA CALDWELL MD Jan 31, 2020 12:25
[2020-01-31] MEDS ORDERED: ACET1TAB55 PO (12:28)
[2020-01-31] MEDS ORDERED: DOXY100T PO (12:28)
[2020-01-31] MEDS ORDERED: PRED20TA PO (12:28)
[2020-01-31] MEDS ORDERED: ALB2.5NEB NEB (12:28)
[2020-01-31] MEDS ORDERED: IPRA0.00 NEB (12:28)
[2020-01-31] MEDS ORDERED: PARIMIS XX (12:31)
[2020-01-31 14:00] VITALS: BP 128/63
[2020-01-31] MEDS: TAMSULOSIN 0.4 MG CAP PO SCH (20:43)
[2020-01-31] MEDS: DONEPEZIL 5 MG TAB PO SCH (20:43)
[2020-01-31 22:00] VITALS: BP 138/57
[2020-02-01] MEDS: IPRATROPIUM 0.5MG/ALBUTEROL 2.5MG INH SOL UD 3ML (DUONEB) NEB SCH ×2 (02:38→07:30)
[2020-02-01 06:00] VITALS: BP 138/57
[2020-02-01 06:50] LABS: BASO % 0.2 % (0.0-1.0); HEMATOCRIT 28.5 % (42.0-52.0); HEMOGLOBIN 9.2 g/dl (13.5-17.5); LYMPH # 0.9 10^3/uL (1.5-5.0); LYMPH % 5.2 % (24.0-44.0); MEAN CORPUSCULAR HEMOGLOBIN 28.7 pg (27.0-33.0); MEAN CORPUSCULAR HGB CONC 32.3 g/dl (32.0-36.5); MEAN CORPUSCULAR VOLUME 88.8 fl (80.0-96.0); MONO # 1.1 10^3/uL (0.0-0.8); MONO % 5.9 % (0.0-5.0); NEUTROPHILS # 15.6 10^3/uL (1.5-8.5); NEUTROPHILS % 87.5 % (36.0-66.0); PLATELET COUNT, AUTOMATED 349 10^3/uL (150-450); RED BLOOD COUNT 3.21 10^6/uL (4.30-6.10); WHITE BLOOD COUNT 17.9 10^3/uL (4.0-10.0)
[2020-02-01 07:14] LABS: ALBUMIN 2.3 GM/DL (3.2-5.2); BILIRUBIN,TOTAL 0.3 MG/DL (0.2-1.0); CALCIUM LEVEL 8.8 MG/DL (8.8-10.2); CREATININE FOR GFR 1.23 MG/DL (0.70-1.30); GLOMERULAR FILTRATION RATE 59.5 (>35); TOTAL PROTEIN 6.8 GM/DL (6.4-8.2)
[2020-02-01] MEDS: HumaLOG INSULIN (NovoLOG) PER UNIT SC SCH ×2 (07:30→12:00)
[2020-02-01] MEDS: ATORVASTATIN 10 MG TAB PO SCH (08:54)
[2020-02-01] MEDS: predniSONE 20 MG TAB PO SCH (08:54)
[2020-02-01] MEDS: PANTOPRAZOLE 40MG TAB (PROTONIX) PO SCH (08:54)
[2020-02-01] MEDS: DOXYCYCLINE HYCLATE 100MG TABLET PO SCH (08:54)
[2020-02-01 08:55] VITALS: BP 139/58
[2020-02-01] MEDS: ENOXAPARIN 40MG/0.4ML SYRINGE (J1650 PER 10MG) SC SCH (08:55)
[2020-02-01] MEDS: NYSTATIN CREAM 15 GM TOP SCH (08:55)
[2020-02-01] MEDS: amLODIPine 5 MG TAB PO SCH (08:55)
== END 2020-02-01 14:15 | disposition home health service (06) | DRG 190 ==
LOC: M ED 19:12 → M ED INP 21:10 → ENRESERV 21:34 → M MSPAV 22:50
PROVIDERS: ADMIT Internal Medicine; ATTEND Family Medicine
DX: J44.1 Chronic obstructive pulmonary disease with (acute) exacerbation (principal); J18.9 Pneumonia, unspecified organism; I50.32 Chronic diastolic (congestive) heart failure; E46 Unspecified protein-calorie malnutrition; J44.0 Chronic obstructive pulmonary disease with (acute) lower respiratory infection; F03.90 Unspecified dementia, unspecified severity, without behavioral disturbance, psychotic disturbance, mood disturbance, and anxiety; M62.84 Sarcopenia; I11.0 Hypertensive heart disease with heart failure; N40.0 Benign prostatic hyperplasia without lower urinary tract symptoms; I73.9 Peripheral vascular disease, unspecified; Z79.899 Other long term (current) drug therapy; Z89.421 Acquired absence of other right toe(s)

== ENCOUNTER 2020-04-22 18:59 | Emergency (ER) | payer MEDICARE, OTHER, BC ==
[~2020-04-22 18:59] MED LIST changes: +ACET1TAB55 PO; +ALB2.5NEB NEB; +D31000TA2 PO; +DOXY100T PO; +IPRA0.00 NEB; +NYST10CR TOP; +PARIMIS XX; +PRED20TA PO; +VITA500C24 PO
[2020-04-22 19:15] VITALS: BP 144/67
[2020-04-22 19:56] LABS: BASO % 0.2 % (0.0-1.0); HEMATOCRIT 33.8 % (42.0-52.0); LYMPH # 0.4 10^3/uL (1.5-5.0); LYMPH % 4.2 % (24.0-44.0); MEAN CORPUSCULAR HEMOGLOBIN 28.9 pg (27.0-33.0); MEAN CORPUSCULAR HGB CONC 32.5 g/dl (32.0-36.5); MEAN CORPUSCULAR VOLUME 88.7 fl (80.0-96.0); MONO # 0.1 10^3/uL (0.0-0.8); MONO % 0.8 % (0.0-5.0); NEUTROPHILS # 9.5 10^3/uL (1.5-8.5); NEUTROPHILS % 94.4 % (36.0-66.0); PLATELET COUNT, AUTOMATED 472 10^3/uL (150-450); RED BLOOD COUNT 3.81 10^6/uL (4.30-6.10); WHITE BLOOD COUNT 10.1 10^3/uL (4.0-10.0)
[2020-04-22 20:07] LABS: INR 1.01; PROTHROMBIN TIME 13.5 SECONDS (12.5-14.3)
--- NOTE | 2020-04-22 20:08 | REPVR ---
PROCEDURE INFORMATION: Exam: XR Chest, 1 View Exam date and time: 04/22/2020 7:36 PM Age: 84 years old Clinical indication: Other: Weakness TECHNIQUE: Imaging protocol: XR of the chest Views: 1 view. COMPARISON: CR PORTABLE CHEST X-RAY 01/29/2020 8:32 PM FINDINGS: Lungs: There is been clearing of a previously demonstrated left lower lobe infiltrate. Residual increased interstitial lung markings demonstrated bilaterally, left greater than right consistent with underlying interstitial lung disease. Pleural space: Blunting of the left costophrenic angle may be chronic or indicate a small pleural effusion. Heart/Mediastinum: Unremarkable. No cardiomegaly. Bones/joints: The spine demonstrates moderate degenerative changes. Osteoporosis. Dextroscoliosis. IMPRESSION: 1. There is been clearing of a previously demonstrated left lower lobe infiltrate. Residual increased interstitial lung markings demonstrated bilaterally, left greater than right consistent with underlying interstitial lung disease. 2. Blunting of the left costophrenic angle may be chronic or indicate a small pleural effusion. Electronically signed by: Palomo Dave On 04/22/2020 20:07:52 PM
[2020-04-22 20:31] LABS: ALBUMIN 2.4 GM/DL (3.2-5.2); ALT/SGPT 19 U/L (12-78); BILIRUBIN,TOTAL 0.5 MG/DL (0.2-1.0); BLOOD UREA NITROGEN 18 MG/DL (7-18); CALCIUM LEVEL 8.9 MG/DL (8.8-10.2); CARBON DIOXIDE LEVEL 26 MEQ/L (21-32); CHLORIDE LEVEL 100 MEQ/L (98-107); CREATININE FOR GFR 1.05 MG/DL (0.70-1.30); GLOMERULAR FILTRATION RATE > 60.0 (>35); GLUCOSE, FASTING 154 MG/DL (70-100); POTASSIUM SERUM 4.3 MEQ/L (3.5-5.1); SODIUM LEVEL 136 MEQ/L (136-145); TOTAL PROTEIN 7.5 GM/DL (6.4-8.2)
--- NOTE | 2020-04-23 08:18 | ECGEPIP ---
[facility] - ED Test Date: 2020-04-22 Pat Name: VLADIMIR POOLE Department: Room: - Gender: Male Associate Chief Nurse: PARVEZ : [id number] Requested By: ANGIE GARVIN Order Number: [id number] Reading MD: Harry Rodriguez Measurements Intervals [place] Rate: 74 P: 48 CT: 154 QRS: -20 QRSD: 89 T: 8 QT: 407 QTc: 453 Interpretive Statements SINUS RHYTHM MODERATE VOLTAGE CRITERIA FOR LVH, CONSIDER NORMAL VARIANT NSTTW ABNORMALITY(S) SIMILAR TO 01/29/20 Electronically Signed on 04-23-2020 8:18:10 EST by Harry Rodriguez
== END 2020-04-22 21:45 | disposition home or self-care (01) ==
LOC: M ED 18:59
DX: R53.1 Weakness (principal); R91.8 Other nonspecific abnormal finding of lung field; Z79.51 Long term (current) use of inhaled steroids; Z79.899 Other long term (current) drug therapy